=== PATIENT | female | born 1965 | race Caucasian/White ===

== ENCOUNTER 2019-04-07 13:51 | Outpatient (CLI) | payer MEDICARE, MEDICAID, SELFPAY ==
[2019-04-07 14:31] LABS: INR 1.1; Prothrombin Time 13.7 Seconds (11.1-14.7)
[2019-04-07 14:32] LABS: Partial Thromboplastin Time 32.8 SECONDS (22.3-36.8)
[2019-04-07 14:35] LABS: Blood Urea Nitrogen 10 mg/dL (7-17); Calcium 8.4 mg/dL (8.4-10.2); Carbon Dioxide 25 mmol/L (22-30); Chloride 105 mmol/L (98-107); Estimated Glomerular Filt Rate > 60; Glucose 83 mg/dL (65-105); Potassium 4.2 mmol/L (3.4-5.0); Sodium 136 mmol/L (137-145)
== END 2019-04-07 13:52 | disposition home or self-care (01) ==
LOC: ANHSURGERY 14:00
PROVIDERS: Anesthesiology; PCP Internal Medicine; Visit Provider Otolaryngology
DX: Z51.81 Encounter for therapeutic drug level monitoring (principal); R69 Illness, unspecified
CPT/HCPCS: 36415; 80048; 85610; 85730

== ENCOUNTER 2019-04-13 00:56 | Day surgery (SDC) | payer MEDICARE, MEDICAID, SELFPAY ==
[2019-04-06 11:33] VITALS: BMI 35.5
--- NOTE | 2019-04-12 11:25 | HP_ITS ---
DATE OF SERVICE: 04/13/2019 HISTORY: A 53-year-old with hoarseness. She has a long history of hoarseness. Her throat is not sore. She has been coughing. She has been on multiple medications. REVIEW OF SYSTEMS: Unremarkable. Cords are irritated on indirect examination. PHYSICAL EXAMINATION: CHEST: Clear. HEART: Without murmurs. ABDOMEN: Soft. EXTREMITIES: Negative. IMPRESSION: Hoarseness, possible vocal nodules. PLAN: Microlaryngoscopy and vocal stripping. D I MT: Say
--- NOTE | 2019-04-12 18:01 | WPDANESEPP ---
Anes - Eval Pre Procedure Procedure: Operation Date: 04/13/19 07:30 Proposed Procedures p Microlaryngoscopy with Biopsy - King Shin MD Date/Time: 04/12/19 18:01 Pre Op Diagnosis: Chronic Hoarseness Patient Data Age: 53 Gender: F Height: 1.68 m Weight: 99.79 kg Allergies Allergy/AdvReac Type Severity Reaction Status Date / Time pioglitazone Allergy Unknown Unknown Verified 04/06/19 11:34 fentanyl AdvReac Unknown N/V Verified 04/06/19 11:34 Home Medications Medication Instructions Recorded Confirmed Type amlodipine 5 mg tablet 5 mg PO DAILY 01/20/19 04/06/19 History levothyroxine 125 mcg tablet 125 mcg PO DAILY 01/20/19 04/06/19 History potassium chloride 10 mEq 10 meq PO DAILY 01/20/19 04/06/19 History tablet,extended release promethazine 25 mg tablet 25 mg PO Q6H PRN 01/20/19 04/06/19 History albuterol sulfate 2 puff INHALATION Q6H PRN 04/06/19 04/06/19 History citalopram 20 mg PO DAILY 04/06/19 04/06/19 History cyclobenzaprine 10 mg PO TID PRN 04/06/19 04/06/19 History diclofenac sodium 1 % TOPICAL DAILY PRN 04/06/19 04/06/19 History diclofenac sodium 100 mg PO BID 04/06/19 04/06/19 History furosemide 80 mg PO DAILY 04/06/19 04/06/19 History gabapentin 300 mg PO TID 04/06/19 04/06/19 History lidocaine 1 applic TOPICAL DAILY PRN 04/06/19 04/06/19 History pantoprazole 40 mg PO QAM 04/06/19 04/06/19 History trazodone 50 - 150 mg PO HS 04/06/19 04/06/19 History warfarin 2 mg PO DAILY 04/06/19 04/06/19 History warfarin 5 mg PO DAILY 04/06/19 04/06/19 History Patient hx anesthesia problems: other (slow to wake) Family hx anesthesia problems: other (mother is also slow to wake) [facility], LAT[facility] Past Medical History Medical History (Updated 04/12/19 @ 18:08 by Tara Eastman CRNA) Anxiety Arthritis Asthma Carpal tunnel syndrome CHF (congestive heart failure) Chronic pain Cirrhosis CVA (cerebral vascular accident) Degenerative disc disease Depression Diabetes 1.5, managed as type 2 Fibromyalgia GERD (gastroesophageal reflux disease) Gout Headaches due to old head injury Heart murmur HTN (hypertension) IBS (irritable bowel syndrome) Methadone dependence ALAYNA (obstructive sleep apnea) Surgical History Surgical History (Updated 04/12/19 @ 18:08 by Tara Eastman CRNA) H/O: hysterectomy History of bilateral carpal tunnel release Hx of cholecystectomy Previous section Family History Family History (Updated 09/29/15 @ 23:19 by DOCTOR UNKNOWN) Mother Hypertension Family history of malignant neoplasm of breast in first degree relative Father Family history of heart disease in male family member before age 55 Other Family history of malignant neoplasm of male breast Social History Social History Smoking status: Never smoker Alcohol intake: never Exam Day of Procedure 04/12/19 18:01
[2019-04-13] VITALS (7 sets, daily range): BP systolic 121–165; BP diastolic 52–81; PULSE 100–110; RESP 20–22; TEMP 37–37.3; O2SAT 92–100
--- NOTE | 2019-04-13 05:44 | WPDHPUPDATE1 ---
History and Physical Update Update Date/Time: 04/13/19 05:44 History and Physical has been reviewed, including an updated exam of the patient. There are NO changes in the patient's condition. Risks, benefits, and alternatives have been discussed and questions answered. Patient agrees to proceed with procedure.
[2019-04-13] MEDS: LACTATED RINGERS 1,000 ML 30 ML IV CONT (06:40)
--- NOTE | 2019-04-13 06:54 | WPDANESEFPP ---
Anes - Eval Final PreProcedure Day of Procedure 04/13/19 06:54 Patient weight: obese Lungs: clear to auscultation Airway: Mallampati scale class II and special considerations poor dentition Neurological: alert and oriented ASA classification: IV Emergent: no Anesthetic plan: proceed Anesthesia type and monitoring: general ETT and standard monitoring Informed Consent: The patient's anesthetic plan and its attendant risks and benefits were discussed with the patient/family/POA. Questions were solicited and answers provided to the satisfaction of the patient/family/POA.
--- NOTE | 2019-04-13 07:36 | PM.OP ---
Procedure Note - Brief Procedure Note - Brief Date of procedure: 04/13/19 Pre-op diagnosis: Chronic Hoarseness Procedure performed: Patient was prepped and draped and general anesthesia the laryngoscope was introduced to the level of glottis. With micro technique a small area of leukoplakia on the right cord was stripped off of smaller area on the left side was stripped off sent for pathologic examination. Patient awakened returned to recovery in good condition Anesthesia: GLMA and GETA Surgeon: King Shin MD Estimated blood loss (mL): 0 Drains: No Packing: No Pathology: yes Complications: No immediate complications Condition: stable Disposition: PACU
--- NOTE | 2019-04-13 08:34 | SUR.PHASEI ---
0830; PT AWAKE AND ALERT. DENIES PAIN. NO LONGER COUGHING. READY FOR PO FLUIDS.
== END 2019-04-13 09:33 | disposition home or self-care (01) ==
PROVIDERS: PCP Internal Medicine; Visit Provider Otolaryngology
PROC: 0CJS8ZZ Inspection of Larynx, Via Natural or Artificial Opening Endoscopic (ICD-10-PCS; CPT 31575; principal; 2019-04-13 07:30)
DX: J38.3 Other diseases of vocal cords (principal); I11.0 Hypertensive heart disease with heart failure; I50.9 Heart failure, unspecified; E13.9 Other specified diabetes mellitus without complications; K74.60 Unspecified cirrhosis of liver; M79.7 Fibromyalgia; K21.9 Gastro-esophageal reflux disease without esophagitis; F41.8 Other specified anxiety disorders; Z86.73 Personal history of transient ischemic attack (TIA), and cerebral infarction without residual deficits; M10.9 Gout, unspecified; G47.33 Obstructive sleep apnea (adult) (pediatric); K58.9 Irritable bowel syndrome, unspecified; F11.90 Opioid use, unspecified, uncomplicated; G89.29 Other chronic pain; J45.909 Unspecified asthma, uncomplicated; M19.90 Unspecified osteoarthritis, unspecified site; Z79.01 Long term (current) use of anticoagulants
CPT/HCPCS: 31541; 88305; A9270; J0330; J1170; J2250; J2405; J2704; J7120

== ENCOUNTER 2019-04-27 23:14 | Emergency (ER) | payer MEDICARE, MEDICAID, SELFPAY ==
--- NOTE | ~2019-04-27 | CT_ITS ---
EXAMINATION: Shakira Murray MD DATE: 04/28/2019 02:35 INDICATION: Chest pain radiating to the right flank. TECHNIQUE: Computed tomographic angiography (CTA) of the chest, abdomen, and pelvis was performed wit h 100 mL Omnipaque-350 intravenous contrast. Automated exposure control and iterative reconstruction technique were employed. The dose-length product was 1728.88 mGy-cm. Maximum intensity projection 3D- reconstructions of the aorta and other arteries were constructed by the technologist on a separate wo rkstation. COMPARISON: CT abdomen and pelvis 03/14/2018 FINDINGS: CHEST CTA: The lungs demonstrate mild atelectasis. No pleural effusion. The heart size is normal. No pericardial effusion. There is no pulmonary embolus. Thoracic aorta is normal in caliber. There is moderate thor acic spondylosis. ABDOMEN AND PELVIS CTA: The liver demonstrates surface nodularity, consistent with cirrhosis. There is a TIPS in expected pos ition that is patent. There are changes of cholecystectomy. There are changes of splenic artery aneur ysm embolization. The spleen is mildly enlarged, consistent with portal venous hypertension. There is focal volume loss of the spleen, consistent with old infarct. The pancreas and adrenal glands are no rmal. There is cortical thinning of the kidneys. There is a 4 mm stone in right kidney. There are no dilated loops of bowel. The appendix is normal. There is wall thickening of the proximal duodenum wit h mild fat stranding. There are no pathologically enlarged lymph nodes. There is trace ascites. Abdom inal aorta is normal in caliber. There is moderate lumbar spondylosis. IMPRESSION: 1. Normal aorta. No aneurysm or dissection. 2. Cirrhosis of the liver status post TIPS. 2. Wall thickening in the proximal duodenum with mild fat stranding suspicious for duodenitis. Reviewed, dictated and finalized at location A. SELOR MANAGER
[2019-04-27 23:29] VITALS: BP 135/67; PULSE 99; RESP 20; TEMP 36.6; O2SAT 98
--- NOTE | 2019-04-28 01:36 | ED.ABDPAIN ---
HPI - Abdominal Pain General Chief Complaint: Back Pain/Injury Stated Complaint: back pain Time Seen by Provider: 04/28/19 01:19 Source: patient and RN notes reviewed Mode of arrival: ambulatory Limitations: no limitations History of Present Illness HPI narrative: Pt is a 53 y/o female with a Hx of kidney stones and chronic back pain, who presents to the ED with c/o rt lower ABD pain starting this evening. She notes that she developed pain in the rt side of her back while at work earlier this evening. Pt states that she took prescribed Gabapentin for her pain, but denies having any relief from her pain. She notes that she later developed pain in the rt side of her chest and rt lower ABD. Pt describes her chest pain as a pressure. She reports nausea and SOB accompanying the intense pain, but denies any diaphoresis, LE edema, numbness, dysuria, hematuria, shoulder pain, jaw pain, or arm pain. Pt states that she was recently diagnosed with acute bronchitis. Patient denies any chest pain currently. MD elicited complaint: abdominal pain Onset (ago): hour(s) (several) Location: other (rt lower ABD) Associated symptoms: nausea and other (rt sided chest pain; back pain; dyspnea) Treatments prior to arrival: prescription analgesics (Gabapentin) Related Data Home Medications Medication Instructions Recorded Confirmed amlodipine 5 mg tablet 5 mg PO DAILY 01/20/19 04/13/19 levothyroxine 125 mcg tablet 125 mcg PO DAILY 01/20/19 04/13/19 potassium chloride 10 mEq 10 meq PO DAILY 01/20/19 04/13/19 tablet,extended release promethazine 25 mg tablet 25 mg PO Q6H PRN 01/20/19 04/13/19 albuterol sulfate 2 puff INHALATION Q6H PRN 04/06/19 04/13/19 citalopram 20 mg PO DAILY 04/06/19 04/13/19 cyclobenzaprine 10 mg PO TID PRN 04/06/19 04/13/19 diclofenac sodium 1 % TOPICAL DAILY PRN 04/06/19 04/13/19 diclofenac sodium 100 mg PO BID 04/06/19 04/13/19 furosemide 80 mg PO DAILY 04/06/19 04/13/19 gabapentin 300 mg PO TID 04/06/19 04/13/19 lidocaine 1 applic TOPICAL DAILY PRN 04/06/19 04/13/19 pantoprazole 40 mg PO QAM 04/06/19 04/13/19 trazodone 50 - 150 mg PO HS 04/06/19 04/13/19 warfarin 2 mg PO DAILY 04/06/19 04/13/19 warfarin 5 mg PO DAILY 04/06/19 04/13/19 doxepin 10 mg PO DAILY 04/28/19 04/28/19 duloxetine mg PO 04/28/19 ferrous sulfate 325 mg PO DAILY 04/28/19 04/28/19 fluticasone propionate INTRANASAL 04/28/19 furosemide 04/28/19 rizatriptan 10 mg PO ONCE 04/28/19 04/28/19 simethicone 80 mg PO DAILY 04/28/19 04/28/19 sitagliptin 25 mg PO DAILY 04/28/19 04/28/19 spironolactone 04/28/19 Allergies Allergy/AdvReac Type Severity Reaction Status Date / Time fentanyl AdvReac Unknown N/V Verified 04/28/19 02:29 Review of Systems Review of Systems: Narrative: CONSTITUTIONAL: Denies fever, chills, or sweats. CARDIOVASCULAR: Reports rt sided chest pain, now resolved. Denies palpitations or LE edema. RESPIRATORY: Denies cough. Reports dyspnea. GASTROINTESTINAL: Reports rt lower abdominal pain and nausea. Denies vomiting or diarrhea. GENITOURINARY: Denies dysuria or hematuria. MUSCULOSKELETAL: Reports back pain. Denies joint pain, jaw pain, arm pain, or myalgia. All systems reviewed & are unremarkable except as noted in HPI and below PMFSH Past Medical History Medical History (Updated 04/28/19 @ 05:11 by Shakira Murray MD) Anxiety Arthritis Asthma Carpal tunnel syndrome CHF (congestive heart failure) Chronic pain Cirrhosis CVA (cerebral vascular accident) Degenerative disc disease Depression Diabetes 1.5, managed as type 2 Fibromyalgia GERD (gastroesophageal reflux disease) Gout Headaches due to old head injury Heart murmur HTN (hypertension) IBS (irritable bowel syndrome) Kidney stones Methadone dependence ALAYNA (obstructive sleep apnea) Surgical History Surgical History H/O: hysterectomy History of bilateral carpal tunnel release Hx of cholecystectomy Previous section
[2019-04-28 01:42] VITALS: BP 163/76; PULSE 90; RESP 18; O2SAT 100
--- NOTE | 2019-04-28 01:43 | ECG_ITS ---
Measurements Intervals [place] Rate: 92 P: 37 OH: 139 QRS: 0 QRSD: 104 T: 40 QT: 374 QTc: 463 Interpretive Statements SINUS RHYTHM VOLTAGE CRITERIA FOR LVH CONSIDER INFERIOR INFARCT, AGE INDETERMINATE ABNORMAL ECG Electronically Signed On 04-28-2019 7:08:16 WAREHOUSE OPERATIONS MANAGER by Faizan Cedillo D.O.
[2019-04-28 02:01] LABS: Basophils Percent Auto 0.5 % (0.2-1.2); Eosinophils Absolute Auto 0.1 K/mm3 (0-0.3); Hemoglobin 9.2 g/dL (12.0-15.0); Immature Granulocyte Absolute 0.02 K/mm3 (0.00-0.031); Immature Granulocyte Percent A 0.3 % (0-0.5); Lymphocytes Absolute Auto 0.81 K/mm3 (0.9-3.2); Mean Corpuscular HGB Conc 30.7 g/dl (32-36); Mean Corpuscular Hemoglobin 23.8 pg (26-34); Mean Corpuscular Volume 77.7 fl (80-100); Mean Platelet Volume 9.2 fl (7.4-10.4); Monocytes Absolute Auto 0.5 K/mm3 (0.1-0.6); Monocytes Percent Auto 7.1 % (2.6-8.5); Neutrophils Absolute Auto 5.9 K/mm3 (1.3-6.7); Neutrophils Percent Auto 80.1 % (45.5-73.1); Platelet Count Result 205 k/mm3 (150-375); Red Blood Count 3.86 M/mm3 (4.2-5.4); Red Cell Distribution Width 18.2 % (11.5-14.5); White Blood Count 7.4 K/mm3 (4.5-10.0)
[2019-04-28 02:09] LABS: INR 1.2; Prothrombin Time 14.4 Seconds (11.1-14.7)
[2019-04-28 02:10] LABS: Partial Thromboplastin Time 33.7 SECONDS (22.3-36.8)
[2019-04-28 02:12] LABS: Alanine Aminotransferase 52 U/L (4-35); Albumin Level 3.1 g/dL (3.5-5.1); Alkaline Phosphatase 265 U/L (38-126); Aspartate Amino Transferase 89 U/L (14-36); Bilirubin,Total 0.8 mg/dL (0.2-1.3); Blood Urea Nitrogen 15 mg/dL (7-17); Calcium 8.7 mg/dL (8.4-10.2); Carbon Dioxide 23 mmol/L (22-30); Chloride 105 mmol/L (98-107); Estimated CRCL calculation 98 ml/min; Estimated Glomerular Filt Rate > 60; Glucose 122 mg/dL (65-105); Lipase 138 U/L (23-300); Potassium 4.1 mmol/L (3.4-5.0); Sodium 139 mmol/L (137-145)
[2019-04-28] MEDS: ACETAMINOPHEN 500 MG TABLET 1000 MG PO (02:22)
[2019-04-28] MEDS: ASPIRIN 81 MG CHEWABLE TABLET 324 MG PO (02:22)
[2019-04-28] MEDS: SODIUM CHLORIDE 0.9% IV 1,000 ML 999 ML IV CONT (02:22)
[2019-04-28 02:23] LABS: Troponin I < 0.012 ng/mL (0.000-0.034)
[2019-04-28] MEDS: FAMOTIDINE 20 MG/2 ML VIAL IV PUSH (02:23)
[2019-04-28] MEDS: ONDANSETRON INJ 4 MG/2 ML VIAL IV PUSH (02:23)
[2019-04-28] MEDS: MORPHINE SULFATE 4 MG/ML INJ IV PUSH (02:23)
[2019-04-28 02:45] VITALS: BP 154/70; PULSE 100; RESP 16; O2SAT 100
[2019-04-28 02:48] LABS: Add Urine Microscopic? YES; Appearance Urine Clear (Clear); Bilirubin Urine Negative (Negative); Blood Urine 3+ (Negative); Color Urine Yellow (Yellow); Glucose Urine UA Negative (Negative); Ketones Urine Negative (Negative); Leukocyte Esterase Ur Trace LEU/UL (Negative); Mucus Urine Moderate /lpf; Nitrate Urine Negative (Negative); Protein Urine 1+ mg/dL (Negative); RBC Urine 21-50 /hpf (0-2); Specific Grav Ur 1.028 (1.001-1.035); Squamous Epithelial Cell Urine Few /hpf (Few); Urobilinogen Urine Negative mg/dL (<2.0); WBC Urine 16-20 /hpf
[2019-04-28 04:01] VITALS: BP 135/72; PULSE 95; RESP 16; O2SAT 100
[2019-04-28 04:30] VITALS: BP 131/93; PULSE 97; RESP 16; O2SAT 100
[2019-04-28 04:39] LABS: Troponin I < 0.012 ng/mL (0.000-0.034)
[2019-04-28 05:23] VITALS: BP 141/56; PULSE 95; RESP 16; TEMP 36.8; O2SAT 100
== END 2019-04-28 05:25 | disposition home or self-care (01) ==
PROVIDERS: Emergency Provider Emergency Medicine; PCP Internal Medicine
DX: R10.31 Right lower quadrant pain (principal); R07.89 Other chest pain; I11.0 Hypertensive heart disease with heart failure; I50.9 Heart failure, unspecified; E11.9 Type 2 diabetes mellitus without complications; Z86.73 Personal history of transient ischemic attack (TIA), and cerebral infarction without residual deficits; Z79.01 Long term (current) use of anticoagulants
CPT/HCPCS: 36415; 71275; 74174; 80053; 81001; 83690; 84484; 85025; 85610; 85730; 87086; 87088; 93005; 96361; 96374; 96375; 99284; A9270; J2270; J2405; J7030; Q9967

== ENCOUNTER 2019-07-15 15:45 | Inpatient (IN) | payer MEDICARE, MEDICAID, SELFPAY ==
[2019-07-15] VITALS (7 sets, daily range): BP systolic 97–157; BP diastolic 46–114; PULSE 102–117; RESP 18–28; TEMP 38–39.2; O2SAT 94–100; BMI 36.3
--- NOTE | ~2019-07-15 | CT_ITS ---
EXAMINATION: CT abdomen pelvis wo con EXAM DATE: 07/15/2019 17:49 INDICATION: Right flank pain, fever. History of kidney stones. TECHNIQUE: Spiral CT of the abdomen and pelvis was performed without contrast. Axial, coronal and sag ittal images were reviewed. The dose-length product (DLP) for this examination was 627.03 mGy-cm. T he exposure was tailored according to patient size (auto mA exposure control), and iterative reconstr uction (ASIR) was used as additional dose reduction technique. Comparison is made to prior examinatio n from 04/28/2019. FINDINGS: There are 3 mm and 1 mm right superior calyceal stones. There is no hydronephrosis or obstr ucting kidney stone. Mild fat stranding surrounding the right upper ureter. Recommend checking urinal ysis to exclude upper urinary tract infection. There is punctate left calyceal stone. The uterus is n ot identified and has likely been surgically resected. The bladder is collapsed at time of imaging l imiting evaluation. Cirrhosis, small amount of perihepatic ascites and TIPS. There is mild splenomeg yohan, some surgical coils at the splenic hilum and small region of chronic splenic infarction. Adrenal glands, pancreas are unremarkable. There are cholecystectomy clips. There is no retroperitoneal or pelvic lymphadenopathy. The appendix is normal. The stomach and small bowel are unremarkable. There is expected amount of c olonic stool. No free intraperitoneal gas. The heart is normal in size. There are no pericardial or pleural effusions. The lung bases are unremarkable. The bones are unremarkable. IMPRESSION: 1. Mild fat stranding surrounding proximal aspect right ureter, possible upper urinary tract infecti on. Correlate with urinalysis. 2. Small right, punctate left nephrolithiasis. 3. Cirrhosis, TIPS, small perihepatic ascites and mild splenomegaly. 4. Surgical changes. Reviewed, dictated and finalized at location A. IMPRESSION: 1. Mild fat stranding surrounding proximal aspect right ureter, possible upper urinary tract infection. Correlate with urinalysis. 2. Small right, punctate left nephrolithiasis. 3. Cirrhosis, TIPS, small perihepatic ascites and mild splenomegaly. 4. Surgical changes.
--- NOTE | ~2019-07-15 | XR_ITS ---
EXAMINATION: XR chest 1V portable EXAM DATE: 07/15/2019 17:09 INDICATION: Fever, headache, cough, back pain. TECHNIQUE: Portable AP frontal chest x-ray was obtained. Comparison is made to prior examination from 01/19/2018. FINDINGS: The lungs are clear. There are no pleural effusions. The cardiomediastinal silhouette is within normal limits. There is no pneumothorax suspected. The bones and soft tissues are unremarkab le. IMPRESSION: No acute cardiopulmonary findings. Reviewed, dictated and finalized at location A.
--- NOTE | 2019-07-15 16:37 | ECG_ITS ---
Measurements Intervals [place] Rate: 115 P: 41 AR: 130 QRS: 16 QRSD: 97 T: 42 QT: 304 QTc: 421 Interpretive Statements SINUS TACHYCARDIA BORDERLINE ST ABNORMALITY- HIGH LATERAL LEADS ABNORMAL ECG Electronically Signed On 07-15-2019 17:09:16 CDT by Faizan Cedillo D.O.
--- NOTE | 2019-07-15 17:03 | ED.FEVER ---
HPI - Fever General Chief Complaint: Chest Pain Stated Complaint: back pain/cp/sob/fever Time Seen by Provider: 07/15/19 16:38 Source: patient Mode of arrival: ambulatory Limitations: no limitations History of Present Illness HPI Narrative: Patient is a 53-year-old female who presents to the emergency department with complaint of fever. Patient reports onset of fever today. Patient noted she was tachycardic with heart rate in 120s at home. Patient has several other symptoms. First she mentions that she has had pain in the right scapular region for couple of months that has been radiating down the right side of her back and seems like it is a bit worse. She also reports she has had urinary symptoms of dysuria and cloudy, foul-smelling urine over the past few days. Patient reports headache and cough for the past few days as well. Patient denies any sick contacts. She states she is on disability and stays at home. She reports her sister brings for her groceries and she has limited contact with friends none of whom have been ill. MD elicited complaint: fever Onset (ago): hour(s) Related Data Home Medications Medication Instructions Recorded Confirmed amlodipine 5 mg tablet 5 mg PO DAILY 01/20/19 04/13/19 levothyroxine 125 mcg tablet 125 mcg PO DAILY 01/20/19 04/13/19 potassium chloride 10 mEq 10 meq PO DAILY 01/20/19 04/13/19 tablet,extended release promethazine 25 mg tablet 25 mg PO Q6H PRN 01/20/19 04/13/19 albuterol sulfate 2 puff INHALATION Q6H PRN 04/06/19 04/13/19 citalopram 20 mg PO DAILY 04/06/19 04/13/19 diclofenac sodium 1 % TOPICAL DAILY PRN 04/06/19 04/13/19 diclofenac sodium 100 mg PO BID 04/06/19 04/13/19 furosemide 80 mg PO DAILY 04/06/19 04/13/19 gabapentin 300 mg PO TID 04/06/19 04/13/19 lidocaine 1 applic TOPICAL DAILY PRN 04/06/19 04/13/19 pantoprazole 40 mg PO QAM 04/06/19 04/13/19 trazodone 50 - 150 mg PO HS 04/06/19 04/13/19 warfarin 2 mg PO DAILY 04/06/19 04/13/19 warfarin 5 mg PO DAILY 04/06/19 04/13/19 doxepin 10 mg PO DAILY 04/28/19 04/28/19 duloxetine 30 mg PO DAILY 04/28/19 ferrous sulfate 325 mg PO DAILY 04/28/19 04/28/19 fluticasone propionate 1 spray INTRANASAL DAILY 04/28/19 rizatriptan 10 mg PO ONCE 04/28/19 04/28/19 simethicone 80 mg PO DAILY 04/28/19 04/28/19 sitagliptin 25 mg PO DAILY 04/28/19 04/28/19 spironolactone 100 mg PO DAILY 04/28/19 methocarbamol 1,000 mg PO TID 07/15/19 Allergies Allergy/AdvReac Type Severity Reaction Status Date / Time fentanyl AdvReac Unknown N/V Verified 04/28/19 02:29 Review of Systems Review of Systems: All systems reviewed & are unremarkable except as noted in HPI and below Constitutional: Constitutional: Reports chills and Reports fever(s) Respiratory: Respiratory: Reports cough and Denies dyspnea Gastrointestinal: Gastrointestinal: Denies abdominal pain, Denies nausea and Denies vomiting Genitourinary: Genitourinary: Reports nocturia, Reports dysuria and Reports flank pain Musculoskeletal: Musculoskeletal: Reports back pain Neurologic: Reports headache(s) PMFSH Past Medical History Medical History Anxiety Arthritis Asthma Carpal tunnel syndrome CHF (congestive heart failure) Chronic pain Cirrhosis CVA (cerebral vascular accident) Degenerative disc disease Depression Diabetes 1.5, managed as type 2 Fibromyalgia GERD (gastroesophageal reflux disease) Gout Headaches due to old head injury Heart murmur HTN (hypertension) IBS (irritable bowel syndrome) Kidney stones Methadone dependence ALAYNA (obstructive sleep apnea) Surgical History Surgical History H/O: hysterectomy History of bilateral carpal tunnel release Hx of cholecystectomy Previous section Family History Family History (Updated 09/29/15 @ 23:19 by DOCTOR UNKNOWN) Mother Hypertension Family history of malignant neoplasm of breast in fir
[2019-07-15 17:10] LABS: Hematocrit 24.9 % (37.0-47.0); Hemoglobin 7.4 g/dL (12.0-15.0); Immature Platelet Fraction Pct 2.3 % (0.9-11.2); Mean Corpuscular HGB Conc 29.7 g/dl (32-36); Mean Corpuscular Hemoglobin 19.6 pg (26-34); Mean Platelet Volume 10.6 fl (7.4-10.4); Platelet Count Result 195 k/mm3 (150-375); Red Blood Count 3.77 M/mm3 (4.2-5.4); Red Cell Distribution Width 21.3 % (11.5-14.5); White Blood Count 11.5 K/mm3 (4.5-10.0)
[2019-07-15 17:18] LABS: INR 1.2; Prothrombin Time 14.9 Seconds (11.1-14.7)
[2019-07-15 17:19] LABS: Partial Thromboplastin Time 31.9 SECONDS (22.3-36.8)
[2019-07-15 17:23] LABS: Alanine Aminotransferase 71 U/L (4-35); Albumin Level 3.2 g/dL (3.5-5.1); Alkaline Phosphatase 169 U/L (38-126); Aspartate Amino Transferase 118 U/L (14-36); Bilirubin,Total 0.9 mg/dL (0.2-1.3); Blood Urea Nitrogen 14 mg/dL (7-17); CRP 4.7 mg/dL (<1.0); Calcium 8.5 mg/dL (8.4-10.2); Carbon Dioxide 22 mmol/L (22-30); Chloride 109 mmol/L (98-107); Estimated CRCL calculation 94 ml/min; Estimated Glomerular Filt Rate > 60; Glucose 109 mg/dL (65-105); Potassium 4.3 mmol/L (3.4-5.0); Sodium 136 mmol/L (137-145)
[2019-07-15 17:33] LABS: Troponin I < 0.012 ng/mL (0.000-0.034)
[2019-07-15] MEDS: SODIUM CHLORIDE 0.9% IV 1,000 ML 999 ML (17:33)
[2019-07-15 17:35] LABS: Lactic Acid Reflex 1.1 mmol/L (0.7-2.1)
[2019-07-15 17:54] LABS: Band Neutrophils Percent 10 % (0-6); Lymphocytes Absolute Manual 0.57 K/mm3 (1.1-4.5); Monocytes Absolute Manual 0.46 K/mm3 (0.1-0.90); Monocytes Percent Manual 4 % (3-9); Neutrophils Absolute Manual 10.46 K/mm3 (1.7-7.2); Neutrophils Percent Manual 81 % (46-73); Nucleated Red Blood Cells 1 %; Platelet Estimate Adequate (Adequate); Total Cells Counted 100
[2019-07-15 17:55] LABS: Anisocytosis 3+ (NORMAL); Hypochromasia 1+ (NORMAL)
[2019-07-15 19:29] LABS: Appearance Urine Clear (Clear); Color Urine Yellow (Yellow); Protein Urine 2+ mg/dL (Negative); Specific Grav Ur 1.019 (1.001-1.035)
[2019-07-15 19:30] LABS: Add Urine Microscopic? YES; Bilirubin Urine Negative (Negative); Blood Urine 1+ (Negative); Glucose Urine UA Negative (Negative); Ketones Urine Negative (Negative); Leukocyte Esterase Ur 3+ LEU/UL (Negative); Nitrate Urine Negative (Negative); Urobilinogen Urine Negative mg/dL (<2.0)
[2019-07-15 19:31] LABS: Mucus Urine Rare /lpf; Squamous Epithelial Cell Urine Many /hpf (Few); WBC Urine >75 /hpf
--- NOTE | 2019-07-15 21:12 | ADMGEN ---
This patient, Liv Delong, was admitted to [facility] Surg Room 328-01. Patient/family oriented to hospital policies and general routines including ID bracelet, bed and alarms, visiting hours, pain management, procedures, bathroom and other care routines, personal items, smoking policy, room service/diet, and visiting hours. Valuables list has been completed. Information on how to activate the Rapid Response Team has been discussed. Patient/Family are encouraged to report perceived risks to care and to ask questions if they do not understand what they are told or what they should do.
--- NOTE | 2019-07-15 21:40 | PM.IMHP ---
H&P: HPI History of Present Illness Chief complaint: Fever Narrative: Date and time of patient contact: 07/15/2019 at 9:40 p.m. Liv Delong is a 53 year old female with a past medical history of cirrhosis status post tips, hypertension, and diabetes who presented to the ER with fever and multiple complaints. She reports that she has had 1 week of increasing pain. Pain is ranged anywhere from her right scapula all the way down her back. Her pain is been constant and is worsening. She has noticed for 5 days of dysuria and foul-smelling urine. She denied any change in urine color or hematuria. Two or 3 days ago she had some nausea with a couple of episodes of vomiting but has not had any further vomiting since that time. She has had decreased oral intake. She denies any chest pain but has had increasing shortness of breath for the last 2 days with a dry not nonproductive cough. She was last out of the house about 2 weeks ago when she went to buy groceries. She denies any recent ill contacts. She lives alone with her 5-year-old cat. She usually has dyspnea with exertion but not at rest. But currently she is having more dyspnea even at rest. She denies any significant lower extremity swelling. She reports that her legs are down more than usual. She denies any known contacts with COVID-19. She does have a history of migraine headaches. She had been having nonspecific headache for couple of days but then today her headache was worse and was severe enough that she would call it a migraine. She subsequently took 1 dose of her Maxalt which helped her headache. She denies any headache currently. She spiked a fever up to 103.3 around 3:00 a.m.. She took 1 full-dose aspirin which brought her fever down to 99?. She does not usually take Tylenol at home due to her cirrhosis. It is thought that her cirrhosis is due to autoimmune disease. The patient states that she is on chronic anticoagulation due to history of portal venous thrombus. She denies any hematochezia or melena. She reports that her hemoglobin has been lower than usual when it was followed up at [facility] recently. Review of Systems Review of Systems: Narrative: 12 systems were reviewed with pertinent positives and negatives per HPI. Except as documented in the HPI, all other systems were reviewed and are negative. [facility] Past Medical History Medical History (Updated 07/16/19 @ 09:14 by Beryl Munoz DO) Anxiety Arthritis Asthma CHF (congestive heart failure) Normal echocardiogram April 2017 with EF of 60% with mild left atrial enlargement normal diastolic function Chronic pain Previously on methadone but this was discontinued in June of 2018. The patient is requesting narcotic medications while she is inpatient Cirrhosis Status post TIPS MANAGED BY DR. Bradford at [facility] CVA (cerebral vascular accident) October 2005 Degenerative disc disease Depression Diabetes 1.5, managed as type 2 Managed by diet with her last hemoglobin A1c in our system performed August 2018 was 4.7 Essential hypertension Fibromyalgia On chronic pain medication GERD (gastroesophageal reflux disease) Gout Headaches due to old head injury Heart murmur Normal echocardiogram April 2017 Hypothyroidism IBS (irritable bowel syndrome) Kidney stones Left carpal tunnel syndrome ALAYNA (obstructive sleep apnea) Portal vein thrombosis On chronic anticoagulation with Coumadin SLE (systemic lupus erythematosus related syndrome) Surgical History Surgical History (Updated 07/16/19 @ 02:06 by Beryl Munoz DO) H/O: hysterectomy In her early to mid 30's due to fibrotic disease without soft finger oophorectomy History of carpal tunnel surgery of right wrist History of laparoscopic cholecystectomy July 2016 Previous section 03/12/1983 once in 1987 S/P TIPS (transjugular intrahepatic portosystemic shunt) Late 2018 Family History Family History (Updated 07/16/19 @ 02:07 by Beryl Hdz
[2019-07-15] MEDS: ACETAMINOPHEN 500 MG TABLET PO (22:52)
[2019-07-15] MEDS: methocarbamoL 500 MG TABLET 1000 MG PO (22:53)
[2019-07-16] VITALS (12 sets, daily range): BP systolic 99–140; BP diastolic 39–72; PULSE 63–96; RESP 14–20; TEMP 36.7–38.1; O2SAT 96–100; BMI 36.3
[2019-07-16] MEDS: WARFARIN (*PBKC) 10 MG TABLET PO (00:59)
[2019-07-16] MEDS: LIDOCAINE 5% PATCH 1 PATCH TRANSDERM (01:01)
[2019-07-16] MEDS: TRAMADOL HCL 50 MG TABLET PO (03:30)
[2019-07-16] MEDS: PROMETHAZINE HCL 25 MG TABLET PO (05:11)
[2019-07-16] MEDS: LEVOTHYROXINE SODIUM 125 MCG TABLET PO (05:11)
[2019-07-16] MEDS: FERROUS SULFATE 324 MG TABLET PO (08:01)
[2019-07-16] MEDS: GABAPENTIN 300 MG CAPSULE PO ×3 (08:02→16:20)
[2019-07-16] MEDS: methocarbamoL 500 MG TABLET 1000 MG PO ×3 (08:02→16:21)
[2019-07-16] MEDS: SPIRONOLACTONE 50 MG TABLET 100 MG PO (08:02)
[2019-07-16] MEDS: POTASSIUM CHLORIDE 10 MEQ TABLET.ER PO (08:02)
[2019-07-16] MEDS: PANTOPRAZOLE 40 MG TABLET PO (08:03)
[2019-07-16] MEDS: OMEGA 3 POLYUNSAT FATTY ACIDS 1 GM CAP PO (08:03)
[2019-07-16] MEDS: DULOXETINE HCL 30 MG CAPSULE.DR PO (08:03)
[2019-07-16] MEDS: LACTATED RINGERS 1,000 ML 150 ML IV CONT (08:15)
[2019-07-16 08:25] LABS: Basophils Percent Auto 0.3 % (0.2-1.2); Eosinophils Percent Auto 0.1 % (0-4.4); Hematocrit 22.2 % (37.0-47.0); Immature Granulocyte Absolute 0.03 K/mm3 (0.00-0.031); Immature Granulocyte Percent A 0.4 % (0-0.5); Lymphocytes Absolute Auto 0.66 K/mm3 (0.9-3.2); Mean Corpuscular HGB Conc 29.3 g/dl (32-36); Mean Corpuscular Hemoglobin 19.6 pg (26-34); Mean Corpuscular Volume 66.9 fl (80-100); Mean Platelet Volume 10.7 fl (7.4-10.4); Monocytes Absolute Auto 0.9 K/mm3 (0.1-0.6); Monocytes Percent Auto 12.1 % (2.6-8.5); Neutrophils Absolute Auto 5.7 K/mm3 (1.3-6.7); Neutrophils Percent Auto 78.1 % (45.5-73.1); Platelet Count Result 167 k/mm3 (150-375); Red Blood Count 3.32 M/mm3 (4.2-5.4); Red Cell Distribution Width 21.1 % (11.5-14.5); White Blood Count 7.3 K/mm3 (4.5-10.0)
[2019-07-16 08:32] LABS: Hemoglobin 6.5 g/dL (12.0-15.0)
[2019-07-16 08:34] LABS: Hypochromasia 1+ (NORMAL); Platelet Estimate Adequate (Adequate)
[2019-07-16 08:35] LABS: INR 1.2; Prothrombin Time 15.3 Seconds (11.1-14.7)
[2019-07-16 08:39] LABS: Alanine Aminotransferase 57 U/L (4-35); Albumin Level 2.7 g/dL (3.5-5.1); Alkaline Phosphatase 151 U/L (38-126); Aspartate Amino Transferase 96 U/L (14-36); Bilirubin,Total 1.3 mg/dL (0.2-1.3); Blood Urea Nitrogen 14 mg/dL (7-17); Carbon Dioxide 21 mmol/L (22-30); Chloride 111 mmol/L (98-107); Estimated CRCL calculation 83 ml/min; Estimated Glomerular Filt Rate > 60; Glucose 107 mg/dL (65-105); Potassium 3.8 mmol/L (3.4-5.0); Sodium 134 mmol/L (137-145)
--- NOTE | 2019-07-16 10:34 | PM.IMPN ---
Progress Note: A&P Assessment and Plan (1) Sepsis: Qualifiers: Sepsis acute organ dysfunction status: without acute organ dysfunction Sepsis type: sepsis due to unspecified organism Qualified Code(s): A41.9 - Sepsis, unspecified organism Code(s): A41.9 - Sepsis, unspecified organism Status: Acute Assessment and Plan: Probably secondary to ascending urinary tract infection/pyelonephritis. COVID-19 negative (2) UTI (urinary tract infection): Qualifiers: Urinary tract infection type: acute pyelonephritis Qualified Code(s): N10 - Acute pyelonephritis Code(s): N39.0 - Urinary tract infection, site not specified Status: Acute Assessment and Plan: Probable pyelonephritis. Day 2 Rocephin (3) Kidney stones: Code(s): N20.0 - Calculus of kidney Status: Acute Assessment and Plan: Kidney stones without evidence of ureteral stone. No obstructing stones. (4) Anemia: Qualifiers: Anemia type: unspecified type Qualified Code(s): D64.9 - Anemia, unspecified Code(s): D64.9 - Anemia, unspecified Status: Acute Assessment and Plan: 07/15 Hemoglobin dropped to 6.5 probably due to phlebotomies and IV fluid 07/15 transfuse 1 unit packed red cells and follow-up hemoglobin hematocrit Subjective Date/time seen: 07/16/19 10:34 Interval history: Admitted July 14 with with generalized pain, more so right scapular to back. 07/15. Tolerating diet. No GI or complaints. No chest pain. No increased shortness of breath. No swelling. No abnormal bleeding. Review of Systems Review of Systems: All systems reviewed & are unremarkable except as noted in HPI and below Exam Narrative: Exam Narrative: General: No acute distress, well-developed well-nourished, appears stated age HEENT: Mucous membranes are moist Neck: No JVD Respiratory: Clear to auscultation bilaterally, no increased work of breathing Cardiovascular: Regular rate, S1-S2, 2+ pulses bilateral upper and lower extremities Gastrointestinal: Soft, nontender, normoactive bowel sounds Skin: no pallor, non jaundice, normal temperature Extremities: Trace lower extremity edema, no clubbing, no cyanosis Neurological: Alert and oriented, speech is clear, no facial asymmetry, no gross motor deficits noted on limited exam Psychiatric: Appropriate mood and affect, pleasant and cooperative Objective Data Vital Signs Vital Signs: Vital Signs - 24 hr 07/15/19 15:56 07/15/19 16:10 07/15/19 17:02 Temperature 102.5 F H Pulse Rate 117 H 114 H 112 H Respiratory Rate 27 H 20 19 Blood Pressure 118/86 154/68 H 153/114 H Pulse Oximetry 99 96 98 07/15/19 18:01 07/15/19 20:12 07/15/19 20:16 Temperature Pulse Rate Respiratory Rate 28 H 25 H 27 H Blood Pressure 157/75 H 112/52 L 97/55 L Pulse Oximetry 96 94 100 07/15/19 21:00 07/16/19 02:00 07/16/19 06:00 Temperature 100.4 F H 100.6 F H 99.6 F Pulse Rate 102 H 96 63 Respiratory Rate 18 20 20 Blood Pressure 116/46 L 140/57 L 102/48 L Pulse Oximetry 97 100 100 Intake/Output Intake/Output: Intake & Output 07/13/19 07/14/19 07/15/19 07/16/19 23:59 23:59 23:59 23:59 Intake Total 1150 300 Balance 1150 300 Meds/Results Medications: Active Medications Generic Name Dose Route Start Last Admin Trade Name Freq PRN Reason Stop Dose Admin Acetaminophen 500 mg 07/15/19 21:47 07/15/19 22:52 Tylenol Tablet PO 500 mg Q4H PRN Administration Mild Pain (1-3) or Fever Diclofenac Sodium 1 applic 07/15/19 21:42 Voltaren 1% Gel TOPICAL Q12HR PRN Pain Duloxetine HCl 30 mg 07/16/19 09:00 07/16/19 08:03 Cymbalta PO 30 mg DAILY JSOSY Administration Ferrous Sulfate 324 mg 07/16/19 08:00 07/16/19 08:01 Ferrous Sulfate PO 324 mg DAILY@0800 JOSSY Administration Fish Oil 1 gm 07/16/19 09:00 07/16/19 08:03 Lovaza PO 1 gm CLEMENTE
[2019-07-16 12:49] LABS: SARS-CoV-2 RNA PCR Negative
[2019-07-16] MEDS: SIMETHICONE 80 MG TAB.CHEW PO (13:07)
[2019-07-16] MEDS: TUBING, BLOOD PLUM PUMP TUBING 1 EACH XX (16:19)
[2019-07-16] MEDS: SODIUM CHLORIDE 0.9% IV 250 ML 30 ML IV CONT (16:20)
[2019-07-16] MEDS: WARFARIN (*PBKC) 5 MG TABLET PO (16:21)
[2019-07-16] MEDS: WARFARIN (*PBKC) 2 MG TABLET PO (16:22)
[2019-07-16 22:00] LABS: Hematocrit 27.1 % (37.0-47.0)
[2019-07-17 02:00] VITALS: BP 125/65; PULSE 88; RESP 20; TEMP 38; O2SAT 97
[2019-07-17] MEDS: TRAMADOL HCL 50 MG TABLET PO (02:57)
[2019-07-17] MEDS: LEVOTHYROXINE SODIUM 125 MCG TABLET PO (05:54)
[2019-07-17 06:00] VITALS: BP 127/67; PULSE 84; RESP 16; TEMP 37.2; O2SAT 95
[2019-07-17 06:53] LABS: INR 2.3; Prothrombin Time 24.5 Seconds (11.1-14.7)
[2019-07-17 08:17] VITALS: BP 117/61; PULSE 85; RESP 16; O2SAT 96
[2019-07-17] MEDS: methocarbamoL 500 MG TABLET 1000 MG PO ×3 (08:23→17:59)
[2019-07-17] MEDS: DULOXETINE HCL 30 MG CAPSULE.DR PO (08:24)
[2019-07-17] MEDS: SPIRONOLACTONE 50 MG TABLET 100 MG PO (08:24)
[2019-07-17] MEDS: FERROUS SULFATE 324 MG TABLET PO (08:24)
[2019-07-17] MEDS: OMEGA 3 POLYUNSAT FATTY ACIDS 1 GM CAP PO (08:25)
[2019-07-17] MEDS: GABAPENTIN 300 MG CAPSULE PO ×3 (08:25→18:00)
[2019-07-17] MEDS: POTASSIUM CHLORIDE 10 MEQ TABLET.ER PO (08:25)
[2019-07-17] MEDS: PANTOPRAZOLE 40 MG TABLET PO (08:25)
--- NOTE | 2019-07-17 10:12 | PM.IMPN ---
Progress Note: A&P Assessment and Plan (1) Sepsis: Qualifiers: Sepsis acute organ dysfunction status: without acute organ dysfunction Sepsis type: sepsis due to unspecified organism Qualified Code(s): A41.9 - Sepsis, unspecified organism Code(s): A41.9 - Sepsis, unspecified organism Status: Acute Assessment and Plan: Probably secondary to ascending urinary tract infection/pyelonephritis. COVID-19 negative (2) UTI (urinary tract infection): Qualifiers: Urinary tract infection type: acute pyelonephritis Qualified Code(s): N10 - Acute pyelonephritis Code(s): N39.0 - Urinary tract infection, site not specified Status: Acute Assessment and Plan: Probable pyelonephritis. Day 3 Rocephin (3) Kidney stones: Code(s): N20.0 - Calculus of kidney Status: Acute Assessment and Plan: Kidney stones without evidence of ureteral stone. No obstructing stones. (4) Anemia: Qualifiers: Anemia type: unspecified type Qualified Code(s): D64.9 - Anemia, unspecified Code(s): D64.9 - Anemia, unspecified Status: Acute Assessment and Plan: 07/15 Hemoglobin dropped to 6.5 probably due to phlebotomies and IV fluid 07/15 transfuse 1 unit packed red cells and follow-up hemoglobin hematocrit 07/16 hemoglobin 8.0, which is close to her baseline since 2018 Subjective Date/time seen: 07/17/19 10:12 Interval history: Admitted July 14 with with generalized pain, more so right scapular to back. 07/16. Complains of some mild epigastric abdominal pain worse with eating. No change in stools. No recent weight loss. Tolerating diet. No complaints. No chest pain. No increased shortness of breath. No swelling. No abnormal bleeding. Review of Systems Review of Systems: All systems reviewed & are unremarkable except as noted in HPI and below Exam Narrative: Exam Narrative: General: No acute distress, well-developed well-nourished, appears stated age HEENT: Mucous membranes are moist Neck: No JVD Respiratory: Clear to auscultation bilaterally, no increased work of breathing Cardiovascular: Regular rate, S1-S2, 2+ pulses bilateral upper and lower extremities Gastrointestinal: Soft, normoactive bowel sounds, mild epigastric tenderness without guarding or rebound Skin: no pallor, non jaundice, normal temperature Extremities: No lower extremity edema, no clubbing, no cyanosis Neurological: Alert and oriented, speech is clear, no facial asymmetry, no gross motor deficits noted on limited exam Psychiatric: Appropriate mood and affect, pleasant and cooperative Objective Data Vital Signs Vital Signs: Vital Signs - 24 hr 07/16/19 12:00 07/16/19 14:00 07/16/19 16:10 Temperature 98.4 F 98.3 F Pulse Rate 80 84 77 Respiratory Rate 16 20 16 Blood Pressure 108/39 L 130/48 L Pulse Oximetry 96 100 98 07/16/19 16:32 07/16/19 17:32 07/16/19 18:00 Temperature 98.2 F 98.2 F Pulse Rate 88 81 85 Respiratory Rate 18 16 14 Blood Pressure 120/46 L 99/44 L Pulse Oximetry 98 98 98 07/16/19 18:32 07/16/19 20:38 07/16/19 22:00 Temperature 98.5 F 98.4 F 99.6 F Pulse Rate 86 88 90 Respiratory Rate 16 20 20 Blood Pressure 129/49 L 123/51 L 132/72 Pulse Oximetry 99 98 98 07/17/19 02:00 07/17/19 06:00 07/17/19 08:17 Temperature 100.4 F H 98.9 F Pulse Rate 88 84 85 Respiratory Rate 20 16 16 Blood Pressure 125/65 127/67 117/61 Pulse Oximetry 97 95 96 Intake/Output Intake/Output: Intake & Output 07/14/19 07/15/19 07/16/19 07/17/19 23:59 23:59 23:59 23:59 Intake Total 1150 2367 400 Output Total 1 800 Balance 1150 2366 -400 Meds/Results Medications: Active Medications Generic Name Dose Route Start Last Admin Trade Name Freq PRN Reason Stop Dose Admin Acetaminophen 500 mg 07/15/19 21:47 07/15/19 22:52 Tylenol Tablet PO 500 mg Q4H PRN Administration Mild Pain (1-3) or Feve
[2019-07-17 14:00] VITALS: BP 120/63; PULSE 86; RESP 16; TEMP 37.1; O2SAT 96
[2019-07-17] MEDS: WARFARIN (*PBKC) 5 MG TABLET PO (18:01)
[2019-07-17 22:00] VITALS: BP 109/52; PULSE 82; RESP 20; TEMP 37.6; O2SAT 94
[2019-07-18] VITALS (7 sets, daily range): BP systolic 100–125; BP diastolic 48–62; PULSE 76–86; RESP 18–20; TEMP 36.6–37.1; O2SAT 96–100
[2019-07-18] MEDS: LEVOTHYROXINE SODIUM 125 MCG TABLET PO (06:36)
[2019-07-18 07:04] LABS: Hematocrit 25.9 % (37.0-47.0); Hemoglobin 7.7 g/dL (12.0-15.0); Mean Corpuscular HGB Conc 29.7 g/dl (32-36); Mean Corpuscular Hemoglobin 20.4 pg (26-34); Mean Corpuscular Volume 68.5 fl (80-100); Mean Platelet Volume 10.3 fl (7.4-10.4); Platelet Count Result 166 k/mm3 (150-375); Red Blood Count 3.78 M/mm3 (4.2-5.4); Red Cell Distribution Width 23.3 % (11.5-14.5); White Blood Count 3.9 K/mm3 (4.5-10.0)
[2019-07-18 07:14] LABS: INR 2.9; Prothrombin Time 29.5 Seconds (11.1-14.7)
[2019-07-18 07:27] LABS: Alanine Aminotransferase 48 U/L (4-35); Albumin Level 2.7 g/dL (3.5-5.1); Alkaline Phosphatase 134 U/L (38-126); Aspartate Amino Transferase 83 U/L (14-36); Bilirubin,Total 0.5 mg/dL (0.2-1.3); Blood Urea Nitrogen 11 mg/dL (7-17); Calcium 7.5 mg/dL (8.4-10.2); Carbon Dioxide 25 mmol/L (22-30); Chloride 107 mmol/L (98-107); Estimated CRCL calculation 94 ml/min; Estimated Glomerular Filt Rate > 60; Glucose 85 mg/dL (65-105); Potassium 4.1 mmol/L (3.4-5.0); Sodium 135 mmol/L (137-145)
[2019-07-18] MEDS: methocarbamoL 500 MG TABLET 1000 MG PO ×3 (08:49→17:13)
[2019-07-18] MEDS: PANTOPRAZOLE 40 MG TABLET PO (08:50)
[2019-07-18] MEDS: POTASSIUM CHLORIDE 10 MEQ TABLET.ER PO (08:50)
[2019-07-18] MEDS: GABAPENTIN 300 MG CAPSULE PO ×3 (08:50→17:13)
[2019-07-18] MEDS: FERROUS SULFATE 324 MG TABLET PO (08:50)
[2019-07-18] MEDS: OMEGA 3 POLYUNSAT FATTY ACIDS 1 GM CAP PO (08:50)
[2019-07-18] MEDS: SPIRONOLACTONE 50 MG TABLET 100 MG PO (08:50)
[2019-07-18] MEDS: DULOXETINE HCL 30 MG CAPSULE.DR PO (09:00)
--- NOTE | 2019-07-18 09:57 | PM.IMPN ---
Progress Note: A&P Assessment and Plan (1) UTI (urinary tract infection): Qualifiers: Urinary tract infection type: acute pyelonephritis Qualified Code(s): N10 - Acute pyelonephritis Code(s): N39.0 - Urinary tract infection, site not specified Status: Acute Assessment and Plan: Probable pyelonephritis. Day 4 Rocephin (2) Kidney stones: Code(s): N20.0 - Calculus of kidney Status: Acute Assessment and Plan: Kidney stones without evidence of ureteral stone. No obstructing stones. No intervention at this time (3) Anemia: Qualifiers: Anemia type: unspecified type Qualified Code(s): D64.9 - Anemia, unspecified Code(s): D64.9 - Anemia, unspecified Status: Acute Assessment and Plan: 07/15 Hemoglobin dropped to 6.5 probably due to phlebotomies and IV fluid 07/15 transfuse 1 unit packed red cells and follow-up hemoglobin hematocrit 07/16 hemoglobin 8.0, which is close to her baseline since 2018 07/17 hemoglobin 7.7 (4) Sepsis: Qualifiers: Sepsis acute organ dysfunction status: without acute organ dysfunction Sepsis type: sepsis due to unspecified organism Qualified Code(s): A41.9 - Sepsis, unspecified organism Code(s): A41.9 - Sepsis, unspecified organism Status: Acute Assessment and Plan: Probably secondary to ascending urinary tract infection/pyelonephritis. COVID-19 negative Subjective Date/time seen: 07/18/19 09:57 Interval history: Admitted July 14 with with generalized pain, more so right scapular to back. 07/17. Complains of some mild epigastric abdominal pain worse with eating. Present for a week or so. Seems a bit better today than yesterday. No change in stools. No recent weight loss. Tolerating diet. No complaints. No chest pain. No increased shortness of breath. No swelling. No abnormal bleeding. Review of Systems Review of Systems: All systems reviewed & are unremarkable except as noted in HPI and below Exam Narrative: Exam Narrative: General: No acute distress, well-developed well-nourished, appears stated age HEENT: Mucous membranes are moist Neck: No JVD Respiratory: Clear to auscultation bilaterally, no increased work of breathing Cardiovascular: Regular rate, S1-S2, 2+ pulses bilateral upper and lower extremities Gastrointestinal: Soft, normoactive bowel sounds, mild epigastric to RUQ tenderness without guarding or rebound Skin: no pallor, non jaundice, normal temperature Extremities: No lower extremity edema, no clubbing, no cyanosis Neurological: Alert and oriented, speech is clear, no facial asymmetry, no gross motor deficits noted on limited exam Psychiatric: Appropriate mood and affect, pleasant and cooperative Objective Data Vital Signs Vital Signs: Vital Signs - 24 hr 07/17/19 14:00 07/17/19 22:00 07/18/19 02:11 Temperature 98.7 F 99.6 F 98.7 F Pulse Rate 86 82 79 Respiratory Rate 16 20 20 Blood Pressure 120/63 109/52 L 113/62 Pulse Oximetry 96 94 96 07/18/19 06:00 Temperature 98.7 F Pulse Rate 76 Respiratory Rate 20 Blood Pressure 115/55 L Pulse Oximetry 96 Intake/Output Intake/Output: Intake & Output 07/15/19 07/16/19 07/17/19 07/18/19 23:59 23:59 23:59 23:59 Intake Total 1150 2367 1630 400 Output Total 1 1400 1000 Balance 1150 2366 230 -600 Meds/Results Medications: Active Medications Generic Name Dose Route Start Last Admin Trade Name Freq PRN Reason Stop Dose Admin Acetaminophen 500 mg 07/15/19 21:47 07/15/19 22:52 Tylenol Tablet PO 500 mg Q4H PRN Administration Mild Pain (1-3) or Fever Diclofenac Sodium 1 applic 07/15/19 21:42 Voltaren 1% Gel TOPICAL Q12HR PRN Pain Duloxetine HCl 30 mg 07/16/19 09:00 07/17/19 08:24 Cymbalta PO 30 mg DAILY JOSSY Administration Ferrous Sulfate 324 mg 07/16/19 08:00 07/18/19 08:50 Ferrous Sulfate PO 324 mg DA
[2019-07-18] MEDS: WARFARIN (*PBKC) 5 MG TABLET PO (17:10)
[2019-07-19 02:01] VITALS: BP 132/61; PULSE 77; RESP 20; TEMP 36.9; O2SAT 100
[2019-07-19] MEDS: SIMETHICONE 80 MG TAB.CHEW PO (02:09)
[2019-07-19] MEDS: PROMETHAZINE HCL 25 MG TABLET PO (02:10)
[2019-07-19] MEDS: TRAMADOL HCL 50 MG TABLET PO (02:10)
[2019-07-19] MEDS: TRAZODONE HCL 50 MG TABLET PO (02:13)
[2019-07-19 06:00] VITALS: BP 117/64; PULSE 71; RESP 20; TEMP 36.7; O2SAT 96
[2019-07-19] MEDS: LEVOTHYROXINE SODIUM 125 MCG TABLET PO (06:04)
[2019-07-19 07:21] LABS: INR 3.4; Prothrombin Time 33.8 Seconds (11.1-14.7)
[2019-07-19] MEDS: OMEGA 3 POLYUNSAT FATTY ACIDS 1 GM CAP PO (08:31)
[2019-07-19] MEDS: POTASSIUM CHLORIDE 10 MEQ TABLET.ER PO (08:31)
[2019-07-19] MEDS: PANTOPRAZOLE 40 MG TABLET PO (08:31)
[2019-07-19] MEDS: methocarbamoL 500 MG TABLET 1000 MG PO (08:31)
[2019-07-19] MEDS: SPIRONOLACTONE 50 MG TABLET 100 MG PO (08:32)
[2019-07-19] MEDS: GABAPENTIN 300 MG CAPSULE PO (08:32)
[2019-07-19] MEDS: FERROUS SULFATE 324 MG TABLET PO (08:32)
[2019-07-19] MEDS: DULOXETINE HCL 30 MG CAPSULE.DR PO (08:32)
[2019-07-19 10:00] VITALS: BP 122/60; PULSE 94; RESP 16; TEMP 36.7; O2SAT 96
--- NOTE | 2019-07-19 10:08 | PM.DS ---
DS: Summary Hospital Course Reason for hospitalization: UTI Hospital Course: Admitted with UTI and sepsis. Responded well to ceftriaxone. Gradually defervesced. Tolerated diet. Status at Discharge Overall status at discharge: patient is progressing back to baseline Time Spent with Patient Time attestation: Total time spent providing and/or coordinating discharge services: Time spent: Greater than 30 minutes Exam Narrative: Exam Narrative: General: No acute distress, well-developed well-nourished, appears stated age HEENT: Mucous membranes are moist Neck: No JVD Respiratory: Clear to auscultation bilaterally, no increased work of breathing Cardiovascular: Regular rate, S1-S2, 2+ pulses bilateral upper and lower extremities Gastrointestinal: Soft, normoactive bowel sounds, mild epigastric to RUQ tenderness without guarding or rebound Skin: no pallor, non jaundice, normal temperature Extremities: No lower extremity edema, no clubbing, no cyanosis Neurological: Alert and oriented, speech is clear, no facial asymmetry, no gross motor deficits noted on limited exam Psychiatric: Appropriate mood and affect, pleasant and cooperative DS: Data Data Completed and Pending Labs on day of discharge: Labs from last 24 hours 07/19/19 05:43 PT 33.8 H INR 3.4 Preliminary micro results at discharge 07/15/19 17:18 Blood Culture - Preliminary Blood Escherichia Coli 07/15/19 17:00 Blood Culture - Preliminary Blood Discharge Plan Discharge Discharging Clinician: Ced Becker Patient Disposition: Home, Self-Care Activity: as tolerated Diet: low sodium Patient Instructions: Antibiotic Form, Warfarin (By mouth) Stand Alone Forms: General Discharge Information Follow-up/Referrals: Temo Rios DO [Primary Care Provider] - Call for Appointment Discharge Medications: New cefdinir 300 mg capsule 300 mg PO Q12H Qty: 20 RF: 0 Continued levothyroxine [Synthroid] 125 mcg tablet 125 mcg PO DAILY RF: 0 promethazine 25 mg tablet 25 mg PO Q6H PRN (Reason: Nausea) RF: 0 amlodipine 5 mg tablet 5 mg PO DAILY RF: 0 potassium chloride 10 mEq tablet extended release 10 meq PO DAILY RF: 0 methocarbamol 500 mg Tablet 1,000 mg PO TID RF: 0 omega [id number]-fish oil [Fish Oil] 1,000 mg (120 mg-180 mg) Capsule 1 cap PO DAILY RF: 0 furosemide 80 mg tablet 80 mg PO DAILY RF: 0 trazodone 50 mg tablet 50 - 150 mg PO HS PRN (Reason: Sleep) RF: 0 pantoprazole 40 mg Tablet,Delayed Release (Dr/Ec) 40 mg PO QAM RF: 0 warfarin 2 mg Tablet 2 mg PO DAILY RF: 0 gabapentin 300 mg capsule 300 mg PO TID RF: 0 lidocaine 5 % ointment 1 applic topical DAILY PRN (Reason: Pain) RF: 0 rizatriptan 10 mg Tablet 10 mg PO DAILY PRN (Reason: Migraine Headache) RF: 0 ferrous sulfate 325 mg (65 mg iron) Tablet 325 mg PO DAILY RF: 0 fluticasone propionate 50 mcg/actuation spray,suspension 1 spray INTRANASAL DAILY PRN (Reason: congestion) RF: 0 duloxetine 30 mg capsule,delayed release(DR/EC) 30 mg PO DAILY RF: 0 spironolactone 100 mg Tablet 100 mg PO DAILY RF: 0 simethicone 80 mg Tablet,Chewable 80 mg PO DAILY PRN (Reason: gas) RF: 0 Discontinued warfarin 5 mg Tablet 5 mg PO DAILY RF: 0 diclofenac sodium 1 % gel 1 % TOPICAL DAILY PRN (Reason: Pain) RF: 0 Other Ambulatory Orders: Basic Metabolic Panel (Routine) Timeframe: 2 Days Location: Determined by Patient Ordered By: Ced Becker Complete Blood Count no Diff (Routine) Timeframe: 2 Days Location: Determined by Patient Ordered By: Ced Becker Prothrombin Time INR (Routine) Timeframe: 2 Days Location: Determined by Patient Ordered By: Ced Becker Date of admission: 07/15/19 20:11 Primary Care Provider: Temo Rios Admitting Provider: Beryl Munoz Discharge Date/Time: 07/19/19 11:40 Atte
== END 2019-07-19 11:40 | disposition home or self-care (01) | DRG 872 ==
LOC: ANHED 19:50 → ANH3MEDSUR 20:13
PROVIDERS: Internal Medicine; Admitting Provider Internal Medicine; Emergency Provider Emergency Medicine; PCP Internal Medicine; Visit Provider Internal Medicine
DX: A41.51 Sepsis due to Escherichia coli [E. coli] (principal); N10 Acute pyelonephritis; N20.0 Calculus of kidney; D64.9 Anemia, unspecified; Z20.828 Contact with and (suspected) exposure to other viral communicable diseases; F41.8 Other specified anxiety disorders; J45.909 Unspecified asthma, uncomplicated; I11.0 Hypertensive heart disease with heart failure; I50.9 Heart failure, unspecified; K74.60 Unspecified cirrhosis of liver; K21.9 Gastro-esophageal reflux disease without esophagitis; K58.9 Irritable bowel syndrome, unspecified; E03.9 Hypothyroidism, unspecified; G47.33 Obstructive sleep apnea (adult) (pediatric); M79.7 Fibromyalgia; M32.9 Systemic lupus erythematosus, unspecified; Z87.828 Personal history of other (healed) physical injury and trauma; Z86.73 Personal history of transient ischemic attack (TIA), and cerebral infarction without residual deficits; Z90.710 Acquired absence of both cervix and uterus; Z90.49 Acquired absence of other specified parts of digestive tract; Z79.01 Long term (current) use of anticoagulants
CPT/HCPCS: 36415; 36430; 71045; 74176; 80053; 81001; 82728; 83605; 84484; 85014; 85018; 85025; 85027; 85055; 85610; 85730; 86140; 86850; 86900; 86901; 86920; 87040; 87077; 87086; 87088; 87186; 87635; 93005; 96361; 96365; 96375; 99285; A9270; J0131; J0696; J7030; J7050; J7120; P9016; U0003

== ENCOUNTER 2020-04-29 02:23 | Emergency (ER) | payer MEDICARE, MEDICAID, SELFPAY ==
[2020-04-29] VITALS (7 sets, daily range): BP systolic 108–139; BP diastolic 42–82; PULSE 82–101; RESP 18–24; TEMP 37.3–39.2; O2SAT 93–96
--- NOTE | ~2020-04-29 | CT_ITS ---
EXAMINATION: CT abdomen pelvis w con DATE: 04/29/2020 03:29 INDICATION: Abdominal pain TECHNIQUE: Computed tomography (CT) of the abdomen and pelvis was performed with 100 cc Omnipaque 350 intravenous contrast. Automated exposure control and iterative reconstruction technique were employe d. Exam dose: 1183.30 mGy-cm total exam DLP. COMPARISON: 07/15/2019 CT abdomen pelvis FINDINGS: The lung bases are clear. Normal heart size. No pericardial or pleural effusion. Surface nodularity of the liver consistent with cirrhosis. TIPS. No hepatic space-occupying mass lesion is evident. Splenomegaly. There is streak artifact from probab le coils at the splenic hilum. Status post cholecystectomy. No bile duct or pancreatic duct dilatation. No pancreatic mass lesion or pancreatic calcification is evident. Normal morphology of the adrenal glands. Bilateral scattered nonobstructing small renal calculi, more numerous on the right. A couple of small left renal cysts are noted. No ureteral calculus or hydroureteronephrosis. There is mild diffuse thickening of the wall of the ur inary bladder. There is minimal ascites. Status post hysterectomy. Normal caliber of the abdominal aorta. No evidence of abdominal aortic aneurysm. Shotty nonenlarged p eriaortic and aortocaval lymph nodes. No intraperitoneal or retroperitoneal or pelvic mass lesion or adenopathy is evident. No bowel obstruction, bowel wall thickening, pneumatosis or intraperitoneal free air. Normal appendix . Small fat-containing umbilical hernia. No suspicious osteolytic or osteoblastic lesions. IMPRESSION: Cirrhosis, splenomegaly, TIPS Mild ascites Bilateral nonobstructive nephrolithiasis Status post cholecystectomy Status post hysterectomy Reviewed, dictated and finalized at [facility] Reviewed, dictated and finalized at [facility]. [employer]
--- NOTE | ~2020-04-29 | XR_ITS ---
XR chest 1V portable DATE: 04/29/2020 02:48 INDICATION: Cough and fever for 3 days. Body aches, weakness. TECHNIQUE: Portable AP chest on April 29, 2020 at 0249 hours COMPARISON: 07/15/2019 portable AP chest FINDINGS: Normal heart size. No pulmonary infiltrate or consolidation, pleural effusion or pulmonary vascular congestion or pneumothorax is detected. Metallic density overlying left upper quadrant of ab domen. IMPRESSION: No active cardiopulmonary disease Reviewed, dictated and finalized at [facility] [employer]
--- NOTE | 2020-04-29 02:29 | ED.SOB ---
HPI - SOB/Dyspnea General Chief Complaint: Shortness of Breath/Dyspnea Stated Complaint: fever Source: RN notes reviewed History of Present Illness HPI Narrative: Patient presents emergency department from home for fever. Patient states she has had a fever for the past 3 days been associated with intermittent coughing and abdominal pain she states that she cannot take Tylenol has not had ibuprofen at home so she does not take any medication for the fevers she denies any sore throat loss of taste or smell, chest pain vomiting diarrhea or any other symptoms. Patient states she does have a history of cirrhosis and is followed by specialist Related Data Home Medications Medication Instructions Recorded Confirmed amlodipine 5 mg tablet 5 mg PO DAILY 01/20/19 07/15/19 potassium chloride 10 mEq 10 meq PO DAILY 01/20/19 07/15/19 tablet,extended release furosemide 80 mg PO DAILY 04/06/19 07/15/19 gabapentin 300 mg PO TID 04/06/19 07/15/19 lidocaine 1 applic TOPICAL DAILY PRN 04/06/19 07/15/19 pantoprazole 40 mg PO QAM 04/06/19 07/15/19 trazodone 50 - 150 mg PO HS PRN 04/06/19 07/15/19 fluticasone propionate 1 spray INTRANASAL DAILY PRN 04/28/19 07/15/19 rizatriptan 10 mg PO DAILY PRN 04/28/19 07/15/19 spironolactone 100 mg PO DAILY 04/28/19 07/15/19 methocarbamol 1,000 mg PO TID 07/15/19 07/15/19 omega [id number]-[id number]-fish oil [Fish Oil] 1 cap PO DAILY 07/15/19 07/15/19 ferrous sulfate 325 mg (65 mg 325 mg PO BID tablet 10/11/19 iron) tablet Allergies Allergy/AdvReac Type Severity Reaction Status Date / Time fentanyl AdvReac Unknown N/V Verified 10/08/19 11:08 Review of Systems Review of Systems: Narrative: Gen.: See HPI Eyes: Denies eye pain or visual change ENT: Denies congestion Respiratory: Denies shortness of breath reports cough CV: Denies chest pain or palpitations GI: Reports abdominal pain denies vomiting diarrhea denies burning, urgency, frequency or hematuria Musculoskeletal: Denies back pain or muscle pain Neuro: Denies numbness, tingling, weakness or focal weakness Skin: Denies rash Except as documented, all other systems reviewed and negative [facility] Past Medical History Medical History Adult hypothyroidism Anxiety Arthritis Asthma Breast cancer screening CHF (congestive heart failure) Normal echocardiogram April 2017 with EF of 60% with mild left atrial enlargement normal diastolic function Chronic pain Previously on methadone but this was discontinued in June of 2018. The patient is requesting narcotic medications while she is inpatient Cirrhosis Status post TIPS MANAGED BY DR. 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 with her last hemoglobin A1c in our system performed August 2018 was 4.7 Essential (primary) hypertension Essential hypertension Fibromyalgia On chronic pain medication GERD (gastroesophageal reflux disease) Gout Headaches due to old head injury Heart murmur Normal echocardiogram April 2017 Hyperlipidemia, unspecified Hypothyroidism IBS (irritable bowel syndrome) Kidney stones Left carpal tunnel syndrome ALAYNA (obstructive sleep apnea) Portal vein thrombosis On chronic anticoagulation with Coumadin SLE (systemic lupus erythematosus related syndrome) Type 2 diabetes mellitus with diabetic polyneuropathy Surgical History Surgical History (Updated 07/16/19 @ 02:06 by Beryl Munoz DO) H/O: hysterectomy In her early to mid 30's due to fibrotic disease without soft finger oophorectomy History of carpal tunnel surgery of right wrist History of laparoscopic cholecystectomy July 2016 Previous section 03/12/1983 once in 1987 S/P TIPS (transjugular intrahepatic portosystemic shunt) Late 2018 Family History Family History (Updated 07/16/19 @ 02:07 by Beryl Munoz
[2020-04-29 03:00] LABS: Basophils Percent Auto 0.4 % (0.2-1.2); Eosinophils Percent Auto 0.2 % (0-4.4); Hematocrit 28.5 % (37.0-47.0); Immature Granulocyte Absolute 0.02 K/mm3 (0.00-0.031); Immature Granulocyte Percent A 0.4 % (0-0.5); Lymphocytes Absolute Auto 0.72 K/mm3 (0.9-3.2); Mean Corpuscular HGB Conc 31.6 g/dl (32-36); Mean Corpuscular Hemoglobin 24.3 pg (26-34); Mean Corpuscular Volume 76.8 fl (80-100); Mean Platelet Volume 9.8 fl (7.4-10.4); Monocytes Absolute Auto 0.7 K/mm3 (0.1-0.6); Monocytes Percent Auto 14.7 % (2.6-8.5); Neutrophils Absolute Auto 3.1 K/mm3 (1.3-6.7); Neutrophils Percent Auto 68.3 % (45.5-73.1); Platelet Count Result 119 k/mm3 (150-375); Red Blood Count 3.71 M/mm3 (4.2-5.4); Red Cell Distribution Width 22.5 % (11.5-14.5); White Blood Count 4.5 K/mm3 (4.5-10.0)
--- NOTE | 2020-04-29 03:06 | ECG_ITS ---
Measurements Intervals [place] Rate: 97 P: 50 ND: 135 QRS: 11 QRSD: 98 T: 30 QT: 324 QTc: 413 Interpretive Statements SINUS RHYTHM NORMAL ECG Electronically Signed On 04-29-2020 7:31:15 CRM ADMINISTRATOR by Faizan Cedillo D.O.
[2020-04-29] MEDS: IBUPROFEN 600 MG TABLET PO (03:11)
[2020-04-29 03:16] LABS: Alanine Aminotransferase 35 U/L (4-35); Albumin Level 2.7 g/dL (3.5-5.1); Alkaline Phosphatase 138 U/L (38-126); Anion Gap 3 mmol/L (8-16); Aspartate Amino Transferase 92 U/L (14-36); Bilirubin,Total 0.8 mg/dL (0.2-1.3); Blood Urea Nitrogen 7 mg/dL (7-17); Carbon Dioxide 26 mmol/L (22-30); Chloride 106 mmol/L (98-107); Estimated CRCL calculation 78 ml/min; Estimated Glomerular Filt Rate > 60; Glucose 118 mg/dL (65-105); Lactic Acid Reflex 1.1 mmol/L (0.7-2.1); Potassium 3.7 mmol/L (3.4-5.0); Sodium 135 mmol/L (137-145)
[2020-04-29 03:32] LABS: Troponin I < 0.012 ng/mL (0.000-0.034)
[2020-04-29 04:24] LABS: Add Urine Microscopic? YES; Appearance Urine Clear (Clear); Bilirubin Urine Negative (Negative); Blood Urine Negative (Negative); Color Urine Yellow (Yellow); Glucose Urine UA Negative (Negative); Ketones Urine Negative (Negative); Leukocyte Esterase Ur 2+ LEU/UL (Negative); Nitrate Urine Negative (Negative); Protein Urine Negative (Negative); Squamous Epithelial Cell Urine Moderate /hpf (Few); WBC Urine 31-50 /hpf
[2020-04-29 04:25] LABS: Specific Grav Ur 1.051 (1.001-1.035)
[2020-04-29] MEDS: SODIUM CHLORIDE 0.9% IV 1,000 ML 999 ML IV CONT (04:51)
[2020-04-29 19:42] LABS: SARS-CoV-2 RNA PCR Negative
== END 2020-04-29 06:43 | disposition home or self-care (01) ==
PROVIDERS: Emergency Provider Emergency Medicine; PCP Internal Medicine
DX: N39.0 Urinary tract infection, site not specified (principal); Z20.822 Contact with and (suspected) exposure to COVID-19; J45.909 Unspecified asthma, uncomplicated; I50.9 Heart failure, unspecified; I11.0 Hypertensive heart disease with heart failure; E11.42 Type 2 diabetes mellitus with diabetic polyneuropathy; K74.60 Unspecified cirrhosis of liver; K21.9 Gastro-esophageal reflux disease without esophagitis; E78.5 Hyperlipidemia, unspecified; E03.9 Hypothyroidism, unspecified; K58.9 Irritable bowel syndrome, unspecified; G47.33 Obstructive sleep apnea (adult) (pediatric); M79.7 Fibromyalgia; M19.90 Unspecified osteoarthritis, unspecified site; M10.9 Gout, unspecified; F41.9 Anxiety disorder, unspecified; F32.9 Major depressive disorder, single episode, unspecified; Z87.442 Personal history of urinary calculi; M32.9 Systemic lupus erythematosus, unspecified; Z86.73 Personal history of transient ischemic attack (TIA), and cerebral infarction without residual deficits
CPT/HCPCS: 36415; 71045; 74177; 80053; 81001; 83605; 84484; 85025; 87040; 87077; 87086; 87088; 87186; 93005; 96365; 99284; A9270; C9803; J0696; J7030; Q9967; U0003; U0005

== ENCOUNTER 2020-08-16 14:15 | Observation (INO) | payer MEDICARE, MEDICAID, SELFPAY ==
--- NOTE | ~2020-08-16 | CT_ITS ---
EXAMINATION: CT abdomen pelvis w con DATE: 08/16/2020 16:47 INDICATION: Severe right flank pain, vomiting. History kidney stones. TECHNIQUE: Computed tomography (CT) of the abdomen and pelvis was performed with 100 cc Omnipaque 350 intravenous contrast. Automated exposure control and iterative reconstruction technique were employe d. Exam dose: 1002.36 mGy-cm total exam DLP. COMPARISON: 04/29/2020, 07/15/2019, 03/14/2018, 09/15/2017 CT abdomen pelvis examinations FINDINGS: The lung bases are clear of consolidation. I recommended. No pericardial or pleural effusio n. Small sliding hiatal hernia. Hepatic surface nodularity consistent with cirrhosis. No focal hepatic space-occupying mass lesion is evident. TIPS. Status post cholecystectomy. No bile duct or pancreatic duct dilatation. Relatively prominent pancreatic tail appears stable dating back to 09/15/2017. No pancreatic mass lesi on or calcification. Normal morphology of the adrenal glands. At least 6 nonobstructing right renal calculi are noted, measuring up to approximately 6 7 7 mm maxim al dimension. There are multiple distal right ureteral calculi with moderately prominent right hydroureteronephrosi s as a result. Two pinpoint lower pole left renal calculi are noted. At least 2 small left renal cysts are noted. No left ureteral calculus or left hydroureteronephrosis. Moderate diffuse thickening of the urinary bladder wall. There is minimal ascites, substantially improved compared to some prior examinations including 018. Normal caliber of the abdominal aorta. No intraperitoneal or retroperitoneal or pelvic mass lesion or adenopathy. Status post hysterectomy. Normal appendix. No bowel obstruction, bowel wall thickening, pneumatosis or intraperitoneal free air . Very small fat-containing umbilical hernia. Included skeletal structures are unremarkable. IMPRESSION: Multiple (approximately 3) distal right u reteral calculi, the largest measuring approximately 3.8 x 7.2 mm; there is associated moderate right hydroureteronephrosis Bilateral nonobstructive nephrolithiasis Cirrhosis, TIPS, borderline splenomegaly Status post cholecystectomy Small sliding hiatal hernia Status post hysterectomy Reviewed, dictated and finalized at [facility] Reviewed, dictated and finalized at [facility].
--- NOTE | ~2020-08-16 | XR_ITS ---
EXAMINATION: XR retrograde pyelo w/stent RT DATE: 08/17/2020 15:54 INDICATION: Right internal ureteral stent placement TECHNIQUE: Fluoroscopic images from a right internal ureteral stent placement are submitted for anastacio lomeli 29 seconds of fluoroscopy time. FINDINGS: There is a right double-J internal ureteral stent projecting in expected position, with proximal [place] loop at the level of the renal pelvis and distal loop in the pelvis within the bladder lumen. There are embolization coils in the left upper abdomen. IMPRESSION: 1. Right internal ureteral stent placement. Please refer to real-time procedural findings for detpushpa ls. Reviewed, dictated and finalized at [facility]. IMPRESSION: 1. Right internal ureteral stent placement. Please refer to real-time procedu ral findings for details.
[2020-08-16 14:24] VITALS: BP 127/51; PULSE 70; RESP 17; TEMP 36.6; O2SAT 100
[2020-08-16] MEDS: MORPHINE SULFATE (*CRX) 2 MG/ML INJ IV PUSH (15:15)
[2020-08-16] MEDS: FAMOTIDINE 20 MG/2 ML VIAL IV PUSH (15:15)
[2020-08-16] MEDS: SODIUM CHLORIDE 0.9% IV 1,000 ML 999 ML IV CONT ×2 (15:18→18:22)
[2020-08-16 16:10] LABS: Basophils Percent Auto 0.6 % (0.2-1.2); Eosinophils Percent Auto 0.3 % (0-4.4); Hematocrit 34.5 % (37.0-47.0); Hemoglobin 10.6 g/dL (12.0-15.0); Immature Granulocyte Absolute 0.01 K/mm3 (0.00-0.031); Immature Granulocyte Percent A 0.3 % (0-0.5); Immature Platelet Fraction Pct 2.7 % (0.9-11.2); Lymphocytes Absolute Auto 0.34 K/mm3 (0.9-3.2); Lymphocytes Percent Auto 9.6 % (18.3-44.2); Mean Corpuscular HGB Conc 30.7 g/dl (32-36); Mean Corpuscular Hemoglobin 24.8 pg (26-34); Mean Corpuscular Volume 80.6 fl (80-100); Mean Platelet Volume 10.6 fl (7.4-10.4); Monocytes Absolute Auto 0.2 K/mm3 (0.1-0.6); Monocytes Percent Auto 6.5 % (2.6-8.5); Neutrophils Absolute Auto 2.9 K/mm3 (1.3-6.7); Neutrophils Percent Auto 82.7 % (45.5-73.1); Platelet Count Result 132 k/mm3 (150-375); Red Blood Count 4.28 M/mm3 (4.2-5.4); Red Cell Distribution Width 19.7 % (11.5-14.5); White Blood Count 3.5 K/mm3 (4.5-10.0)
[2020-08-16 16:19] LABS: Alanine Aminotransferase 36 U/L (4-35); Albumin Level 3.1 g/dL (3.5-5.1); Alkaline Phosphatase 143 U/L (38-126); Anion Gap 6 mmol/L (8-16); Aspartate Amino Transferase 74 U/L (14-36); Bilirubin,Total 1.2 mg/dL (0.2-1.3); Blood Urea Nitrogen 6 mg/dL (7-17); Calcium 8.5 mg/dL (8.4-10.2); Carbon Dioxide 24 mmol/L (22-30); Chloride 112 mmol/L (98-107); Estimated CRCL calculation 106 ml/min; Estimated Glomerular Filt Rate > 60; Glucose 130 mg/dL (65-105); Lipase 180 U/L (23-300); Potassium 3.3 mmol/L (3.4-5.0); Sodium 142 mmol/L (137-145)
[2020-08-16 17:17] LABS: Add Urine Microscopic? YES; Appearance Urine Cloudy (Clear); Bacteria Urine Trace /hpf; Bilirubin Urine Negative (Negative); Blood Urine 3+ (Negative); Color Urine Yellow (Yellow); Glucose Urine UA Negative (Negative); Ketones Urine Negative (Negative); Leukocyte Esterase Ur 3+ LEU/UL (Negative); Mucus Urine Few /lpf; Nitrate Urine Positive (Negative); Protein Urine 1+ mg/dL (Negative); RBC Urine >75 /hpf (0-2); Specific Grav Ur 1.025 (1.001-1.035); Squamous Epithelial Cell Urine Many /hpf (Few); Urobilinogen Urine Negative mg/dL (<2.0); WBC Urine >75 /hpf
[2020-08-16 17:24] VITALS: PULSE 67; RESP 15; O2SAT 100
[2020-08-16 17:25] VITALS: BP 150/59
--- NOTE | 2020-08-16 18:00 | PC.NURSE ---
PA at bedside to discuss results and treatment plan with pt.
[2020-08-16] MEDS: MORPHINE SULFATE (*CRX) 4 MG/ML INJ IV PUSH ×2 (18:22→22:42)
--- NOTE | 2020-08-16 18:59 | PC.NURSE ---
Report given to ABRIL Beltran.
--- NOTE | 2020-08-16 19:15 | ED.GENADULT ---
HPI - General Adult General Chief complaint: Back Pain/Injury Stated complaint: Low back pain, vomiting Time Seen by Provider: 08/16/20 14:49 Source: patient, family and RN notes reviewed Mode of arrival: ambulatory Limitations: no limitations History of Present Illness HPI narrative: Patient is a 54-year-old female who presents to emergency department for evaluation of back pain with nausea and vomiting that began today as an intense pain patient notes that she has oblate been having frequent urinary tract infections also noting that she has a history of kidney stones denies any dysuria change in bowel habits or URI symptoms on arrival appears uncomfortable did take her pain medication with minimal improvement Related Data Home Medications Medication Instructions Recorded Confirmed amlodipine 5 mg tablet 5 mg PO DAILY 01/20/19 08/16/20 potassium chloride 10 mEq 10 meq PO DAILY 01/20/19 08/16/20 tablet,extended release furosemide 80 mg PO DAILY 04/06/19 08/16/20 gabapentin 300 mg PO TID 04/06/19 08/16/20 lidocaine 1 applic TOPICAL DAILY PRN 04/06/19 08/16/20 pantoprazole 40 mg PO QAM 04/06/19 08/16/20 trazodone 50 - 150 mg PO HS PRN 04/06/19 08/16/20 rizatriptan 10 mg PO DAILY PRN 04/28/19 08/16/20 spironolactone 100 mg PO DAILY 04/28/19 08/16/20 methocarbamol 1,000 mg PO TID 07/15/19 08/16/20 omega 7-myf-huu-fish oil [Fish Oil] 1 cap PO DAILY 07/15/19 08/16/20 ferrous sulfate 325 mg (65 mg 325 mg PO BID tablet 10/11/19 08/16/20 iron) tablet Allergies Allergy/AdvReac Type Severity Reaction Status Date / Time fentanyl AdvReac Unknown N/V Verified 08/16/20 14:45 Review of Systems Review of Systems: All systems reviewed & are unremarkable except as noted in HPI and below PMFSH Past Medical History Medical History Adult hypothyroidism Anxiety Arthritis Asthma Breast cancer screening CHF (congestive heart failure) Normal echocardiogram April 2017 with EF of 60% with mild left atrial enlargement normal diastolic function Chronic pain Previously on methadone but this was discontinued in June of 2018. The patient is requesting narcotic medications while she is inpatient Cirrhosis Status post TIPS MANAGED BY DR. Bradford at [facility] Cirrhosis of liver with ascites CVA (cerebral vascular accident) October 2005 Degenerative disc disease Depression Diabetes 1.5, managed as type 2 Managed by diet with her last hemoglobin A1c in our system performed August 2018 was 4.7 Essential (primary) hypertension Essential hypertension Fibromyalgia On chronic pain medication GERD (gastroesophageal reflux disease) Gout Headaches due to old head injury Heart murmur Normal echocardiogram April 2017 Hyperlipidemia, unspecified Hypothyroidism IBS (irritable bowel syndrome) Kidney stones Left carpal tunnel syndrome ALAYNA (obstructive sleep apnea) Portal vein thrombosis On chronic anticoagulation with Coumadin SLE (systemic lupus erythematosus related syndrome) Type 2 diabetes mellitus with diabetic polyneuropathy Surgical History Surgical History H/O: hysterectomy In her early to mid 30's due to fibrotic disease without soft finger oophorectomy History of carpal tunnel surgery of right wrist History of laparoscopic cholecystectomy July 2016 Previous section 03/12/1983 once in 1987 S/P TIPS (transjugular intrahepatic portosystemic shunt) Late 2018 Family History Family History (Updated 07/16/19 @ 02:07 by Beryl Munoz DO) Mother Hypertension Breast cancer Cerebrovascular accident Coronary artery disease Father Cerebrovascular accident Coronary artery disease With [place] at 40 years old Social History Social History Social History: Primary care physician: Dr. Temo Rios Code status: Full code per EMR Smoking sta
[2020-08-16 20:45] VITALS: BP 132/77; PULSE 71; RESP 16; TEMP 36.3; O2SAT 100; BMI 36.7
[2020-08-16] MEDS: LACTATED RINGERS 1,000 ML 80 ML IV CONT (22:42)
[2020-08-17] VITALS (14 sets, daily range): BP systolic 102–147; BP diastolic 42–88; PULSE 60–83; RESP 10–18; TEMP 36.2–37; O2SAT 97–100; BMI 36.7
[2020-08-17] MEDS: FAMOTIDINE 20 MG/2 ML VIAL IV PUSH ×3 (00:23→20:14)
[2020-08-17 06:08] LABS: Basophils Percent Auto 0.6 % (0.2-1.2); Eosinophils Absolute Auto 0.1 K/mm3 (0-0.3); Eosinophils Percent Auto 2.5 % (0-4.4); Hematocrit 33.4 % (37.0-47.0); Hemoglobin 10.3 g/dL (12.0-15.0); Immature Granulocyte Absolute 0.01 K/mm3 (0.00-0.031); Immature Granulocyte Percent A 0.2 % (0-0.5); Lymphocytes Absolute Auto 1.03 K/mm3 (0.9-3.2); Mean Corpuscular HGB Conc 30.8 g/dl (32-36); Mean Corpuscular Hemoglobin 24.9 pg (26-34); Mean Corpuscular Volume 80.7 fl (80-100); Mean Platelet Volume 10.2 fl (7.4-10.4); Monocytes Absolute Auto 0.6 K/mm3 (0.1-0.6); Neutrophils Absolute Auto 3.4 K/mm3 (1.3-6.7); Neutrophils Percent Auto 65.7 % (45.5-73.1); Platelet Count Result 140 k/mm3 (150-375); Red Blood Count 4.14 M/mm3 (4.2-5.4); Red Cell Distribution Width 19.6 % (11.5-14.5); White Blood Count 5.2 K/mm3 (4.5-10.0)
[2020-08-17 06:32] LABS: Anion Gap 4 mmol/L (8-16); Blood Urea Nitrogen 5 mg/dL (7-17); Calcium 8.5 mg/dL (8.4-10.2); Carbon Dioxide 27 mmol/L (22-30); Chloride 112 mmol/L (98-107); Estimated CRCL calculation 108 ml/min; Estimated Glomerular Filt Rate > 60; Glucose 76 mg/dL (65-105); Potassium 3.3 mmol/L (3.4-5.0); Sodium 143 mmol/L (137-145)
--- NOTE | 2020-08-17 06:52 | WPDURCON ---
Assessment and Plan Assessment and plan (1) Urinary tract infection: Code(s): N39.0 - Urinary tract infection, site not specified Status: Acute (2) Bilateral kidney stones: Code(s): N20.0 - Calculus of kidney Status: Acute (3) Right ureteral calculus: Code(s): N20.1 - Calculus of ureter Status: Acute Assessment and Plan: Cystoscopy, right ureteroscopy with stone extraction and possible stent placement. Urology Consult Note HPI Date Seen: 08/17/20 Requesting Physician: Tylor Yun MD Primary Care Provider: Temo Rios DO Consult Narrative Narrative: Liv Delong is a 54 year old female who's known to have small renal calculi but never problems passing stones in the past. She presents to ER with several day history of right flank pain with nausea. She denies fevers chills or gross hematuria. Other than that, she does have a history of recurrent urinary tract infections but denies a history of febrile urinary tract infections. Review of Systems Cardiovascular: Cardiovascular: Denies chest pain, Denies lightheadedness, Denies palpitations and Denies dyspnea Respiratory: Respiratory: Denies dyspnea Gastrointestinal: Gastrointestinal: Denies diarrhea, Denies nausea and Denies vomiting Genitourinary: Genitourinary: Denies hematuria and Denies dysuria Endocrine: Endocrine: Denies palpitations PMFSH Past Medical History Medical History Adult hypothyroidism Anxiety Arthritis Asthma Breast cancer screening CHF (congestive heart failure) Normal echocardiogram April 2017 with EF of 60% with mild left atrial enlargement normal diastolic function Chronic pain Previously on methadone but this was discontinued in June of 2018. The patient is requesting narcotic medications while she is inpatient Cirrhosis Status post TIPS MANAGED BY DR. Bradford at [facility] Cirrhosis of liver with ascites CVA (cerebral vascular accident) October 2005 Degenerative disc disease Depression Diabetes 1.5, managed as type 2 Managed by diet with her last hemoglobin A1c in our system performed August 2018 was 4.7 Essential (primary) hypertension Essential hypertension Fibromyalgia On chronic pain medication GERD (gastroesophageal reflux disease) Gout Headaches due to old head injury Heart murmur Normal echocardiogram April 2017 Hyperlipidemia, unspecified Hypothyroidism IBS (irritable bowel syndrome) Kidney stones Left carpal tunnel syndrome ALAYNA (obstructive sleep apnea) Portal vein thrombosis On chronic anticoagulation with Coumadin SLE (systemic lupus erythematosus related syndrome) Type 2 diabetes mellitus with diabetic polyneuropathy Surgical History Surgical History H/O: hysterectomy In her early to mid 30's due to fibrotic disease without soft finger oophorectomy History of carpal tunnel surgery of right wrist History of laparoscopic cholecystectomy July 2016 Previous section 03/12/1983 once in 1987 S/P TIPS (transjugular intrahepatic portosystemic shunt) Late 2018 Family History Family History Mother Hypertension Breast cancer Cerebrovascular accident Coronary artery disease Father Cerebrovascular accident Coronary artery disease With [place] at 40 years old Social History Social History Social History: Primary care physician: Dr. Temo Rios Code status: Full code per EMR Smoking status: Never smoker Second hand tobacco smoke exposure: No Alcohol intake: never Substance use: never Gender identity (if verbalized by the patient): Female Spiritual care concerns: No Meds Home Medications and Allergies Home Medications Medication Instructions Recorded Confirmed Type amlodipine 5 mg tab
[2020-08-17] MEDS: MORPHINE SULFATE (*CRX) 4 MG/ML INJ IV PUSH ×2 (08:15→20:05)
--- NOTE | 2020-08-17 08:47 | PM.IMHP ---
H&P: HPI History of Present Illness Date/Time: 08/17/20 08:47 Chief Complaint: back pain Narrative: Patient is a 54-year-old female who presents to emergency department for evaluation of right flank pain with nausea and vomiting that started yeserday as an intense pain. Patient notes that she has been having frequent urinary tract infections also noting that she has a history of kidney stone. Patient denies any dysuria change in bowel habits or URI symptoms. no fever, chills.she does reports some burning senstiaon when she pees today. she is noted to be have right hydroureter and hydronephrosis with distal ureteral stones. Review of Systems Review of Systems: Narrative: - CONSTITUTIONAL: Denies weight loss, fever and chills. - HEENT: Denies changes in vision and hearing - RESPIRATORY: Denies SOB and cough. - CV: Denies palpitations and CP. - GI: Dreports abdominal pain, nausea, vomiting and dneies diarrhea. - : reports dysuria and urinary frequency. - MSK: Denies myalgia and joint pain. - SKIN: Denies rash and pruritus. - NEUROLOGICAL: Denies headache and syncope. - PSYCHIATRIC: Denies recent changes in mood. Denies anxiety and depression. All systems reviewed & are unremarkable except as noted in HPI and below PMFSH Past Medical History Medical History Adult hypothyroidism Anxiety Arthritis Asthma Breast cancer screening CHF (congestive heart failure) Normal echocardiogram April 2017 with EF of 60% with mild left atrial enlargement normal diastolic function Chronic pain Previously on methadone but this was discontinued in June of 2018. The patient is requesting narcotic medications while she is inpatient Cirrhosis Status post TIPS MANAGED BY DR. Bradford at [facility] Cirrhosis of liver with ascites CVA (cerebral vascular accident) October 2005 Degenerative disc disease Depression Diabetes 1.5, managed as type 2 Managed by diet with her last hemoglobin A1c in our system performed August 2018 was 4.7 Essential (primary) hypertension Essential hypertension Fibromyalgia On chronic pain medication GERD (gastroesophageal reflux disease) Gout Headaches due to old head injury Heart murmur Normal echocardiogram April 2017 Hyperlipidemia, unspecified Hypothyroidism IBS (irritable bowel syndrome) Kidney stones Left carpal tunnel syndrome ALAYNA (obstructive sleep apnea) Portal vein thrombosis On chronic anticoagulation with Coumadin SLE (systemic lupus erythematosus related syndrome) Type 2 diabetes mellitus with diabetic polyneuropathy Surgical History Surgical History H/O: hysterectomy In her early to mid 30's due to fibrotic disease without soft finger oophorectomy History of carpal tunnel surgery of right wrist History of laparoscopic cholecystectomy July 2016 Previous section 03/12/1983 once in 1987 S/P TIPS (transjugular intrahepatic portosystemic shunt) Late 2018 Family History Family History Mother Hypertension Breast cancer Cerebrovascular accident Coronary artery disease Father Cerebrovascular accident Coronary artery disease With [place] at 40 years old Social History Social History Social History: Primary care physician: Dr. Temo Rios Code status: Full code per EMR Smoking status: Never smoker Second hand tobacco smoke exposure: No Alcohol intake: never Substance use: never Gender identity (if verbalized by the patient): Female Spiritual care concerns: No Meds Home Medications and Allergies Home Medications Medication Instructions Recorded Confirmed Type amlodipine 5 mg tablet 5 mg PO DAILY 01/20/19 08/16/20 History potassium chloride 10 mEq 10 meq PO DAILY 01/20/19 08/16/20 History tablet,extended release
[2020-08-17] MEDS: amLODIPine BESYLATE 5 MG TABLET PO (11:53)
--- NOTE | 2020-08-17 12:42 | WPDANESEPPF ---
Anes - Initial Pre Proc Eval Procedure: Operation Date: 08/17/20 14:15 Proposed Procedures p Cystoscopy, Right Ureteroscopy with Stone Extraction and Possible Stent Placement(Right) - King Serrano MD s Possible Holmium Laser Procedure - King Serrano MD Date/Time: 08/17/20 12:42 Surgeon: Tylor Yun MD Pre Op Diagnosis: Kidney Stone, Urinary Tract Infection Patient Data Age: 54 Gender: F Height: 1.68 m Weight: 103.2 kg Last Vital Signs Temp 36.2 C L 08/17/20 06:00 Pulse 61 08/17/20 06:00 Resp 16 08/17/20 06:00 BP 130/54 L 08/17/20 06:00 Pulse Ox 97 08/17/20 10:21 Allergies Allergy/AdvReac Type Severity Reaction Status Date / Time fentanyl AdvReac Unknown N/V Verified 08/16/20 14:45 Home Medications Medication Instructions Recorded Confirmed Type amlodipine 5 mg tablet 5 mg PO DAILY 01/20/19 08/16/20 History potassium chloride 10 mEq 10 meq PO DAILY 01/20/19 08/16/20 History tablet,extended release furosemide 80 mg PO DAILY 04/06/19 08/16/20 History gabapentin 300 mg PO TID 04/06/19 08/16/20 History lidocaine 1 applic TOPICAL DAILY PRN 04/06/19 08/16/20 History pantoprazole 40 mg PO QAM 04/06/19 08/16/20 History trazodone 50 - 150 mg PO HS PRN 04/06/19 08/16/20 History rizatriptan 10 mg PO DAILY PRN 04/28/19 08/16/20 History spironolactone 100 mg PO DAILY 04/28/19 08/16/20 History methocarbamol 1,000 mg PO TID 07/15/19 08/16/20 History omega 8-mgv-agm-fish oil [Fish Oil] 1 cap PO DAILY 07/15/19 08/16/20 History ferrous sulfate 325 mg (65 mg 325 mg PO BID tablet 10/11/19 08/16/20 History iron) tablet duloxetine 60 mg capsule,delayed See Rx Instructions .ROUTE 04/19/20 08/16/20 Rx release sprinkle .COMPLEX #30 cap ibuprofen [IBU] 600 mg PO Q8-10H PRN #12 tablet 04/29/20 08/16/20 Rx levothyroxine 125 mcg tablet See Rx Instructions .ROUTE 05/26/20 08/16/20 Rx .COMPLEX #30 tablet Laboratory Tests 08/16/20 08/16/20 08/16/20 16:00 16:01 17:00 WBC 3.5 K/mm3 L K/mm3 (4.5-10.0) RBC 4.28 M/mm3 M/mm3 (4.2-5.4) Hgb 10.6 g/dL L g/dL (12.0-15.0) Hct 34.5 % L % (37.0-47.0) MCV 80.6 fl fl (80-100) MCH 24.8 pg L pg (26-34) MCHC 30.7 g/dl L g/dl (32-36) RDW 19.7 % H % (11.5-14.5) Plt Count 132 k/mm3 L k/mm3 (150-375) MPV 10.6 fl H fl (7.4-10.4) Immature Gran % (Auto) 0.3 % % (0-0.5) Neut % (Auto) 82.7 % H % (45.5-73.1) Lymph % (Auto) 9.6 % L % (18.3-44.2) Moore % (Auto) 6.5 % % (2.6-8.5) Eos % (Auto) 0.3 % % (0-4.4) Baso % (Auto) 0.6 % % (0.2-1.2) Lymph # (Auto) 0.34 K/mm3 L K/mm3 (0.9-3.2) Moore # (Auto) 0.2 K/mm3 K/mm3 (0.1-0.6) Eos # (Auto) 0.0 K/mm3 K/mm3 (0-0.3) Baso # (Auto) 0.0 K/mm3 K/mm3 (0.0-0.1) Abs Immat Gran (auto) 0.01 K/mm3 K/mm3 (0.00-0.031) Absolute Neuts (auto) 2.9 K/mm3 K/mm3 (1.3-6.7) Absolute Nucleated RBC 0.0 K/mm3 K/mm3 (0.0-0.012) Nucleated RBC % 0.0 % % (0.0-0.2) % Immature Plt Fraction 2.7 % % (0.9-11.2) Sodium 142 mmol/L mmol/L (137-145) Potassium 3.3 mmol/L L mmol/L (3.4-5.0) Chloride 112 mmol/L H mmol/L (98-107) Carbon Dioxide 24 mmol/L mmol/L (22-30) Anion Gap 6 mmol/L L mmol/L (8-16) BUN 6 mg/dL L mg/dL (7-17) Creatinine 0.60 mg/dL L mg/dL (0.7-1.0) Estim Creat Clear Calc 106 ml/min ml/min Estimated GFR > 60 (59 - ) Glucose 130 mg/dL H mg/dL (65-105) Calcium 8.5 mg/dL mg/dL (8.4-10.2) Total Bilirubin 1.2 mg/dL mg/dL (0.2-1.3) AST 74 U/L H U/L (14-36) ALT 36 U/L H U/L (4-35) Alkaline Phosphatase 143 U/L H U/L (38-126) Total Protein 7.0 g/dL g/dL (6.3-8.2) Albumin
--- NOTE | 2020-08-17 12:50 | PCNSR ---
On 08/17/20, the student, Aminah Sanches, provided care and completed [facility] documentation on this patient. I have reviewed the student's documentation and agree with the findings.
[2020-08-17] MEDS: LACTATED RINGERS 1,000 ML 30 ML IV CONT (13:45)
--- NOTE | 2020-08-17 14:08 | PC.NURSE ---
1300 Patient to surgery for cysto.
--- NOTE | 2020-08-17 15:12 | WPDHPUPDATE1 ---
History and Physical Update Update Date/Time: 08/17/20 15:12 History and Physical has been reviewed, including an updated exam of the patient. There are NO changes in the patient's condition. Risks, benefits, and alternatives have been discussed and questions answered. Patient agrees to proceed with procedure. Plan: Cysto., right ureteroscopy with stone extraction and possible stent placement.
--- NOTE | 2020-08-17 16:17 | SUR.PHASEI ---
Simple mask removed at 1616.
--- NOTE | 2020-08-17 16:31 | P.OP_ITS ---
Procedure Note - Detailed Date of Procedure 08/17/20 Pre-op Diagnosis Right ureteral stones Post-op Diagnosis same Procedure Performed cystoscopy, right ureteroscopy with stone extraction, right retrograde pyelogram and right ureteral stent placement Surgeon King Serrano MD Lime Vat Tender none Anesthesia general Indications right distal ureteral calculi with urinary tract infection Findings 3 small obstructing right distal ureteral stones Description of Procedure patient brought to the operative suite where she has prepped draped in routine sterile fashion while in dorsal lithotomy position. This is done after the uneventful induction of a general anesthetic. Cystoscopy is undertaken with a 19 F rigid cystoscope. Bladder neck and urethra were endoscopically normal. Bladder mucosa is normal without hyperemia. There is no intravesical foreign body or neoplasm. She has a single orthotopic ureteral orifice bilaterally. A 0.035 in glidewire was advanced into the right renal pelvis under fluoroscopy and the distal ureter was dilated with an 8 F 10 F dilator. Ureteroscopy is undertaken with a short tapered semi-rigid ureteral scope. There are 3 small stones, each of which were extracted separately with a 1.9 F disposable escape basket. Performed retrograde pyelogram to outline the collecting system. There is no other obvious filling defects or points of obstruction. 4.8 F variable length stent was positioned with the proximal coil in renal pelvis and distal coil in the bladder. Scopes and wires removed and she was taken recovery room good condition Implants 4.8F right ureteral stent Estimated Blood Loss 0 Urine Output 200 Drains Yes (4.8f right ureteral stent) Packing No Pathology yes Complications No immediate complications Condition stable Disposition PACU
[2020-08-17] MEDS: FUROSEMIDE 80 MG TABLET PO (18:12)
[2020-08-17] MEDS: PANTOPRAZOLE 40 MG TABLET PO (18:12)
[2020-08-17] MEDS: DULoxetine HCL 60 MG CAPSULE.DR BY MOUTH (18:12)
[2020-08-17] MEDS: LEVOTHYROXINE SODIUM 125 MCG TABLET BY MOUTH (18:12)
[2020-08-17] MEDS: SPIRONOLACTONE 50 MG TABLET 100 MG PO (18:13)
[2020-08-17] MEDS: FERROUS SULFATE 324 MG TABLET 325 MG PO (18:13)
[2020-08-17] MEDS: POTASSIUM CHLORIDE 10 MEQ TABLET.ER PO (18:13)
[2020-08-17] MEDS: OMEGA 3 POLYUNSAT FATTY ACIDS 1 GM CAP PO (18:13)
[2020-08-17] MEDS: GABAPENTIN 300 MG CAPSULE PO (18:14)
[2020-08-17] MEDS: methocarbamoL 500 MG TABLET 1000 MG PO (18:15)
[2020-08-17] MEDS: LACTATED RINGERS 1,000 ML 80 ML IV CONT (20:04)
[2020-08-18 03:50] VITALS: BP 121/54; PULSE 84; RESP 18; TEMP 37.1; O2SAT 93
[2020-08-18] MEDS: LEVOTHYROXINE SODIUM 125 MCG TABLET BY MOUTH (06:08)
[2020-08-18 06:50] LABS: Basophils Absolute Auto 0.1 K/mm3 (0.0-0.1); Basophils Percent Auto 0.9 % (0.2-1.2); Eosinophils Absolute Auto 0.2 K/mm3 (0-0.3); Eosinophils Percent Auto 2.8 % (0-4.4); Immature Granulocyte Absolute 0.02 K/mm3 (0.00-0.031); Immature Granulocyte Percent A 0.4 % (0-0.5); Lymphocytes Absolute Auto 0.76 K/mm3 (0.9-3.2); Lymphocytes Percent Auto 14.3 % (18.3-44.2); Mean Corpuscular HGB Conc 30.3 g/dl (32-36); Mean Corpuscular Hemoglobin 24.3 pg (26-34); Mean Corpuscular Volume 80.3 fl (80-100); Mean Platelet Volume 10.8 fl (7.4-10.4); Monocytes Absolute Auto 0.5 K/mm3 (0.1-0.6); Monocytes Percent Auto 9.8 % (2.6-8.5); Neutrophils Absolute Auto 3.8 K/mm3 (1.3-6.7); Neutrophils Percent Auto 71.8 % (45.5-73.1); Platelet Count Result 153 k/mm3 (150-375); Red Blood Count 4.11 M/mm3 (4.2-5.4); Red Cell Distribution Width 19.6 % (11.5-14.5); White Blood Count 5.3 K/mm3 (4.5-10.0)
[2020-08-18 07:02] LABS: Anion Gap 4 mmol/L (8-16); Blood Urea Nitrogen 6 mg/dL (7-17); Carbon Dioxide 29 mmol/L (22-30); Chloride 107 mmol/L (98-107); Estimated CRCL calculation 83 ml/min; Estimated Glomerular Filt Rate > 60; Glucose 116 mg/dL (65-105); Potassium 3.6 mmol/L (3.4-5.0); Sodium 140 mmol/L (137-145)
[2020-08-18 08:00] VITALS: BP 119/57; PULSE 82; RESP 18; TEMP 36.7; O2SAT 94
[2020-08-18] MEDS: LACTATED RINGERS 1,000 ML 80 ML IV CONT (08:58)
[2020-08-18] MEDS: MORPHINE SULFATE (*CRX) 4 MG/ML INJ IV PUSH (09:08)
--- NOTE | 2020-08-18 09:08 | WPDUROPN2 ---
Progress Note: A&P Assessment and Plan (1) Right ureteral calculus: Code(s): N20.1 - Calculus of ureter Status: Acute (2) Urinary tract infection: Code(s): N39.0 - Urinary tract infection, site not specified Status: Acute Assessment and Plan: Patient tolerating her right ureteral stent well. Given the fact she is afebrile and her white count has normalized, I would be comfortable with discharge on a broad-spectrum antibiotic ( i.e. Cipro or Omnicef) despite the fact that her urine culture is not complete. I can follow-up on her culture and modifications and antibiotics next week, once that is complete. She does have right ureteral stent in and will need follow-up in 1-2 weeks for stent removal in our office. Subjective Subjective Date/Time Seen: 08/18/20 09:08 Comfortable, tolerating stent well Review of Systems Cardiovascular: Cardiovascular: Denies chest pain, Denies lightheadedness, Denies palpitations and Denies dyspnea Respiratory: Respiratory: Denies dyspnea Gastrointestinal: Gastrointestinal: Denies diarrhea, Denies nausea and Denies vomiting Genitourinary: Genitourinary: Denies hematuria and Denies dysuria Endocrine: Endocrine: Denies palpitations Exam Const: General: no acute distress Resp: Effort & Inspection: normal respiratory effort GI: Inspection: non-distended GI Palp: No abdominal tenderness and No Guarding due to palpation present (GI) Auscultation: normal bowel sounds Objective Data Vital Signs Vital Signs: Vital Signs - 24 hr 08/17/20 10:21 08/17/20 15:50 08/17/20 16:05 Temperature 97.3 F L Pulse Rate 83 71 Respiratory Rate 12 12 Blood Pressure 137/72 127/66 Pulse Oximetry 97 100 100 08/17/20 16:20 08/17/20 16:35 08/17/20 16:50 Temperature Pulse Rate 67 64 68 Respiratory Rate 10 L 12 14 Blood Pressure 134/87 137/69 146/75 H Pulse Oximetry 99 99 98 08/17/20 17:05 08/17/20 17:20 08/17/20 17:35 Temperature 97.8 F 97.7 F Pulse Rate 82 62 63 Respiratory Rate 12 16 16 Blood Pressure 136/88 135/65 134/74 Pulse Oximetry 98 99 100 08/17/20 18:05 08/17/20 19:05 08/17/20 20:00 Temperature 98.1 F 98.3 F 98.6 F Pulse Rate 60 67 65 Respiratory Rate 16 16 18 Blood Pressure 145/65 H 147/58 H 114/42 L Pulse Oximetry 99 100 100 08/17/20 23:58 08/18/20 03:50 08/18/20 08:00 Temperature 97.1 F L 98.8 F 98.1 F Pulse Rate 70 84 82 Respiratory Rate 18 18 18 Blood Pressure 102/55 L 121/54 L 119/57 L Pulse Oximetry 100 93 94 Intake/Output Intake/Output: Intake & Output 08/15/20 08/16/20 08/17/20 08/18/20 23:59 23:59 23:59 23:59 Intake Total 2049 1889 190 Output Total 1899 3000 Balance 2049 Meds/Results Medications: Active Medications Generic Name Dose Route Start Last Admin Trade Name Freq PRN Reason Stop Dose Admin Amlodipine Besylate 5 mg 08/17/20 09:00 08/17/20 11:53 Amlodipine Besylate 5 Mg Tablet PO 5 mg DAILY JOSSY Administration Duloxetine HCl 60 mg 08/17/20 09:00 08/17/20 18:12 Duloxetine Hcl 60 Mg Capsule.Dr BY MOUTH 60 mg DAILY JOSSY Administration Famotidine 20 mg 08/16/20 21:00 08/17/20 20:14 Famotidine 20 Mg/2 Ml Vial IV PUSH 20 mg Q12HR JOSSY Administration Ferrous Sulfate 325 mg 08/17/20 09:00 08/17/20 18:13 Ferrous Sulfate 324 Mg Tablet PO 325 mg BID JOSSY Administration Fish Oil 1 gm 08/17/20 09:00 08/17/20 18:13 [place] 3 Polyunsat Fatty Acids 1 Gm Cap PO 1 gm DAILY JOSSY Administration Furosemide 80 mg 08/17/20 09:35 08/17/20 18:12 Furosemide 80 Mg Tablet PO 80 mg DAILY JOSSY Administration Gabapentin 300 mg 08/17/20 09:00 08/17/20 18:14 Gabapentin 300 Mg Capsule PO 300 mg TID JOSSY Administration Lactated Ringer's 1,000 mls @ 80 mls/hr 08/16/20 19:20 08/18/20 08:58 Lr - Lactated Ringers Iv IV CONT 80 mls/hr .[id number] JOSSY Administration Ceftriaxone Sodium/Dextrose 1 gm in 50 mls @ 100 mls/hr
[2020-08-18] MEDS: methocarbamoL 500 MG TABLET 1000 MG PO ×3 (09:09→16:47)
[2020-08-18] MEDS: GABAPENTIN 300 MG CAPSULE PO ×3 (09:10→16:46)
[2020-08-18] MEDS: amLODIPine BESYLATE 5 MG TABLET PO (09:10)
[2020-08-18] MEDS: FERROUS SULFATE 324 MG TABLET 325 MG PO ×2 (09:10→16:45)
[2020-08-18] MEDS: FAMOTIDINE 20 MG/2 ML VIAL IV PUSH ×2 (09:10→20:51)
[2020-08-18] MEDS: OMEGA 3 POLYUNSAT FATTY ACIDS 1 GM CAP PO (09:10)
[2020-08-18] MEDS: FUROSEMIDE 80 MG TABLET PO (09:11)
[2020-08-18] MEDS: POTASSIUM CHLORIDE 10 MEQ TABLET.ER PO (09:11)
[2020-08-18] MEDS: DULoxetine HCL 60 MG CAPSULE.DR BY MOUTH (09:11)
[2020-08-18] MEDS: PANTOPRAZOLE 40 MG TABLET PO (09:11)
[2020-08-18] MEDS: SPIRONOLACTONE 50 MG TABLET 100 MG PO (09:11)
[2020-08-18] MEDS: RIZATRIPTAN BENZOATE 10 MG TABLET PO (09:12)
--- NOTE | 2020-08-18 15:25 | PM.DS ---
DS: Admitting Diagnosis Admitting Diagnosis Admitting Diagnosis: uti with hydronephrosis DS: Discharge Diagnosis Discharge Diagnosis (1) Right ureteral calculus: Code(s): N20.1 - Calculus of ureter Status: Acute (2) Bilateral kidney stones: Code(s): N20.0 - Calculus of kidney Status: Acute (3) Urinary tract infection: Code(s): N39.0 - Urinary tract infection, site not specified Status: Acute DS: Summary Hospital Course Hospital Course: # Multiple distal right ureteral calculi with associated moderate right hydroureteronephrosis. # bilateral non obstructive nephrolithiasis. # hypokalemia # UTI: ceftriaxone # hypothyroidism # cirrhosis of liver s/p TIPS in 2017. secnodary to FOX # splenic artery aneurysm prior rupture andhemoperitoneum s/p coil embolization 03/2018 # hx of hepatic encephalopathy # diastolic CHF # hx of CVA ziggy 2005 # type 2 DM # anxiety/depression # GERD # chronic pain syndrome/fibromyalgia; used to be on methadone, discontinued june 2018. # Gout # hyperlipidemia # ALAYNA # portal vein thrombosis with trate metn with coumadin, no longer on coumadin since june 2020 # asthma # degenerative disk disease # IBS # HTN # SLE # Diabetic polyneuropathy urology consulted. patient underwent cystoscopy, right uretereoscopy with stone extraction and stent placement on 08/17/2020. She did well post procedure. urien was infected an hence placed on rocephin. this was switched to omnicef at discharge. Time Spent with Patient Time attestation: Total time spent providing and/or coordinating discharge services: 45 mins Exam Narrative: Exam Narrative: GENERAL: The patient is well developed, not in acute distress HEENT: Nonicteric sclerae, PERRLA, EOMI. Oropharynx clear. Moist mucous membranes. Conjunctivae appear well perfused. CHEST: Chest wall is nontender. HEART: Regular rate and rhythm without murmur, rubs, or gallops LUNGS: Clear to auscultation bilaterally. no respiratory distress ABDOMEN: Soft, positive bowel sounds, non-tender, no organomegaly. mild tender right renal angle SKIN: No rash, no excessive bruising, petechiae, or purpura. NEUROLOGIC: Cranial nerves II-XII intact, alert and oriented x 3, no gross motor deficits EXTREMITIES: no edema, cyanosis or clubbing DS: Data Data Completed and Pending Completed studies during hospitalization: EXAMINATION: CT abdomen pelvis w con DATE: 08/16/2020 16:47 INDICATION: Severe right flank pain, vomiting. History kidney stones. TECHNIQUE: Computed tomography (CT) of the abdomen and pelvis was performed with 100 cc Omnipaque 350 intravenous contrast. Automated exposure control and iterative reconstruction technique were employed. Exam dose: 1002.36 mGy-cm total exam DLP. COMPARISON: 04/29/2020, 07/15/2019, 03/14/2018, 09/15/2017 CT abdomen pelvis examinations FINDINGS: The lung bases are clear of consolidation. I recommended. No pericardial or pleural effusion. Small sliding hiatal hernia. Hepatic surface nodularity consistent with cirrhosis. No focal hepatic space-occupying mass lesion is evident. TIPS. Status post cholecystectomy. No bile duct or pancreatic duct dilatation. Relatively prominent pancreatic tail appears stable dating back to 09/15/2017. No pancreatic mass lesion or calcification. Normal morphology of the adrenal glands. At least 6 nonobstructing right renal calculi are noted, measuring up to approximately 6 7 7 mm maximal dimension. There are multiple distal right ureteral calculi with moderately prominent right hydroureteronephrosis as a result. Two pinpoint lower pole left renal calculi are noted. At least 2 small left renal cysts are noted. No left ureteral calculus or left hydroureteronephrosis. Moderate diffuse thickening of the urinary bladder wall. There is minimal ascites, substantially improved compared to some prior examinations including 09/15/2017. Normal caliber of the abdominal aorta. No intraperitoneal or retroperit
--- NOTE | 2020-08-18 17:09 | PM.IMPN ---
Progress Note: A&P Assessment and Plan (1) Right ureteral calculus: Code(s): N20.1 - Calculus of ureter Status: Acute (2) Bilateral kidney stones: Code(s): N20.0 - Calculus of kidney Status: Acute (3) Urinary tract infection: Code(s): N39.0 - Urinary tract infection, site not specified Status: Acute Additional Plan # Multiple distal right ureteral calculi with associated moderate right hydroureteronephrosis. # bilateral non obstructive nephrolithiasis. # hypokalemia # UTI: ceftriaxone # hypothyroidism # cirrhosis of liver s/p TIPS in 2018. secnodary to FOX # splenic artery aneurysm prior rupture andhemoperitoneum s/p coil embolization 03/2018 # hx of hepatic encephalopathy # diastolic CHF # hx of CVA ziggy 2005 # type 2 DM # anxiety/depression # GERD # chronic pain syndrome/fibromyalgia; used to be on methadone, discontinued june 2018. # Gout # hyperlipidemia # ALAYNA # portal vein thrombosis with trate metn with coumadin, no longer on coumadin since june 2020 # asthma # degenerative disk disease # IBS # HTN # SLE # Diabetic polyneuropathy urology consulted. cystoscopy, right uretereoscopy with stone extraction and possible stent placement planned per urology. Ceftriaxone. follow urine cutlure resume home medications. 08/18: confsued per nrusing staff. check ammonia level. will restart her homoe meds rifaximin and lactulose. continue to moniotr. labs in am. Subjective Date/time seen: 08/18/20 17:09 Interval history: pateint doign okay but nurse reports some confusion. no fever, chlls. she did not eat much ths aftenroon. discharge was held Review of Systems Review of Systems: All systems reviewed & are unremarkable except as noted in HPI and below Exam Narrative: Exam Narrative: GENERAL: The patient is well developed, not in acute distress HEENT: Nonicteric sclerae, PERRLA, EOMI. Oropharynx clear. Moist mucous membranes. Conjunctivae appear well perfused. CHEST: Chest wall is nontender. HEART: Regular rate and rhythm without murmur, rubs, or gallops LUNGS: Clear to auscultation bilaterally. no respiratory distress ABDOMEN: Soft, positive bowel sounds, non-tender, no organomegaly. mild tender right renal angle SKIN: No rash, no excessive bruising, petechiae, or purpura. NEUROLOGIC: Cranial nerves II-XII intact, alert and oriented x 3, no gross motor deficits, mildly confused EXTREMITIES: no edema, cyanosis or clubbing Objective Data Vital Signs Vital Signs: Vital Signs - 24 hr 08/17/20 17:20 08/17/20 17:35 08/17/20 18:05 Temperature 97.8 F 97.7 F 98.1 F Pulse Rate 62 63 60 Respiratory Rate 16 16 16 Blood Pressure 135/65 134/74 145/65 H Pulse Oximetry 99 100 99 08/17/20 19:05 08/17/20 20:00 08/17/20 23:58 Temperature 98.3 F 98.6 F 97.1 F L Pulse Rate 67 65 70 Respiratory Rate 16 18 18 Blood Pressure 147/58 H 114/42 L 102/55 L Pulse Oximetry 100 100 100 08/18/20 03:50 08/18/20 08:00 Temperature 98.8 F 98.1 F Pulse Rate 84 82 Respiratory Rate 18 18 Blood Pressure 121/54 L 119/57 L Pulse Oximetry 93 94 Intake/Output Intake/Output: Intake & Output 08/15/20 08/16/20 08/17/20 08/18/20 23:59 23:59 23:59 23:59 Intake Total 2049 1939 2380 Output Total 1899 3000 Balance 2049 40 -620 Meds/Results Medications: Active Medications Generic Name Dose Route Start Last Admin Trade Name Freq PRN Reason Stop Dose Admin Amlodipine Besylate 5 mg 08/17/20 09:00 08/18/20 09:10 Amlodipine Besylate 5 Mg Tablet PO 5 mg DAILY JOSSY Administration Duloxetine HCl 60 mg 08/17/20 09:00 08/18/20 09:11 Duloxetine Hcl 60 Mg Capsule.Dr BY MOUTH 60 mg DAILY JOSSY Administration Famotidine 20 mg 08/16/20 21:00 08/18/20 09:10 Famotidine 20 Mg/2 Ml Vial IV PUSH 20 mg Q12HR JOSSY Administration Ferrous Sulfate 325 mg 08/17/20 09:00 08/18/20 16:45 Ferrous Sulfate 324 Mg Tablet PO 325 mg BID JOSSY Administration Fish Oil 1 gm
[2020-08-18] MEDS: LACTULOSE 20 GM/30 ML UDC PO (17:56)
[2020-08-18] MEDS: rifAXIMin 550 MG TABLET PO (17:59)
[2020-08-18 18:35] LABS: Ammonia 29 umol/L (9-30)
[2020-08-18 22:00] VITALS: BP 128/68; PULSE 92; RESP 20; TEMP 37.1; O2SAT 94
[2020-08-19 05:36] VITALS: BP 136/62; PULSE 85; RESP 20; TEMP 37.2; O2SAT 95
[2020-08-19] MEDS: LEVOTHYROXINE SODIUM 125 MCG TABLET BY MOUTH (06:18)
[2020-08-19] MEDS: FERROUS SULFATE 324 MG TABLET 325 MG PO (09:20)
[2020-08-19] MEDS: LACTULOSE 20 GM/30 ML UDC PO (09:20)
[2020-08-19] MEDS: methocarbamoL 500 MG TABLET 1000 MG PO (09:20)
[2020-08-19] MEDS: GABAPENTIN 300 MG CAPSULE PO (09:20)
[2020-08-19] MEDS: amLODIPine BESYLATE 5 MG TABLET PO (09:21)
[2020-08-19] MEDS: rifAXIMin 550 MG TABLET PO (09:21)
[2020-08-19] MEDS: PANTOPRAZOLE 40 MG TABLET PO (09:21)
[2020-08-19] MEDS: OMEGA 3 POLYUNSAT FATTY ACIDS 1 GM CAP PO (09:21)
[2020-08-19] MEDS: SPIRONOLACTONE 50 MG TABLET 100 MG PO (09:21)
[2020-08-19] MEDS: FUROSEMIDE 80 MG TABLET PO (09:21)
[2020-08-19] MEDS: DULoxetine HCL 60 MG CAPSULE.DR BY MOUTH (09:21)
[2020-08-19] MEDS: POTASSIUM CHLORIDE 10 MEQ TABLET.ER PO (09:21)
== END 2020-08-19 14:10 | disposition home or self-care (01) ==
LOC: ANHED 19:19 → ANH3MEDSUR 19:45
PROVIDERS: Emergency Medicine Emergency Medical Services; Urology; Admitting Provider Internal Medicine; Emergency Provider Emergency Medicine; PCP Internal Medicine; Visit Provider Internal Medicine
PROC: (CPT 52352; principal; 2020-08-17 14:15)
DX: N13.2 Hydronephrosis with renal and ureteral calculous obstruction (principal); N39.0 Urinary tract infection, site not specified; K74.60 Unspecified cirrhosis of liver; I11.0 Hypertensive heart disease with heart failure; I50.9 Heart failure, unspecified; I81 Portal vein thrombosis; J45.909 Unspecified asthma, uncomplicated; E78.5 Hyperlipidemia, unspecified; E13.42 Other specified diabetes mellitus with diabetic polyneuropathy; E03.9 Hypothyroidism, unspecified; K58.9 Irritable bowel syndrome, unspecified; K21.9 Gastro-esophageal reflux disease without esophagitis; M32.9 Systemic lupus erythematosus, unspecified; M79.7 Fibromyalgia; M19.90 Unspecified osteoarthritis, unspecified site; M10.9 Gout, unspecified; G56.02 Carpal tunnel syndrome, left upper limb; G89.29 Other chronic pain; G47.33 Obstructive sleep apnea (adult) (pediatric); R41.0 Disorientation, unspecified; R51.9 Headache, unspecified; R53.1 Weakness; F32.9 Major depressive disorder, single episode, unspecified; F41.9 Anxiety disorder, unspecified; Z87.442 Personal history of urinary calculi; Z87.828 Personal history of other (healed) physical injury and trauma; Z90.49 Acquired absence of other specified parts of digestive tract; Z90.710 Acquired absence of both cervix and uterus; Z86.73 Personal history of transient ischemic attack (TIA), and cerebral infarction without residual deficits
CPT/HCPCS: 52352; 52332; 36415; 74177; 74420; 80048; 80053; 81001; 82140; 82365; 83690; 85025; 85055; 87086; 87147; 87181; 87186; 88300; 96361; 96365; 96366; 96375; 96376; 99285; A9270; C1769; C1887; C2617; G0378; J0696; J2250; J2270; J2405; J2704; J3010; J3480; J7030; J7120; Q9966; Q9967

== ENCOUNTER 2020-11-26 06:14 | Emergency (ER) | payer MEDICARE, MEDICAID, SELFPAY ==
--- NOTE | ~2020-11-26 | XR_ITS ---
EXAMINATION: XR chest 2V EXAM DATE: 11/26/2020 07:43 INDICATION: Left-sided chest pain, cough. TECHNIQUE: Frontal and lateral projections of the chest obtained and reviewed. Comparison is made to prior examination from 04/29/2020. FINDINGS: The lungs are clear. There are no pleural effusions. The cardiomediastinal silhouette is within normal limits. There is no pneumothorax suspected. Left upper quadrant density probably sple mikey artery coil or embolic material. IMPRESSION: No acute cardiopulmonary findings. Reviewed, dictated and finalized at location A.
[2020-11-26 06:19] VITALS: BP 128/54; PULSE 84; RESP 18; TEMP 38.4; O2SAT 96
[2020-11-26 06:37] VITALS: O2SAT 96
--- NOTE | 2020-11-26 07:15 | ECG_ITS ---
Measurements Intervals [place] Rate: 85 P: 47 PA: 144 QRS: 11 QRSD: 99 T: 14 QT: 356 QTc: 425 Interpretive Statements SINUS RHYTHM BASELINE ARTIFACT- I, III, V1 NORMAL ECG Electronically Signed On 11-26-2020 8:02:40 CDT by Faizan Cedillo D.O.
--- NOTE | 2020-11-26 07:20 | ED.GENADULT ---
HPI - General Adult General Chief complaint: Unspecified Stated complaint: JOINT PAIN Time Seen by Provider: 11/26/20 07:05 History of Present Illness HPI narrative: Patient presents with intermittent fevers over the past 2 weeks associated with diffuse joint pain. Symptoms appear to be worsening last night sweats upper abdominal pain as well as left-sided chest pain. Left-sided chest pain is achy, constant, worse with eating or drinking. Her abdominal pain is also exacerbated by eating or drinking she denies any vomiting or diarrhea. she has urinary urgency as well as increased urinary frequency but denies any dysuria. Related Data Home Medications Medication Instructions Recorded Confirmed amlodipine 5 mg tablet 5 mg PO DAILY 01/20/19 08/16/20 potassium chloride 10 mEq 10 meq PO DAILY 01/20/19 08/16/20 tablet,extended release furosemide 80 mg PO DAILY 04/06/19 08/16/20 gabapentin 300 mg PO TID 04/06/19 08/16/20 lidocaine 1 applic TOPICAL DAILY PRN 04/06/19 08/16/20 pantoprazole 40 mg PO QAM 04/06/19 08/16/20 trazodone 50 - 150 mg PO HS PRN 04/06/19 08/16/20 rizatriptan 10 mg PO DAILY PRN 04/28/19 08/16/20 spironolactone 100 mg PO DAILY 04/28/19 08/16/20 methocarbamol 1,000 mg PO TID 07/15/19 08/16/20 omega 4-hwg-iyj-fish oil [Fish Oil] 1 cap PO DAILY 07/15/19 08/16/20 ferrous sulfate 325 mg (65 mg 325 mg PO BID tablet 10/11/19 08/16/20 iron) tablet Xifaxan 550 mg PO DAILY 08/19/20 08/19/20 albuterol 180 mcg INHALATION TID PRN 08/19/20 08/19/20 lactulose 30 ml PO DAILY 08/19/20 08/19/20 naltrexone 3 mg PO DAILY 08/19/20 08/19/20 Allergies Allergy/AdvReac Type Severity Reaction Status Date / Time fentanyl AdvReac Unknown N/V Verified 11/26/20 06:37 Review of Systems Review of Systems: CONSTITUTIONAL: Denies fever, chills, or sweats. EYES: Denies visual changes, redness, or discharge. ENT: Denies rhinorrhea, congestion, sore throat, or otalgia. CARDIOVASCULAR: Denies palpitations, or edema. RESPIRATORY: Reports cough and shortness of breath GASTROINTESTINAL: Denies vomiting, or diarrhea. GENITOURINARY: Denies dysuria or hematuria. SKIN: Denies rash or itching. MUSCULOSKELETAL: Denies back pain, joint pain, or myalgia. NEUROLOGIC: Denies headache, numbness, dizziness, or weakness. PSYCHIATRIC: Denies anxiety or depression. All systems reviewed & are unremarkable except as noted in HPI and below PMFSH Past Medical History Medical History Adult hypothyroidism Anxiety Arthritis Asthma Breast cancer screening CHF (congestive heart failure) Normal echocardiogram April 2017 with EF of 60% with mild left atrial enlargement normal diastolic function Chronic pain Previously on methadone but this was discontinued in June of 2018. The patient is requesting narcotic medications while she is inpatient Cirrhosis Status post TIPS MANAGED BY DR. 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 with her last hemoglobin A1c in our system performed August 2018 was 4.7 Essential (primary) hypertension Essential hypertension Fibromyalgia On chronic pain medication GERD (gastroesophageal reflux disease) Gout Headaches due to old head injury Heart murmur Normal echocardiogram April 2017 Hyperlipidemia, unspecified Hypothyroidism IBS (irritable bowel syndrome) Kidney stones Left carpal tunnel syndrome ALAYNA (obstructive sleep apnea) Portal vein thrombosis On chronic anticoagulation with Coumadin SLE (systemic lupus erythematosus related syndrome) Type 2 diabetes mellitus with diabetic polyneuropathy Surgical History Surgical History H/O: hysterectomy In her early to mid 30's due to fibrotic disease without soft finger oophorectomy History of carpal tunnel surgery of right wrist Histo
[2020-11-26] MEDS: SODIUM CHLORIDE 0.9% IV 1,000 ML 999 ML IV CONT (07:59)
[2020-11-26 08:05] LABS: Basophils Percent Auto 0.3 % (0.2-1.2); Eosinophils Absolute Auto 0.1 K/mm3 (0-0.3); Eosinophils Percent Auto 0.9 % (0-4.4); Hematocrit 30.2 % (37.0-47.0); Hemoglobin 9.9 g/dL (12.0-15.0); Immature Granulocyte Absolute 0.04 K/mm3 (0.00-0.031); Immature Granulocyte Percent A 0.6 % (0-0.5); Lymphocytes Absolute Auto 0.84 K/mm3 (0.9-3.2); Lymphocytes Percent Auto 12.2 % (18.3-44.2); Mean Corpuscular HGB Conc 32.8 g/dl (32-36); Mean Corpuscular Hemoglobin 27.3 pg (26-34); Mean Corpuscular Volume 83.2 fl (80-100); Mean Platelet Volume 10.3 fl (7.4-10.4); Monocytes Absolute Auto 0.9 K/mm3 (0.1-0.6); Monocytes Percent Auto 12.9 % (2.6-8.5); Neutrophils Percent Auto 73.1 % (45.5-73.1); Platelet Count Result 143 k/mm3 (150-375); Red Blood Count 3.63 M/mm3 (4.2-5.4); Red Cell Distribution Width 18.8 % (11.5-14.5); White Blood Count 6.9 K/mm3 (4.5-10.0)
[2020-11-26 08:15] LABS: Alanine Aminotransferase 32 U/L (4-35); Alkaline Phosphatase 133 U/L (38-126); Anion Gap -1 mmol/L (8-16); Aspartate Amino Transferase 69 U/L (14-36); Bilirubin,Total 1.5 mg/dL (0.2-1.3); Blood Urea Nitrogen 7 mg/dL (7-17); Calcium 8.5 mg/dL (8.4-10.2); Carbon Dioxide 27 mmol/L (22-30); Chloride 105 mmol/L (98-107); Estimated CRCL calculation 93 ml/min; Estimated Glomerular Filt Rate > 60; Glucose 102 mg/dL (65-110); Lipase 74 U/L (23-300); Potassium 4.1 mmol/L (3.4-5.0); Sodium 131 mmol/L (137-145)
[2020-11-26 08:17] LABS: INR 1.3; Prothrombin Time 15.5 Seconds (11.1-14.7)
[2020-11-26 08:34] LABS: Add Urine Microscopic? YES; Appearance Urine Clear (Clear); Bacteria Urine Trace /hpf; Bilirubin Urine Negative (Negative); Blood Urine 1+ (Negative); Color Urine Yellow (Yellow); Glucose Urine UA Negative (Negative); Ketones Urine Negative (Negative); Leukocyte Esterase Ur 2+ LEU/UL (Negative); Mucus Urine Rare /lpf; Nitrate Urine Negative (Negative); Protein Urine 1+ mg/dL (Negative); Specific Grav Ur 1.009 (1.001-1.035); Squamous Epithelial Cell Urine Many /hpf (Few); Urobilinogen Urine Negative mg/dL (<2.0); WBC Urine >75 /hpf
[2020-11-26 09:26] VITALS: BP 107/53; PULSE 74; RESP 17; O2SAT 98
== END 2020-11-26 09:34 | disposition home or self-care (01) ==
PROVIDERS: Emergency Provider Emergency Medicine; PCP Student in an Organized Health Care Education/Training Program
DX: N39.0 Urinary tract infection, site not specified (principal); R50.9 Fever, unspecified; E03.9 Hypothyroidism, unspecified; F41.9 Anxiety disorder, unspecified; I50.9 Heart failure, unspecified; G89.29 Other chronic pain; F32.9 Major depressive disorder, single episode, unspecified; E13.9 Other specified diabetes mellitus without complications; I11.0 Hypertensive heart disease with heart failure; M79.7 Fibromyalgia; G47.33 Obstructive sleep apnea (adult) (pediatric); E78.5 Hyperlipidemia, unspecified; Z86.73 Personal history of transient ischemic attack (TIA), and cerebral infarction without residual deficits; Z87.09 Personal history of other diseases of the respiratory system; Z87.19 Personal history of other diseases of the digestive system; Z87.442 Personal history of urinary calculi
CPT/HCPCS: 36415; 71046; 80053; 81001; 83690; 85025; 85610; 85730; 87077; 87086; 87186; 93005; 96361; 96365; 99284; J0131; J7030

== ENCOUNTER 2021-04-03 16:42 | Emergency (ER) | payer MEDICARE, MEDICAID, SELFPAY ==
--- NOTE | ~2021-04-03 | XR_ITS ---
EXAMINATION: XR chest 2V EXAM DATE: 04/03/2021 17:20 INDICATION: Nausea,Mid To Lt Cp Into Neck/Back, 2 Days,Hx Copd,Chf,Diabe. TECHNIQUE: Frontal and lateral projections of the chest obtained and reviewed. Comparison is made to prior examination from 11/26/2020. FINDINGS: The lungs are clear. There are no pleural effusions. The cardiomediastinal silhouette is within normal limits. There is no pneumothorax suspected. The bones and soft tissues are unremarkab le. Splenic arterial aneurysm coils. There is no significant interval change. IMPRESSION: No acute cardiopulmonary findings. Reviewed, dictated and finalized at location [facility]
--- NOTE | 2021-04-03 16:44 | ECG_ITS ---
Measurements Intervals [place] Rate: 78 P: 32 NH: 112 QRS: 4 QRSD: 101 T: 21 QT: 405 QTc: 461 Interpretive Statements SINUS RHYTHM WITH SHORT NH INTERVAL VOLTAGE CRITERIA FOR LVH CONSIDER INFERIOR INFARCT, AGE INDETERMINATE BASELINE WANDER- AVL, AVF ABNORMAL ECG Electronically Signed On 04-03-2021 20:22:53 CUSTOMER SERVICE ADMINISTRATOR by Faizan Cedillo D.O.
[2021-04-03 16:47] VITALS: BP 149/55; PULSE 76; RESP 18; TEMP 37.3; O2SAT 100
[2021-04-03 19:44] VITALS: BP 149/70; PULSE 69; PULSE 71; RESP 14; O2SAT 100
[2021-04-03 20:02] VITALS: BP 137/55; PULSE 70; RESP 14; O2SAT 100
[2021-04-03 20:08] LABS: Basophils Percent Auto 0.8 % (0.2-1.2); Eosinophils Absolute Auto 0.2 K/mm3 (0-0.3); Eosinophils Percent Auto 4.6 % (0-4.4); Hematocrit 34.5 % (37.0-47.0); Hemoglobin 10.8 g/dL (12.0-15.0); Immature Granulocyte Absolute 0.01 K/mm3 (0.00-0.031); Immature Granulocyte Percent A 0.2 % (0-0.5); Lymphocytes Percent Auto 29.5 % (18.3-44.2); Mean Corpuscular HGB Conc 31.3 g/dl (32-36); Mean Corpuscular Volume 82.9 fl (80-100); Mean Platelet Volume 9.6 fl (7.4-10.4); Monocytes Absolute Auto 0.5 K/mm3 (0.1-0.6); Monocytes Percent Auto 10.3 % (2.6-8.5); Neutrophils Absolute Auto 2.6 K/mm3 (1.3-6.7); Neutrophils Percent Auto 54.6 % (45.5-73.1); Platelet Count Result 125 k/mm3 (150-375); Red Blood Count 4.16 M/mm3 (4.2-5.4); Red Cell Distribution Width 18.7 % (11.5-14.5); White Blood Count 4.8 K/mm3 (4.5-10.0)
[2021-04-03 20:17] LABS: Alanine Aminotransferase 35 U/L (4-35); Albumin Level 3.2 g/dL (3.5-5.1); Alkaline Phosphatase 146 U/L (38-126); Anion Gap 3 mmol/L (8-16); Aspartate Amino Transferase 72 U/L (14-36); Bilirubin,Total 1.3 mg/dL (0.2-1.3); Blood Urea Nitrogen 9 mg/dL (7-17); Calcium 8.6 mg/dL (8.4-10.2); Carbon Dioxide 23 mmol/L (22-30); Chloride 113 mmol/L (98-107); Estimated CRCL calculation 92 ml/min; Estimated Glomerular Filt Rate > 60; Glucose 86 mg/dL (65-110); INR 1.3; Lipase 111 U/L (23-300); Potassium 3.3 mmol/L (3.4-5.0); Prothrombin Time 16.2 Seconds (11.1-14.7); Sodium 139 mmol/L (137-145)
[2021-04-03 20:18] LABS: Partial Thromboplastin Time 40.5 SECONDS (22.3-36.8)
[2021-04-03] MEDS: KETOROLAC 30 MG/ML VIAL (*BKC) IV PUSH (20:27)
[2021-04-03 20:29] LABS: Troponin I < 0.012 ng/mL (0.000-0.034)
[2021-04-03 20:31] VITALS: BP 166/74; PULSE 67; RESP 12; O2SAT 99
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
[2021-04-03 21:28] VITALS: BP 150/64; PULSE 68; RESP 14; O2SAT 100
== END 2021-04-03 21:29 | disposition home or self-care (01) ==
PROVIDERS: Emergency Provider Emergency Medicine; PCP Student in an Organized Health Care Education/Training Program
DX: S16.1XXA Strain of muscle, fascia and tendon at neck level, initial encounter (principal); K30 Functional dyspepsia; E03.9 Hypothyroidism, unspecified; F41.9 Anxiety disorder, unspecified; M19.90 Unspecified osteoarthritis, unspecified site; J45.909 Unspecified asthma, uncomplicated; I11.0 Hypertensive heart disease with heart failure; I50.9 Heart failure, unspecified; F32.9 Major depressive disorder, single episode, unspecified; K21.9 Gastro-esophageal reflux disease without esophagitis; E11.9 Type 2 diabetes mellitus without complications; Y04.0XXA Assault by unarmed brawl or fight, initial encounter
CPT/HCPCS: 36415; 71046; 80053; 83690; 84484; 85025; 85610; 85730; 93005; 96374; 99284; J1885

== ENCOUNTER 2021-06-05 11:36 | Emergency (ER) | payer MEDICARE, MEDICAID, SELFPAY ==
--- NOTE | ~2021-06-05 | CT_ITS ---
EXAMINATION: CT abdomen pelvis wo con DATE: 06/05/2021 13:55 INDICATION: Flank pain, history of renal stones. TECHNIQUE: Computed tomography (CT) of the abdomen and pelvis was performed without intravenous contr ast. Automated exposure control and iterative reconstruction technique were employed. The dose-length product was 1228.59 mGy-cm. COMPARISON: 08/16/2020. FINDINGS: Lower thorax: Mitral annulus calcification. Liver: TIPS in place, patency not assessed. Nodular contour. Biliary/Gallbladder: No bile duct dilation. Gallbladder is absent. Spleen: No mass. Splenomegaly Pancreas: No mass or duct dilation. Adrenals:No mass. Kidneys: Multiple right nephroliths seen in the prior are no longer visualized. A punctate right infe rior pole calculus remains. Punctate left midpole calculus, with 2 additional 2-3 mm inferior pole ca lculi, stable. Stable moderate right pelvic calyceal and ureteral dilation, with minimal inflammatory change. GI tract: No dilation or wall thickening. Normal appendix. Mesentery/Peritoneum: Small volume ascites. Left upper quadrant embolization coils. Retroperitoneum: No mass. Pelvis: Urinary bladder is decompressed. 4 mm right UVJ stone. Status post hysterectomy. Bones/Soft Tissues: Mild body wall edema. No acute osseous finding. Additional Findings: None. IMPRESSION: 4 mm right UVJ stone causing mild right obstructive uropathy, likely superimposed on chronic moderate right hydroureteronephrosis. Reviewed, dictated and finalized at location K. IMPRESSION: 4 mm right UVJ stone causing mild right obstructive uropathy, likely superimpos ed on chronic moderate right hydroureteronephrosis.
[2021-06-05 11:45] VITALS: BP 143/57; PULSE 63; RESP 18; TEMP 36.8; O2SAT 100
[2021-06-05 12:56] LABS: Basophils Percent Auto 0.5 % (0.2-1.2); Eosinophils Absolute Auto 0.1 K/mm3 (0-0.3); Eosinophils Percent Auto 2.3 % (0-4.4); Hematocrit 35.9 % (37.0-47.0); Hemoglobin 11.1 g/dL (12.0-15.0); Immature Granulocyte Absolute 0.01 K/mm3 (0.00-0.031); Immature Granulocyte Percent A 0.3 % (0-0.5); Lymphocytes Absolute Auto 0.67 K/mm3 (0.9-3.2); Mean Corpuscular HGB Conc 30.9 g/dl (32-36); Mean Corpuscular Hemoglobin 25.8 pg (26-34); Mean Corpuscular Volume 83.3 fl (80-100); Mean Platelet Volume 10.2 fl (7.4-10.4); Monocytes Absolute Auto 0.3 K/mm3 (0.1-0.6); Monocytes Percent Auto 6.3 % (2.6-8.5); Neutrophils Absolute Auto 2.9 K/mm3 (1.3-6.7); Neutrophils Percent Auto 73.6 % (45.5-73.1); Platelet Count Result 146 k/mm3 (150-375); Red Blood Count 4.31 M/mm3 (4.2-5.4); Red Cell Distribution Width 19.2 % (11.5-14.5); White Blood Count 3.9 K/mm3 (4.5-10.0)
[2021-06-05 13:02] LABS: Add Urine Microscopic? YES; Appearance Urine Cloudy (Clear); Bacteria Urine Trace /hpf; Bilirubin Urine Negative (Negative); Blood Urine 2+ (Negative); Color Urine Yellow (Yellow); Glucose Urine UA Negative (Negative); Ketones Urine Negative (Negative); Leukocyte Esterase Ur Trace LEU/UL (Negative); Mucus Urine Rare /lpf; Nitrate Urine Negative (Negative); Protein Urine 1+ mg/dL (Negative); Specific Grav Ur 1.024 (1.001-1.035); Squamous Epithelial Cell Urine Many /hpf (Few); Urobilinogen Urine Negative mg/dL (<2.0); WBC Urine 31-50 /hpf
[2021-06-05 13:09] LABS: Alanine Aminotransferase 42 U/L (4-35); Albumin Level 3.2 g/dL (3.5-5.1); Alkaline Phosphatase 160 U/L (38-126); Anion Gap 5 mmol/L (8-16); Aspartate Amino Transferase 86 U/L (14-36); Blood Urea Nitrogen 15 mg/dL (7-17); Carbon Dioxide 22 mmol/L (22-30); Chloride 110 mmol/L (98-107); Estimated Glomerular Filt Rate > 60; Glucose 100 mg/dL (65-110); Potassium 4.4 mmol/L (3.4-5.0); Sodium 137 mmol/L (137-145)
[2021-06-05] MEDS: MORPHINE SULFATE (*CRX) 4 MG/ML INJ IV PUSH (14:22)
[2021-06-05 14:28] VITALS: BP 144/76; PULSE 83; RESP 16; TEMP 36.5; O2SAT 97
--- NOTE | 2021-06-05 14:29 | PC.NURSE ---
iv infiltrated. SLN removed
--- NOTE | 2021-06-05 15:00 | ED.BACK ---
HPI - Back Pain/Injury General Chief Complaint: Back Pain/Injury Stated Complaint: flank pain, urinary frequency Time Seen by Provider: 06/05/21 12:29 Source: patient Mode of arrival: ambulatory Limitations: no limitations History of Present Illness HPI Narrative: pt is a 55 y/o female, PMHx of renal colic, presents to ED via POV with acute onset right flank pain, waking her from sleep around 0400 this morning. SHe endorses frequent urination and discomfort with urinary stream since arriving today. She has no known fevers or chills. She has felt nauseated but denies vomiting and she has no diarrhea or constipation. She denies any additional associated symptoms or modifying factors. She has no known covid concerns. MD elicited complaint: other (right flank) Pertinent past history: kidney stones Timing: intermittent Severity: severe Similar Symptoms Previously: Yes Quality: sharp and stabbing Location: right flank Radiation: none Exacerbating factors: none Relieving factors: none Associated symptoms: dysuria Related Data Home Medications Medication Instructions Recorded Confirmed amlodipine 5 mg tablet 5 mg PO DAILY 01/20/19 08/16/20 potassium chloride 10 mEq 10 meq PO DAILY 01/20/19 08/16/20 tablet,extended release furosemide 80 mg PO DAILY 04/06/19 08/16/20 gabapentin 300 mg PO TID 04/06/19 08/16/20 lidocaine 1 applic TOPICAL DAILY PRN 04/06/19 08/16/20 pantoprazole 40 mg PO QAM 04/06/19 08/16/20 trazodone 50 - 150 mg PO HS PRN 04/06/19 08/16/20 rizatriptan 10 mg PO DAILY PRN 04/28/19 08/16/20 spironolactone 100 mg PO DAILY 04/28/19 08/16/20 methocarbamol 1,000 mg PO TID 07/15/19 08/16/20 omega 2-cku-qdz-fish oil [Fish Oil] 1 cap PO DAILY 07/15/19 08/16/20 ferrous sulfate 325 mg (65 mg 325 mg PO BID tablet 10/11/19 08/16/20 iron) tablet Xifaxan 550 mg PO DAILY 08/19/20 08/19/20 albuterol 180 mcg INHALATION TID PRN 08/19/20 08/19/20 lactulose 30 ml PO DAILY 08/19/20 08/19/20 naltrexone 3 mg PO DAILY 08/19/20 08/19/20 Allergies Allergy/AdvReac Type Severity Reaction Status Date / Time fentanyl AdvReac Unknown N/V Verified 11/26/20 06:37 Review of Systems Review of Systems: refer to HPI Genitourinary: Genitourinary: Reports no additional female genitourinary complaints and Reports as per HPI [facility] Past Medical History Medical History Adult hypothyroidism Anxiety Arthritis Asthma Breast cancer screening CHF (congestive heart failure) Normal echocardiogram April 2017 with EF of 60% with mild left atrial enlargement normal diastolic function Chronic pain Previously on methadone but this was discontinued in June of 2018. The patient is requesting narcotic medications while she is inpatient Cirrhosis Status post TIPS MANAGED BY DR. Bradford at [facility] Cirrhosis of liver with ascites CVA (cerebral vascular accident) October 2005 Degenerative disc disease Depression Diabetes 1.5, managed as type 2 Managed by diet with her last hemoglobin A1c in our system performed August 2018 was 4.7 Essential (primary) hypertension Essential hypertension Fibromyalgia On chronic pain medication GERD (gastroesophageal reflux disease) Gout Headaches due to old head injury Heart murmur Normal echocardiogram April 2017 Hyperlipidemia, unspecified Hypothyroidism IBS (irritable bowel syndrome) Kidney stones Left carpal tunnel syndrome ALAYNA (obstructive sleep apnea) Portal vein thrombosis On chronic anticoagulation with Coumadin SLE (systemic lupus erythematosus related syndrome) Type 2 diabetes mellitus with diabetic polyneuropathy Surgical History Surgical History H/O: hysterectomy In her early to mid 30's due to fibrotic disease without soft finger oophorectomy History of carpal tunnel surgery of right wrist History of laparoscopic cholecystectomy July 2016 Previous section 03/12/1983 once in 1
[2021-06-05 15:30] VITALS: BP 142/70; PULSE 78; RESP 16; TEMP 36.3; O2SAT 98
[2021-06-05] MEDS: TAMSULOSIN HCL 0.4 MG CAPSULE PO (15:43)
[2021-06-05] MEDS: ONDANSETRON INJ 4 MG/2 ML VIAL IV PUSH (15:52)
--- NOTE | 2021-06-05 15:57 | WPDURCON ---
Assessment and Plan Assessment and plan (1) Right ureteral calculus: Code(s): N20.1 - Calculus of ureter Status: Acute Assessment and Plan: Plan to follow up for cystoscopy, right ureteroscopy with stone extraction, possible right stent placement, right retrograde pyelogram on outpatient with Dr. Serrano. We will all to schedule surgery. Ok to discharge patient home when nausea and vomiting improve with Zofran. Patient is well controlled with pain meds at this time. Urology Consult Note HPI Date Seen: 06/05/21 Primary Care Provider: Amor Arboleda, DO Consult Narrative Narrative: Liv Delong is a 55 year old female who presented today to the ER with acute onset of right flank pain that radiates to the right upper quadrant, accompanied by dysuria, nausea, vomiting and frequency of urination. She denies hematuria or fever. She has a history of kidney stones with ureteroscopy [place] [address] shows a 4 mm right UVJ stone causing mild right obstructive uropathy, likely superimposed on chronic moderate right hydroureteronephrosis. WBC 3.9, creatinine is 0.60. She is afebrile. Review of Systems Cardiovascular: Cardiovascular: Denies chest pain Respiratory: Respiratory: Reports no additional respiratory complaints Gastrointestinal: Gastrointestinal: Denies abdominal pain, Reports nausea and Reports vomiting Genitourinary: Genitourinary: Denies hematuria, Reports dysuria, Reports pelvic pain, Reports flank pain, Denies urinary incontinence and Reports urinary urgency PMFSH Past Medical History Medical History Adult hypothyroidism Anxiety Arthritis Asthma Breast cancer screening CHF (congestive heart failure) Normal echocardiogram April 2017 with EF of 60% with mild left atrial enlargement normal diastolic function Chronic pain Previously on methadone but this was discontinued in June of 2018. The patient is requesting narcotic medications while she is inpatient Cirrhosis Status post TIPS MANAGED BY DR. Bradford at [facility] Cirrhosis of liver with ascites CVA (cerebral vascular accident) October 2005 Degenerative disc disease Depression Diabetes 1.5, managed as type 2 Managed by diet with her last hemoglobin A1c in our system performed August 2018 was 4.7 Essential (primary) hypertension Essential hypertension Fibromyalgia On chronic pain medication GERD (gastroesophageal reflux disease) Gout Headaches due to old head injury Heart murmur Normal echocardiogram April 2017 Hyperlipidemia, unspecified Hypothyroidism IBS (irritable bowel syndrome) Kidney stones Left carpal tunnel syndrome ALAYNA (obstructive sleep apnea) Portal vein thrombosis On chronic anticoagulation with Coumadin SLE (systemic lupus erythematosus related syndrome) Type 2 diabetes mellitus with diabetic polyneuropathy Surgical History Surgical History H/O: hysterectomy In her early to mid 30's due to fibrotic disease without soft finger oophorectomy History of carpal tunnel surgery of right wrist History of laparoscopic cholecystectomy July 2016 Previous section 03/12/1983 once in 1987 S/P TIPS (transjugular intrahepatic portosystemic shunt) Late 2018 Family History Family History Mother Hypertension Breast cancer Cerebrovascular accident Coronary artery disease Father Cerebrovascular accident Coronary artery disease With IA at 40 years old Social History Social History Social History: Primary care physician: Dr. Temo Rios Code status: Full code per EMR Smoking status: Never smoker Second hand tobacco smoke exposure: No Alcohol intake: never Substance use: never Gender identity (if verbalized by the patient): Female Spir
[2021-06-05 16:30] VITALS: BP 136/74; PULSE 78; RESP 16; TEMP 36.8; O2SAT 98
[2021-06-05 17:30] VITALS: BP 136/74; PULSE 77; RESP 16; TEMP 36.8; O2SAT 98
[2021-06-05] MEDS: PROMETHAZINE HCL 25 MG TABLET PO (17:43)
[2021-06-05] MEDS: HYDROcodone/acetaminophen (*CRX) 5-325 MG TABLET 1 TAB PO (17:43)
[2021-06-05 18:30] VITALS: BP 136/78; PULSE 80; RESP 16; TEMP 36.5; O2SAT 98
== END 2021-06-05 18:53 | disposition home or self-care (01) ==
PROVIDERS: Emergency Medicine; Emergency Provider Nurse Practitioner Family; PCP Student in an Organized Health Care Education/Training Program
DX: N20.1 Calculus of ureter (principal); N30.00 Acute cystitis without hematuria; E03.9 Hypothyroidism, unspecified; F41.9 Anxiety disorder, unspecified; I50.9 Heart failure, unspecified; G89.29 Other chronic pain; E13.9 Other specified diabetes mellitus without complications; I11.0 Hypertensive heart disease with heart failure; M79.7 Fibromyalgia; E78.5 Hyperlipidemia, unspecified; Z87.442 Personal history of urinary calculi; Z86.73 Personal history of transient ischemic attack (TIA), and cerebral infarction without residual deficits
CPT/HCPCS: 36415; 74176; 80053; 81001; 85025; 87077; 87086; 87088; 87186; 96365; 96375; 99284; A9270; J0696; J2270; J2405

== ENCOUNTER 2021-06-07 01:24 | Day surgery (SDC) | payer MEDICARE, MEDICAID, SELFPAY ==
[2021-06-06 16:40] VITALS: BMI 37.7
--- NOTE | 2021-06-06 17:35 | PC.NURSE ---
Report to the Outpatient Waiting Room, entrance under the green pavilion located off [facility], at time 0915 on date 06/07/21. OR Time: 1130___. - You and your visitor will be asked a series of questions to screen for COVID 19 for your protection. - A mask is required within the hospital. Preoperative COVID Testing Requirements: No COVID Test needed if: (proof is required; if not received patient will have Rapid Test prior to entry) - Patient has received COVID Vaccine at least 14 days prior to procedure date or - Patient has positive COVID test result within last 90 days of surgery date. COVID Test needed if above criteria is not met If not COVID vaccinated a COVID test must be conducted within 72 hours of surgery and patient is asked to isolate self from time of testing until procedure. You will go to the [employer] [facility] for your COVID testing. The [employer] [facility] site is located at the corner of [address] [facility]. You will only be called if COVID results are positive and your surgeon may reschedule your elective surgery date. Patients may have clear liquids (water, carbonated beverages, clear teas, apple juice) until 3 hours prior to surgery with a maximum of 20 ounces. - No food from midnight until time of surgery - Infants may have breast milk until 4 hours before surgery, infant formula 6 hours prior to surgery. - Children will be allowed to drink immediately following surgery. If applicable, please bring a bottle or sippy cup to assist with drinking. Juice, water, soda, and popsicles are readily available. For infants on formula, please bring formula the day of surgery. Pacifiers are allowed. Take the following medications with a SIP of water the morning of surgery: albuterol, amlodipine, cyclobenzaprine, duloxetine, gabapentin, norco, levothyroxine, xifaxan, Medications to discontinue per physician vitamins, supplements, potassium, spironolactone, furosemide, pantoprazole, tamsulosin Date to take last dose06/06/21 Please no make-up, nail spanish, hairspray, perfume, deodorant, or body powder the day of surgery. No jewelry (including any body piercings) or valuables the day of surgery, leave them at home. Please take a shower or bath the night before, or the morning of, surgery with an antibacterial soap. Wear comfortable, loose fitting clothing. Children are encouraged to wear pajamas. - Jewelry must be removed prior to entering the operating room. Rings and piercings that are not removed may be cut off. - The hospital will not accept responsibility for valuables. - Please leave all valuables, including medications, at home the day of surgery. If you are going home after surgery, a licensed wrecking car driver must drive you home. - NO public transportation without another adult. - We recommend that an adult stay with you for 24 hours following discharge. - We also recommend that you do not drive, make important decision, drink alcoholic beverages, or take any drugs that were not prescribed by your health care provider for at least 24 hours after your discharge time. For Pediatric surgeries, we recommend two adults accompany the child home (only one inside the building at this time). One visitor will be allowed to accompany the patient into the hospital. Patients visitor will be instructed to remain with patient at all times or leave the building. We will allow the visitor to come back to the postoperative area when patient is ready. Follow any additional instructions given to you from your surgeon. Telephone instructions given to Liv Delong and asked if any additional questions and then verbalized understanding. Patient advised to call surgeon office or pre surgery nurse liaison [phone] if any additional questions.
[2021-06-07] VITALS (8 sets, daily range): BP systolic 133–149; BP diastolic 50–68; PULSE 73–88; RESP 12–16; TEMP 36.3–36.8; O2SAT 97–100
--- NOTE | ~2021-06-07 | XR_ITS ---
EXAMINATION: XR fluoroscopy no charge EXAM DATE: 06/07/2021 11:33 INDICATION: Rt Retro/ Possible Stent Placement TECHNIQUE: Fluoroscopy used during XR fluoroscopy no charge performed by Dr. King Serrano MD. Radiologist was not present for the imaging or procedure. Total fluoroscopic time of 27 seconds T he DAP for this procedure was 0.57 mGym2. A total of 4 images sent to PACS from the exam. FINDINGS: Cystoscopy scope on one of the images. Correlate with procedure note. IMPRESSION: XR fluoroscopy no charge. Reviewed, dictated and finalized at location A. IMPRESSION: XR fluoroscopy no charge.
--- NOTE | 2021-06-07 07:00 | WPDHPUPDATE1 ---
History and Physical Update Update Date/Time: 06/07/21 07:00 History and Physical has been reviewed, including an updated exam of the patient. There are NO changes in the patient's condition. Risks, benefits, and alternatives have been discussed and questions answered. Patient agrees to proceed with procedure.
[2021-06-07] MEDS: LACTATED RINGERS 1,000 ML 30 ML IV CONT (10:40)
--- NOTE | 2021-06-07 10:44 | WPDANESEPPF ---
Anes - Initial Pre Proc Eval Procedure: Operation Date: 06/07/21 11:30 Proposed Procedures p Cystoscopy, Right Ureteroscopy, Right Retrograde Pyelogram, Right Stone Extraction, Possible Stent Placement, - King Serrano MD s Possible Laser Lithotripsy - King Serrano MD Date/Time: 06/07/21 10:44 Surgeon: King Serrano MD Pre Op Diagnosis: right ureteral stone Patient Data Age: 55 Gender: F Height: 1.68 m Weight: 106 kg Allergies Allergy/AdvReac Type Severity Reaction Status Date / Time fentanyl AdvReac Unknown N/V Verified 06/07/21 10:24 Home Medications Medication Instructions Recorded Confirmed Type amlodipine 5 mg tablet 5 mg PO DAILY 01/20/19 06/07/21 History potassium chloride 10 mEq 10 meq PO DAILY 01/20/19 06/07/21 History tablet,extended release furosemide 80 mg PO DAILY 04/06/19 06/07/21 History gabapentin 300 mg PO TID 04/06/19 06/07/21 History lidocaine 1 applic TOPICAL DAILY PRN 04/06/19 06/06/21 History pantoprazole 40 mg PO QAM 04/06/19 06/07/21 History trazodone 50 - 150 mg PO HS PRN 04/06/19 06/07/21 History rizatriptan 10 mg PO DAILY PRN 04/28/19 06/07/21 History spironolactone 100 mg PO DAILY 04/28/19 06/07/21 History omega 5-hoz-uzo-fish oil [Fish Oil] 1 cap PO DAILY 07/15/19 06/07/21 History ferrous sulfate 325 mg (65 mg 325 mg PO BID tablet 10/11/19 06/07/21 History iron) tablet levothyroxine 125 mcg tablet See Rx Instructions .ROUTE 05/26/20 06/07/21 Rx .COMPLEX #30 tablet Xifaxan 550 mg PO DAILY 08/19/20 06/07/21 History albuterol 180 mcg INHALATION TID PRN 08/19/20 06/07/21 History cyclobenzaprine 10 mg PO TID PRN #20 tablet 04/03/21 06/07/21 Rx naproxen 375 mg PO BID #14 tablet 04/03/21 06/07/21 Rx hydrocodone-acetaminophen 1 tablet PO Q6H PRN #15 tablet 06/05/21 06/07/21 Rx promethazine 25 mg PO TID PRN #10 tablet 06/05/21 06/07/21 Rx tamsulosin [Flomax] 0.4 mg PO DAILY #14 cap 06/05/21 06/07/21 Rx Patient hx anesthesia problems: none Family hx anesthesia problems: none Results Review: All pre-operative results and documents have been reviewed as part of the pre-operative evaluation. [facility] Past Medical History Medical History Adult hypothyroidism Anxiety Arthritis Asthma Breast cancer screening CHF (congestive heart failure) Normal echocardiogram April 2017 with EF of 60% with mild left atrial enlargement normal diastolic function Chronic pain Previously on methadone but this was discontinued in June of 2018. The patient is requesting narcotic medications while she is inpatient Cirrhosis Status post TIPS MANAGED BY DR. Bradford at [facility] Cirrhosis of liver with ascites CVA (cerebral vascular accident) October 2005 Degenerative disc disease Depression Diabetes 1.5, managed as type 2 Managed by diet with her last hemoglobin A1c in our system performed August 2018 was 4.7 Essential (primary) hypertension Essential hypertension Fibromyalgia On chronic pain medication GERD (gastroesophageal reflux disease) Gout Headaches due to old head injury Heart murmur Normal echocardiogram April 2017 Hyperlipidemia, unspecified Hypothyroidism IBS (irritable bowel syndrome) Kidney stones Left carpal tunnel syndrome ALAYNA (obstructive sleep apnea) Portal vein thrombosis On chronic anticoagulation with Coumadin SLE (systemic lupus erythematosus related syndrome) Type 2 diabetes mellitus with diabetic polyneuropathy Surgical History Surgical History H/O: hysterectomy In her early to mid 30's due to fibrotic disease without soft finger oophorectomy History of carpal tunnel surgery of right wrist History of laparoscopic cholecystectomy July 2016 Previous section 03/12/1983 once in 1987 S/P TIPS (transjugular intrahepatic portosystemic shunt) Late 2018 Family History Family History Shahab
[2021-06-07] MEDS: ceFAZolin 2 GM/D5W 50 ML 2 GM/50 ML BAG IVPB (10:59)
[2021-06-07] MEDS: LIDOCAINE HCL 2% GEL UROJET 10 ML PKG MUCOUS MEM (11:15)
[2021-06-07] MEDS: KETOROLAC 15 MG/ML VIAL (*BKC) IV PUSH (11:32)
--- NOTE | 2021-06-07 11:34 | W.PM.PROC2 ---
Procedure Note - Detailed Date of Procedure 06/07/21 Pre-op Diagnosis Right ureteral stone Post-op Diagnosis Other ( Spontaneously passed right ureteral calculus) Procedure Performed Cystoscopy, right ureteroscopy Surgeon King Serrano MD Anesthesia General Description of Procedure The patient was brought to the operative suite where she is prepped and draped in a routine sterile fashion while in the dorsal lithotomy position after the uneventful induction of a general LMA anesthetic. A 19F rigid cystoscope was placed in the bladder. The patient had no evidence of urethral stricture or bladder neck contracture. The bladder mucosa was endoscopically normal without hyperemia or neoplasm. There was a single, orthotopic ureteral orifice bilaterally. A 0.035 glidewire was advanced into the rigt renal pelvis under fluoroscopy. The distal ureter was dilated with an 8F/10F ureteral dilator. Ureteroscopy with a semi-rigid ureteral scope failed to show any identifiable stones. She did have moderate edema in the intramural right ureter. I passed a 7.5 F flexible ureteral scope carefully examined all calices, renal pelvis and the more proximal ureter. There were no residual significant stones. The patient's bladder was emptied and was taken to the recovery room having tolerated this procedure well. Estimated Blood Loss 0 Drains No Packing No Pathology None sent Complications No immediate complications Condition Stable Disposition PACU
== END 2021-06-07 13:13 | disposition home or self-care (01) ==
PROVIDERS: PCP Student in an Organized Health Care Education/Training Program; Visit Provider Urology
PROC: (CPT 52352; principal; 2021-06-07 11:30)
DX: N20.1 Calculus of ureter (principal); I11.0 Hypertensive heart disease with heart failure; I50.9 Heart failure, unspecified; K70.31 Alcoholic cirrhosis of liver with ascites; E13.42 Other specified diabetes mellitus with diabetic polyneuropathy; M79.7 Fibromyalgia; G47.33 Obstructive sleep apnea (adult) (pediatric); K21.9 Gastro-esophageal reflux disease without esophagitis; M10.9 Gout, unspecified; E78.5 Hyperlipidemia, unspecified; E03.9 Hypothyroidism, unspecified; M32.9 Systemic lupus erythematosus, unspecified; F41.9 Anxiety disorder, unspecified; J45.909 Unspecified asthma, uncomplicated; G89.29 Other chronic pain; Z86.73 Personal history of transient ischemic attack (TIA), and cerebral infarction without residual deficits; K58.9 Irritable bowel syndrome, unspecified; E66.9 Obesity, unspecified; Z68.38 Body mass index [BMI] 38.0-38.9, adult
CPT/HCPCS: 52351; 87426; A9270; C1758; C1769; C1887; C9803; J0690; J1885; J2250; J2270; J2405; J2704; J7120

== ENCOUNTER 2021-06-07 09:13 | Outpatient (CLI) | payer MEDICARE, MEDICAID, SELFPAY ==
[2021-06-07 09:41] LABS: EDCOVIDSCREEN Negative (Negative)
== END 2021-06-07 09:14 | disposition home or self-care (01) ==
LOC: ANHSURGERY 09:17
PROVIDERS: PCP Student in an Organized Health Care Education/Training Program; Visit Provider Urology
DX: Z01.812 Encounter for preprocedural laboratory examination (principal); Z20.822 Contact with and (suspected) exposure to COVID-19
CPT/HCPCS: 87426; C9803

== ENCOUNTER 2021-10-10 17:05 | Outpatient (CLI) | payer MEDICARE, MEDICAID, SELFPAY ==
[2021-10-10 19:36] LABS: Crystals Synovial Fluid None Seen (None Seen); Source Synovial Fluid Synovial fluid
[2021-10-10 19:37] LABS: Appearance Synovial Fluid Clear (Clear); Color Synovial Fluid Yellow (Colorless); Lymphocytes Synovial Fluid 82 %; Monocytes Synovial Fluid 18 %; Neutrophils Synovial Fluid 0 % (0-25); Nucleated Cell Synovial Fluid 165 /uL (0-200); RBC Synovial Fluid 109 /uL (0-0)
== END 2021-10-10 17:06 | disposition home or self-care (01) ==
LOC: ANHLAB 17:08
PROVIDERS: PCP Student in an Organized Health Care Education/Training Program; Visit Provider Orthopaedic Surgery
DX: M25.461 Effusion, right knee (principal)
CPT/HCPCS: 87070; 87075; 87205; 89051; 89060

== ENCOUNTER 2022-01-26 11:54 | Emergency (ER) | payer MEDICARE, MEDICAID, SELFPAY ==
--- NOTE | ~2022-01-26 | CT_ITS ---
EXAMINATION: CT facial & cervical spine wo DATE: 01/26/2022 13:02 INDICATION: Fall. Left eye swelling and bruising, neck tenderness TECHNIQUE: Computed tomography (CT) of the facial bones and maxillofacial region was performed withou t intravenous contrast. Automated exposure control and iterative reconstruction technique were employ ed. Exam dose: 478.55 mGy-cm total exam DLP. COMPARISON: 01/26/2022 CT head FINDINGS: There is left frontal cephalohematoma and left periorbital soft tissue swelling consistent with hematoma. The ocular globes are intact. No intraconal or extraconal orbital mass is noted. No skull fracture is detected. The orbital rims and phipps are intact. There is no evidence of orbital blowout fracture. The frontozygomatic sutures and zygomatic arches are intact. No maxillary fracture. No nasal bone fra cture. No mandibular fracture is detected. There is straightening of the cervical spine which may be due to muscle spasm. C1 and C2 are normally aligned and the odontoid process is intact. No fracture or dislocation or lock ed facet or prevertebral soft tissue swelling is noted. Moderately prominent degenerative disc disease at C4-5 mildly severe degenerative disease at C6-7. Th ere is mild degenerative disc disease at the remaining cervical interspaces. There is degenerative change at the apophyseal joints. Uncovertebral joint spurring is noted, particu larly on the left C3-4 and C6-7 and bilaterally at C4-5. IMPRESSION: Left frontal cephalohematoma and left periorbital hematoma No orbital or facial fracture Straightening of the cervical spine; no cervical spine fracture, dislocation or locked facet Cervical spondylosis Reviewed, dictated and finalized at Location [facility]. Reviewed, dictated and finalized at location A. PHERE ARCHITECT
--- NOTE | ~2022-01-26 | CT_ITS ---
EXAMINATION: CT brain wo con DATE: 01/26/2022 13:02 INDICATION: Fall. Prominent headache. Left eye swelling, bruising. Neck tenderness. TECHNIQUE: Computed tomography (CT) of the head was performed without intravenous contrast. The mA wa s adjusted according to patient size. Iterative reconstruction technique was employed. Exam dose: 60 5.33 mGy-cm total exam DLP. COMPARISON: None FINDINGS: Prominent left frontal cephalohematoma and left periorbital soft tissue swelling. No skull fracture or bone destruction is detected. The mastoid air cells and included paranasal sinuses are normally developed and aerated. No intracranial mass lesion or hemorrhage or cerebrovascular accident is detected. No midline shift o r mass effect effect. Normal ventricular size. No subdural or epidural hematoma is detected. No coup or contrecoup intracranial injury is detected. IMPRESSION: Left frontal cephalohematoma and left periorbital hematoma No skull fracture or significant acute intracranial finding Reviewed, dictated and finalized at Location [facility]. Reviewed, dictated and finalized at location A. TER HAND
[2022-01-26 12:00] VITALS: BP 156/78; PULSE 84; RESP 20; TEMP 36.8; O2SAT 100
--- NOTE | 2022-01-26 12:28 | ED.FALL ---
HPI - Fall General Chief Complaint: Fall Stated Complaint: fall, headache Time Seen by Provider: 01/26/22 12:14 History of Present Illness HPI Narrative: Patient is a 56-year-old female here for evaluation of a fall with head injury today. Patient states that she was in her usual state of health when her dog ran out of the door, pushed her over, causing her to fall and strike her face against the concrete. Patient denies loss of consciousness. She is not on blood thinner medicines. Since then she has reported swelling around her left eye and forehead and pain at the site. She denies any changes to her vision, numbness or tingling to her face, weakness, nausea or vomiting. She has not taken any medicine for pain. Patient states the pain and swelling has actually improved today but her friends urged her to be evaluated. Related Data Home Medications Medication Instructions Recorded Confirmed potassium chloride 10 mEq 10 meq PO DAILY 01/20/19 10/10/21 tablet,extended release furosemide 80 mg tablet 80 mg PO DAILY 04/06/19 10/10/21 lidocaine 5 % topical ointment 1 applic topical DAILY PRN Pain 04/06/19 10/10/21 pantoprazole 40 mg tablet,delayed 40 mg PO QAM 04/06/19 10/10/21 release trazodone 50 mg tablet 50 - 150 mg PO HS PRN Sleep 04/06/19 10/10/21 rizatriptan 10 mg tablet 10 mg PO DAILY PRN Migraine 04/28/19 10/10/21 Headache spironolactone 100 mg tablet 100 mg PO DAILY 04/28/19 10/10/21 omega 1-jiw-lfr-fish oil 1,000 mg 1 cap PO DAILY 07/15/19 10/10/21 (120 mg-180 mg) capsule (Fish Oil) albuterol 90 mcg/actuation aerosol 180 mcg inhalation TID PRN dyspnea 08/19/20 10/10/21 inhaler Allergies Allergy/AdvReac Type Severity Reaction Status Date / Time fentanyl AdvReac Unknown N/V Verified 01/26/22 11:55 Review of Systems Review of Systems: Gen.: Denies fevers or chills Eyes: Denies eye pain or visual change ENT: Denies congestion Respiratory: Denies shortness of breath or cough CV: Denies chest pain or palpitations GI: Denies abdominal pain nausea, emesis or diarrhea denies burning, urgency, frequency or hematuria Musculoskeletal: Reports pain and swelling around left eye. Denies back pain or muscle pain Neuro: Denies numbness, tingling, weakness or focal weakness Skin: Denies rash Except as documented, all other systems reviewed and negative [facility] Past Medical History Medical History Adult hypothyroidism Anxiety Arthritis Asthma Breast cancer screening CHF (congestive heart failure) Normal echocardiogram April 2017 with EF of 60% with mild left atrial enlargement normal diastolic function Chronic pain Previously on methadone but this was discontinued in June of 2018. The patient is requesting narcotic medications while she is inpatient Cirrhosis Status post TIPS MANAGED BY DR. Bradford at [facility] Cirrhosis of liver with ascites CVA (cerebral vascular accident) October 2005 Degenerative disc disease Depression Diabetes 1.5, managed as type 2 Managed by diet with her last hemoglobin A1c in our system performed August 2018 was 4.7 Essential (primary) hypertension Essential hypertension Fibromyalgia On chronic pain medication GERD (gastroesophageal reflux disease) Gout Headaches due to old head injury Heart murmur Normal echocardiogram April 2017 Hyperlipidemia, unspecified Hypothyroidism IBS (irritable bowel syndrome) Kidney stones Left carpal tunnel syndrome ALAYNA (obstructive sleep apnea) Portal vein thrombosis On chronic anticoagulation with Coumadin SLE (systemic lupus erythematosus related syndrome) Type 2 diabetes mellitus with diabetic polyneuropathy Surgical History Surgical History H/O: hysterectomy In her early to mid 30's due to fibrotic disease without soft finger oophorectomy History of carpal tunnel surgery of right wrist History of laparoscopic chol
[2022-01-26] MEDS: HYDROcodone/acetaminophen (*CRX) 5-325 MG TABLET 1 TAB PO (12:37)
== END 2022-01-26 13:40 | disposition home or self-care (01) ==
PROVIDERS: Emergency Provider Physician Assistant; PCP Student in an Organized Health Care Education/Training Program
DX: S05.12XA Contusion of eyeball and orbital tissues, left eye, initial encounter (principal); I11.0 Hypertensive heart disease with heart failure; I50.9 Heart failure, unspecified; E13.42 Other specified diabetes mellitus with diabetic polyneuropathy; E03.9 Hypothyroidism, unspecified; K74.60 Unspecified cirrhosis of liver; K21.9 Gastro-esophageal reflux disease without esophagitis; K58.9 Irritable bowel syndrome, unspecified; M32.9 Systemic lupus erythematosus, unspecified; M79.7 Fibromyalgia; M19.90 Unspecified osteoarthritis, unspecified site; M10.9 Gout, unspecified; G47.33 Obstructive sleep apnea (adult) (pediatric); Z86.73 Personal history of transient ischemic attack (TIA), and cerebral infarction without residual deficits; Z87.442 Personal history of urinary calculi; Z86.718 Personal history of other venous thrombosis and embolism; Z90.710 Acquired absence of both cervix and uterus
CPT/HCPCS: 70450; 70486; 72125; 99284; A9270

== ENCOUNTER 2022-09-14 04:05 | Emergency (ER) | payer MEDICARE, MEDICAID, SELFPAY ==
[2022-09-14] VITALS (13 sets, daily range): BP systolic 122–137; BP diastolic 38–57; PULSE 83–96; RESP 14–33; TEMP 36.5; O2SAT 89–100
--- NOTE | 2022-09-14 04:19 | ECG_ITS ---
Measurements Intervals [place] Rate: 84 P: 27 DE: 128 QRS: -1 QRSD: 97 T: 30 QT: 390 QTc: 463 Interpretive Statements SINUS RHYTHM LEFT VENTRICULAR HYPERTROPHY CONSIDER INFERIOR INFARCT, AGE INDETERMINATE ABNORMAL ECG COMPARED TO ECG 04/03/2021 16:47:59 NO SIGNIFICANT CHANGES Electronically Signed On 09-14-2022 7:47:19 CDT by Faizan Cedillo D.O.
[2022-09-14] MEDS: SODIUM CHLORIDE 0.9% IV 1,000 ML 150 ML IV CONT (04:48)
[2022-09-14] MEDS: ONDANSETRON INJ 4 MG/2 ML VIAL IV PUSH (04:48)
[2022-09-14 05:07] LABS: Alanine Aminotransferase 31 U/L (6-35); Albumin Level 2.4 g/dL (3.5-5.1); Alkaline Phosphatase 91 U/L (38-126); Anion Gap 0 mmol/L (8-16); Aspartate Amino Transferase 73 U/L (14-36); Bilirubin,Total 1.6 mg/dL (0.2-1.3); Blood Urea Nitrogen 24 mg/dL (7-17); Calcium 7.7 mg/dL (8.4-10.2); Carbon Dioxide 26 mmol/L (22-30); Chloride 113 mmol/L (98-107); Estimated CRCL calculation 133 ml/min; Estimated Glomerular Filt Rate > 60; Glucose 103 mg/dL (65-110); Lipase 142 U/L (23-300); Potassium 4.7 mmol/L (3.4-5.0); Sodium 139 mmol/L (137-145)
--- NOTE | 2022-09-14 05:17 | ED.ABDPAIN ---
HPI - Abdominal Pain General Chief Complaint: Abdominal Pain Stated Complaint: n/v Time Seen by Provider: 09/14/22 04:19 Source: patient Mode of arrival: EMS Limitations: no limitations History of Present Illness HPI narrative: 56-year-old with a history of hypertension, liver problems here with complaints of nausea and vomiting x2 since the statement. 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 She denies being lightheaded, chest pain. MD elicited complaint: abdominal pain Pertinent past history: kidney stones Onset (ago): hour(s) (2) Location: [facility] Severity: mild Quality: aching Radiation: none Migration to: no migration Exacerbating factors: nothing Relieving factors: nothing Related Data Home Medications Medication Instructions Recorded Confirmed potassium chloride 10 mEq 10 meq PO DAILY 01/20/19 10/10/21 tablet,extended release furosemide 80 mg tablet 80 mg PO DAILY 04/06/19 10/10/21 lidocaine 5 % topical ointment 1 applic topical DAILY PRN Pain 04/06/19 10/10/21 pantoprazole 40 mg tablet,delayed 40 mg PO QAM 04/06/19 10/10/21 release trazodone 50 mg tablet 50 - 150 mg PO HS PRN Sleep 04/06/19 10/10/21 rizatriptan 10 mg tablet 10 mg PO DAILY PRN Migraine 04/28/19 10/10/21 Headache spironolactone 100 mg tablet 100 mg PO DAILY 04/28/19 10/10/21 omega 1-udm-aou-fish oil 1,000 mg 1 cap PO DAILY 07/15/19 10/10/21 (120 mg-180 mg) capsule (Fish Oil) albuterol 90 mcg/actuation aerosol 180 mcg inhalation TID PRN dyspnea 08/19/20 10/10/21 inhaler Allergies Allergy/AdvReac Type Severity Reaction Status Date / Time fentanyl AdvReac Unknown N/V Verified 01/26/22 11:55 Review of Systems Review of Systems: All systems reviewed & are unremarkable except as noted in HPI and below Constitutional: Constitutional: Reports no additional constitutional complaints Eyes: Eyes: Reports no additional eye complaints ENT: Reports system reviewed and no additional complaints, except as documented Cardiovascular: Cardiovascular: Reports no additional cardiovascular complaints Respiratory: Respiratory: Reports no additional respiratory complaints Gastrointestinal: Gastrointestinal: Reports as per HPI Musculoskeletal: Musculoskeletal: Reports no additional musculoskeletal complaints Integumentary/Breasts: Skin/Breast: Reports system reviewed and no additional complaints, except as docu Neurologic: Reports system reviewed and no additional complaints, except as documented Endocrine: Endocrine: Reports no additional endocrine complaints [facility] Past Medical History Medical History Adult hypothyroidism Anxiety Arthritis Asthma Breast cancer screening CHF (congestive heart failure) Normal echocardiogram April 2017 with EF of 60% with mild left atrial enlargement normal diastolic function Chronic pain Previously on methadone but this was discontinued in June of 2018. The patient is requesting narcotic medications while she is inpatient Cirrhosis Status post TIPS MANAGED BY DR. Bradford at [facility] Cirrhosis of liver with ascites CVA (cerebral vascular accident) October 2005 Degenerative disc disease Depression Diabetes 1.5, managed as type 2 Managed by diet with her last hemoglobin A1c in our system performed August 2018 was 4.7 Essential (primary) hypertension Essential hypertension Fibromyalgia On chronic pain medication GERD (gastroesophageal reflux disease) Gout Headaches due to old head injury Heart murmur Normal echocardiogram April 2017 Hyperlipidemia, unspecified Hypothyroidism IBS (irritable bowel syndrome) Kidney stones Left carpal tunnel syndrome ALAYNA (obstructive sleep apnea) Portal vein thrombosis On chronic anticoagulation with Coumadin SLE (systemic lupus erythematosus related syndrome) Type 2 diabetes mellitus with diabetic polyneuropathy Surgical History Surgical History (Reviewed 01/26/22 @ 12
--- NOTE | 2022-09-14 05:20 | PC.NURSE ---
pt is resting with closed eyes. pt has not vomited since arrival. pt is smiling and laughing. axox4, abc are wnl nad. airway is patent,spontaneous and self maintained. vss and will continue to monitor
[2022-09-14 05:26] LABS: Basophils Absolute Auto 0.1 K/mm3 (0.0-0.1); Basophils Percent Auto 0.8 % (0.2-1.2); Eosinophils Percent Auto 0.5 % (0-4.4); Hematocrit 25.9 % (37.0-47.0); Hemoglobin 7.8 g/dL (12.0-15.0); Immature Granulocyte Absolute 0.02 K/mm3 (0.00-0.031); Immature Granulocyte Percent A 0.3 % (0-0.5); Lymphocytes Absolute Auto 0.84 K/mm3 (0.9-3.2); Lymphocytes Percent Auto 13.6 % (18.3-44.2); Mean Corpuscular HGB Conc 30.1 g/dl (32-36); Mean Corpuscular Hemoglobin 24.7 pg (26-34); Mean Platelet Volume 11.2 fl (7.4-10.4); Monocytes Absolute Auto 0.3 K/mm3 (0.1-0.6); Monocytes Percent Auto 5.3 % (2.6-8.5); Neutrophils Absolute Auto 4.9 K/mm3 (1.3-6.7); Neutrophils Percent Auto 79.5 % (45.5-73.1); Platelet Count Result 194 k/mm3 (150-375); Red Blood Count 3.16 M/mm3 (4.2-5.4); Red Cell Distribution Width 19.8 % (11.5-14.5); White Blood Count 6.2 K/mm3 (4.5-10.0)
--- NOTE | 2022-09-25 00:03 | PC.NURSE ---
09/16/22 iv stopped at discharge
== END 2022-09-14 05:52 | disposition home or self-care (01) ==
PROVIDERS: Emergency Provider Family Medicine; PCP Student in an Organized Health Care Education/Training Program
DX: R11.2 Nausea with vomiting, unspecified (principal); J45.909 Unspecified asthma, uncomplicated; I50.9 Heart failure, unspecified; I11.0 Hypertensive heart disease with heart failure; E03.9 Hypothyroidism, unspecified; E78.5 Hyperlipidemia, unspecified; E13.42 Other specified diabetes mellitus with diabetic polyneuropathy; K21.9 Gastro-esophageal reflux disease without esophagitis; K74.60 Unspecified cirrhosis of liver; K58.9 Irritable bowel syndrome, unspecified; M19.90 Unspecified osteoarthritis, unspecified site; M79.7 Fibromyalgia; M32.9 Systemic lupus erythematosus, unspecified; M10.9 Gout, unspecified; F41.9 Anxiety disorder, unspecified; F32.A Depression, unspecified; Z87.442 Personal history of urinary calculi; Z86.73 Personal history of transient ischemic attack (TIA), and cerebral infarction without residual deficits; Z90.710 Acquired absence of both cervix and uterus; Z90.49 Acquired absence of other specified parts of digestive tract; I51.7 Cardiomegaly; R94.31 Abnormal electrocardiogram [ECG] [EKG]
CPT/HCPCS: 36415; 80053; 83690; 85025; 93005; 96361; 96374; 99284; J2405; J7030

== ENCOUNTER 2022-09-14 15:40 | Inpatient (IN) | payer MEDICARE, MEDICAID, SELFPAY ==
[2022-09-14] VITALS (12 sets, daily range): BP systolic 88–121; BP diastolic 47–66; PULSE 87–130; RESP 11–25; TEMP 36.7–37; O2SAT 93–100; BMI 38.6
--- NOTE | ~2022-09-14 | XR_ITS ---
Supine portable view of the abdomen Clinical history: NG tube placement Findings: NG tube is in place, tip probably extending into the extending into the right upper quadran t, possibly within distended stomach. Endovascular coils are noted in the left upper quadrant. TIPS p resent. Bowel gas pattern is nonspecific. No evidence for obstruction or free air. No abnormal mass l esion or calcification is seen. Osseous structures are intact. Impression: NG tube in place, tip below diaphragm, as detailed above. Reviewed, dictated and finalized at location M. Impression: NG tube in place, tip below diaphragm, as detailed above.
--- NOTE | ~2022-09-14 | XR_ITS ---
Portable chest x-ray Comparison: 09/17/2022 at 10:55 AM Clinical History: Tube present Findings: Endotracheal tube and NG tube and left-sided central venous line are in satisfactory posit ions. Right-sided PICC line is present, tip in the right subclavian region, unchanged. Questionable m inimal haziness at the lung bases. Cardiomediastinal silhouette is stable. Bones and soft tissues ar e unremarkable. Impression: Support tubes in place, as above. Right-sided PICC line tip remains in the right subclavian region. Minimal bibasilar haziness. Correlate for minimal pulmonary edema. Reviewed, dictated and finalized at location M. Impression: Support tubes in place, as above. Right-sided PICC line tip remains in the righ t subclavian region. Minimal bibasilar haziness. Correlate for minimal pulmonary edema.
--- NOTE | ~2022-09-14 | XR_ITS ---
EXAMINATION: XR chest 1V portable DATE: 09/14/2022 16:45 INDICATION: Hematemesis. TECHNIQUE: A single frontal view of the chest was obtained. COMPARISON: Chest 2 views 04/03/2021 FINDINGS: The chest demonstrates clear lungs without pneumonia, pleural effusion, or pneumothorax. Th e heart size is normal. IMPRESSION: 1. No acute cardiopulmonary disease. Reviewed, dictated and finalized at location E.
--- NOTE | ~2022-09-14 | US_ITS ---
US abdomen complete DATE: 09/15/2022 12:02 INDICATION: Cirrhosis TECHNIQUE: Real-time imaging of complete abdomen COMPARISON: 06/05/2021 CT abdomen pelvis FINDINGS: The gallbladder is surgically absent. There is surface nodularity of the relatively small appearing liver, with heterogeneous echotexture. The common bile duct measures 3.8 mm. The kidneys each measure approximately 10 cm length. No renal mass lesion or hydronephrosis is eviden t. Borderline splenomegaly. IMPRESSION: Hepatic cirrhosis Status post cholecystectomy Reviewed, dictated and finalized at Location A. Reviewed, dictated and finalized at location A.
--- NOTE | ~2022-09-14 | XR_ITS ---
XR chest PICC line DATE: 09/15/2022 08:22 INDICATION: PICC line placement TECHNIQUE: Portable AP chest on 09/15/2022 at 0819 hours COMPARISON: 09/14/2022 portable AP chest at 1643 hours FINDINGS: Interval placement of right upper extremity PIC catheter, the tip overlying the superior ve na cava. Normal heart size. No pulmonary infiltrate or consolidation, pleural effusion or pulmonary vascular c ongestion or pneumothorax is detected. IMPRESSION: Right upper extremity PIC catheter tip overlies superior vena cava Reviewed, dictated and finalized at Location A. Reviewed, dictated and finalized at location A.
--- NOTE | ~2022-09-14 | XR_ITS ---
Portable chest x-ray Comparison: 09/15/2022 Clinical History: Malfunctioning PICC line Findings: Right-sided PICC line is in place, however the tip has become retracted and coiled in the right subclavian region as compared to prior exam. Lungs are clear, without focal consolidation or pl eural effusion. No pneumothorax. Cardiomediastinal silhouette is stable. Bones and soft tissues are u nremarkable. Impression: Distal right PICC line has become retracted and coiled in the right subclavian vein region since prio r exam. Repositioning of the PICC line is recommended. Reviewed, dictated and finalized at location M. Impression: Distal right PICC line has become retracted and coiled in the right subclavian vein region since prior exam. Repositioning of the PICC line is recommended.
--- NOTE | ~2022-09-14 | XR_ITS ---
EXAMINATION: XR chest PICC line DATE: 09/17/2022 11:02 INDICATION: Central line placement. TECHNIQUE: A single frontal view of the chest was obtained. COMPARISON: Chest single view at 8:34 AM FINDINGS: There is no pneumonia, pleural effusion, or pneumothorax. The heart size is normal. A left upper extremity peripherally inserted central venous catheter (PICC) is seen with tip in the superior vena cava. There is a right upper extremity catheter with tip in right axillary vein. There is a TIP S in the liver. Surgical clips and embolization material is seen in the upper abdomen. IMPRESSION: 1. PICC tip in superior vena cava. 2. Right-sided catheter tip in right axillary vein. Reviewed, dictated and finalized at location A.
--- NOTE | 2022-09-14 15:51 | ED.GENADULT ---
HPI - General Adult General Chief complaint: GI Bleed Stated complaint: ABD PAIN, hemoptosis Time Seen by Provider: 09/14/22 15:41 History of Present Illness HPI narrative: 56-year-old female presented the ED for evaluation of hematemesis. Patient has history of liver disease but is not on any blood thinners. Patient was recently seen for nausea and vomiting and was discharged. After getting home patient states that her symptoms worsened and patient called EMS for some chest pain. In route patient had significant hematemesis. EMS states patient had approximately 1 L of blood loss and patient had additional blood loss when she arrived in the emergency department room. Related Data Home Medications Medication Instructions Recorded Confirmed potassium chloride 10 mEq 10 meq PO DAILY 01/20/19 09/14/22 tablet,extended release furosemide 80 mg tablet 80 mg PO DAILY 04/06/19 09/14/22 pantoprazole 40 mg tablet,delayed 40 mg PO QAM 04/06/19 09/14/22 release rizatriptan 10 mg tablet 10 mg PO DAILY PRN Migraine 04/28/19 09/14/22 Headache spironolactone 100 mg tablet 100 mg PO DAILY 04/28/19 09/14/22 omega 9-exe-dle-fish oil 1,000 mg 1 cap PO DAILY 07/15/19 09/14/22 (120 mg-180 mg) capsule (Fish Oil) albuterol 90 mcg/actuation aerosol 180 mcg inhalation TID PRN dyspnea 08/19/20 09/14/22 inhaler amlodipine 5 mg tablet 5 mg PO DAILY 09/14/22 09/14/22 nortriptyline 10 mg capsule 10 mg PO DAILY 09/14/22 09/14/22 rifaximin 550 mg tablet (Xifaxan) 550 mg PO DAILY 09/14/22 09/14/22 Allergies Allergy/AdvReac Type Severity Reaction Status Date / Time fentanyl AdvReac Unknown N/V Verified 01/26/22 11:55 Review of Systems Review of Systems: All systems reviewed & are unremarkable except as noted in HPI and below PMFSH Past Medical History Medical History (Updated 09/14/22 @ 17:36 by Marychuy Landry PA-C) Anxiety Arthritis Asthma Cerebrovascular accident (10/2005) Chronic pain Previously on methadone but this was discontinued in June of 2018. Cirrhosis Status post TIPS. Followed at [facility]. Degenerative disc disease Depression Diet-controlled diabetes mellitus Essential hypertension Fibromyalgia On chronic pain medication Gastroesophageal reflux disease Gout Headaches due to old head injury Heart murmur Normal echocardiogram April 2017. Hyperlipemia Hypothyroidism Irritable bowel disease Kidney stones Obstructive sleep apnea Portal vein thrombosis On chronic anticoagulation with Coumadin Systemic lupus erythematosus Type 2 diabetes mellitus with diabetic polyneuropathy Surgical History Surgical History (Updated 09/14/22 @ 17:28 by Marychuy Landry PA-C) History of carpal tunnel surgery of right wrist History of section History of hysterectomy In her early to mid 30's due to fibrotic disease. History of laparoscopic cholecystectomy (07/2016) History of transjugular intrahepatic portosystemic shunt (2018) Family History Family History Mother Hypertension Breast cancer Cerebrovascular accident Coronary artery disease Father Cerebrovascular accident Coronary artery disease With [place] at 40 years old Social History Social History (Updated 09/14/22 @ 17:29 by Marychuy Landry PA-C) Social History: Surrogate medical decision maker: Tara Micheledel, sister. Code status: Full code. Smoking status: Never smoker Second hand tobacco smoke exposure: No Alcohol intake: never Substance use: never Substance use type: prescription drug Lack of Transportation: No Lack of Food: Sometimes True Current Housing: I Have Housing Concerned About Future Housing: No Difficulty Paying Gas/Electric Bills: No Difficulty Paying for Meds: No Currently Unemployed: No Education: Trade/Vocational Certificate Difficulty w/ Childcare or Family Care: No Living arrangements: alone Spiritual care concerns:
[2022-09-14] MEDS: SODIUM CHLORIDE 0.9% IV 1,000 ML 999 ML IV CONT ×2 (15:59→16:15)
[2022-09-14] MEDS: PANTOPRAZOLE SODIUM IV 40 MG VIAL 80 MG IV PUSH (15:59)
[2022-09-14] MEDS: ONDANSETRON INJ 4 MG/2 ML VIAL IV PUSH ×2 (16:00→22:53)
[2022-09-14] MEDS: OCTREOTIDE ACETATE 50 MCG/ML VIAL IV PUSH (16:05)
[2022-09-14] MEDS: TRANEXAMIC ACID 1,000 MG/10 ML AMPUL 1000 MG IV PUSH (16:14)
[2022-09-14] MEDS: TUBING, BLOOD SET 1 EACH XX ×2 (16:14→16:15)
[2022-09-14] MEDS: SODIUM CHLORIDE 0.9% IV 250 ML 30 ML IV CONT (16:14)
[2022-09-14 16:19] LABS: Basophils Percent Auto 0.3 % (0.2-1.2); Eosinophils Absolute Auto 0.1 K/mm3 (0-0.3); Eosinophils Percent Auto 0.6 % (0-4.4); Hematocrit 22.2 % (37.0-47.0); Immature Granulocyte Absolute 0.03 K/mm3 (0.00-0.031); Immature Granulocyte Percent A 0.3 % (0-0.5); Lymphocytes Absolute Auto 2.48 K/mm3 (0.9-3.2); Lymphocytes Percent Auto 25.3 % (18.3-44.2); Mean Corpuscular HGB Conc 29.7 g/dl (32-36); Mean Corpuscular Hemoglobin 24.8 pg (26-34); Mean Corpuscular Volume 83.5 fl (80-100); Mean Platelet Volume 10.7 fl (7.4-10.4); Monocytes Absolute Auto 0.9 K/mm3 (0.1-0.6); Monocytes Percent Auto 9.5 % (2.6-8.5); Neutrophils Absolute Auto 6.3 K/mm3 (1.3-6.7); Platelet Count Result 189 k/mm3 (150-375); Red Blood Count 2.66 M/mm3 (4.2-5.4); Red Cell Distribution Width 19.9 % (11.5-14.5); White Blood Count 9.8 K/mm3 (4.5-10.0)
[2022-09-14 16:24] LABS: INR 1.7; Prothrombin Time 21.6 Seconds (11.1-14.7)
[2022-09-14 16:25] LABS: Alanine Aminotransferase 29 U/L (6-35); Albumin Level 2.2 g/dL (3.5-5.1); Alkaline Phosphatase 76 U/L (38-126); Anion Gap 4 mmol/L (8-16); Aspartate Amino Transferase 57 U/L (14-36); Bilirubin,Total 1.3 mg/dL (0.2-1.3); Blood Urea Nitrogen 29 mg/dL (7-17); Calcium 7.7 mg/dL (8.4-10.2); Carbon Dioxide 25 mmol/L (22-30); Chloride 112 mmol/L (98-107); Estimated Glomerular Filt Rate > 60; Glucose 89 mg/dL (65-110); Lipase 112 U/L (23-300); Partial Thromboplastin Time 39.9 SECONDS (22.3-36.8); Sodium 141 mmol/L (137-145)
[2022-09-14 16:32] LABS: Hemoglobin 6.6 g/dL (12.0-15.0)
[2022-09-14 16:33] LABS: Hypochromasia 1+ (NORMAL); Ovalocytes 1+ (NORMAL); Platelet Estimate Adequate (Adequate); Schistocytes None Seen (NORMAL)
--- NOTE | 2022-09-14 16:39 | PC.NURSE ---
pt a&Ox4 pt cooperative and answers appropriate.
--- NOTE | 2022-09-14 16:43 | PC.NURSE ---
pt answering EPIDEMIOLOGIST questions A&Ox4
--- NOTE | 2022-09-14 16:46 | PC.NURSE ---
pt 2nd IV infiltrated.
[2022-09-14] MEDS: LACTATED RINGERS 1,000 ML 150 ML IV CONT ×2 (17:05→19:02)
--- NOTE | 2022-09-14 17:16 | PM.IMHP ---
H&P: HPI History of Present Illness Date/Time: 09/14/22 17:30 Chief Complaint: Hematemesis. Narrative: This is a very pleasant 56-year-old female with multiple medical problems including cirrhosis status post TIPS, hypertension, and diabetes who presented to the emergency department via EMS from home for evaluation of hematemesis. The patient provides the following history. She was seen in the ED early this morning for evaluation of nausea, vomiting, and lightheadedness which started yesterday afternoon. She felt better with supportive care and was discharged home. Several hours thereafter her nausea returned and she reports having multiple episodes of dark brown emesis followed by rosa blood. Shortly after vomiting she developed pain in the epigastric region that she has difficulties describing. She had 1 episode of dark stool prior to calling EMS. According to EMS she vomited nearly 1 L of rosa blood in route to the hospital and she had multiple such episodes thereafter. She was tachycardic and hypotensive was transfused 2 units of O-negative blood. She was also started on Protonix and octreotide given her history. She was taken to the GI lab per Dr. Del Cid and a Ruby-Vang tear was evident at the GI junction with stigmata of bleeding and intraluminal gastric blood was noted. She has since been admitted to the ICU for closer monitoring. At the time my evaluation she is feeling quite a bit better. She denies fever, chills, sweats, chest pain, pleuritic pain, and shortness of breath. Review of Systems Review of Systems: Reviewed and negative except for as per HPI. [facility] Past Medical History Medical History Anxiety Arthritis Asthma Cerebrovascular accident (10/2005) Chronic pain Previously on methadone but this was discontinued in June of 2018. Cirrhosis Status post TIPS. [facility] Degenerative disc disease Depression Diet-controlled diabetes mellitus Essential hypertension Fibromyalgia On chronic pain medication Gastroesophageal reflux disease Gout Headaches due to old head injury Heart murmur Normal echocardiogram April 2017. Hyperlipemia Hypertension Hypothyroidism Irritable bowel disease Kidney stones Obstructive sleep apnea Portal vein thrombosis On chronic anticoagulation with Coumadin Systemic lupus erythematosus Type 2 diabetes mellitus with diabetic polyneuropathy Surgical History Surgical History History of carpal tunnel surgery of right wrist History of section History of hysterectomy In her early to mid 30's due to fibrotic disease. History of laparoscopic cholecystectomy (07/2016) History of transjugular intrahepatic portosystemic shunt (2019) Family History Family History Mother Hypertension Breast cancer Cerebrovascular accident Coronary artery disease Father Cerebrovascular accident Coronary artery disease With [place] at 40 years old Social History Social History Social History: Surrogate medical decision maker: Tara Michelmonicaroney, sister. Code status: Full code. Smoking status: Never smoker Second hand tobacco smoke exposure: No Alcohol intake: never Substance use: never Substance use type: prescription drug Lack of Transportation: No Lack of Food: Sometimes True Current Housing: I Have Housing Concerned About Future Housing: No Difficulty Paying Gas/Electric Bills: No Difficulty Paying for Meds: No Currently Unemployed: No Education: Trade/Vocational Certificate Difficulty w/ Childcare or Family Care: No Living arrangements: alone Spiritual care concerns: No Meds Home Medications and Allergies Home Medications Medication Instructions Recorded Confirmed Type potassium ch
--- NOTE | 2022-09-14 17:19 | PC.NURSE ---
PT to GI lab.
--- NOTE | 2022-09-14 17:26 | WPDGICN ---
Assessment and Plan Assessment and plan (1) Acute upper gastrointestinal bleeding: Code(s): K92.2 - Gastrointestinal hemorrhage, unspecified Status: Acute Assessment and Plan: will proceed with urgent EGD differential includes ulcer, variceal bleeding, MWT, etc started on iv protonix and octreotide she will be admitted to ICU (2) Hematemesis of fresh blood: Code(s): K92.0 - Hematemesis Status: Acute Assessment and Plan: urgent egd anesthesia will intubate patient to protect airway (3) Cirrhosis: Code(s): K74.60 - Unspecified cirrhosis of liver Status: Acute Assessment and Plan: s/p tips at [facility] and previous history of PVT get abdominal ultrasound and repeat labs (4) Vomiting: Qualifiers: Nausea presence: with nausea Vomiting type: unspecified Qualified Code(s): R11.2 - Nausea with vomiting, unspecified Code(s): R11.10 - Vomiting, unspecified Status: Acute Assessment and Plan: antiemetics npo GI Consult Note Consult date/time: 09/14/22 17:26 Reason for consult: hematemesis, acute blood loss anemia HPI: Liv Delong is a 56 year old female with history of cirrhosis s/p TIPS after she was experiencing recurrent ascites seeing hepatology at [facility] (records reviewed), use of chronic narcotics. She came to ER initially with chest discomfort and nausea, she was released but came back just few hours ago after she started having intractable vomiting with rosa bright red blood/clots in emesis. She was tachycardic and hgb 6.6, plat 189, inr 1.7, bun 29, crat 0.6, bili 1.3. ER physician called me to get urgent EGD since she was unstable. She is getting right now fluids and just started to get 2 units of PRBC. Review of Systems Constitutional: Constitutional: Reports weakness Eyes: Eyes: Denies blurry vision ENT: Reports Normal hearing present Cardiovascular: Cardiovascular: Reports chest pain Respiratory: Respiratory: Reports cough Gastrointestinal: Gastrointestinal: Reports nausea, Reports vomiting and Reports hematemesis Genitourinary: Comments: h/o kidney stones Integumentary/Breasts: Skin/Breast: Denies rash PMFSH Past Medical History Medical History Adult hypothyroidism Anxiety Arthritis Asthma Breast cancer screening CHF (congestive heart failure) Normal echocardiogram April 2017 with EF of 60% with mild left atrial enlargement normal diastolic function Chronic pain Previously on methadone but this was discontinued in June of 2018. The patient is requesting narcotic medications while she is inpatient Cirrhosis Status post TIPS MANAGED BY DR. Bradford at [facility] Cirrhosis of liver with ascites CVA (cerebral vascular accident) October 2005 Degenerative disc disease Depression Diabetes 1.5, managed as type 2 Managed by diet with her last hemoglobin A1c in our system performed August 2018 was 4.7 Essential (primary) hypertension Essential hypertension Fibromyalgia On chronic pain medication GERD (gastroesophageal reflux disease) Gout Headaches due to old head injury Heart murmur Normal echocardiogram April 2017 Hyperlipidemia, unspecified Hypothyroidism IBS (irritable bowel syndrome) Kidney stones Left carpal tunnel syndrome ALAYNA (obstructive sleep apnea) Portal vein thrombosis On chronic anticoagulation with Coumadin SLE (systemic lupus erythematosus related syndrome) Type 2 diabetes mellitus with diabetic polyneuropathy Surgical History Surgical History H/O: hysterectomy In her early to mid 30's due to fibrotic disease without soft finger oophorectomy History of carpal tunnel surgery of right wrist History of laparoscopic cholecystectomy July 2016 Previous section 03/12/1983 once in 1987 S/P TIPS (transjugular intrahepatic portosystemic shunt) Late 2018 Fa
--- NOTE | 2022-09-14 17:46 | SUR.PHASEII ---
Patient Pre oped and recovered in procedure room 3.
--- NOTE | 2022-09-14 17:59 | SUR.PHASEII ---
See Anesthesia charting for blood vitals
--- NOTE | 2022-09-14 18:20 | PC.NURSE ---
Patient arrived via stretcher from GI lab without issue.
--- NOTE | 2022-09-14 19:00 | PC.NURSE ---
Physical assessment completed. Patient drowsy, oriented to person place and time. moves all extremities equally. Complains of back pain and nausea. No signs of emesis. Vitals stable.
--- NOTE | 2022-09-14 19:06 | SUR.OPER ---
Received report from ER nurse Barney. Patient had been started on the 2 units of blood that had been ordered when I had arrived to the ER to get patient. ER nurse traveled with myself and Dipika SAMUELS to GI Lab. As we were entering the GI Lab patient began vomiting blood and large red blood clots again. Patient promptly taken to procedure room where Dr. Ching and Dr. Negron were present. Procedure quickly explained and verbal consent received from patient so anesthesia could intubate and so EGD could begin. Once procedure was finished and patient was waking up, report was called to to ICU nurse Ej. Patient was then transferred to ICU.
[2022-09-14] MEDS: PANTOPRAZOLE SODIUM IV 80 MG in SODIUM CHLORIDE 0.9% IV 500 ML 50 MG IV CONT (20:09)
[2022-09-14 21:00] LABS: Hematocrit 29.7 % (37.0-47.0); Hemoglobin 9.1 g/dL (12.0-15.0)
[2022-09-14 21:25] LABS: Lactic Acid Reflex 4.8 mmol/L (0.7-2.0)
[2022-09-14] MEDS: MORPHINE SULFATE (*CRX) 2 MG/ML INJ IV PUSH (22:53)
[2022-09-14] MEDS: LACTATED RINGERS 1,000 ML 999 ML IV CONT (23:38)
[2022-09-14 23:58] LABS: Reflex Lactic Acid Yes or No Add Lactic
[2022-09-15] VITALS (33 sets, daily range): BP systolic 97–155; BP diastolic 36–82; PULSE 78–110; RESP 11–18; TEMP 36.7–36.9; O2SAT 99–100
[2022-09-15 02:05] LABS: Lactic Acid 4.8 mmol/L (0.7-2.0)
[2022-09-15] MEDS: LACTATED RINGERS 1,000 ML 75 ML IV CONT ×2 (02:18→21:02)
[2022-09-15 03:29] LABS: Mean Corpuscular HGB Conc 32.3 g/dl (32-36); Mean Corpuscular Hemoglobin 27.4 pg (26-34); Mean Corpuscular Volume 84.9 fl (80-100); Mean Platelet Volume 10.1 fl (7.4-10.4); Platelet Count Result 120 k/mm3 (150-375); Red Blood Count 2.19 M/mm3 (4.2-5.4); Red Cell Distribution Width 17.2 % (11.5-14.5); White Blood Count 13.2 K/mm3 (4.5-10.0)
[2022-09-15 03:42] LABS: Alanine Aminotransferase 25 U/L (6-35); Albumin Level 1.5 g/dL (3.5-5.1); Alkaline Phosphatase 58 U/L (38-126); Anion Gap -1 mmol/L (8-16); Aspartate Amino Transferase 39 U/L (14-36); Bilirubin,Total 1.2 mg/dL (0.2-1.3); Blood Urea Nitrogen 30 mg/dL (7-17); Calcium 6.9 mg/dL (8.4-10.2); Carbon Dioxide 23 mmol/L (22-30); Chloride 117 mmol/L (98-107); Estimated CRCL calculation 94 ml/min; Estimated Glomerular Filt Rate > 60; Glucose 103 mg/dL (65-110); Magnesium 1.7 mg/dL (1.6-2.3); Potassium 4.9 mmol/L (3.4-5.0); Sodium 139 mmol/L (137-145)
[2022-09-15 03:50] LABS: Hematocrit 18.6 % (37.0-47.0)
[2022-09-15] MEDS: ONDANSETRON INJ 4 MG/2 ML VIAL IV PUSH (05:24)
[2022-09-15] MEDS: SODIUM CHLORIDE 0.9% IV 250 ML 30 ML IV CONT ×2 (05:24→21:50)
[2022-09-15] MEDS: MORPHINE SULFATE (*CRX) 2 MG/ML INJ IV PUSH (08:37)
[2022-09-15] MEDS: PANTOPRAZOLE SODIUM IV 40 MG VIAL IV PUSH ×2 (09:02→21:02)
[2022-09-15] MEDS: CALCIUM GLUC 2,000 MG/NS 100ML 2,000 MG/100 ML BAG 100 MG IVPB (09:02)
--- NOTE | 2022-09-15 09:36 | WPDGIPROGNO ---
Progress Note: A&P Assessment and Plan (1) Ruby-Vang tear: Code(s): K22.6 - Gastro-esophageal laceration-hemorrhage syndrome Status: Acute Assessment and Plan: this was the cause of bleeding, treated with clips ok to switch to iv protonix bid, also on abx hgb dropped but no more hematemesis and she is feeling better blood transfusion to keep hgb>7 and keep monitoring ok to start liquid diet (2) Acute blood loss anemia: Code(s): D62 - Acute posthemorrhagic anemia Status: Acute Assessment and Plan: transfuse and trend h/h (3) Hematemesis of fresh blood: Code(s): K92.0 - Hematemesis Status: Acute Assessment and Plan: denies any more episodes (4) Lactic acidosis: Code(s): E87.20 - Acidosis, unspecified Status: Acute (5) Cirrhosis: Code(s): K74.60 - Unspecified cirrhosis of liver Status: Acute Assessment and Plan: s/p tips, it seems that etiology is FOX (denies alcohol) seeing hepatology at [facility] Subjective Date/time seen: 09/15/22 09:36 Interval history: she is feeling better, still some nausea but no more vomiting and abdominal pain has improved. She is thirsty EGD yesterday found MWT with stigmata of bleeding, treated with clips Review of Systems Review of Systems: All systems reviewed & are unremarkable except as noted in HPI and below Exam Const: Other: awake and alert, feeling better HENMT: Face/Nose/Sinus: Normal nares present Eyes: Sclera: sclerae normal Neck: Neck: supple Resp: Effort & Inspection: normal respiratory effort Cardio: Rate: regular rate GI: GI Palp: Yes Soft to palpation and Yes Tenderness to palpation present (GI) (mild ttp, no rebound) Auscultation: normal bowel sounds Skin: General skin exam: no rashes or lesions noted Neuro: Speech: normal speech Extrem: General: normal to inspection Psych: Mental Status: mental status grossly normal Objective Data Vital Signs Vital Signs: Vital Signs - 24 hr 09/14/22 15:45 09/14/22 16:06 09/14/22 16:08 Temperature 98.6 F 98.1 F 98.1 F Pulse Rate 92 88 87 Respiratory Rate 11 L 15 19 Blood Pressure 92/62 L 88/48 L 88/48 L Pulse Oximetry 93 100 97 Oxygen Delivery Room Air Oxygen Flow Rate 09/14/22 16:15 09/14/22 16:30 09/14/22 17:35 Temperature Pulse Rate 95 99 130 H Respiratory Rate 21 H 25 H 20 Blood Pressure 113/55 L 101/54 L Pulse Oximetry 100 100 100 Oxygen Delivery Simple Face Mask Oxygen Flow Rate 15 09/14/22 17:45 09/14/22 17:05 09/14/22 17:55 Temperature Pulse Rate 120 H 116 H 120 H Respiratory Rate 20 20 20 Blood Pressure 109/53 L 100/57 L 100/52 L Pulse Oximetry 100 100 100 Oxygen Delivery Room Air Room Air Room Air Oxygen Flow Rate 09/14/22 18:20 09/14/22 18:20 09/14/22 20:00 Temperature 98.1 F 98.1 F Pulse Rate 116 H 116 H 94 Respiratory Rate 20 20 16 Blood Pressure 93/47 L 93/47 L Pulse Oximetry 97 97 100 Oxygen Delivery Room Air Oxygen Flow Rate 09/14/22 20:00 09/14/22 20:00 09/14/22 22:00 Temperature Pulse Rate 89 87 94 Respiratory Rate 15 Blood Pressure 90/57 L Pulse Oximetry 100 Oxygen Delivery Oxygen Flow Rate 09/14/22 22:00 09/15/22 00:02 09/15/22 01:25 Temperature 98.3 F Pulse Rate 94 90 110 H Respiratory Rate 15 18 18 Blood Pressure 121/66 111/47 L 127/47 L Pulse Oximetry 100 100 100 Oxygen Delivery Oxygen Flow Rate 09/15/22 01:33 09/15/22 00:00 09/15/22 02:01 Temperature Pulse Rate 101 H 94 Respiratory Rate 13 14 Blood Pressure 97/63 L 119/49 L Pulse Oximetry 100 100 Oxygen Delivery Room Air Oxygen Flow Rate 09/15/22 00:00 09/15/22 02:00 09/15/22 05:19 Temperature 98.3 F Pulse Rate 87 94 90 Respiratory Rate 17 Blood Pressure 127/61 Pulse Oximetry 100 Oxygen Delivery Oxygen Flow Rate 09/15/22 04:00 09/15/22 05:35 09/15/22 04:01 Temperature 98.1 F Pulse Rate 8
--- NOTE | 2022-09-15 09:57 | WPDCNINT ---
Assessment and Plan Assessment and plan (1) Acute upper gastrointestinal bleeding: Code(s): K92.2 - Gastrointestinal hemorrhage, unspecified Status: Acute Assessment and Plan: Patient presented with acute upper GI bleeding She was initially started on Protonix and octreotide infusion as varices were suspect and patient was transfused 2 units of PRBC EGD showed Ruby-Vang tear with evidence of bleeding and intraluminal blood. Two clips were placed Hemoglobin this morning 6.0. Patient will be transfused 2 more units of PRBC Continue serial hemoglobin monitoring Continue IV PPI q.12 hours GI following Patient may need repeat EGD if hemoglobin continues to drop Start liquid diet as per GI recommendations Case discussed with GI IV Rocephin (2) Ruby-Vang tear: Code(s): K22.6 - Gastro-esophageal laceration-hemorrhage syndrome Status: Acute Assessment and Plan: See above (3) Acute blood loss anemia: Code(s): D62 - Acute posthemorrhagic anemia Status: Acute Assessment and Plan: See above (4) Cirrhosis: Code(s): K74.60 - Unspecified cirrhosis of liver Status: Acute Assessment and Plan: Abdominal ultrasound ordered and pending (5) Abdominal pain: Qualifiers: Abdominal location: right lower quadrant Qualified Code(s): R10.31 - Right lower quadrant pain Code(s): R10.9 - Unspecified abdominal pain Status: Inactive Assessment and Plan: Mild epigastric pain with epigastric tenderness likely secondary to Ruby-Vang tear lipase was normal Abdominal exam does not suggest significant ascites and patient has not had significant ascites since 2019 and has not required paracentesis. She is on empiric ceftriaxone which will be continued for now Ultrasound is pending (6) Back pain: Code(s): M54.9 - Dorsalgia, unspecified Status: Acute Assessment and Plan: Chronic musculoskeletal back pain P.r.n. pain control Heating pad Up in chair Plan DVT prophylaxis -SCDs Stress ulcer prophylaxis -PPI Nutrition -liquid diet Code Status - Full Code Family updated at bedside [employer] T[employer] Consult Note Consult date: 09/15/22 Reason for consult: Upper GI bleed HPI: Liv Delong is a 56 year old female with past medical history of cirrhosis status post tips, hypertension diabetes and depression presented to ER yesterday with chief complaint of vomiting blood. Patient was seen earlier in the morning in the ER with nausea vomiting but at that time no hematemesis was reported and patient's hemoglobin was stable and she was given IV fluids and discharged home patient return later in the afternoon vomiting fresh bright red blood. She states she had 2 bowel movements which were dark the day before and woke up with nausea and vomiting. She complained of mild epigastric abdominal pain which she rates at 2/10. No radiation no aggravating or relieving factors. She denied any diarrhea constipation. No fever chest pain shortness of breath dizziness or lightheaded. Review of system was positive for feeling weak and tired. In the ER patient was found to be having hemoglobin. Patient was started on octreotide and Protonix drip. She was transfused 2 units of PRBC and GI was consulted. Patient taken to GI lab and underwent EGD which showed Ruby-Vang tear with evidence of bleeding along with intraluminal gastric blood. Two resolution clips were placed. Postprocedure patient was admitted to ICU for further evaluation management. She has not had any nausea vomiting since coming to the ICU. She had 2 bowel movements which were dark overnight apart from that patient states that she now has back pain from laying in the bed and she feels her back is stiff and rates it at 6 to 7/10. All other systems were reviewed and were negative Review of Systems Review of Systems: All systems reviewed & are unremarkable except as noted in HPI a
--- NOTE | 2022-09-15 10:39 | PM.IMPN ---
Progress Note: A&P Assessment and Plan (1) Acute upper gastrointestinal bleeding: Code(s): K92.2 - Gastrointestinal hemorrhage, unspecified Status: Acute Assessment and Plan: Patient presented with acute upper GI bleeding She was initially started on Protonix and octreotide infusion as varices were suspect and patient was transfused 2 units of PRBC EGD showed Ruby-Vang tear with evidence of bleeding and intraluminal blood. Two clips were placed Hemoglobin this morning 6.0. Patient will be transfused 2 more units of PRBC Continue serial hemoglobin monitoring Continue IV PPI q.12 hours GI following Patient may need repeat EGD if hemoglobin continues to drop Start liquid diet as per GI recommendations Case discussed with GI IV Rocephin (2) Ruby-Vang tear: Code(s): K22.6 - Gastro-esophageal laceration-hemorrhage syndrome Status: Acute Assessment and Plan: See above (3) Acute blood loss anemia: Code(s): D62 - Acute posthemorrhagic anemia Status: Acute Assessment and Plan: See above (4) Cirrhosis: Code(s): K74.60 - Unspecified cirrhosis of liver Status: Acute Assessment and Plan: Abdominal ultrasound ordered and pending (5) Abdominal pain: Qualifiers: Abdominal location: right lower quadrant Qualified Code(s): R10.31 - Right lower quadrant pain Code(s): R10.9 - Unspecified abdominal pain Status: Inactive Assessment and Plan: Mild epigastric pain with epigastric tenderness likely secondary to Ruby-Vang tear lipase was normal Abdominal exam does not suggest significant ascites and patient has not had significant ascites since 2019 and has not required paracentesis. She is on empiric ceftriaxone which will be continued for now Ultrasound is pending (6) Back pain: Code(s): M54.9 - Dorsalgia, unspecified Status: Acute Assessment and Plan: Chronic musculoskeletal back pain P.r.n. pain control Heating pad Up in chair Plan DVT prophylaxis -SCDs Stress ulcer prophylaxis -PPI Nutrition -liquid diet Code Status - Full Code Family updated at bedside Subjective Date/time seen: 09/15/22 10:39 Interval history: Feeling a little bit better. EGD results studies Exam Narrative: General: Pt is alert awake and in NAD Lungs/Chest: Trachea central Clear BS B/L, No crackles or wheezing. Cardiac: RRR. Normal S1 S2. No murmurs Circulation: Pedal pulses are intact and symmetrical. Abdomen: Normal bowel sounds.. Soft. NT. ND. Mild tenderness in epigastric area Extremities: No clubbing, cyanosis or edema. Warm : Vo in place Neurologic: Follows commands. Moves all 4 extremities PERRL Skin: No Rash Objective Data Vital Signs Vital Signs: Vital Signs - 24 hr 09/14/22 15:45 09/14/22 16:06 09/14/22 16:08 Temperature 98.6 F 98.1 F 98.1 F Pulse Rate 92 88 87 Respiratory Rate 11 L 15 19 Blood Pressure 92/62 L 88/48 L 88/48 L Pulse Oximetry 93 100 97 Oxygen Delivery Room Air Oxygen Flow Rate 09/14/22 16:15 09/14/22 16:30 09/14/22 17:35 Temperature Pulse Rate 95 99 130 H Respiratory Rate 21 H 25 H 20 Blood Pressure 113/55 L 101/54 L Pulse Oximetry 100 100 100 Oxygen Delivery Simple Face Mask Oxygen Flow Rate 15 09/14/22 17:45 09/14/22 17:05 09/14/22 17:55 Temperature Pulse Rate 120 H 116 H 120 H Respiratory Rate 20 20 20 Blood Pressure 109/53 L 100/57 L 100/52 L Pulse Oximetry 100 100 100 Oxygen Delivery Room Air Room Air Room Air Oxygen Flow Rate 09/14/22 18:20 09/14/22 18:20 09/14/22 20:00 Temperature 98.1 F 98.1 F Pulse Rate 116 H 116 H 94 Respiratory Rate 20 20 16 Blood Pressure 93/47 L 93/47 L Pulse Oximetry 97 97 100 Oxygen Delivery Room Air Oxygen Flow Rate 09/14/22 20:00 09/14/22 20:00 09/14/22 22:00 Temperature Pulse Rate 89 87 94 Respiratory Rate 15 Blood Pressure 90/57 L Pulse Oximetry 100 Oxygen
[2022-09-15 13:11] LABS: Hematocrit 24.5 % (37.0-47.0); Hemoglobin 8.1 g/dL (12.0-15.0)
[2022-09-15] MEDS: ALBUMIN HUMAN 25% 25 GM/100 ML 100 ML IVPB ×3 (15:05→23:51)
[2022-09-15] MEDS: NORTRIPTYLINE HCL 10 MG CAPSULE PO (15:06)
[2022-09-15] MEDS: rifAXIMin 550 MG TABLET PO (15:06)
[2022-09-15] MEDS: CENTRAL LINE FLUSH 10 ML IV PUSH ×2 (15:07→21:02)
[2022-09-15 20:43] LABS: Hemoglobin 6.1 g/dL (12.0-15.0)
[2022-09-15 20:44] LABS: Hematocrit 18.6 % (37.0-47.0)
[2022-09-16] VITALS (26 sets, daily range): BP systolic 84–147; BP diastolic 42–85; PULSE 85–120; RESP 14–23; TEMP 36.6–37.7; O2SAT 92–100
[2022-09-16 05:22] LABS: Hematocrit 22.5 % (37.0-47.0); Hemoglobin 7.6 g/dL (12.0-15.0); Immature Platelet Fraction Pct 2.7 % (0.9-11.2); Mean Corpuscular HGB Conc 33.8 g/dl (32-36); Mean Corpuscular Hemoglobin 29.2 pg (26-34); Mean Corpuscular Volume 86.5 fl (80-100); Mean Platelet Volume 10.6 fl (7.4-10.4); Platelet Count Result 71 k/mm3 (150-375); White Blood Count 4.5 K/mm3 (4.5-10.0)
[2022-09-16 05:32] LABS: Alanine Aminotransferase 21 U/L (6-35); Albumin Level 2.2 g/dL (3.5-5.1); Alkaline Phosphatase 45 U/L (38-126); Anion Gap 2 mmol/L (8-16); Aspartate Amino Transferase 40 U/L (14-36); Bilirubin,Total 1.6 mg/dL (0.2-1.3); Blood Urea Nitrogen 24 mg/dL (7-17); Calcium 7.7 mg/dL (8.4-10.2); Carbon Dioxide 27 mmol/L (22-30); Chloride 112 mmol/L (98-107); Estimated CRCL calculation 94 ml/min; Estimated Glomerular Filt Rate > 60; Glucose 85 mg/dL (65-110); Magnesium 1.8 mg/dL (1.6-2.3); Sodium 141 mmol/L (137-145)
[2022-09-16] MEDS: ALBUMIN HUMAN 25% 25 GM/100 ML 100 ML IVPB (06:00)
[2022-09-16] MEDS: LEVOTHYROXINE SODIUM 125 MCG TABLET PO (06:23)
[2022-09-16] MEDS: CENTRAL LINE FLUSH 10 ML IV PUSH ×3 (06:23→20:56)
--- NOTE | 2022-09-16 07:00 | PC.NURSE ---
0600 and 0630 meds administered per Wilder Bourne RN. Verified by this nurse. MAR documentation did not save at that time.
[2022-09-16] MEDS: DEXTROSE 5%/0.45% SOD CHL 1,000 ML 50 ML IV CONT (08:21)
[2022-09-16] MEDS: PANTOPRAZOLE SODIUM IV 40 MG VIAL IV PUSH (08:22)
[2022-09-16] MEDS: NORTRIPTYLINE HCL 10 MG CAPSULE PO (08:22)
[2022-09-16] MEDS: ONDANSETRON INJ 4 MG/2 ML VIAL IV PUSH (08:22)
--- NOTE | 2022-09-16 09:26 | WPDINTPN ---
Progress Note: A&P Assessment and Plan (1) Acute upper gastrointestinal bleeding: Code(s): K92.2 - Gastrointestinal hemorrhage, unspecified Status: Acute Assessment and Plan: Patient presented with acute upper GI bleeding She was initially started on Protonix and octreotide infusion as varices were suspect and patient was transfused 2 units of PRBC EGD showed Ruby-Vang tear with evidence of bleeding and intraluminal blood. Two clips were placed 09/15 Hemoglobin this morning 6.0. Patient was transfused 2 more units of PRBC Later in the evening her hemoglobin again dropped to 6.1 and she received additional 2 units of PRBC Discussed with GI regarding possible repeat EGD. Continue serial hemoglobin monitoring Continue IV PPI q.12 hours Currently on liquid diet as per GI recommendations but will make her NPO for anticipated. Will discontinue iV Rocephin as patient had no varices on EGD and has no ascites on ultrasound (2) Hepatic encephalopathy: Code(s): K76.82 - Hepatic encephalopathy Status: Acute Assessment and Plan: Patient was drowsy this morning and I checked ammonia level and was 113 consistent with hepatic encephalopathy Will give lactulose enema x1 followed by p.o. lactulose and rifaximin (3) Ruby-Vang tear: Code(s): K22.6 - Gastro-esophageal laceration-hemorrhage syndrome Status: Acute Assessment and Plan: See above (4) Acute blood loss anemia: Code(s): D62 - Acute posthemorrhagic anemia Status: Acute Assessment and Plan: See above (5) Cirrhosis: Code(s): K74.60 - Unspecified cirrhosis of liver Status: Acute Assessment and Plan: Abdominal ultrasound reviewed and confirmed hepatic cirrhosis and status post cholecystectomy (6) Abdominal pain: Qualifiers: Abdominal location: right lower quadrant Qualified Code(s): R10.31 - Right lower quadrant pain Code(s): R10.9 - Unspecified abdominal pain Status: Inactive Assessment and Plan: Mild epigastric pain with epigastric tenderness likely secondary to Ruby-Vang tear lipase was normal Abdominal exam does not suggest significant ascites and patient has not had significant ascites since 2019 and has not required paracentesis. She is on empiric ceftriaxone which will be discontinued Ultrasound negative for any significant ascites (7) Back pain: Code(s): M54.9 - Dorsalgia, unspecified Status: Acute Assessment and Plan: Chronic musculoskeletal back pain P.r.n. pain control Heating pad Up in chair Plan DVT prophylaxis -SCDs Stress ulcer prophylaxis -PPI Nutrition -NPO Code Status - Full Code Subjective Date/time seen: 09/16/22 Patient dropped her hemoglobin again to 6.1 yesterday evening and required 2 units of PRBC transfusion. No vomiting or bowel movements with blood overnight. Vital signs have been stable. She appears more drowsy this morning. She opens her eyes on calling me his but not answer a lot of questions.. Review of systems unobtainable Review of Systems Review of Systems: All systems reviewed & are unremarkable except as noted in HPI and below (HPI) Exam Narrative: General: Pt is drowsy but arousable and in NAD Lungs/Chest: Trachea central Clear BS B/L, No crackles or wheezing. Cardiac: RRR. Normal S1 S2. No murmurs Circulation: Pedal pulses are intact and symmetrical. Abdomen: Normal bowel sounds.. Soft. NT. ND. Mild tenderness in epigastric area Extremities: No clubbing, cyanosis or edema. Warm : Vo in place Neurologic: Drowsy but arousable, follows commands. Moves all 4 extremities PERRL Skin: No Rash Objective Data Vital Signs Vital Signs: Vital Signs - 24 hr 09/15/22 10:00 09/15/22 10:20 09/15/22 11:20 Temperature 36.8 C 36.9 C 36.8 C Pulse Rate 89 88 84 Respiratory Rate 13 12 15 Blood Pressure 106/58 L 123/48 L 115/56 L Pulse Oximetry 100 100 100 Oxygen
[2022-09-16 10:38] LABS: Hematocrit 22.2 % (37.0-47.0); Hemoglobin 7.4 g/dL (12.0-15.0); Immature Platelet Fraction Pct 2.1 % (0.9-11.2); Mean Corpuscular HGB Conc 33.3 g/dl (32-36); Mean Corpuscular Hemoglobin 29.1 pg (26-34); Mean Corpuscular Volume 87.4 fl (80-100); Mean Platelet Volume 10.5 fl (7.4-10.4); Platelet Count Result 63 k/mm3 (150-375); Red Blood Count 2.54 M/mm3 (4.2-5.4); Red Cell Distribution Width 16.1 % (11.5-14.5)
[2022-09-16 10:43] LABS: Ammonia 113 umol/L (9-30)
[2022-09-16] MEDS: LACTULOSE ENEMA 200 GM/1,000 ML ENEMA RECTAL ×2 (11:45→17:00)
--- NOTE | 2022-09-16 12:14 | WPDGIPROGNO ---
Progress Note: A&P Assessment and Plan (1) Ruby-Vang tear: Code(s): K22.6 - Gastro-esophageal laceration-hemorrhage syndrome Status: Acute Assessment and Plan: this was the cause of bleeding, treated with clips but h/h still in low side despite blood transfusion case discussed with supervisor color paste mixing and will do EGD for second look in am in the meantime continue with iv protonix bid, also on abx no more signs of obvious bleeding (no hematemesis or more melena) (2) Acute blood loss anemia: Code(s): D62 - Acute posthemorrhagic anemia Status: Acute Assessment and Plan: transfuse and trend h/h (3) Hepatic encephalopathy: Code(s): K76.82 - Hepatic encephalopathy Status: Acute Assessment and Plan: ammonia high and on lactulose now it is not uncommon with cirrhosis after tips to develop encephalopathy medical management (4) Hematemesis of fresh blood: Code(s): K92.0 - Hematemesis Status: Acute Assessment and Plan: denies any more episodes (5) Lactic acidosis: Code(s): E87.20 - Acidosis, unspecified Status: Acute (6) Cirrhosis: Code(s): K74.60 - Unspecified cirrhosis of liver Status: Acute Assessment and Plan: s/p tips, it seems that etiology is FOX (denies alcohol) seeing hepatology at [facility] Subjective Date/time seen: 09/16/22 12:14 Interval history: today more drowsy and just received lactulose enema (she has not had BM yet and no report of melena by cleaning staff supervisor) however hgb did not go up much as expected since she got 2 more units of prbc Review of Systems Review of Systems: All systems reviewed & are unremarkable except as noted in HPI and below Exam Narrative: General: Pt is drowsy but arousable and in NAD Lungs/Chest: Trachea central Clear BS B/L, No crackles or wheezing. Cardiac: RRR. Normal S1 S2. No murmurs Circulation: Pedal pulses are intact and symmetrical. Abdomen: Normal bowel sounds.. Soft. NT. ND. Mild tenderness in epigastric area Extremities: No clubbing, cyanosis or edema. Warm : Vo in place Neurologic: Drowsy but arousable, follows commands. Moves all 4 extremities PERRL Skin: No Rash Objective Data Vital Signs Vital Signs: Vital Signs - 24 hr 09/15/22 14:00 09/15/22 14:00 09/15/22 16:00 Temperature Pulse Rate 88 88 88 Respiratory Rate 15 Blood Pressure 115/82 Pulse Oximetry 99 Oxygen Delivery 09/15/22 16:00 09/15/22 16:00 09/15/22 18:00 Temperature 98.0 F Pulse Rate 90 81 Respiratory Rate 15 Blood Pressure 129/50 L Pulse Oximetry 99 99 Oxygen Delivery Room Air 09/15/22 18:00 09/15/22 21:58 09/15/22 22:10 Temperature 98.2 F 98.2 F Pulse Rate 81 84 85 Respiratory Rate 12 16 16 Blood Pressure 155/62 H 124/54 L 138/50 L Pulse Oximetry 100 100 100 Oxygen Delivery 09/15/22 22:15 09/15/22 22:30 09/15/22 23:00 Temperature 98.1 F 98.2 F 98.4 F Pulse Rate 86 82 87 Respiratory Rate 16 14 18 Blood Pressure 125/46 L 110/44 L 125/45 L Pulse Oximetry 100 100 100 Oxygen Delivery 09/15/22 23:42 09/15/22 20:00 09/15/22 20:00 Temperature 98.0 F Pulse Rate 86 88 Respiratory Rate 16 Blood Pressure 100/47 L Pulse Oximetry 100 Oxygen Delivery Room Air 09/15/22 20:00 09/15/22 22:00 09/15/22 22:00 Temperature 98.2 F Pulse Rate 84 84 86 Respiratory Rate 16 16 Blood Pressure 124/52 L 110/44 L Pulse Oximetry 100 100 Oxygen Delivery 09/16/22 00:00 09/16/22 00:00 09/16/22 00:00 Temperature 98.3 F Pulse Rate 87 87 Respiratory Rate 16 Blood Pressure 118/52 L Pulse Oximetry 100 100 Oxygen Delivery Room Air 09/16/22 00:43 09/16/22 01:04 09/16/22 01:22 Temperature 98.4 F 98.4 F 98.4 F Pulse Rate 90 89 90 Respiratory Rate 16 14 18 Blood Pressure 118/52 L 138/62 103/85 Pulse Oximetry 100 100 100 Oxygen Delivery 09/16/22 02:00 09/16/22 02:00 09/16/22 02:22 Temperature 98.5 F Pulse
--- NOTE | 2022-09-16 13:10 | PM.IMPN ---
Progress Note: A&P Assessment and Plan (1) Acute upper gastrointestinal bleeding: Code(s): K92.2 - Gastrointestinal hemorrhage, unspecified Status: Acute Assessment and Plan: Patient presented with acute upper GI bleeding She was initially started on Protonix and octreotide infusion as varices were suspect and patient was transfused 2 units of PRBC EGD showed Ruby-Vang tear with evidence of bleeding and intraluminal blood. Two clips were placed 09/15 Hemoglobin this morning 6.0. Patient was transfused 2 more units of PRBC Later in the evening her hemoglobin again dropped to 6.1 and she received additional 2 units of PRBC Discussed with GI regarding possible repeat EGD. Continue serial hemoglobin monitoring Continue IV PPI q.12 hours Currently on liquid diet as per GI recommendations but will make her NPO for anticipated. Will discontinue iV Rocephin as patient had no varices on EGD and has no ascites on ultrasound (2) Hepatic encephalopathy: Code(s): K76.82 - Hepatic encephalopathy Status: Acute Assessment and Plan: Patient was drowsy this morning and I checked ammonia level and was 113 consistent with hepatic encephalopathy Will give lactulose enema x1 followed by p.o. lactulose and rifaximin (3) Ruby-Vang tear: Code(s): K22.6 - Gastro-esophageal laceration-hemorrhage syndrome Status: Acute Assessment and Plan: See above (4) Acute blood loss anemia: Code(s): D62 - Acute posthemorrhagic anemia Status: Acute Assessment and Plan: See above (5) Cirrhosis: Code(s): K74.60 - Unspecified cirrhosis of liver Status: Acute Assessment and Plan: Abdominal ultrasound reviewed and confirmed hepatic cirrhosis and status post cholecystectomy (6) Abdominal pain: Qualifiers: Abdominal location: right lower quadrant Qualified Code(s): R10.31 - Right lower quadrant pain Code(s): R10.9 - Unspecified abdominal pain Status: Inactive Assessment and Plan: Mild epigastric pain with epigastric tenderness likely secondary to Ruby-Vang tear lipase was normal Abdominal exam does not suggest significant ascites and patient has not had significant ascites since 2019 and has not required paracentesis. She is on empiric ceftriaxone which will be discontinued Ultrasound negative for any significant ascites (7) Back pain: Code(s): M54.9 - Dorsalgia, unspecified Status: Acute Assessment and Plan: Chronic musculoskeletal back pain P.r.n. pain control Heating pad Up in chair Plan DVT prophylaxis -SCDs Stress ulcer prophylaxis -PPI Nutrition -NPO Code Status - Full Code Subjective Date/time seen: 09/16/22 13:10 Interval history: Labs noted, no new complaints today Exam Narrative: General: Pt is drowsy but arousable and in NAD Lungs/Chest: Trachea central Clear BS B/L, No crackles or wheezing. Cardiac: RRR. Normal S1 S2. No murmurs Circulation: Pedal pulses are intact and symmetrical. Abdomen: Normal bowel sounds.. Soft. NT. ND. Mild tenderness in epigastric area Extremities: No clubbing, cyanosis or edema. Warm : Vo in place Neurologic: Drowsy but arousable, follows commands. Moves all 4 extremities PERRL Skin: No Rash Objective Data Vital Signs Vital Signs: Vital Signs - 24 hr 09/15/22 14:00 09/15/22 14:00 09/15/22 16:00 Temperature Pulse Rate 88 88 88 Respiratory Rate 15 Blood Pressure 115/82 Pulse Oximetry 99 Oxygen Delivery 09/15/22 16:00 09/15/22 16:00 09/15/22 18:00 Temperature 98.0 F Pulse Rate 90 81 Respiratory Rate 15 Blood Pressure 129/50 L Pulse Oximetry 99 99 Oxygen Delivery Room Air 09/15/22 18:00 09/15/22 21:58 09/15/22 22:10 Temperature 98.2 F 98.2 F Pulse Rate 81 84 85 Respiratory Rate 12 16 16 Blood Pressure 155/62 H 124/54 L 138/50 L Pulse Oximetry 100 100 100 Oxygen Delivery 09/15/22 22:15 0
[2022-09-16] MEDS: LACTULOSE 20 GM/30 ML UDC PO (13:11)
[2022-09-16] MEDS: SODIUM CHLORIDE 0.9% IV 250 ML 30 ML IV CONT (16:58)
[2022-09-16] MEDS: PANTOPRAZOLE SODIUM IV 80 MG in SODIUM CHLORIDE 0.9% IV 500 ML 50 MG IV CONT (16:59)
[2022-09-16] MEDS: SODIUM CHLORIDE 0.9% IV 1,000 ML 999 ML IV CONT (16:59)
--- NOTE | 2022-09-16 18:00 | PC.NURSE ---
Attempted NG placement per order due to hematemesis. Patient confused and fighting staff while actively vomiting bright red blood with clots. Significant resistance felt when NG advanced to 20 cm jordan. NG attempts abandoned at this time. Dr. eMnon and Dr. Del Cid updated. Orders for blood products received. Patient to have EGD in the AM
[2022-09-16 22:19] LABS: Hematocrit 24.6 % (37.0-47.0); Hemoglobin 8.5 g/dL (12.0-15.0); Immature Platelet Fraction Pct 2.8 % (0.9-11.2); Mean Corpuscular HGB Conc 34.6 g/dl (32-36); Mean Corpuscular Hemoglobin 30.6 pg (26-34); Mean Corpuscular Volume 88.5 fl (80-100); Mean Platelet Volume 10.3 fl (7.4-10.4); Platelet Count Result 90 k/mm3 (150-375); Red Blood Count 2.78 M/mm3 (4.2-5.4); Red Cell Distribution Width 15.3 % (11.5-14.5); White Blood Count 9.2 K/mm3 (4.5-10.0)
--- NOTE | 2022-09-16 22:24 | PC.NURSE ---
2200 large bloody liquid stool noted. Cammie care provided. Tolerated fair
[2022-09-16 22:29] LABS: INR 2.2; Prothrombin Time 25.8 Seconds (11.1-14.7)
[2022-09-16 22:34] LABS: Fibrinogen 72 mg/dl (215-510)
[2022-09-17] VITALS (37 sets, daily range): BP systolic 99–152; BP diastolic 43–120; PULSE 89–130; RESP 12–25; TEMP 36.8–37.7; O2SAT 99–100
[2022-09-17] MEDS: MORPHINE SULFATE (*CRX) 2 MG/ML INJ IV PUSH (01:29)
[2022-09-17 04:58] LABS: Mean Corpuscular HGB Conc 33.8 g/dl (32-36); Mean Corpuscular Hemoglobin 30.1 pg (26-34); Platelet Count Result 94 k/mm3 (150-375); Red Blood Count 2.19 M/mm3 (4.2-5.4); Red Cell Distribution Width 15.6 % (11.5-14.5); White Blood Count 10.8 K/mm3 (4.5-10.0)
[2022-09-17 05:00] LABS: Hematocrit 19.5 % (37.0-47.0); Hemoglobin 6.6 g/dL (12.0-15.0)
[2022-09-17 05:08] LABS: Alanine Aminotransferase 20 U/L (6-35); Albumin Level 1.5 g/dL (3.5-5.1); Alkaline Phosphatase 34 U/L (38-126); Ammonia 56 umol/L (9-30); Anion Gap 0 mmol/L (8-16); Aspartate Amino Transferase 37 U/L (14-36); Bilirubin,Total 1.7 mg/dL (0.2-1.3); Blood Urea Nitrogen 24 mg/dL (7-17); Calcium 6.8 mg/dL (8.4-10.2); Carbon Dioxide 24 mmol/L (22-30); Chloride 118 mmol/L (98-107); Estimated CRCL calculation 85 ml/min; Estimated Glomerular Filt Rate > 60; Glucose 97 mg/dL (65-110); Magnesium 1.7 mg/dL (1.6-2.3); Sodium 142 mmol/L (137-145)
[2022-09-17] MEDS: CENTRAL LINE FLUSH 10 ML IV PUSH ×3 (06:24→13:13)
[2022-09-17] MEDS: ACETAMINOPHEN 325 MG TABLET 650 MG PO (07:40)
[2022-09-17] MEDS: LACTULOSE 20 GM/30 ML UDC PO (08:02)
[2022-09-17] MEDS: rifAXIMin 550 MG TABLET PO (08:02)
[2022-09-17] MEDS: NORTRIPTYLINE HCL 10 MG CAPSULE PO (08:02)
[2022-09-17] MEDS: SODIUM CHLORIDE 0.9% IV 250 ML 30 ML IV CONT ×3 (08:03→15:12)
[2022-09-17] MEDS: PHYTONADIONE INJ 10 MG/ML AMP SUB-Q (08:04)
[2022-09-17] MEDS: CALCIUM GLUC 2,000 MG/NS 100ML 2,000 MG/100 ML BAG 100 MG IVPB (08:05)
--- NOTE | 2022-09-17 09:36 | WPDINTPN ---
Progress Note: A&P Assessment and Plan (1) Acute upper gastrointestinal bleeding: Code(s): K92.2 - Gastrointestinal hemorrhage, unspecified Status: Acute Assessment and Plan: Patient presented with acute upper GI bleeding She was initially started on Protonix and octreotide infusion as varices were suspect and patient was transfused 2 units of PRBC EGD showed Ruby-Vagn tear with evidence of bleeding and intraluminal blood. Two clips were placed Since then patient continues to lose hemoglobin and bleed 09/15 Hemoglobin this morning 6.0. Patient was transfused 2 more units of PRBC Later in the evening her hemoglobin again dropped to 6.1 and she received additional 2 units of PRBC 09/16 2 units of PRBC transfused. I spoke to Dr. Negron regarding repeating EGD. Patient was switched to Protonix drip 09/17 hemoglobin 6.6 will transfuse 2 more units of PRBC 2 units of FFP and 1 unit of platelets. IV calcium ordered. Vitamin K subQ ordered. GI plans to repeat EGD today. Will consider transferring to [facility] depending on EGD results Continue serial hemoglobin monitoring Continue PPI drip NPO (2) Hepatic encephalopathy: Code(s): K76.82 - Hepatic encephalopathy Status: Acute Assessment and Plan: Yesterday her ammonia level was 113 consistent with hepatic encephalopathy And was given lactulose enema x2 Ammonia level improved and patient is more awake today although still confused Continue lactulose and rifaximin (3) Ruby-Vang tear: Code(s): K22.6 - Gastro-esophageal laceration-hemorrhage syndrome Status: Acute Assessment and Plan: See above (4) Acute blood loss anemia: Code(s): D62 - Acute posthemorrhagic anemia Status: Acute Assessment and Plan: See above (5) Cirrhosis: Code(s): K74.60 - Unspecified cirrhosis of liver Status: Acute Assessment and Plan: Abdominal ultrasound reviewed and confirmed hepatic cirrhosis and status post cholecystectomy (6) Abdominal pain: Qualifiers: Abdominal location: right lower quadrant Qualified Code(s): R10.31 - Right lower quadrant pain Code(s): R10.9 - Unspecified abdominal pain Status: Inactive Assessment and Plan: Mild epigastric pain with epigastric tenderness likely secondary to Ruby-Vang tear lipase was normal Abdominal exam does not suggest significant ascites and patient has not had significant ascites since 2019 and has not required paracentesis. She is on empiric ceftriaxone at this time Ultrasound negative for any significant ascites (7) Back pain: Code(s): M54.9 - Dorsalgia, unspecified Status: Acute Assessment and Plan: Chronic musculoskeletal back pain P.r.n. pain control (8) Venous insufficiency: Code(s): I87.2 - Venous insufficiency (chronic) (peripheral) Status: Acute Assessment and Plan: Patient has a PICC line in right upper extremity which is not working properly. Chest x-ray was done which showed coiling. Plan to place a PICC line on the left side and remove the right PICC line Plan DVT prophylaxis -SCDs Stress ulcer prophylaxis -PPI Nutrition -NPO Code Status - Full Code Subjective Date/time seen: 09/17/22 Patient much more awake this morning but still confused. When asked if she was having pain she said yes but could not give any further details. She moves all 4 extremities but would not follow commands consistently. She did noted yes to asking if she has back pain. She had episodes of vomiting with blood yesterday evening and then had bowel movements which were dark. Was transfuse 2 units of PRBC overnight and then again her hemoglobin this morning was 6.6 and 2 units of PRBC additional ordered. She did receive 2 lactulose enemas leading to improvement in her ammonia level this morning. Nursing staff try to place NG tube yesterday evening but were unable
[2022-09-17] MEDS: PANTOPRAZOLE SODIUM IV 80 MG in SODIUM CHLORIDE 0.9% IV 500 ML 50 MG IV CONT (10:32)
[2022-09-17] MEDS: LACTATED RINGERS 1,000 ML 100 ML IV CONT (11:55)
--- NOTE | 2022-09-17 11:55 | PM.IMPN ---
Progress Note: A&P Assessment and Plan (1) Acute upper gastrointestinal bleeding: Code(s): K92.2 - Gastrointestinal hemorrhage, unspecified Status: Acute Assessment and Plan: Patient presented with acute upper GI bleeding GI plans to repeat EGD today. Will consider transferring to [facility] depending on EGD results Continue serial hemoglobin monitoring Continue PPI drip NPO (2) Hepatic encephalopathy: Code(s): K76.82 - Hepatic encephalopathy Status: Acute Assessment and Plan: Still confused. Continue lactulose and rifaximin (3) Ruby-Vang tear: Code(s): K22.6 - Gastro-esophageal laceration-hemorrhage syndrome Status: Acute Assessment and Plan: See above (4) Acute blood loss anemia: Code(s): D62 - Acute posthemorrhagic anemia Status: Acute Assessment and Plan: See above (5) Cirrhosis: Code(s): K74.60 - Unspecified cirrhosis of liver Status: Acute Assessment and Plan: Abdominal ultrasound reviewed and confirmed hepatic cirrhosis and status post cholecystectomy (6) Abdominal pain: Qualifiers: Abdominal location: right lower quadrant Qualified Code(s): R10.31 - Right lower quadrant pain Code(s): R10.9 - Unspecified abdominal pain Status: Inactive Assessment and Plan: Monitor, see plan above. (7) Back pain: Code(s): M54.9 - Dorsalgia, unspecified Status: Acute Assessment and Plan: Chronic musculoskeletal back pain P.r.n. pain control (8) Venous insufficiency: Code(s): I87.2 - Venous insufficiency (chronic) (peripheral) Status: Acute Subjective Date/time seen: 09/17/22 11:55 Interval history: No complaints Exam Narrative: General: Pt is awake but confused Lungs/Chest: Trachea central Clear BS B/L, No crackles or wheezing. Cardiac: RRR. Normal S1 S2. No murmurs Circulation: Pedal pulses are intact and symmetrical. Abdomen: Normal bowel sounds.. Soft. NT. ND. Mild diffuse tenderness in abdomen Extremities: No clubbing, cyanosis or edema. Warm : Vo in place Neurologic: Awake but confused follows commands only intermittently. Moves all 4 extremities spontaneous PERRL Skin: No Rash Objective Data Vital Signs Vital Signs: Vital Signs - 24 hr 09/16/22 12:00 09/16/22 12:00 09/16/22 12:00 Temperature 98.2 F Pulse Rate 95 95 95 Respiratory Rate 23 H 23 H Blood Pressure 133/75 Pulse Oximetry 98 98 Oxygen Delivery Room Air 09/16/22 14:00 09/16/22 14:00 09/16/22 16:00 Temperature 97.8 F Pulse Rate 91 89 93 Respiratory Rate 17 20 Blood Pressure 142/67 H Pulse Oximetry 100 92 Oxygen Delivery Room Air 09/16/22 16:00 09/16/22 16:00 09/16/22 16:30 Temperature 98.3 F Pulse Rate 93 93 120 H Respiratory Rate 20 17 Blood Pressure 84/42 L 100/56 L Pulse Oximetry 92 96 Oxygen Delivery 09/16/22 17:03 09/16/22 18:00 09/16/22 18:00 Temperature 98.5 F 99.2 F Pulse Rate 115 H 101 H 101 H Respiratory Rate 15 19 Blood Pressure 105/69 113/65 Pulse Oximetry 97 100 Oxygen Delivery 09/16/22 17:18 09/16/22 18:18 09/16/22 18:35 Temperature 98.6 F 99.2 F 99.2 F Pulse Rate 112 H 95 98 Respiratory Rate 15 18 17 Blood Pressure 122/52 L 113/65 144/49 H Pulse Oximetry 100 100 100 Oxygen Delivery 09/16/22 18:44 09/16/22 20:00 09/16/22 20:00 Temperature 99.2 F 99.5 F Pulse Rate 94 95 95 Respiratory Rate 18 16 Blood Pressure 144/49 H 131/65 Pulse Oximetry 99 99 Oxygen Delivery 09/16/22 20:00 09/16/22 22:00 09/16/22 22:00 Temperature 99.9 F H Pulse Rate 94 95 Respiratory Rate 22 H Blood Pressure 129/46 L Pulse Oximetry 99 99 Oxygen Delivery Room Air 09/16/22 18:59 09/16/22 19:59 09/16/22 20:59 Temperature 99.4 F 99.5 F 99.6 F Pulse Rate 91 94 96 Respiratory Rate 16 16 20 Blood Pressure 131/65 141/61 H 147/62 H Pulse Oximetry 100 100
--- NOTE | 2022-09-17 12:09 | WPDANESEPPF ---
Anes - Initial Pre Proc Eval Procedure: Operation Date: 09/14/22 16:30 Proposed Procedures p Esophagogastroduodenoscopy - Randall Del Cid MD Operation Date: 09/17/22 13:00 Proposed Procedures p Esophagogastroduodenoscopy - Randall Del Cid MD Date/Time: 09/17/22 12:09 Surgeon: Tylor Yun MD Pre Op Diagnosis: upper gi bleed, acute blood loss, anemia Patient Data Age: 56 Gender: F Height: 1.68 m Weight: 112.7 kg Last Vital Signs Temp 99.2 F 09/17/22 10:43 Pulse 100 09/17/22 10:43 Resp 24 H 09/17/22 10:43 BP 139/43 L 09/17/22 10:43 Pulse Ox 99 09/17/22 10:43 O2 Del Method Room Air 09/17/22 08:00 O2 Flow Rate 15 09/14/22 17:35 Allergies Allergy/AdvReac Type Severity Reaction Status Date / Time fentanyl AdvReac Unknown N/V Verified 01/26/22 11:55 Home Medications Medication Instructions Recorded Confirmed Type potassium chloride 10 mEq 10 meq PO DAILY 01/20/19 09/14/22 History tablet,extended release furosemide 80 mg tablet 80 mg PO DAILY 04/06/19 09/14/22 History pantoprazole 40 mg tablet,delayed 40 mg PO QAM 04/06/19 09/14/22 History release rizatriptan 10 mg tablet 10 mg PO DAILY PRN Migraine 04/28/19 09/14/22 History Headache spironolactone 100 mg tablet 100 mg PO DAILY 04/28/19 09/14/22 History omega 1-eic-fxe-fish oil 1,000 mg 1 cap PO DAILY 07/15/19 09/14/22 History (120 mg-180 mg) capsule (Fish Oil) levothyroxine 125 mcg tablet See Rx Instructions .Route 05/26/20 09/14/22 Rx .COMPLEX #30 tabs albuterol 90 mcg/actuation aerosol 180 mcg inhalation TID PRN dyspnea 08/19/20 09/14/22 History inhaler cyclobenzaprine 10 mg tablet 10 mg PO TID PRN muscle spasm #20 02/01/22 07/15/23 Rx tabs promethazine 25 mg tablet 25 mg PO TID PRN nausea and 06/05/21 09/14/22 Rx vomiting #10 tabs tamsulosin 0.4 mg capsule (Flomax) 0.4 mg PO DAILY #14 caps 06/05/21 09/14/22 Rx amlodipine 5 mg tablet 5 mg PO DAILY 09/14/22 09/14/22 History nortriptyline 10 mg capsule 10 mg PO DAILY 09/14/22 09/14/22 History ondansetron 4 mg disintegrating 4 mg PO Q6-8H PRN nausea and 09/14/22 09/14/22 Rx tablet vomiting #14 tabs rifaximin 550 mg tablet (Xifaxan) 550 mg PO DAILY 09/14/22 09/14/22 History Laboratory Tests 09/14/22 09/16/22 09/17/22 16:01 22:08 04:43 WBC 9.2 K/mm3 10.8 H K/mm3 (4.5-10.0) (4.5-10.0) RBC 2.78 L M/mm3 2.19 L M/mm3 (4.2-5.4) (4.2-5.4) Hgb 8.5 L g/dL 6.6 L* g/dL (12.0-15.0) (12.0-15.0) Hct 24.6 L % 19.5 L* % (37.0-47.0) (37.0-47.0) MCV 88.5 fl 89.0 fl (80-100) (80-100) MCH 30.6 D pg 30.1 pg (26-34) (26-34) MCHC 34.6 g/dl 33.8 g/dl (32-36) (32-36) RDW 15.3 H % 15.6 H % (11.5-14.5) (11.5-14.5) Plt Count 90 L k/mm3 94 L k/mm3 (150-375) (150-375) MPV 10.3 fl 11.0 H fl (7.4-10.4) (7.4-10.4) % Immature Plt Fraction 2.8 % 4.0 % (0.9-11.2) (0.9-11.2) PT 25.8 H Seconds (11.1-14.7) INR 2.2 APTT 43.0 H SECONDS (22.3-36.8) Fibrinogen 72 L mg/dl (215-510) Sodium 142 mmol/L (137-145) Potassium 4.0 mmol/L (3.4-5.0) Chloride 118 H mmol/L (98-107) Carbon Dioxide 24 mmol/L (22-30) Anion Gap 0 L mmol/L (8-16) BUN 24 H mg/dL (7-17) Creatinine 0.80 mg/dL (0.7-1.0) Estim Creat Clear Calc 85 ml/min Estimated GFR > 60 (59 - ) Glucose 97 mg/dL (65-110) Calcium 6.8 L mg/dL (8.4-10.2) Magnesium 1.7 mg/dL (1.6-2.3) Total Bilirubin 1.7 H mg/dL (0.2-1.3) AST 37 H U/L (14-36) ALT 20 U/L (6-35) Alkaline Phosphatase 34 L U/L (38-126) Ammonia 56 H umol/L (9-30) Total Protein 3.0 L g/dL (6.3-8.2) Albumin 1.5 L g/dL (3.5-5.1) Blood Type A Positive
[2022-09-17] MEDS: EPINEPHrine INJ 1 MG/10 ML SYRINGE 6 MG XX (12:26)
--- NOTE | 2022-09-17 12:59 | P.PNCROSS_ITS ---
Event Note Event Note Event Note: Patient went back for repeat EGD which showed signs of ongoing bleeding from Ma llory-Vang tear and intraluminal blood. Five more clips were placed along with epinephrine injection to control bleeding. No varices were seen patient is on PPI drip and GI physician started octreotide infusion. We discussed and recommended transfer to tertiary hospital in case patient needs surgical or intervention Radiology intervention. Patient was left on mechanical ventilation due to her altered mental status from hepatic encephalopathy, ongoing GI bleed and potential transfer to tertiary facility the. Patient is now back in ICU on mechanical ventilation. I will check chest x-ray KUB. Ventilator settings and orders placed. Will check ABG. Patient received 2 units of PRBC and 2 units of FFP. Platelet transfusion is pending. Will repeat CBC and coags post transfusion. 1 L IV fluid bolus ordered. Sedation ordered. Will start trickle tube feeds. Called and spoke to Dr. Pierre at [facility] who was accepted the patient. Patient will be transferred once bed is available.
[2022-09-17] MEDS: SODIUM CHLORIDE 0.9% IV 1,000 ML 999 ML IV CONT (13:10)
[2022-09-17] MEDS: MIDAZOLAM 100MG/NS 100ML(*CRX) 100 MG/100 ML BAG IV CONT (13:11)
[2022-09-17] MEDS: LACTULOSE 20 GM/30 ML UDC FEED TUBE ×2 (13:12→18:44)
[2022-09-17] MEDS: SODIUM CHLORIDE 0.9% IV 250 ML 30 ML (13:12)
[2022-09-17 13:35] LABS: Alveolar/Arterial O2 Gradient 161.1 mmHg; Fractional Inspired Oxygen 50 %; HCO3 ABG 21.4 mEq/l (22.0-26.0); Oxygen Content ABG 7.7 %vol (16.0-22.0); Oxygen Saturation ABG 99.4 % (95.0-100.0); Oxyhemoglobin 95.5 % THb (90.0-100.0); PCO2 ABG 24.8 mmHg (35.0-45.0); PO2 ABG 167.5 mmHg (80.0-100.0); PO2 FiO2 Ratio Arterial Blood 3.35 %
[2022-09-17 13:38] LABS: Device VENTILATOR; Modified Allen's Test Pass; Site Drawn LEFT RADIAL; Total Hemoglobin 5.4 g/dL (12.0-18.0); pH ABG 7.553 (7.350-7.450)
[2022-09-17 13:39] LABS: Arterial Blood Gas PEEP 5 cmH2O; Arterial Blood Gas Tidal Volume 450 ml; Arterial Blood Gas Vent Mode CMV; Arterial Blood Gas Ventilator rate 20 /MIN
[2022-09-17 14:20] LABS: Mean Corpuscular HGB Conc 32.9 g/dl (32-36); Mean Corpuscular Hemoglobin 28.9 pg (26-34); Mean Corpuscular Volume 87.7 fl (80-100); Mean Platelet Volume 10.4 fl (7.4-10.4); Platelet Count Result 108 k/mm3 (150-375); Red Blood Count 1.87 M/mm3 (4.2-5.4); Red Cell Distribution Width 15.9 % (11.5-14.5); White Blood Count 8.2 K/mm3 (4.5-10.0)
[2022-09-17 14:26] LABS: Hemoglobin 5.4 g/dL (12.0-15.0)
[2022-09-17 14:27] LABS: Hematocrit 16.4 % (37.0-47.0)
[2022-09-17 14:31] LABS: Prothrombin Time 24.4 Seconds (11.1-14.7)
[2022-09-17 14:38] LABS: Fibrinogen 100 mg/dl (215-510)
[2022-09-17 20:25] LABS: Basophils Absolute Auto 0.1 K/mm3 (0.0-0.1); Basophils Percent Auto 0.6 % (0.2-1.2); Eosinophils Absolute Auto 0.3 K/mm3 (0-0.3); Eosinophils Percent Auto 3.4 % (0-4.4); Immature Granulocyte Absolute 0.03 K/mm3 (0.00-0.031); Immature Granulocyte Percent A 0.3 % (0-0.5); Lymphocytes Absolute Auto 2.09 K/mm3 (0.9-3.2); Lymphocytes Percent Auto 24.3 % (18.3-44.2); Mean Corpuscular HGB Conc 33.3 g/dl (32-36); Mean Platelet Volume 9.9 fl (7.4-10.4); Monocytes Percent Auto 11.3 % (2.6-8.5); Neutrophils Absolute Auto 5.2 K/mm3 (1.3-6.7); Neutrophils Percent Auto 60.1 % (45.5-73.1); Nucleated Red Blood Cells Perc 0.2 % (0.0-0.2); Platelet Count Result 119 k/mm3 (150-375); Red Cell Distribution Width 16.5 % (11.5-14.5); White Blood Count 8.6 K/mm3 (4.5-10.0)
--- NOTE | 2022-09-17 20:27 | PC.NURSE ---
2000 Report called to Teri SAMUELS at [facility]. Preparing for transport.
[2022-09-17 20:36] LABS: INR 1.5; Prothrombin Time 19.3 Seconds (11.1-14.7)
[2022-09-17 20:37] LABS: Partial Thromboplastin Time 39.9 SECONDS (22.3-36.8)
[2022-09-17 20:43] LABS: Fibrinogen 141 mg/dl (215-510)
[2022-09-17 20:47] LABS: Hematocrit 18.6 % (37.0-47.0); Hemoglobin 6.2 g/dL (12.0-15.0)
[2022-09-17] MEDS: MINERAL OIL/WHITE PETROLATUM OINTMENT 1 APPLIC EACH EYE (20:55)
--- NOTE | 2022-09-17 21:15 | PC.NURSE ---
2109 Dr Menon updated with labs. Orders received
--- NOTE | 2022-09-17 22:18 | PC.NURSE ---
pt transferred to [facility] via [facility] on vent with PRBC transfusing
--- NOTE | 2022-09-17 22:20 | PC.NURSE ---
Pt left via EMS with RN escort to [facility]. Most recent unit of blood running and not yet transfused. TAR documentation does not reflect this. This is the correction to that documentation.
--- NOTE | 2022-09-18 06:30 | SUR.OPER ---
09/17/2022 1250 Patient was brought directly to ICU with RN and REAL ESTATE PROCESSOR. Patient remained intubated and recovered in ICU with TOOL GRINDING TECHNICIAN.
--- NOTE | 2022-09-30 12:14 | PM.TDS ---
Transfer Discharge Sum: Prov Provider Date of admission: 09/14/22 18:25 Primary care physician: Amor Arboleda, DO Admitting clinician: Tylor Yun MD Consults: 09/14/22 Consult to Physician Routine Comment: Consulting Provider: Randall Del Cid Reason for consultation: Significant hematemesis Has provider been notified: Yes Consult to Physician Routine Comment: Consulting Provider: Av Menon call or contact centre coach/MD group to consult: Dr. Menon Reason for consultation: upper GI bleed, acute blood loss anemia Has provider been notified: Yes DS: Admitting Diagnosis Discharge Date 09/17/22 Admitting Diagnosis gi bleed, anemia DS: Discharge Diagnosis Discharge Diagnosis (1) Acute upper gastrointestinal bleeding: Code(s): K92.2 - Gastrointestinal hemorrhage, unspecified Status: Acute Assessment and Plan: Patient presented with acute upper GI bleeding She was initially started on Protonix and octreotide infusion as varices were suspect and patient was transfused 2 units of PRBC EGD showed Ruby-Vang tear with evidence of bleeding and intraluminal blood. Two clips were placed Since then patient continues to lose hemoglobin and bleed 09/15 Hemoglobin this morning 6.0. Patient was transfused 2 more units of PRBC Later in the evening her hemoglobin again dropped to 6.1 and she received additional 2 units of PRBC 09/16 2 units of PRBC transfused. I spoke to Dr. Negron regarding repeating EGD. Patient was switched to Protonix drip 09/17 hemoglobin 6.6 will transfuse 2 more units of PRBC 2 units of FFP and 1 unit of platelets. IV calcium ordered. Vitamin K subQ ordered. GI plans to repeat EGD today. Will consider transferring to [facility] depending on EGD results Continue serial hemoglobin monitoring Continue PPI drip NPO (2) Hepatic encephalopathy: Code(s): K76.82 - Hepatic encephalopathy Status: Acute Assessment and Plan: Yesterday her ammonia level was 113 consistent with hepatic encephalopathy And was given lactulose enema x2 Ammonia level improved and patient is more awake today although still confused Continue lactulose and rifaximin (3) Ruby-Vang tear: Code(s): K22.6 - Gastro-esophageal laceration-hemorrhage syndrome Status: Acute Assessment and Plan: See above (4) Acute blood loss anemia: Code(s): D62 - Acute posthemorrhagic anemia Status: Acute Assessment and Plan: See above (5) Cirrhosis: Code(s): K74.60 - Unspecified cirrhosis of liver Status: Acute Assessment and Plan: Abdominal ultrasound reviewed and confirmed hepatic cirrhosis and status post cholecystectomy (6) Abdominal pain: Qualifiers: Abdominal location: right lower quadrant Qualified Code(s): R10.31 - Right lower quadrant pain Code(s): R10.9 - Unspecified abdominal pain Status: Inactive Assessment and Plan: Mild epigastric pain with epigastric tenderness likely secondary to Ruby-Vang tear lipase was normal Abdominal exam does not suggest significant ascites and patient has not had significant ascites since 2019 and has not required paracentesis. She is on empiric ceftriaxone at this time Ultrasound negative for any significant ascites (7) Back pain: Code(s): M54.9 - Dorsalgia, unspecified Status: Acute Assessment and Plan: Chronic musculoskeletal back pain P.r.n. pain control (8) Venous insufficiency: Code(s): I87.2 - Venous insufficiency (chronic) (peripheral) Status: Acute Assessment and Plan: Patient has a PICC line in right upper extremity which is not working properly. Chest x-ray was done which showed coiling. Plan to place a PICC line on the left side and remove the right PICC line Plan DVT prophylaxis -SCDs Stress ulcer prophylaxis -PPI Nutrition -NPO Code Status - Full Code Hernandez
== END 2022-09-17 22:19 | disposition short-term general hospital (02) | DRG 369 ==
LOC: ANHED 15:59 → ANHICU 22:46
PROVIDERS: Internal Medicine Gastroenterology; Physician Assistant; Admitting Provider Internal Medicine; Emergency Provider Emergency Medicine; PCP Student in an Organized Health Care Education/Training Program; Visit Provider Internal Medicine
PROC: 0DJ08ZZ Inspection of Upper Intestinal Tract, Via Natural or Artificial Opening Endoscopic (ICD-10-PCS; CPT 43235; principal; 2022-09-14 16:30)
DX: K22.6 Gastro-esophageal laceration-hemorrhage syndrome (principal); D62 Acute posthemorrhagic anemia; E87.20 Acidosis, unspecified; Z68.41 Body mass index [BMI] 40.0-44.9, adult; K74.60 Unspecified cirrhosis of liver; K76.82 Hepatic encephalopathy; I10 Essential (primary) hypertension; M19.90 Unspecified osteoarthritis, unspecified site; E78.5 Hyperlipidemia, unspecified; M79.7 Fibromyalgia; G47.33 Obstructive sleep apnea (adult) (pediatric); M32.9 Systemic lupus erythematosus, unspecified; E03.9 Hypothyroidism, unspecified; K58.9 Irritable bowel syndrome, unspecified; E11.42 Type 2 diabetes mellitus with diabetic polyneuropathy; I87.2 Venous insufficiency (chronic) (peripheral); M54.9 Dorsalgia, unspecified; G89.29 Other chronic pain; E66.01 Morbid (severe) obesity due to excess calories; Z86.73 Personal history of transient ischemic attack (TIA), and cerebral infarction without residual deficits; Z90.710 Acquired absence of both cervix and uterus; Z90.49 Acquired absence of other specified parts of digestive tract
CPT/HCPCS: 36415; 36430; 36569; 36600; 71045; 76700; 80048; 80053; 82140; 82248; 82805; 83605; 83690; 83735; 84443; 85014; 85018; 85025; 85027; 85055; 85384; 85610; 85730; 86850; 86900; 86901; 86920; 86923; 87040; 87086; 93005; 94002; 96361; 96374; 96375; 99284; 99285; A9270; C1751; C9113; J0171; J0330; J0613; J0696; J2250; J2270; J2354; J2405; J2704; J3430; J7030; J7040; J7050; J7120; P9016; P9017; P9034; P9047

== ENCOUNTER 2022-11-23 08:38 | Emergency (ER) | payer MEDICARE, MEDICAID, SELFPAY ==
--- NOTE | ~2022-11-23 | CT_ITS ---
EXAMINATION: CT chest abdomen pelvis w con DATE: 11/23/2022 11:15 CDT INDICATION: Right-sided chest pain. Abdomen pain. TECHNIQUE: Computed tomography (CT) of the chest, abdomen, and pelvis was performed with 100 cc Omnip aque 350 intravenous contrast. The dose-length product was 1416.64 mGy-cm. Automated exposure control and iterative reconstruction technique were employed. COMPARISON: CT dated 06/05/2021 FINDINGS: CHEST CT: Heart size normal. No thoracic lymphadenopathy. No significant pleural or pericardial effusion. There is mild atherosclerosis. Dependent atelectasis. No endobronchial lesions. No pneumothorax. No pulmon katty nodules. ABDOMEN/PELVIS CT: Tips shunt in place. There is evidence for cirrhosis with portal hypertension. There is splenomegaly with surgical changes at the splenic hilum, likely secondary to embolization. The pancreas, adrenal g lands and right kidney are unremarkable. There are nonobstructing left renal stones. Mild right hydro nephrosis, although no obstructing stone is seen. No acute osseous abnormality. There are multiple mi ld wedge compression deformities of the thoracic spine with accentuated kyphosis. Bladder is unremark able. There is free fluid in the pelvis. Normal appendix. Nonobstructive bowel pattern. No significan t vascular abnormality. No lymphadenopathy. IMPRESSION: 1. Cirrhosis of the liver with portal hypertension. Tips shunt present. 2: Mild right hydronephrosis. No obstructing stone or mass identified. 3: Nonobstructing left nephrolithiasis. Reviewed, dictated and finalized at location A.
[2022-11-23 08:43] VITALS: BP 162/75; PULSE 87; RESP 18; O2SAT 100
--- NOTE | 2022-11-23 09:20 | ECG_ITS ---
Measurements Intervals Hoven Rate: 83 P: 50 MD: 139 QRS: 18 QRSD: 110 T: 38 QT: 418 QTc: 493 Interpretive Statements SINUS RHYTHM CONSIDER INFERIOR INFARCT, AGE INDETERMINATE ABNORMAL ECG COMPARED TO ECG 09/14/2022 04:13:53 NO SIGNIFICANT CHANGES Electronically Signed On 11-23-2022 10:48:16 CDT by Faizan Cedillo D.O.
--- NOTE | 2022-11-23 09:20 | ED.FALL ---
HPI - Fall General Chief Complaint: Fall Stated Complaint: Fall Last Night Time Seen by Provider: 11/23/22 09:00 History of Present Illness HPI Narrative: 57-year-old female presented ED for evaluation of right-sided chest wall and abdominal pain. Patient reports that a friend stumbled into her causing her to fall and patient not on her right side. Patient does report increased shortness of breath and chest wall pain. Patient also complains of right-sided abdominal pain. Related Data Home Medications Medication Instructions Recorded Confirmed potassium chloride 10 mEq 10 meq PO DAILY 01/20/19 09/14/22 tablet,extended release furosemide 80 mg tablet 80 mg PO DAILY 04/06/19 09/14/22 pantoprazole 40 mg tablet,delayed 40 mg PO QAM 04/06/19 09/14/22 release rizatriptan 10 mg tablet 10 mg PO DAILY PRN Migraine 04/28/19 09/14/22 Headache spironolactone 100 mg tablet 100 mg PO DAILY 04/28/19 09/14/22 omega 0-aho-fjf-fish oil 1,000 mg 1 cap PO DAILY 07/15/19 09/14/22 (120 mg-180 mg) capsule (Fish Oil) albuterol 90 mcg/actuation aerosol 180 mcg inhalation TID PRN dyspnea 08/19/20 09/14/22 inhaler amlodipine 5 mg tablet 5 mg PO DAILY 09/14/22 09/14/22 nortriptyline 10 mg capsule 10 mg PO DAILY 09/14/22 09/14/22 rifaximin 550 mg tablet (Xifaxan) 550 mg PO DAILY 09/14/22 09/14/22 Allergies Allergy/AdvReac Type Severity Reaction Status Date / Time fentanyl AdvReac Unknown N/V Verified 01/26/22 11:55 Review of Systems Review of Systems: All systems reviewed & are unremarkable except as noted in HPI and below PMFSH Past Medical History Medical History Anxiety Arthritis Asthma Cerebrovascular accident (10/2005) Chronic pain Previously on methadone but this was discontinued in June of 2018. Cirrhosis Status post TIPS. [facility] Degenerative disc disease Depression Diet-controlled diabetes mellitus Essential hypertension Fibromyalgia On chronic pain medication Gastroesophageal reflux disease Gout Headaches due to old head injury Heart murmur Normal echocardiogram April 2017. Hyperlipemia Hypertension Hypothyroidism Irritable bowel disease Kidney stones Obstructive sleep apnea Portal vein thrombosis On chronic anticoagulation with Coumadin Systemic lupus erythematosus Type 2 diabetes mellitus with diabetic polyneuropathy Surgical History Surgical History History of carpal tunnel surgery of right wrist History of section History of hysterectomy In her early to mid 30's due to fibrotic disease. History of laparoscopic cholecystectomy (07/2016) History of transjugular intrahepatic portosystemic shunt (2018) Family History Family History Mother Hypertension Breast cancer Cerebrovascular accident Coronary artery disease Father Cerebrovascular accident Coronary artery disease With [place] at 40 years old Social History Social History Social History: Surrogate medical decision maker: Tarafabiola Gillespie, sister. Code status: Full code. Smoking status: Never smoker Second hand tobacco smoke exposure: No Alcohol intake: never Substance use: never Substance use type: prescription drug Lack of Transportation: No Lack of Food: Sometimes True Current Housing: I Have Housing Concerned About Future Housing: No Difficulty Paying Gas/Electric Bills: No Difficulty Paying for Meds: No Currently Unemployed: No Education: Trade/Vocational Certificate Difficulty w/ Childcare or Family Care: No Living arrangements: alone Spiritual care concerns: No Exam Narrative: APPEARANCE: Well appearing, no pain, no distress, well-nourished. HEAD: normocephalic, atraumatic. EYES: PERRLA/EOMI, conjunctivae clear. NOSE: Normal
[2022-11-23 09:30] VITALS: BP 142/65; PULSE 81; RESP 18; O2SAT 98
[2022-11-23 10:10] LABS: Basophils Percent Auto 0.9 % (0.2-1.2); Eosinophils Absolute Auto 0.1 K/mm3 (0-0.3); Eosinophils Percent Auto 3.7 % (0-4.4); Hemoglobin 8.3 g/dL (12.0-15.0); Immature Granulocyte Absolute 0.01 K/mm3 (0.00-0.031); Immature Granulocyte Percent A 0.3 % (0-0.5); Immature Platelet Fraction Pct 1.7 % (0.9-11.2); Lymphocytes Absolute Auto 0.64 K/mm3 (0.9-3.2); Lymphocytes Percent Auto 18.2 % (18.3-44.2); Mean Corpuscular HGB Conc 30.7 g/dl (32-36); Mean Corpuscular Hemoglobin 24.6 pg (26-34); Mean Corpuscular Volume 80.1 fl (80-100); Mean Platelet Volume 9.4 fl (7.4-10.4); Monocytes Absolute Auto 0.5 K/mm3 (0.1-0.6); Monocytes Percent Auto 12.8 % (2.6-8.5); Neutrophils Absolute Auto 2.3 K/mm3 (1.3-6.7); Neutrophils Percent Auto 64.1 % (45.5-73.1); Platelet Count Result 133 k/mm3 (150-375); Red Blood Count 3.37 M/mm3 (4.2-5.4); Red Cell Distribution Width 19.7 % (11.5-14.5); White Blood Count 3.5 K/mm3 (4.5-10.0)
[2022-11-23 10:15] VITALS: BP 124/65; PULSE 82; RESP 20; O2SAT 99
[2022-11-23 10:19] LABS: Alanine Aminotransferase 34 U/L (6-35); Albumin Level 2.6 g/dL (3.5-5.1); Alkaline Phosphatase 123 U/L (38-126); Anion Gap 2 mmol/L (8-16); Aspartate Amino Transferase 69 U/L (14-36); Bilirubin,Total 1.1 mg/dL (0.2-1.3); Blood Urea Nitrogen 6 mg/dL (7-17); Calcium 7.7 mg/dL (8.4-10.2); Carbon Dioxide 29 mmol/L (22-30); Chloride 106 mmol/L (98-107); Estimated CRCL calculation 104 ml/min; Estimated Glomerular Filt Rate > 60; Glucose 87 mg/dL (65-110); INR 1.4; Potassium 3.2 mmol/L (3.4-5.0); Prothrombin Time 18.1 Seconds (11.1-14.7); Sodium 137 mmol/L (137-145)
[2022-11-23 10:20] LABS: Partial Thromboplastin Time 39.4 SECONDS (22.3-36.8)
[2022-11-23 10:45] VITALS: BP 129/54; PULSE 85; RESP 18; O2SAT 99
[2022-11-23 11:00] VITALS: BP 110/49; PULSE 80; RESP 18; O2SAT 99
[2022-11-23 12:00] VITALS: BP 110/53; PULSE 83; RESP 18; O2SAT 100
== END 2022-11-23 12:15 | disposition home or self-care (01) ==
PROVIDERS: Emergency Provider Emergency Medicine; PCP Student in an Organized Health Care Education/Training Program
DX: R10.9 Unspecified abdominal pain (principal); J45.909 Unspecified asthma, uncomplicated; E78.5 Hyperlipidemia, unspecified; I10 Essential (primary) hypertension; E11.42 Type 2 diabetes mellitus with diabetic polyneuropathy; M79.7 Fibromyalgia; M10.9 Gout, unspecified; M19.90 Unspecified osteoarthritis, unspecified site; K74.60 Unspecified cirrhosis of liver; K21.9 Gastro-esophageal reflux disease without esophagitis; K58.9 Irritable bowel syndrome, unspecified; G47.33 Obstructive sleep apnea (adult) (pediatric); M32.9 Systemic lupus erythematosus, unspecified; F41.9 Anxiety disorder, unspecified; Z87.442 Personal history of urinary calculi; Z90.710 Acquired absence of both cervix and uterus; N20.0 Calculus of kidney; N13.30 Unspecified hydronephrosis; R94.31 Abnormal electrocardiogram [ECG] [EKG]; K76.6 Portal hypertension; W51.XXXA Accidental striking against or bumped into by another person, initial encounter
CPT/HCPCS: 36415; 71260; 74177; 80053; 85025; 85055; 85610; 85730; 93005; 99284; Q9967

== ENCOUNTER → 2022-12-12 10:45 | Outpatient (CLI) | payer MEDICARE, MEDICAID, SELFPAY ==
--- NOTE | ~2022-12-12 | US_ITS ---
Renal-Bladder ultrasound Clinical History: Hydronephrosis Technique: Real-time sonographic imaging of the kidneys and urinary bladder was performed. Findings: The right kidney measures 10.3 cm in length and the left kidney measures 11.8 cm. There is no hydronephrosis or renal calculus identified. Renal cortical echogenicity is increased. No renal ma ss lesion is identified. The urinary bladder is minimally distended at the time of this exam, limiting evaluation. Probable sm all around of free fluid in the pelvis. Impression: No hydronephrosis. Mild increased renal echogenicity suggest chronic renal disease. Small amount of ascites probably present about the urinary bladder. Reviewed, dictated and finalized at location M. Impression: No hydronephrosis. Mild increased renal echogenicity suggest chronic renal disease. Small amount of ascites probably present about the urinary bladder.
== END ==
PROVIDERS: PCP Student in an Organized Health Care Education/Training Program; Visit Provider Student in an Organized Health Care Education/Training Program
DX: N13.30 Unspecified hydronephrosis (principal)
CPT/HCPCS: 76770

== ENCOUNTER 2022-12-23 13:40 | Emergency (ER) | payer MEDICARE, MEDICAID, SELFPAY ==
[2022-12-23] VITALS (20 sets, daily range): BP systolic 157–191; BP diastolic 70–92; PULSE 69–83; RESP 12–19; TEMP 36.9; O2SAT 96–100
--- NOTE | ~2022-12-23 | CT_ITS ---
EXAMINATION: CT abdomen pelvis w con DATE: 12/23/2022 16:06 INDICATION: Abdominal pain TECHNIQUE: Computed tomography (CT) of the abdomen and pelvis was performed with 100 mL Omnipaque-350 intravenous contrast. Automated exposure control and iterative reconstruction technique were employe d. The dose-length product was 1257.55 mGy-cm. COMPARISON: 11/23/2022 and 08/16/2020 FINDINGS: Bilateral small posterior layering pleural effusions with mild dependent atelectasis in bilateral low er lobes. Heart size is normal. No pericardial effusion. Nodular and shrunken cirrhotic liver with ch yogesh of transhepatic internal jugular portosystemic shunt (TIPS) with contrast opacified shunt. Uncha nged chronic mild intrahepatic biliary ductal dilation in the medial segment of the left hepatic lobe . Splenomegaly and paraesophageal varices consistent with secondary portal venous hypertension. There is a single residual intraluminal clip at the cardia of the stomach, decreased from at least 6 at th e time of a KUB on 09/17/2022. Dense metallic streak artifact related to embolization coils in the spl enic artery at the splenic hilum with additional coils extending short distance along a couple additi onal arteries within the spleen. Pancreas, bilateral adrenal glands and right kidney are normal. Ther e are 3 nonobstructing left renal stones measuring up to 3 mm bowels including the appendix are kalyan l. Bladder is normal. The uterus is not identified and has likely been surgically resected. Small john unt of ascites in the abdomen and pelvis. No abscess or free intraperitoneal gas. No pathologically e nlarged abdominal or pelvic lymphadenopathy. Chronic mild anterior wedging at T9-T12. Relatively rece nt-appearing non to minimally displaced anterior right fifth-ninth rib fractures. IMPRESSION: 1. Subacute appearing nondisplaced minimally displaced anterior right fifth-ninth rib fractures. 2. Cirrhosis with patent TIPS and stigmata of portal venous hypertension including splenomegaly and p araesophageal varices. 3. Small bilateral pleural effusions and small amount of ascites likely related to liver disease. 4. Nonobstructing left nephrolithiasis. 5. Streak artifact in the left upper quadrant likely related to splenic artery coil embolization. Reviewed, dictated and finalized at location A. IMPRESSION: 1. Subacute appearing nondisplaced minimally displaced anterior right fifth-carlee th rib fractures. 2. Cirrhosis with patent TIPS and stigmata of portal venous hypertension includ ing splenomegaly and paraesophageal varices. 3. Small bilateral pleural effusions and small amount of ascites likely related to liver disease. 4. Nonobstructing left nephrolithiasis. 5. Streak artifact in the left upper quadrant likely related to splenic artery coil embolization.
--- NOTE | ~2022-12-23 | XR_ITS ---
EXAMINATION: XR chest 2V Exam Date/Time: 12/23/2022 15:05 CDT HISTORY: cough, RT FLANK PAIN, HX RUPT SPLEEN Comparison: 09/17/2022. RESULT: Lines, tubes, and devices: Surgical clips over the GE junction. Cholecystectomy clips. Left upper qu adrant embolization coil. TIPS. Lungs and pleura: Cephalization. Centralized streaky and reticular opacities with cuffing. Mild bila teral costophrenic angle blunting. Cardiomediastinal silhouette: Stable. Other: No acute osseous or upper abdominal finding. IMPRESSION: Pulmonary vascular congestion/mild edema. Small bilateral effusions. Reviewed, dictated and finalized at location K.
--- NOTE | 2022-12-23 14:41 | ED.GENADULT ---
HPI - General Adult General Chief complaint: Abdominal Pain <Opal Schwab July, INSERT MOLDING OPERATOR - Last Filed: 12/23/22 14:46> Stated complaint: sent by PCP for epigastric pain <Opal Schwab July INSERT MOLDING OPERATOR - Last Filed: 12/23/22 14:46> Time Seen by Provider: 12/23/22 14:38 <Opal Schwab July, INSERT MOLDING OPERATOR - Last Filed: 12/23/22 14:46> Source: patient <Tessa Ivan PA-C - Last Filed: 12/24/22 02:55> Mode of arrival: ambulatory <Tessa Ivan PA-C - Last Filed: 12/24/22 02:55> Limitations: no limitations <CHI Valerio Last Filed: 12/24/22 02:55> History of Present Illness HPI narrative: Liv Delong is a 57 y/o female who presents with reports of having severe mid upper/epigastric abdominal pain that started 4 days ago and wraps around to her right upper to her back. She relates this to a fall she had a month ago and was bruised from the fall on the right side. No nausea /vomiting / last BM today Denies changes with urine rates pain at a 10/10 is worse with certain movements/ also reports of cough that is new with some SOB with exertion. No fever/chills. She reports her PCP sent her hear wanting a CT of her abdomen <Opal Schwab July, INSERT MOLDING OPERATOR - Last Filed: 12/23/22 14:46> Liv Delong is a 57 y/o female who presents with reports of having severe mid upper/epigastric abdominal pain that started 4 days ago and wraps around to her right upper to her back. She relates this to a fall she had a month ago and was bruised from the fall on the right side. No nausea /vomiting / last BM today Denies changes with urine rates pain at a 10/10 is worse with certain movements/ also reports of cough that is new with some SOB with exertion. No fever/chills. She reports her PCP sent her hear wanting a CT of her abdomen Patient w/ Hx of cirrhosis s/p [facility], splenic laceration, esophageal varices, DMII, chronic pain, previous cholecystectomy. <Tessa Ivan PA-C - Last Filed: 12/24/22 02:55> Related Data Home medications: Home Medications Medication Instructions Recorded Confirmed potassium chloride 10 mEq 10 meq PO DAILY 01/20/19 09/14/22 tablet,extended release furosemide 80 mg tablet 80 mg PO DAILY 04/06/19 09/14/22 pantoprazole 40 mg tablet,delayed 40 mg PO QAM 04/06/19 09/14/22 release rizatriptan 10 mg tablet 10 mg PO DAILY PRN Migraine 04/28/19 09/14/22 Headache spironolactone 100 mg tablet 100 mg PO DAILY 04/28/19 09/14/22 omega 4-uqy-fkq-fish oil 1,000 mg 1 cap PO DAILY 07/15/19 09/14/22 (120 mg-180 mg) capsule (Fish Oil) albuterol 90 mcg/actuation aerosol 180 mcg inhalation TID PRN dyspnea 08/19/20 09/14/22 inhaler amlodipine 5 mg tablet 5 mg PO DAILY 09/14/22 09/14/22 nortriptyline 10 mg capsule 10 mg PO DAILY 09/14/22 09/14/22 rifaximin 550 mg tablet (Xifaxan) 550 mg PO DAILY 09/14/22 09/14/22 <Opla Kyle, INSERT MOLDING OPERATOR - Last Filed: 12/23/22 14:46> Allergies/adverse reactions: Allergies Allergy/AdvReac Type Severity Reaction Status Date / Time fentanyl AdvReac Unknown N/V Verified 12/23/22 13:40 gi cocktail Allergy Intermediate Hives Uncoded 12/23/22 23:54 <Opal Kyle, INSERT MOLDING OPERATOR - Last Filed: 12/23/22 14:46> Review of Systems Review of Systems: CONSTITUTIONAL: Denies fever, chills, or sweats. CARDIOVASCULAR: Denies chest pain. RESPIRATORY: Denies dyspnea. GASTROINTESTINAL: See HPI. GENITOURINARY: Denies dysuria or hematuria. MUSCULOSKELETAL: See HPI. NEUROLOGIC: Denies headache, numbness, or weakness. <Tessa Ivan PA-C - Last Filed: 12/24/22 02:55> All systems reviewed & are unremarkable except as noted in HPI and below <CHI Valerio Last Filed: 12/24/22 02:55> [facility] Past Medical History Medical History: Medical History Anxiety Arthritis Asthma Cerebrovascular accident (10/2005) Chronic pain Previously on methadone but this was disconti
[2022-12-23 15:31] LABS: Basophils Absolute Auto 0.1 K/mm3 (0.0-0.1); Basophils Percent Auto 1.4 % (0.2-1.2); Eosinophils Absolute Auto 0.3 K/mm3 (0-0.3); Eosinophils Percent Auto 5.9 % (0-4.4); Hematocrit 30.7 % (37.0-47.0); Hemoglobin 9.2 g/dL (12.0-15.0); Immature Granulocyte Absolute 0.01 K/mm3 (0.00-0.031); Immature Granulocyte Percent A 0.2 % (0-0.5); Immature Platelet Fraction Pct 2.2 % (0.9-11.2); Lymphocytes Absolute Auto 0.84 K/mm3 (0.9-3.2); Lymphocytes Percent Auto 19.9 % (18.3-44.2); Mean Corpuscular Hemoglobin 22.9 pg (26-34); Mean Corpuscular Volume 76.4 fl (80-100); Mean Platelet Volume 9.8 fl (7.4-10.4); Monocytes Absolute Auto 0.4 K/mm3 (0.1-0.6); Monocytes Percent Auto 9.7 % (2.6-8.5); Neutrophils Absolute Auto 2.7 K/mm3 (1.3-6.7); Neutrophils Percent Auto 62.9 % (45.5-73.1); Platelet Count Result 126 k/mm3 (150-375); Red Blood Count 4.02 M/mm3 (4.2-5.4); White Blood Count 4.2 K/mm3 (4.5-10.0)
[2022-12-23 15:42] LABS: Alanine Aminotransferase 35 U/L (6-35); Albumin Level 2.9 g/dL (3.5-5.1); Alkaline Phosphatase 156 U/L (38-126); Anion Gap 2 mmol/L (8-16); Aspartate Amino Transferase 75 U/L (14-36); Bilirubin,Total 1.4 mg/dL (0.2-1.3); Blood Urea Nitrogen 11 mg/dL (7-17); Calcium 8.6 mg/dL (8.4-10.2); Carbon Dioxide 23 mmol/L (22-30); Chloride 111 mmol/L (98-107); Estimated CRCL calculation 126 ml/min; Estimated Glomerular Filt Rate > 60; Glucose 86 mg/dL (65-110); Lipase 94 U/L (23-300); Potassium 3.8 mmol/L (3.4-5.0); Sodium 136 mmol/L (137-145)
--- NOTE | 2022-12-23 19:42 | ECG_ITS ---
Measurements Intervals [place] Rate: 71 P: 17 [place]: 142 QRS: 2 QRSD: 101 T: 14 QT: 423 QTc: 461 Interpretive Statements SINUS RHYTHM COMPARED TO ECG 11/23/2022 09:44:50 NO SIGNIFICANT CHANGES Electronically Signed On 12-24-2022 19:48:39 CDT by Talya Izquierdo M.D.
[2022-12-23] MEDS: BELLADONNA ALK/PHENOB ELIX 10 ML, MAG HYDROX/ALUMINUM HYD/SIMETH 30 ML, LIDOCAINE HCL 2... PO (19:56)
[2022-12-23] MEDS: ONDANSETRON INJ 4 MG/2 ML VIAL IV PUSH (19:58)
[2022-12-23] MEDS: MORPHINE SULFATE (*CRX) 4 MG/ML INJ IV PUSH (19:58)
[2022-12-23] MEDS: diphenhydrAMINE HCl INJ 50 MG/ML VIAL 25 MG IV PUSH (20:15)
--- NOTE | 2022-12-23 20:23 | PC.NURSE ---
after administration of zofran and morphine, pt had an adverse reaction of hives on LEFT arm proximal to iv site. pt was given iv benadryl to prevent further symptoms. pt denies sob and spo2 is currently 100%.
[2022-12-23 21:51] LABS: Appearance Urine Cloudy (Clear); Bacteria Urine 4+ /hpf; Bilirubin Urine Negative (Negative); Blood Urine Negative (Negative); Color Urine Yellow (Yellow); Glucose Urine UA Negative (Negative); Ketones Urine Negative (Negative); Leukocyte Esterase Ur 1+ LEU/UL (Negative); Nitrate Urine Positive (Negative); Non Pathogenic Casts 0-2; Protein Urine Negative (Negative); RBC Urine 0-2 /hpf (0-2); Squamous Epithelial Cell Urine Few /hpf (Few); Urobilinogen Urine 0.2 mg/dL (<2.0); WBC Urine 51-100 /hpf
[2022-12-23 21:55] LABS: Specific Grav Ur 1.048 (1.001-1.035)
[2022-12-23 21:56] LABS: Add Urine Microscopic? YES
[2022-12-23 22:02] LABS: NT Pro B Type Natriuretic Pept 126 pg/mL (19.9-100); Troponin I < 0.012 ng/mL (0.000-0.034)
[2022-12-23 22:30] LABS: INR 1.4; Prothrombin Time 17.7 Seconds (11.1-14.7)
[2022-12-23 22:31] LABS: Partial Thromboplastin Time 41.2 SECONDS (22.3-36.8)
--- NOTE | 2022-12-23 23:38 | PC.NURSE ---
report and care given to ABRIL Tyler. all questions answered.
[2022-12-24] MEDS: CEPHALEXIN 500 MG CAPSULE PO (00:49)
== END 2022-12-24 00:50 | disposition home or self-care (01) ==
PROVIDERS: Emergency Medicine; Emergency Provider Physician Assistant; PCP Student in an Organized Health Care Education/Training Program
DX: S22.41XA Multiple fractures of ribs, right side, initial encounter for closed fracture (principal); R10.9 Unspecified abdominal pain; W19.XXXA Unspecified fall, initial encounter; R06.02 Shortness of breath; J45.909 Unspecified asthma, uncomplicated; I10 Essential (primary) hypertension; E78.5 Hyperlipidemia, unspecified; K21.9 Gastro-esophageal reflux disease without esophagitis; E11.9 Type 2 diabetes mellitus without complications; E03.9 Hypothyroidism, unspecified
CPT/HCPCS: 36415; 71046; 74177; 80053; 81001; 83690; 83880; 84484; 85025; 85055; 85610; 85730; 87077; 87086; 87186; 93005; 96374; 96375; 99284; A9270; J1200; J2270; J2405; Q9967

== ENCOUNTER 2023-02-01 23:08 | Inpatient (IN) | payer MEDICARE, MEDICAID, SELFPAY ==
--- NOTE | ~2023-02-01 | XR_ITS ---
EXAMINATION: XR abdomen gastric tube insert DATE: 02/02/2023 08:17 INDICATION: Nasogastric tube placement TECHNIQUE: A supine view of the abdomen which includes a chest was obtained for evaluation of feedin g tube placement. COMPARISON: CT dated 02/02/2023 FINDINGS: Nasogastric tube tip in proximal side port in the body of the stomach. Cholecystectomy clips and TIPS in right upper quadrant. Large conglomeration of splenic artery embolization coils in the left upper quadrant. No dilated loops of gas-filled bowel in the visualized abdomen. Lungs are clear with no fo otis airspace opacities, pulmonary edema, pleural effusion or pneumothorax. Heart size is within kalyan l limits for AP technique. IMPRESSION: 1. Nasogastric tube in the stomach. Reviewed, dictated and finalized at location A. AN NANNY
--- NOTE | ~2023-02-01 | CT_ITS ---
EXAMINATION: CT abdomen pelvis w con DATE: 02/02/2023 05:06 INDICATION: Abdominal pain and anemia TECHNIQUE: Computed tomography (CT) of the abdomen and pelvis was performed with 100 mL Omnipaque-350 intravenous contrast. Automated exposure control and iterative reconstruction technique were employe d. The dose-length product was 1318.53 mGy-cm. COMPARISON: 12/23/2022 FINDINGS: Lung bases are clear. Heart size is normal. No pericardial or pleural effusion. Shrunken and nodular cirrhotic liver with change of prior TIPS procedure with contrast opacified shunt. Cholecystectomy cl ips at the gallbladder fossa. Unchanged chronic mild intrahepatic biliary ductal dilation in the medial segment of the left hepatic lobe. Splenomegaly and paraesophageal varices consistent with secondary portal venous hypertension. There is a single residual intraluminal clip at the cardia of the stomach, decreased from at least 6 at the time of a KUB on 09/17/2022. Dense metallic streak artifact related to embolization coils in th e splenic artery at the splenic hilum with additional coils extending short distance along a couple a dditional arteries within the spleen. Pancreas, bilateral adrenal glands and right kidney are normal. There are 4 nonobstructing left renal stones measuring up to 3 mm. Bowel s including the appendix are normal. Bladder is normal. The uterus is not identified and has likely b een surgically resected. Small amount of ascites in the abdomen and pelvis. No abscess or free intrap eritoneal gas. No pathologically enlarged abdominal or pelvic lymphadenopathy. Chronic mild anterior wedging at T9-T12. Increasing callus formation associated with healing non to minimally displaced ant erior right sixth-ninth rib fractures. IMPRESSION: 1. Cirrhosis with patent TIPS and stigmata of portal venous hypertension including splenomegaly and p araesophageal varices. 2. Small amount of ascites likely related to liver disease. 3. Nonobstructing left nephrolithiasis. Reviewed, dictated and finalized at location A. WARE PROJECT LEAD IMPRESSION: 1. Cirrhosis with patent TIPS and stigmata of portal venous hypertension includ ing splenomegaly and paraesophageal varices. 2. Small amount of ascites likely related to liver disease. 3. Nonobstructing left nephrolithiasis.
[2023-02-01 23:12] VITALS: BP 121/62; PULSE 89; RESP 14; TEMP 36.3; O2SAT 100
[2023-02-02] VITALS (51 sets, daily range): BP systolic 128–168; BP diastolic 33–98; PULSE 83–101; RESP 12–19; TEMP 36.3–37.4; O2SAT 95–100; BMI 37.0
[2023-02-02 00:06] LABS: Alanine Aminotransferase 34 U/L (6-35); Albumin Level 2.3 g/dL (3.5-5.1); Alkaline Phosphatase 119 U/L (38-126); Anion Gap 4 mmol/L (8-16); Aspartate Amino Transferase 71 U/L (14-36); Blood Urea Nitrogen 19 mg/dL (7-17); Calcium 7.9 mg/dL (8.4-10.2); Carbon Dioxide 24 mmol/L (22-30); Chloride 110 mmol/L (98-107); Estimated CRCL calculation 92 ml/min; Estimated Glomerular Filt Rate > 60; Glucose 95 mg/dL (65-110); Potassium 3.8 mmol/L (3.4-5.0); Sodium 138 mmol/L (137-145)
[2023-02-02] MEDS: ONDANSETRON INJ 4 MG/2 ML VIAL IV PUSH (00:15)
[2023-02-02] MEDS: SODIUM CHLORIDE 0.9% IV 500 ML 999 ML IV CONT (00:15)
[2023-02-02 00:24] LABS: INR 1.5; Prothrombin Time 18.7 Seconds (11.1-14.7)
[2023-02-02 00:25] LABS: Partial Thromboplastin Time 39.8 SECONDS (22.3-36.8)
[2023-02-02 00:39] LABS: Basophils Percent Auto 0.9 % (0.2-1.2); Eosinophils Absolute Auto 0.1 K/mm3 (0-0.3); Eosinophils Percent Auto 3.1 % (0-4.4); Immature Granulocyte Absolute 0.02 K/mm3 (0.00-0.031); Immature Granulocyte Percent A 0.4 % (0-0.5); Lymphocytes Absolute Auto 0.99 K/mm3 (0.9-3.2); Lymphocytes Percent Auto 21.9 % (18.3-44.2); Mean Corpuscular HGB Conc 28.8 g/dl (32-36); Mean Corpuscular Hemoglobin 21.7 pg (26-34); Mean Corpuscular Volume 75.5 fl (80-100); Mean Platelet Volume 10.1 fl (7.4-10.4); Monocytes Absolute Auto 0.5 K/mm3 (0.1-0.6); Monocytes Percent Auto 11.3 % (2.6-8.5); Neutrophils Absolute Auto 2.8 K/mm3 (1.3-6.7); Neutrophils Percent Auto 62.4 % (45.5-73.1); Platelet Count Result 146 k/mm3 (150-375); Red Blood Count 3.18 M/mm3 (4.2-5.4); Red Cell Distribution Width 20.4 % (11.5-14.5); White Blood Count 4.5 K/mm3 (4.5-10.0)
[2023-02-02 00:43] LABS: Hemoglobin 6.9 g/dL (12.0-15.0)
[2023-02-02 00:44] LABS: Platelet Estimate Adequate (Adequate)
[2023-02-02 00:45] LABS: Anisocytosis 1+ (NORMAL); Hypochromasia 1+ (NORMAL); Microcytosis 2+ (NORMAL); Schistocytes None Seen (NORMAL)
[2023-02-02 01:45] LABS: Basophils Percent Auto 0.7 % (0.2-1.2); Eosinophils Absolute Auto 0.1 K/mm3 (0-0.3); Eosinophils Percent Auto 1.9 % (0-4.4); Hematocrit 22.3 % (37.0-47.0); Immature Granulocyte Absolute 0.01 K/mm3 (0.00-0.031); Immature Granulocyte Percent A 0.2 % (0-0.5); Lymphocytes Absolute Auto 0.59 K/mm3 (0.9-3.2); Lymphocytes Percent Auto 14.3 % (18.3-44.2); Mean Corpuscular HGB Conc 29.1 g/dl (32-36); Mean Corpuscular Volume 75.6 fl (80-100); Mean Platelet Volume 9.5 fl (7.4-10.4); Monocytes Absolute Auto 0.5 K/mm3 (0.1-0.6); Monocytes Percent Auto 12.6 % (2.6-8.5); Neutrophils Absolute Auto 2.9 K/mm3 (1.3-6.7); Neutrophils Percent Auto 70.3 % (45.5-73.1); Platelet Count Result 122 k/mm3 (150-375); Red Blood Count 2.95 M/mm3 (4.2-5.4); Red Cell Distribution Width 20.2 % (11.5-14.5); White Blood Count 4.1 K/mm3 (4.5-10.0)
[2023-02-02 02:03] LABS: Alanine Aminotransferase 34 U/L (6-35); Albumin Level 2.3 g/dL (3.5-5.1); Alkaline Phosphatase 110 U/L (38-126); Anion Gap 4 mmol/L (8-16); Aspartate Amino Transferase 68 U/L (14-36); Blood Urea Nitrogen 19 mg/dL (7-17); Carbon Dioxide 24 mmol/L (22-30); Chloride 109 mmol/L (98-107); Estimated CRCL calculation 106 ml/min; Estimated Glomerular Filt Rate > 60; Glucose 87 mg/dL (65-110); Lipase 232 U/L (23-300); Magnesium 1.9 mg/dL (1.6-2.3); Sodium 137 mmol/L (137-145)
[2023-02-02 02:04] LABS: Lactic Acid Reflex 1.4 mmol/L (0.7-2.0)
[2023-02-02 02:12] LABS: Hemoglobin 6.5 g/dL (12.0-15.0)
[2023-02-02 02:13] LABS: Platelet Estimate Decreased (Adequate)
[2023-02-02 02:20] LABS: Anisocytosis 1+ (NORMAL); Hypochromasia 1+ (NORMAL); Large Platelets Present; Microcytosis 2+ (NORMAL); Procalcitonin 0.3 ng/mL
[2023-02-02 02:21] LABS: Ovalocytes 1+ (NORMAL); Schistocytes None Seen (NORMAL)
[2023-02-02] MEDS: TUBING, BLOOD PLUM PUMP TUBING 1 EACH XX ×2 (02:28→05:37)
[2023-02-02] MEDS: SODIUM CHLORIDE 0.9% IV 250 ML 30 ML IV CONT (02:28)
[2023-02-02 02:39] LABS: INR 1.5; Prothrombin Time 19.1 Seconds (11.1-14.7)
[2023-02-02 02:40] LABS: Partial Thromboplastin Time 41.5 SECONDS (22.3-36.8)
[2023-02-02 03:13] LABS: Appearance Urine Cloudy (Clear); Bacteria Urine 4+ /hpf; Bilirubin Urine Negative (Negative); Blood Urine Negative (Negative); Color Urine Yellow (Yellow); Glucose Urine UA Negative (Negative); Ketones Urine Negative (Negative); Leukocyte Esterase Ur 2+ LEU/UL (Negative); Nitrate Urine Positive (Negative); Protein Urine Negative (Negative); Specific Grav Ur 1.022 (1.001-1.035); Squamous Epithelial Cell Urine Many /hpf (Few); Urobilinogen Urine 0.2 mg/dL (<2.0); WBC Urine 21-50 /hpf; pH Urine 6.5 (5.0-9.0)
[2023-02-02 03:18] LABS: Add Urine Microscopic? YES
--- NOTE | 2023-02-02 04:38 | PC.NURSE ---
technical project manager calls to inquire about IV for CT. ERP states okay to give CT contrast through IV. IV is patent, flushed and secured. 1st unit of blood is transfused and line was thoroughly flushed.
--- NOTE | 2023-02-02 04:40 | PC.NURSE ---
Patient taken to CT at this time via stretcher.
[2023-02-02 05:19] LABS: Hematocrit 22.5 % (37.0-47.0)
[2023-02-02 05:27] LABS: Hemoglobin 6.7 g/dL (12.0-15.0)
--- NOTE | 2023-02-02 06:00 | ED.GENADULT ---
HPI - General Adult General Chief complaint: Nausea/Vomiting/Diarrhea <Rafat Teixeira MD - Last Filed: 02/02/23 06:01> Stated complaint: nausea after getting home from work <Rafat Teixeira MD - Last Filed: 02/02/23 06:01> Time Seen by Provider: 02/01/23 23:45 <Rafat Teixeira MD - Last Filed: 02/02/23 06:01> History of Present Illness HPI narrative: Patient [age] year old female who presents emerged department with chief complaint of nausea. Patient reports that she feels similar to whenever she had an upper GI bleed back in August that was complicated requiring even transfer to [facility] after multiple units of blood endoscopy. The patient at that time had a Ruby-Vang tear the patient states that she has not vomited any blood and reports that she is not having any blood from her rectum the patient states that her nausea is feeling a little better after she received Zofran by EMS. <Rafat Teixeira MD - Last Filed: 02/02/23 06:01> Related Data Home medications: Home Medications Medication Instructions Recorded Confirmed potassium chloride 10 mEq 10 meq PO DAILY 01/20/19 09/14/22 tablet,extended release furosemide 80 mg tablet 80 mg PO DAILY 04/06/19 09/14/22 pantoprazole 40 mg tablet,delayed 40 mg PO QAM 04/06/19 09/14/22 release rizatriptan 10 mg tablet 10 mg PO DAILY PRN Migraine 04/28/19 09/14/22 Headache spironolactone 100 mg tablet 100 mg PO DAILY 04/28/19 09/14/22 omega 7-uqd-whp-fish oil 1,000 mg 1 cap PO DAILY 07/15/19 09/14/22 (120 mg-180 mg) capsule (Fish Oil) albuterol 90 mcg/actuation aerosol 180 mcg inhalation TID PRN dyspnea 08/19/20 09/14/22 inhaler amlodipine 5 mg tablet 5 mg PO DAILY 09/14/22 09/14/22 nortriptyline 10 mg capsule 10 mg PO DAILY 09/14/22 09/14/22 rifaximin 550 mg tablet (Xifaxan) 550 mg PO DAILY 09/14/22 09/14/22 <Rafat Teixeira MD - Last Filed: 02/02/23 06:01> Allergies/adverse reactions: Allergies Allergy/AdvReac Type Severity Reaction Status Date / Time fentanyl AdvReac Unknown N/V Verified 02/01/23 23:38 gi cocktail Allergy Intermediate Hives Uncoded 02/01/23 23:38 <Rafat Teixeira MD - Last Filed: 02/02/23 06:01> Review of Systems Review of Systems: A 10 system review of systems was completed on the patient and is negative except for what is stated in the HPI. Nursing and ancillary documentation was reviewed. <Rafat Teixeira MD - Last Filed: 02/02/23 06:01> [facility] Past Medical History Medical History: Medical History Anxiety Arthritis Asthma Cerebrovascular accident (10/2005) Chronic pain Previously on methadone but this was discontinued in June of 2018. Cirrhosis Status post TIPS. [facility] at [facility]. Degenerative disc disease Depression Diet-controlled diabetes mellitus Essential hypertension Fibromyalgia On chronic pain medication Gastroesophageal reflux disease Gout Headaches due to old head injury Heart murmur Normal echocardiogram April 2017. Hyperlipemia Hypertension Hypothyroidism Irritable bowel disease Kidney stones Obstructive sleep apnea Portal vein thrombosis On chronic anticoagulation with Coumadin Systemic lupus erythematosus Type 2 diabetes mellitus with diabetic polyneuropathy <Rafat Teixeira MD - Last Filed: 02/02/23 06:01> Surgical History Surgical History: Surgical History History of carpal tunnel surgery of right wrist History of section History of hysterectomy In her early to mid 30's due to fibrotic disease. History of laparoscopic cholecystectomy (07/2016) History of transjugular intrahepatic portosystemic shunt (2018) <Rafat Teixeira MD - Last Filed: 02/02/23 06:01> Family History Family History: Family History (Reviewed 02/02/23 @ 14:
--- NOTE | 2023-02-02 07:22 | PC.NURSE ---
NIVIA ZENG gave approval to Dr. Teixeira approval to place NG tube.
--- NOTE | 2023-02-02 09:21 | PM.IMHP ---
H&P: HPI History of Present Illness Date/Time: 02/02/23 09:21 Chief Complaint: Nausea Narrative: This is a 57-year-old female with a past medical history of asthma, CVA, cirrhosis status post TIPS, diabetes, hypertension, hyperlipidemia, hypothyroidism, ALAYNA, and lupus. She presents to [facility] emergency room with complaints of nausea that is similar to the last time she had an upper GI bleed back in August. At that time she was transferred to [facility] and diagnosed with a Ruby-Vang tear for which a clip was placed. Her hemoglobin on arrival was 6.9. She received 3 units of packed red cells in the ER prior to going to the endoscopy suite with GI for an upper scope. Findings include small esophageal varices a in the distal half of the esophagus with no bleeding, 1 prior clip at the GE junction from prior Ruby-Vang tear with no bleeding, and active bleeding noted in the upper portion of the body of the stomach. Most consistent with gastric varix active bleeding. GI initiated transfer to [facility] for emergent intervention. Patient is seen in the ICU after her endoscopy. She has an NG tube to low intermittent wall suction with red output. She states that currently she has a headache and persistent nausea which is why she initially presented. She is alert and oriented x4 and is not complaining of pain at this time. She is uncomfortable from the NG tube. she does report intermittent dizziness and says that she had dizziness last night causing her to fall into her couch. She denies shortness of breath but does state that she has some intermittent chest pain that she contributes to anxiety. She has not had a bowel movement recently and her last bowel movement did not contain bright red or black tarry stool. She has been urinating appropriately. Her appetite has been poor but this is been an ongoing issue for some time. I reviewed with her and her sister plans to transfer to [facility] for urgent intervention and higher level of care. They are in agreement to transfer. Review of Systems Review of Systems: All systems reviewed & are unremarkable except as noted in HPI and below PMFSH Past Medical History Medical History Anxiety Arthritis Asthma Cerebrovascular accident (10/2005) Chronic pain Previously on methadone but this was discontinued in June of 2018. Cirrhosis Status post TIPS. [facility]ed at [facility]. Degenerative disc disease Depression Diet-controlled diabetes mellitus Essential hypertension Fibromyalgia On chronic pain medication Gastroesophageal reflux disease Gout Headaches due to old head injury Heart murmur Normal echocardiogram April 2017. Hyperlipemia Hypertension Hypothyroidism Irritable bowel disease Kidney stones Obstructive sleep apnea Portal vein thrombosis On chronic anticoagulation with Coumadin Systemic lupus erythematosus Type 2 diabetes mellitus with diabetic polyneuropathy Surgical History Surgical History History of carpal tunnel surgery of right wrist History of section History of hysterectomy In her early to mid 30's due to fibrotic disease. History of laparoscopic cholecystectomy (07/2016) History of transjugular intrahepatic portosystemic shunt (2018) Family History Family History Mother Hypertension Breast cancer Cerebrovascular accident Coronary artery disease Father Cerebrovascular accident Coronary artery disease With VT at 40 years old Social History Social History (Updated 02/02/23 @ 14:12 by Lillian Casillas APRN) Social History: Surrogate medical decision maker: Tarafabiola Gillespie, sister. Code status: Full code. Smoking status: Never smoker Second hand tobacco smoke exposure: No Alcohol intake: never Substance use: never Substance use type: does not use Lack of Transportation: No Lack
[2023-02-02] MEDS: PANTOPRAZOLE SODIUM IV 40 MG VIAL 80 MG IV PUSH (09:27)
[2023-02-02] MEDS: PANTOPRAZOLE SODIUM IV 80 MG in SODIUM CHLORIDE 0.9% IV 500 ML 50 MG IV CONT (09:27)
--- NOTE | 2023-02-02 09:40 | WPDGICN ---
Assessment and Plan Assessment and plan (1) Acute blood loss anemia: Code(s): D62 - Acute posthemorrhagic anemia Status: Acute Assessment and Plan: Patient with anemia felt to be secondary to blood loss given the findings of upper GI bleeding and coffee-ground material on NG tube lavage. Will plan EGD today. Cover with Protonix for now. (2) Acute upper gastrointestinal bleeding: Code(s): K92.2 - Gastrointestinal hemorrhage, unspecified Status: Acute Assessment and Plan: Patient appears to have upper GI bleeding manifested by coffee-ground NG tube return. EGD will be performed. Patient previously identified as having Ruby-Vang tear. She does have underlying cirrhosis. No evidence for varices at the time of last endoscopy. It was felt that these have been decompressed by tips procedure. (3) Cirrhosis: Code(s): K74.60 - Unspecified cirrhosis of liver Status: Acute Assessment and Plan: Patient with underlying cirrhosis. In the past has had difficulty with encephalopathy. Currently with recurrent upper GI bleeding. EGD will be performed today. Patient currently followed for her cirrhosis long-term at [facility]. GI Consult Note Consult date/time: 02/02/23 09:40 Reason for consult: Upper GI bleeding HPI: Liv Delong is a 57 year old female I am asked to see at the request of the emergency room because of upper GI bleeding. Patient has underlying history of cirrhosis of the liver. She is currently followed at [facility]. In his previously undergone tips procedure. Patient seen at our institution in August of this year at that time EGD was performed for upper GI blood loss. She was found to have a Ruby-Vang tear with active bleeding. She required clipping with multiple clips to get this to stop. Patient apparently remained in good health until yesterday when she began to be come nauseous. She states the feeling was the same as what she had in August. She presented to the emergency room where she was found to have a slight decline in hemoglobin to approximately 6. An NG tube placed this morning confirmed that she had coffee-ground dark bloody return. Patient's family who accompanies her states that she has continued to have difficulty with anemia followed at [facility]. They have been dissatisfied with the explanation for her anemia. Stools are noted to be Hemoccult negative in the ER. Review of Systems Review of Systems: Review of systems noncontributory. PMFSH Past Medical History Medical History Anxiety Arthritis Asthma Cerebrovascular accident (10/2005) Chronic pain Previously on methadone but this was discontinued in June of 2018. Cirrhosis Status post TIPS. Followed at [facility]. Degenerative disc disease Depression Diet-controlled diabetes mellitus Essential hypertension Fibromyalgia On chronic pain medication Gastroesophageal reflux disease Gout Headaches due to old head injury Heart murmur Normal echocardiogram April 2017. Hyperlipemia Hypertension Hypothyroidism Irritable bowel disease Kidney stones Obstructive sleep apnea Portal vein thrombosis On chronic anticoagulation with Coumadin Systemic lupus erythematosus Type 2 diabetes mellitus with diabetic polyneuropathy Surgical History Surgical History History of carpal tunnel surgery of right wrist History of section History of hysterectomy In her early to mid 30's due to fibrotic disease. History of laparoscopic cholecystectomy (07/2016) History of transjugular intrahepatic portosystemic shunt (2018) Family History Family History Mother Hypertension Breast cancer Cerebrovascular accident Coronary artery disease Father Cerebrovascu
--- NOTE | 2023-02-02 10:21 | PC.NURSE ---
Report given to iLllian in [place] [id number]
--- NOTE | 2023-02-02 10:21 | WPDANESEPPF ---
Anes - Initial Pre Proc Eval Procedure: Operation Date: 02/02/23 10:30 Proposed Procedures p Esophagogastroduodenoscopy - Osvaldo Chin MD Date/Time: 02/02/23 10:21 Surgeon: Jenny Jain DO Pre Op Diagnosis: UPPER GI HEMORRHAGE,ANEMIA Patient Data Age: 57 Gender: F Height: 1.68 m Weight: 106.8 kg Last Vital Signs Temp 36.6 C 02/02/23 07:50 Pulse 83 02/02/23 08:12 Resp 16 02/02/23 08:12 BP 130/50 L 02/02/23 08:46 Pulse Ox 98 02/02/23 08:46 O2 Del Method Room Air 02/01/23 23:12 Allergies Allergy/AdvReac Type Severity Reaction Status Date / Time fentanyl AdvReac Unknown N/V Verified 02/01/23 23:38 gi cocktail Allergy Intermediate Hives Uncoded 02/01/23 23:38 Home Medications Medication Instructions Recorded Confirmed Type potassium chloride 10 mEq 10 meq PO DAILY 01/20/19 09/14/22 History tablet,extended release furosemide 80 mg tablet 80 mg PO DAILY 04/06/19 09/14/22 History pantoprazole 40 mg tablet,delayed 40 mg PO QAM 04/06/19 09/14/22 History release rizatriptan 10 mg tablet 10 mg PO DAILY PRN Migraine 04/28/19 09/14/22 History Headache spironolactone 100 mg tablet 100 mg PO DAILY 04/28/19 09/14/22 History omega 1-hsc-ibe-fish oil 1,000 mg 1 cap PO DAILY 07/15/19 09/14/22 History (120 mg-180 mg) capsule (Fish Oil) levothyroxine 125 mcg tablet See Rx Instructions .Route 05/26/20 09/14/22 Rx .COMPLEX #30 tabs albuterol 90 mcg/actuation aerosol 180 mcg inhalation TID PRN dyspnea 08/19/20 09/14/22 History inhaler cyclobenzaprine 10 mg tablet 10 mg PO TID PRN muscle spasm #20 04/03/21 09/14/22 Rx tabs promethazine 25 mg tablet 25 mg PO TID PRN nausea and 06/05/21 09/14/22 Rx vomiting #10 tabs tamsulosin 0.4 mg capsule (Flomax) 0.4 mg PO DAILY #14 caps 06/05/21 09/14/22 Rx amlodipine 5 mg tablet 5 mg PO DAILY 09/14/22 09/14/22 History nortriptyline 10 mg capsule 10 mg PO DAILY 09/14/22 09/14/22 History ondansetron 4 mg disintegrating 4 mg PO Q6-8H PRN nausea and 09/14/22 09/14/22 Rx tablet vomiting #14 tabs rifaximin 550 mg tablet (Xifaxan) 550 mg PO DAILY 09/14/22 09/14/22 History cephalexin 500 mg capsule 500 mg PO Q6H 7 days #28 caps 12/23/22 Rx hydrocodone 5 mg-acetaminophen 325 1 tablet PO Q6H PRN pain #15 tabs 12/23/22 Rx mg tablet lidocaine 5 % topical patch 1 patch topical DAILY #15 ea 12/23/22 Rx Laboratory Tests 02/01/23 02/01/23 02/02/23 23:26 23:27 01:33 WBC 4.5 K/mm3 4.1 L K/mm3 (4.5-10.0) (4.5-10.0) RBC 3.18 L M/mm3 2.95 L M/mm3 (4.2-5.4) (4.2-5.4) Hgb 6.9 L* g/dL 6.5 L* g/dL (12.0-15.0) (12.0-15.0) Hct 24.0 L % 22.3 L % (37.0-47.0) (37.0-47.0) MCV 75.5 L fl 75.6 L fl (80-100) (80-100) MCH 21.7 L pg 22.0 L pg (26-34) (26-34) MCHC 28.8 L g/dl 29.1 L g/dl (32-36) (32-36) RDW 20.4 H % 20.2 H % (11.5-14.5) (11.5-14.5) Plt Count 146 L k/mm3 122 L k/mm3 (150-375) (150-375) MPV 10.1 fl 9.5 fl (7.4-10.4) (7.4-10.4) Immature Gran % (Auto) 0.4 % 0.2 % (0-0.5) (0-0.5) Neut % (Auto) 62.4 % 70.3 % (45.5-73.1) (45.5-73.1) Lymph % (Auto) 21.9 % 14.3 L % (18.3-44.2) (18.3-44.2) [place] % (Auto) 11.3 H % 12.6 H % (2.6-8.5) (2.6-8.5) Eos % (Auto) 3.1 % 1.9 % (0-4.4) (0-4.4) Baso % (Auto) 0.9 % 0.7 % (0.2-1.2) (0.2-1.2) Lymph # (Auto) 0.99 K/mm3 0.59 L K/mm3 (0.9-3.2) (0.9-3.2) [place] # (Auto) 0.5 K/mm3 0.5 K/mm3 (0.1-0.6) (0.1-0.6) Eos # (Auto) 0.1 K/mm3 0.1 K/mm3 (0-0.3) (0-0.3) Baso # (Auto) 0.0 K/mm3 0.0 K/mm3 (0.0-0.1) (0.0-0.1) Abs Immat Gran (auto) 0.02 K/mm3 0.01 K/mm3 (0.00-0.031) (0.00-0.031) Absolute Neuts (auto) 2.8 K/mm3 2.9 K/mm3 (1.3-6.7) (1.3-6.7) Absolute Nucleated RBC 0.0 K/mm3 0.0 K/mm3 (0.0-0.012) (0.0-0.012) Nucleated RBC % 0.0 % 0.0 % (0.0-0.2)
[2023-02-02] MEDS: LACTATED RINGERS 1,000 ML 150 ML IV CONT (11:01)
--- NOTE | 2023-02-02 13:00 | ADMGEN ---
This patient, Liv Delong, was admitted to Intensive Care Unit-3. Patient/family oriented to hospital policies and general routines including ID bracelet, bed and alarms, visiting hours, pain management, procedures, bathroom and other care routines, personal items, smoking policy, room service/diet, and visiting hours. Information on how to activate the Rapid Response Team has been discussed. Patient/Family are encouraged to report perceived risks to care and to ask questions if they do not understand what they are told or what they should do.
--- NOTE | 2023-02-02 13:10 | P.PCNBED_ITS ---
Procedures Central Line Placement Right Femoral: Central Line Date: 02/02/23 Central Line Time: 12:58 Discussed w/ the patient/family/POA,the placement of a central venous catheter, including its clinical necessity/indication & associated potential risks, benifits and alternatives.: Yes The patient/family/POA understand(s) and acknowledge(s) the need to proceed with central venous catheter insertion as an important element of the patient's clinical management.: Yes Consent: I have discussed with the patient and/or surrogate, the non-emergent placement of a central venous catheter, including its clinical necessity/indication and associated potential risks and complications. The patient and/or surrogate understand(s) and acknowledge(s) the need to proceed with central venous catheter insertion as an important element of the patient's clinical management. Time Out Performed: Yes Patient Position: supine Patient placed on monitor/pulse ox: Yes Provider Prep: mask, sterile gown, sterile gloves, Max. sterile barrier precautions and hand hygiene with conventional soap/water or alcohol based hand rub Central line prep: 2% Chlorhexidine scrub Local anesthesia used: lidocaine 1% Amount of anesthesia used (ml): 3 Sterile US Technique with sterile gel/sterile probe covers: Yes Central line lumen inserted: triple Bulgarian: 12 Length (cm): 16 Depth of Insertion (cm): 16 Post Procedure: sutured in place, good blood return, all ports aspirated, flushed, capped, transparent dressing, hemostatic product, antimicrobial product, securement product and aseptic technique maintained throughout procedure Complications: none
--- NOTE | 2023-02-02 13:12 | WPDCNINT ---
Assessment and Plan Assessment and plan (1) Acute upper gastrointestinal bleeding: Code(s): K92.2 - Gastrointestinal hemorrhage, unspecified Status: Acute Assessment and Plan: Patient presented with nausea vomiting and diarrhea which she thought was similar to when she had an GI bleed in August 2022 -NG tube was inserted and she had dark coffee-ground and bloody drainage -02/02/2023: EGD : found to have 1 very small esophageal varix extending the distal half of the esophagus with no stigmata of bleeding. Patient was noted to have 1 prior clip at the GE junction which she is reported to have a prior Ruby-Vang tear, no bleeding from this area. Active bleeding noted in the upper portion of the body of the stomach 3-5 cm from the gastric cardia. This is most consistent with gastric varix and active bleeding. According to the GI note this was not amenable to endoscopic therapy, injection cautery and clipping was not felt to be prudent for this type of bleeding. The GI physician called the transfer center at the tertiary center at [facility] and patient was accepted for urgent transfer. 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 Patient was on a Protonix infusion which was discontinued by GI Nutrition: NPO Code Status: Full code Critical Care Time Spent: 52 minutes Due to a high probability of clinically significant, life threatening deterioration, the patient required my highest level of preparedness to intervene emergently and I personally spent this critical care time directly and personally managing the patient. This critical care time included obtaining a history; examining the patient; pulse oximetry; ordering and review of studies; arranging urgent treatment with development of a management plan; evaluation of patient's response to treatment; frequent reassessment; and discussions with other providers. It was exclusive of separately billable procedures and treating other patients and teaching time. Please see Assessment and Plan section and the rest of the note for further information on patient assessment and treatment This dictation may have been done utilizing a voice recognition system. Attempts have been made to correct errors. However, there may be uncorrected grammatical, spelling, and recognitions errors present. Driver License Agent Consult Note Consult date: 02/02/23 Reason for consult: GI bleed, severe anemia, gastric varices HPI: Liv Delong is a 57 year old female arthritis, anxiety, asthma, cirrhosis status post tips, followed at counts include [facility] beds at the [facility], revise tear, degenerative disc disease, depression, diabetes, essential hypertension, fibromyalgia, hyperlipidemia, hypothyroidism, obstructive sleep apnea, SLE presented the ED 02/01/2023 with complains of nausea, vomiting, diarrhea and was found to have upper GI bleeding as evident with coffee-ground emesis and bright red blood after an NG tube was inserted. Also severe anemia, with a hemoglobin of 6.9 on admission, ana
--- NOTE | 2023-02-02 13:19 | PC.NURSE ---
RN and MD present at bedside at 1240. CVC access established at 1259 to right femoral vein per MD. Consent obtained prior to procedure.
--- NOTE | 2023-02-02 13:53 | SUR.PHASEII ---
1145- Verbal orders received from Dr. Chin to infuse 2 units PRBCs and start on Octreotide. Orders put in. 1205- Infusion of PRBC started with Favio, malthouse laborer. 1225- Pt stable. Will start octreotide in ICU. Transferred up to ICU3.
--- NOTE | 2023-02-02 14:15 | PM.TDS ---
Transfer Discharge Sum: Prov Provider Date of admission: 02/02/23 08:37 Primary care physician: Amor Arboleda, DO Admitting clinician: Jenny Jain DO Consults: 02/02/23 Consult to Physician Routine Comment: Consulting Provider: Osvaldo Chin Reason for consultation: upper GI bleeding Has provider been notified: Yes DS: Admitting Diagnosis Discharge Date 02/02 Admitting Diagnosis nausea DS: Discharge Diagnosis Discharge Diagnosis (1) Acute upper gastrointestinal bleeding: Code(s): K92.2 - Gastrointestinal hemorrhage, unspecified Status: Acute Assessment and Plan: Patient presented with nausea vomiting and diarrhea which she thought was similar to when she had an GI bleed in August 2022 -NG tube was inserted and she had dark coffee-ground and bloody drainage -02/02/2023: EGD : found to have 1 very small esophageal varix extending the distal half of the esophagus with no stigmata of bleeding. Patient was noted to have 1 prior clip at the GE junction which she is reported to have a prior Ruby-Vang tear, no bleeding from this area. Active bleeding noted in the upper portion of the body of the stomach 3-5 cm from the gastric cardia. This is most consistent with gastric varix and active bleeding. According to the GI note this was not amenable to endoscopic therapy, injection cautery and clipping was not felt to be prudent for this type of bleeding. The GI physician called the transfer center at the tertiary center at [facility] and patient was accepted for urgent transfer. 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 Transferring to room 419. Transfer Discharge Sum: Med Medications Active and Home Medications: Home Medications potassium chloride 10 mEq tablet,extended release 10 meq PO DAILY 01/20/19 [History Confirmed 09/14/22] furosemide 80 mg tablet 80 mg PO DAILY 04/06/19 [History Confirmed 09/14/22] pantoprazole 40 mg tablet,delayed release 40 mg PO QAM 04/06/19 [History Confirmed 09/14/22] rizatriptan 10 mg tablet 10 mg PO DAILY PRN Migraine Headache 04/28/19 [History Confirmed 09/14/22] spironolactone 100 mg tablet 100 mg PO DAILY 04/28/19 [History Confirmed 09/14/22] omega 9-wqy-qga-fish oil 1,000 mg (120 mg-180 mg) capsule (Fish Oil) 1 cap PO DAILY 07/15/19 [History Confirmed 09/14/22] levothyroxine 125 mcg tablet See Rx Instructions .Route .COMPLEX #30 tabs 05/26/20 [Rx Confirmed 09/14/22] albuterol 90 mcg/actuation aerosol inhaler 180 mcg inhalation TID PRN dyspnea 08/19/20 [History Confirmed 09/14/22] cyclobenzaprine 10 mg tablet 10 mg PO TID PRN muscle spasm #20 tabs 04/03/21 [Rx Confirmed 09/14/22] promethazine 25 mg tablet 25 mg PO TID PRN nausea and vomiting #10 tabs 06/05/21 [Rx Confirmed 09/14/22] tamsulosin 0.4 mg capsule (Flomax) 0.4 mg PO DAILY #14 caps 06/05/21 [Rx Confirmed 09/14/22] amlodipine 5 mg tablet 5 mg PO DAILY 09/14/22 [History Confirmed 09/14/22] nortriptyline 10 mg capsule 10 mg PO DAILY 09/14/22 [H
--- NOTE | 2023-02-02 14:28 | PC.NURSE ---
[facility] team at bedside with this RN, patient to transfer to [facility]. Patient removed from hospital monitoring devices and placed on [facility] team monitoring devices for vitals.
== END 2023-02-02 14:52 | disposition short-term general hospital (02) | DRG 378 ==
LOC: ANHED 02-02 00:27 → ANHIMU 02-02 10:50 → ANHICU 02-04 14:59 → ANHIMU 02-04 14:59
PROVIDERS: Internal Medicine Gastroenterology; Admitting Provider Student in an Organized Health Care Education/Training Program; Emergency Provider Emergency Medicine; PCP Student in an Organized Health Care Education/Training Program; Visit Provider Nurse Practitioner Acute Care
PROC: 0DJ08ZZ Inspection of Upper Intestinal Tract, Via Natural or Artificial Opening Endoscopic (ICD-10-PCS; CPT 43235; principal; 2023-02-02 10:30)
DX: K92.2 Gastrointestinal hemorrhage, unspecified (principal); D62 Acute posthemorrhagic anemia; N39.0 Urinary tract infection, site not specified; N10 Acute pyelonephritis; B96.20 Unspecified Escherichia coli [E. coli] as the cause of diseases classified elsewhere; E78.5 Hyperlipidemia, unspecified; E03.9 Hypothyroidism, unspecified; E11.42 Type 2 diabetes mellitus with diabetic polyneuropathy; F41.9 Anxiety disorder, unspecified; G47.33 Obstructive sleep apnea (adult) (pediatric); I86.4 Gastric varices; I10 Essential (primary) hypertension; I85.00 Esophageal varices without bleeding; J45.909 Unspecified asthma, uncomplicated; M32.9 Systemic lupus erythematosus, unspecified; M10.9 Gout, unspecified; K75.81 Nonalcoholic steatohepatitis (NASH); K74.60 Unspecified cirrhosis of liver; M19.90 Unspecified osteoarthritis, unspecified site; K21.9 Gastro-esophageal reflux disease without esophagitis; R42 Dizziness and giddiness; Z86.718 Personal history of other venous thrombosis and embolism; Z79.01 Long term (current) use of anticoagulants; Z97.8 Presence of other specified devices; Z86.73 Personal history of transient ischemic attack (TIA), and cerebral infarction without residual deficits
CPT/HCPCS: 36415; 36430; 74177; 80053; 81001; 83605; 83690; 83735; 84145; 85014; 85018; 85025; 85610; 85730; 86850; 86900; 86901; 86923; 87077; 87086; 87186; 99285; C1751; C9113; J2001; J2354; J2405; J2704; J7040; J7050; J7120; P9016; Q9967

== ENCOUNTER 2023-04-02 20:20 | Emergency (ER) | payer MEDICARE, MEDICAID, SELFPAY ==
[2023-04-02] VITALS (10 sets, daily range): BP systolic 112–138; BP diastolic 46–62; PULSE 73–105; RESP 16–24; TEMP 36.4–36.6; O2SAT 98–100
--- NOTE | ~2023-04-02 | XR_ITS ---
EXAMINATION: XR chest 1V portable DATE: 04/02/2023 20:48 INDICATION: Bleeding esophageal varices TECHNIQUE: frontal view of the chest was obtained. COMPARISON: Chest radiograph dated 12/23/2022 FINDINGS: Small focus of chronic atelectasis/scarring at the midpoint of the right hemidiaphragm. No other airs pace opacities, pulmonary edema, pleural effusion or pneumothorax. The cardiomediastinal silhouette i s normal. Persistent small metallic foreign body situated over the epigastric region. IMPRESSION: 1. No acute cardiopulmonary disease. Reviewed, dictated and finalized at location A. COUNTER AND WRAPPER
--- NOTE | 2023-04-02 20:45 | ED.GENADULT ---
HPI - General Adult General Chief complaint: Syncope Stated complaint: coffee ground emesis History of Present Illness HPI narrative: This is a 57-year-old female with history of liver cirrhosis, tips procedure and varicele bleeding. EMS was called house for coffee-ground emesis. When they arrived patient was vomiting dark red blood. She also had a syncopal event at this time. Patient was discharged [facility] 2 weeks ago after a tips revision. Patient states that this has happened in the past and she has required esophageal banding. Related Data Home Medications Medication Instructions Recorded Confirmed potassium chloride 10 mEq 10 meq PO DAILY 01/20/19 09/14/22 tablet,extended release furosemide 80 mg tablet 80 mg PO DAILY 04/06/19 09/14/22 pantoprazole 40 mg tablet,delayed 40 mg PO QAM 04/06/19 09/14/22 release rizatriptan 10 mg tablet 10 mg PO DAILY PRN Migraine 04/28/19 09/14/22 Headache spironolactone 100 mg tablet 100 mg PO DAILY 04/28/19 09/14/22 omega 8-psm-dxv-fish oil 1,000 mg 1 cap PO DAILY 07/15/19 09/14/22 (120 mg-180 mg) capsule (Fish Oil) albuterol 90 mcg/actuation aerosol 180 mcg inhalation TID PRN dyspnea 08/19/20 09/14/22 inhaler amlodipine 5 mg tablet 5 mg PO DAILY 09/14/22 09/14/22 nortriptyline 10 mg capsule 10 mg PO DAILY 09/14/22 09/14/22 rifaximin 550 mg tablet (Xifaxan) 550 mg PO DAILY 09/14/22 09/14/22 Allergies Allergy/AdvReac Type Severity Reaction Status Date / Time fentanyl AdvReac Unknown N/V Verified 04/02/23 20:40 gi cocktail Allergy Intermediate Hives Uncoded 02/01/23 23:38 [facility] Past Medical History Medical History Anxiety Arthritis Asthma Cerebrovascular accident (10/2005) Chronic pain Previously on methadone but this was discontinued in June of 2018. Cirrhosis Status post TIPS. [facility] Degenerative disc disease Depression Diet-controlled diabetes mellitus Essential hypertension Fibromyalgia On chronic pain medication Gastroesophageal reflux disease Gout Headaches due to old head injury Heart murmur Normal echocardiogram April 2017. Hyperlipemia Hypertension Hypothyroidism Irritable bowel disease Kidney stones Obstructive sleep apnea Portal vein thrombosis On chronic anticoagulation with Coumadin Systemic lupus erythematosus Type 2 diabetes mellitus with diabetic polyneuropathy Surgical History Surgical History History of carpal tunnel surgery of right wrist History of section History of hysterectomy In her early to mid 30's due to fibrotic disease. History of laparoscopic cholecystectomy (07/2016) History of transjugular intrahepatic portosystemic shunt (2018) Family History Family History Mother Hypertension Breast cancer Cerebrovascular accident Coronary artery disease Father Cerebrovascular accident Coronary artery disease With [place] at 40 years old Social History Social History Social History: Surrogate medical decision maker: Tara Michelmonicaroney, sister. Code status: Full code. Smoking status: Never smoker Second hand tobacco smoke exposure: No Alcohol intake: never Substance use: never Substance use type: does not use Lack of Transportation: No Lack of Food: Never True Current Housing: I Have Housing Concerned About Future Housing: No Difficulty Paying Gas/Electric Bills: No Difficulty Paying for Meds: No Currently Unemployed: No Education: Decline to Answer Difficulty w/ Childcare or Family Care: No Living arrangements: alone Occupation/Education: other Additional occupation/education comments: Disability Spiritual care concerns: No Agree to blood products: Yes Exam Narrative: APPEARANCE: Patient appears chronically unwell, there was coffee-
[2023-04-02 20:47] LABS: Basophils Absolute Auto 0.1 K/mm3 (0.0-0.1); Basophils Percent Auto 1.3 % (0.2-1.2); Eosinophils Absolute Auto 0.3 K/mm3 (0-0.3); Eosinophils Percent Auto 5.1 % (0-4.4); Hematocrit 21.7 % (37.0-47.0); Immature Granulocyte Absolute 0.01 K/mm3 (0.00-0.031); Immature Granulocyte Percent A 0.2 % (0-0.5); Lymphocytes Absolute Auto 2.18 K/mm3 (0.9-3.2); Mean Corpuscular Hemoglobin 25.5 pg (26-34); Mean Corpuscular Volume 87.9 fl (80-100); Mean Platelet Volume 10.3 fl (7.4-10.4); Monocytes Absolute Auto 0.7 K/mm3 (0.1-0.6); Monocytes Percent Auto 11.9 % (2.6-8.5); Neutrophils Absolute Auto 2.8 K/mm3 (1.3-6.7); Neutrophils Percent Auto 45.5 % (45.5-73.1); Platelet Count Result 180 k/mm3 (150-375); Red Blood Count 2.47 M/mm3 (4.2-5.4); Red Cell Distribution Width 18.7 % (11.5-14.5); White Blood Count 6.1 K/mm3 (4.5-10.0)
[2023-04-02] MEDS: METOCLOPRAMIDE HCL INJ 10 MG/2 ML VIAL IV PUSH (20:49)
[2023-04-02] MEDS: PANTOPRAZOLE SODIUM IV 40 MG VIAL 80 MG IV PUSH (20:49)
[2023-04-02 20:50] LABS: Hemoglobin 6.3 g/dL (12.0-15.0)
[2023-04-02 21:00] LABS: INR 1.6; Prothrombin Time 19.8 Seconds (11.1-14.7)
[2023-04-02 21:01] LABS: Partial Thromboplastin Time 38.6 SECONDS (22.3-36.8)
[2023-04-02 21:09] LABS: Platelet Estimate Adequate (Adequate)
[2023-04-02 21:10] LABS: Alanine Aminotransferase 30 U/L (6-35); Albumin Level 1.8 g/dL (3.5-5.1); Alkaline Phosphatase 94 U/L (38-126); Anion Gap 4 mmol/L (8-16); Aspartate Amino Transferase 64 U/L (14-36); Blood Urea Nitrogen 18 mg/dL (7-17); Calcium 7.5 mg/dL (8.4-10.2); Carbon Dioxide 20 mmol/L (22-30); Chloride 118 mmol/L (98-107); Estimated CRCL calculation 130 ml/min; Estimated Glomerular Filt Rate > 60; Glucose 85 mg/dL (65-110); Potassium 3.9 mmol/L (3.4-5.0); Sodium 142 mmol/L (137-145)
[2023-04-02 21:11] LABS: Hypochromasia 1+ (NORMAL); Schistocytes None Seen (NORMAL)
[2023-04-02 21:11] LABS: Lactic Acid Reflex 3.2 mmol/L (0.7-2.0)
[2023-04-02 21:12] LABS: Anisocytosis 2+ (NORMAL)
[2023-04-02] MEDS: SODIUM CHLORIDE 0.9% IV 250 ML 30 ML IV CONT (21:14)
[2023-04-02] MEDS: TUBING, BLOOD SET 1 EACH XX (21:14)
[2023-04-02] MEDS: TUBING, BLOOD SET 2 EACH XX (21:14)
--- NOTE | 2023-04-02 21:32 | ECG_ITS ---
Measurements Intervals [place] Rate: 79 P: 16 TX: 110 QRS: 3 QRSD: 106 T: 18 QT: 416 QTc: 479 Interpretive Statements SINUS RHYTHM WITH SHORT TX INTERVAL COMPARED TO ECG 12/23/2022 19:51:28 NO SIGNIFICANT CHANGES Electronically Signed On 04-03-2023 13:57:36 ADMINISTRATIVE ACCOUNTANT by Sulma Day M.D.
[2023-04-02] MEDS: OCTREOTIDE ACETATE 50 MCG/ML VIAL IV PUSH (21:51)
[2023-04-02] MEDS: ONDANSETRON INJ 4 MG/2 ML VIAL 8 MG IV PUSH (22:16)
[2023-04-02 23:44] LABS: Reflex Lactic Acid Yes or No Add Lactic
== END 2023-04-02 22:19 | disposition short-term general hospital (02) ==
PROVIDERS: Physician Assistant; Emergency Provider Emergency Medicine; PCP Student in an Organized Health Care Education/Training Program
DX: K92.2 Gastrointestinal hemorrhage, unspecified (principal); K74.60 Unspecified cirrhosis of liver; J45.909 Unspecified asthma, uncomplicated; E11.42 Type 2 diabetes mellitus with diabetic polyneuropathy; E78.5 Hyperlipidemia, unspecified; E03.9 Hypothyroidism, unspecified; I10 Essential (primary) hypertension; K58.9 Irritable bowel syndrome, unspecified; G47.33 Obstructive sleep apnea (adult) (pediatric); M32.9 Systemic lupus erythematosus, unspecified; M19.90 Unspecified osteoarthritis, unspecified site; F41.9 Anxiety disorder, unspecified; Z87.442 Personal history of urinary calculi; Z90.710 Acquired absence of both cervix and uterus; Z90.49 Acquired absence of other specified parts of digestive tract
CPT/HCPCS: 36415; 36430; 71045; 80053; 83605; 85025; 85610; 85730; 86850; 86900; 86901; 86920; 93005; 96365; 96375; 99285; C9113; J0696; J2354; J2405; J2765; J7050; P9016

== ENCOUNTER 2023-05-10 20:19 | Emergency (ER) | payer MEDICARE, MEDICAID, SELFPAY ==
[2023-05-10] VITALS (19 sets, daily range): BP systolic 106–135; BP diastolic 34–67; PULSE 76–108; RESP 12–20; TEMP 36.7–36.9; O2SAT 95–100
--- NOTE | ~2023-05-10 | XR_ITS ---
EXAMINATION: XR chest 1V portable DATE: 05/10/2023 20:56 INDICATION: Hematemesis. TECHNIQUE: A single frontal view of the chest was obtained. COMPARISON: Chest single view 04/02/2023 FINDINGS: There is no pneumonia, pleural effusion, or pneumothorax. The heart size is normal. There a re embolization coils in the abdomen. IMPRESSION: 1. No acute cardiopulmonary disease. Reviewed, dictated and finalized at location E.
--- NOTE | 2023-05-10 20:25 | ECG_ITS ---
Measurements Intervals [place] Rate: 99 P: 43 WI: 124 QRS: 7 QRSD: 92 T: 30 QT: 365 QTc: 469 Interpretive Statements SINUS RHYTHM CONSIDER INFERIOR INFARCT, AGE INDETERMINATE BASELINE WANDER- V3 ABNORMAL ECG COMPARED TO ECG 04/02/2023 21:40:27 NO SIGNIFICANT CHANGES Electronically Signed On 05-11-2023 9:41:45 CDT by Faizan Cedillo D.O.
[2023-05-10] MEDS: PANTOPRAZOLE SODIUM IV 40 MG VIAL 80 MG IV PUSH (20:39)
[2023-05-10] MEDS: METOCLOPRAMIDE HCL INJ 10 MG/2 ML VIAL IV PUSH (20:40)
[2023-05-10] MEDS: OCTREOTIDE ACETATE 50 MCG/ML VIAL IV PUSH (20:40)
--- NOTE | 2023-05-10 20:41 | ED.GENADULT ---
HPI - General Adult General Chief complaint: GI Bleed Stated complaint: dark tarry stool Time Seen by Provider: 05/10/23 20:27 History of Present Illness HPI narrative: This is a 57-year-old female with history of liver cirrhosis tips procedure multiple GI bleeds presenting for dark tarry stools. While the patient was enroute via ambulance she started coffee-ground emesis. Patient is complaining of burning epigastric pain denies fevers chills chest pain difficulty breathing. Patient recently had her tips procedure revised @ [facility]. Related Data Home Medications Medication Instructions Recorded Confirmed potassium chloride 10 mEq 10 meq PO DAILY 01/20/19 09/14/22 tablet,extended release furosemide 80 mg tablet 80 mg PO DAILY 04/06/19 09/14/22 pantoprazole 40 mg tablet,delayed 40 mg PO QAM 04/06/19 09/14/22 release rizatriptan 10 mg tablet 10 mg PO DAILY PRN Migraine 04/28/19 09/14/22 Headache spironolactone 100 mg tablet 100 mg PO DAILY 04/28/19 09/14/22 omega 0-ade-zea-fish oil 1,000 mg 1 cap PO DAILY 07/15/19 09/14/22 (120 mg-180 mg) capsule (Fish Oil) albuterol 90 mcg/actuation aerosol 180 mcg inhalation TID PRN dyspnea 08/19/20 09/14/22 inhaler amlodipine 5 mg tablet 5 mg PO DAILY 09/14/22 09/14/22 nortriptyline 10 mg capsule 10 mg PO DAILY 09/14/22 09/14/22 rifaximin 550 mg tablet (Xifaxan) 550 mg PO DAILY 09/14/22 09/14/22 Allergies Allergy/AdvReac Type Severity Reaction Status Date / Time fentanyl AdvReac Unknown N/V Verified 05/13/23 15:09 gi cocktail Allergy Intermediate Hives Uncoded 05/13/23 15:09 [facility] Past Medical History Medical History Anxiety Arthritis Asthma Cerebrovascular accident (10/2005) Chronic pain Previously on methadone but this was discontinued in June of 2018. Cirrhosis Status post TIPS. Followed at [facility]. Degenerative disc disease Depression Diet-controlled diabetes mellitus Essential hypertension Fibromyalgia On chronic pain medication Gastroesophageal reflux disease Gout Headaches due to old head injury Heart murmur Normal echocardiogram April 2017. Hyperlipemia Hypertension Hypothyroidism Irritable bowel disease Kidney stones Obstructive sleep apnea Portal vein thrombosis On chronic anticoagulation with Coumadin Systemic lupus erythematosus Type 2 diabetes mellitus with diabetic polyneuropathy Surgical History Surgical History History of carpal tunnel surgery of right wrist History of section History of hysterectomy In her early to mid 30's due to fibrotic disease. History of laparoscopic cholecystectomy (07/2016) History of transjugular intrahepatic portosystemic shunt (2018) Family History Family History Mother Hypertension Breast cancer Cerebrovascular accident Coronary artery disease Father Cerebrovascular accident Coronary artery disease With [place] at 40 years old Social History Social History (System 05/13/23 @ 15:09 by Mikhail Mcclendon) Social History: Surrogate medical decision maker: Tara Gillespie, sister. Code status: Full code. Smoking status: Never smoker Second hand tobacco smoke exposure: No Alcohol intake: never Substance use: never Substance use type: does not use Lack of Transportation: No Lack of Food: Never True Current Housing: I Have Housing Concerned About Future Housing: No Difficulty Paying Gas/Electric Bills: No Difficulty Paying for Meds: No Currently Unemployed: No Education: Decline to Answer Difficulty w/ Childcare or Family Care: No Living arrangements: alone Occupation/Education: other Additional occupation/education comments: Disability Spiritual care concerns: No Agree to blood products: Yes Exam Narrative: APPEARANCE: Patient vomiting into a vomit bag coffee-ground emesi
--- NOTE | 2023-05-10 20:48 | PC.NURSE ---
Pt has had x2 dark red/clotty emesis since arriving to facility both being 400mL.
[2023-05-10 20:49] LABS: Basophils Absolute Auto 0.1 K/mm3 (0.0-0.1); Basophils Percent Auto 1.2 % (0.2-1.2); Eosinophils Absolute Auto 0.3 K/mm3 (0-0.3); Eosinophils Percent Auto 6.6 % (0-4.4); Hematocrit 23.6 % (37.0-47.0); Immature Granulocyte Absolute 0.01 K/mm3 (0.00-0.031); Immature Granulocyte Percent A 0.2 % (0-0.5); Lymphocytes Absolute Auto 1.42 K/mm3 (0.9-3.2); Lymphocytes Percent Auto 27.7 % (18.3-44.2); Mean Corpuscular HGB Conc 29.7 g/dl (32-36); Mean Corpuscular Hemoglobin 25.3 pg (26-34); Mean Corpuscular Volume 85.2 fl (80-100); Mean Platelet Volume 10.1 fl (7.4-10.4); Monocytes Absolute Auto 0.4 K/mm3 (0.1-0.6); Monocytes Percent Auto 7.4 % (2.6-8.5); Neutrophils Absolute Auto 2.9 K/mm3 (1.3-6.7); Neutrophils Percent Auto 56.9 % (45.5-73.1); Platelet Count Result 167 k/mm3 (150-375); Red Blood Count 2.77 M/mm3 (4.2-5.4); Red Cell Distribution Width 18.2 % (11.5-14.5); White Blood Count 5.1 K/mm3 (4.5-10.0)
[2023-05-10 20:58] LABS: Anisocytosis 1+ (NORMAL); Hypochromasia 1+ (NORMAL); Microcytosis 1+ (NORMAL); Platelet Estimate Adequate (Adequate)
[2023-05-10 20:59] LABS: INR 1.4; Prothrombin Time 17.9 Seconds (11.1-14.7); Schistocytes None Seen (NORMAL)
[2023-05-10 21:00] LABS: Partial Thromboplastin Time 39.2 SECONDS (22.3-36.8)
[2023-05-10 21:01] LABS: Alanine Aminotransferase 29 U/L (6-35); Albumin Level 1.9 g/dL (3.5-5.1); Alkaline Phosphatase 116 U/L (38-126); Anion Gap -1 mmol/L (8-16); Aspartate Amino Transferase 65 U/L (14-36); Blood Urea Nitrogen 13 mg/dL (7-17); Calcium 7.7 mg/dL (8.4-10.2); Carbon Dioxide 24 mmol/L (22-30); Chloride 115 mmol/L (98-107); Estimated CRCL calculation 114 ml/min; Estimated Glomerular Filt Rate > 60; Glucose 88 mg/dL (65-110); Potassium 3.7 mmol/L (3.4-5.0); Sodium 138 mmol/L (137-145)
[2023-05-10] MEDS: ONDANSETRON INJ 4 MG/2 ML VIAL IV PUSH ×2 (21:03→22:07)
--- NOTE | 2023-05-10 22:06 | PC.NURSE ---
EDP Dr. Ary DICKENS Zofran 4mg IVP to treat pt c/o nausea.
[2023-05-10] MEDS: TUBING, BLOOD SET 1 EACH XX (22:07)
[2023-05-10] MEDS: SODIUM CHLORIDE 0.9% IV 250 ML 30 ML IV CONT (22:07)
[2023-05-11] VITALS (51 sets, daily range): BP systolic 109–134; BP diastolic 24–90; PULSE 71–95; RESP 8–20; TEMP 36.3–36.8; O2SAT 94–100
[2023-05-11 05:11] LABS: Hematocrit 25.2 % (37.0-47.0); Hemoglobin 7.2 g/dL (12.0-15.0)
--- NOTE | 2023-05-11 07:14 | PC.NURSE ---
Report given to ABRIL Rojo at this time.
--- NOTE | 2023-05-11 08:29 | PC.NURSE ---
blood consent signed and in paper chart
[2023-05-11] MEDS: SODIUM CHLORIDE 0.9% IV 250 ML 30 ML IV CONT (08:42)
[2023-05-11] MEDS: TUBING, BLOOD SET 1 EACH XX (08:42)
--- NOTE | 2023-05-11 09:30 | PC.NURSE ---
patient resting at this time. tolerating blood transfusion. lungs clear. vital signs stable
[2023-05-11 11:20] LABS: Hematocrit 25.3 % (37.0-47.0); Hemoglobin 7.7 g/dL (12.0-15.0)
--- NOTE | 2023-05-11 15:43 | PC.NURSE ---
attempted to call report to [facility]. states they will call back for report.
== END 2023-05-11 17:01 | disposition short-term general hospital (02) ==
PROVIDERS: Emergency Provider Emergency Medicine; PCP Student in an Organized Health Care Education/Training Program
DX: K74.60 Unspecified cirrhosis of liver (principal); K92.2 Gastrointestinal hemorrhage, unspecified; I10 Essential (primary) hypertension; E78.5 Hyperlipidemia, unspecified; E03.9 Hypothyroidism, unspecified; Z86.73 Personal history of transient ischemic attack (TIA), and cerebral infarction without residual deficits
CPT/HCPCS: 36415; 36430; 71045; 80053; 85014; 85018; 85025; 85610; 85730; 86850; 86900; 86901; 86923; 93005; 96365; 96366; 96367; 96375; 96376; 99285; C9113; J0696; J2354; J2405; J2765; J7050; P9016

== ENCOUNTER 2024-03-27 06:25 | Inpatient (IN) | payer MEDICARE, MEDICAID, SELFPAY ==
[2024-03-27] VITALS (33 sets, daily range): BP systolic 107–204; BP diastolic 72–97; PULSE 84–104; RESP 10–21; TEMP 36.5; O2SAT 93–100
--- NOTE | ~2024-03-27 | CT_ITS ---
EXAMINATION: CT abdomen pelvis w con DATE: 03/27/2024 08:18 INDICATION: Cirrhosis, nausea, vomiting and diarrhea. TECHNIQUE: Computed tomography (CT) of the abdomen and pelvis was performed with 100 mL Omnipaque-350 intravenous contrast. Automated exposure control and iterative reconstruction technique were employe d. The dose-length product was 1250.13 mGy-cm. COMPARISON: 02/02/2023 FINDINGS: Lung bases are clear. Heart size is normal. No pericardial or pleural effusion. Small sliding-type hi atal hernia. Shrunken and nodular cirrhotic liver with change of prior TIPS procedure with contrast opacified shun t. Interval progression in degree of dilation of intrahepatic biliary ductal dilation in the medial s egment of the left hepatic lobe. Cholecystectomy clips the gallbladder fossa. Multiple embolization coils in the left upper quadrant, some unchanged at the splenic hilum and a few along the body and tail of the pancreas which appear new since the prior study. Interval development of heterogeneous pancreatic atrophy with a couple 4-5 cm loculated perisplenic fluid collections. Th is could represent sequela of interval splenic infarct potentially related to the interval embolizati on. Pancreas, bilateral adrenal glands and right kidney are normal. There are 3 nonobstructing 2-3 mm sto mireya in the left kidney. Subcentimeter cyst lower pole the left kidney. Bowels including the appendix are normal. Small amount of ascites in the pelvis. Bladder is normal. The uterus is not identified an d has likely been surgically resected. Bilateral adnexa are unremarkable. No pathologically enlarged abdominal or pelvic lymphadenopathy. Moderate thoracic and lower lumbar spondylosis. IMPRESSION: 1. Cirrhotic liver with patent TIPS procedure. Increasing severity for local intrahepatic biliary taz delbert dilation in segment 4A of the liver with transition point along side the TIPS suggesting secondar y biliary obstruction. 2. New heterogeneous pattern of splenic activity with a couple loculated perisplenic cysts which sugg ests sequela of chronic infarct related to interval progressive splenic vascular embolization. 3. Small sliding-type hernia. 4. Nonobstructing left nephrolithiasis. 5. Small amount of pelvic ascites. Reviewed, dictated and finalized at location [facility] [employer] IMPRESSION: 1. Cirrhotic liver with patent TIPS procedure. Increasing severity for local in trahepatic biliary ductal dilation in segment 4A of the liver with transition p oint along side the TIPS suggesting secondary biliary obstruction. 2. New heterogeneous pattern of splenic activity with a couple loculated perisp lenic cysts which suggests sequela of chronic infarct related to interval progr essive splenic vascular embolization. 3. Small sliding-type hernia. 4. Nonobstructing left nephrolithiasis. 5. Small amount of pelvic ascites.
[2024-03-27 06:39] LABS: Basophils Absolute Auto 0.1 K/mm3 (0.0-0.1); Basophils Percent Auto 0.9 % (0.2-1.2); Eosinophils Percent Auto 0.2 % (0-4.4); Hematocrit 47.6 % (37.0-47.0); Hemoglobin 16.4 g/dL (12.0-15.0); Immature Granulocyte Absolute 0.02 K/mm3 (0.00-0.031); Immature Granulocyte Percent A 0.3 % (0-0.5); Lymphocytes Absolute Auto 0.71 K/mm3 (0.9-3.2); Lymphocytes Percent Auto 12.1 % (18.3-44.2); Mean Corpuscular HGB Conc 34.5 g/dl (32-36); Mean Corpuscular Hemoglobin 32.5 pg (26-34); Mean Corpuscular Volume 94.3 fl (80-100); Mean Platelet Volume 10.8 fl (7.4-10.4); Monocytes Absolute Auto 0.3 K/mm3 (0.1-0.6); Neutrophils Absolute Auto 4.8 K/mm3 (1.3-6.7); Neutrophils Percent Auto 81.5 % (45.5-73.1); Platelet Count Result 207 k/mm3 (150-375); Red Blood Count 5.05 M/mm3 (4.2-5.4); Red Cell Distribution Width 18.7 % (11.5-14.5); White Blood Count 5.9 K/mm3 (4.5-10.0)
[2024-03-27 07:11] LABS: Alanine Aminotransferase 72 U/L (6-35); Albumin Level 3.5 g/dL (3.5-5.1); Alkaline Phosphatase 257 U/L (38-126); Anion Gap 10 mmol/L (4-12); Aspartate Amino Transferase 156 U/L (14-36); Bilirubin,Total 2.1 mg/dL (0.2-1.3); Blood Urea Nitrogen 11 mg/dL (7-17); Calcium 8.5 mg/dL (8.4-10.2); Carbon Dioxide 20 mmol/L (22-30); Chloride 107 mmol/L (98-107); Estimated CRCL calculation 135 ml/min; Estimated Glomerular Filt Rate > 60; Glucose 119 mg/dL (65-110); Lipase 111 U/L (23-300); Potassium 4.4 mmol/L (3.4-5.0); Sodium 137 mmol/L (137-145)
[2024-03-27] MEDS: ONDANSETRON INJ 4 MG/2 ML VIAL IV PUSH ×2 (07:13→07:58)
--- OUTSIDE RECORDS SUMMARY | 2024-03-27 07:28 | XMS_ITS | Referral Summary ---
Author Organization [facility] Address [address] [place] [address] Care Team Providers Care Brick Carrier Name Role Phone Nelly Ozuna BILLING CUSTOMER SERVICE REPRESENTATIVE-FILM REPLACEMENT ORDERER Unavailable [phone] Amor Arboleda DO Primary Care Provider + Source Comments [facility],non-owned Affiliates and Associated Physician Practices is amultiple site organization consisting of ambulatory clinics and hospital sitesin [place], [place], [place] and [place]. This disclosure is being madepursuant to the Care Everywhere program and may not contain all information available regarding this patient. Last updated 17.[facility] Encounters Date Type Department Care Team Description 02/13/2024 Travel 02/13/2024 9:34 AM READING AIDE Anesthesia Event [facility] [address] [place] [address] Gonzales Irving DO Dobbs, Kristin L, BILLING CUSTOMER SERVICE REPRESENTATIVE-CERAMIC TILE MECHANIC 02/13/2024 9:15 AM READING AIDE - 02/13/2024 10:00 AM READING AIDE Surgery [facility] [address] [place] [address] Tahmina Llamas MD COLONOSCOPY SCREEN w/ Walker 02/13/2024 8:00 AM READING AIDE - 02/13/2024 11:09 AM READING AIDE Hospital Encounter [facility] [address] [place] [address] Tahmina Llamas MD Surgery General Discharge Disposition: Home or Self Care 02/10/2024 Patient Outreach [facility] [address] [place] [address] Dena Berger RN 02/05/2024 Orders Only [facility] [address] [place] [address] Taniya Navarro RN 12/29/2023 Orders Only [facility] [address] [place] [address] Taniya Navarro, ABRIL from Last 3 Months Allergies No known active allergies Medications * Be aware that medications may not be up to date on this document. Alwaysverify current medications with the patient. Medication Sig Dispensed Refills Start Date End Date Status rizatriptan (MAXALT) 10 MG tablet Take 1 (one) tablet by mouth daily as needed - may repeat one time for Migraine N Active simethicone (MYLICON) 80 MG chew tablet Take 1 tablet by mouth 3 times daily as needed for Gas Pain 90 tablet 3 03/26/2018 Active albuterol HFA (PROVENTIL;VENTOL IN;PROAIR) 108 (90 Base) MCG/ACT inhaler INHALE 2 PUFFS INTO LUNGS Q 4 H PRF DIFFICULTY BREATHING 03/07/2019 Active escitalopram (Lexapro) 5 MG tabletIndications :anxiety Take 1 (one) tablet by mouth once daily Reasons: anxiety 11/07/2021 Active lactulose (Chronulac) 10 GM/15ML solution Take 45 mL by mouth 3 times daily for 60 days 4050 mL 1 02/07/2023 Active ondansetron, disintegrating, (Zofran ODT) 4 MG tablet Take 1 (one) tablet by mouth as needed 09/14/2022 Active carvedilol (Coreg) 3.125 MG tablet Take 1 (one) tablet by mouth 2 times daily for 90 days 180 tablet 03/20/2023 Active rifAXIMin (Xifaxan) 550 MG tablet Take 1 (one) tablet by mouth 2 times daily 180 tablet 1 03/20/2023 Active levothyroxine (Synthroid) 125 MCG tabletIndications :Hypothyroidism Take 1 (one) tablet by mouth once daily for 30 days Reasons: Underactive Thyroid 30 tablet 03/20/2023 Active pantoprazole EC (Protonix) 40 MG tablet Take 1 (one) tablet by mouth once daily for 30 days 30 tablet 04/22/2023 Active furosemide (Lasix) 20 MG tablet Take 2 (two) tablets by mouth once daily 180 tablet 3 05/02/2023 05/01/2024 Active spironolactone (Aldactone) 100 MG tablet Take 1 (one) tablet by mouth once daily 90 tablet 3 05/02/2023 05/01/2024 Active acetaminophen (Tylenol) 500 MG tablet Take 1 (one) tablet by mouth every 6 hours as needed Maximum allowable Acetaminophen amount = 4 Grams (4000 mg) / 24 hours. 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 Finish the remaining prep at 4 am the morning of the procedure. 4000 mL 12/29/2023 Active polyethylene glycol (Gavilyte-C) 240 g solution Drink half the prep at 5 pm the evening prior to the procedure. Finish the remaining prep at 4 am the morning of the procedure. 4000 mL 02/05/2024 Active ferrous sulfate 325 (65 FE) MG tablet Take 1 (one) tablet by mouth once daily Active amLODIPine (Norvasc) 5 MG tablet Take 1 (one) tablet by mouth once daily 12/25/2023 Active Active Problems Problem Noted Date Diagnosed Date Dysphagia 05/21/2023 Anemia 05/21/2023 Syncope and collapse 04/17/2023 FOX (nonalcoholic steatohepatitis) 04/17/2023 Migraines 04/17/2023 Anxiety 04/17/2023 Esophageal varices 04/17/2023 Black tarry stools 04/02/2023 Nausea and vomiting, unspecified vomiting type 0 04/02/2023 Normocytic anemia 03/08/2023 History of cirrhosis 03/08/2023 Chest pain, unspecified type 03/08/2023 Lactic acidosis 02/16/2023 Melena 02/15/2023 Postural dizziness with presyncope 02/15/2023 Hypothyroidism 02/07/2023 Hepatic encephalopathy 02/04/2023 Gastric varices 02/02/2023 Hyperkalemia 02/02/2023 Elevated AST (SGOT) 02/02/2023 Hypoalbuminemia 02/02/2023 Hematochezia 09/19/2022 THANG (acute kidney injury) 09/19/2022 SIRS (systemic inflammatory response syndrome) 0 09/19/2022 Thrombocytopenia, secondary 09/19/2022 Coagulopathy 09/19/2022 Ruby-Vang tear 09/18/2022 Acute respiratory failure 09/18/2022 Hemorrhagic shock 09/18/2022 Acute blood loss anemia 09/18/2022 Hematemesis 09/17/2022 Decompensated hepatic cirrhosis 12/24/2018 Nonalcoholic steatohepatitis (FOX) 12/24/2018 Splenic laceration, initial encounter 03/15/2018 S/P TIPS (transjugular intrahepatic portosystemi c shunt) 01/21/2018 Overview (01/21/2018): 12/04/17 for refractory ascites Class 3 severe obesity with body mass index (BMI) of 40.0 to 44.9 in adult 01/21/2018 GERD (gastroesophageal reflux disease) 8 Hypertension 01/21/2018 ALAYNA (obstructive sleep apnea) 01/21/2018 Overview (01/21/2018): On CPAP Ascites 01/20/2018 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 10/04/16 liver biopsy: established cirrhosis without steatosis or ballooning. Some inflammation but no predominance of plasma cells or bile duct injury. Iron deficiency anemia 08/27/2016 Depression 12/08/2014 Fibromyalgia 12/08/2014 Hyperlipidemia 12/08/2014 Type 2 diabetes mellitus 12/08/2014 Pre-transplant evaluation for liver transplant Overview (03/18/2023): Images from the original note were not included. Liv Delong 52y : 63 Dx: FOX MELD: 8 (10/13/18) Referring MD: Carmen Txplt MD: Tristen MELD 3.0: 16 at 03/18/2023 2:57 AM MELD-Na: 12 at 03/18/2023 2:57 AM Calculated from: Serum Creatinine: 0.69 mg/dL (Using min of 1 mg/dL) at 03/18/2023 2:57 AM Serum Sodium: 140 mmol/L (Using max of 137 mmol/L) at 03/18/2023 2:57 AM Total Bilirubin: 1.0 mg/dL at 03/18/2023 2:57 AM Serum Albumin: 1.5 g/dL at 03/18/2023 2:57 AM INR(ratio): 1.7 at 03/18/2023 2:57 AM Age at listing (hypothetical): 57 years Sex: Female at 03/18/2023 2:57 AM Hx: Ms. 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 Notably, she did receive Haemophils B, Meningococcal, and??Pneumococcal vaccines. ?? Since discharge, the pt says she's had intermittent abdominal discomfort in her L flank, only upon deep breathing & controlled by her chronic methadone. Her primary concern today is that she feels extremely fatigued. Her appetite has also diminished but she is supplementing her diet with protein drinks (eg, Ensure). She denies issues with confusion. Currently on rifaximin, but stopped lactulose -- continues to have 3-5 normal volume, watery stools daily. She has not had overt GI blood loss. The pt is adherent to diuretic therapy and denies LE swelling and abdominal distention. 12/04/2017 09:55 03/15/2018 02:10 ABO Rh A POS A POS 01/21/2018 10:06 01/23/2018 09:13 05/07/2018 08:18 Ferritin 14 86 Folate 9.9 Iron 100 58 Transferrin 218 Transferrin Saturation % 37 Vitamin B12 1741 (H) 05/07/2018 08:18 Total Cholesterol (NMR) 140 Triglycerides 42 HDL 43 LDL Calculated 89 04/30/2018 12:43 05/07/2018 08:18 Hemoglobin A1c 4.3 (L) Estimated Average Glucose 77 PTH Intact 48.2 07/23/2016 11:42 05/07/2018 08:18 Alpha-Fetoprotein Tumor Marker 1.6 1.830 07/23/2016 11:42 F-Actin Antibody IgG 24.9 (H) Mitochondrial M2 Antibody 6.5 05/07/2018 08:18 QuantiFERON-TB Gold Plus Negative 04/30/2018 12:43 05/07/2018 08:18 Cytomegalovirus Antibody IgG <0.60 Charmaine-Whaley Virus Antibody IgG Viral Capsid Antigen >750.0 (H) Measles (Rubeola) Antibody IgG 189.0 Mumps Virus Antibody IgG Index >300.0 Rubella Antibody 20.20 Varicella zoster Virus Antibody IgG 1779 05/07/2018 08:18 HIV Antigen/Antibody 1 & 2 Non-reactive HBc Antibody Total Non-reactive Hepatitis B Surface Antibody Quantitative 1.3 Hepatitis B Virus Surface Antibody Non-reactive Hepatitis B Virus Surface Antigen Non-reactive Hepatitis C Antibody Non-reactive 04/30/2018 12:43 05/07/2018 08:18 Marijuana Metabolites Negative Interpretation Ethanol None Detected Cotinine None Detected Nicotine None Detected Amphetamines Screen Urine Negative Barbiturates Screen Urine Negative Benzodiazepine Screen Urine Positive (Abnormal) Cannabinoids Screen Urine Negative Cocaine Metabolite Urine Negative Methadone Screen Urine Positive (Abnormal) Opiates Urine Negative Phencyclidine Screen Urine Negative CXR: (05/07/18) Vascular coils are again seen in the left upper quadrant. Surgical clips are noted in the right upper quadrant. There is a intrahepatic portosystemic shunt in the right upper quadrant. There is no focal consolidation, pleural effusion, or pneumothorax. The cardiomediastinal silhouette is normal. The visible bony thorax is intact. No acute pulmonary process. Pano: (05/07/18) IMPRESSION Periapical lucency of tooth #28 is concerning for periapical abscess. Additional periapical lucencies likely represent artifact. US TIPS abd: (05/07/18) 1. Patent transjugular intrahepatic portosystemic shunt (TIPS). 2. Hepatic cirrhosis with sequela of portal hypertension including splenomegaly and ascites. 3. No discrete hepatic lesion or intrahepatic biliary dilation. CT abd: (05/07/18)?? 1. Multiple subcapsular hyperenhancing observations most of which do not demonstrate clear washout (LR-3). Questionable washout remains in a stable 6 mm observation in segment 7 near the dome (LR 4). 2. Postprocedural changes from splenic artery embolization proximal to the splenic hilum. 3. Hepatic cirrhosis with sequela of portal hypertension. Patent TIPS. Decreased ascites. PFT: (05/12/18) Echo: 05/07/2018 Cardiac Cath: 04/29/2018 ANGIOGRAPHY: ?? i. ?Left main: Angiographically normal artery. ii.?LAD: Long artery that tapers to termination by wrapping around the apex. There is are 2 diminutive diagonal branches. There is no angiographically significant stenosis. iii. ?? LCx: Dominant artery that gives off a large, branching obtuse marginal (OM) 1 and 2 as well as well as a PL branch. There is no angiographically significant stenosis. iv. ?? RCA: Small non dominant artery without angiographically significant stenosis. DOMINANCE: Left?? DIAGNOSTIC INTERPRETATIONS: normal coronary arteries RECOMMENDATIONS AFTER DIAGNOSTIC CATHETERIZATION: Aggressive modification of atherosclerotic risk factors. Liver Biopsy: 10/04/2016 FINAL DIAGNOSIS: LIVER, NEEDLE CORE BIOPSY: - ??CIRRHOSIS WITH FEATURES OF CHRONIC HEPATITIS - ??SEE COMMENT GROSS DESCRIPTION: Submitted fixed in formalin in one container labeled with the patient's name, Liv Delong and liver , are two cores of soft, yellow tissue measuring 1.0 cm in length and 0.9 cm in length, and both with diameter = 0.1 cm. ??The specimen is submitted in toto in cassette A1. TF/edk MICROSCOPIC DESCRIPTION: Histologic sections of the liver biopsy show cirrhosis, with broad fibrotic septa surrounding small regenerative nodules. The portal tracts/septa have chronic inflammation and ductular reaction, with focal mild interface activity. No sheets of plasma cells are seen, though. Few residual portal tracts are seen and have intact bile ducts without overt bile duct injury. There is mild lobular activity and rare acidophil bodies, but no steatosis, ballooning, or Ruby-Denk bodies as seen in active steatohepatitis. The trichome and reticulin stains confirm cirrhosis. The PAS-D stain is negative for [id number] globules. The iron stain is negative. The findings in this biopsy show advanced stage of liver disease, making it difficult to assign a definitive etiology. ??Concern for NAFLD is noted, though no ongoing features of steatohepatitis are seen; nevertheless, in patients with FOX that progress to cirrhosis, there can be a diminishment of steatosis. The portal/septal inflammation with focal interface activity suggests chronic hepatitis. 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 ??The history of systemic autoimmune disease is noted, however, the positive AFSHIN may instead reflect the patient's SLE. EGD: 05/08/2018 Findings: ?The examined esophagus was normal. ?A large amount of food (residue) was found in the entire examined ?stomach. ?The second portion of the duodenum was normal. ? Estimated Blood Loss: ? Estimated blood loss: none. Complications: ?No immediate complications. Impression: ? - Normal esophagus. ? - A large amount of food (residue) in the stomach. ? - Normal second portion of the duodenum. ? - No specimens collected. Recommendation: ? - The patient will be observed post-procedure, ? until all discharge criteria are met. ? - Discharge patient to home. Colonoscopy: h/o VENESSA 1990 needs rpt Mammo: needs Pap: needs WW exam or pap if she has a cervix SW: 04/20/18 Clinical Social Work Impression: It is the impression of this public health social worker that Liv Delong has several positive factors for Liver transplant candidacy including knowledge of illness, sufficient insurance coverage, stable financial situation for post transplant needs, no concerns regarding substance abuse. ?? Patient must identify adequate support system and appropriate discharge plan prior to listing. SW informed coordinator of patient's methadone use for fibromyalgia. ?? Plan: insole department worker to provide supportive services as needed. Patient appears to be a reasonable candidate for transplant from a psychosocial perspective, pending: ?? - Post transplant arrangement forms are needed prior to being listed with confirmation. ? Psychiatric Consult Recommended: No ?? Transplant Wellness Spa Manager: Brittany Michael LMSW RD: 04/20/18 Nutrition concerns: Pt gripped weak for age and gender at 22.8 kg. Pt's [place] Free Nutrition score was 2, high nutrition risk 2/2 unintentional severe wt loss (>10% in the past 3-6 months). Pt reports in March she lost ~20 lbs while she was in the hospital (10.5%). Pt reports her appetite comes and goes, sometimes skipping meals or consuming very small meals. Pt also reports it has been difficult maintain wt, and it seems to continue to fall off . Observed moderate muscle wasting at temples and clavicles. Will follow up with pt per Liver Frailty protocol. ?? In pt's nutrition favor: pt reports she consumes 2-3 Ensure/d, aware of protein and consumes HBV protein sources. Aware of and usually follows <2000 mg sodium diet. ?? Recommendations/Interventions: 1. Recommend 1.2-1.5 g/kg IBW for PRO for pt (reinforced education) or 71-83 g of PRO, HBV at meals and snacks. 2. Provided cirrhosis nutrition therapy handout with RD contact information to pt 3. Reinforced <2000 mg sodium diet 4. Provided pt with samples of Ensure Enlive (1.5 Alec) (350 kcals, 20 g Pro, 44 g carbohydrate) oral nutrition supplement. Pt purchases regular Ensure, encouraged Ensure Enlive or Ensure Plus as it has additional kcal/PRO per 8 oz serving. 5. Recommend PT consult for frailty assessment ?? Janeth Sher, RYNE/LD PT eval: 05/07/2018 Carmita Wing, PT Assessment: based on frailty score and 6MWT test with functional impairment of 35.78%, pt benefits from continued home exercise program as instructed to improve overall endurance and activity tolerance. Pt is independent with her home exercise program and expressed good understanding of education provided the following goals were met this one time visit: ? Goals - MET ? Independent with home exercise program ?? Pt to express good understanding of instructions provided ? Plan: Patient was seen for one time visit for evaluation and home exercise program. No further skilled PT needs at this time. Discharge PT.] STILL NEEDS: Strongyloides/toxo DEXA Resolved Problems Problem Noted Date Diagnosed Date Resolved Date Pneumonia 05/21/2023 06/18/2023 Anemia, unspecified type 02/15/2023 Immunizations Name Administration Dates Next Due HIB-PRP-T 4 DOSE 06/05/2023,03/19/2018 Meningococcal B Recombinant 2 Dose, IM 9 PNEUMOCOCCAL PPSV23 09/21/2020 Pneumococcal Pcv13 Conj 03/19/2018 Social History Tobacco Use Types Packs/Day Years Used Date Smoking Tobacco: Never Smokeless Tobacco: Never Tobacco Cessation:Counseling Given: Not Answered Alcohol Use Standard Drinks/Week Comments No 0 (1 standard drink = 0.6 oz pur e alcohol) OASIS D0700: Social Isolation Answer Da te Recorded Frequency of experiencing loneliness or isolatio n Never 10/18/2022 OASIS A1250: Transportation Answer Date Recorded Lack of Transportation (Medical) No 10/18/2022 Lack of Transportation (Non-Medical) No 10/18/2022 Patient Unable or Declines to Respond No 10/18/2022 OASIS B1300: Health Literacy Answer Carlton e Recorded Frequency of needing help to read materials from doctor or pharmacy Never 10/18/2022 AUDIT-C Answer Date Recorded Q1: How often do you have a drink containing alcohol? Never 05/11/2023 Q2: How many drinks containi ng alcohol do you have on a typical day when you are drinking? Patient does not drink Q3: How often do you have si x or more drinks on one occasion? Never 05/11/2023 Overall Financial Resource Strain (CARDIA) Answe r Date Recorded How hard is it for you to pa y for the very basics like food, housing, medical care, and heating? Not hard at all 05/11/2023 PHQ-2 Answer Date Recorded PHQ2 TOTAL SCORE 2 07/10/2020 [facility] - Occupational Stress Questionnaire Answer Date Recorded Do you feel stress - tense, restless, nervous, or anxious, or unable to sleep at night because your mind is troubled all the time - these days? Only a little 05/11/2023 Hunger Vital Sign Answer Date Recorded Within the past 12 months, y ou worried that your food would run out before you got the money to buy more. Never true 05/11/19 24 Within the past 12 months, t he food you bought just didn't last and you didn't have money to get more. Never true 05/11/2023 PRAPARE - Transportation Answer Date Re corded In the past 12 months, has l ack of transportation kept you from medical appointments or from getting medications? No 05/01 In the past 12 months, has l ack of transportation kept you from meetings, work, or from getting things needed for daily living? No 05/11/2023 Housing Stability Vital Sign Answer Carlton e Recorded In the last 12 months, was t here a time when you were not able to pay the mortgage or rent on time? No 05/11/2023 In the last 12 months, how many places have you lived? 1 05/11/2023 In the last 12 months, was t here a time when you did not have a steady place to sleep or slept in a nursing home (including now)? No 05/11/2023 Sex and Gender Information Value Date Recorded Sex Assigned at Not on file Gender Identity Female 09/25/2017 10:09 AM CDT Sexual Orientation Not on file Last Filed Vital Signs Vital Sign Reading Time Taken Comments Blood Pressure 145/81 02/13/2024 10:30 AM READING AIDE Pulse 79 02/13/2024 10:45 AM READING AIDE Temperature 36.5 ??C (97.7 ??F) 02/13/2024 10:[address] Respiratory Rate 9 02/13/2024 10:30 AM READING AIDE Oxygen Saturation 98% 02/13/2024 10:45 AM READING AIDE Inhaled Oxygen Concentration 28% 05/23/2023 1 2:31 PM CDT Weight 108.9 kg (240 lb) 02/13/2024 8:21 AM READING AIDE Height 167.6 cm (5' 6 ) 02/13/2024 8:21 AM READING AIDE Body Mass Index 38.74 02/13/2024 8:21 AM READING AIDE Functional Status Functional Status Response Date of Assess ment Is person deaf or have serious hearing difficult y? No 02/13/2024 Is person blind or have serious difficulty seein g? No 02/13/2024 Does person have serious dif ficulty walking/climbing stairs? No 02/13/2024 Does person have difficulty dressing/bathing? No 02/13/2024 Does person have difficulty doing errands alone? No 02/13/2024 Cognitive Status Response Date of Assessm ent Does person have difficulty concentrating/remembering/making decisions? No 02/13/2024 Plan of Treatment Upcoming Encounters Date Type Department Care Team (Latest Contact Info) Description 04/26/2024 7:00 AM READING AIDE Appointment [facility] [address] [place] [address] Dewey Villaseñor MD [address] [facility] [address] [place] [id number] 04/26/2024 8:00 AM READING AIDE Office Visit [facility] - [address] [facility] [place] [address] Dagoberto Walker MD [address] [facility] [address] [place] [address] 05/14/2024 9:15 AM CDT Hospital Encounter [facility] [address] [place] [phone] Douglas Gomez MD [address] [place] [address] Surgery General 05/14/2024 9:15 AM CDT - 05/14/2024 10:00 AM CDT Surgery [facility] [address] [place] [phone] Douglas Gomez MD [address] [place] [phone] COLONOSCOPY SCREEN w/ extended prep Scheduled Procedures Name Priority Associated Diagnoses Date/Ti me COLONOSCOPY SCREEN Colon cancer screening Iron deficiency anemia, unspecified iron deficiency anemia type 05/14/2024 9:15 AM CDT Goals Goal Patient Goal Type Associated Problems Recent Progress Patient-Stated? Author Medication Management General On track( 11:16 AM CDT) No Dena Echavarria, RN Note: Expected end date: Ongoing Interventions: Take all medications as prescribed Let your doctor know right away about any changes in your medications Make sure to request a refill of your medication at least one week prior to your last dose Safety General On track( 024 10:49 AM READING AIDE) No Arleth Mcghee, ABRIL Note: Expected end date: ongoing Interventions: Your nurse will assess your risk for falls/injury each visit Make sure appropriate safety devices are available and within reach Be aware of medications that could predispose you to falling Wear non-skid/rubber sole footwear Wear glasses/hearing aid Keep personal items within easy reach Use some light at night in your room Medical Devices Implanted Type Area Security Orderly Device Identifier Shelf Expiration Date Model / Serial / Lot Coil Concerto Latticefx 8cm 4mm Dtc Pos Implanted:Qty: 1 on 03/19/2023 by Ferny Jesus MD at [facility] Coil [employer]domen [employer] 12/10/2025 [id number] LIX / / [id number] Coil Concerto Latticefx 10cm 4mm Dtch Implanted:Qty: 1 on 03/19/2023 by Ferny Jesus MD [facility] [facility] Vein [employer] 10/31/2025 NV-4-10-H ELIX / / [id number] Coil Azur Hdrcl 5cm 4mm .038in Dtch Loop Implanted:Qty: 1 on 04/17/2023 by Ferny Jesus MD at [facility] Coil N/A: Esophagus [employer] 09/30/2026 [id number] / / [id number] Coil Azur Hdrcl 5cm 4mm .038in Dtch Loop Implanted:Qty: 1 on 04/17/2023 by eFrny Jesus MD at [facility] Coil N/A: Esophagus [employer] 12/31/2026 [id number] / / [id number] Coil Azur Cx Hdrcl 8cm 3mm Dtch Loop Sld Implanted:Qty: 1 on 04/17/2023 by Ferny Jesus MD at [facility] Coil N/A: Esophagus [employer] 08/31/2027 [id number] / / [id number] Coil Azur Cx Hdrcl 8cm 3mm Dtch Loop Sld Implanted:Qty: 1 on 04/17/2023 by Ferny Jesus MD at [facility] Coil N/A: Esophagus [employer] 08/31/2027 [id number] / / [id number] Coil Azur Cx Hdrcl 8cm 3mm Dtch Loop Sld Implanted:Qty: 1 on 04/17/2023 at [facility] Coil N/A: Esophagus [employer] 08/31/2027 [id number] / / [id number] Coil Concerto Latticefx 10cm 4mm Dtch Implanted:Qty: 1 on 04/17/2023 by Ferny Jesus MD at [facility] Coil N/A: Esophagus [employer] 10/31/2025 NV-4-10-H ELIX / / [id number] Coil Concerto Latticefx 10cm 4mm Dtch Implanted:Qty: 1 on 04/17/2023 by Ferny Jesus MD at [facility] Coil N/A: Esophagus [employer] 12/23/2025 NV-4-10-H ELIX / / [id number] Stent Eprsth 7cm 8-10mm [place] Vtr 2cm - [id number] Implanted:Qty: 1 on 12/04/2017 at [facility] N/A: Liver [employer] 02/19/2020 [id number] / [id number] / Description: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 Embol Coil .018in 10-4mm Tapr 14.2cm Implanted:Qty: 1 on 03/19/2018 at [facility] Arterial [employer] 12/19/2021 [id number] / / [id number] Description: Embol Coil .018in 10-4mm Tapr 14.2cm Implanted:Qty: 2 on 03/19/2018 at [facility] Arterial [employer] 12/19/2021 [id number] / / [id number] Description: Coil Penumbra Coil 400 Mireille 60cm .02in Implanted:Qty: 1 on 03/19/2018 at [facility] Arterial [employer] 05/22/2024 [id number] / / Description: Coil The Penumbra Coil 400 60cm 28mm Implanted:Qty: 1 on 03/19/2018 at [facility] Arterial [employer] 08/30/2018 [id number] / / [id number] Description: Coil [employer] Penumbra Coil 400 57cm 24mm Implanted:Qty: 1 on 03/19/2018 at [facility] Arterial [employer] 01/23/2022 [id number] / / [id number] Description: Coil Pod 60cm Pk Embl J-Sft Strl Lf Implanted:Qty: 1 on 03/19/2018 at [facility] Arterial [employer] 11/02/2025 [id number] / / [id number] Description: Sys Plug Vasc Detchabl Micro 7.0 X 12mm Implanted:Qty: 1 on 03/19/2018 at [facility] Arterial [employer] 06/28/2018 [id number]-[id number] / / [id number] Coil Pod 60cm Pk Embl J-Sft Strl Lf Implanted:Qty: 1 on 03/19/2018 at [facility] Arterial [employer] 11/02/2025 [id number] / / [id number] Description: Coil Pod 60cm Pk Embl J-Sft Strl Lf Implanted:Qty: 1 on 03/19/2018 at [facility] Arterial [employer] 11/02/2025 [id number] / / [id number] Description: Coil The Penumbra Coil 400 60cm 22mm Implanted:Qty: 1 on 03/19/2018 at [facility] Arterial [employer] 11/30/2018 [id number] / / [id number] Description: Coil Concerto 4cm 12mm Dtch Cmplx Frm Implanted:Qty: 1 on 04/17/2023 at [facility] N/A: Esophagus [employer] 05/24/2025 PV-4-12-3 D / / [id number] Sphr Embl Ylw Embsph 100-300um Trisacryl Implanted:Qty: 4 on 05/12/2023 by Ferny Jesus MD at [facility] Arterial [employer] 12/23/2024 [id number] / / [id number] Description:implanted in the splenic artery Explanted Type Area Security Orderly Device Identifier Shelf Expiration Date Model / Serial / Lot Coil Concerto 4cm 12mm Dtch Cmplx Frm Explanted:Qty: 1 on 03/19/2023 at [facility] Coil Abdomen [employer] 05/13/2025 PV-4-12-3D / / [id number] Procedures Procedure Name Priority Date/Time Associated Diagnosis Comments ENDOSCOPY, COLON, SCREENING Routine 02/13/2024 9:[address] COLOREC CANC SCRN,SCOPY NOT HI RISK 02/13/2024 9:29 AM READING AIDE Screen for colon cancer Special Needs screening colonoscopy Received: Yesterday Ulices Kerr MD [facility] Schedulers - Endoscopy Pool [facility] Please schedule for screening colonoscopy. 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 Date of : 1965 Classification: Outpatient ?Gender: Female Ethnicity: Not or ? Race: White _ Providers: ?Tahmina Llamas MD, Talya Morrison MD (Fellow) Referring MD: ? Amor Arboleda, DO, DEWEY VILLASEÑOR MD PhD Procedure: ?Colonoscopy Indications: ?Screening for colorectal malignant neoplasm Medications: ?Monitored Anesthesia Care Description of Procedure: Pre-Anesthesia Assessment: ?- Prior to the procedure, a History and Physical ?was performed, and patient medications and ?allergies were reviewed. The patient's tolerance of ?previous anesthesia was also reviewed. The risks ?and benefits of the procedure and the sedation ?options and risks were discussed with the patient. ?All questions were answered, and informed consent ?was obtained. Prior Anticoagulants: The patient has ?taken no anticoagulant or antiplatelet agents. ASA ?Grade Assessment: III - A patient with severe ?systemic disease. After reviewing the risks and ?benefits, the patient was deemed in satisfactory ?condition to undergo the procedure. ?After I obtained informed consent, the scope was ?passed under direct vision. Throughout the ?procedure, the patient's blood pressure, pulse, and ?oxygen saturations were monitored continuously. The ?Colonoscope was introduced through the anus and ?advanced to the cecum, identified by the ileocecal ?valve. The colonoscopy was performed without ?difficulty. The patient tolerated the procedure ?well. The quality of the bowel preparation was ?poor. The ileocecal valve and the rectum were ?photographed. ? Findings: ? Semi-solid stool was found in the entire colon, precluding ? visualization. Lavage of the area was performed using a moderate amount, ? resulting in incomplete clearance with continued poor visualization. No ? evidence of large obstructive lesions. however, polyps could have been ? missed due to poor preparation. ? Estimated Blood Loss: ? Estimated blood loss: none. Complications: ?No immediate complications. Impression: ? - Preparation of the colon was poor. ?- Stool in the entire examined colon. ?- No specimens collected. Recommendation: ? - Discharge patient to home. ?- Resume previous diet. ?- Continue present medications. ?- Repeat colonoscopy at next available appointment ?(within 3 months) for screening purposes. ?- Patient has a contact number available for ?emergencies. The signs and symptoms of potential ?delayed complications were discussed with the ?patient. Return to normal activities tomorrow. ?Written discharge instructions were provided to the ?patient. ? Attending Participation: ??I was present and participated during the entire ?procedure, including non-gambino portions. ? Procedure Code(s): ? --- Professional --- ? G0121, Colorectal cancer screening; colonoscopy on individual not ? meeting criteria for high risk Diagnosis Code(s): ?--- Professional --- ?Z12.11, Encounter for screening for malignant ?neoplasm of colon CPT copyright 2021 [employer]. All rights reserved. The codes documented in this report are preliminary and upon composite science teacher review may be revised to meet current compliance requirements. Tahmina Llamas MD 02/13/2024 10:08:28 AM This report has been signed electronically. Note Initiated On: 02/13/2024 9:29 AM Number of Addenda: 0 ? [facility] ? [address] 02/13/2024 9:29 AM READING AIDE Tahmina Llamas MD GI PROCEDURE ORDERAB LES [facility] * (ABNORMAL) COMPREHENSIVE METABOLIC PANEL (06/19/2023 1:21 PM CDT) BUN 9 7 - 26 mg/dL 06/19/2023 2:44 PM [facility] Creatinine 0.51(L) 0.56 - 0.96 mg/dL 06/19/2023 2:44 PM [facility] Sodium 138 136 - 145 mmol/L 06/19/2023 2:44 PM [facility] Potassium 4.1 3.5 - 4.5 mmol/L 06/19/2023 2:44 PM [facility] Chloride 113(H) 98 - 107 mmol/L 06/19/2023 2:44 PM [facility] CO2 19(L) 22 - 29 mmol/L 06/19/2023 2:44 PM [facility] Glucose 74 70 - 115 mg/dL 06/19/2023 2:44 PM [facility] Calcium 8.5 8.4 - 10.2 mg/dL 06/19/2023 2:44 PM [facility] Protein Total 6.7 6.0 - 8.3 g/dL 06/19/2023 2:44 PM [facility] Albumin 2.3(L) 3.4 - 5.0 g/dL 06/19/2023 2:44 PM [facility] Bilirubin Total 1.2 0.2 - 1.2 mg/dL 06/19/2023 2:44 PM [facility] Alkaline Phosphatase 130 40 - 150 U/L 06/19/2023 2:44 PM [facility] ALT 22 5 - 55 U/L 06/19/2023 2:44 PM [facility] AST 65(H) 5 - 34 U/L 06/19/2023 2:44 PM [facility] Anion Gap 6 6 - 16 06/19/2023 2:44 PM [facility] BUN/Creatinine Ratio 18 7 - 23 06/19/2023 2:44 PM [facility] Osmolality Calculated 283 275 - 295 mOsm/kg 06/19/2023 2:44 PM [facility] Albumin/Globulin Ratio 0.5(L) 1.1 - 2.3 06/19/2023 2:44 PM [facility] eGFR by CKD-EPI >90 >=90 mL/min/1.7 3 m2 06/19/2023 2:44 PM [facility] Blood BLOOD SPECIMEN / Unknown Lab Venipuncture / Unknown 06/19/2023 1:21 PM CDT 06/19/2023 2:12 PM CDT Dewey Villaseñor MD LAB - CHEMISTRY CORNELIA GAVIN [facility] [address] [place] [address], [facility] [phone] * HIV-1 HIV-2 ANTIBODY + HIV P24 AG PANEL (06/04/2023 4:59 AM CDT) Pathologist [facility] HIV Antigen/Antibod y 1 & 2 Non-reacti ve Non-react bryn 06/04/2023 6:11 AM CDT [facility] Comment:No Laboratory eviden ce of HIV infection. Blood BLOOD SPECIMEN / Unknown Venipuncture / Unknown 06/04/2023 4:59 AM CDT 06/04/2023 5:03 AM CDT Douglas Gomez MD LAB - CHEMISTRY CORNELIA GAVIN [facility] [address] [place] [address], [place] [phone] * HEMOGLOBIN A1C (04/03/2023 2:06 AM READING AIDE) [facility] Hemoglobin A1c 4.7 <=5.6 % 04/03/2023 10:55 AM [facility] Estimated Average Glucose 88 mg/dL 04/03/2023 10:55 AM [facility] Comment: HbA1c Interpretation: Normal : < 5.7% Pre-diabetes: 5.7-6.4% Diabetes: Equal to or greater than 6.5% Test results diagnostic of diabetes should be repeated for confirmation. Treatment target values recommended by ADA and other clinical organizations should be used to evaluate metabolic control in patients. Reference: [place] Diabetes Association, Standards of Care in Diabetes -2020 In patients 70 years and older consider HbA1c target range of 7.0-7.5% (Reference: Grey Resendiz et al. JAMDA. 2012) The Sebia assay for the measurement of HbA1c is a National Glycohemoglobin Standardization Program (NGSP) certified method. Blood BLOOD SPECIMEN / Unknown Venipuncture / Unknown 04/03/2023 2:06 AM READING AIDE 04/03/2023 2:19 AM READING AIDE Tay Alonso MD LAB - CHEMISTR Y ORDERABLES [facility] [address] [place] [address], [place] [phone] * HEPATITIS C ANTIBODY (05/07/2018 8:18 AM READING AIDE) Hepatitis C Antibody Non-react bryn Non-reac tive 05/07/2018 9:57 AM READING AIDE [facility] Comment: Hepatitis C Antibody screen indicates no serologic evidence of past or current infection with Hepatitis C Virus. Patients with unexplained liver disease who are immunocompromised or suspected of having acute Hepatitis C infection may benefit from Nucleic Acid Test (ANN) for Hepatitis C Viral RNA to confirm Hepatitis C status. Blood BLOOD SPECIMEN / Unknown Lab Venipuncture / Unknown 05/07/2018 8:18 AM READING AIDE 05/07/2018 8:32 AM READING AIDE Julio Molina MD LAB - CHEMISTRY CORNELIA GAVIN [facility] [address] [phone] from Last 3 Months or Most Recently Relevant to Health Maintenance Advance Directives Documents on File Type Date Recorded Patient Box Sealing Inspector Expl anation Adv Directive/Living Will/POA 10/03/2022 4:13 PM Adv Directive/Living Will/POA 2022 2:23 PM * Full Code (Latest Code Status on File) Date Activated Date Inactivated Comments 05/11/2023 5:48 PM 06/05/2023 7:34 PM * Full Code Date Activated Date Inactivated Comments 05/11/2023 5:48 PM 05/11/2023 5:48 PM * Full Code Date Activated Date Inactivated Comments 04/17/2023 2:27 AM 04/22/2023 8:22 PM * Full Code Date Activated Date Inactivated Comments 04/02/2023 11:09 PM 04/04/2023 4:25 PM * Full Code Date Activated Date Inactivated Comments 03/08/2023 1:37 AM 03/21/2023 4:19 PM Care Teams Brick Carrier Relationship Specialty Start Date End Date Amor Arboleda DO [address] [place] [id number] PCP - General Family Medicine Geriatric Medicine 12/03/22 Nelly Ozuna APRN-FILM REPLACEMENT ORDERER [id number] [place] [address] Nurse Practitioner Nurse Practitioner 06/19/20
--- OUTSIDE RECORDS SUMMARY | 2024-03-27 07:30 | XMS_ITS | Patient Health Summary ---
Author Organization [facility] Address [address] [place] [address] Care Team Providers Care Supervisor Lump Room Name Role Phone Nelly Ozuna APRN-[employer]URSE [employer] Unavailable [phone] Amor Arboleda DO Primary Care Provider + Note from [facility],non-owned Affiliates and Associated Physician Practices is amultiple site organization consisting of ambulatory clinics and hospital sitesin [place], [place], [place] and [place]. This disclosure is being madepursuant to the Care Everywhere program and may not contain all information available regarding this patient. Last updated 17.[facility] Allergies No known active allergies* Fentanyl(Nausea and/or Vomiting) -Low Criticality, Inactive * Pioglitazone(Unknown) -Low Criticality,Inactive Medications * Be aware that medications may not be up to date on this document. Alwaysverify current medications with the patient. * rizatriptan (MAXALT) 10 MG tablet Take 1 (one) tablet by mouth daily as needed - may repeat one time for Migraine N * simethicone (MYLICON) 80 MG chew tablet(Started 03/26/2018) Take 1 tablet by mouth 3 times daily as needed for Gas Pain 3 refills remaining * albuterol HFA (PROVENTIL;VENTOLIN;PROAIR) 108 (90 Base) MCG/ACT inhaler (Started 03/07/2019) INHALE 2 PUFFS INTO LUNGS Q 4 H PRF DIFFICULTY BREATHING * escitalopram (Lexapro) 5 MG tablet(Started 11/07/2021) Take 1 (one) tablet by mouth once daily Reasons: anxiety * lactulose (Chronulac) 10 GM/15ML solution(Started 02/07/2023) Take 45 mL by mouth 3 times daily for 60 days 1 refill by 02/07/2024 * ondansetron, disintegrating, (Zofran ODT) 4 MG tablet(Started 09/14/2022) Take 1 (one) tablet by mouth as needed * carvedilol (Coreg) 3.125 MG tablet(Started 03/20/2023) Take 1 (one) tablet by mouth 2 times daily for 90 days * rifAXIMin (Xifaxan) 550 MG tablet(Started 03/20/2023) Take 1 (one) tablet by mouth 2 times daily 1 refill by 03/19/2024 * levothyroxine (Synthroid) 125 MCG tablet(Started 03/20/2023) Take 1 (one) tablet by mouth once daily for 30 days Reasons: Underactive Thyroid * pantoprazole EC (Protonix) 40 MG tablet(Started 04/22/2023) Take 1 (one) tablet by mouth once daily for 30 days * furosemide (Lasix) 20 MG tablet(Started 05/02/2023) Take 2 (two) tablets by mouth once daily 3 refills by 05/01/2024 * spironolactone (Aldactone) 100 MG tablet(Started 05/02/2023) Take 1 (one) tablet by mouth once daily 3 refills by 05/01/2024 * acetaminophen (Tylenol) 500 MG tablet(Started 06/05/2023) Take 1 (one) tablet by mouth every 6 hours as needed Maximum allowable Acetaminophen amount = 4 Grams (4000 mg) / 24 hours. * methocarbamol (Robaxin) 500 MG tablet(Started 06/18/2023) Take 2 (two) tablets by mouth 3 times daily * Nutritional Supplements (Ensure High Protein) LIQD(Started 06/19/2023) Take 3 bottles by mouth 1 Before Breakfast, 2 Before Dinner Three ensure shakes daily 1 refill by 06/18/2024 * Vitamin D, Ergocalciferol, 23244 units CAPS(Started 06/26/2023) Take 1 (one) capsule by mouth every 7 days Reasons: Vitamin D Deficiency 1 refill by 06/25/2024 * polyethylene glycol (Gavilyte-C) 240 g solution(Started 12/29/2023) Drink half the prep at 5 pm the evening prior to the procedure. Finish the remaining prep at 4 am the morning of the procedure. * polyethylene glycol (Gavilyte-C) 240 g solution(Started 02/05/2024) Drink half the prep at 5 pm the evening prior to the procedure. Finish the remaining prep at 4 am the morning of the procedure. * ferrous sulfate 325 (65 FE) MG tablet Take 1 (one) tablet by mouth once daily * amLODIPine (Norvasc) 5 MG tablet(Started 12/25/2023) Take 1 (one) tablet by mouth once daily Active Problems Problem Noted Date Diagnosed Date Dysphagia 05/21/2023 Anemia 05/21/2023 Syncope and collapse 04/17/2023 SANCHEZ (nonalcoholic steatohepatitis) 04/17/2023 Migraines 04/17/2023 Anxiety 04/17/2023 [...] 09/17/2022 Decompensated hepatic cirrhosis 12/24/2018 Nonalcoholic steatohepatitis (SANCHEZ) 12/24/2018 Splenic laceration, initial encounter 03/15/2018 S/P TIPS (transjugular intrahepatic portosystemi c shunt) 01/21/2018 Class 3 severe obesity with body mass index (BMI) of 40.0 to 44.9 in adult 01/21/2018 GERD (gastroesophageal reflux disease) 8 Hypertension 01/21/2018 ALAYNA (obstructive sleep apnea) 01/21/2018 Ascites 01/20/2018 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 01/19/2018 Iron deficiency anemia 08/27/2016 Depression 12/08/2014 Fibromyalgia 12/08/2014 Hyperlipidemia 12/08/2014 Type 2 diabetes mellitus 12/08/2014 Pre-transplant evaluation for liver transplant Resolved Problems Problem Noted Date Diagnosed Date Resolved Date Pneumonia 05/21/2023 06/18/2023 Anemia, unspecified type 02/15/2023 Immunizations * HIB-PRP-T 4 DOSE(Given 06/05/2023, 03/19/2018) * Meningococcal B Recombinant 2 Dose, IM(Given 03/19/2018) * PNEUMOCOCCAL PPSV23(Given 09/21/2020) * Pneumococcal Pcv13 Conj(Given 03/19/2018) Social History Tobacco Use Types Packs/Day Years [...] Date Recorded PHQ2 TOTAL SCORE 2 07/10/2020 [facility] - Occupational Stress [...] place to sleep or slept in a senior care (including now)? No 05/11/2023 Sex and Gender Information Value Date Recorded Sex Assigned at Not on file Gender Identity Female 09/25/2017 10:09 AM CDT Sexual Orientation Not on file Last Filed Vital Signs Vital Sign Reading Time Taken Comments Blood Pressure 145/81 02/13/2024 10:30 AM RADIOSONDE OPERATOR Pulse 79 02/13/2024 10:45 AM RADIOSONDE OPERATOR Temperature 36.5 ??C (97.7 ??F) 02/13/2024 10:[address] Respiratory Rate 9 02/13/2024 10:30 AM RADIOSONDE OPERATOR Oxygen Saturation 98% 02/13/2024 10:45 AM RADIOSONDE OPERATOR Inhaled Oxygen Concentration 28% 05/23/2023 1 2:31 PM CDT Weight 108.9 kg (240 lb) 02/13/2024 8:21 AM RADIOSONDE OPERATOR Height 167.6 cm (5' 6 ) 02/13/2024 8:21 AM RADIOSONDE OPERATOR Body Mass Index 38.74 02/13/2024 8:21 AM RADIOSONDE OPERATOR Medical Devices Implanted Type Area Occupational Hygienist Device Identifier Shelf Expiration Date Model / Serial / Lot Coil Concerto Latticefx 8cm 4mm Dtch Pos Implanted:Qty: 1 on 03/19/2023 by Ferny Jesus MD at [facility] Coil Abdomen [employer] 12/10/2025 NV-4-8-HE LIX / / [id number] Coil Concerto Latticefx 10cm 4mm Dtch Implanted:Qty: 1 on 03/19/2023 by Ferny Jesus MD at [facility] Coil Vein [employer] 10/31/2025 NV-4-10-H ELIX / / [id number] Coil Azur Hdrcl 5cm 4mm .038in Dtch Loop Implanted:Qty: 1 on 04/17/2023 by Ferny Jesus MD at [facility] Coil N/A: Esophagus [employer] 09/30/2026 [id number] / / [id number] Coil Azur Hdrcl 5cm 4mm .038in Dtch Loop Implanted:Qty: 1 on 04/17/2023 by Ferny Jesus MD at [facility] Coil N/A: Esophagus [employer] 12/31/2026 [id number] / / [id number] Coil Azur Cx Hdrcl 8cm 3mm Dtch Loop Sld Implanted:Qty: 1 on 04/17/2023 by Ferny Jesus MD at [facility] Coil N/A: Esophagus [employer] 08/31/2027 [id number] / / [id number] Coil Azur Cx Hdrcl 8cm 3mm Dtch Loop Sld Implanted:Qty: 1 on 04/17/2023 by Ferny Jesus MD at [facility] Coil N/A: Esophagus [employer] 08/31/2027 [id number] / / [id number] Coil Azur Cx Hdrcl 8cm 3mm Dtch Loop Sld Implanted:Qty: 1 on 04/17/2023 at [facility] Coil N/A: Esophagus [employer] 08/31/2027 [id number] / / [id number] Coil Concerto Latticefx 10cm 4mm Dtch Implanted:Qty: 1 on 04/17/2023 by Ferny Jesus MD at [facility] Coil N/A: Esophagus [employer] 10/31/2025 NV-4-10-H ELIX / / [id number] Coil Concerto Latticefx 10cm 4mm Dtch Implanted:Qty: 1 on 04/17/2023 by Ferny Jesus MD at [facility] Coil N/A: Esophagus [employer] 12/23/2025 NV-4-10-H ELIX / / [id number] Stent Eprsth 7cm 8-10mm [place] Vtr 2cm - [id number] Implanted:Qty: 1 on 12/04/2017 at [facility] N/A: Liver [employer] 02/19/2020 [id number] / [id number] / Description: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 Embol Coil .018in 10-4mm Tapr 14.2cm Implanted:Qty: 1 on 03/19/2018 at [facility] Arterial [employer] 12/19/2021 [id number] / / [id number] Description: Embol Coil .018in 10-4mm Tapr 14.2cm Implanted:Qty: 2 on 03/19/2018 at [facility] Arterial [employer] 12/19/2021 [id number] / / [id number] Description: Coil Penumbra Coil 400 Mireille 60cm .02in Implanted:Qty: 1 on 03/19/2018 at [facility] Arterial [employer] 05/22/2024 [id number] / / Description: Coil The Penumbra Coil 400 60cm 28mm Implanted:Qty: 1 on 03/19/2018 at [facility] Arterial [employer] 08/30/2018 [id number] / / [id number] Description: Coil [employer] Penumbra Coil 400 57cm 24mm Implanted:Qty: 1 on 03/19/2018 at [facility] Arterial [employer] 01/23/2022 [id number] / / [id number] Description: Coil Pod 60cm Pk Embl J-Sft Strl Lf Implanted:Qty: 1 on 03/19/2018 at [facility] Arterial [employer] Inc 11/02/2025 [id number] / / [id number] Description: Sys Plug Vasc Detchabl Micro 7.0 X 12mm Implanted:Qty: 1 on 03/19/2018 at [facility] Arterial Med[employer]onic Inc 06/28/2018 [id number] / / [id number] Coil Pod 60cm Pk Embl J-Sft Strl Lf Implanted:Qty: 1 on 03/19/2018 at [facility] Arterial [employer] 11/02/2025 [id number] / / [id number] Description: Coil Pod 60cm Pk Embl J-Sft Strl Lf Implanted:Qty: 1 on 03/19/2018 at [facility] Arterial [employer] 11/02/2025 [id number] / / [id number] Description: Coil The Penumbra Coil 400 60cm 22mm Implanted:Qty: 1 on 03/19/2018 at [facility] Arterial [employer] 11/30/2018 [id number] / / [id number] Description: Coil Concerto 4cm 12mm Dtch Cmplx Frm Implanted:Qty: 1 on 04/17/2023 at [facility] N/A: Esophagus [employer] 05/24/2025 PV-4-12-3 D / / [id number] Sphr Embl Ylw Embsph 100-300um Trisacryl Implanted:Qty: 4 on 05/12/2023 by Ferny Jesus MD at [facility] Arterial [employer] 12/23/2024 [id number] / / [id number] Description:implanted in the splenic artery Explanted Type Area Occupational Hygienist Device Identifier Shelf Expiration Date Model / Serial / Lot Coil Concerto 4cm 12mm Dtch Cmplx Frm Explanted:Qty: 1 on 03/19/2023 at [facility] Coil Abdomen Med[employer] Neurological 05/13/2025 PV-4-12-3D / / [id number] Procedures * ENDOSCOPY, COLON, SCREENING(Performed 02/13/2024) * OK COLOREC CANC SCRN,SCOPY NOT HI RISK(Performed 02/13/2024) Performed for Screen for colon cancer * US TIPS W ABDOMEN LIMITED(Performed 08/22/2023) Performed for 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) * VITAMIN D 25-HYDROXY(Performed 06/19/2023) Performed for 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) * ALPHA FETOPROTEIN BLOOD TUMOR MARKER(Performed 06/19/2023) Performed for 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) * PT-INR SLH(Performed 06/19/2023) Performed for 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) * COMPREHENSIVE METABOLIC PANEL(Performed 06/19/2023) Performed for 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) * CBC W AUTO DIFFERENTIAL(Performed 06/19/2023) Performed for 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) * CBC W AUTO DIFFERENTIAL(Performed 06/05/2023) * PT-INR SLH(Performed 06/05/2023) * MAGNESIUM BLOOD(Performed 06/05/2023) * PHOSPHORUS BLOOD(Performed 06/05/2023) * COMPREHENSIVE METABOLIC PANEL(Performed 06/05/2023) * GLUCOSE - POINT OF CARE(Performed 06/04/2023) * GLUCOSE - POINT OF CARE(Performed 06/04/2023) * FERRITIN(Performed 06/04/2023) * HIV-1 HIV-2 ANTIBODY + HIV P24 AG PANEL(Performed 06/04/2023) * C-REACTIVE PROTEIN(Performed 06/04/2023) * ERYTHROCYTE SEDIMENTATION RATE(Performed 06/04/2023) * RHEUMATOID FACTOR BLOOD QUANTITATIVE(Performed 06/04/2023) * AFSHIN BLOOD SCREEN W/REFLEX TITER(Performed 06/04/2023) * CBC W AUTO DIFFERENTIAL(Performed 06/04/2023) * PT-INR SLH(Performed 06/04/2023) * MAGNESIUM BLOOD(Performed 06/04/2023) * PHOSPHORUS BLOOD(Performed 06/04/2023) * COMPREHENSIVE METABOLIC PANEL(Performed 06/04/2023) * CHARMAINE-WHALEY VIRUS QUANT BLOOD STL(Performed 06/04/2023) * GLUCOSE - POINT OF CARE(Performed 06/03/2023) * XR PANOREX(Performed 06/03/2023) Performed for Fever, unspecified fever cause * GLUCOSE - POINT OF CARE(Performed 06/03/2023) * CULTURE BLOOD(Performed 06/03/2023) * CT CHEST ABDOMEN PELVIS W CONT(Performed 06/03/2023) Performed for Fever, unspecified fever cause * GLUCOSE - POINT OF CARE(Performed 06/03/2023) * GLUCOSE - POINT OF CARE(Performed 06/03/2023) * CBC W AUTO DIFFERENTIAL(Performed 06/03/2023) * PT-INR SLH(Performed 06/03/2023) * MAGNESIUM BLOOD(Performed 06/03/2023) * PHOSPHORUS BLOOD(Performed 06/03/2023) * COMPREHENSIVE METABOLIC PANEL(Performed 06/03/2023) * GLUCOSE - POINT OF CARE(Performed 06/02/2023) * GLUCOSE - POINT OF CARE(Performed 06/02/2023) * DIFFERENTIAL MANUAL(Performed 06/02/2023) * CBC W AUTO DIFFERENTIAL(Performed 06/02/2023) * GLUCOSE - POINT OF CARE(Performed 06/02/2023) * VAS BILATERAL VENOUS DUPLEX UE(Performed 06/02/2023) Performed for Fever, unspecified fever cause * GLUCOSE - POINT OF CARE(Performed 06/02/2023) * PT-INR SLH(Performed 06/02/2023) * MAGNESIUM BLOOD(Performed 06/02/2023) * PHOSPHORUS BLOOD(Performed 06/02/2023) * COMPREHENSIVE METABOLIC PANEL(Performed 06/02/2023) * GLUCOSE - POINT OF CARE(Performed 06/01/2023) * GLUCOSE - POINT OF CARE(Performed 06/01/2023) * XR CHEST 1VW PORTABLE(Performed 06/01/2023) Performed for Fever, unspecified fever cause * GLUCOSE - POINT OF CARE(Performed 06/01/2023) * DIFFERENTIAL MANUAL(Performed 06/01/2023) * PT-INR SLH(Performed 06/01/2023) * MAGNESIUM BLOOD(Performed 06/01/2023) * PHOSPHORUS BLOOD(Performed 06/01/2023) * COMPREHENSIVE METABOLIC PANEL(Performed 06/01/2023) * CBC W AUTO DIFFERENTIAL(Performed 06/01/2023) * GLUCOSE - POINT OF CARE(Performed 06/01/2023) * GLUCOSE - POINT OF CARE(Performed 05/31/2023) * GLUCOSE - POINT OF CARE(Performed 05/31/2023) * XR CHEST 1VW PORTABLE(Performed 05/31/2023) Performed for Fever, unspecified fever cause * URINALYSIS REFLEX MICROSCOPIC REFLEX CULTURE(Performed 05/31/2023) * GLUCOSE - POINT OF CARE(Performed 05/31/2023) * GLUCOSE - POINT OF CARE(Performed 05/31/2023) * CULTURE BLOOD(Performed 05/31/2023) * DIFFERENTIAL MANUAL(Performed 05/31/2023) * PT-INR SLH(Performed 05/31/2023) * MAGNESIUM BLOOD(Performed 05/31/2023) * PHOSPHORUS BLOOD(Performed 05/31/2023) * COMPREHENSIVE METABOLIC PANEL(Performed 05/31/2023) * CBC W AUTO DIFFERENTIAL(Performed 05/31/2023) * CULTURE BLOOD(Performed 05/31/2023) * GLUCOSE - POINT OF CARE(Performed 05/30/2023) * GLUCOSE - POINT OF CARE(Performed 05/30/2023) * GLUCOSE - POINT OF CARE(Performed 05/30/2023) * CT CHEST WO CONTRAST(Performed 05/30/2023) Performed for Chest pain, unspecified type * GLUCOSE - POINT OF CARE(Performed 05/30/2023) * PT-INR SLH(Performed 05/30/2023) * MAGNESIUM BLOOD(Performed 05/30/2023) * PHOSPHORUS BLOOD(Performed 05/30/2023) * COMPREHENSIVE METABOLIC PANEL(Performed 05/30/2023) * CBC W AUTO DIFFERENTIAL(Performed 05/30/2023) * GLUCOSE - POINT OF CARE(Performed 05/29/2023) * GLUCOSE - POINT OF CARE(Performed 05/29/2023) * ASPERGILLUS GALACTOMANNAN AG BAL/BLOOD(Performed 05/29/2023) * WBAP-N-WZNNZD (1,3) (FUNGITELL)(Performed 05/29/2023) * CULTURE BLOOD FUNGUS(Performed 05/29/2023) * CULTURE BLOOD(Performed 05/29/2023) * BLASTOMYCES ANTIGEN QUANT BY EIA URINE(Performed 05/29/2023) * GLUCOSE - POINT OF CARE(Performed 05/29/2023) * GLUCOSE - POINT OF CARE(Performed 05/29/2023) * DIFFERENTIAL MANUAL(Performed 05/29/2023) * PT-INR SLH(Performed 05/29/2023) * CBC W AUTO DIFFERENTIAL(Performed 05/29/2023) * TROPONIN-I HIGH SENSITIVE(Performed 05/28/2023) * MAGNESIUM BLOOD(Performed 05/28/2023) * PHOSPHORUS BLOOD(Performed 05/28/2023) * COMPREHENSIVE METABOLIC PANEL(Performed 05/28/2023) * XR CHEST 1VW PORTABLE(Performed 05/28/2023) Performed for Chest pain, unspecified type * EKG 12-LEAD(Performed 05/28/2023) Performed for Chest pain, unspecified type * GLUCOSE - POINT OF CARE(Performed 05/28/2023) * GLUCOSE - POINT OF CARE(Performed 05/28/2023) * GLUCOSE - POINT OF CARE(Performed 05/28/2023) * GLUCOSE - POINT OF CARE(Performed 05/28/2023) * DIFFERENTIAL MANUAL(Performed 05/28/2023) * PT-INR SLH(Performed 05/28/2023) * MAGNESIUM BLOOD(Performed 05/28/2023) * PHOSPHORUS BLOOD(Performed 05/28/2023) * COMPREHENSIVE METABOLIC PANEL(Performed 05/28/2023) * CBC W AUTO DIFFERENTIAL(Performed 05/28/2023) * GLUCOSE - POINT OF CARE(Performed 05/27/2023) * GLUCOSE - POINT OF CARE(Performed 05/27/2023) * OT EVAL AND TREAT(Performed 05/27/2023) * VAS BILATERAL VENOUS DUPLEX LE(Performed 05/27/2023) Performed for Fever, unspecified fever cause * GLUCOSE - POINT OF CARE(Performed 05/27/2023) * FL SWALLOWING FUNCTION STUDY(Performed 05/27/2023) Performed for Pharyngeal dysphagia * URINE MICROSCOPIC ONLY REFLEX TO CULTURE(Performed 05/27/2023) * URINALYSIS REFLEX MICROSCOPIC REFLEX CULTURE(Performed 05/27/2023) * CULTURE URINE(Performed 05/27/2023) * CULTURE BLOOD(Performed 05/27/2023) * CULTURE BLOOD(Performed 05/27/2023) * GLUCOSE - POINT OF CARE(Performed 05/27/2023) * XR CHEST 1VW PORTABLE(Performed 05/27/2023) Performed for Fever, unspecified fever cause * DIFFERENTIAL MANUAL(Performed 05/27/2023) * PT-INR SLH(Performed 05/27/2023) * MAGNESIUM BLOOD(Performed 05/27/2023) * PHOSPHORUS BLOOD(Performed 05/27/2023) * COMPREHENSIVE METABOLIC PANEL(Performed 05/27/2023) * CBC W AUTO DIFFERENTIAL(Performed 05/27/2023) * GLUCOSE - POINT OF CARE(Performed 05/27/2023) * GLUCOSE - POINT OF CARE(Performed 05/26/2023) * GLUCOSE - POINT OF CARE(Performed 05/26/2023) * PATHOLOGY TISSUE(Performed 05/26/2023) Performed for Gastrointestinal hemorrhage, unspecified gastrointestinal hemorrhage type * OK ED EGD FLEX TRANSORAL DX(Performed 05/26/2023) Performed for Gastrointestinal hemorrhage, unspecified gastrointestinal hemorrhage type * GLUCOSE - POINT OF CARE(Performed 05/26/2023) * EGD(Performed 05/26/2023) * GLUCOSE - POINT OF CARE(Performed 05/26/2023) * DIFFERENTIAL MANUAL(Performed 05/26/2023) * PT-INR SLH(Performed 05/26/2023) * MAGNESIUM BLOOD(Performed 05/26/2023) * PHOSPHORUS BLOOD(Performed 05/26/2023) * COMPREHENSIVE METABOLIC PANEL(Performed 05/26/2023) * CBC W AUTO DIFFERENTIAL(Performed 05/26/2023) * GLUCOSE - POINT OF CARE(Performed 05/25/2023) * GLUCOSE - POINT OF CARE(Performed 05/25/2023) * GLUCOSE - POINT OF CARE(Performed 05/25/2023) * GLUCOSE - POINT OF CARE(Performed 05/25/2023) * GLUCOSE - POINT OF CARE(Performed 05/25/2023) * DIFFERENTIAL MANUAL(Performed 05/25/2023) * MAGNESIUM BLOOD(Performed 05/25/2023) * RENAL FUNCTION PANEL(Performed 05/25/2023) * CBC W AUTO DIFFERENTIAL(Performed 05/25/2023) * GLUCOSE - POINT OF CARE(Performed 05/24/2023) * GLUCOSE - POINT OF CARE(Performed 05/24/2023) * RENAL FUNCTION PANEL(Performed 05/24/2023) * GLUCOSE - POINT OF CARE(Performed 05/24/2023) * GLUCOSE - POINT OF CARE(Performed 05/24/2023) * MAGNESIUM BLOOD(Performed 05/24/2023) * RENAL FUNCTION PANEL(Performed 05/24/2023) * XR ABDOMEN KUB PORTABLE(Performed 05/24/2023) Performed for Lactic acidosis, Dysphagia, unspecified type * DIFFERENTIAL MANUAL(Performed 05/24/2023) * CBC W AUTO DIFFERENTIAL(Performed 05/24/2023) * GLUCOSE - POINT OF CARE(Performed 05/24/2023) * RENAL FUNCTION PANEL(Performed 05/23/2023) * GLUCOSE - POINT OF CARE(Performed 05/23/2023) * GLUCOSE - POINT OF CARE(Performed 05/23/2023) * GLUCOSE - POINT OF CARE(Performed 05/23/2023) * DIFFERENTIAL MANUAL(Performed 05/23/2023) * MAGNESIUM BLOOD(Performed 05/23/2023) * RENAL FUNCTION PANEL(Performed 05/23/2023) * CBC W AUTO DIFFERENTIAL(Performed 05/23/2023) * GLUCOSE - POINT OF CARE(Performed 05/22/2023) * GLUCOSE - POINT OF CARE(Performed 05/22/2023) * RENAL FUNCTION PANEL(Performed 05/22/2023) * IR PICC LINE INSERT(Performed 05/22/2023) Performed for Dysphagia, unspecified type * GLUCOSE - POINT OF CARE(Performed 05/22/2023) * XR ABDOMEN KUB PORTABLE(Performed 05/22/2023) Performed for Decompensated hepatic cirrhosis (HCC) * GLUCOSE - POINT OF CARE(Performed 05/22/2023) * DIFFERENTIAL MANUAL(Performed 05/22/2023) * MAGNESIUM BLOOD(Performed 05/22/2023) * RENAL FUNCTION PANEL(Performed 05/22/2023) * CBC W AUTO DIFFERENTIAL(Performed 05/22/2023) * GLUCOSE - POINT OF CARE(Performed 05/21/2023) * GLUCOSE - POINT OF CARE(Performed 05/21/2023) * RENAL FUNCTION PANEL(Performed 05/21/2023) * MAGNESIUM BLOOD(Performed 05/21/2023) * GLUCOSE - POINT OF CARE(Performed 05/21/2023) * OT EVAL AND TREAT(Performed 05/21/2023) * GLUCOSE - POINT OF CARE(Performed 05/21/2023) * DIFFERENTIAL MANUAL(Performed 05/21/2023) * CBC W AUTO DIFFERENTIAL(Performed 05/21/2023) * COMPREHENSIVE METABOLIC PANEL(Performed 05/21/2023) * MAGNESIUM BLOOD(Performed 05/21/2023) * PT-INR SLH(Performed 05/21/2023) * GLUCOSE - POINT OF CARE(Performed 05/20/2023) * RENAL FUNCTION PANEL(Performed 05/20/2023) * MAGNESIUM BLOOD(Performed 05/20/2023) * GLUCOSE - POINT OF CARE(Performed 05/20/2023) * MAGNESIUM BLOOD(Performed 05/20/2023) * BASIC METABOLIC PANEL (CALCIUM TOTAL)(Performed 05/20/2023) * XR CHEST 1VW PORTABLE(Performed 05/20/2023) Performed for Decompensated hepatic cirrhosis (HCC), Coagulopathy (HCC), Altered mental status, unspecified altered mental status type, Lactic acidosis * BLOOD GASES ART + COOX PANEL(Performed 05/20/2023) * EXTUBATION(Performed 05/20/2023) * GLUCOSE - POINT OF CARE(Performed 05/20/2023) * RENAL FUNCTION PANEL(Performed 05/20/2023) * MAGNESIUM BLOOD(Performed 05/20/2023) * MRSA DNA PCR(Performed 05/20/2023) * CULTURE SPUTUM+GRAM STAIN(Performed 05/20/2023) * XR CHEST 1VW PORTABLE(Performed 05/20/2023) Performed for Lactic acidosis * GLUCOSE - POINT OF CARE(Performed 05/20/2023) * DIFFERENTIAL MANUAL(Performed 05/20/2023) * CBC W AUTO DIFFERENTIAL(Performed 05/20/2023) * COMPREHENSIVE METABOLIC PANEL(Performed 05/20/2023) * MAGNESIUM BLOOD(Performed 05/20/2023) * PT-INR SLH(Performed 05/20/2023) * GLUCOSE - POINT OF CARE(Performed 05/20/2023) * RENAL FUNCTION PANEL(Performed 05/19/2023) * MAGNESIUM BLOOD(Performed 05/19/2023) * GLUCOSE - POINT OF CARE(Performed 05/19/2023) * RENAL FUNCTION PANEL(Performed 05/19/2023) * MAGNESIUM BLOOD(Performed 05/19/2023) * GLUCOSE - POINT OF CARE(Performed 05/19/2023) * GLUCOSE - POINT OF CARE(Performed 05/19/2023) * BLOOD GASES ART + COOX PANEL(Performed 05/19/2023) * DIFFERENTIAL MANUAL(Performed 05/19/2023) * CBC W AUTO DIFFERENTIAL(Performed 05/19/2023) * COMPREHENSIVE METABOLIC PANEL(Performed 05/19/2023) * MAGNESIUM BLOOD(Performed 05/19/2023) * PT-INR [facility](Performed 05/19/2023) * XR CHEST 1VW PORTABLE(Performed 05/19/2023) Performed for Bleeding esophageal varices, unspecified esophageal varices type (HCC) * GLUCOSE - POINT OF CARE(Performed 05/18/2023) * RENAL FUNCTION PANEL(Performed 05/18/2023) * MAGNESIUM BLOOD(Performed 05/18/2023) * GLUCOSE - POINT OF CARE(Performed 05/18/2023) * MRI BRAIN WO CONTRAST(Performed 05/18/2023) Performed for Altered mental status, unspecified altered mental status type * GLUCOSE - POINT OF CARE(Performed 05/18/2023) * GLUCOSE - POINT OF CARE(Performed 05/18/2023) * GLUCOSE - POINT OF CARE(Performed 05/18/2023) * RENAL FUNCTION PANEL(Performed 05/18/2023) * MAGNESIUM BLOOD(Performed 05/18/2023) * GLUCOSE - POINT OF CARE(Performed 05/18/2023) * DIFFERENTIAL MANUAL(Performed 05/18/2023) * PHOSPHORUS BLOOD(Performed 05/18/2023) * MAGNESIUM BLOOD(Performed 05/18/2023) * COMPREHENSIVE METABOLIC PANEL(Performed 05/18/2023) * CBC W AUTO DIFFERENTIAL(Performed 05/18/2023) * PT-INR [facility](Performed 05/18/2023) * CBC W/O DIFFERENTIAL(Performed 05/18/2023) * GLUCOSE - POINT OF CARE(Performed 05/17/2023) * COMPREHENSIVE METABOLIC PANEL(Performed 05/17/2023) * GLUCOSE - POINT OF CARE(Performed 05/17/2023) * GLUCOSE - POINT OF CARE(Performed 05/17/2023) * CBC W/O DIFFERENTIAL(Performed 05/17/2023) * BASIC METABOLIC PANEL (CALCIUM TOTAL)(Performed 05/17/2023) * CT HEAD WO CONTRAST(Performed 05/17/2023) Performed for Hepatic encephalopathy (HCC) * GLUCOSE - POINT OF CARE(Performed 05/17/2023) * SLIDE SCAN HEMATOLOGY(Performed 05/17/2023) * CBC W AUTO DIFFERENTIAL(Performed 05/17/2023) * PT-INR [facility](Performed 05/17/2023) * COMPREHENSIVE METABOLIC PANEL(Performed 05/17/2023) * MAGNESIUM BLOOD(Performed 05/17/2023) * PHOSPHORUS BLOOD(Performed 05/17/2023) * CBC W/O DIFFERENTIAL(Performed 05/17/2023) * GLUCOSE - POINT OF CARE(Performed 05/16/2023) * COMPREHENSIVE METABOLIC PANEL(Performed 05/16/2023) * GLUCOSE - POINT OF CARE(Performed 05/16/2023) * CBC W/O DIFFERENTIAL(Performed 05/16/2023) * RENAL FUNCTION PANEL(Performed 05/16/2023) * GLUCOSE - POINT OF CARE(Performed 05/16/2023) * CBC W/O DIFFERENTIAL(Performed 05/16/2023) * PT-INR [facility](Performed 05/16/2023) * COMPREHENSIVE METABOLIC PANEL(Performed 05/16/2023) * MAGNESIUM BLOOD(Performed 05/16/2023) * PHOSPHORUS BLOOD(Performed 05/16/2023) * GLUCOSE - POINT OF CARE(Performed 05/15/2023) * CBC W/O DIFFERENTIAL(Performed 05/15/2023) * GLUCOSE - POINT OF CARE(Performed 05/15/2023) * OK ED EGD FLEX TRANSORAL DX(Performed 05/15/2023) Performed for Hematemesis, unspecified whether nausea present * CBC W/O DIFFERENTIAL(Performed 05/15/2023) * EGD(Performed 05/15/2023) * PT-INR [facility](Performed 05/15/2023) * CBC W/O DIFFERENTIAL(Performed 05/15/2023) * GLUCOSE - POINT OF CARE(Performed 05/15/2023) * ECHO COMPLETE W CONTRAST(Performed 05/15/2023) Performed for Coagulopathy (HCC) * TRANSFUSE FRESH FROZEN PLASMA UNIT(S)(Performed 05/15/2023) * PREPARE FFP UNIT(S)(Performed 05/15/2023) * TRANSFUSE RED BLOOD CELL LEUKOREDUCED UNIT(S)(Performed 05/15/2023) * PREPARE RBC LEUKOREDUCED UNIT(Performed 05/15/2023) * CBC W/O DIFFERENTIAL(Performed 05/15/2023) * GLUCOSE - POINT OF CARE(Performed 05/15/2023) * PT-INR [facility](Performed 05/15/2023) * COMPREHENSIVE METABOLIC PANEL(Performed 05/15/2023) * MAGNESIUM BLOOD(Performed 05/15/2023) * PHOSPHORUS BLOOD(Performed 05/15/2023) * GLUCOSE - POINT OF CARE(Performed 05/15/2023) * CBC W/O DIFFERENTIAL(Performed 05/14/2023) * GLUCOSE - POINT OF CARE(Performed 05/14/2023) * GLUCOSE - POINT OF CARE(Performed 05/14/2023) * CBC W/O DIFFERENTIAL(Performed 05/14/2023) * GLUCOSE - POINT OF CARE(Performed 05/14/2023) * XR ABDOMEN KUB PORTABLE(Performed 05/14/2023) Performed for Black tarry stools, Hepatic encephalopathy (HCC) * CBC W/O DIFFERENTIAL(Performed 05/14/2023) * GLUCOSE - POINT OF CARE(Performed 05/14/2023) * TRIGLYCERIDES BLOOD(Performed 05/14/2023) * PT-INR [facility](Performed 05/14/2023) * COMPREHENSIVE METABOLIC PANEL(Performed 05/14/2023) * MAGNESIUM BLOOD(Performed 05/14/2023) * PHOSPHORUS BLOOD(Performed 05/14/2023) * GLUCOSE - POINT OF CARE(Performed 05/14/2023) * CBC W/O DIFFERENTIAL(Performed 05/13/2023) * GLUCOSE - POINT OF CARE(Performed 05/13/2023) * EKG 12-LEAD(Performed 05/13/2023) Performed for Hepatic encephalopathy (HCC) * US TIPS W ABDOMEN LIMITED(Performed 05/13/2023) Performed for Bleeding esophageal varices, unspecified esophageal varices type (HCC) * CBC W/O DIFFERENTIAL(Performed 05/13/2023) * GLUCOSE - POINT OF CARE(Performed 05/13/2023) * XR CHEST 1VW PORTABLE(Performed 05/13/2023) Performed for Black tarry stools * TRANSFUSE RED BLOOD CELL LEUKOREDUCED UNIT(S)(Performed 05/13/2023) * PREPARE RBC LEUKOREDUCED UNIT(Performed 05/13/2023) * PT-INR [facility](Performed 05/13/2023) * PTT [facility](Performed 05/13/2023) * CBC W/O DIFFERENTIAL(Performed 05/13/2023) * CBC W/O DIFFERENTIAL(Performed 05/13/2023) * GLUCOSE - POINT OF CARE(Performed 05/13/2023) * PT-INR [facility](Performed 05/13/2023) * COMPREHENSIVE METABOLIC PANEL(Performed 05/13/2023) * MAGNESIUM BLOOD(Performed 05/13/2023) * PHOSPHORUS BLOOD(Performed 05/13/2023) * GLUCOSE - POINT OF CARE(Performed 05/12/2023) * CBC W/O DIFFERENTIAL(Performed 05/12/2023) * IR VISCERAL ANGIO(Performed 05/12/2023) Performed for Bleeding esophageal varices, unspecified esophageal varices type (HCC) * TRANSFUSE RED BLOOD CELL LEUKOREDUCED UNIT(S)(Performed 05/12/2023) * PREPARE RBC LEUKOREDUCED UNIT(Performed 05/12/2023) * CBC W/O DIFFERENTIAL(Performed 05/12/2023) * CT ANGIO ABDOMEN(Performed 05/12/2023) Performed for Bleeding esophageal varices, unspecified esophageal varices type (HCC), Melena * GLUCOSE - POINT OF CARE(Performed 05/12/2023) * XR CHEST 1VW PORTABLE(Performed 05/12/2023) Performed for Decompensated hepatic cirrhosis (HCC) * TRANSFUSE RED BLOOD CELL LEUKOREDUCED UNIT(S)(Performed 05/12/2023) * PREPARE RBC LEUKOREDUCED UNIT(Performed 05/12/2023) * CBC W/O DIFFERENTIAL(Performed 05/12/2023) * BLOOD GASES ART + COOX PANEL(Performed 05/12/2023) * OK ED EGD FLEX TRANSORAL DX(Performed 05/12/2023) Performed for Bleeding esophageal varices, unspecified esophageal varices type (HCC) * EGD(Performed 05/12/2023) * XR CHEST 1VW PORTABLE(Performed 05/12/2023) Performed for Bleeding esophageal varices, unspecified esophageal varices type (HCC) * LACTIC ACID BLOOD(Performed 05/12/2023) * BLOOD GASES ART + COOX PANEL(Performed 05/12/2023) * GLUCOSE - POINT OF CARE(Performed 05/12/2023) * CBC W/O DIFFERENTIAL(Performed 05/12/2023) * TRANSFUSE RED BLOOD CELL LEUKOREDUCED UNIT(S)(Performed 05/12/2023) * PREPARE RBC LEUKOREDUCED UNIT(Performed 05/12/2023) * TYPE + SCREEN PANEL(Performed 05/12/2023) * CBC W/O DIFFERENTIAL(Performed 05/12/2023) * PT-INR [facility](Performed 05/12/2023) * COMPREHENSIVE METABOLIC PANEL(Performed 05/12/2023) * MAGNESIUM BLOOD(Performed 05/12/2023) * PHOSPHORUS BLOOD(Performed 05/12/2023) * CBC W/O DIFFERENTIAL(Performed 05/11/2023) * PT-INR [facility](Performed 05/11/2023) * CULTURE BLOOD(Performed 05/11/2023) * CULTURE BLOOD(Performed 05/11/2023) * CBC W/O DIFFERENTIAL(Performed 05/11/2023) * PHOSPHORUS BLOOD(Performed 05/11/2023) * MAGNESIUM BLOOD(Performed 05/11/2023) * COMPREHENSIVE METABOLIC PANEL(Performed 05/11/2023) * XR CHEST 1VW PORTABLE(Performed 05/11/2023) Performed for Bleeding esophageal varices, unspecified esophageal varices type (HCC) * COMPREHENSIVE METABOLIC PANEL(Performed 05/02/2023) Performed for History of cirrhosis, Acute blood loss anemia, Bleeding esophageal varices, unspecified esophageal varices type (HCC) * CBC W AUTO DIFFERENTIAL(Performed 05/02/2023) Performed for History of cirrhosis, Acute blood loss anemia * ALPHA FETOPROTEIN BLOOD TUMOR MARKER(Performed 05/02/2023) Performed for History of cirrhosis, Acute blood loss anemia, Bleeding esophageal varices, unspecified esophageal varices type (HCC) * CARDIAC EKG ORDER(Performed 04/23/2023) * GLUCOSE - POINT OF CARE(Performed 04/22/2023) * PHOSPHORUS BLOOD(Performed 04/22/2023) * MAGNESIUM BLOOD(Performed 04/22/2023) * PT-INR [facility](Performed 04/22/2023) * COMPREHENSIVE METABOLIC PANEL(Performed 04/22/2023) * CBC W AUTO DIFFERENTIAL(Performed 04/22/2023) * CBC W AUTO DIFFERENTIAL(Performed 04/21/2023) * CBC W AUTO DIFFERENTIAL(Performed 04/21/2023) * PHOSPHORUS BLOOD(Performed 04/21/2023) * MAGNESIUM BLOOD(Performed 04/21/2023) * PT-INR [facility](Performed 04/21/2023) * COMPREHENSIVE METABOLIC PANEL(Performed 04/21/2023) * CBC W AUTO DIFFERENTIAL(Performed 04/20/2023) * CBC W AUTO DIFFERENTIAL(Performed 04/20/2023) * GLUCOSE - POINT OF CARE(Performed 04/20/2023) * CBC W AUTO DIFFERENTIAL(Performed 04/20/2023) * PHOSPHORUS BLOOD(Performed 04/20/2023) * MAGNESIUM BLOOD(Performed 04/20/2023) * PT-INR [facility](Performed 04/20/2023) * COMPREHENSIVE METABOLIC PANEL(Performed 04/20/2023) * CBC W AUTO DIFFERENTIAL(Performed 04/19/2023) * GLUCOSE - POINT OF CARE(Performed 04/19/2023) * CBC W AUTO DIFFERENTIAL(Performed 04/19/2023) * GLUCOSE - POINT OF CARE(Performed 04/19/2023) * GLUCOSE - POINT OF CARE(Performed 04/19/2023) * PHOSPHORUS BLOOD(Performed 04/19/2023) * MAGNESIUM BLOOD(Performed 04/19/2023) * PT-INR [facility](Performed 04/19/2023) * COMPREHENSIVE METABOLIC PANEL(Performed 04/19/2023) * CBC W AUTO DIFFERENTIAL(Performed 04/19/2023) * GLUCOSE - POINT OF CARE(Performed 04/18/2023) * CBC W AUTO DIFFERENTIAL(Performed 04/18/2023) * CBC W AUTO DIFFERENTIAL(Performed 04/18/2023) * ECHO COMPLETE W CONTRAST(Performed 04/18/2023) Performed for Syncope and collapse * GLUCOSE - POINT OF CARE(Performed 04/18/2023) * PREPARE RBC LEUKOREDUCED UNIT(Performed 04/18/2023) * PHOSPHORUS BLOOD(Performed 04/18/2023) * MAGNESIUM BLOOD(Performed 04/18/2023) * COMPREHENSIVE METABOLIC PANEL(Performed 04/18/2023) * CBC W AUTO DIFFERENTIAL(Performed 04/18/2023) * PT-INR [facility](Performed 04/18/2023) * GLUCOSE - POINT OF CARE(Performed 04/17/2023) * CBC W AUTO DIFFERENTIAL(Performed 04/17/2023) * IR EMBO ART VEIN HEMOR OR LYMPH EXTR(Performed 04/17/2023) Performed for Upper GI bleed * GLUCOSE - POINT OF CARE(Performed 04/17/2023) * GLUCOSE - POINT OF CARE(Performed 04/17/2023) * OK ED EGD FLEX TRANSORAL DX(Performed 04/17/2023) Performed for Melena * EGD(Performed 04/17/2023) * CULTURE BLOOD(Performed 04/17/2023) * CULTURE BLOOD(Performed 04/17/2023) * CBC W AUTO DIFFERENTIAL(Performed 04/17/2023) * TRANSFUSE RED BLOOD CELL LEUKOREDUCED UNIT(S)(Performed 04/17/2023) * PREPARE RBC LEUKOREDUCED UNIT(Performed 04/17/2023) * COMPREHENSIVE METABOLIC PANEL(Performed 04/17/2023) * CBC W AUTO DIFFERENTIAL(Performed 04/17/2023) * TROPONIN-I HIGH SENSITIVE REFLEX 1HOUR(Performed 04/17/2023) * TRANSFUSE RED BLOOD CELL LEUKOREDUCED UNIT(S)(Performed 04/17/2023) * URINALYSIS REFLEX TO MICROSCOPIC NO CULTURE(Performed 04/17/2023) * PREPARE RBC LEUKOREDUCED UNIT(Performed 04/17/2023) * TRANSFUSE RED BLOOD CELL LEUKOREDUCED UNIT(S)(Performed 04/17/2023) * TYPE + SCREEN PANEL(Performed 04/16/2023) * TROPONIN-I HIGH SENSITIVE BASELINE + 1HR(Performed 04/16/2023) * PT-INR [facility](Performed 04/16/2023) * MAGNESIUM BLOOD(Performed 04/16/2023) * COMPREHENSIVE METABOLIC PANEL(Performed 04/16/2023) * CBC W AUTO DIFFERENTIAL(Performed 04/16/2023) * EKG 12-LEAD(Performed 04/16/2023) Performed for Syncope and collapse * XR CHEST 1VW PORTABLE(Performed 04/16/2023) Performed for Syncope and collapse * PREPARE RBC LEUKOREDUCED UNIT(Performed 04/05/2023) * MAGNESIUM BLOOD(Performed 04/04/2023) Performed for Acute blood loss anemia * PT-INR [facility](Performed 04/04/2023) Performed for Acute blood loss anemia * COMPREHENSIVE METABOLIC PANEL(Performed 04/04/2023) Performed for Acute blood loss anemia * CBC W AUTO DIFFERENTIAL(Performed 04/04/2023) Performed for Acute blood loss anemia * GLUCOSE - POINT OF CARE(Performed 04/04/2023) * GLUCOSE - POINT OF CARE(Performed 04/04/2023) * GLUCOSE - POINT OF CARE(Performed 04/03/2023) * CBC W AUTO DIFFERENTIAL(Performed 04/03/2023) * OK ED EGD FLEX TRANSORAL DX(Performed 04/03/2023) Performed for Hematemesis, unspecified whether nausea present * EGD(Performed 04/03/2023) * CBC W AUTO DIFFERENTIAL(Performed 04/03/2023) * GLUCOSE - POINT OF CARE(Performed 04/03/2023) * US TIPS W ABDOMEN LIMITED(Performed 04/03/2023) Performed for S/P TIPS (transjugular intrahepatic portosystemic shunt) * GLUCOSE - POINT OF CARE(Performed 04/03/2023) * LACTIC ACID BLOOD REFLEX TO REPEAT(Performed 04/03/2023) * LACTIC ACID BLOOD(Performed 04/03/2023) * LACTIC ACID REPEAT REFLEX(Performed 04/03/2023) * LACTIC ACID BLOOD(Performed 04/03/2023) * HEMOGLOBIN A1C(Performed 04/03/2023) * CBC W AUTO DIFFERENTIAL(Performed 04/03/2023) * PT-INR [facility](Performed 04/03/2023) Performed for Acute blood loss anemia * PHOSPHORUS BLOOD(Performed 04/03/2023) Performed for Acute blood loss anemia * MAGNESIUM BLOOD(Performed 04/03/2023) * COMPREHENSIVE METABOLIC PANEL(Performed 04/03/2023) Performed for Nausea and vomiting, unspecified vomiting type * LACTIC ACID BLOOD REFLEX TO REPEAT(Performed 04/03/2023) * CULTURE BLOOD(Performed 04/03/2023) * CULTURE BLOOD(Performed 04/03/2023) * GLUCOSE - POINT OF CARE(Performed 04/03/2023) * XR CHEST 1VW PORTABLE(Performed 04/03/2023) Performed for Acute blood loss anemia * CT LIVER 3 PHASE W PELVIS(Performed 04/02/2023) Performed for Nausea and vomiting, unspecified vomiting type * OT EVAL AND TREAT(Performed 04/02/2023) * LACTIC ACID REPEAT REFLEX(Performed 04/02/2023) * TYPE + SCREEN PANEL(Performed 04/02/2023) * PHOSPHORUS BLOOD(Performed 04/02/2023) * MAGNESIUM BLOOD(Performed 04/02/2023) * PT-INR [facility](Performed 04/02/2023) * LACTIC ACID BLOOD REFLEX TO REPEAT(Performed 04/02/2023) * COMPREHENSIVE METABOLIC PANEL(Performed 04/02/2023) * CBC W AUTO DIFFERENTIAL(Performed 04/02/2023) * CBC W/O DIFFERENTIAL(Performed 03/21/2023) Performed for Upper GI bleed * PT-INR [facility](Performed 03/21/2023) Performed for Upper GI bleed * PHOSPHORUS BLOOD(Performed 03/21/2023) Performed for Upper GI bleed * MAGNESIUM BLOOD(Performed 03/21/2023) Performed for Upper GI bleed * COMPREHENSIVE METABOLIC PANEL(Performed 03/21/2023) Performed for Upper GI bleed * HGB HCT PANEL(Performed 03/20/2023) * CBC W/O DIFFERENTIAL(Performed 03/20/2023) Performed for Upper GI bleed * PT-INR [facility](Performed 03/20/2023) Performed for Upper GI bleed * PHOSPHORUS BLOOD(Performed 03/20/2023) Performed for Upper GI bleed * MAGNESIUM BLOOD(Performed 03/20/2023) Performed for Upper GI bleed * COMPREHENSIVE METABOLIC PANEL(Performed 03/20/2023) Performed for Upper GI bleed * IR TIPS REVISION(Performed 03/19/2023) Performed for Upper GI bleed * CBC W/O DIFFERENTIAL(Performed 03/19/2023) Performed for Upper GI bleed * PT-INR [facility](Performed 03/19/2023) Performed for Upper GI bleed * PHOSPHORUS BLOOD(Performed 03/19/2023) Performed for Upper GI bleed * MAGNESIUM BLOOD(Performed 03/19/2023) Performed for Upper GI bleed * COMPREHENSIVE METABOLIC PANEL(Performed 03/19/2023) Performed for Upper GI bleed * CBC W/O DIFFERENTIAL(Performed 03/18/2023) Performed for Upper GI bleed * PT-INR [facility](Performed 03/18/2023) Performed for Upper GI bleed * PHOSPHORUS BLOOD(Performed 03/18/2023) Performed for Upper GI bleed * MAGNESIUM BLOOD(Performed 03/18/2023) Performed for Upper GI bleed * COMPREHENSIVE METABOLIC PANEL(Performed 03/18/2023) Performed for Upper GI bleed * CBC W/O DIFFERENTIAL(Performed 03/17/2023) Performed for Upper GI bleed * PT-INR [facility](Performed 03/17/2023) Performed for Upper GI bleed * PHOSPHORUS BLOOD(Performed 03/17/2023) Performed for Upper GI bleed * MAGNESIUM BLOOD(Performed 03/17/2023) Performed for Upper GI bleed * COMPREHENSIVE METABOLIC PANEL(Performed 03/17/2023) Performed for Upper GI bleed * URINALYSIS REFLEX MICROSCOPIC REFLEX CULTURE(Performed 03/16/2023) * CBC W/O DIFFERENTIAL(Performed 03/16/2023) Performed for Upper GI bleed * PT-INR [facility](Performed 03/16/2023) Performed for Upper GI bleed * PHOSPHORUS BLOOD(Performed 03/16/2023) Performed for Upper GI bleed * MAGNESIUM BLOOD(Performed 03/16/2023) Performed for Upper GI bleed * COMPREHENSIVE METABOLIC PANEL(Performed 03/16/2023) Performed for Upper GI bleed * CBC W/O DIFFERENTIAL(Performed 03/15/2023) Performed for Upper GI bleed * PT-INR [facility](Performed 03/15/2023) Performed for Upper GI bleed * PHOSPHORUS BLOOD(Performed 03/15/2023) Performed for Upper GI bleed * MAGNESIUM BLOOD(Performed 03/15/2023) Performed for Upper GI bleed * COMPREHENSIVE METABOLIC PANEL(Performed 03/15/2023) Performed for Upper GI bleed * CBC W/O DIFFERENTIAL(Performed 03/14/2023) Performed for Upper GI bleed * PT-INR [facility](Performed 03/14/2023) Performed for Upper GI bleed * PHOSPHORUS BLOOD(Performed 03/14/2023) Performed for Upper GI bleed * MAGNESIUM BLOOD(Performed 03/14/2023) Performed for Upper GI bleed * COMPREHENSIVE METABOLIC PANEL(Performed 03/14/2023) Performed for Upper GI bleed * PT-INR [facility](Performed 03/13/2023) * PHOSPHORUS BLOOD(Performed 03/13/2023) Performed for Upper GI bleed * MAGNESIUM BLOOD(Performed 03/13/2023) Performed for Upper GI bleed * COMPREHENSIVE METABOLIC PANEL(Performed 03/13/2023) Performed for Upper GI bleed * CBC W/O DIFFERENTIAL(Performed 03/13/2023) Performed for Upper GI bleed * CBC W/O DIFFERENTIAL(Performed 03/12/2023) Performed for Upper GI bleed * CBC W/O DIFFERENTIAL(Performed 03/12/2023) Performed for Upper GI bleed * PT-INR [facility](Performed 03/12/2023) Performed for Upper GI bleed * PHOSPHORUS BLOOD(Performed 03/12/2023) Performed for Upper GI bleed * MAGNESIUM BLOOD(Performed 03/12/2023) Performed for Upper GI bleed * COMPREHENSIVE METABOLIC PANEL(Performed 03/12/2023) Performed for Upper GI bleed * PREPARE RBC LEUKOREDUCED UNIT(Performed 03/12/2023) * TRANSFUSE RED BLOOD CELL LEUKOREDUCED UNIT(S)(Performed 03/12/2023) * PREPARE RBC LEUKOREDUCED UNIT(Performed 03/12/2023) * TYPE + SCREEN PANEL(Performed 03/11/2023) * CBC W/O DIFFERENTIAL(Performed 03/11/2023) Performed for Upper GI bleed * CBC W/O DIFFERENTIAL(Performed 03/11/2023) Performed for Upper GI bleed * OT EVAL AND TREAT(Performed 03/11/2023) * CBC W/O DIFFERENTIAL(Performed 03/11/2023) Performed for Upper GI bleed * PT-INR [facility](Performed 03/11/2023) Performed for Upper GI bleed * PHOSPHORUS BLOOD(Performed 03/11/2023) Performed for Upper GI bleed * MAGNESIUM BLOOD(Performed 03/11/2023) Performed for Upper GI bleed * COMPREHENSIVE METABOLIC PANEL(Performed 03/11/2023) Performed for Upper GI bleed * TRANSFUSE RED BLOOD CELL LEUKOREDUCED UNIT(S)(Performed 03/10/2023) * PREPARE RBC LEUKOREDUCED UNIT(Performed 03/10/2023) * CBC W/O DIFFERENTIAL(Performed 03/10/2023) Performed for Upper GI bleed * CT LIVER 3 PHASE W PELVIS(Performed 03/10/2023) Performed for Gastric varices, S/P TIPS (transjugular intrahepatic portosystemic shunt) * CBC W/O DIFFERENTIAL(Performed 03/10/2023) Performed for Upper GI bleed * CARDIAC EKG ORDER(Performed 03/10/2023) * OK ED EGD FLEX TRANSORAL DX(Performed 03/10/2023) Performed for Gastrointestinal hemorrhage, unspecified gastrointestinal hemorrhage type * EGD(Performed 03/10/2023) * PT-INR [facility](Performed 03/10/2023) Performed for Upper GI bleed * PHOSPHORUS BLOOD(Performed 03/10/2023) Performed for Upper GI bleed * MAGNESIUM BLOOD(Performed 03/10/2023) Performed for Upper GI bleed * COMPREHENSIVE METABOLIC PANEL(Performed 03/10/2023) Performed for Upper GI bleed * CBC W/O DIFFERENTIAL(Performed 03/10/2023) Performed for Upper GI bleed * CBC W/O DIFFERENTIAL(Performed 03/09/2023) Performed for Upper GI bleed * GLUCOSE - POINT OF CARE(Performed 03/09/2023) * GLUCOSE - POINT OF CARE(Performed 03/09/2023) * PT-INR [facility](Performed 03/09/2023) Performed for Upper GI bleed * PHOSPHORUS BLOOD(Performed 03/09/2023) Performed for Upper GI bleed * MAGNESIUM BLOOD(Performed 03/09/2023) Performed for Upper GI bleed * COMPREHENSIVE METABOLIC PANEL(Performed 03/09/2023) Performed for Upper GI bleed * CBC W/O DIFFERENTIAL(Performed 03/09/2023) Performed for Upper GI bleed * CBC W/O DIFFERENTIAL(Performed 03/08/2023) * ED CENTRAL LINE PLACEMENT(Performed 03/08/2023) * XR CHEST 1VW PORTABLE(Performed 03/08/2023) Performed for Upper GI bleed * COMPREHENSIVE METABOLIC PANEL(Performed 03/08/2023) Performed for Upper GI bleed * CBC W/O DIFFERENTIAL(Performed 03/08/2023) Performed for Upper GI bleed * CBC W/O DIFFERENTIAL(Performed 03/08/2023) Performed for Upper GI bleed, Anemia, unspecified type * CBC W/O DIFFERENTIAL(Performed 03/08/2023) Performed for Upper GI bleed * TRANSFUSE RED BLOOD CELL LEUKOREDUCED UNIT(S)(Performed 03/08/2023) * PREPARE RBC LEUKOREDUCED UNIT(Performed 03/08/2023) * TRANSFUSE RED BLOOD CELL LEUKOREDUCED UNIT(S)(Performed 03/08/2023) * PREPARE RBC LEUKOREDUCED UNIT(Performed 03/08/2023) * TYPE + SCREEN PANEL(Performed 03/08/2023) * MAGNESIUM BLOOD(Performed 03/08/2023) Performed for Upper GI bleed * PHOSPHORUS BLOOD(Performed 03/08/2023) Performed for Upper GI bleed * PT-INR [facility](Performed 03/08/2023) Performed for Upper GI bleed * COMPREHENSIVE METABOLIC PANEL(Performed 03/08/2023) Performed for Upper GI bleed * CBC W/O DIFFERENTIAL(Performed 03/08/2023) Performed for Upper GI bleed * TROPONIN-I HIGH SENSITIVE REFLEX 1HOUR(Performed 03/07/2023) * B-TYPE NATRIURETIC PEPTIDE(Performed 03/07/2023) * TROPONIN-I HIGH SENSITIVE BASELINE + 1HR(Performed 03/07/2023) * MAGNESIUM BLOOD(Performed 03/07/2023) * LIPASE BLOOD(Performed 03/07/2023) * COMPREHENSIVE METABOLIC PANEL(Performed 03/07/2023) * CBC W AUTO DIFFERENTIAL(Performed 03/07/2023) * SARS-COV-2 (COVID-19)+INFLU A+B PCR RAPID(Performed 03/07/2023) * EKG 12-LEAD(Performed 03/07/2023) Performed for Chest pain, unspecified type * CBC W/O DIFFERENTIAL(Performed 02/20/2023) * PHOSPHORUS BLOOD(Performed 02/20/2023) * MAGNESIUM BLOOD(Performed 02/20/2023) * COMPREHENSIVE METABOLIC PANEL(Performed 02/20/2023) * CBC W/O DIFFERENTIAL(Performed 02/19/2023) * PHOSPHORUS BLOOD(Performed 02/19/2023) * MAGNESIUM BLOOD(Performed 02/19/2023) * COMPREHENSIVE METABOLIC PANEL(Performed 02/19/2023) * PREPARE RBC LEUKOREDUCED UNIT(Performed 02/19/2023) * PREPARE RBC LEUKOREDUCED UNIT(Performed 02/19/2023) * ECHO COMPLETE(Performed 02/18/2023) Performed for Chronic heart failure with preserved ejection fraction (HCC) * PHOSPHORUS BLOOD(Performed 02/18/2023) * MAGNESIUM BLOOD(Performed 02/18/2023) * COMPREHENSIVE METABOLIC PANEL(Performed 02/18/2023) * CBC W/O DIFFERENTIAL(Performed 02/18/2023) * CBC W/O DIFFERENTIAL(Performed 02/17/2023) * CARDIAC EKG ORDER(Performed 02/17/2023) * CBC W/O DIFFERENTIAL(Performed 02/17/2023) * PHOSPHORUS BLOOD(Performed 02/17/2023) * MAGNESIUM BLOOD(Performed 02/17/2023) * COMPREHENSIVE METABOLIC PANEL(Performed 02/17/2023) * CBC W/O DIFFERENTIAL(Performed 02/16/2023) * CBC W/O DIFFERENTIAL(Performed 02/16/2023) * OK ED EGD FLEX TRANSORAL DX(Performed 02/16/2023) Performed for Melena * EGD(Performed 02/16/2023) * CBC W/O DIFFERENTIAL(Performed 02/16/2023) * US TIPS W ABDOMEN LIMITED(Performed 02/16/2023) Performed for Postural dizziness with presyncope, Melena, 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) * CBC W/O DIFFERENTIAL(Performed 02/16/2023) * CBC W/O DIFFERENTIAL(Performed 02/16/2023) * PHOSPHORUS BLOOD(Performed 02/16/2023) * MAGNESIUM BLOOD(Performed 02/16/2023) * COMPREHENSIVE METABOLIC PANEL(Performed 02/16/2023) * LACTIC ACID BLOOD REFLEX TO REPEAT(Performed 02/15/2023) * CBC W/O DIFFERENTIAL(Performed 02/15/2023) * TROPONIN-I HIGH SENSITIVE REFLEX 1HOUR(Performed 02/15/2023) * EKG 12-LEAD(Performed 02/15/2023) Performed for Upper GI bleed * LACTIC ACID REPEAT REFLEX(Performed 02/15/2023) * LACTIC ACID BLOOD REFLEX TO REPEAT(Performed 02/15/2023) * TRANSFUSE RED BLOOD CELL LEUKOREDUCED UNIT(S)(Performed 02/15/2023) * EKG 12-LEAD(Performed 02/15/2023) Performed for Postural dizziness with presyncope * LACTIC ACID REPEAT REFLEX(Performed 02/15/2023) * TYPE + SCREEN PANEL(Performed 02/15/2023) * LIPASE BLOOD(Performed 02/15/2023) * AMMONIA(Performed 02/15/2023) * MAGNESIUM BLOOD(Performed 02/15/2023) * TROPONIN-I HIGH SENSITIVE BASELINE + 1HR(Performed 02/15/2023) * PT-INR [facility](Performed 02/15/2023) * LACTIC ACID BLOOD REFLEX TO REPEAT(Performed 02/15/2023) * COMPREHENSIVE METABOLIC PANEL(Performed 02/15/2023) * CBC W AUTO DIFFERENTIAL(Performed 02/15/2023) * XR CHEST 1VW PORTABLE(Performed 02/15/2023) Performed for Postural dizziness with presyncope * GLUCOSE - POINT OF CARE(Performed 02/08/2023) * GLUCOSE - POINT OF CARE(Performed 02/08/2023) * CBC W/O DIFFERENTIAL(Performed 02/08/2023) * PT-INR [facility](Performed 02/08/2023) * PHOSPHORUS BLOOD(Performed 02/08/2023) * MAGNESIUM BLOOD(Performed 02/08/2023) * COMPREHENSIVE METABOLIC PANEL(Performed 02/08/2023) * CBC W/O DIFFERENTIAL(Performed 02/07/2023) * GLUCOSE - POINT OF CARE(Performed 02/07/2023) * GLUCOSE - POINT OF CARE(Performed 02/07/2023) * CBC W/O DIFFERENTIAL(Performed 02/07/2023) * GLUCOSE - POINT OF CARE(Performed 02/07/2023) * CBC W/O DIFFERENTIAL(Performed 02/07/2023) * PT-INR [facility](Performed 02/07/2023) * PHOSPHORUS BLOOD(Performed 02/07/2023) * MAGNESIUM BLOOD(Performed 02/07/2023) * COMPREHENSIVE METABOLIC PANEL(Performed 02/07/2023) * GLUCOSE - POINT OF CARE(Performed 02/07/2023) * CBC W/O DIFFERENTIAL(Performed 02/06/2023) * GLUCOSE - POINT OF CARE(Performed 02/06/2023) * CBC W/O DIFFERENTIAL(Performed 02/06/2023) * GLUCOSE - POINT OF CARE(Performed 02/06/2023) * GLUCOSE - POINT OF CARE(Performed 02/06/2023) * GLUCOSE - POINT OF CARE(Performed 02/06/2023) * TRANSFUSE RED BLOOD CELL LEUKOREDUCED UNIT(S)(Performed 02/06/2023) * PREPARE RBC LEUKOREDUCED UNIT(Performed 02/06/2023) * TYPE + SCREEN PANEL(Performed 02/06/2023) * PT-INR [facility](Performed 02/06/2023) * PHOSPHORUS BLOOD(Performed 02/06/2023) * MAGNESIUM BLOOD(Performed 02/06/2023) * COMPREHENSIVE METABOLIC PANEL(Performed 02/06/2023) * CBC W/O DIFFERENTIAL(Performed 02/06/2023) * GLUCOSE - POINT OF CARE(Performed 02/06/2023) * CBC W/O DIFFERENTIAL(Performed 02/05/2023) * GLUCOSE - POINT OF CARE(Performed 02/05/2023) * GLUCOSE - POINT OF CARE(Performed 02/05/2023) * GLUCOSE - POINT OF CARE(Performed 02/05/2023) * CBC W/O DIFFERENTIAL(Performed 02/05/2023) * PT-INR [facility](Performed 02/05/2023) * PHOSPHORUS BLOOD(Performed 02/05/2023) * MAGNESIUM BLOOD(Performed 02/05/2023) * COMPREHENSIVE METABOLIC PANEL(Performed 02/05/2023) * CBC W/O DIFFERENTIAL(Performed 02/04/2023) * GLUCOSE - POINT OF CARE(Performed 02/04/2023) * XR ABDOMEN KUB PORTABLE(Performed 02/04/2023) Performed for Gastric varices * XR ABDOMEN KUB PORTABLE(Performed 02/04/2023) Performed for Upper GI bleed, Gastric varices * XR CHEST 1VW PORTABLE(Performed 02/04/2023) Performed for Decompensated hepatic cirrhosis (HCC), Gastric varices * PT-INR [facility](Performed 02/04/2023) * CBC W/O DIFFERENTIAL(Performed 02/04/2023) * PHOSPHORUS BLOOD(Performed 02/04/2023) * MAGNESIUM BLOOD(Performed 02/04/2023) * COMPREHENSIVE METABOLIC PANEL(Performed 02/04/2023) * GLUCOSE - POINT OF CARE(Performed 02/04/2023) * CBC W/O DIFFERENTIAL(Performed 02/03/2023) * GLUCOSE - POINT OF CARE(Performed 02/03/2023) * GLUCOSE - POINT OF CARE(Performed 02/03/2023) * CBC W/O DIFFERENTIAL(Performed 02/03/2023) * GLUCOSE - POINT OF CARE(Performed 02/03/2023) * CBC W/O DIFFERENTIAL(Performed 02/03/2023) * TSH REFLEX FREE T4(Performed 02/03/2023) * PT-INR [facility](Performed 02/03/2023) * PHOSPHORUS BLOOD(Performed 02/03/2023) * MAGNESIUM BLOOD(Performed 02/03/2023) * COMPREHENSIVE METABOLIC PANEL(Performed 02/03/2023) * GLUCOSE - POINT OF CARE(Performed 02/03/2023) * CT HEAD WO CONTRAST(Performed 02/02/2023) Performed for Upper GI bleed * CBC W/O DIFFERENTIAL(Performed 02/02/2023) * IR EMBO ART VEIN HEMOR OR LYMPH EXTR(Performed 02/02/2023) Performed for Upper GI bleed * TYPE + SCREEN PANEL(Performed 02/02/2023) * MAGNESIUM BLOOD(Performed 02/02/2023) * PHOSPHORUS BLOOD(Performed 02/02/2023) * PT-INR [facility](Performed 02/02/2023) * COMPREHENSIVE METABOLIC PANEL(Performed 02/02/2023) * CBC W/O DIFFERENTIAL(Performed 02/02/2023) * XR CHEST 1VW PORTABLE(Performed 02/02/2023) Performed for Upper GI bleed, Decompensated hepatic cirrhosis (HCC) * XR ABDOMEN KUB PORTABLE(Performed 02/02/2023) Performed for Upper GI bleed, Decompensated hepatic cirrhosis (HCC) * ALPHA FETOPROTEIN BLOOD TUMOR MARKER(Performed 12/03/2022) Performed for 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) * PT-INR [facility](Performed 12/03/2022) Performed for 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) * COMPREHENSIVE METABOLIC PANEL(Performed 12/03/2022) Performed for 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) * CBC W/O DIFFERENTIAL(Performed 12/03/2022) Performed for 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) * CBC W AUTO DIFFERENTIAL(Performed 10/02/2022) * COMPREHENSIVE METABOLIC PANEL(Performed 10/02/2022) * PT-INR [facility](Performed 10/02/2022) * PHOSPHORUS BLOOD(Performed 10/02/2022) * MAGNESIUM BLOOD(Performed 10/02/2022) * CBC W AUTO DIFFERENTIAL(Performed 10/01/2022) * COMPREHENSIVE METABOLIC PANEL(Performed 10/01/2022) * PT-INR [facility](Performed 10/01/2022) * PHOSPHORUS BLOOD(Performed 10/01/2022) * MAGNESIUM BLOOD(Performed 10/01/2022) * CBC W AUTO DIFFERENTIAL(Performed 09/30/2022) * COMPREHENSIVE METABOLIC PANEL(Performed 09/30/2022) * PT-INR [facility](Performed 09/30/2022) * PHOSPHORUS BLOOD(Performed 09/30/2022) * MAGNESIUM BLOOD(Performed 09/30/2022) * CBC W AUTO DIFFERENTIAL(Performed 09/29/2022) * COMPREHENSIVE METABOLIC PANEL(Performed 09/29/2022) * PT-INR [facility](Performed 09/29/2022) * PHOSPHORUS BLOOD(Performed 09/29/2022) * MAGNESIUM BLOOD(Performed 09/29/2022) * CBC W AUTO DIFFERENTIAL(Performed 09/28/2022) * COMPREHENSIVE METABOLIC PANEL(Performed 09/28/2022) * PT-INR [facility](Performed 09/28/2022) * PHOSPHORUS BLOOD(Performed 09/28/2022) * MAGNESIUM BLOOD(Performed 09/28/2022) * CBC W AUTO DIFFERENTIAL(Performed 2022) * COMPREHENSIVE METABOLIC PANEL(Performed 2022) * PHOSPHORUS BLOOD(Performed 2022) * MAGNESIUM BLOOD(Performed 2022) * PT-INR [facility](Performed 2022) * CBC W AUTO DIFFERENTIAL(Performed 09/26/2022) * COMPREHENSIVE METABOLIC PANEL(Performed 09/26/2022) * PHOSPHORUS BLOOD(Performed 09/26/2022) * MAGNESIUM BLOOD(Performed 09/26/2022) * CBC W AUTO DIFFERENTIAL(Performed 09/25/2022) * COMPREHENSIVE METABOLIC PANEL(Performed 09/25/2022) * PT-INR [facility](Performed 09/25/2022) * PHOSPHORUS BLOOD(Performed 09/25/2022) * MAGNESIUM BLOOD(Performed 09/25/2022) * COMPREHENSIVE METABOLIC PANEL(Performed 09/24/2022) * GLUCOSE - POINT OF CARE(Performed 09/24/2022) * CBC W AUTO DIFFERENTIAL(Performed 09/24/2022) * PT-INR [facility](Performed 09/24/2022) * PHOSPHORUS BLOOD(Performed 09/24/2022) * MAGNESIUM BLOOD(Performed 09/24/2022) * COMPREHENSIVE METABOLIC PANEL(Performed 09/24/2022) * GLUCOSE - POINT OF CARE(Performed 09/24/2022) * COMPREHENSIVE METABOLIC PANEL(Performed 09/23/2022) * GLUCOSE - POINT OF CARE(Performed 09/23/2022) * GLUCOSE - POINT OF CARE(Performed 09/23/2022) * CBC W AUTO DIFFERENTIAL(Performed 09/23/2022) * GLUCOSE - POINT OF CARE(Performed 09/23/2022) * COMPREHENSIVE METABOLIC PANEL(Performed 09/23/2022) * TRANSFUSE RED BLOOD CELL LEUKOREDUCED UNIT(S)(Performed 09/23/2022) * PREPARE RBC LEUKOREDUCED UNIT(Performed 09/23/2022) * GLUCOSE - POINT OF CARE(Performed 09/23/2022) * COMPREHENSIVE METABOLIC PANEL(Performed 09/23/2022) * CBC W AUTO DIFFERENTIAL(Performed 09/23/2022) * PT-INR [facility](Performed 09/23/2022) * FIBRINOGEN ACTIVITY(Performed 09/23/2022) * PTT [facility](Performed 09/23/2022) * PHOSPHORUS BLOOD(Performed 09/23/2022) * MAGNESIUM BLOOD(Performed 09/23/2022) * BLOOD GASES ART + COOX PANEL(Performed 09/23/2022) * CBC W/O DIFFERENTIAL(Performed 09/22/2022) * COMPREHENSIVE METABOLIC PANEL(Performed 09/22/2022) * TRANSFUSE RED BLOOD CELL LEUKOREDUCED UNIT(S)(Performed 09/22/2022) * PREPARE RBC LEUKOREDUCED UNIT(Performed 09/22/2022) * COMPREHENSIVE METABOLIC PANEL(Performed 09/22/2022) * CBC W AUTO DIFFERENTIAL(Performed 09/22/2022) * GLUCOSE - POINT OF CARE(Performed 09/22/2022) * COMPREHENSIVE METABOLIC PANEL(Performed 09/22/2022) * GLUCOSE - POINT OF CARE(Performed 09/22/2022) * GLUCOSE - POINT OF CARE(Performed 09/22/2022) * TRANSFUSE RED BLOOD CELL LEUKOREDUCED UNIT(S)(Performed 09/22/2022) * PREPARE RBC LEUKOREDUCED UNIT(Performed 09/22/2022) * TYPE + SCREEN PANEL(Performed 09/22/2022) * GLUCOSE - POINT OF CARE(Performed 09/22/2022) * CBC W AUTO DIFFERENTIAL(Performed 09/22/2022) * PT-INR [facility](Performed 09/22/2022) * FIBRINOGEN ACTIVITY(Performed 09/22/2022) * PTT [facility](Performed 09/22/2022) * COMPREHENSIVE METABOLIC PANEL(Performed 09/22/2022) * PHOSPHORUS BLOOD(Performed 09/22/2022) * MAGNESIUM BLOOD(Performed 09/22/2022) * GLUCOSE - POINT OF CARE(Performed 09/22/2022) * GLUCOSE - POINT OF CARE(Performed 09/21/2022) * DIFFERENTIAL MANUAL(Performed 09/21/2022) * CBC W AUTO DIFFERENTIAL(Performed 09/21/2022) * GLUCOSE - POINT OF CARE(Performed 09/21/2022) * BLOOD GASES ART + COOX PANEL(Performed 09/21/2022) * GLUCOSE - POINT OF CARE(Performed 09/21/2022) * DIFFERENTIAL MANUAL(Performed 09/21/2022) * CBC W AUTO DIFFERENTIAL(Performed 09/21/2022) * PT-INR [facility](Performed 09/21/2022) * FIBRINOGEN ACTIVITY(Performed 09/21/2022) * PTT [facility](Performed 09/21/2022) * COMPREHENSIVE METABOLIC PANEL(Performed 09/21/2022) * PHOSPHORUS BLOOD(Performed 09/21/2022) * MAGNESIUM BLOOD(Performed 09/21/2022) * GLUCOSE - POINT OF CARE(Performed 09/21/2022) * PREPARE CRYOPRECIPITATE UNIT(S)(Performed 09/21/2022) * PREPARE FFP UNIT(S)(Performed 09/21/2022) * PREPARE PLATELET PHERESIS UNIT(S)(Performed 09/21/2022) * PREPARE RBC LEUKOREDUCED UNIT(Performed 09/21/2022) * GLUCOSE - POINT OF CARE(Performed 09/20/2022) * GLUCOSE - POINT OF CARE(Performed 09/20/2022) * GLUCOSE - POINT OF CARE(Performed 09/20/2022) * DIFFERENTIAL MANUAL(Performed 09/20/2022) * CBC W AUTO DIFFERENTIAL(Performed 09/20/2022) * GLUCOSE - POINT OF CARE(Performed 09/20/2022) * PT-INR [facility](Performed 09/20/2022) * FIBRINOGEN ACTIVITY(Performed 09/20/2022) * PTT [facility](Performed 09/20/2022) * COMPREHENSIVE METABOLIC PANEL(Performed 09/20/2022) * PHOSPHORUS BLOOD(Performed 09/20/2022) * MAGNESIUM BLOOD(Performed 09/20/2022) * DIFFERENTIAL MANUAL(Performed 09/20/2022) * CBC W AUTO DIFFERENTIAL(Performed 09/20/2022) * GLUCOSE - POINT OF CARE(Performed 09/20/2022) * GLUCOSE - POINT OF CARE(Performed 09/19/2022) * DIFFERENTIAL MANUAL(Performed 09/19/2022) * CBC W AUTO DIFFERENTIAL(Performed 09/19/2022) * XR ABDOMEN KUB PORTABLE(Performed 09/19/2022) Performed for Upper GI bleed * GLUCOSE - POINT OF CARE(Performed 09/19/2022) * OK ED EGD FLEX TRANSORAL DX(Performed 09/19/2022) Performed for Upper GI bleed * EGD(Performed 09/19/2022) * DIFFERENTIAL MANUAL(Performed 09/19/2022) * CBC W AUTO DIFFERENTIAL(Performed 09/19/2022) * GLUCOSE - POINT OF CARE(Performed 09/19/2022) * DIFFERENTIAL MANUAL(Performed 09/19/2022) * CBC W AUTO DIFFERENTIAL(Performed 09/19/2022) * GLUCOSE - POINT OF CARE(Performed 09/19/2022) * TRANSFUSE RED BLOOD CELL LEUKOREDUCED UNIT(S)(Performed 09/19/2022) * PREPARE RBC LEUKOREDUCED UNIT(Performed 09/19/2022) * XR CHEST 1VW PORTABLE(Performed 09/19/2022) Performed for Acute respiratory failure with hypoxia (HCC) * URINALYSIS REFLEX TO MICROSCOPIC NO CULTURE(Performed 09/19/2022) * GLUCOSE - POINT OF CARE(Performed 09/19/2022) * DIFFERENTIAL MANUAL(Performed 09/19/2022) * PT-INR [facility](Performed 09/19/2022) * FIBRINOGEN ACTIVITY(Performed 09/19/2022) * CBC W AUTO DIFFERENTIAL(Performed 09/19/2022) * PTT [facility](Performed 09/19/2022) * COMPREHENSIVE METABOLIC PANEL(Performed 09/19/2022) * PHOSPHORUS BLOOD(Performed 09/19/2022) * MAGNESIUM BLOOD(Performed 09/19/2022) * GLUCOSE - POINT OF CARE(Performed 09/19/2022) * DIFFERENTIAL MANUAL(Performed 09/18/2022) * CBC W AUTO DIFFERENTIAL(Performed 09/18/2022) * GLUCOSE - POINT OF CARE(Performed 09/18/2022) * GLUCOSE - POINT OF CARE(Performed 09/18/2022) * GLUCOSE - POINT OF CARE(Performed 09/18/2022) * PTT [facility](Performed 09/18/2022) * PT-INR [facility](Performed 09/18/2022) * FIBRINOGEN ACTIVITY(Performed 09/18/2022) * COMPREHENSIVE METABOLIC PANEL(Performed 09/18/2022) * CBC W AUTO DIFFERENTIAL(Performed 09/18/2022) * TEG 6 GLOBAL HEMOSTASIS W/ LYSIS(Performed 09/18/2022) * XR ABDOMEN KUB PORTABLE(Performed 09/18/2022) Performed for Upper GI bleed * PTT [facility](Performed 09/18/2022) * PT-INR [facility](Performed 09/18/2022) * FIBRINOGEN ACTIVITY(Performed 09/18/2022) * COMPREHENSIVE METABOLIC PANEL(Performed 09/18/2022) * CBC W AUTO DIFFERENTIAL(Performed 09/18/2022) * GLUCOSE - POINT OF CARE(Performed 09/18/2022) * BLOOD GASES ART + COOX PANEL(Performed 09/18/2022) * PTT [facility](Performed 09/18/2022) * PT-INR [facility](Performed 09/18/2022) * LACTIC ACID BLOOD(Performed 09/18/2022) * FIBRINOGEN ACTIVITY(Performed 09/18/2022) * COMPREHENSIVE METABOLIC PANEL(Performed 09/18/2022) * PHOSPHORUS BLOOD(Performed 09/18/2022) * MAGNESIUM BLOOD(Performed 09/18/2022) * CBC W AUTO DIFFERENTIAL(Performed 09/18/2022) * GLUCOSE - POINT OF CARE(Performed 09/18/2022) * TRANSFUSE RED BLOOD CELL LEUKOREDUCED UNIT(S)(Performed 09/18/2022) * PREPARE RBC LEUKOREDUCED UNIT(Performed 09/18/2022) * TRANSFUSE RED BLOOD CELL LEUKOREDUCED UNIT(S)(Performed 09/18/2022) * LACTIC ACID BLOOD(Performed 09/18/2022) * GLUCOSE - POINT OF CARE(Performed 09/17/2022) * BLOOD GASES ART + COOX PANEL(Performed 09/17/2022) * TYPE + SCREEN PANEL(Performed 09/17/2022) * FIBRINOGEN ACTIVITY(Performed 09/17/2022) * AMMONIA(Performed 09/17/2022) * TSH REFLEX FREE T4(Performed 09/17/2022) * LIPASE BLOOD(Performed 09/17/2022) * PTT [facility](Performed 09/17/2022) * PT-INR [facility](Performed 09/17/2022) * PHOSPHORUS BLOOD(Performed 09/17/2022) * MAGNESIUM BLOOD(Performed 09/17/2022) * COMPREHENSIVE METABOLIC PANEL(Performed 09/17/2022) * CBC W AUTO DIFFERENTIAL(Performed 09/17/2022) * TEG 6 GLOBAL HEMOSTASIS W/ LYSIS(Performed 09/17/2022) * CALCIUM IONIZED WHOLE BLOOD(Performed 09/17/2022) * BLOOD GASES ART + COOX PANEL(Performed 09/17/2022) * XR CHEST 1VW PORTABLE(Performed 09/17/2022) Performed for Decompensated hepatic cirrhosis (HCC) * US TIPS W ABDOMEN LIMITED(Performed 09/11/2022) Performed for 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) * PT-INR(Performed 03/26/2022) Performed for 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) * BASIC METABOLIC PANEL (CALCIUM TOTAL)(Performed 03/26/2022) Performed for 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) * HEPATIC FUNCTION PANEL(Performed 03/26/2022) Performed for 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) * CBC W/O DIFFERENTIAL(Performed 03/26/2022) Performed for 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) * ALPHA FETOPROTEIN BLOOD TUMOR MARKER(Performed 03/26/2022) Performed for 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) * XR KNEE RIGHT 4VW OR MORE(Performed 12/10/2021) Performed for Right knee pain, unspecified chronicity * US TIPS W ABDOMEN LIMITED(Performed 12/10/2021) Performed for 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), S/P TIPS (transjugular intrahepatic portosystemic shunt) * RNA POLYMERASE III ANTIBODY IGG(Performed 06/12/2021) * CENTROMERE B ANTIBODIES(Performed 06/12/2021) * SCLERODERMA 70 (SCL) ANTIBODY(Performed 06/12/2021) * C-REACTIVE PROTEIN(Performed 06/12/2021) * CBC W AUTO DIFFERENTIAL(Performed 06/12/2021) * ERYTHROCYTE SEDIMENTATION RATE(Performed 06/12/2021) * COMPREHENSIVE METABOLIC PANEL(Performed 06/12/2021) * US TIPS W ABDOMEN LIMITED(Performed 06/08/2021) Performed for 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) * PT-INR [facility](Performed 05/29/2021) Performed for Nonalcoholic steatohepatitis (SANCHEZ), 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), S/P TIPS (transjugular intrahepatic portosystemic shunt) * HEMOGLOBIN A1C(Performed 05/29/2021) Performed for Nonalcoholic steatohepatitis (SANCHEZ), 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), S/P TIPS (transjugular intrahepatic portosystemic shunt) * HEPATIC FUNCTION PANEL(Performed 05/29/2021) Performed for Nonalcoholic steatohepatitis (SANCHEZ), 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), S/P TIPS (transjugular intrahepatic portosystemic shunt) * BASIC METABOLIC PANEL (CALCIUM TOTAL)(Performed 05/29/2021) Performed for Nonalcoholic steatohepatitis (SANCHEZ), 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), S/P TIPS (transjugular intrahepatic portosystemic shunt) * CBC W/O DIFFERENTIAL(Performed 05/29/2021) Performed for Nonalcoholic steatohepatitis (SANCHEZ), 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), S/P TIPS (transjugular intrahepatic portosystemic shunt) * ALPHA FETOPROTEIN BLOOD TUMOR MARKER(Performed 05/29/2021) Performed for Nonalcoholic steatohepatitis (SANCHEZ), 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), S/P TIPS (transjugular intrahepatic portosystemic shunt) * TSH REFLEX FREE T4(Performed 05/29/2021) Performed for Nonalcoholic steatohepatitis (SANCHEZ), 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), S/P TIPS (transjugular intrahepatic portosystemic shunt) * COMPREHENSIVE METABOLIC PANEL(Performed 09/26/2020) Performed for 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) * CBC W/O DIFFERENTIAL(Performed 09/26/2020) Performed for 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) * ALPHA FETOPROTEIN BLOOD TUMOR MARKER(Performed 09/26/2020) Performed for 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) * PT-INR(Performed 09/26/2020) Performed for 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) * SS-A (SJOGREN'S) 52+60 ANTIBODIES(Performed 07/10/2020) Performed for Arthralgia, unspecified joint, Positive AFSHIN (antinuclear antibody), Other specified abnormal immunological findings in serum * COMPLEMENT ACTIVITY TOTAL (CH50)(Performed 07/10/2020) Performed for Arthralgia, unspecified joint, Positive AFSHIN (antinuclear antibody), Other specified abnormal immunological findings in serum * ALDOLASE(Performed 07/10/2020) Performed for Arthralgia, unspecified joint, Positive AFSHIN (antinuclear antibody), Other specified abnormal immunological findings in serum * LDH BLOOD(Performed 07/10/2020) Performed for Arthralgia, unspecified joint, Positive AFSHIN (antinuclear antibody), Other specified abnormal immunological findings in serum * CK BLOOD(Performed 07/10/2020) Performed for Arthralgia, unspecified joint, Positive AFSHIN (antinuclear antibody), Other specified abnormal immunological findings in serum * MITOCHONDRIAL ANTIBODY SCREEN(Performed 07/10/2020) Performed for Arthralgia, unspecified joint, Positive AFSHIN (antinuclear antibody), Other specified abnormal immunological findings in serum * RHEUMATOID FACTOR BLOOD QUANTITATIVE(Performed 07/10/2020) Performed for Arthralgia, unspecified joint, Positive AFSHIN (antinuclear antibody), Other specified abnormal immunological findings in serum * VELEZ (SM) ANTIBODY TYLOR(Performed 07/10/2020) Performed for Arthralgia, unspecified joint, Positive AFSHIN (antinuclear antibody), Other specified abnormal immunological findings in serum * IGM BLOOD(Performed 07/10/2020) Performed for Arthralgia, unspecified joint, Positive AFSHIN (antinuclear antibody), Other specified abnormal immunological findings in serum * IGG BLOOD(Performed 07/10/2020) Performed for Arthralgia, unspecified joint, Positive AFSHIN (antinuclear antibody), Other specified abnormal immunological findings in serum * IGA BLOOD(Performed 07/10/2020) Performed for Arthralgia, unspecified joint, Positive AFSHIN (antinuclear antibody), Other specified abnormal immunological findings in serum * DNA ANTIBODY DOUBLE STRANDED(Performed 07/10/2020) Performed for Arthralgia, unspecified joint, Positive AFSHIN (antinuclear antibody), Other specified abnormal immunological findings in serum * HISTONE ANTIBODY(Performed 07/10/2020) Performed for Arthralgia, unspecified joint, Positive AFSHIN (antinuclear antibody), Other specified abnormal immunological findings in serum * SCLERODERMA 70 (SCL) ANTIBODY(Performed 07/10/2020) Performed for Arthralgia, unspecified joint, Positive AFSHIN (antinuclear antibody), Other specified abnormal immunological findings in serum * RNA POLYMERASE III ANTIBODY IGG(Performed 07/10/2020) Performed for Arthralgia, unspecified joint, Positive AFSHIN (antinuclear antibody), Other specified abnormal immunological findings in serum * PM/SCL-100 ANTIBODY IGG(Performed 07/10/2020) Performed for Arthralgia, unspecified joint, Positive AFSHIN (antinuclear antibody), Other specified abnormal immunological findings in serum * CENTROMERE B ANTIBODIES(Performed 07/10/2020) Performed for Arthralgia, unspecified joint, Positive AFSHIN (antinuclear antibody), Other specified abnormal immunological findings in serum * SS-B (SJOGREN'S) ANTIBODY(Performed 07/10/2020) Performed for Arthralgia, unspecified joint, Positive AFSHIN (antinuclear antibody), Other specified abnormal immunological findings in serum * CYCLIC CITRUL PEPTIDE ANTIBODY IGG/IGA (CCP)(Performed 07/10/2020) Performed for Arthralgia, unspecified joint, Positive AFSHIN (antinuclear antibody), Other specified abnormal immunological findings in serum * COMPLEMENT C4(Performed 07/10/2020) Performed for Arthralgia, unspecified joint, Positive AFSHIN (antinuclear antibody), Other specified abnormal immunological findings in serum * COMPLEMENT C3(Performed 07/10/2020) Performed for Arthralgia, unspecified joint, Positive AFSHIN (antinuclear antibody), Other specified abnormal immunological findings in serum * CHROMATIN ANTIBODY(Performed 07/10/2020) Performed for Arthralgia, unspecified joint, Positive AFSHIN (antinuclear antibody), Other specified abnormal immunological findings in serum * AFSHIN BLOOD SCREEN W/REFLEX TITER(Performed 07/10/2020) Performed for Arthralgia, unspecified joint, Positive AFSHIN (antinuclear antibody), Other specified abnormal immunological findings in serum * URINALYSIS W/MICROSCOPIC NO CULTURE(Performed 07/10/2020) Performed for Arthralgia, unspecified joint, Positive AFSHIN (antinuclear antibody), Other specified abnormal immunological findings in serum * C-REACTIVE PROTEIN(Performed 07/10/2020) Performed for Arthralgia, unspecified joint, Positive AFSHIN (antinuclear antibody), Other specified abnormal immunological findings in serum * ERYTHROCYTE SEDIMENTATION RATE(Performed 07/10/2020) Performed for Arthralgia, unspecified joint, Positive AFSHIN (antinuclear antibody), Other specified abnormal immunological findings in serum * URIC ACID BLOOD(Performed 07/10/2020) Performed for Arthralgia, unspecified joint, Positive AFSHIN (antinuclear antibody), Other specified abnormal immunological findings in serum * SMOOTH MUSCLE ANTIBODY W REFLEX TITER(Performed 07/10/2020) Performed for Arthralgia, unspecified joint, Positive AFSHIN (antinuclear antibody), Other specified abnormal immunological findings in serum * XR ELBOW RIGHT 2VW(Performed 07/10/2020) Performed for Arthralgia, unspecified joint, Positive AFSHIN (antinuclear antibody), Other specified abnormal immunological findings in serum * XR ELBOW LEFT 2VW(Performed 07/10/2020) Performed for Arthralgia, unspecified joint, Positive AFSHIN (antinuclear antibody), Other specified abnormal immunological findings in serum * XR FOOT RIGHT 2VW(Performed 07/10/2020) Performed for Arthralgia, unspecified joint, Positive AFSHIN (antinuclear antibody), Other specified abnormal immunological findings in serum * XR FOOT LEFT 2VW(Performed 07/10/2020) Performed for Arthralgia, unspecified joint, Positive AFSHIN (antinuclear antibody), Other specified abnormal immunological findings in serum * XR HAND LEFT 2VW(Performed 07/10/2020) Performed for Arthralgia, unspecified joint, Positive AFSHIN (antinuclear antibody), Other specified abnormal immunological findings in serum * XR HAND RIGHT 2VW(Performed 07/10/2020) Performed for Arthralgia, unspecified joint, Positive AFSHIN (antinuclear antibody), Other specified abnormal immunological findings in serum * US TIPS W ABDOMEN LIMITED(Performed 06/28/2020) Performed for 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) * PT-INR [facility](Performed 06/19/2020) Performed for 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) * COMPREHENSIVE METABOLIC PANEL(Performed 06/19/2020) Performed for 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) * CBC W/O DIFFERENTIAL(Performed 06/19/2020) Performed for 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) * ALPHA FETOPROTEIN BLOOD TUMOR MARKER(Performed 06/19/2020) Performed for 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) * PT-INR(Performed 10/08/2019) * ALPHA FETOPROTEIN BLOOD TUMOR MARKER(Performed 10/08/2019) * CBC W/O DIFFERENTIAL(Performed 10/08/2019) * COMPREHENSIVE METABOLIC PANEL(Performed 10/08/2019) * CT ABDOMEN MULTI PHASE W CONT(Performed 08/17/2019) Performed for Nonalcoholic steatohepatitis (SANCHEZ), Other ascites * CREATININE - POCT INTERFACED(Performed 08/17/2019) * CT ABDOMEN PELVIS W CONTRAST(Performed 06/23/2019) Performed for Abdominal pain, generalized * RBC MORPHOLOGY(Performed 06/23/2019) * TROPONIN I(Performed 06/23/2019) * PT-INR [facility](Performed 06/23/2019) * MAGNESIUM BLOOD(Performed 06/23/2019) * LIPASE BLOOD(Performed 06/23/2019) * LACTIC ACID BLOOD(Performed 06/23/2019) * COMPREHENSIVE METABOLIC PANEL(Performed 06/23/2019) * CBC W AUTO DIFFERENTIAL(Performed 06/23/2019) * PARACENTESIS ABDOMEN (PERCUTANEOUS)(Performed 12/24/2018) Performed for Other ascites * CT ABDOMEN MULTI PHASE W CONT(Performed 10/15/2018) Performed for 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) * PT-INR(Performed 10/13/2018) Performed for 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) * COMPREHENSIVE METABOLIC PANEL(Performed 10/13/2018) Performed for 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) * CBC W AUTO DIFFERENTIAL(Performed 10/13/2018) Performed for 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) * CBC W DIFF (EXTERNAL RESULT ENTRY)(Performed 10/13/2018) * PT INR (EXTERNAL RESULT ENTRY)(Performed 10/13/2018) * COMP MET PANEL (EXTERNAL RESULT ENTRY)(Performed 10/13/2018) * PT-INR(Performed 08/19/2018) * COLONOSCOPY DIAGNOSTIC(Performed 07/03/2018) Performed for Pre-transplant evaluation for liver transplant, Type 2 diabetes mellitus without complication, without long-term current use of insulin (HCC), SANCHEZ (nonalcoholic steatohepatitis) * ENDOSCOPY, COLON, SCREENING(Performed 07/03/2018) * GLUCOSE - POINT OF CARE(Performed 07/03/2018) * PT-INR(Performed 06/09/2018) Performed for S/P TIPS (transjugular intrahepatic portosystemic shunt), PVT (portal vein thrombosis) * PT INR (EXTERNAL RESULT ENTRY)(Performed 06/09/2018) * PFT-LAB(Performed 05/12/2018) Performed for Pre-transplant evaluation for liver transplant, Type 2 diabetes mellitus without complication, without long-term current use of insulin (HCC), SANCHEZ (nonalcoholic steatohepatitis), S/P TIPS (transjugular intrahepatic portosystemic shunt), Dyspnea on exertion, Encounter for pre-transplant evaluation for chronic liver disease, ALAYNA (obstructive sleep apnea) * ESOPHAGOGASTRODUODENOSCOPY (EGD) DIAGNOSTIC(Performed 05/08/2018) Performed for Pre-transplant evaluation for liver transplant, Type 2 diabetes mellitus without complication, without long-term current use of insulin (HCC) * GLUCOSE - POINT OF CARE(Performed 05/08/2018) * EGD(Performed 05/08/2018) Performed for Pre-transplant evaluation for liver transplant, Type 2 diabetes mellitus without complication, without long-term current use of insulin (HCC), SANCHEZ (nonalcoholic steatohepatitis), S/P TIPS (transjugular intrahepatic portosystemic shunt), Dyspnea on exertion, Encounter for pre-transplant evaluation for chronic liver disease, ALAYNA (obstructive sleep apnea) * ECHO COMPLETE(Performed 05/07/2018) Performed for Pre-transplant evaluation for liver transplant, Type 2 diabetes mellitus without complication, without long-term current use of insulin (HCC), SANCHEZ (nonalcoholic steatohepatitis), S/P TIPS (transjugular intrahepatic portosystemic shunt), Dyspnea on exertion, Encounter for pre-transplant evaluation for chronic liver disease, ALAYNA (obstructive sleep apnea) * US TIPS W ABDOMEN LIMITED(Performed 05/07/2018) Performed for Alcoholic cirrhosis of liver with ascites , S/P TIPS (transjugular intrahepatic portosystemic shunt) * QUANTIFERON-TB GOLD PLUS 4-TUBE(Performed 05/07/2018) Performed for Encounter for pre-transplant evaluation for chronic liver disease * CANNABINOID SCREEN BLOOD(Performed 05/07/2018) Performed for Encounter for pre-transplant evaluation for chronic liver disease * HIV-1 HIV-2 ANTIGEN/ANTIBODY(Performed 05/07/2018) Performed for Pre-transplant evaluation for liver transplant * IRON BLOOD(Performed 05/07/2018) Performed for Pre-transplant evaluation for liver transplant * FERRITIN(Performed 05/07/2018) Performed for Pre-transplant evaluation for liver transplant * COMPREHENSIVE METABOLIC PANEL(Performed 05/07/2018) Performed for Pre-transplant evaluation for liver transplant * CBC W AUTO DIFFERENTIAL(Performed 05/07/2018) Performed for Pre-transplant evaluation for liver transplant * CHARMAINE-WHALEY VIRUS ANTIBODY TO VCA IGG(Performed 05/07/2018) Performed for Pre-transplant evaluation for liver transplant * ALPHA FETOPROTEIN BLOOD TUMOR MARKER(Performed 05/07/2018) Performed for Pre-transplant evaluation for liver transplant * CYTOMEGALOVIRUS ANTIBODY IGG BLOOD(Performed 05/07/2018) Performed for Pre-transplant evaluation for liver transplant * PT-INR [facility](Performed 05/07/2018) Performed for Pre-transplant evaluation for liver transplant * HEPATITIS C ANTIBODY(Performed 05/07/2018) Performed for Pre-transplant evaluation for liver transplant * HEPATITIS B SURFACE ANTIBODY(Performed 05/07/2018) Performed for Pre-transplant evaluation for liver transplant * HEPATITIS B CORE ANTIBODY TOTAL(Performed 05/07/2018) Performed for Pre-transplant evaluation for liver transplant * HEPATITIS B SURFACE ANTIGEN W RFLX CONFIRMATION(Performed 05/07/2018) Performed for Pre-transplant evaluation for liver transplant * LIPID PROFILE(Performed 05/07/2018) Performed for Pre-transplant evaluation for liver transplant * PTH INTACT W/O CALCIUM(Performed 05/07/2018) Performed for Pre-transplant evaluation for liver transplant * PHOSPHORUS BLOOD(Performed 05/07/2018) Performed for Pre-transplant evaluation for liver transplant * XR PANOREX(Performed 05/07/2018) Performed for Pre-transplant evaluation for liver transplant, Type 2 diabetes mellitus without complication, without long-term current use of insulin (HCC), SANCHEZ (nonalcoholic steatohepatitis), S/P TIPS (transjugular intrahepatic portosystemic shunt), Dyspnea on exertion, Encounter for pre-transplant evaluation for chronic liver disease, ALAYNA (obstructive sleep apnea) * XR CHEST 2VW(Performed 05/07/2018) Performed for Pre-transplant evaluation for liver transplant, Type 2 diabetes mellitus without complication, without long-term current use of insulin (HCC), SANCHEZ (nonalcoholic steatohepatitis), S/P TIPS (transjugular intrahepatic portosystemic shunt), Dyspnea on exertion, Encounter for pre-transplant evaluation for chronic liver disease, ALAYNA (obstructive sleep apnea) * CT LIVER 3 PHASE W PELVIS(Performed 05/07/2018) Performed for Pre-transplant evaluation for liver transplant, Type 2 diabetes mellitus without complication, without long-term current use of insulin (HCC), SANCHEZ (nonalcoholic steatohepatitis), S/P TIPS (transjugular intrahepatic portosystemic shunt), Dyspnea on exertion, Encounter for pre-transplant evaluation for chronic liver disease, ALAYNA (obstructive sleep apnea) * SYPHILIS ANTIBODY CASCADING REFLEX(Performed 04/30/2018) Performed for Pre-transplant evaluation for liver transplant, Type 2 diabetes mellitus without complication, without long-term current use of insulin (HCC), SANCHEZ (nonalcoholic steatohepatitis), S/P TIPS (transjugular intrahepatic portosystemic shunt), Dyspnea on exertion, Encounter for pre-transplant evaluation for chronic liver disease, ALAYNA (obstructive sleep apnea), Fibromyalgia, Alcoholic cirrhosis of liver with ascites (HCC), Splenic laceration, initial encounter * URINE DRUG SCREEN IMMUNOASSAY(Performed 04/30/2018) Performed for Pre-transplant evaluation for liver transplant, Type 2 diabetes mellitus without complication, without long-term current use of insulin (HCC), SANCHEZ (nonalcoholic steatohepatitis), S/P TIPS (transjugular intrahepatic portosystemic shunt), Dyspnea on exertion, Encounter for pre-transplant evaluation for chronic liver disease, ALAYNA (obstructive sleep apnea) * VARICELLA ZOSTER ANTIBODY IGG(Performed 04/30/2018) Performed for Pre-transplant evaluation for liver transplant, Type 2 diabetes mellitus without complication, without long-term current use of insulin (HCC), SANCHEZ (nonalcoholic steatohepatitis), S/P TIPS (transjugular intrahepatic portosystemic shunt), Dyspnea on exertion, Encounter for pre-transplant evaluation for chronic liver disease, ALAYNA (obstructive sleep apnea) * RUBELLA ANTIBODY IGG(Performed 04/30/2018) Performed for Pre-transplant evaluation for liver transplant, Type 2 diabetes mellitus without complication, without long-term current use of insulin (HCC), SANCHEZ (nonalcoholic steatohepatitis), S/P TIPS (transjugular intrahepatic portosystemic shunt), Dyspnea on exertion, Encounter for pre-transplant evaluation for chronic liver disease, ALAYNA (obstructive sleep apnea) * MUMPS ANTIBODY IGG(Performed 04/30/2018) Performed for Pre-transplant evaluation for liver transplant, Type 2 diabetes mellitus without complication, without long-term current use of insulin (HCC), SANCHEZ (nonalcoholic steatohepatitis), S/P TIPS (transjugular intrahepatic portosystemic shunt), Dyspnea on exertion, Encounter for pre-transplant evaluation for chronic liver disease, ALAYNA (obstructive sleep apnea) * RUBEOLA ANTIBODY IGG(Performed 04/30/2018) Performed for Pre-transplant evaluation for liver transplant, Type 2 diabetes mellitus without complication, without long-term current use of insulin (HCC), SANCHEZ (nonalcoholic steatohepatitis), S/P TIPS (transjugular intrahepatic portosystemic shunt), Dyspnea on exertion, Encounter for pre-transplant evaluation for chronic liver disease, ALAYNA (obstructive sleep apnea) * [id number] BLOOD PHENOTYPING PANEL(Performed 04/30/2018) Performed for Pre-transplant evaluation for liver transplant, Type 2 diabetes mellitus without complication, without long-term current use of insulin (HCC), SANCHEZ (nonalcoholic steatohepatitis), S/P TIPS (transjugular intrahepatic portosystemic shunt), Dyspnea on exertion, Encounter for pre-transplant evaluation for chronic liver disease, ALAYNA (obstructive sleep apnea) * NICOTINE + METABOLITES BLOOD(Performed 04/30/2018) Performed for Pre-transplant evaluation for liver transplant, Type 2 diabetes mellitus without complication, without long-term current use of insulin (HCC), SANCHEZ (nonalcoholic steatohepatitis), S/P TIPS (transjugular intrahepatic portosystemic shunt), Dyspnea on exertion, Encounter for pre-transplant evaluation for chronic liver disease, ALAYNA (obstructive sleep apnea) * ALCOHOL ETHYL BLOOD(Performed 04/30/2018) Performed for Pre-transplant evaluation for liver transplant, Type 2 diabetes mellitus without complication, without long-term current use of insulin (HCC), SANCHEZ (nonalcoholic steatohepatitis), S/P TIPS (transjugular intrahepatic portosystemic shunt), Dyspnea on exertion, Encounter for pre-transplant evaluation for chronic liver disease, ALAYNA (obstructive sleep apnea) * URINALYSIS W/MICROSCOPIC NO CULTURE(Performed 04/30/2018) Performed for Pre-transplant evaluation for liver transplant, Type 2 diabetes mellitus without complication, without long-term current use of insulin (HCC), SANCHEZ (nonalcoholic steatohepatitis), S/P TIPS (transjugular intrahepatic portosystemic shunt), Dyspnea on exertion, Encounter for pre-transplant evaluation for chronic liver disease, ALAYNA (obstructive sleep apnea) * HEMOGLOBIN A1C(Performed 04/30/2018) Performed for Pre-transplant evaluation for liver transplant, Type 2 diabetes mellitus without complication, without long-term current use of insulin (HCC), SANCHEZ (nonalcoholic steatohepatitis), S/P TIPS (transjugular intrahepatic portosystemic shunt), Dyspnea on exertion, Encounter for pre-transplant evaluation for chronic liver disease, ALAYNA (obstructive sleep apnea) * PT-INR [facility](Performed 04/30/2018) Performed for Alcoholic cirrhosis of liver with ascites (HCC) * CCL CARDIAC CATH LEFT(Performed 04/29/2018) Performed for Pre-transplant evaluation for liver transplant, Type 2 diabetes mellitus without complication, without long-term current use of insulin (HCC), SANCHEZ (nonalcoholic steatohepatitis), S/P TIPS (transjugular intrahepatic portosystemic shunt), Dyspnea on exertion, Encounter for pre-transplant evaluation for chronic liver disease, ALAYNA (obstructive sleep apnea) * CARDIAC EKG ORDER(Performed 04/29/2018) * PT-INR [facility](Performed 04/29/2018) Performed for 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) * CBC W AUTO DIFFERENTIAL(Performed 04/29/2018) Performed for 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) * BASIC METABOLIC PANEL (CALCIUM TOTAL)(Performed 04/29/2018) Performed for 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) * APHERESIS/TRANSFUSION ORDER(Performed 03/30/2018) * CARDIAC EKG ORDER(Performed 03/30/2018) * GLUCOSE - POINT OF CARE(Performed 03/27/2018) * PHOSPHORUS BLOOD(Performed 03/27/2018) * MAGNESIUM BLOOD(Performed 03/27/2018) * CBC W/O DIFFERENTIAL(Performed 03/27/2018) * PT-INR [facility](Performed 03/27/2018) * COMPREHENSIVE METABOLIC PANEL(Performed 03/27/2018) * GLUCOSE - POINT OF CARE(Performed 03/26/2018) * GLUCOSE - POINT OF CARE(Performed 03/26/2018) * GLUCOSE - POINT OF CARE(Performed 03/26/2018) * GLUCOSE - POINT OF CARE(Performed 03/26/2018) * PHOSPHORUS BLOOD(Performed 03/26/2018) * MAGNESIUM BLOOD(Performed 03/26/2018) * CBC W/O DIFFERENTIAL(Performed 03/26/2018) * PT-INR [facility](Performed 03/26/2018) * COMPREHENSIVE METABOLIC PANEL(Performed 03/26/2018) * GLUCOSE - POINT OF CARE(Performed 03/25/2018) * GLUCOSE - POINT OF CARE(Performed 03/25/2018) * GLUCOSE - POINT OF CARE(Performed 03/25/2018) * GLUCOSE - POINT OF CARE(Performed 03/25/2018) * PHOSPHORUS BLOOD(Performed 03/25/2018) * MAGNESIUM BLOOD(Performed 03/25/2018) * CBC W/O DIFFERENTIAL(Performed 03/25/2018) * PT-INR [facility](Performed 03/25/2018) * COMPREHENSIVE METABOLIC PANEL(Performed 03/25/2018) * GLUCOSE - POINT OF CARE(Performed 03/24/2018) * GLUCOSE - POINT OF CARE(Performed 03/24/2018) * GLUCOSE - POINT OF CARE(Performed 03/24/2018) * XR ABDOMEN KUB PORTABLE(Performed 03/24/2018) Performed for Ileus (HCC) * GLUCOSE - POINT OF CARE(Performed 03/24/2018) * PHOSPHORUS BLOOD(Performed 03/24/2018) * MAGNESIUM BLOOD(Performed 03/24/2018) * CBC W/O DIFFERENTIAL(Performed 03/24/2018) * PT-INR [facility](Performed 03/24/2018) * COMPREHENSIVE METABOLIC PANEL(Performed 03/24/2018) * GLUCOSE - POINT OF CARE(Performed 03/23/2018) * GLUCOSE - POINT OF CARE(Performed 03/23/2018) * GLUCOSE - POINT OF CARE(Performed 03/23/2018) * XR ABDOMEN KUB PORTABLE(Performed 03/23/2018) Performed for 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) * GLUCOSE - POINT OF CARE(Performed 03/23/2018) * PHOSPHORUS BLOOD(Performed 03/23/2018) * MAGNESIUM BLOOD(Performed 03/23/2018) * CBC W/O DIFFERENTIAL(Performed 03/23/2018) * PT-INR [facility](Performed 03/23/2018) * COMPREHENSIVE METABOLIC PANEL(Performed 03/23/2018) * GLUCOSE - POINT OF CARE(Performed 03/22/2018) * GLUCOSE - POINT OF CARE(Performed 03/22/2018) * GLUCOSE - POINT OF CARE(Performed 03/22/2018) * PT-INR [facility](Performed 03/22/2018) * COMPREHENSIVE METABOLIC PANEL(Performed 03/22/2018) * PHOSPHORUS BLOOD(Performed 03/22/2018) * MAGNESIUM BLOOD(Performed 03/22/2018) * CBC W/O DIFFERENTIAL(Performed 03/22/2018) * GLUCOSE - POINT OF CARE(Performed 03/21/2018) * GLUCOSE - POINT OF CARE(Performed 03/21/2018) * GLUCOSE - POINT OF CARE(Performed 03/21/2018) * GLUCOSE - POINT OF CARE(Performed 03/21/2018) * PHOSPHORUS BLOOD(Performed 03/21/2018) * MAGNESIUM BLOOD(Performed 03/21/2018) * CBC W/O DIFFERENTIAL(Performed 03/21/2018) * PT-INR [facility](Performed 03/21/2018) * COMPREHENSIVE METABOLIC PANEL(Performed 03/21/2018) * GLUCOSE - POINT OF CARE(Performed 03/20/2018) * GLUCOSE - POINT OF CARE(Performed 03/20/2018) * GLUCOSE - POINT OF CARE(Performed 03/20/2018) * GLUCOSE - POINT OF CARE(Performed 03/20/2018) * GLUCOSE - POINT OF CARE(Performed 03/20/2018) * PT-INR [facility](Performed 03/20/2018) * PHOSPHORUS BLOOD(Performed 03/20/2018) * MAGNESIUM BLOOD(Performed 03/20/2018) * CBC W/O DIFFERENTIAL(Performed 03/20/2018) * COMPREHENSIVE METABOLIC PANEL(Performed 03/20/2018) * GLUCOSE - POINT OF CARE(Performed 03/19/2018) * GLUCOSE - POINT OF CARE(Performed 03/19/2018) * GLUCOSE - POINT OF CARE(Performed 03/19/2018) * IR EMBOLIZATION TRANSCATH THPY(Performed 03/19/2018) Performed for Splenic artery aneurysm (HCC) * GLUCOSE - POINT OF CARE(Performed 03/19/2018) * GLUCOSE - POINT OF CARE(Performed 03/19/2018) * PHOSPHORUS BLOOD(Performed 03/19/2018) * MAGNESIUM BLOOD(Performed 03/19/2018) * CBC W/O DIFFERENTIAL(Performed 03/19/2018) * PT-INR [facility](Performed 03/19/2018) * COMPREHENSIVE METABOLIC PANEL(Performed 03/19/2018) * GLUCOSE - POINT OF CARE(Performed 03/18/2018) * GLUCOSE - POINT OF CARE(Performed 03/18/2018) * ECHO COMPLETE W BUBBLE STUDY(Performed 03/18/2018) Performed for Diastolic heart failure, unspecified HF chronicity (HCC), 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) * PT-INR [facility](Performed 03/18/2018) * GLUCOSE - POINT OF CARE(Performed 03/18/2018) * CBC W/O DIFFERENTIAL(Performed 03/18/2018) * COMPREHENSIVE METABOLIC PANEL(Performed 03/18/2018) * OT EVAL AND TREAT(Performed 03/18/2018) * GLUCOSE - POINT OF CARE(Performed 03/18/2018) * GLUCOSE - POINT OF CARE(Performed 03/18/2018) * GLUCOSE - POINT OF CARE(Performed 03/17/2018) * GLUCOSE - POINT OF CARE(Performed 03/17/2018) * GLUCOSE - POINT OF CARE(Performed 03/17/2018) * CBC W/O DIFFERENTIAL(Performed 03/17/2018) * PT-INR [facility](Performed 03/17/2018) * COMPREHENSIVE METABOLIC PANEL(Performed 03/17/2018) * GLUCOSE - POINT OF CARE(Performed 03/17/2018) * EKG 12-LEAD(Performed 03/16/2018) Performed for Splenic laceration, initial encounter * GLUCOSE - POINT OF CARE(Performed 03/16/2018) * CBC W/O DIFFERENTIAL(Performed 03/16/2018) * GLUCOSE - POINT OF CARE(Performed 03/16/2018) * RBC MORPHOLOGY(Performed 03/16/2018) * PT-INR [facility](Performed 03/16/2018) * COMPREHENSIVE METABOLIC PANEL(Performed 03/16/2018) * CBC W AUTO DIFFERENTIAL(Performed 03/16/2018) * GLUCOSE - POINT OF CARE(Performed 03/16/2018) * CBC W/O DIFFERENTIAL(Performed 03/16/2018) * TRANSFUSE RED BLOOD CELL LEUKOREDUCED UNIT(S)(Performed 03/15/2018) * CBC W/O DIFFERENTIAL(Performed 03/15/2018) * GLUCOSE - POINT OF CARE(Performed 03/15/2018) * GLUCOSE - POINT OF CARE(Performed 03/15/2018) * CT ANGIO ABDOMEN PELVIS(Performed 03/15/2018) Performed for Splenic artery aneurysm (HCC) * PT-INR [facility](Performed 03/15/2018) * PTT [facility](Performed 03/15/2018) * PHOSPHORUS BLOOD(Performed 03/15/2018) * MAGNESIUM BLOOD(Performed 03/15/2018) * CBC W/O DIFFERENTIAL(Performed 03/15/2018) * GLUCOSE - POINT OF CARE(Performed 03/15/2018) * GLUCOSE - POINT OF CARE(Performed 03/15/2018) * CBC W/O DIFFERENTIAL(Performed 03/15/2018) * HEMOGLOBIN A1C(Performed 03/15/2018) * RBC MORPHOLOGY(Performed 03/15/2018) * PTT [facility](Performed 03/15/2018) * PT-INR [facility](Performed 03/15/2018) * CBC W AUTO DIFFERENTIAL(Performed 03/15/2018) * COMPREHENSIVE METABOLIC PANEL(Performed 03/15/2018) * PREPARE RBC LEUKOREDUCED UNIT(Performed 03/15/2018) * TYPE + SCREEN PANEL(Performed 03/15/2018) * CARDIAC EKG ORDER(Performed 03/11/2018) * CARDIAC EKG ORDER(Performed 03/04/2018) * PT-INR(Performed 03/04/2018) Performed for S/P TIPS (transjugular intrahepatic portosystemic shunt), PVT (portal vein thrombosis) * PARACENTESIS ABDOMEN (PERCUTANEOUS)(Performed 02/19/2018) Performed for Other ascites * RBC MORPHOLOGY(Performed 02/16/2018) Performed for S/P TIPS (transjugular intrahepatic portosystemic shunt), 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) * PT-INR [facility](Performed 02/16/2018) Performed for S/P TIPS (transjugular intrahepatic portosystemic shunt), 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) * COMPREHENSIVE METABOLIC PANEL(Performed 02/16/2018) Performed for S/P TIPS (transjugular intrahepatic portosystemic shunt), 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) * CBC W AUTO DIFFERENTIAL(Performed 02/16/2018) Performed for S/P TIPS (transjugular intrahepatic portosystemic shunt), 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) * CARDIAC EKG ORDER(Performed 02/02/2018) * GLUCOSE - POINT OF CARE(Performed 01/28/2018) * GLUCOSE - POINT OF CARE(Performed 01/28/2018) * RBC MORPHOLOGY(Performed 01/28/2018) * PT-INR [facility](Performed 01/28/2018) * MAGNESIUM BLOOD(Performed 01/28/2018) * CBC W AUTO DIFFERENTIAL(Performed 01/28/2018) * COMPREHENSIVE METABOLIC PANEL(Performed 01/28/2018) * GLUCOSE - POINT OF CARE(Performed 01/28/2018) * GLUCOSE - POINT OF CARE(Performed 01/27/2018) * BASIC METABOLIC PANEL (CALCIUM TOTAL)(Performed 01/27/2018) * MAGNESIUM BLOOD(Performed 01/27/2018) * GLUCOSE - POINT OF CARE(Performed 01/27/2018) * GLUCOSE - POINT OF CARE(Performed 01/27/2018) * GLUCOSE - POINT OF CARE(Performed 01/27/2018) * RBC MORPHOLOGY(Performed 01/27/2018) * HIV-1 HIV-2 ANTIGEN/ANTIBODY(Performed 01/27/2018) * PT-INR [facility](Performed 01/27/2018) * MAGNESIUM BLOOD(Performed 01/27/2018) * CBC W AUTO DIFFERENTIAL(Performed 01/27/2018) * COMPREHENSIVE METABOLIC PANEL(Performed 01/27/2018) * GLUCOSE - POINT OF CARE(Performed 01/27/2018) * BASIC METABOLIC PANEL (CALCIUM TOTAL)(Performed 01/26/2018) * MAGNESIUM BLOOD(Performed 01/26/2018) * GLUCOSE - POINT OF CARE(Performed 01/26/2018) * GLUCOSE - POINT OF CARE(Performed 01/26/2018) * HLA TYPING DNA LOW RESOLUTION DR,DQ(Performed 01/26/2018) * GLUCOSE - POINT OF CARE(Performed 01/26/2018) * GLUCOSE - POINT OF CARE(Performed 01/26/2018) * RBC MORPHOLOGY(Performed 01/26/2018) * PT-INR [facility](Performed 01/26/2018) * MAGNESIUM BLOOD(Performed 01/26/2018) * CBC W AUTO DIFFERENTIAL(Performed 01/26/2018) * COMPREHENSIVE METABOLIC PANEL(Performed 01/26/2018) * URINALYSIS NO MICROSCOPIC NO CULTURE(Performed 01/26/2018) * CULTURE URINE(Performed 01/26/2018) * GLUCOSE - POINT OF CARE(Performed 01/25/2018) * GLUCOSE - POINT OF CARE(Performed 01/25/2018) * BASIC METABOLIC PANEL (CALCIUM TOTAL)(Performed 01/25/2018) * MAGNESIUM BLOOD(Performed 01/25/2018) * GLUCOSE - POINT OF CARE(Performed 01/25/2018) * AMMONIA(Performed 01/25/2018) * CULTURE BLOOD(Performed 01/25/2018) * CULTURE BLOOD(Performed 01/25/2018) * XR CHEST 1VW PORTABLE(Performed 01/25/2018) Performed for SOB (shortness of breath) * GLUCOSE - POINT OF CARE(Performed 01/25/2018) * RBC MORPHOLOGY(Performed 01/25/2018) * PT-INR [facility](Performed 01/25/2018) * MAGNESIUM BLOOD(Performed 01/25/2018) * CBC W AUTO DIFFERENTIAL(Performed 01/25/2018) * COMPREHENSIVE METABOLIC PANEL(Performed 01/25/2018) * GLUCOSE - POINT OF CARE(Performed 01/25/2018) * EKG 12-LEAD(Performed 01/24/2018) Performed for Other ascites * GLUCOSE - POINT OF CARE(Performed 01/24/2018) * GLUCOSE - POINT OF CARE(Performed 01/24/2018) * BASIC METABOLIC PANEL (CALCIUM TOTAL)(Performed 01/24/2018) * MAGNESIUM BLOOD(Performed 01/24/2018) * GLUCOSE - POINT OF CARE(Performed 01/24/2018) * GLUCOSE - POINT OF CARE(Performed 01/24/2018) * RBC MORPHOLOGY(Performed 01/24/2018) * MAGNESIUM BLOOD(Performed 01/24/2018) * CBC W AUTO DIFFERENTIAL(Performed 01/24/2018) * COMPREHENSIVE METABOLIC PANEL(Performed 01/24/2018) * GLUCOSE - POINT OF CARE(Performed 01/24/2018) * GLUCOSE - POINT OF CARE(Performed 01/23/2018) * GLUCOSE - POINT OF CARE(Performed 01/23/2018) * MAGNESIUM BLOOD(Performed 01/23/2018) * BASIC METABOLIC PANEL (CALCIUM TOTAL)(Performed 01/23/2018) * BLOOD GASES ARTERIAL(Performed 01/23/2018) * GLUCOSE - POINT OF CARE(Performed 01/23/2018) * FOLATE(Performed 01/23/2018) * VITAMIN B12(Performed 01/23/2018) * RBC MORPHOLOGY(Performed 01/23/2018) * MAGNESIUM BLOOD(Performed 01/23/2018) * CBC W AUTO DIFFERENTIAL(Performed 01/23/2018) * COMPREHENSIVE METABOLIC PANEL(Performed 01/23/2018) * TSH(Performed 01/23/2018) * GLUCOSE - POINT OF CARE(Performed 01/23/2018) * GLUCOSE - POINT OF CARE(Performed 01/23/2018) * GLUCOSE - POINT OF CARE(Performed 01/22/2018) * GLUCOSE - POINT OF CARE(Performed 01/22/2018) * EKG 12-LEAD(Performed 01/22/2018) Performed for SOB (shortness of breath) * RBC MORPHOLOGY(Performed 01/22/2018) * B-TYPE NATRIURETIC PEPTIDE(Performed 01/22/2018) * CBC W AUTO DIFFERENTIAL(Performed 01/22/2018) * COMPREHENSIVE METABOLIC PANEL(Performed 01/22/2018) * CT ABDOMEN MULTI PHASE W CONT(Performed 01/22/2018) Performed for Other ascites * GLUCOSE - POINT OF CARE(Performed 01/22/2018) * XR CHEST 1VW PORTABLE(Performed 01/22/2018) Performed for SOB (shortness of breath) * GLUCOSE - POINT OF CARE(Performed 01/22/2018) * GLUCOSE - POINT OF CARE(Performed 01/22/2018) * GLUCOSE - POINT OF CARE(Performed 01/21/2018) * GLUCOSE - POINT OF CARE(Performed 01/21/2018) * GLUCOSE - POINT OF CARE(Performed 01/21/2018) * ECHO COMPLETE(Performed 01/21/2018) * TRANSFERRIN(Performed 01/21/2018) * IRON BLOOD(Performed 01/21/2018) * FERRITIN(Performed 01/21/2018) * US TIPS W ABDOMEN LIMITED(Performed 01/21/2018) Performed for Other ascites * GLUCOSE - POINT OF CARE(Performed 01/21/2018) * RBC MORPHOLOGY(Performed 01/20/2018) * PHOSPHORUS BLOOD(Performed 01/20/2018) * MAGNESIUM BLOOD(Performed 01/20/2018) * CBC W AUTO DIFFERENTIAL(Performed 01/20/2018) * COMPREHENSIVE METABOLIC PANEL(Performed 01/20/2018) * CARDIAC PROCEDURE ORDER(Performed 01/13/2018) * CARDIAC EKG ORDER(Performed 01/08/2018) * LARGE VOLUME PARACENTESIS(Performed 01/05/2018) Performed for Alcoholic cirrhosis of liver with ascites (HCC) * DIFFERENTIAL MANUAL FLUID(Performed 01/05/2018) Performed for Alcoholic cirrhosis of liver with ascites (HCC) * CELL COUNT W DIFFERENTIAL FLUID(Performed 01/05/2018) Performed for Alcoholic cirrhosis of liver with ascites (HCC) * CULTURE FLUID+GRAM STAIN(Performed 01/05/2018) Performed for Alcoholic cirrhosis of liver with ascites (HCC) * PARACENTESIS ABDOMEN (PERCUTANEOUS)(Performed 01/05/2018) Performed for Other ascites * LARGE VOLUME PARACENTESIS(Performed 12/22/2017) Performed for Alcoholic cirrhosis of liver with ascites (HCC) * DIFFERENTIAL MANUAL FLUID(Performed 12/22/2017) Performed for Alcoholic cirrhosis of liver with ascites (HCC) * CELL COUNT W DIFFERENTIAL FLUID(Performed 12/22/2017) Performed for Alcoholic cirrhosis of liver with ascites (HCC) * CULTURE FLUID+GRAM STAIN(Performed 12/22/2017) Performed for Alcoholic cirrhosis of liver with ascites (HCC) * PARACENTESIS ABDOMEN (PERCUTANEOUS)(Performed 12/22/2017) Performed for Other ascites * RBC MORPHOLOGY(Performed 12/22/2017) Performed for Alcoholic cirrhosis of liver with ascites (HCC) * PT-INR [facility](Performed 12/22/2017) Performed for Alcoholic cirrhosis of liver with ascites (HCC) * CBC W AUTO DIFFERENTIAL(Performed 12/22/2017) Performed for Alcoholic cirrhosis of liver with ascites (HCC) * COMPREHENSIVE METABOLIC PANEL(Performed 12/22/2017) Performed for Alcoholic cirrhosis of liver with ascites (HCC) * CARDIAC EKG ORDER(Performed 12/12/2017) * GLUCOSE - POINT OF CARE(Performed 12/07/2017) * GLUCOSE - POINT OF CARE(Performed 12/07/2017) * RBC MORPHOLOGY(Performed 12/07/2017) * PHOSPHORUS BLOOD(Performed 12/07/2017) * MAGNESIUM BLOOD(Performed 12/07/2017) * PT-INR [facility](Performed 12/07/2017) * COMPREHENSIVE METABOLIC PANEL(Performed 12/07/2017) * CBC W AUTO DIFFERENTIAL(Performed 12/07/2017) * GLUCOSE - POINT OF CARE(Performed 12/06/2017) * GLUCOSE - POINT OF CARE(Performed 12/06/2017) * CBC W/O DIFFERENTIAL(Performed 12/06/2017) * GLUCOSE - POINT OF CARE(Performed 12/06/2017) * GLUCOSE - POINT OF CARE(Performed 12/06/2017) * PHOSPHORUS BLOOD(Performed 12/06/2017) * MAGNESIUM BLOOD(Performed 12/06/2017) * CBC W/O DIFFERENTIAL(Performed 12/06/2017) * COMPREHENSIVE METABOLIC PANEL(Performed 12/06/2017) * GLUCOSE - POINT OF CARE(Performed 12/05/2017) * CBC W/O DIFFERENTIAL(Performed 12/05/2017) * GLUCOSE - POINT OF CARE(Performed 12/05/2017) * GLUCOSE - POINT OF CARE(Performed 12/05/2017) * CBC W/O DIFFERENTIAL(Performed 12/05/2017) * EKG 12-LEAD(Performed 12/05/2017) Performed for Alcoholic cirrhosis of liver with ascites (HCC), Fibromyalgia * GLUCOSE - POINT OF CARE(Performed 12/05/2017) * HEMOGLOBIN A1C(Performed 12/05/2017) * COMPREHENSIVE METABOLIC PANEL(Performed 12/05/2017) * CBC W/O DIFFERENTIAL(Performed 12/05/2017) * GLUCOSE - POINT OF CARE(Performed 12/04/2017) * RBC MORPHOLOGY(Performed 12/04/2017) * PT-INR [facility](Performed 12/04/2017) * PHOSPHORUS BLOOD(Performed 12/04/2017) * MAGNESIUM BLOOD(Performed 12/04/2017) * COMPREHENSIVE METABOLIC PANEL(Performed 12/04/2017) * CBC W AUTO DIFFERENTIAL(Performed 12/04/2017) * EKG 12-LEAD(Performed 12/04/2017) Performed for Cirrhosis of liver with ascites, unspecified hepatic cirrhosis type (HCC) * IR TIPS PROCEDURE(Performed 12/04/2017) Performed for Cirrhosis of liver with ascites, unspecified hepatic cirrhosis type (HCC) * ARTERIAL LINE NOTE(Performed 12/04/2017) * ENDOTRACHEAL TUBE NOTE(Performed 12/04/2017) * PREPARE RBC LEUKOREDUCED UNIT(Performed 12/04/2017) Performed for Cirrhosis of liver with ascites, unspecified hepatic cirrhosis type (HCC) * PREPARE RBC LEUKOREDUCED UNIT(Performed 12/04/2017) Performed for Cirrhosis of liver with ascites, unspecified hepatic cirrhosis type (HCC) * TYPE + SCREEN PANEL(Performed 12/04/2017) Performed for Cirrhosis of liver with ascites, unspecified hepatic cirrhosis type (HCC) * PT-INR [facility](Performed 12/04/2017) Performed for Cirrhosis of liver with ascites, unspecified hepatic cirrhosis type (HCC) * COMPREHENSIVE METABOLIC PANEL(Performed 12/04/2017) Performed for Cirrhosis of liver with ascites, unspecified hepatic cirrhosis type (HCC) * CBC W/O DIFFERENTIAL(Performed 12/04/2017) Performed for Cirrhosis of liver with ascites, unspecified hepatic cirrhosis type (HCC) * LARGE VOLUME PARACENTESIS(Performed 11/27/2017) Performed for Cirrhosis of liver with ascites, unspecified hepatic cirrhosis type (HCC) * DIFFERENTIAL MANUAL FLUID(Performed 11/27/2017) Performed for Cirrhosis of liver with ascites, unspecified hepatic cirrhosis type (HCC) * CELL COUNT W DIFFERENTIAL FLUID(Performed 11/27/2017) Performed for Cirrhosis of liver with ascites, unspecified hepatic cirrhosis type (HCC) * CULTURE FLUID+GRAM STAIN(Performed 11/27/2017) Performed for Cirrhosis of liver with ascites, unspecified hepatic cirrhosis type (HCC) * PARACENTESIS ABDOMEN (PERCUTANEOUS)(Performed 11/27/2017) Performed for Other ascites * LARGE VOLUME PARACENTESIS(Performed 11/20/2017) Performed for Cirrhosis of liver with ascites, unspecified hepatic cirrhosis type (HCC) * PARACENTESIS ABDOMEN (PERCUTANEOUS)(Performed 11/20/2017) Performed for Other ascites * DIFFERENTIAL MANUAL FLUID(Performed 11/20/2017) Performed for Cirrhosis of liver with ascites, unspecified hepatic cirrhosis type (HCC) * CELL COUNT W DIFFERENTIAL FLUID(Performed 11/20/2017) Performed for Cirrhosis of liver with ascites, unspecified hepatic cirrhosis type (HCC) * CULTURE FLUID+GRAM STAIN(Performed 11/20/2017) Performed for Cirrhosis of liver with ascites, unspecified hepatic cirrhosis type (HCC) * LARGE VOLUME PARACENTESIS(Performed 11/13/2017) Performed for Cirrhosis of liver with ascites, unspecified hepatic cirrhosis type (HCC) * PARACENTESIS ABDOMEN (PERCUTANEOUS)(Performed 11/13/2017) Performed for Other ascites * DIFFERENTIAL MANUAL FLUID(Performed 11/13/2017) Performed for Cirrhosis of liver with ascites, unspecified hepatic cirrhosis type (HCC) * CELL COUNT W DIFFERENTIAL FLUID(Performed 11/13/2017) Performed for Cirrhosis of liver with ascites, unspecified hepatic cirrhosis type (HCC) * CULTURE FLUID+GRAM STAIN(Performed 11/13/2017) Performed for Cirrhosis of liver with ascites, unspecified hepatic cirrhosis type (HCC) * TYPE + SCREEN PANEL(Performed 11/12/2017) Performed for Cirrhosis of liver with ascites, unspecified hepatic cirrhosis type (HCC), Fibromyalgia * EKG 12-LEAD(Performed 11/12/2017) Performed for Cirrhosis of liver with ascites, unspecified hepatic cirrhosis type (HCC) * LARGE VOLUME PARACENTESIS(Performed 11/06/2017) Performed for Cirrhosis of liver with ascites, unspecified hepatic cirrhosis type (HCC) * PARACENTESIS ABDOMEN (PERCUTANEOUS)(Performed 11/06/2017) Performed for Other ascites * DIFFERENTIAL MANUAL FLUID(Performed 11/06/2017) Performed for Cirrhosis of liver with ascites, unspecified hepatic cirrhosis type (HCC) * CELL COUNT W DIFFERENTIAL FLUID(Performed 11/06/2017) Performed for Cirrhosis of liver with ascites, unspecified hepatic cirrhosis type (HCC) * CULTURE FLUID+GRAM STAIN(Performed 11/06/2017) Performed for Cirrhosis of liver with ascites, unspecified hepatic cirrhosis type (HCC) * RBC MORPHOLOGY(Performed 11/06/2017) Performed for Cirrhosis of liver with ascites, unspecified hepatic cirrhosis type (HCC) * PT-INR [facility](Performed 11/06/2017) Performed for Cirrhosis of liver with ascites, unspecified hepatic cirrhosis type (HCC) * CBC W AUTO DIFFERENTIAL(Performed 11/06/2017) Performed for Cirrhosis of liver with ascites, unspecified hepatic cirrhosis type (HCC) * COMPREHENSIVE METABOLIC PANEL(Performed 11/06/2017) Performed for Cirrhosis of liver with ascites, unspecified hepatic cirrhosis type (HCC) * LARGE VOLUME PARACENTESIS(Performed 10/30/2017) Performed for Cirrhosis of liver with ascites, unspecified hepatic cirrhosis type (HCC) * PARACENTESIS ABDOMEN (PERCUTANEOUS)(Performed 10/30/2017) Performed for Cirrhosis of liver with ascites, unspecified hepatic cirrhosis type (HCC) * DIFFERENTIAL MANUAL FLUID(Performed 10/30/2017) Performed for Cirrhosis of liver with ascites, unspecified hepatic cirrhosis type (HCC) * CELL COUNT W DIFFERENTIAL FLUID(Performed 10/30/2017) Performed for Cirrhosis of liver with ascites, unspecified hepatic cirrhosis type (HCC) * CULTURE FLUID+GRAM STAIN(Performed 10/30/2017) Performed for Cirrhosis of liver with ascites, unspecified hepatic cirrhosis type (HCC) * ECHOCARDIOGRAM 2D WITH DOPPLER(Performed 10/27/2017) Performed for Cirrhosis of liver with ascites, unspecified hepatic cirrhosis type (HCC) * LARGE VOLUME PARACENTESIS(Performed 10/23/2017) Performed for Cirrhosis of liver with ascites, unspecified hepatic cirrhosis type (HCC) * PARACENTESIS ABDOMEN (PERCUTANEOUS)(Performed 10/23/2017) Performed for Cirrhosis of liver with ascites, unspecified hepatic cirrhosis type (HCC) * CULTURE FLUID+GRAM STAIN(Performed 10/23/2017) Performed for Cirrhosis of liver with ascites, unspecified hepatic cirrhosis type (HCC) * DIFFERENTIAL MANUAL FLUID(Performed 10/23/2017) Performed for Cirrhosis of liver with ascites, unspecified hepatic cirrhosis type (HCC) * CELL COUNT W DIFFERENTIAL FLUID(Performed 10/23/2017) Performed for Cirrhosis of liver with ascites, unspecified hepatic cirrhosis type (HCC) * LARGE VOLUME PARACENTESIS(Performed 10/16/2017) Performed for Other ascites, Cirrhosis of liver with ascites, unspecified hepatic cirrhosis type (HCC) * DIFFERENTIAL MANUAL FLUID(Performed 10/16/2017) Performed for Other ascites, Cirrhosis of liver with ascites, unspecified hepatic cirrhosis type (HCC) * CELL COUNT W DIFFERENTIAL FLUID(Performed 10/16/2017) Performed for Other ascites, Cirrhosis of liver with ascites, unspecified hepatic cirrhosis type (HCC) * CULTURE FLUID+GRAM STAIN(Performed 10/16/2017) Performed for Other ascites, Cirrhosis of liver with ascites, unspecified hepatic cirrhosis type (HCC) * PARACENTESIS ABDOMEN (PERCUTANEOUS)(Performed 10/16/2017) Performed for Cirrhosis of liver without ascites, unspecified hepatic cirrhosis type (HCC) * OK CYSTOURETHROSCOPY(Performed 10/15/2017) Performed for Hematuria, unspecified type * URINALYSIS AUTO - POINT OF CARE (AMB) [facility](Performed 10/14/2017) Performed for Hematuria, unspecified type * LARGE VOLUME PARACENTESIS(Performed 10/09/2017) Performed for Cirrhosis of liver with ascites, unspecified hepatic cirrhosis type (HCC) * PARACENTESIS ABDOMEN (PERCUTANEOUS)(Performed 10/09/2017) Performed for Cirrhosis of liver without ascites, unspecified hepatic cirrhosis type (HCC) * RBC MORPHOLOGY(Performed 10/09/2017) Performed for Cirrhosis of liver with ascites, unspecified hepatic cirrhosis type (HCC) * DIFFERENTIAL MANUAL FLUID(Performed 10/09/2017) Performed for Cirrhosis of liver with ascites, unspecified hepatic cirrhosis type (HCC) * CBC W AUTO DIFFERENTIAL(Performed 10/09/2017) Performed for Cirrhosis of liver with ascites, unspecified hepatic cirrhosis type (HCC) * PT-INR [facility](Performed 10/09/2017) Performed for Cirrhosis of liver with ascites, unspecified hepatic cirrhosis type (HCC) * COMPREHENSIVE METABOLIC PANEL(Performed 10/09/2017) Performed for Cirrhosis of liver with ascites, unspecified hepatic cirrhosis type (HCC) * CELL COUNT W DIFFERENTIAL FLUID(Performed 10/09/2017) Performed for Cirrhosis of liver with ascites, unspecified hepatic cirrhosis type (HCC) * CULTURE FLUID+GRAM STAIN(Performed 10/09/2017) Performed for Cirrhosis of liver with ascites, unspecified hepatic cirrhosis type (HCC) * LARGE VOLUME PARACENTESIS(Performed 10/02/2017) Performed for Cirrhosis of liver with ascites, unspecified hepatic cirrhosis type (HCC) * PARACENTESIS ABDOMEN (PERCUTANEOUS)(Performed 10/02/2017) Performed for Cirrhosis of liver without ascites, unspecified hepatic cirrhosis type (HCC) * DIFFERENTIAL MANUAL FLUID(Performed 10/02/2017) Performed for Cirrhosis of liver with ascites, unspecified hepatic cirrhosis type (HCC) * CELL COUNT W DIFFERENTIAL FLUID(Performed 10/02/2017) Performed for Cirrhosis of liver with ascites, unspecified hepatic cirrhosis type (HCC) * CULTURE FLUID+GRAM STAIN(Performed 10/02/2017) Performed for Cirrhosis of liver with ascites, unspecified hepatic cirrhosis type (HCC) * LARGE VOLUME PARACENTESIS(Performed 09/25/2017) Performed for Cirrhosis of liver with ascites, unspecified hepatic cirrhosis type (HCC) * DIFFERENTIAL MANUAL FLUID(Performed 09/25/2017) Performed for Cirrhosis of liver with ascites, unspecified hepatic cirrhosis type (HCC) * CELL COUNT W DIFFERENTIAL FLUID(Performed 09/25/2017) Performed for Cirrhosis of liver with ascites, unspecified hepatic cirrhosis type (HCC) * CULTURE FLUID+GRAM STAIN(Performed 09/25/2017) Performed for Cirrhosis of liver with ascites, unspecified hepatic cirrhosis type (HCC) * PARACENTESIS ABDOMEN (PERCUTANEOUS)(Performed 09/25/2017) Performed for Other ascites * LARGE VOLUME PARACENTESIS(Performed 09/18/2017) Performed for Cirrhosis of liver with ascites, unspecified hepatic cirrhosis type (HCC) * DIFFERENTIAL MANUAL FLUID(Performed 09/18/2017) Performed for Cirrhosis of liver with ascites, unspecified hepatic cirrhosis type (HCC) * CELL COUNT W DIFFERENTIAL FLUID(Performed 09/18/2017) Performed for Cirrhosis of liver with ascites, unspecified hepatic cirrhosis type (HCC) * CULTURE FLUID+GRAM STAIN(Performed 09/18/2017) Performed for Cirrhosis of liver with ascites, unspecified hepatic cirrhosis type (HCC) * PARACENTESIS ABDOMEN (PERCUTANEOUS)(Performed 09/18/2017) Performed for Other ascites * LARGE VOLUME PARACENTESIS(Performed 09/11/2017) Performed for Cirrhosis of liver with ascites, unspecified hepatic cirrhosis type (HCC) * DIFFERENTIAL MANUAL FLUID(Performed 09/11/2017) Performed for Cirrhosis of liver with ascites, unspecified hepatic cirrhosis type (HCC) * CELL COUNT W DIFFERENTIAL FLUID(Performed 09/11/2017) Performed for Cirrhosis of liver with ascites, unspecified hepatic cirrhosis type (HCC) * CULTURE FLUID+GRAM STAIN(Performed 09/11/2017) Performed for Cirrhosis of liver with ascites, unspecified hepatic cirrhosis type (HCC) * PARACENTESIS ABDOMEN (PERCUTANEOUS)(Performed 09/11/2017) Performed for Other ascites * RBC MORPHOLOGY(Performed 09/11/2017) Performed for Cirrhosis of liver with ascites, unspecified hepatic cirrhosis type (HCC) * PT-INR [facility](Performed 09/11/2017) Performed for Cirrhosis of liver with ascites, unspecified hepatic cirrhosis type (HCC) * CBC W AUTO DIFFERENTIAL(Performed 09/11/2017) Performed for Cirrhosis of liver with ascites, unspecified hepatic cirrhosis type (HCC) * COMPREHENSIVE METABOLIC PANEL(Performed 09/11/2017) Performed for Cirrhosis of liver with ascites, unspecified hepatic cirrhosis type (HCC) * GLUCOSE - POINT OF CARE(Performed 09/11/2017) * DIFFERENTIAL MANUAL FLUID(Performed 09/04/2017) Performed for Cirrhosis of liver with ascites, unspecified hepatic cirrhosis type (HCC) * CELL COUNT W DIFFERENTIAL FLUID(Performed 09/04/2017) Performed for Cirrhosis of liver with ascites, unspecified hepatic cirrhosis type (HCC) * CULTURE FLUID+GRAM STAIN(Performed 09/04/2017) Performed for Cirrhosis of liver with ascites, unspecified hepatic cirrhosis type (HCC) * PARACENTESIS ABDOMEN (PERCUTANEOUS)(Performed 09/04/2017) Performed for Other ascites * LARGE VOLUME PARACENTESIS(Performed 09/04/2017) Performed for Cirrhosis of liver with ascites, unspecified hepatic cirrhosis type (HCC) * PARACENTESIS ABDOMEN (PERCUTANEOUS)(Performed 08/28/2017) Performed for Other ascites * DIFFERENTIAL MANUAL FLUID(Performed 08/28/2017) Performed for Cirrhosis of liver with ascites, unspecified hepatic cirrhosis type (HCC) * CELL COUNT W DIFFERENTIAL FLUID(Performed 08/28/2017) Performed for Cirrhosis of liver with ascites, unspecified hepatic cirrhosis type (HCC) * CULTURE FLUID+GRAM STAIN(Performed 08/28/2017) Performed for Cirrhosis of liver with ascites, unspecified hepatic cirrhosis type (HCC) * LARGE VOLUME PARACENTESIS(Performed 08/28/2017) Performed for Cirrhosis of liver with ascites, unspecified hepatic cirrhosis type (HCC) * LARGE VOLUME PARACENTESIS(Performed 08/21/2017) Performed for Cirrhosis of liver with ascites, unspecified hepatic cirrhosis type (HCC) * DIFFERENTIAL MANUAL FLUID(Performed 08/21/2017) Performed for Cirrhosis of liver with ascites, unspecified hepatic cirrhosis type (HCC) * CELL COUNT W DIFFERENTIAL FLUID(Performed 08/21/2017) Performed for Cirrhosis of liver with ascites, unspecified hepatic cirrhosis type (HCC) * CULTURE FLUID+GRAM STAIN(Performed 08/21/2017) Performed for Cirrhosis of liver with ascites, unspecified hepatic cirrhosis type (HCC) * PARACENTESIS ABDOMEN (PERCUTANEOUS)(Performed 08/21/2017) Performed for Other ascites * URINALYSIS (EXTERNAL RESULT ENTRY)(Performed 08/18/2017) * HEMOGLOBIN A1C (EXTERNAL RESULT ENTRY)(Performed 08/18/2017) * LIPID PROFILE (EXTERAL RESULT ENTRY)(Performed 08/18/2017) * COMP MET PANEL (EXTERNAL RESULT ENTRY)(Performed 08/18/2017) * CBC W DIFF (EXTERNAL RESULT ENTRY)(Performed 08/18/2017) * LARGE VOLUME PARACENTESIS(Performed 08/14/2017) Performed for Anemia, unspecified type, Cirrhosis of liver with ascites, unspecified hepatic cirrhosis type (HCC) * CULTURE FLUID+GRAM STAIN(Performed 08/14/2017) Performed for Anemia, unspecified type, Cirrhosis of liver with ascites, unspecified hepatic cirrhosis type (HCC) * DIFFERENTIAL MANUAL FLUID(Performed 08/14/2017) Performed for Anemia, unspecified type, Cirrhosis of liver with ascites, unspecified hepatic cirrhosis type (HCC) * CELL COUNT W DIFFERENTIAL FLUID(Performed 08/14/2017) Performed for Anemia, unspecified type, Cirrhosis of liver with ascites, unspecified hepatic cirrhosis type (HCC) * PARACENTESIS ABDOMEN (PERCUTANEOUS)(Performed 08/14/2017) Performed for Other ascites * LARGE VOLUME PARACENTESIS(Performed 08/07/2017) Performed for Cirrhosis of liver with ascites, unspecified hepatic cirrhosis type (HCC) * DIFFERENTIAL MANUAL FLUID(Performed 08/07/2017) Performed for Cirrhosis of liver with ascites, unspecified hepatic cirrhosis type (HCC) * CELL COUNT W DIFFERENTIAL FLUID(Performed 08/07/2017) Performed for Cirrhosis of liver with ascites, unspecified hepatic cirrhosis type (HCC) * CULTURE FLUID+GRAM STAIN(Performed 08/07/2017) Performed for Cirrhosis of liver with ascites, unspecified hepatic cirrhosis type (HCC) * PARACENTESIS ABDOMEN (PERCUTANEOUS)(Performed 08/07/2017) Performed for Other ascites * LARGE VOLUME PARACENTESIS(Performed 07/31/2017) Performed for Cirrhosis of liver with ascites, unspecified hepatic cirrhosis type (HCC) * PARACENTESIS ABDOMEN (PERCUTANEOUS)(Performed 07/31/2017) Performed for Other ascites * DIFFERENTIAL MANUAL FLUID(Performed 07/31/2017) Performed for Cirrhosis of liver with ascites, unspecified hepatic cirrhosis type (HCC) * CELL COUNT W DIFFERENTIAL FLUID(Performed 07/31/2017) Performed for Cirrhosis of liver with ascites, unspecified hepatic cirrhosis type (HCC) * CULTURE FLUID+GRAM STAIN(Performed 07/31/2017) Performed for Cirrhosis of liver with ascites, unspecified hepatic cirrhosis type (HCC) * LARGE VOLUME PARACENTESIS(Performed 07/24/2017) Performed for Other iron deficiency anemia, Cirrhosis of liver with ascites, unspecified hepatic cirrhosis type (HCC) * PARACENTESIS ABDOMEN (PERCUTANEOUS)(Performed 07/24/2017) Performed for Other ascites * RBC MORPHOLOGY(Performed 07/24/2017) Performed for Other iron deficiency anemia, Cirrhosis of liver with ascites, unspecified hepatic cirrhosis type (HCC) * TISSUE TRANSGLUTAMINASE AB IGA(Performed 07/24/2017) Performed for Other iron deficiency anemia, Cirrhosis of liver with ascites, unspecified hepatic cirrhosis type (HCC) * PT-INR [facility](Performed 07/24/2017) Performed for Other iron deficiency anemia, Cirrhosis of liver with ascites, unspecified hepatic cirrhosis type (HCC) * CBC W AUTO DIFFERENTIAL(Performed 07/24/2017) Performed for Other iron deficiency anemia, Cirrhosis of liver with ascites, unspecified hepatic cirrhosis type (HCC) * COMPREHENSIVE METABOLIC PANEL(Performed 07/24/2017) Performed for Other iron deficiency anemia, Cirrhosis of liver with ascites, unspecified hepatic cirrhosis type (HCC) * DIFFERENTIAL MANUAL FLUID(Performed 07/24/2017) Performed for Other iron deficiency anemia, Cirrhosis of liver with ascites, unspecified hepatic cirrhosis type (HCC) * CELL COUNT W DIFFERENTIAL FLUID(Performed 07/24/2017) Performed for Other iron deficiency anemia, Cirrhosis of liver with ascites, unspecified hepatic cirrhosis type (HCC) * CULTURE FLUID+GRAM STAIN(Performed 07/24/2017) Performed for Other iron deficiency anemia, Cirrhosis of liver with ascites, unspecified hepatic cirrhosis type (HCC) * LARGE VOLUME PARACENTESIS(Performed 07/17/2017) Performed for Cirrhosis of liver with ascites, unspecified hepatic cirrhosis type (HCC) * DIFFERENTIAL MANUAL FLUID(Performed 07/17/2017) Performed for Cirrhosis of liver with ascites, unspecified hepatic cirrhosis type (HCC) * CELL COUNT W DIFFERENTIAL FLUID(Performed 07/17/2017) Performed for Cirrhosis of liver with ascites, unspecified hepatic cirrhosis type (HCC) * CULTURE FLUID+GRAM STAIN(Performed 07/17/2017) Performed for Cirrhosis of liver with ascites, unspecified hepatic cirrhosis type (HCC) * PARACENTESIS ABDOMEN (PERCUTANEOUS)(Performed 07/17/2017) Performed for Other ascites * PATHOLOGY TISSUE(Performed 06/30/2017) Performed for Anemia, unspecified type * ESOPHAGOGASTRODUODENOSCOPY (EGD) DIAGNOSTIC(Performed 06/30/2017) Performed for Anemia, unspecified type * EGD(Performed 06/30/2017) * LARGE VOLUME PARACENTESIS(Performed 06/30/2017) Performed for Cirrhosis of liver with ascites, unspecified hepatic cirrhosis type (HCC) * PARACENTESIS ABDOMEN (PERCUTANEOUS)(Performed 06/30/2017) Performed for Other ascites * DIFFERENTIAL MANUAL FLUID(Performed 06/30/2017) Performed for Cirrhosis of liver with ascites, unspecified hepatic cirrhosis type (HCC) * CELL COUNT W DIFFERENTIAL FLUID(Performed 06/30/2017) Performed for Cirrhosis of liver with ascites, unspecified hepatic cirrhosis type (HCC) * CULTURE FLUID+GRAM STAIN(Performed 06/30/2017) Performed for Cirrhosis of liver with ascites, unspecified hepatic cirrhosis type (HCC) * RBC MORPHOLOGY(Performed 06/30/2017) Performed for Cirrhosis of liver with ascites, unspecified hepatic cirrhosis type (HCC) * PT-INR [facility](Performed 06/30/2017) Performed for Cirrhosis of liver with ascites, unspecified hepatic cirrhosis type (HCC) * CBC W AUTO DIFFERENTIAL(Performed 06/30/2017) Performed for Cirrhosis of liver with ascites, unspecified hepatic cirrhosis type (HCC) * COMPREHENSIVE METABOLIC PANEL(Performed 06/30/2017) Performed for Cirrhosis of liver with ascites, unspecified hepatic cirrhosis type (HCC) * TYPE + SCREEN PANEL(Performed 06/30/2017) Performed for Cirrhosis of liver with ascites, unspecified hepatic cirrhosis type (HCC) * LARGE VOLUME PARACENTESIS(Performed 06/19/2017) Performed for Other ascites, Cirrhosis of liver with ascites, unspecified hepatic cirrhosis type (HCC) * PARACENTESIS ABDOMEN (PERCUTANEOUS)(Performed 06/19/2017) Performed for Other ascites * RBC MORPHOLOGY(Performed 06/19/2017) Performed for Other iron deficiency anemia * DIFFERENTIAL MANUAL FLUID(Performed 06/19/2017) Performed for Other ascites, Cirrhosis of liver with ascites, unspecified hepatic cirrhosis type (HCC) * CBC W AUTO DIFFERENTIAL(Performed 06/19/2017) Performed for Other iron deficiency anemia * CELL COUNT W DIFFERENTIAL FLUID(Performed 06/19/2017) Performed for Other ascites, Cirrhosis of liver with ascites, unspecified hepatic cirrhosis type (HCC) * CULTURE FLUID+GRAM STAIN(Performed 06/19/2017) Performed for Other ascites, Cirrhosis of liver with ascites, unspecified hepatic cirrhosis type (HCC) * CBC W AUTO DIFFERENTIAL(Performed 05/29/2017) * RBC MORPHOLOGY(Performed 05/29/2017) * COMPREHENSIVE METABOLIC PANEL(Performed 05/29/2017) * PT-INR [facility](Performed 05/29/2017) * CBC W AUTO DIFFERENTIAL(Performed 05/29/2017) * DIFFERENTIAL MANUAL FLUID(Performed 05/22/2017) * CELL COUNT FLUID(Performed 05/22/2017) * CELL COUNT W DIFFERENTIAL FLUID(Performed 05/22/2017) * CULTURE ANAEROBE(Performed 05/22/2017) * CULTURE AEROBIC(Performed 05/22/2017) * DIFFERENTIAL MANUAL FLUID(Performed 05/08/2017) * CELL COUNT FLUID(Performed 05/08/2017) * CULTURE ANAEROBE(Performed 05/08/2017) * CULTURE AEROBIC(Performed 05/08/2017) * CELL COUNT W DIFFERENTIAL FLUID(Performed 05/08/2017) * DIFFERENTIAL MANUAL FLUID(Performed 05/01/2017) * CELL COUNT FLUID(Performed 05/01/2017) * CULTURE ANAEROBE(Performed 05/01/2017) * CULTURE AEROBIC(Performed 05/01/2017) * CELL COUNT W DIFFERENTIAL FLUID(Performed 05/01/2017) * CBC W AUTO DIFFERENTIAL(Performed 05/01/2017) * RBC MORPHOLOGY(Performed 05/01/2017) * COMPREHENSIVE METABOLIC PANEL(Performed 05/01/2017) * PT-INR [facility](Performed 05/01/2017) * CBC W AUTO DIFFERENTIAL(Performed 05/01/2017) * CBC W AUTO DIFFERENTIAL(Performed 04/04/2017) * RBC MORPHOLOGY(Performed 04/04/2017) * HEPATIC FUNCTION PANEL(Performed 04/04/2017) * BASIC METABOLIC PANEL (CALCIUM TOTAL)(Performed 04/04/2017) * PTT [facility](Performed 04/04/2017) * PT-INR [facility](Performed 04/04/2017) * CBC W AUTO DIFFERENTIAL(Performed 04/04/2017) * DIFFERENTIAL MANUAL FLUID(Performed 03/27/2017) * CELL COUNT FLUID(Performed 03/27/2017) * CULTURE AEROBIC(Performed 03/27/2017) * CULTURE ANAEROBE(Performed 03/27/2017) * CELL COUNT W DIFFERENTIAL FLUID(Performed 03/27/2017) * CT ABDOMEN MULTI PHASE W CONT(Performed 03/20/2017) * CREATININE BLOOD - POCT (IP) [facility]H(Performed 03/20/2017) * CELL COUNT W DIFFERENTIAL FLUID(Performed 03/13/2017) * DIFFERENTIAL MANUAL FLUID(Performed 03/13/2017) * CELL COUNT FLUID(Performed 03/13/2017) * CULTURE AEROBIC(Performed 03/13/2017) * CULTURE ANAEROBE(Performed 03/13/2017) * CBC W AUTO DIFFERENTIAL(Performed 03/13/2017) * CBC W AUTO DIFFERENTIAL(Performed 03/13/2017) * RBC MORPHOLOGY(Performed 03/13/2017) * COMPREHENSIVE METABOLIC PANEL(Performed 03/13/2017) * PT-INR [facility](Performed 03/13/2017) * CULTURE ANAEROBE(Performed 02/28/2017) * DIFFERENTIAL MANUAL FLUID(Performed 02/28/2017) * CELL COUNT FLUID(Performed 02/28/2017) * CULTURE AEROBIC(Performed 02/28/2017) * CELL COUNT W DIFFERENTIAL FLUID(Performed 02/28/2017) * DIFFERENTIAL MANUAL FLUID(Performed 02/13/2017) * CELL COUNT FLUID(Performed 02/13/2017) * CULTURE ANAEROBE(Performed 02/13/2017) * CULTURE AEROBIC(Performed 02/13/2017) * COMPREHENSIVE METABOLIC PANEL(Performed 02/13/2017) * PT-INR [facility](Performed 02/13/2017) * RBC MORPHOLOGY(Performed 02/13/2017) * CBC W AUTO DIFFERENTIAL(Performed 02/13/2017) * CELL COUNT W DIFFERENTIAL FLUID(Performed 02/13/2017) * CBC W AUTO DIFFERENTIAL(Performed 02/13/2017) * DIFFERENTIAL MANUAL FLUID(Performed 01/30/2017) * CELL COUNT FLUID(Performed 01/30/2017) * CULTURE AEROBIC(Performed 01/30/2017) * CULTURE ANAEROBE(Performed 01/30/2017) * CELL COUNT W DIFFERENTIAL FLUID(Performed 01/30/2017) * DIFFERENTIAL MANUAL FLUID(Performed 01/20/2017) * CELL COUNT FLUID(Performed 01/20/2017) * CULTURE ANAEROBE(Performed 01/20/2017) * CULTURE AEROBIC(Performed 01/20/2017) * CELL COUNT W DIFFERENTIAL FLUID(Performed 01/20/2017) * RBC MORPHOLOGY(Performed 01/20/2017) * CBC W AUTO DIFFERENTIAL(Performed 01/20/2017) * CBC W AUTO DIFFERENTIAL(Performed 01/20/2017) * TYPE + SCREEN PANEL(Performed 01/20/2017) * DIFFERENTIAL MANUAL FLUID(Performed 01/09/2017) * CELL COUNT FLUID(Performed 01/09/2017) * RBC MORPHOLOGY(Performed 01/09/2017) * CBC W AUTO DIFFERENTIAL(Performed 01/09/2017) * COMPREHENSIVE METABOLIC PANEL(Performed 01/09/2017) * PT-INR [facility](Performed 01/09/2017) * CULTURE AEROBIC(Performed 01/09/2017) * CULTURE ANAEROBE(Performed 01/09/2017) * CBC W AUTO DIFFERENTIAL(Performed 01/09/2017) * CELL COUNT W DIFFERENTIAL FLUID(Performed 01/09/2017) * RBC MORPHOLOGY(Performed 12/26/2016) * CBC W AUTO DIFFERENTIAL(Performed 12/26/2016) * DIFFERENTIAL MANUAL FLUID(Performed 12/26/2016) * CELL COUNT FLUID(Performed 12/26/2016) * CULTURE AEROBIC(Performed 12/26/2016) * CULTURE ANAEROBE(Performed 12/26/2016) * CELL COUNT W DIFFERENTIAL FLUID(Performed 12/26/2016) * CBC W AUTO DIFFERENTIAL(Performed 12/26/2016) * DIFFERENTIAL MANUAL FLUID(Performed 12/12/2016) * CELL COUNT FLUID(Performed 12/12/2016) * CULTURE ANAEROBE(Performed 12/12/2016) * CULTURE AEROBIC(Performed 12/12/2016) * CELL COUNT W DIFFERENTIAL FLUID(Performed 12/12/2016) * PT-INR [facility](Performed 12/12/2016) * COMPREHENSIVE METABOLIC PANEL(Performed 12/12/2016) * RBC MORPHOLOGY(Performed 12/12/2016) * CBC W AUTO DIFFERENTIAL(Performed 12/12/2016) * CBC W AUTO DIFFERENTIAL(Performed 12/12/2016) * DIFFERENTIAL MANUAL FLUID(Performed 11/28/2016) * CELL COUNT FLUID(Performed 11/28/2016) * CULTURE ANAEROBE(Performed 11/28/2016) * CULTURE AEROBIC(Performed 11/28/2016) * CELL COUNT W DIFFERENTIAL FLUID(Performed 11/28/2016) * DIFFERENTIAL MANUAL FLUID(Performed 11/11/2016) * CELL COUNT FLUID(Performed 11/11/2016) * PT-INR [facility](Performed 11/11/2016) * RBC MORPHOLOGY(Performed 11/11/2016) * CBC W AUTO DIFFERENTIAL(Performed 11/11/2016) * COMPREHENSIVE METABOLIC PANEL(Performed 11/11/2016) * CELL COUNT W DIFFERENTIAL FLUID(Performed 11/11/2016) * CBC W AUTO DIFFERENTIAL(Performed 11/11/2016) * CULTURE ANAEROBE(Performed 11/11/2016) * CULTURE AEROBIC(Performed 11/11/2016) * DIFFERENTIAL MANUAL FLUID(Performed 10/28/2016) * CELL COUNT FLUID(Performed 10/28/2016) * CULTURE ANAEROBE(Performed 10/28/2016) * CULTURE AEROBIC(Performed 10/28/2016) * CELL COUNT W DIFFERENTIAL FLUID(Performed 10/28/2016) * DIFFERENTIAL MANUAL FLUID(Performed 10/17/2016) * CELL COUNT FLUID(Performed 10/17/2016) * CULTURE ANAEROBE(Performed 10/17/2016) * CULTURE AEROBIC(Performed 10/17/2016) * RBC MORPHOLOGY(Performed 10/17/2016) * CBC W AUTO DIFFERENTIAL(Performed 10/17/2016) * COMPREHENSIVE METABOLIC PANEL(Performed 10/17/2016) * PT-INR [facility](Performed 10/17/2016) * CBC W AUTO DIFFERENTIAL(Performed 10/17/2016) * CELL COUNT W DIFFERENTIAL FLUID(Performed 10/17/2016) * IR US PARACENTESIS(Performed 10/04/2016) * IR BIOPSY TRANSCATHETER(Performed 10/04/2016) * IR VENOGRAM HEPATIC W HEMODYNAMICS(Performed 10/04/2016) * IR VENOGRAM PROCEDURAL CODE(Performed 10/04/2016) * IR US GUIDE VASCULAR ACCESS(Performed 10/04/2016) * IR BIOPSY TRANSCATHETER(Performed 10/04/2016) * PATHOLOGY TISSUE(Performed 10/04/2016) * DIFFERENTIAL MANUAL FLUID(Performed 09/30/2016) * CELL COUNT FLUID(Performed 09/30/2016) * CULTURE ANAEROBE(Performed 09/30/2016) * CULTURE AEROBIC(Performed 09/30/2016) * RBC MORPHOLOGY(Performed 09/30/2016) * CBC W AUTO DIFFERENTIAL(Performed 09/30/2016) * CBC W AUTO DIFFERENTIAL(Performed 09/30/2016) * CELL COUNT W DIFFERENTIAL FLUID(Performed 09/30/2016) * GLUCOSE ACCUCHECK(Performed 09/30/2016) * DIFFERENTIAL MANUAL FLUID(Performed 09/12/2016) * CELL COUNT FLUID(Performed 09/12/2016) * CULTURE ANAEROBE(Performed 09/12/2016) * CULTURE AEROBIC(Performed 09/12/2016) * CELL COUNT W DIFFERENTIAL FLUID(Performed 09/12/2016) * PT-INR [facility](Performed 09/12/2016) * RBC MORPHOLOGY(Performed 09/12/2016) * CBC W AUTO DIFFERENTIAL(Performed 09/12/2016) * COMPREHENSIVE METABOLIC PANEL(Performed 09/12/2016) * CBC W AUTO DIFFERENTIAL(Performed 09/12/2016) * DIFFERENTIAL MANUAL FLUID(Performed 09/02/2016) * CELL COUNT FLUID(Performed 09/02/2016) * CULTURE ANAEROBE(Performed 09/02/2016) * CULTURE AEROBIC(Performed 09/02/2016) * CELL COUNT W DIFFERENTIAL FLUID(Performed 09/02/2016) * PATHOLOGY TISSUE(Performed 08/27/2016) * GLUCOSE ACCUCHECK(Performed 08/27/2016) * PATHOLOGY TISSUE(Performed 08/26/2016) * GLUCOSE ACCUCHECK(Performed 08/26/2016) * DIFFERENTIAL MANUAL FLUID(Performed 08/22/2016) * CELL COUNT FLUID(Performed 08/22/2016) * CULTURE ANAEROBE(Performed 08/22/2016) * CULTURE AEROBIC(Performed 08/22/2016) * CELL COUNT W DIFFERENTIAL FLUID(Performed 08/22/2016) * CT ABDOMEN MULTI PHASE W CONT(Performed 08/15/2016) * PT-INR [facility](Performed 08/12/2016) * COMPREHENSIVE METABOLIC PANEL(Performed 08/12/2016) * DIFFERENTIAL MANUAL FLUID(Performed 08/12/2016) * CELL COUNT FLUID(Performed 08/12/2016) * CULTURE ANAEROBE(Performed 08/12/2016) * CULTURE AEROBIC(Performed 08/12/2016) * CELL COUNT W DIFFERENTIAL FLUID(Performed 08/12/2016) * DIFFERENTIAL MANUAL FLUID(Performed 07/31/2016) * CELL COUNT FLUID(Performed 07/31/2016) * ALBUMIN FLUID(Performed 07/31/2016) * AMYLASE BODY FLUID(Performed 07/31/2016) * LIPASE BODY FLUID STL(Performed 07/31/2016) * PROTEIN FLUID(Performed 07/31/2016) * ALBUMIN BLOOD(Performed 07/31/2016) * CYTOLOGY NON-TIE LOADER PANEL (STL)(Performed 07/31/2016) * CULTURE ANAEROBE(Performed 07/31/2016) * CULTURE AEROBIC(Performed 07/31/2016) * CELL COUNT W DIFFERENTIAL FLUID(Performed 07/31/2016) * FPVED-1-CUNIXCRTSJN BLOOD PHENOTYPING PANEL(Performed 07/23/2016) * HEPATITIS A ANTIBODY(Performed 07/23/2016) * ALPHA FETOPROTEIN BLOOD TUMOR MARKER(Performed 07/23/2016) * HEPATITIS C ANTIBODY(Performed 07/23/2016) * HEPATITIS B SURFACE ANTIBODY(Performed 07/23/2016) * HEPATITIS B SURFACE ANTIGEN W RFLX CONFIRMATION(Performed 07/23/2016) * HEPATITIS B CORE ANTIBODY TOTAL(Performed 07/23/2016) * RBC MORPHOLOGY(Performed 07/23/2016) * IGG BLOOD(Performed 07/23/2016) * IGM BLOOD(Performed 07/23/2016) * IGA BLOOD(Performed 07/23/2016) * CERULOPLASMIN(Performed 07/23/2016) * FERRITIN(Performed 07/23/2016) * GGT(Performed 07/23/2016) * COMPREHENSIVE METABOLIC PANEL(Performed 07/23/2016) * CBC W AUTO DIFFERENTIAL(Performed 07/23/2016) * MITOCHONDRIAL ANTIBODY SCREEN(Performed 07/23/2016) * SMOOTH MUSCLE ANTIBODY(Performed 07/23/2016) * AFSHIN BLOOD SCREEN(Performed 07/23/2016) * PT-INR [facility](Performed 07/23/2016) * AFSHIN BLOOD SCREEN W/REFLEX TITER(Performed 07/23/2016) * CBC W AUTO DIFFERENTIAL(Performed 07/23/2016) * DIFFERENTIAL MANUAL FLUID(Performed 07/18/2016) * CELL COUNT FLUID(Performed 07/18/2016) * CELL COUNT W DIFFERENTIAL FLUID(Performed 07/18/2016) * CULTURE ANAEROBE(Performed 07/18/2016) * CULTURE AEROBIC(Performed 07/18/2016) * TROPONIN I(Performed 07/18/2016) * COMPREHENSIVE METABOLIC PANEL(Performed 07/18/2016) * URINALYSIS REFLEX TO MICROSCOPIC NO CULTURE(Performed 07/18/2016) * B-TYPE NATRIURETIC PEPTIDE(Performed 07/18/2016) * RBC MORPHOLOGY(Performed 07/18/2016) * CBC W AUTO DIFFERENTIAL(Performed 07/18/2016) * PTT [facility](Performed 07/18/2016) * PT-INR [facility](Performed 07/18/2016) * CBC W AUTO DIFFERENTIAL(Performed 07/18/2016) * XR CHEST 2VW(Performed 07/18/2016) * EKG 12-LEAD(Performed 07/18/2016) * BETA-2 GLYCOPROTEIN 1 ANTIBODY IGM(Performed 12/08/2014) * BETA-2 GLYCOPROTEIN 1 ANTIBODY IGG(Performed 12/08/2014) * BETA-2 GLYCOPROTEIN 1 ANTIBODY IGA(Performed 12/08/2014) * CARDIOLIPIN ANTIBODY IGM(Performed 12/08/2014) * CARDIOLIPIN ANTIBODY IGA(Performed 12/08/2014) * DNA (DS) ANTIBODY RFLEX IFA(Performed 12/08/2014) * LUPUS ANTICOAGULANT PANEL(Performed 12/08/2014) * RNA POLYMERASE III ANTIBODY IGG(Performed 12/08/2014) * CARDIOLIPIN ANTIBODY IGM(Performed 12/08/2014) * CARDIOLIPIN ANTIBODY IGG(Performed 12/08/2014) * CARDIOLIPIN ANTIBODY IGA(Performed 12/08/2014) * DNA ANTIBODY DS CRITHIDIA TITER(Performed 12/08/2014) * ALDOLASE(Performed 12/08/2014) * COMPLEMENT TOTAL(Performed 12/08/2014) * TISSUE TRANSGLUTAMINASE AB IGG(Performed 12/08/2014) * DEAMIDATED GLIADIN PEPTIDE (DGP) AB IGG(Performed 12/08/2014) * CHROMATIN ANTIBODY(Performed 12/08/2014) * CENTROMERE B ANTIBODIES(Performed 12/08/2014) * NEUTROPHIL CYTOPLASMIC ANTIBODY(Performed 12/08/2014) * AFSHIN W/REFLEX IFA PATTERN(Performed 12/08/2014) * SS-B (SJOGREN'S) ANTIBODY(Performed 12/08/2014) * SS-A (SJOGREN'S) ANTIBODY(Performed 12/08/2014) * SCLERODERMA 70 (SCL) ANTIBODY(Performed 12/08/2014) * DNA ANTIBODY DOUBLE STRANDED(Performed 12/08/2014) * VOTING MACHINE REPAIRER ANTIBODY(Performed 12/08/2014) * VELEZ (SM) ANTIBODY TYLOR(Performed 12/08/2014) * CYCLIC CITRULLINATED PEPTIDE(CCP) AB IGG(Performed 12/08/2014) * T4 FREE(Performed 12/08/2014) * VITAMIN D 25-HYDROXY(Performed 12/08/2014) * ERYTHROCYTE SEDIMENTATION RATE(Performed 12/08/2014) * RHEUMATOID FACTOR BLOOD QUANTITATIVE(Performed 12/08/2014) * HEPATITIS B SURFACE ANTIGEN W RFLX CONFIRMATION(Performed 12/08/2014) * HEPATITIS C ANTIBODY(Performed 12/08/2014) * TSH(Performed 12/08/2014) * COMPLEMENT C4(Performed 12/08/2014) * COMPLEMENT C3(Performed 12/08/2014) * CK BLOOD(Performed 12/08/2014) * COMPREHENSIVE METABOLIC PANEL(Performed 12/08/2014) * C-REACTIVE PROTEIN(Performed 12/08/2014) * URINALYSIS REFLEX TO MICROSCOPIC NO CULTURE(Performed 12/08/2014) * CBC W AUTO DIFFERENTIAL(Performed 12/08/2014) * AFSHIN BLOOD SCREEN W/REFLEX TITER(Performed 12/08/2014) * CBC W AUTO DIFFERENTIAL(Performed 12/08/2014) * XR HAND LEFT 3VW OR MORE(Performed 12/08/2014) * XR HAND RIGHT 3VW OR MORE(Performed 12/08/2014) * FUNGUS ASHER - POINT OF CARE (AMB) SLU(Performed 10/28/2011) * PARACENTESIS ABDOMEN (PERCUTANEOUS) Performed for Other ascites * PARACENTESIS ABDOMEN (PERCUTANEOUS) Performed for Other ascites * PARACENTESIS ABDOMEN (PERCUTANEOUS) Performed for Other ascites * TRANSFUSE RED BLOOD CELL LEUKOREDUCED UNIT(S) Results * ENDOSCOPY, COLON, SCREENING (02/13/2024 9:29 AM RADIOSONDE OPERATOR) Report Endoscopy POC Endoscopy Department Report _ Patient Name: Sharon Carbajal ?Procedure Date: 02/13/2024 9:29 AM ? Date of : 1965 Classification: Outpatient ?Gender: Female Ethnicity: Not or ? Race: White _ Providers: ?Tahmina Llamas MD, Talya Morrison MD (Fellow) Referring MD: ? Amor Arboleda DO, WING-KIN SYN, MD PhD Procedure: ?Colonoscopy Indications: ?Screening for [...] malignant ?neoplasm of colon CPT copyright 2021 [employer]. All rights reserved. The codes documented in this report are preliminary and upon knockdown worker review may be revised to meet current compliance requirements. Tahmina Llamas MD 02/13/2024 10:08:28 AM This report has been signed electronically. Note Initiated On: 02/13/2024 9:29 AM Number of Addenda: 0 ? [facility] ? [address] [place] [address] [facility] 02/13/2024 9:29 AM RADIOSONDE OPERATOR Tahmina Llamas MD GI PROCEDURE ORDERAB LES [facility] * US TIPS W ABDOMEN LIMITED (08/22/2023 11:57 AM CDT) Only the most recent of10 resultswithin the time period is included. Anatomical Region Laterality Modality Abdomen Ultrasound 08/22/2023 1:30 PM CDT Impressions 08/22/2023 4:24 PM CDT Impression: Hepatic cirrhosis without sonographic evidence of discrete ulceration. Nonobstructive nephrolithiasis within the right kidney measuring up to 0.37 m. Liver Visualization Score B: Moderate limitations. US-1 Negative. Repeat surveillance US in 6 months. No evidence of TIPS malfunction. The left portal vein is not well visualized on this examination. Report drafted by Jade Muller Dr (resident). Janeth Whitlock MD have personally reviewed and interpreted this examination/study. 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 Findings Liver Visualization Score: Moderate limitations in liver visualization Liver Morphology: The liver has a coarse echotexture and nodular surface. Liver Observations: None. Liver Doppler: Proximal TIPS velocity: 142 cm/s (previously 177 cm/s) Middle TIPS velocity: 143 cm/s (previously 121 cm/s) Distal TIPS velocity: 90 cm/s (previously 124 cm/s) The TIPS is patent. The left portal vein is not visualized on this exam.. The main portal vein is dilated measuring 1.8 cm in diameter with a velocity of 27.3 cm/s. The right and middle hepatic veins are patent with normal waveforms. The left hepatic vein is not visualized. The proper hepatic artery is patent with normal arterial waveform and resistive index of 0.78. Bile Ducts: The common bile duct is nondilated, measuring 6 mm. No intrahepatic or extrahepatic biliary dilation. Gallbladder: The gallbladder is absent. Ascites: No ascites is present. Spleen: The spleen measures 10 cm in length. Pancreas: The pancreas is obscured by overlying bowel gas. Right Kidney: The right kidney measures 12.2 cm in length. Limited views of the right kidney reveal no evidence of hydronephrosis. Nonobstructing nephrolithiasis within the right kidney measuring up to 0.3 cm. No discrete mass identified. Other: Left pleural effusion is partially visualized. 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 Findings Liver Visualization Score: Moderate limitations in liver visualization Liver Morphology: The liver has a coarse echotexture and nodular surface. Liver Observations: None. Liver Doppler: Proximal TIPS velocity: 142 cm/s (previously 177 cm/s) Middle TIPS velocity: 143 cm/s (previously 121 cm/s) Distal TIPS velocity: 90 cm/s (previously 124 cm/s) The TIPS is patent. The left portal vein is not visualized on thisexam.. The main portal vein is dilated measuring 1.8 cm in diameter with a velocity of 27.3 cm/s. The right and middle hepatic veins are patentwith normal waveforms. The left hepatic vein is not visualized. The proper hepatic artery is patent with normal arterial waveform and resistiveindex of 0.78. Bile Ducts: The common bile duct is nondilated, measuring 6 mm. No intrahepatic or extrahepatic biliary dilation. Gallbladder: The gallbladder is absent. Ascites: No ascites is present. Spleen: The spleen measures 10 cm in length. Pancreas: The pancreas is obscured by overlying bowel gas. Right Kidney: The right kidney measures 12.2 cm in length. Limited views of the right kidney reveal no evidence of hydronephrosis. Nonobstructingnephrolithiasis within the right kidney measuring up to 0.3 cm. No discrete mass identified. Other: Left pleural effusion is partially visualized. Impression: Hepatic cirrhosis without sonographic evidence of discrete ulceration. Nonobstructive nephrolithiasis within the right kidney measuring up to0.37 m. Liver Visualization Score B: Moderate limitations. US-1 Negative. Repeat surveillance US in 6 months. No evidence of TIPS malfunction. The left portal vein is not well visualized on this examination. Report drafted by Jade Muller Dr (resident). Janeth Whitlock MD have personally reviewed and interpreted this examination/study. > Interpreting Provider: Janeth Hoover MD on 08/22/2023 4:24 PM Dewey Villaseñor MD US ORDERABLES * (ABNORMAL) PT-INR [facility] (06/19/2023 1:21 PM CDT) Only the most recent of121 resultswithin the time period is included. PT 17.3(H) 12.1 - 14.8 Seconds 06/19/2023 2:34 PM CDT [facility] INR 1.5 See Comment 06/19/2023 2:34 PM CDT [facility] Comment:The suggested therap eutic range for standard coumadin (warfarin) therapy is an INR of 2.0-3.0. For high-risk patients (Mechanical Mitral Valve Prosthesis, etc.), the suggested prophylactic therapeutic range is an INR of 2.5-3.5. Blood BLOOD SPECIMEN / Unknown Lab Venipuncture / Unknown 06/19/2023 1:21 PM CDT 06/19/2023 2:11 PM CDT Dewey Villaseñor MD LAB - COAGULATION OR DERABLES Performing Organization Address City/State/[facility] Co de Phone Number [facility] [address] [place] [address], [facility] [phone] * (ABNORMAL) VITAMIN D 25-HYDROXY (06/19/2023 1:21 PM CDT) Only the most recent of2 resultswithin the time period is included. Vitamin D, 25 Hydroxy 11.7(L) 30.0 - 80.0 ng/mL 06/19/2023 3:01 PM CDT [facility] Comment: The recommendations for 25-Hydroxy Vitamin D clinical decision points are as follows: ? Deficient: ? <20.0 ng/mL ? Insufficient: ? 20.0 - 29.9 ng/mL ? Sufficient: ? 30.0 - 100.0 ng/mL ? Potential Toxicity: ??>100 ng/mL Reference: The Endocrine Society Clinical Practice Guidelines. 2011 If the 25-Hydroxy Vitamin D results are inconsitent with clinical evidence, it is recommended that follow-up testing using a method such as LC/MS/MS be performed to confirm the result. ? Blood BLOOD SPECIMEN / Unknown Lab Venipuncture / Unknown 06/19/2023 1:21 PM CDT 06/19/2023 2:12 PM CDT Dewey Villaseñor MD LAB - CHEMISTRY CORNELIA GAVIN Performing Organization Address City/State/[facility] Co de Phone Number [address] [address], [facility] [phone] * ALPHA FETOPROTEIN BLOOD TUMOR MARKER (06/19/2023 1:21 PM CDT) Only the most recent of10 resultswithin the time period is included. Alpha-Fetoprote in Tumor Marker 2.2 <=8.3 ng/mL 06/19/2023 2:57 PM CDT [facility] Comment: AFP values will vary depending on testing procedure used. Results are not comparable across different methods. AFP values obtained by [facility] using an Erazo Alinity Immunoassay. Blood BLOOD SPECIMEN / Unknown Lab Venipuncture / Unknown 06/19/2023 1:21 PM CDT 06/19/2023 2:11 PM CDT Dewey Villaseñor MD LAB - CHEMISTRY CORNELIA GAVIN [facility] [address] [place] [address], [facility] [phone] * (ABNORMAL) CBC W/ DIFFERENTIAL (06/19/2023 1:21 PM CDT) Only the most recent of128 resultswithin the time period is included. WBC 5.0 4.0 - 10.7 x10E9/L 06/19/2023 2:16 PM [facility] RBC Count 3.52(L) 3.90 - 5.20 x10E12/L 06/19/2023 2:16 PM [facility] Hemoglobin 9.2(L) 11.9 - 15.8 g/dL 06/19/2023 2:16 PM [facility] Hematocrit 28.4(L) 34.8 - 46.1 % 06/19/2023 2:16 PM [facility] MCV 80.7 80.0 - 98.0 fL 06/19/2023 2:16 PM [facility] MCH 26.1(L) 26.7 - 33.6 pg 06/19/2023 2:16 PM [facility] MCHC 32.4 31.7 - 36.3 g/dL 06/19/2023 2:16 PM [facility] RDW-CV 19.3(H) 11.3 - 14.8 % 06/19/2023 2:16 PM [facility] Platelet Count 342 150 - 420 x10E9/L 06/19/2023 2:16 PM [facility] MPV 10.9 7.8 - 11.4 fL 06/19/2023 2:16 PM [facility] Neutrophil % 51.2 41.0 - 74.0 % 06/19/2023 2:16 PM [facility] Lymphocyte % 21.5 17.0 - 47.0 % 06/19/2023 2:16 PM [facility] Monocyte % 19.5(H) 3.0 - 11.0 % 06/19/2023 2:16 PM [facility] Eosinophil % 6.4 0.0 - 7.0 % 06/19/2023 2:16 PM CDT [facility] Basophil % 1.2 0.0 - 1.6 % 06/19/2023 2:16 PM T [facility] Immature Granulocytes % 0.2 0.0 - 1.0 % 06/19/2023 2:16 PM T [facility] Neutrophil Absolute 2.57 1.60 - 7.50 x10E9/L 06/19/2023 2:16 PM T [facility] Lymphocyte Absolute 1.08 1.00 - 4.40 x10E9/L 06/19/2023 2:16 PM [facility] Monocyte Absolute 0.98 0.15 - 1.00 x10E9/L 06/19/2023 2:16 PM [facility] Eosinophil Absolute 0.32 0.00 - 0.60 x10E9/L 06/19/2023 2:16 PM [facility] Basophil Absolute 0.06 0.00 - 0.13 x10E9/L 06/19/2023 2:16 PM [facility] Blood BLOOD SPECIMEN / Unknown Lab Venipuncture / Unknown 06/19/2023 1:21 PM CDT 06/19/2023 2:11 PM CDT Dewey Villaseñor MD LAB - HEMATOLOGY ORD ERABLES [address] [address], [facility] [phone] * (ABNORMAL) COMPREHENSIVE METABOLIC PANEL (06/19/2023 1:21 PM CDT) Only the most recent of143 resultswithin the time period is included. BUN 9 7 - 26 mg/dL 06/19/2023 2:44 PM T [facility] Creatinine 0.51(L) 0.56 - 0.96 mg/dL 06/19/2023 2:44 PM T [facility] Sodium 138 136 - 145 mmol/L 06/19/2023 2:44 PM T [facility] Potassium 4.1 3.5 - 4.5 mmol/L 06/19/2023 2:44 PM [facility] Chloride 113(H) 98 - 107 mmol/L 06/19/2023 2:44 PM [facility] CO2 19(L) 22 - 29 mmol/L 06/19/2023 2:44 PM [facility] Glucose 74 70 - 115 mg/dL 06/19/2023 2:44 PM [facility] Calcium 8.5 8.4 - 10.2 mg/dL 06/19/2023 2:44 PM [facility] Protein Total 6.7 6.0 - 8.3 g/dL 06/19/2023 2:44 PM [facility] Albumin 2.3(L) 3.4 - 5.0 g/dL 06/19/2023 2:44 PM [facility] Bilirubin Total 1.2 0.2 - 1.2 mg/dL 06/19/2023 2:44 PM [facility] Alkaline Phosphatase 130 40 - 150 U/L 06/19/2023 2:44 PM [facility] ALT 22 5 - 55 U/L 06/19/2023 2:44 PM [facility] AST 65(H) 5 - 34 U/L 06/19/2023 2:44 PM [facility] Anion Gap 6 6 - 16 06/19/2023 2:44 PM [facility] BUN/Creatinine Ratio 18 7 - 23 06/19/2023 2:44 PM [facility] Osmolality Calculated 283 275 - 295 mOsm/kg 06/19/2023 2:44 PM [facility] Albumin/Globulin Ratio 0.5(L) 1.1 - 2.3 06/19/2023 2:44 PM [facility] eGFR by CKD-EPI >90 >=90 mL/min/1.7 3 m2 06/19/2023 2:44 PM [facility] Blood BLOOD SPECIMEN / Unknown Lab Venipuncture / Unknown 06/19/2023 1:21 PM CDT 06/19/2023 2:12 PM T Dewey Villaseñor MD LAB - CHEMISTRY ORDCristopher GAVIN Performing Organization Address [facility]/ZIP Co de Phone Number [address] [address], [facility] [phone] * PHOSPHORUS BLOOD (06/05/2023 6:09 AM CDT) Only the most recent of83 resultswithin the time period is included. Phosphorus 2.9 2.9 - 5.1 mg/dL 06/05/2023 7:34 AM CDT [facility] Blood BLOOD SPECIMEN / Unknown Lab Venipuncture / Unknown 06/05/2023 6:09 AM CDT 06/05/2023 7:01 AM CDT Jose Guadalupe Morales MD LAB - CHEMISTRY CORNELIA GAVIN Performing Organization Address [facility] Co de Phone Number [address] [address], [facility] [phone] * MAGNESIUM BLOOD (06/05/2023 6:09 AM CDT) Only the most recent of113 resultswithin the time period is included. Magnesium 1.6 1.6 - 2.6 mg/dL 06/05/2023 7:34 AM CDT [facility] Blood BLOOD SPECIMEN / Unknown Lab Venipuncture / Unknown 06/05/2023 6:09 AM CDT 06/05/2023 7:01 AM CDT Jose Guadalupe Morales MD LAB - CHEMISTRY CORNELIA GAVIN Performing Organization Address [facility]/ZIP Co de Phone Number [address] [address], [place] [phone] * (ABNORMAL) GLUCOSE - POINT OF CARE (06/04/2023 12:02 PM CDT) Only the most recent of267 resultswithin the time period is included. Glucose WB/POC 118(H) 70 - 115 mg/dL 06/04/2023 12:06 PM CDT [facility] Specimen Type Cap Fingerstick 2023 12:06 PM CDT [facility] Blood BLOOD SPECIMEN / Unknown 06/04/2023 12:02 PM CDT 06/04/2023 12:06 PM CDT Douglas Gomez MD LAB - POINT OF CARE ORDERABLES [facility] [address] [place] [address], [facility] [phone] * CHARMAINE-WHALEY VIRUS QUANT BLOOD STL (06/04/2023 4:59 AM CDT) EBV Quant by PCR, Interp Not detected Not detected 06/05/2023 2:19 PM CDT [facility] Specimen Type Plasma 06/05/2023 2:19 PM CDT [facility] Blood BLOOD SPECIMEN / Unknown Venipuncture / Unknown 06/04/2023 4:59 AM CDT 06/04/2023 5:03 AM CDT Narrative [facility] - 06/05/2023 2:19 PM CDT DNA isolated from the plasma was analyzed in a qPCR assay to detect and quantify Charmaine-Whaley DNA. An internal control is included to evaluate for PCR inhibition. The quantitative range of this assay is 500 IU/mL to 5,000,000 IU/mL. Values below 500 IU/mL will be reported as Detected (<500 IU/mL). ?? This test was developed and its performance characteristics determined by [facility]. ??It has not been cleared or approved by the U.S. Food and Drug Administration. ??The FDA has determined that such clearance or approval is not necessary. ??The test is used for clinical purposes. ??It should not be regarded as investigational or for research. ??This laboratory is certified under the Clinical Laboratory Improvement Amendments of 1988(CLIA-88) as qualified to perform high complexity clinical laboratory testing. Douglas Gomez MD LAB - CHEMISTRY CORNELIA GAVIN [facility] [address] [place] [address], [facility] [phone] * HIV-1 HIV-2 ANTIBODY + HIV P24 AG PANEL (06/04/2023 4:59 AM CDT) Pathologist [facility] HIV Antigen/Antibod y 1 & 2 Non-reacti ve Non-react bryn 06/04/2023 6:11 AM CDT [facility] Comment:No Laboratory eviden ce of HIV infection. Blood BLOOD SPECIMEN / Unknown Venipuncture / Unknown 06/04/2023 4:59 AM CDT 06/04/2023 5:03 AM CDT Douglas Gomez MD LAB - CHEMISTRY CORNELIA GAVIN Performing Organization Address City/[facility]/ZIP Co de Phone Number [address] [address], [facility] [phone] * RHEUMATOID FACTOR BLOOD QUANTITATIVE (06/04/2023 4:59 AM CDT) Only the most recent of3 resultswithin the time period is included. Pathologist [facility] Rheumatoid Factor <15 <30 IU/mL 06/04/2023 5:52 AM CDT [facility] Rheumatoid Factor Screen Negative Negative 06/04/2023 5:52 AM CDT [facility] Blood BLOOD SPECIMEN / Unknown Venipuncture / Unknown 06/04/2023 4:59 AM CDT 06/04/2023 5:03 AM CDT Douglas Gomez MD LAB - CHEMISTRY CORNELIA GAVIN Performing Organization Address City/[facility]/ZIP Co de Phone Number [address] [address], [place] [phone] * (ABNORMAL) C-REACTIVE PROTEIN (06/04/2023 4:59 AM CDT) Only the most recent of4 resultswithin the time period is included. Pathologist [facility] C-Reactive Protein 8.1(H) <=0.5 mg/dL 06/04/2023 5:58 AM CDT [facility] Blood BLOOD SPECIMEN / Unknown Venipuncture / Unknown 06/04/2023 4:59 AM CDT 06/04/2023 5:24 AM CDT Douglas Gomez MD LAB - CHEMISTRY CORNELIA GAVIN [facility] [address] [address], [facility] [phone] * AFSHIN BLOOD SCREEN W/REFLEX TITER (06/04/2023 4:59 AM CDT) Only the most recent of4 resultswithin the time period is included. AFSHIN IgG None Detected None Detected 06/06/2023 5:52 AM CDT [employer] ([facility]) Comment: If suspicion of connective tissue disease is strong and AFSHIN EIA is negative, consider testing for AFSHIN by IFA ([id number]). INTERPRETIVE INFORMATION: Anti-Nuclear Antibodies (AFSHIN), IgG by AMRIK Antinuclear Antibodies (AFSHIN), IgG by AMRIK: AFSHIN specimens are screened using enzyme-linked immunosorbent assay (AMRIK) methodology. All AMRIK results reported as Detected are further tested by indirect fluorescent assay (IFA) using HEp-2 substrate with an IgG-specific conjugate. The AFSHIN AMRIK screen is designed to detect antibodies against dsDNA, histones, SS-A (Ro), SS-B (La), Velez, Velez/VOTING MACHINE REPAIRER, Scl-70, Antonina-1, centromeric proteins, other antigens extracted from the HEp-2 cell nucleus. AFSHIN AMRIK assays have been reported to have lower sensitivities than AFSHIN IFA for systemic autoimmune rheumatic diseases (SARD). Negative results do not necessarily rule out SARD. Performed By: [facility] [address] [place] [address] [place] Administrator: Ric Blackmon MD, PhD CLIA Number: [id number] Blood BLOOD SPECIMEN / Unknown Venipuncture / Unknown 06/04/2023 4:59 AM CDT 06/04/2023 5:03 AM CDT Douglas Gomez MD LAB - CHEMISTRY CORNELIA GAVIN [employer] [facility]) [address] * ERYTHROCYTE SEDIMENTATION RATE (06/04/2023 4:59 AM CDT) Only the most recent of4 resultswithin the time period is included. Erythrocyte Sedimentation Rate Westergren 13 0 - 30 MM/HR 06/04/2023 5:51 AM CDT [facility] Blood BLOOD SPECIMEN / Unknown Venipuncture / Unknown 06/04/2023 4:59 AM CDT 06/04/2023 5:24 AM CDT Douglas Gomez MD LAB - HEMATOLOGY ORD ERABLES [address] [address], [facility] [phone] * (ABNORMAL) FERRITIN (06/04/2023 4:59 AM CDT) Only the most recent of4 resultswithin the time period is included. Ferritin 309(H) 13 - 204 ng/mL 06/04/2023 6:11 AM CDT [facility] Blood BLOOD SPECIMEN / Unknown Venipuncture / Unknown 06/04/2023 4:59 AM CDT 06/04/2023 5:03 AM CDT Douglas Gomez MD LAB - CHEMISTRY ORDE RABMASOUD Performing Organization Address City/[facility]/ZIP Co de Phone Number [address] [address], [place] [phone] * XR PANOREX (06/03/2023 6:36 PM CDT) Only the most recent of2 resultswithin the time period is included. Anatomical Region Laterality Modality Head Radiographic Allie ging 06/04/2023 3:28 PM CDT Impressions 06/04/2023 4:08 PM CDT IMPRESSION: Severe dental disease with a periapical lucency noted at tooth #28 concerning for abscess. Report dictated by Manuel Cannon DO (radiology transporter). I, Licha Shepard MD have personally reviewed and interpreted this examination/study. > Interpreting Provider: Licha Shepard MD on 06/04/2023 4:08 PM Narrative 06/04/2023 4:08 PM CDT PROCEDURE: ??XR PANOREX, DATE/TIME OF EXAM: ??06/03/2023 6:36 PM, LOCATION ??[facility] INDICATION: R50.9: Fever, unspecified fever cause ADDITIONAL CLINICAL INFORMATION: Ordering Provider Reason For Exam: ??Fever of unknown origin COMPARISON: None. FINDINGS: The maxilla is edentulous. There are a few remaining mandibular teeth. Multiple dental restorations are identified. Multiple dental caries noted of tooth number 20, 21, 26, 27, and 28. Periapical lucency noted at tooth #28. No acute mandibular fracture is identified. Both temporomandibular joints are intact. Procedure Note Licha Shepard MD - 06/04/2023 PROCEDURE: XR PANOREX, DATE/TIME OF EXAM: 06/03/2023 6:36 PM[facility]: R50.9: Fever, unspecified fever cause ADDITIONAL CLINICAL INFORMATION: Ordering Provider Reason For Exam: Fever of unknown origin COMPARISON: None. FINDINGS: The maxilla is edentulous. There are a few remaining mandibular teeth. Multiple dental restorations are identified. Multiple dental cariesnoted of tooth number 20, 21, 26, 27, and 28. Periapical lucency noted attooth #28. No acute mandibular fracture is identified. Both temporomandibular joints are intact. IMPRESSION: Severe dental disease with a periapical lucency noted at tooth #28 concerning for abscess. Report dictated by Manuel Cannon DO (radiology transporter). I, Licha Shepard MD have personally reviewed and interpreted this examination/study. > Interpreting Provider: Licha Shepard MD on 06/04/2023 4:08 PM Douglas Gomez MD DIAGNOSTIC IMAGING O RDERABLES * CULTURE BLOOD (06/03/2023 4:31 PM CDT) Only the most recent of14 resultswithin the time period is included. 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 2.Grossly unchanged left greater than right moderate bilateral pleural effusions, mild diffuse body wall edema are suggestive of fluid overload. 3.Hepatic cirrhosis with sequela of portal hypertension including upper abdominal varices and ascites. > Dictated by Jessica White MD (radiology transporter). I, Carlos Alberto Russo have personally reviewed and interpreted this examination/study. > Interpreting Provider: Carlos Alberto Russo on 06/03/2023 10:50 PM Narrative 06/03/2023 10:50 PM CDT EXAMINATION: CT CHEST ABDOMEN PELVIS W CONT DATE/TIME OF EXAM: ??06/03/2023 4:13 PM, LOCATION ??[facility] HISTORY: R50.9: Fever, unspecified fever cause fever of unknown origin COMPARISON: CTA abdomen dated 05/12/2023, CT chest without contrast dated 05/30/2023 TECHNIQUE: CT of the chest, abdomen, and pelvis was performed after the uneventful administration of 100 mL of Isovue 370 intravenous contrast according to standard protocol. Findings: Chest: Lines and tubes: None. Lower Neck and Axillae: The thyroid gland enhances homogenously. No abnormal supraclavicular or axillary lymphadenopathy is seen. Airway, Lungs and pleura: The trachea is patent. Grossly unchanged left greater than right moderate bilateral pleural effusions with adjacent compressive atelectasis. Probable superimposed pulmonary congestion. No suspicious pulmonary nodule is identified in the aerated lungs. No pneumothorax. Heart and Pericardium: The heart size is normal. No pericardial effusion is present. Mitral annular calcification. Mediastinum and Ilsa: No enlarged lymph nodes are present. No mediastinal mass is identified. Thoracic Vasculature: There is a left-sided three-vessel aortic arch. The aorta and main pulmonary artery are normal in course and caliber. Abdomen/pelvis: Liver: Cirrhotic hepatic morphology. No focal hepatic observation. TIPS appears to be patent. The main portal vein is enlarged measuring 1.8 cm in diameter (series 2 image 1026), compared with portal hypertension. Multiple gastric varices embolization coils are present in the upper abdomen around the stomach and in the splenic hilum. There are again gastroepiploic varices along the gastric greater curvature. Replaced left hepatic artery arising from the left gastric artery. Gallbladder and Bile Ducts: The gallbladder is surgically removed. The common bile duct is nondilated. Focal intrahepatic biliary dilatation in the hepatic segment 8 abutting the TIPS (series 2 image 87). Spleen: Large area of splenic infarction related to splenic artery embolization with small residual areas of normal splenic enhancement. Pancreas: Normal. ?? Adrenals: Normal in morphology without mass lesion. Kidneys: The kidneys enhance symmetrically. There is no evidence of renal calculus or hydronephrosis. Gastrointestinal: The distal esophagus and stomach appear normal. There is colonic diverticulosis without evidence of diverticulitis. Otherwise the small bowel and colon are normal in caliber without evidence of wall thickening or obstruction. The appendix is normal. Mesentery/Peritoneum/Retroperitoneum: Small ascites. No free intraperitoneal air. Numerous subcentimeter retroperitoneal lymph nodes are likely reactive. Bladder: Normal. Reproductive Organs: The uterus is surgically absent. No adnexal mass. Vasculature: Scattered atherosclerotic calcification of the aorta and its branch vessels. No evidence of aneurysm. Bones: No suspicious lytic or blastic lesions. The visible osseous structures are intact. Schmorl's nodes are seen in the spine. Soft tissues: Mild diffuse body wall edema. Small ascites containing umbilical hernia. Procedure Note Carlos Alberto Russo MD - 06/03/2023 EXAMINATION: CT CHEST ABDOMEN PELVIS W CONT DATE/TIME OF EXAM: 06/03/2023 4:13 PM, LOCATION [facility] HISTORY: R50.9: Fever, unspecified fever cause fever of unknown origin COMPARISON: CTA abdomen dated 05/12/2023, CT chest without contrast dated 05/30/2023 TECHNIQUE: CT of the chest, abdomen, and pelvis was performed after the uneventful administration of 100 mL of Isovue 370 intravenous contrast according to standard protocol. Findings: Chest: Lines and tubes: None. Lower Neck and Axillae: The thyroid gland enhances homogenously. No abnormal supraclavicular or axillary lymphadenopathy is seen. Airway, Lungs and pleura: The trachea is patent. Grossly unchanged left greater than rightmoderate bilateral pleural effusions with adjacent compressive atelectasis.Probable superimposed pulmonary congestion. No suspicious pulmonary nodule is identified in the aerated lungs. No pneumothorax. Heart and Pericardium: The heart size is normal. No pericardial effusion is present. Mitral annular calcification. Mediastinum and Ilsa: No enlarged lymph nodes are present. No mediastinal mass is identified. Thoracic Vasculature: There is a left-sided three-vessel aortic arch. The aorta and main pulmonary artery are normal in course and caliber. Abdomen/pelvis: Liver: Cirrhotic hepatic morphology. No focal hepatic observation. TIPS appearsto be patent. The main portal vein is enlarged measuring 1.8 cm in diameter (series 2 image 1026), compared with portal hypertension. Multiplegastric varices embolization coils are present in the upper abdomen around the stomach and in the splenic hilum. There are again gastroepiploic varices along the gastric greater curvature. Replaced left hepatic arteryarising from the left gastric artery. Gallbladder and Bile Ducts: The gallbladder is surgically removed. The common bile duct isnondilated. Focal intrahepatic biliary dilatation in the hepatic segment 8 abuttingthe TIPS (series 2 image 87). Spleen: Large area of splenic infarction related to splenic artery embolization with small residual areas of normal splenic enhancement. Pancreas: Normal. Adrenals: Normal in morphology without mass lesion. Kidneys: The kidneys enhance symmetrically. There is no evidence of renalcalculus or hydronephrosis. Gastrointestinal: The distal esophagus and stomach appear normal. There is colonic diverticulosis without evidence of diverticulitis. Otherwise the small bowel and colon are normal in caliber without evidence of wallthickening or obstruction. The appendix is normal. Mesentery/Peritoneum/Retroperitoneum: Small ascites. No free intraperitoneal air. Numerous subcentimeter retroperitoneal lymph nodes are likely reactive. Bladder: Normal. Reproductive Organs: The uterus is surgically absent. No adnexal mass. Vasculature: Scattered atherosclerotic calcification of the aorta and its branch vessels. No evidence of aneurysm. Bones: No suspicious lytic or blastic lesions. The visible osseous structuresare intact. Schmorl's nodes are seen in the spine. Soft tissues: Mild diffuse body wall edema. Small ascites containing umbilical hernia. Impression: 1.Postprocedural sequela of splenic artery embolization with infarctionof large areas of the spleen with minimal residual areas of abnormal enhancement. 2.Grossly unchanged left greater than right moderate bilateral pleural effusions, mild diffuse body wall edema are suggestive of fluidoverload. 3.Hepatic cirrhosis with sequela of portal hypertension including upper abdominal varices and ascites. > Dictated by Jessica White MD (radiology transporter). I, Carlos Alberto Russo have personally reviewed and interpreted this examination/study. > Interpreting Provider: Carlos Alberto Russo on 06/03/2023 10:50 PM [address] MD [address] ORDERABLES * (ABNORMAL) DIFFERENTIAL MANUAL (06/02/2023 4:05 PM CDT) Only the most recent of24 resultswithin the time period is included. Neutrophil % 77(H) 41 - 74 % 06/02/2023 5:29 PM [facility] Lymphocyte % 9(L) 17 - 47 % 06/02/2023 5:29 PM [facility] Monocyte % 7 3 - 11 % 06/02/2023 5:29 PM [facility] Eosinophil % 7 0 - 7 % 06/02/2023 5:29 PM [facility] Neutrophil Absolute 6.31 1.60 - 7.50 x10E9/L 06/02/2023 5:29 PM [facility] Lymphocyte Absolute 0.74(L) 1.00 - 4.40 x10E9/L 06/02/2023 5:29 PM [facility] Monocyte Absolute 0.57 0.15 - 1.00 x10E9/L 06/02/2023 5:29 PM [facility] Eosinophil Absolute 0.57 0.00 - 0.60 x10E9/L 06/02/2023 5:29 PM [facility] RBC Morphology REVIEWED 06/02/2023 5:29 PM [facility] [place] Cells MODERATE(A) (none) 06/02/2023 5:29 PM CDT [facility] Macrocytosis MANY(A) (none) 06/02/2023 5:29 PM CDT [facility] Schistocytes FEW(A) (none) 06/02/2023 5:29 PM CDT [facility] Blood BLOOD SPECIMEN / Unknown Lab Venipuncture / Unknown 06/02/2023 4:05 PM CDT 06/02/2023 4:30 PM CDT Dagoberto Walker MD LAB - HEMATOLOGY ORD ERABLES [facility] [address] [place] [address], [facility] [phone] * VAS BILATERAL VENOUS DUPLEX UE (06/02/2023 9:59 AM CDT) Anatomical Region Laterality Modality Upper Extremity Intravascular Ul trasound 06/02/2023 9:04 AM CDT Narrative Procedure Note Regan Murillo MD - 06/02/2023 Dagoberto Walker MD VASCULAR LAB ORDERAB LES * XR CHEST 1VW PORTABLE (06/01/2023 1:50 PM CDT) Only the most recent of21 resultswithin the time period is included. Anatomical Region Laterality Modality Chest Radiographic Allie ging 06/01/2023 2:13 PM CDT Narrative 06/01/2023 11:10 PM CDT PROCEDURE: ??XR CHEST 1VW PORTABLE, DATE/TIME OF EXAM: ??06/01/2023 1:51 PM, LOCATION ??[facility] INDICATION: R50.9: Fever, unspecified fever cause ADDITIONAL CLINICAL INFORMATION: Ordering Provider Reason For Exam: ??improvement to atelectasis COMPARISON: X-ray chest 04/29/2023 and 05/31/2023. TECHNIQUE: Frontal radiograph of the chest. FINDINGS/IMPRESSION: *Partially visualized left upper quadrant embolization coils. Bilateral moderate pleural effusion with adjacent atelectasis. There is pulmonary vascular congestion. No pneumothorax is visible. The cardiac silhouette remains mildly enlarged. The mediastinal silhouette is normal. Report dictated by Thad Millan MD, (Box Order Person). Johan Whitlock MD have personally reviewed and interpreted this examination/study. > Interpreting Provider: Johan Alvarez MD on 06/01/2023 11:10 PM Procedure Note Johan Alvarez MD - 06/01/2023 PROCEDURE: XR CHEST 1VW PORTABLE, DATE/TIME OF EXAM: 06/01/2023 1:51PM, LOCATION [facility] INDICATION: R50.9: Fever, unspecified fever cause ADDITIONAL CLINICAL INFORMATION: Ordering Provider Reason For Exam: improvement to atelectasis COMPARISON: X-ray chest 04/29/2023 and 05/31/2023. TECHNIQUE: Frontal radiograph of the chest. FINDINGS/IMPRESSION: *Partially visualized left upper quadrant embolization coils. Bilateral moderate pleural effusion with adjacent atelectasis. There is pulmonary vascular congestion. No pneumothorax is visible. The cardiac silhouette remains mildly enlarged. The mediastinal silhouette isnormal. Report dictated by Thad Millan MD, (Box Order Person). Johan Whitlock MD have personally reviewed and interpreted this examination/study. > Interpreting Provider: Johan Alvarez MD on 06/01/2023 11:10 PM Dagoberto Walker MD DIAGNOSTIC IMAGING O RDERABLES * (ABNORMAL) URINALYSIS REFLEX MICROSCOPIC REFLEX CULTURE (05/31/2023 11:49 AM CDT) Only the most recent of3 resultswithin the time period is included. Color UA Yellow Straw, Yellow 05/31/2023 12:19 PM CDT [facility] Clarity UA Slt Cloudy(A) Clear 05/31/2023 12:19 PM CDT [facility] Specific [place] UA 1.006 1.005 - 1.030 05/31/2023 12:19 PM CDT [facility] pH UA 6.0 5.0 - 8.0 pH 05/31/2023 12:19 PM T [facility] Protein UA Negative Negative 05/31/2023 12:19 PM CDT [facility] Glucose UA Negative Negative 05/31/2023 12:19 PM CDT [facility] Ketone UA Negative Negative 05/31/2023 12:19 PM CDT [facility] Bilirubin UA Negative Negative 05/31/2023 12:19 PM CDT [facility] Blood UA Negative Negative 05/31/2023 12:19 PM CDT [facility] Nitrite UA Negative Negative 05/31/2023 12:19 PM CDT [facility] Leukocyte Esterase Negative Negative 05/31/2023 12:19 PM CDT [facility] Urobilinogen UA 2.0(A) Negative mg/dL 05/31/2023 12:19 PM CDT [facility] Comment UA Microscopic not indicated. 05/31/2023 12:19 PM CDT [facility] Urine URINE SPECIMEN OBTAINED BY CLEAN CATCH PROCEDURE / Unknown Collection / Unknown 05/31/2023 11:49 AM CDT 05/31/2023 11:55 AM CDT Narrative [facility] - 05/31/2023 12:19 PM CDT Dagoberto Walker MD LAB - URINALYSIS ORD ERABLES [facility] [address] [place] [address], [facility] [phone] * CT CHEST WO CONTRAST (05/30/2023 12:14 PM CDT) Anatomical Region Laterality Modality Chest Computed Tomogra phy 05/30/2023 1:05 PM CDT Impressions 05/30/2023 2:05 PM CDT Impression: 1.Moderate bilateral pleural effusions with associated compressive atelectasis, left greater than right. Underlying pneumonia cannot be fully excluded. 2.Masslike consolidation in the left lower lobe, corresponding to the abnormality seen on the chest x-ray, appears wedge-shaped with a wide pleural base on the coronal and sagittal images likely representing focal atelectasis. Recommend follow-up to resolution. 3.Mild interlobular septal thickening within the bilateral lung apices, which may reflect mild pulmonary edema. 4.At least moderate volume ascites partially visualized. > Dictated by Graham Kessler MD (radiology transporter). I, E. Isin Akduman, MD have personally reviewed and interpreted this examination/study. > Interpreting Provider: Janeth Hoover MD on 05/30/2023 2:05 PM Narrative 05/30/2023 2:05 PM CDT PROCEDURE: ??CT CHEST WO CONTRAST, DATE/TIME OF EXAM: ??05/30/2023 12:14 PM, LOCATION ??[facility] INDICATION: R07.9: Chest pain, unspecified type ADDITIONAL CLINICAL INFORMATION: Ordering Provider Reason For Exam: ??chest pain, mass on CXR left hilum COMPARISON: Chest radiograph dated 05/28/2023. TECHNIQUE: CT of the chest was performed without contrast according to standard protocol. Findings: Evaluation of visceral and vascular structures is degraded due to lack of intravenous contrast administration. Lower Neck and Axillae: Normal. Lungs: There are moderate bilateral pleural effusions with associated compressive atelectasis, left greater than right. Underlying pneumonia cannot be fully excluded. A masslike consolidation is noted in the left lower lobe (image 41, series 4, image 63, series 5, image 28, series 6) which appears wedge-shaped with a wide pleural base on the coronal and sagittal images likely representing focal atelectasis. There is mild intralobular septal thickening within the bilateral lung apices, which can be seen in setting of mild pulmonary edema. No pneumothorax is visualized. Heart and Pericardium: The cardiac chambers are normal in size. No pericardial fluid or thickening is present. Mediastinum and Ilsa: Multiple subcentimeter nodes are present. For reference, there is a 0.6 cm short axis prevascular lymph node (series 3 image 33). Thoracic Vasculature: No vascular abnormality is present. Bones and Chest Wall: Bone windows demonstrate no suspicious lytic or blastic lesions. The visible osseous structures are intact. Degenerative changes are seen in the spine. Upper Abdomen: There is moderate volume ascites. A TIPS stent is partially visualized. Multiple embolization coils are present within the left upper quadrant of the abdomen. The spleen appears enlarged. Otherwise, the visible portions of the upper abdominal organs are normal. Procedure Note Teetee Hoover MD - 05/30/2023 PROCEDURE: CT CHEST WO CONTRAST, DATE/TIME OF EXAM: 05/30/2023 12:14PM, LOCATION [facility] INDICATION: R07.9: Chest pain, unspecified type ADDITIONAL CLINICAL INFORMATION: Ordering Provider Reason For Exam: chest pain, mass on CXR left hilum COMPARISON: Chest radiograph dated 05/28/2023. TECHNIQUE: CT of the chest was performed without contrast according to standard protocol. Findings: Evaluation of visceral and vascular structures is degraded due to lackof intravenous contrast administration. Lower Neck and Axillae: Normal. Lungs: There are moderate bilateral pleural effusions with associatedcompressive atelectasis, left greater than right. Underlying pneumonia cannot befully excluded. A masslike consolidation is noted in the left lower lobe(image 41, series 4, image 63, series 5, image 28, series 6) which appears wedge-shaped with a wide pleural base on the coronal and sagittal images likely representing focal atelectasis. There is mild intralobular septal thickening within the bilateral lung apices, which can be seen insetting of mild pulmonary edema. No pneumothorax is visualized. Heart and Pericardium: The cardiac chambers are normal in size. No pericardial fluid orthickening is present. Mediastinum and Ilsa: Multiple subcentimeter nodes are present. For reference, there is a 0.6cm short axis prevascular lymph node (series 3 image 33). Thoracic Vasculature: No vascular abnormality is present. Bones and Chest Wall: Bone windows demonstrate no suspicious lytic or blastic lesions. The visible osseous structures are intact. Degenerative changes are seen inthe spine. Upper Abdomen: There is moderate volume ascites. A TIPS stent is partially visualized. Multiple embolization coils are present within the left upper quadrantof the abdomen. The spleen appears enlarged. Otherwise, the visibleportions of the upper abdominal organs are normal. Impression: 1.Moderate bilateral pleural effusions with associated compressive atelectasis, left greater than right. Underlying pneumonia cannot befully excluded. 2.Masslike consolidation in the left lower lobe, corresponding to the abnormality seen on the chest x-ray, appears wedge-shaped with a wide pleural base on the coronal and sagittal images likely representingfocal atelectasis. Recommend follow-up to resolution. 3.Mild interlobular septal thickening within the bilateral lung apices, which may reflect mild pulmonary edema. 4.At least moderate volume ascites partially visualized. > Dictated by Graham Kessler MD (radiology transporter). Janeth Whitlock MD have personally reviewed and interpreted this examination/study. > Interpreting Provider: Janeth Hoover MD on 05/30/2023 2:05 PM Dagoberto Walker MD CT ORDERABLES * BLASTOMYCES ANTIGEN QUANT BY EIA URINE (05/29/2023 1:51 PM CDT) Blastomyces Antigen Urine Not Detected 06/02/2023 12:57 PM CDT [facility] ([facility]) Blastomyces Dermatitidis EIA Interp Not Detected Not Detected 06/02/2023 12:57 PM CDT [facility] ([facility]) Comment: INTERPRETIVE INFORMATION:Blastomyces Ag Quant by [employer], ? Urine The quantitative range of this assay is 1.25-200 U/mL. Antigen concentrations ??less than 1.25 U/mL or greater than 200 U/mL fall outside the linear range of the assay and cannot be accurately quantified. This EIA test should be used in conjunction with other diagnostic procedures, including microbiological culture, histological examination of biopsy samples, serology and/or radiographic evidence, to aid in the diagnosis of blastomycosis. Cross-reactivity with other endemic mycoses (Histoplasma and Coccidioides) may occur. Positive test results should be correlated with other clinical findings and relevant exposure history. This test was developed and its performance characteristics determined by [facility]. It has not been cleared or approved by the US Food and Drug Administration. This test was performed in a CLIA certified laboratory and is intended for clinical purposes. Performed By: [facility] [address] [place] [address] [place] Administrator: Ric Blackmon MD, PhD CLIA Number: [id number] Urine URINE SPECIMEN OBTAINED BY CLEAN CATCH PROCEDURE / Unknown Collection / Unknown 05/29/2023 1:51 PM CDT 05/29/2023 2:04 PM CDT Dagoberto Walker MD LAB - MICROBIOLOGY O RDERABLES [facility]) [address] [place] [address], [facility] * ASPERGILLUS GALACTOMANNAN AG BAL/BLOOD (05/29/2023 1:51 PM CDT) [facility] Aspergillus Antigen BAL/Serum 0.08 0.00 - 0.49 Index 06/02/2023 4:11 PM CDT [facility] ([facility]) Other BLOOD SPECIMEN / Unknown Collection / Unknown 05/29/2023 1:51 PM CDT 05/29/2023 2:03 PM CDT Narrative [facility] ([facility]) - 06/02/2023 4:11 PM CDT Performed at: ??[address] ??[id number] Runner On: Lia Perez MD, Phone: ??[phone] Dagoberto Walker MD LAB - CHEMISTRY CORNELIA GAVIN [facility]) [address] [place] [address] * AQKZ-X-QBMBDZ (1,3) (FUNGITELL) (05/29/2023 1:51 PM CDT) [facility] Ztyl-a-Bndwmz 43 pg/mL 05/30/2023 3:02 PM CDT [facility] ([facility]) Interpretation Ujxf-f-Gqissj Negative Negative 05/30/2023 3:02 PM CDT [employer] [facility]) Comment: INTERPRETIVE INFORMATION: (1,3)-ccud-V-xohyjb (Fungitell) ??Less than 31 pg/mL ................... Negative ??31-59 pg/mL .......................... Negative ??60-79 pg/mL .......................... Indeterminate ??Greater than or equal to 80 pg/mL .... Positive The Fungitell test is indicated for presumptive diagnosis of fungal infection and should be used in conjunction with other diagnostic procedures. This test does not detect certain fungal species such as Cryptococcus, which produce very low levels of (1,3)-fckd-J-dbredq. This test will not detect the zygomycetes, such as Absidia, Mucor, and Rhizopus, which are not known to produce (1,3)-romg-M-jcqpiq. In addition, the yeast phase of Blastomyces dermatitidis produces little (1,3)-exht-Z-hqaeee and may not be detected by the assay. Performed By: [facility] [address] [place] [address] [place] Administrator: Ric Blackmon MD, PhD CLIA Number: [id number] Blood BLOOD SPECIMEN / Unknown Venipuncture / Unknown 05/29/2023 1:51 PM CDT 05/29/2023 2:04 PM CDT Dagoberto Walker MD LAB - CHEMISTRY ORDCristopher GAVIN Performing Organization Address [facility]/ZIP Co de Phone Number [facility] ([facility]) [address] [place] [address] * CULTURE BLOOD FUNGUS (05/29/2023 1:51 PM CDT) [facility] Culture No fungus isolated BIJU 07/07/2023 2:22 PM CDT [facility] Blood PERIPHERAL BLOOD / Unknown Venipuncture / Unknown 05/29/2023 1:51 PM CDT 05/29/2023 2:04 PM CDT Dagoberto Walker MD LAB - MICROBIOLOGY O RDERABLES Performing Organization Address City/[facility]/ZIP Co de Phone Number [facility] [address] [place] [phone] * TROPONIN-I HIGH SENSITIVE (05/28/2023 11:20 PM CDT) [facility] Troponin I High Sensitive <3 <=14 ng/L 05/29/2023 12:16 AM CDT [facility] Blood BLOOD SPECIMEN / Unknown Venipuncture / Unknown 05/28/2023 11:20 PM CDT 05/28/2023 11:43 PM CDT Dagoberto Walker MD LAB - CHEMISTRY CORNELIA GAVIN Performing Organization Address [facility]/ZIP Co de Phone Number [facility] [address] [place] [address], [facility] [phone] * EKG 12-LEAD (05/28/2023 9:02 PM CDT) Only the most recent of13 resultswithin the time period is included. [facility] Ventricular Rate 97 BPM [facility] Atrial Rate 97 BPM [facility] P-R Interval 114 ms [facility] QRS Duration ms 90 ms [facility] Q-T Interval ms 370 ms [facility] QTC Calculation (Bezet) 469 ms [facility] Calculated P Loving 42 degrees [facility] Calculated R Loving 18 degrees [facility] Calculated T Loving 30 degrees [facility] Interpretation EKG NORMAL SINUS RHYTHM NORMAL ECG WHEN COMPARED WITH ECG OF 13-MAY-2023 15:57, BORDERLINE CRITERIA FOR ANTERIOR INFARCT ARE NO LONGER PRESENT BORDERLINE CRITERIA FOR ANTEROLATERAL INFARCT ARE NO LONGER PRESENT NONSPECIFIC T WAVE ABNORMALITY NO LONGER EVIDENT IN ANTEROLATERAL LEADS Confirmed by MD BAN, SHIREEN ([id number]) on 05/29/2023 1:22:35 PM [facility] 05/28/2023 9:02 PM CDT 05/29/2023 1:22 PM CDT Dagoberto Walker MD ECG ORDERABLES Performing Organization Address [facility] Co de Phone Number [facility] * VAS BILATERAL VENOUS DUPLEX LE (05/27/2023 1:35 PM CDT) Anatomical Region Laterality Modality Lower Extremity Intravascular Ul trasound 05/27/2023 1:26 PM CDT Narrative Procedure Note Scottie Donahue MD - 05/27/2023 Dagoberto Walker MD VASCULAR LAB ORDERAB LES * FL SWALLOWING FUNCTION STUDY (05/27/2023 9:51 AM CDT) Anatomical Region Laterality Modality Chest Radiographic Allie ging 05/27/2023 10:3 4 AM CDT Impressions 05/27/2023 2:58 PM CDT IMPRESSION: Fluoroscopy was provided for a procedure performed by Speech Therapy. Please see the Speech Therapy report for interpretation. > Dictated by Jerad Garcia D.O. - Diagnostic Box Order Person. Julio César Whitlock MD have personally reviewed and interpreted this examination/study. > Interpreting Provider: Julio César Jmaes MD on 05/27/2023 2:58 PM Narrative 05/27/2023 2:58 PM CDT PROCEDURE: ??FL SWALLOWING FUNCTION STUDY, DATE/TIME OF EXAM: ??05/27/2023 9:54 AM, LOCATION ??[facility] INDICATION: R13.13: Pharyngeal dysphagia ADDITIONAL CLINICAL INFORMATION: Ordering Provider Reason For Exam: ??further workup of patient's dyphagia Technologist Note: Additional: None. COMPARISON: None. FLUOROSCOPY TIME: ??1.0 minutes; Number of images: ??1893. Procedure Note Julio César James MD - 05/27/2023 PROCEDURE: FL SWALLOWING FUNCTION STUDY, DATE/TIME OF EXAM: 05/27/2023 9:54 AM, LOCATION [facility] INDICATION: R13.13: Pharyngeal dysphagia ADDITIONAL CLINICAL INFORMATION: Ordering Provider Reason For Exam: further workup of patient's dyphagia Technologist Note: Additional: None. COMPARISON: None. FLUOROSCOPY TIME: 1.0 minutes; Number of images: 1893. IMPRESSION: Fluoroscopy was provided for a procedure performed by Speech Therapy. Please see the Speech Therapy report for interpretation. > Dictated by Jerad Garcia D.O. - Diagnostic Box Order Person. Julio César Whitlock MD have personally reviewed and interpreted this examination/study. > Interpreting Provider: Julio César James MD on 05/27/2023 2:58 PM Jose Guadalupe Morales MD FLUOROSCOPY ORDERABL ES * (ABNORMAL) URINE MICROSCOPIC ONLY REFLEX TO CULTURE (05/27/2023 6:59 AM CDT) Reflex Status Culture to follow 05/27/2023 7:23 AM CDT [facility] WBC UA 6-10(A) None Seen, 0-5 /HPF 05/27/2023 7:23 AM CDT [facility] Squamous Epithelial Cells UA >20(A) None Seen, 0-2, 3-5 /HPF 05/27/2023 7:23 AM CDT [facility] Mucus UA 3+ /LPF 05/27/2023 7:23 AM CDT [facility] Urine URINE SPECIMEN OBTAINED BY CLEAN CATCH PROCEDURE / Unknown Collection / Unknown 05/27/2023 6:59 AM CDT 05/27/2023 7:04 AM CDT Narrative [facility] - 05/27/2023 7:23 AM CDT Dagoberto Walker MD LAB - URINALYSIS ORD ERABLES Performing Organization Address City/[facility]/ZIP Co de Phone Number [facility] [address] [place] [address], [facility] [phone] * CULTURE URINE (05/27/2023 6:59 AM CDT) Only the most recent of2 resultswithin the time period is included. Culture Urine <10,000 CFU/mL urogenital sahara BIJU 05/28/2023 12:23 PM CDT [facility] Urine URINE SPECIMEN OBTAINED BY CLEAN CATCH PROCEDURE / Unknown Collection / Unknown 05/27/2023 6:59 AM CDT 05/27/2023 7:23 AM CDT Dagoberto Walker MD LAB - MICROBIOLOGY O RDERABLES Performing Organization Address City/[facility]/ZIP Co de Phone Number [facility] [address] [place] [address], [facility] [phone] * PATHOLOGY TISSUE (05/26/2023 9:19 AM CDT) Only the most recent of5 resultswithin the time period is included. Case Report Surgical Pathology Report ? Case: [id number] ? Authorizing Provider: ??Nelda, Quita, DO ?Collected: ? 05/26/2023 09:19 AM ? Ordering Location: ? [facility] ?Received: ?05/26/2023 11:09 AM ? Pathologist: ? Lucy Salmon MD ? Specimen: ?Gastric, Gastric Ulceration Bx ? 05/27/2023 8:26 PM [facility] Final Diagnosis Stomach, gastric ulceration, biopsy (A): - Ulcer and reactive changes - Negative for H. pylori 05/27/2023 8:26 PM [facility] Microscopic Description and Comment The gastric ulceration biopsy is two fragments of tissue, one which is ulcerated granulation tissue, and one which is more intact mucosa with mild reactive changes. There is no background of dense chronic active gastritis, and an immunostain for H. pylori is negative. The granulation tissue has prominent reactive inflammation and even spindled stromal cells; an immunostain for CD117 is negative in the spindled cells. Immunostains performed on block A1, with appropriately staining controls). 05/27/2023 8:26 PM [facility] Clinical History This patient is a 57-year-old woman with history of iron deficiency anemia secondary to chronic blood loss. Operative procedure/findings: Erosive gastropathy with no bleeding and no stigmata of recent bleeding in the proximal body, biopsied. 05/27/2023 8:26 PM [facility] Gross Description The requisition and specimen(s) are identified with the patient's name, Sharon Carbajal. Received in formalin, specimen A , are two pale-rosa biopsies, 0.2 and 0.3 cm, submitted in toto in cassette A1. GW 05/27/2023 8:26 PM CDT [facility] Pathologist Location at [facility] 05/27/2023 8:26 PM CDT [facility] Disclaimer The performance characteristics of all immunohistochemical and indirect immunofluorescence stains (if any) cited in this report were determined by the [facility]. Some of these tests were developed by our own laboratory and have not been cleared or approved by the US Food and Drug Administration. The FDA does not require this test to go through premarket FDA review. These tests are used for clinical purposes. They should not be regarded as investigational or for research. This laboratory is certified under the Clinical Laboratory Improvement Amendments (CLIA) as qualified to perform high complexity clinical laboratory testing. This case has been personally reviewed and interpreted by the attending (teaching) pathologist. 05/27/2023 8:26 PM CDT [facility] Embedded Images 05/27/2023 8:26 PM CDT [facility] Biopsy, NOS GASTRIC CONTENTS SPECIMEN / Unknown 05/26/2023 9:19 AM CDT 05/26/2023 11:09 AM CDT Comment:Pre-op diagnosis: G I Bleed Quita Lutz DO LAB - PATHOLOGY/CYTO LOGY ORDERABLES Performing Organization Address City/State/[facility] Co de Phone Number [facility] [address] [place], [place] [id number] [place] [address] * EGD (05/26/2023 8:42 AM CDT) Report Endoscopy POC Endoscopy Department Report _ Patient Name: Sharon Carbajal ?Procedure Date: 05/26/2023 8:42 AM ? Date of : 1965 Classification: Inpatient ? Gender: Female Ethnicity: Not or ? Race: White _ Providers: ?Quita Lutz DO, Laith Numan (Fellow) Referring MD: ? Procedure: ?Upper GI endoscopy Indications: ?Iron deficiency anemia secondary to chronic blood ?loss Medications: ?Monitored Anesthesia Care Description of Procedure: [...] satisfactory ?condition to undergo the procedure. ?After obtaining informed consent, the endoscope was ?passed under direct vision. Throughout the ?procedure, the patient's blood pressure, pulse, and ?oxygen saturations were monitored continuously. The ?[id number]-[id number] was introduced through the mouth, and ?advanced to the second part of duodenum. The upper ?GI endoscopy was accomplished without difficulty. ?The patient tolerated the procedure well. ? Findings: ? A single mucosal nodule was found in the lower third of the esophagus. ? Normal mucosa on top, most likely related to scarring. ? Multiple superficial large erosions with no bleeding and no stigmata of ? recent bleeding were found in the gastric body. Biopsies were taken with ? a cold forceps for histology. This improved from previous exam. ? The examined duodenum was normal. ? Estimated Blood Loss: ? Estimated blood loss was minimal. Complications: ?No immediate complications. Impression: ? - Nodule found in the esophagus. Normal mucosa on ?top, most likely related to scarring. ?- Erosive gastropathy with no bleeding and no ?stigmata of recent bleeding in the proximal body. ?Biopsied. This is markedly improved from previous ?exam. ?- Normal examined duodenum. Recommendation: ? - [facility]. ?- May consider initiating clear liquid diet today ?and advance as tolerated. ?- Continue present medications. ?- Await pathology results. ? Attending Participation: ??I was present and participated during the entire ?procedure, including non-gambino portions. ? Procedure Code(s): ? --- Professional --- ? 55175, Esophagogastroduo denoscopy, flexible, transoral; with biopsy, ? single or multiple Diagnosis Code(s): ?--- Professional --- ?K22.89, Other specified disease of esophagus ?K31.89, Other diseases of stomach and duodenum ?D50.0, Iron deficiency anemia secondary to blood ?loss (chronic) CPT copyright 2021 [employer]. All rights reserved. The codes documented in this report are preliminary and upon knockdown worker review may be revised to meet current compliance requirements. Quita Lutz DO 05/26/2023 9:35:00 AM This report has been signed electronically. Note Initiated On: 05/26/2023 8:42 AM Number of Addenda: 0 ? [facility] ? [address] 05/26/2023 8:42 AM CDT Kyle Marks MD GI PROCEDURE ORDERAB LES [facility] * (ABNORMAL) RENAL FUNCTION PANEL (05/25/2023 5:23 AM CDT) Only the most recent of15 resultswithin the time period is included. BUN 16 7 - 26 mg/dL 05/25/2023 6:09 AM [facility] Creatinine 0.64 0.56 - 0.96 mg/dL 05/25/2023 6:09 AM [facility] Sodium 143 136 - 145 mmol/L 05/25/2023 6:09 AM [facility] Potassium 3.4(L) 3.5 - 4.5 mmol/L 05/25/2023 6:09 AM [facility] Chloride 109(H) 98 - 107 mmol/L 05/25/2023 6:09 AM [facility] CO2 28 22 - 29 mmol/L 05/25/2023 6:09 AM [facility] Glucose 96 70 - 115 mg/dL 05/25/2023 6:09 AM [facility] Albumin 2.3(L) 3.4 - 5.0 g/dL 05/25/2023 6:09 AM [facility] Calcium 8.3(L) 8.4 - 10.2 mg/dL 05/25/2023 6:09 AM [facility] Phosphorus 2.7(L) 2.9 - 5.1 mg/dL 05/25/2023 6:09 AM [facility] Anion Gap 6 6 - 16 05/25/2023 6:09 AM [facility] BUN/Creatinine Ratio 25(H) 7 - 23 05/25/2023 6:09 AM [facility] Osmolality Calculated 297(H) 275 - 295 mOsm/kg 05/25/2023 6:09 AM [facility] eGFR by CKD-EPI >90 >=90 mL/min/1.7 3 m2 05/25/2023 6:09 AM [facility] Blood BLOOD SPECIMEN / Unknown Venipuncture / Unknown 05/25/2023 5:23 AM CDT 05/25/2023 5:38 AM CDT Jim Rangel MD LAB - CHEMISTRY ORDERABLES [facility] [address] [place] [address], [facility] [phone] * XR ABDOMEN KUB PORTABLE (05/24/2023 4:31 AM CDT) Only the most recent of10 resultswithin the time period is included. Anatomical Region Laterality Modality Abdomen Radiographic Allie ging 05/26/2023 7:50 AM CDT Impressions 05/26/2023 9:16 AM CDT IMPRESSION: 1.Centralisation of the bowel loops is nonspecific but may be seen in large volume ascites. 2.No evidence of bowel distention. Report dictated by Jade Muller Dr, MD (radiology transporter). IAmerica MD have personally reviewed and interpreted this examination/study. > Interpreting Provider: America Castro MD on 05/26/2023 9:16 AM Narrative 05/26/2023 9:16 AM CDT PROCEDURE: ??XR ABDOMEN KUB PORTABLE, DATE/TIME OF EXAM: ??05/24/2023 4:31 AM, LOCATION ??[facility] INDICATION: E87.20: Lactic acidosis R13.10: Dysphagia, unspecified type ADDITIONAL CLINICAL INFORMATION: Ordering Provider Reason For Exam: ??Abdominal Cramping Technologist Note: Additional: COMPARISON: KUB dated 05/22/2023 FINDINGS: Embolization coils overlie the left upper quadrant. Single view of the abdomen demonstrates centralization of the bowel loops which may be seen in large volume ascites. No mass effect or pathologic calcifications. No acute osseous abnormalities. Consolidation in the left lung base. Procedure Note America Castro MD - 05/26/2023 PROCEDURE: XR ABDOMEN KUB PORTABLE, DATE/TIME OF EXAM: 05/24/2023 4:31AM, LOCATION [facility] INDICATION: E87.20: Lactic acidosis R13.10: Dysphagia, unspecified type ADDITIONAL CLINICAL INFORMATION: Ordering Provider Reason For Exam: Abdominal Cramping Technologist Note: Additional: COMPARISON: KUB dated 05/22/2023 FINDINGS: Embolization coils overlie the left upper quadrant. Single view of the abdomen demonstrates centralization of the bowelloops which may be seen in large volume ascites. No mass effect or pathologic calcifications. No acute osseous abnormalities. Consolidation in the left lung base. IMPRESSION: 1.Centralisation of the bowel loops is nonspecific but may be seen inlarge volume ascites. 2.No evidence of bowel distention. Report dictated by Jade Muller Dr, MD (radiology transporter). I, America Castro MD have personally reviewed and interpreted this examination/study. > Interpreting Provider: America Castro MD on 49:16 AM Jim Rangel MD DIAGNOSTIC IMAG ING ORDERABLES * IR PICC LINE INSERT (05/22/2023 1:55 PM CDT) Anatomical Region Laterality Modality Chest, Upper Extremity Other Narrative 05/22/2023 9:49 AM CDT Blaise Morales RN ? 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 At the OSH Hgb was 7.0. ?? Indication: Nutritional Support Grievance And Appeals Specialist: Blaise Morales RN Procedures: 1. ??Limited extremity ultrasound to assess vascular patency 2. ??Ultrasound guided access of the Right ??cephalic vein. ?? 3. ??Placement of peripherally inserted central line with magnetic tracking and ECG tip positioning system ([email or web address]). Anesthesia: ??Local anesthesia with 4mL of 1% Lidocaine without epinephrine Procedure in detail: Type of line placed: Dual Lumen Power PICC The risks and benefits of PICC placement were explained to Family and Patient. ??The risks include discussed include pain, inadvertent arterial puncture, infection, blood clots, phlebitis, and cardiac arrhythmias. They were ??able to consent to the PICC insertion. ??Timeout and hand hygiene completed prior to procedure. ??Traffic was limited in the room during the procedure. Skin prepped with appropriate antibacterial solution prior to skin puncture. ??Maximum sterile barrier precautions were used including sterile gown and gloves, hat, mask, eye protection and a large sterile drape. Limited ultrasound of the the cephalic vein demonstrated patent and compressible vein. A ty scale image was documented. The patient was given local anesthesia with 4 milliliters of 1% Lidocaine without epinephrine. The cephalic vein was accessed using a micropuncture needle. The needle entry was documented. A ??0.018-inch guidewire was then advanced centrally. ??A small dermatotomy was made at the puncture site, and then the peel-away sheath was advanced into the vein. ??The length of the catheter was assessed with magnetic tracking and ECG tip positioning system. The PICC line pre-loaded with magnetic tip was then introduced through the peel-away sheath ??and advanced to the right atrium near the cavoatrial junction. ??The double lumen PICC was placed using the Seldinger technique with a ??Right Cephalic approach without complication. There was dark, non-pulsatile blood return in all ports and they were easily flushed with saline. The tip of the catheter was guided by the magnetic tracking and ECG tip positioning system ([email or web address]), ??The peel-away sheath was removed, and the PICC was secured to the skin with a engineered securement device. An overlying dressing was placed. PICC tip position was verified by ultrasound ECG device. ??This showed PICC tip in good position in the distal SVC. Reposition of the PICC was not indicated. The patient tolerated the procedure well. ??Patient Guide Booklet and Fact Sheet for preventing infection placed in chart for discharge packet. Reviewed with: patient and RN Complications: ??none. All the ports were aspirated and flushed to assure patency. ??The patient tolerated this procedure without apparent immediate complication. Impression: ??Successful placement of ??42 cm PICC Fr: 4 F double lumen power PICC via ??the Right ??cephalic ??vein with tip in the cavo-atrial junction. The procedure was performed by Blaise Morales RN. The final image was reviewed by , Interventional Radiology Attending- Efraín Henderson MD The catheter can be used now. Jim Rangel MD IR ORDERABLES * (ABNORMAL) BASIC METABOLIC PANEL (CALCIUM TOTAL) (05/20/2023 3:14 PM CDT) Only the most recent of11 resultswithin the time period is included. [facility] Signature BUN 13 7 - 26 mg/dL 05/20/2023 3:54 PM CDT [facility] Creatinine 0.71 0.56 - 0.96 mg/dL 05/20/2023 3:54 PM CDT [facility] Sodium 139 136 - 145 mmol/L 05/20/2023 3:54 PM CDT [facility] Potassium 3.6 3.5 - 4.5 mmol/L 05/20/2023 3:54 PM [facility] Chloride 114(H) 98 - 107 mmol/L 05/20/2023 3:54 PM [facility] CO2 19(L) 22 - 29 mmol/L 05/20/2023 3:54 PM [facility] Glucose 100 70 - 115 mg/dL 05/20/2023 3:54 PM [facility] Calcium 7.4(L) 8.4 - 10.2 mg/dL 05/20/2023 3:54 PM [facility] Anion Gap 6 6 - 16 05/20/2023 3:54 PM [facility] BUN/Creatinine Ratio 18 7 - 23 05/20/2023 3:54 PM [facility] Osmolality Calculated 288 275 - 295 mOsm/kg 05/20/2023 3:54 PM [facility] eGFR by CKD-EPI >90 >=90 mL/min/1.7 3 m2 05/20/2023 3:54 PM [facility] Blood BLOOD SPECIMEN / Unknown Venipuncture / Unknown 05/20/2023 3:14 PM CDT 05/20/2023 3:23 PM CDT Jim Rangel MD LAB - CHEMISTRY ORDERABLES [facility] [address] [place] [address], [facility] [phone] * (ABNORMAL) BLOOD GASES ART + COOX PANEL (05/20/2023 2:36 PM CDT) Only the most recent of9 resultswithin the time period is included. pH Arterial 7.44 7.35 - 7.45 pH 05/20/2023 3:03 PM [facility] pO2 Arterial 164(H) 80 - 100 mmHg 05/20/2023 3:03 PM [facility] pCO2 Arterial 28(L) 35 - 45 mmHg 3:03 PM [facility] HCO3 Arterial 19.0(L) 20.0 - 30.0 mmol/L 05/20/2023 3:03 PM [facility] BE Arterial -4.4(L) -2.0 - 2.0 mmol/L 05/20/2023 3:03 PM [facility] Oxyhemoglobin Arterial 96.5 % 05/20/2023 3:03 PM [facility] Dexoyhemoglobin (HHB) % <1.0 % 05/20/2023 3:03 PM [facility] Methemoglobin 1.8 0.0 - 2.0 % 05/20/2023 3:03 PM [facility] Carboxyhemoglobin 1.7 0.0 - 2.0 % 2023 3:03 PM [facility] O2 Content Arterial 11.8 Interpret within clinical context ml/dL 05/20/2023 3:03 PM [facility] Hemoglobin by COOX 8.4(L) 12.0 - 15.6 g/dL 05/20/2023 3:03 PM [facility] O2 Saturation Arterial 100 90 - 100 % 05/20/2023 3:03 PM [facility] FI O2 Arterial 4.0 % 05/20/2023 3:03 PM [facility] Comment:NC Blood, arterial ARTERIAL BLOOD SPECIMEN / Unknown Arterial Puncture / Unknown 05/20/2023 2:36 PM CDT 05/20/2023 2:56 PM CDT Narrative [facility] - 05/20/2023 3:03 PM CDT Carboxyhemoglobin Normal Concentration: Non-smokers: 0-2%; Smokers: 0-9%; Toxic: >20% Jim Rangel MD LAB - BLOOD GAS ES ORDERABLES [facility] [address] [place] [address], [facility] [phone] * MRSA DNA PCR (05/20/2023 10:14 AM CDT) Pathologist [facility] MRSA DNA by PCR Not detected Not detected 05/20/2023 5:05 PM T [facility] Microbiology SPECIMEN FROM NASAL FOSSAE / Unknown Collection / Unknown 05/20/2023 10:14 AM CDT 05/20/2023 10:18 AM CDT Narrative [facility] - 05/20/2023 5:05 PM CDT Methicillin-resistant Staphylococcus aureus (MRSA) DNA is not detected (presumed not colonized with MRSA). Jim Rangel MD LAB - MICROBIOL OGY ORDERABLES Performing Organization Address [facility] Co de Phone Number [facility] [address] [place] [address], [facility] [phone] * CULTURE SPUTUM+GRAM STAIN (05/20/2023 9:35 AM CDT) Culture Rare normal oropharyngeal sahara BIJU 05/22/2023 6:27 AM CDT [facility] Gram Stain <10 per low power field Squamous epithelial cells 05/22/2023 6:27 AM CDT [facility] Gram Stain >= 25 per low power field Polymorphonuclear cells 05/22/2023 6:27 AM CDT [facility] Gram Stain Rare Gram-positive cocci 05/22/2023 6:27 AM CDT [facility] Gram Stain Rare Gram-negative bacilli 05/22/2023 6:27 AM CDT [facility] Microbiology SPUTUM / Unknown Collection / Unknown 05/20/2023 9:35 AM CDT 05/20/2023 10:59 AM CDT Jim Rangel MD LAB - MICROBIOL OGY ORDERABLES Performing Organization Address [facility] Co de Phone Number [facility] [address] [place] [address], [facility] [phone] * MRI BRAIN WO CONTRAST (05/18/2023 5:17 PM CDT) Anatomical Region Laterality Modality Head Magnetic Resonan ce 05/19/2023 9:05 AM CDT Impressions 05/19/2023 9:22 AM CDT IMPRESSION: No acute intracranial abnormality. T1 hyperintensity in the basal ganglia could be sequela of hepatic encephalopathy. > Interpreting Provider: Viv Michel MD on 05/19/2023 9:22 AM Narrative 05/19/2023 9:22 AM CDT PROCEDURE: ??MRI BRAIN WO CONTRAST, DATE/TIME OF EXAM: ??05/18/2023 5:17 PM, LOCATION ??[facility] INDICATION: R41.82: Altered mental status, unspecified altered mental status type ADDITIONAL CLINICAL INFORMATION: Ordering Provider Reason For Exam: ??Evaluation of non-responsive state COMPARISON: None. TECHNIQUE: ?? MRI of the brain was performed without contrast according to standard protocol FINDINGS: No evidence of acute or chronic hemorrhage is identified. No evidence of acute cerebral infarction is seen. The ventricles are of normal size, shape, and morphology. No mass effect or midline shift is seen. Mild periventricular, subcortical white matter FLAIR hyperintensities are nonspecific, but can be seen in the setting of chronic small vessel ischemic disease. The corpus callosum and sella appear normal. The posterior fossa, brainstem, and craniocervical junction appear normal. There is mild T1 hyperintensity in the basal ganglia region could be sequela of hepatic encephalopathy. The visualized portions of the orbits, appear normal. Mild mucosal thickening in the paranasal sinuses. Near complete opacification of the mastoid air cells could be sequelae of intubated state.. Normal flow voids are demonstrated in the carotid arteries and basilar artery. The calvarium appears normal. There is diffusely decreased marrow signal on T1 images could be sequela blood dyscrasias like anemia Procedure Note Viv Michel MD - 05/19/2023 PROCEDURE: MRI BRAIN WO CONTRAST, DATE/TIME OF EXAM: 05/18/2023 5:17PM, LOCATION [facility] INDICATION: R41.82: Altered mental status, unspecified altered mental status type ADDITIONAL CLINICAL INFORMATION: Ordering Provider Reason For Exam: Evaluation of non-responsive state COMPARISON: None. TECHNIQUE: MRI of the brain was performed without contrast according to standard protocol FINDINGS: No evidence of acute or chronic hemorrhage is identified. No evidence of acute cerebral infarction is seen. The ventricles are of normal size, shape, and morphology. No mass effect or midline shift is seen. Mild periventricular, subcortical white matter FLAIR hyperintensities are nonspecific, but can be seen in the setting of chronic small vessel ischemic disease. The corpus callosum and sella appear normal. The posterior fossa, brainstem, and craniocervical junction appear normal. There is mild T1 hyperintensity in the basal ganglia region could be sequela of hepatic encephalopathy. The visualized portions of the orbits, appear normal. Mild mucosal thickening in the paranasal sinuses. Near complete opacification of the mastoid air cells could be sequelae of intubated state.. Normal flowvoids are demonstrated in the carotid arteries and basilar artery. Thecalvarium appears normal. There is diffusely decreased marrow signal on T1 images could be sequela blood dyscrasias like anemia IMPRESSION: No acute intracranial abnormality. T1 hyperintensity in the basalganglia could be sequela of hepatic encephalopathy. > Interpreting Provider: Viv Michel MD on 05/19/2023 9:22 AM Flaco Kasper MD MR ORDERABLES * (ABNORMAL) CBC W/O DIFFERENTIAL (05/18/2023 12:25 AM CDT) Only the most recent of103 resultswithin the time period is included. WBC 11.3(H) 4.0 - 10.7 x10E9/L 05/18/2023 12:41 AM [facility] RBC Count 2.86(L) 3.90 - 5.20 x10E12/L 05/18/2023 12:41 AM [facility] Hemoglobin 8.2(L) 11.9 - 15.8 g/dL 05/18/2023 12:41 AM [facility] Hematocrit 24.9(L) 34.8 - 46.1 % 05/18/2023 12:41 AM [facility] MCV 87.1 80.0 - 98.0 fL 05/18/2023 12:41 AM [facility] MCH 28.7 26.7 - 33.6 pg 05/18/2023 12:41 AM [facility] MCHC 32.9 31.7 - 36.3 g/dL 05/18/2023 12:41 AM [facility] RDW-CV 20.0(H) 11.3 - 14.8 % 05/18/2023 12:41 AM [facility] Platelet Count 125(L) 150 - 420 x10E9/L 05/18/2023 12:41 AM CDT [facility] MPV 11.1 7.8 - 11.4 fL 05/18/2023 12:41 AM CDT [facility] NRBC 3.0(H) <=0.0 /100 WBC 05/18/2023 12:41 AM CDT [facility] Blood BLOOD SPECIMEN / Unknown Venipuncture / Unknown 05/18/2023 12:25 AM CDT 05/18/2023 12:29 AM CDT Uziel Chacon MD LAB - HEMATOLOGY ORD ERABLES [facility] [address] [place] [address], [facility] [phone] * CT HEAD WO CONTRAST (05/17/2023 10:07 AM CDT) Only the most recent of2 resultswithin the time period is included. Anatomical Region Laterality Modality Head Computed Tomogra phy 05/17/2023 10:0 8 AM CDT Impressions 05/17/2023 10:13 AM CDT IMPRESSION: 1.No acute intracranial hemorrhage, midline shift, or significant mass effect. 2.Please note that MRI is more sensitive for parenchymal changes related to encephalopathy. > Interpreting Provider: Apryl Jarquin MD on 05/17/2023 10:13 AM Narrative 05/17/2023 10:13 AM CDT PROCEDURE: ??CT HEAD WO CONTRAST, DATE/TIME OF EXAM: ??05/17/2023 10:07 AM, LOCATION ??[facility] INDICATION: K76.82: Hepatic encephalopathy (HCC) EXAMINATION: Computed tomography (CT) of the head without contrast ADDITIONAL CLINICAL INFORMATION: Ordering Provider Reason For Exam: ??Acute mental change Technologist Note: ??None. Additional: ??None. ?? TECHNIQUE: CT of the head was performed without contrast according to standard protocol. CT dose reduction technique was used, including Automated Exposure Control. COMPARISON: ??CT of the head from 02/02/2023 FINDINGS: No acute intra- or extra-axial fluid collections are identified. The ventricles are of stable size, shape, and morphology. Subjective mild cerebral volume loss with prominence of the sulci, particularly along the frontal and to a lesser extent the parietal and temporal convexities. The basilar cisterns are patent. No mass effect or midline shift is seen. The ty-white matter differentiation is normal. Periventricular white matter hypoattenuation is indicative of chronic small vessel ischemic disease. There is vascular calcification of the carotid siphons. No acute calvarial fracture is identified. The orbits appear normal. There is mild paranasal sinus disease. Moderate mucosal thickening and retained secretions in the sphenoid sinuses. Scattered opacification in the ethmoid air cells Mild mucosal thickening in the remaining paranasal sinuses. Scattered opacification in the mastoid air cells bilaterally there is a small nodule in the right frontal scalp, likely a sebaceous cysts. Oral tube is partially imaged. Procedure Note Apryl Jarquin MD - 05/17/2023 PROCEDURE: CT HEAD WO CONTRAST, DATE/TIME OF EXAM: 05/17/2023 10:07 AM, LOCATION [facility] INDICATION: K76.82: Hepatic encephalopathy (HCC) EXAMINATION: Computed tomography (CT) of the head without contrast ADDITIONAL CLINICAL INFORMATION: Ordering Provider Reason For Exam: Acute mental change Technologist Note: None. Additional: None. TECHNIQUE: CT of the head was performed without contrast according to standard protocol. CT dose reduction technique was used, including Automated Exposure Control. COMPARISON: CT of the head from 02/02/2023 FINDINGS: No acute intra- or extra-axial fluid collections are identified. The ventricles are of stable size, shape, and morphology. Subjective mild cerebral volume loss with prominence of the sulci, particularly alongthe frontal and to a lesser extent the parietal and temporal convexities.The basilar cisterns are patent. No mass effect or midline shift is seen.The ty-white matter differentiation is normal. Periventricular whitematter hypoattenuation is indicative of chronic small vessel ischemic disease. There is vascular calcification of the carotid siphons. No acutecalvarial fracture is identified. The orbits appear normal. There is mildparanasal sinus disease. Moderate mucosal thickening and retained secretions inthe sphenoid sinuses. Scattered opacification in the ethmoid air cells Mild mucosal thickening in the remaining paranasal sinuses. Scattered opacification in the mastoid air cells bilaterally there is a smallnodule in the right frontal scalp, likely a sebaceous cysts. Oral tube is partially imaged. IMPRESSION: 1.No acute intracranial hemorrhage, midline shift, or significant mass effect. 2.Please note that MRI is more sensitive for parenchymal changes relatedto encephalopathy. > Interpreting Provider: Apryl Jarquin MD on 05/17/2023 10:13 AM Flaco Kasper MD CT ORDERABLES * (ABNORMAL) SLIDE SCAN HEMATOLOGY (05/17/2023 3:00 AM CDT) RBC Morphology REVIEWED 05/17/2023 4:24 AM CDT [facility] [place] Cells MODERATE(A) (none) 05/17/2023 4:24 AM CDT [facility] Polychromatic Cells MODERATE(A) (none) 05/17/2023 4:24 AM CDT [facility] Schistocytes FEW(A) (none) 05/17/2023 4:24 AM CDT [facility] Blood BLOOD SPECIMEN / Unknown Venipuncture / Unknown 05/17/2023 3:00 AM CDT 05/17/2023 3:07 AM CDT Uziel Chacon MD LAB - HEMATOLOGY ORD ERABLES [facility] [address] [place] [address], [facility] [phone] * EGD (05/15/2023 2:12 PM CDT) Report Endoscopy POC Endoscopy Department Report __ _ Patient Name: Sharon Carbajal ?Procedure Date: 05/15/2023 2:12 PM ? Date of : 1965 Classification: Inpatient ? Gender: Female Ethnicity: Not or ? Race: White __ _ Providers: ?Brittany Vegas MD Referring : ? Procedure: ?Upper GI endoscopy Indications: ?Acute post hemorrhagic anemia Medications: ?Propofol per Anesthesia Description of Procedure: Pre-Anesthesia Assessment: ?- Prior [...] anticoagulant or antiplatelet agents. ASA ?Grade Assessment: IV - A patient with severe ?systemic disease that is a constant threat to life. ?After reviewing the risks and benefits, the patient ?was deemed in satisfactory condition to undergo the ?procedure. ?- Prior Aspirin/ NSAID therapy: The patient has ?taken no aspirin or NSAID medications. ?After obtaining informed consent, the endoscope was ?passed under direct vision. Throughout the ?procedure, the patient's blood pressure, pulse, and ?oxygen saturations were monitored continuously. The ?[id number] was introduced through the mouth, and ?advanced to the second part of duodenum. The upper ?GI endoscopy was accomplished with ease. The ?patient tolerated the procedure well. ? Findings: ? Esophagogastric landmarks were identified: the Z-line was found at 40 ? cm, the gastroesophageal junction was found at 40 cm and the site of ? hiatal narrowing was found at 40 cm from the incisors. ? The examined esophagus was normal. No varices were seen today. ? Localized severe mucosal variance characterized by discoloration and ? ulceration was found in the gastric fundus. Purplish mucousa with ? friability and some superficial ulceration in fundus. No gastric varices ? were seen. No active bleeding or evidence of recent bleeding activity ? seen. ? The examined duodenum was normal. ? The cardia and gastric fundus were otherwise normal on retroflexion. ? Estimated Blood Loss: ? Estimated blood loss: none. Complications: ?No immediate complications. Impression: ? - Esophagogastric landmarks identified. ?- Normal esophagus. ?- Gastric mucosal variant. Possible Post ?embolization changes to mucousa. No enteral tube ?placed due to friability/ulcerati on of the proximal ?stomach. ?- Normal examined duodenum. ?- No specimens collected. Recommendation: ? - Return patient to ICU for ongoing care. ?- NPO today. ?- Continue present medications. ?- Liver recs. ? Attending Participation: ??I personally performed the entire procedure. ? Procedure Code(s): ? --- Professional --- ? 95770, Esophagogastroduode noscopy, flexible, transoral; diagnostic, ? including collection of specimen(s) by brushing or washing, when ? performed (separate procedure) Diagnosis Code(s): ?--- Professional --- ?K31.89, Other diseases of stomach and duodenum ?D62, Acute posthemorrhagic anemia CPT copyright 2021 [employer]. All rights reserved. The codes documented in this report are preliminary and upon knockdown worker review may be revised to meet current compliance requirements. ___ Brittany Vegas MD 05/15/2023 3:38:20 PM Note Initiated On: 05/15/2023 2:12 PM Number of Addenda: 0 ? [facility] ? [address] [place], [place] [id number] [place] [address] PROVATION 05/15/2023 2:12 PM CDT Brittany Vegas MD GI PROCEDURE ORDER [facility] * TRANSFUSE FRESH FROZEN PLASMA UNIT(S) (05/15/2023 11:14 AM CDT) Uziel Chacon MD NURSING - BLOOD PROD TRANSFUSION * ECHO COMPLETE W CONTRAST (05/15/2023 10:31 AM CDT) Only the most recent of3 resultswithin the time period is included. BSA [id number] m2 SSM CV FUJ I PACS LV biplane EF 71 54 - 74 % SSM CV FUJI PACS LV A2C EF 71 52 - 76 % SSM CV FUJ I PACS LV A4C EF 72 46 - 78 % SSM CV FUJ I PACS LV stroke vol BP 117.3 mL SSM CV FUJI PACS LV stroke vol BP index 48.6 mL/m2 SSM CV FUJI PACS LVOT stroke vol 116.83 mL SSM CV FUJI PACS LVOT stroke vol index 48.41 mL/m2 SSM CV FUJI PACS LV stroke vol 2D teich 142.537 ml SSM CV FUJI PACS LV Stroke Index 2D Teich 59.06 mL/m2 SSM CV FUJI PACS LV stroke vol index A4C MOD 116.368 ml/m2 SSM CV FUJI PACS LVIDd 6.02 3.8 - 5.2 cm SSM CV FUJI PACS LVIDs 3.12 2.2 - 3.5 cm SSM CV FUJI PACS IVSd 2D 1.157 0.6 - 0.9 cm SSM CV FUJI PACS LVPWd 1.16 0.6 - 0.9 cm SSM CV FUJI PACS Fractional Shortening 2D 44 28 - 44 % SSM CV FUJI PACS LV ESV BP 47.069 14 - 42 mL SSM CV FUJI PACS LV ESV index BP 19.5 8 - 24 mL/m2 SSM CV FUJI PACS LV ESV A2C 45.347 10 - 54 mL SSM CV FUJI PACS LV ESV index A2C 18.79 6 - 30 mL/m2 SSM CV FUJI PACS LV EDV BP 164.33 46 - 106 mL SSM CV FUJI PACS LV ESV A4C 47.938 12 - 60 mL SSM CV FUJI PACS LV ESV index A4C 19.86 7 - 35 mL/m2 [facility] CV FUJI PACS LV EDV index BP 68.1 29 - 61 mL/m2 [facility] CV FUJI PACS LV EDV A2C 163.088 41 - 133 mL SSM CV FUJI PACS LV EDV index A2C 67.57 26 - 74 mL/m2 SSM CV FUJI PACS LV EDV A4C 161.715 mL SSM CV FU JI PACS LV ESV 2D 38.559 14 - 42 mL SSM CV FUJI PACS LV EDV index A4C 67.01 30 - 82 mL/m2 SSM CV FUJI PACS LV ESV index 2D 15.98 8 - 24 mL/m2 SSM CV FUJI PACS LV EDV 2D 181.096 46 - 106 mL SSM CV FUJI PACS LV EDV index 2D 75.04 29 - 61 mL/m2 SSM CV FUJI PACS LVOT diam 2.2 cm SSM CV FUJ I PACS LVOT area 3.82 cm2 SSM CV FUJ I PACS LV RWT 0.387 SSM CV FUJ I PACS LV Miller A2C 9.432 cm SSM CV F UJI PACS LV Miller A4C 9.577 cm SSM CV F UJI PACS IVS/LVPW 0.994 SSM CV FUJ I PACS LV mass 2D 301.444 66 - 150 g SSM CV FUJI PACS LV mass index 2D 124.90 44 - 88 g/m2 SSM CV FUJI PACS MV E pk dulce 174.317 cm/s SSM CV F UJI PACS MV avg E/e' ratio 15.48 SS M CV FUJI PACS MV A pk dulce 151.083 cm/s SSM CV F UJI PACS MV E A ratio 1.15 SSM CV FUJI PACS MV E' lateral dulce 9.939 cm/s SS M CV FUJI PACS MV DT 201 ms SSM CV FUJ I PACS MV E' septal dulce 12.994 cm/s SSM CV FUJI PACS MV E/e' septal 13.415 SSM C V FUJI PACS MV E/e' lateral 17.538 SSM CV FUJI PACS LA vol BP 111.793 mL SSM CV FUJ I PACS TR pk dulce 320.8 cm/s SSM CV FUJ I PACS LVOT pk dulce 1.67 m/s SSM CV F UJI PACS LVOT mn dulce 0.89 m/s SSM CV F UJI PACS LVOT mn grad 4.2 mmHg SSM CV FUJI PACS LVOT Cardiac Output 15.425 l/min SSM CV FUJI PACS LVOT Cardiac Index 6.39 l/min/m2 SSM CV FUJI PACS LA vol index 46.3 16 - 34 mL/m2 SSM CV FUJI PACS LA size 5.029 2.7 - 3.8 cm SSM CV FUJI PACS LA vol BP A-L 120.358 mL SSM CV FUJI PACS RV-miller basal diam 3.6 2.5 - 4.1 cm SSM CV FUJI PACS RVIDd 3.1 cm SSM CV FUJ I PACS RVOT VTI 26.5 cm SSM CV FUJ I PACS TV S' dulce 19.992 cm/s SSM CV FUJ I PACS TAPSE 2.212 1.7 cm SSM CV FUJ I PACS RVOT pk dulce 1.27 m/s SSM CV F UJI PACS RA area 19.897 cm2 SSM CV FUJ I PACS AV mn grad 9 mmHg SSM CV FU JI PACS AV pk grad 19 mmHg SSM CV FU JI PACS AV mn dulce 1.37 m/s SSM CV FUJ I PACS AV pk dulce 2.18 m/s SSM CV FUJ I PACS AV VTI 39.332 cm SSM CV FUJ I PACS LVOT pk grad 11.206 mmHg SSM CV FUJI PACS LVOT VTI 30.618 cm SSM CV FUJ I PACS AV area cont VTI 3.0 cm2 SSM CV FUJI PACS AV area pk dulce 2.9 cm2 SSM C V FUJI PACS AV Doppler dulce index pk dulce 0.768 SSM CV FUJI PACS Dimensionless Index 0.778 SSM CV FUJI PACS MV mn grad 6 mmHg SSM CV FU JI PACS MV pk grad 12 mmHg SSM CV FU JI PACS MV mn dulce 1.19 m/s SSM CV FUJ I PACS MV pk dulce 176.568 cm/s SSM CV FUJ I PACS MV area cont eq 3.10 cm2 SSM CV FUJI PACS MV VTI 37.735 cm SSM CV FUJ I PACS MV decel slope 811.972 cm/s2 SSM C V FUJI PACS TR VTI 88.1 cm SSM CV FUJ I PACS TR pk grad 41 mmHg SSM CV FU JI PACS RVOT mn grad 3 mmHg SSM CV FUJI PACS RVOT pk grad 6 mmHg SSM CV FUJI PACS PV mn grad 5 mmHg SSM CV FU JI PACS PV pk dulce 149.944 cm/s SSM CV FUJ I PACS PV pk grad 9 mmHg SSM CV FU JI PACS PV VTI 31.95 cm SSM CV FUJ I PACS PV mn dulce 99.48 cm/s SSM CV FUJ I PACS Ascending aorta 2.85 cm SSM CV FUJI PACS LA ESV A4C MOD Index 42 ml/m2 SSM CV FUJI PACS LA ESV A2C MOD Index 48 ml/m2 SSM CV FUJI PACS [id number] 6.883 cm SSM CV FUJ I PACS [id number] 6.838 cm SSM CV FUJ I PACS Prox Asc Ao Diameter Index 1.18 cm SSM CV FUJI PACS LVIDs index 1.29 1.3 - 2.1 cm/m2 SSM CV FUJI PACS LV LVIDd index 2.49 2.3 - 3.1 cm/m2 SSM CV FUJI PACS Sinus of Valsalva 2.72 cm SS M CV FUJI PACS ST junction 2.538 cm SSM CV F UJI PACS Sinus of valsalva index 1.13 cm/m2 SSM CV FUJI PACS ST junction index 1.05 cm/m2 SS M CV FUJI PACS EF 2D Bullet 71.355 % SSM CV FUJI PACS MV lat S' dulce 10.572 cm/s SSM CV FUJI PACS AV envelope time 288 ms SSM CV FUJI PACS LVOT envelope time 345 ms SSM CV FUJI PACS LV EDV A/L A4C 169.6 mL SSM C V FUJI PACS LV EDV index A/L A4C 70.27 mL/m2 SSM CV FUJI PACS LV Area Miller A2C 43.183 cm2 SSM CV FUJI PACS LV Area Miller A4C 43.714 cm2 SSM CV FUJI PACS LV IVRT 62 ms SSM CV FUJ I PACS MV A duration 125 ms SSM CV FUJI PACS P vein A dulce 45.4 cm/s SSM CV FUJI PACS P vein A duration 153 msec SS M CV FUJI PACS P vein S/D ratio 1.43 SSM CV FUJI PACS MV septal a' dulce 12.844 cm/s SSM CV FUJI PACS MV lat a' dulce 12.634 cm/s SSM CV FUJI PACS Qp:Qs 1.00 SSM CV FUJ I PACS LA area A4C 28.58 20 cm2 SSM CV F UJI PACS RV-miller mid diam 3.7 1.9 - 3.5 cm SSM CV FUJI PACS RV-miller longitudinal diam 8.2 5.9 - 8.3 cm SSM CV FUJI PACS RV LUKE 11.163 3 - 11 cm2 SSM CV FUJI PACS RV LUKE index 4.63 1.6 - 6.4 cm2/m2 SSM CV FUJI PACS RV ANALILIA 21.5 cm2 SSM CV FUJ I PACS RV ANALILIA index 8.91 4.5 - 11.5 cm2/m2 SSM CV FUJI PACS RV wall thickness 0.5 0.1 - 0.5 cm SSM CV FUJI PACS RVOT diam Doppler 2.37 cm SS M CV FUJI PACS RVOT area Doppler 4.41 8 - 20 cm2 SSM CV FUJI PACS RVOT stroke vol 116.85 cm3 SSM CV FUJI PACS RV FAC 47.97 35 % SSM CV FUJ I PACS RVOT envelope time 316 ms SSM CV FUJI PACS PV envelope time 321 ms SSM CV FUJI PACS MV RVol cont eq 0.173 mL SSM CV FUJI PACS MV PHT 63 ms SSM CV FUJ I PACS MV area PHT 3.50 cm2 SSM CV F UJI PACS MV area planimetry 4.34 cm2 SSM CV FUJI PACS MV VTI AT ANNULUS PEAK VELOCITY 136.011 cm/s SSM CV FUJI PACS MV VTI AT ANNULUS PEAK GRADIENT 7.4 mmHg SSM CV FUJI PACS MV VTI AT ANNULUS MEAN VELOCITY 90.009 cm/s SSM CV FUJI PACS MV VTI AT ANNULUS MEAN GRADIENT 3.64 mmHg SSM CV FUJI PACS MV VTI AT ANNULUS EJECTION TIME 0.236 s SSM CV FUJI PACS MV area index 1.80 cm2/m2 SSM CV FUJI PACS MV regurgitant SV 1 117.00 cm3 SSM CV FUJI PACS TV annulus 2.85 cm SSM CV FU JI PACS TV Rvol 2.671 mL SSM CV FUJ I PACS TV RF PISA 0.158 cm SSM CV FU JI PACS TR EROA PISA 0.03 cm2 SSM CV FUJI PACS TV mn dulce 68.849 m/s SSM CV FUJ I PACS TV pk dulce 1.45284 cm/s SSM CV FUJ I PACS TV mn grad 2 mmHg SSM CV FU JI PACS TV pk grad 4 mmHg SSM CV FU JI PACS TV area PHT 3.65 cm2 SSM CV F UJI PACS TV area continuity 6.56 cm2 SSM CV FUJI PACS TV VTI 17.822 cm SSM CV FUJ I PACS TV PHT 60 ms SSM CV FUJ I PACS TV DT 0.208 ms SSM CV FUJ I PACS PV area cont eq 3.7 cm2 SSM CV FUJI PACS Aortic arch 2.664 cm SSM CV F UJI PACS IVC size sniff 0.71 cm SSM C V FUJI PACS AV Rvol cont eq -0.17 mL SSM CV FUJI PACS TV aliasing dulce 62 m/s SSM CV FUJI PACS RV stroke vol 116.80 mL SSM CV FUJI PACS MV annulus diameter 3.0 cm SSM CV FUJI PACS Aortic annulus 2.559 cm SSM C V FUJI PACS LA AREA (2C) 29.597 SSM CV FUJI PACS RA area length vol 57.0 mL SSM CV FUJI PACS RA vol index 23.62 mL/m2 SSM CV FUJI PACS MV EOA 4.3 cm2 SSM CV FUJ I PACS MV EOA index 1.78 cm2/m2 SSM CV FUJI PACS TV RF 3 % SSM CV FUJ I PACS TV SV 120.00 cm3 SSM CV FUJ I PACS IVC size 2.0 cm SSM CV FUJ I PACS TV area 6.0 cm2 SSM CV FUJ I PACS Posterior dimension 0.0 cm SSM CV FUJI PACS sPAP 44.0 mmHg SSM CV FUJ I PACS RVSP 44.0 mmHg SSM CV FUJ I PACS RAP 3.0 mmHg SSM CV FUJ I PACS TR mn grad 26 mmHg SSM CV FU JI PACS Anatomical Region Laterality Modality Ultrasound Narrative 05/15/2023 8:20 PM CDT ?Left??Ventricle: Left ventricle size is upper limits of normal. LVIDd index is 2.49 cm/m2. EDV Index BP is 68.1 mL/m2. ESV Index BP is 19.5 mL/m2. Mildly increased wall thickness. LVPWd is 1.16 cm. Moderately increased ventricular mass. Mass index 2D is 124.90 g/m2. RWT 0.39. Findings consistent with moderate eccentric hypertrophy. Normal systolic function with a visually estimated EF of 70 - 75%. EF by 2D Brownlee biplane is 71%. Normal wall motion. Septal motion is normal. Grade II diastolic dysfunction with borderline elevated left atrial pressure. Elevated mean left atrial pressure. Tissue Doppler velocity is reduced. MV peak E velocity is 174.317 cm/s. MV peak A velocity is 151.083 cm/s. E/A ratio is 1.15. MV e' lateral velocity is 9.939 cm/s. MV e' septal velocity is 12.994 cm/s. Average E/e' ratio > 15. ?Right Ventricle: Right ventricle size is normal. Normal free wall thickness. RV basal diameter is 3.6 cm. RV mid diameter is 3.7 cm. RV longitudinal diameter is 8.2 cm. RVIDd is 3.1 cm. RV wall thickness is 0.5 cm. Normal wall motion. Normal systolic function. TAPSE is 2.212 cm. Fractional area change (FAC) is 47.97%. ?Left Atrium: Left atrium is moderately dilated. Left atrium volume index is 46.3 mL/m2. The interatrial septum appears normal with no evidence of a shunt by color flow Doppler. No mass present. ?Right Atrium: Right atrium size is normal. RA volume index is 23.62 mL/m2. No mass present. IVC/SVC: IVC diameter is less than or equal to 21 mm and decreases greater than 50% during inspiration; therefore the estimated right atrial pressure is normal (~3 mmHg). ?Aortic Valve: No regurgitation. No stenosis. AV mean gradient is 9 mmHg. AV peak gradient is 19 mmHg. AV peak velocity is 2.18 m/s. AV area by continuity VTI is 3.0 cm2. AV area by peak velocity is 2.9 cm2. Valve area index 1.2 cm2/M2. Stroke volume index 48 ml/M2. High output > 5.1 L/min/M2. ?Mitral Valve: Severely thickened posterior leaflet. Moderately calcified posterior leaflet. Severe posterior mitral annular calcification. Moderately restricted motion of the posterior leaflet. Trace regurgitation. MV regurgitant volume by continuity equation is 0.173 mL. No stenosis. MV area by planimetry is 4.34 cm2. MV EOA index is 1.78 cm2/m2. ?Tricuspid Valve: Valve structure is normal. No restricted motion. Trace regurgitation. The pulmonary artery systolic pressure is elevated. TV regurgitant volume is 2.671 mL. TV regurgitant fraction is 3%. TR VTI is 88.1 cm. TR peak velocity is 320.8 cm/s. TV RF PISA is 0.158 cm. TV EROA PISA is 0.03 cm2. Estimated sPAP is 44.0 mmHg. Estimated RVSP is 44.0 mmHg. RAP is 3.0 mmHg. Mean PA pressure of 29 mmHg. PVR 1.65 Wood units, No stenosis. ?No pericardial effusion. Findings consistent with effects of HTN and high output state. ?? Left Ventricle Left ventricle size is upper limits of normal. LVIDd index is 2.49 cm/m2. EDV Index BP is 68.1 mL/m2. ESV Index BP is 19.5 mL/m2. Mildly increased wall thickness. LVPWd is 1.16 cm. Moderately increased ventricular mass. Mass index 2D is 124.90 g/m2. RWT 0.39. Findings consistent with moderate eccentric hypertrophy. Normal systolic function with a visually estimated EF of 70 - 75%. EF by 2D Brownlee biplane is 71%. Normal wall motion. Septal motion is normal. Grade II diastolic dysfunction with borderline elevated left atrial pressure. Elevated mean left atrial pressure. Tissue Doppler velocity is reduced. MV peak E velocity is 174.317 cm/s. MV peak A velocity is 151.083 cm/s. E/A ratio is 1.15. MV e' lateral velocity is 9.939 cm/s. MV e' septal velocity is 12.994 cm/s. Average E/e' ratio > 15. Right Ventricle Right ventricle size is normal. Normal free wall thickness. RV basal diameter is 3.6 cm. RV mid diameter is 3.7 cm. RV longitudinal diameter is 8.2 cm. RVIDd is 3.1 cm. RV wall thickness is 0.5 cm. Normal wall motion. Normal systolic function. TAPSE is 2.212 cm. Fractional area change (FAC) is 47.97%. Left Atrium Left atrium is moderately dilated. Left atrium volume index is 46.3 mL/m2. The interatrial septum appears normal with no evidence of a shunt by color flow Doppler. No mass present. Right Atrium Right atrium size is normal. RA volume index is 23.62 mL/m2. No mass present. IVC/SVC IVC diameter is less than or equal to 21 mm and decreases greater than 50% during inspiration; therefore the estimated right atrial pressure is normal (~3 mmHg). IVC is normal in size. Mitral Valve Severely thickened posterior leaflet. Moderately calcified posterior leaflet. Severe posterior mitral annular calcification. Moderately restricted motion of the posterior leaflet. Trace regurgitation. MV regurgitant volume by continuity equation is 0.173 mL. No stenosis. MV mean gradient is 6 mmHg. MV PHT is 63 ms. MV area by PHT is 3.50 cm2. MV area by planimetry is 4.34 cm2. MV EOA index is 1.78 cm2/m2. Tricuspid Valve Valve structure is normal. No restricted motion. Trace regurgitation. The pulmonary artery systolic pressure is elevated. TV regurgitant volume is 2.671 mL. TV regurgitant fraction is 3%. TR VTI is 88.1 cm. TR peak velocity is 320.8 cm/s. TV RF PISA is 0.158 cm. TV EROA PISA is 0.03 cm2. Estimated sPAP is 44.0 mmHg. Estimated RVSP is 44.0 mmHg. RAP is 3.0 mmHg. Mean PA pressure of 29 mmHg. PVR 1.65 Wood units, No stenosis. TV mean gradient is 2 mmHg. TV area is 6.0 cm2. Aortic Valve Valve structure is trileaflet. No leaflet thickening. No restricted motion. No regurgitation. No stenosis. AV mean gradient is 9 mmHg. AV peak gradient is 19 mmHg. AV peak velocity is 2.18 m/s. AV area by continuity VTI is 3.0 cm2. AV area by peak velocity is 2.9 cm2. Valve area index 1.2 cm2/M2. Stroke volume index 48 ml/M2. High output > 5.1 L/min/M2. Pulmonic Valve Valve structure is normal. No restricted motion. No regurgitation. No stenosis. PV mean gradient is 5 mmHg. PV area by continuity equation is 3.7 cm2. Ascending Aorta Normal sized annulus, sinus of Valsalva (aortic root), ascending aorta and aortic arch. Sinotubular junction indexed to BSA is 1.05 cm/m2. Sinus of Valsalva indexed to BSA is 1.13 cm/m2. Pericardium The pericardium is normal. No pericardial effusion. Study Details Study quality was adequate. A complete 2D, color Doppler, spectral Doppler and M-mode echocardiogram was performed. The apical, parasternal, subcostal and suprasternal views were obtained. Definity ultrasound enhancing agent used. Technical difficulties due to patient's clinical status, patient's body habitus, patient intubated and patient positioning. Prior Study Prior TTE study available for comparison. Prior study date: 04/18/2023. Changes noted compared to prior study. Changes include: Much larger volumes and outputs. . Wall Scoring Baseline Score Index: 1.00 The left ventricular wall motion is normal. Procedure Note Silverio Zapata MD - 05/15/2023 ? ? Left??Ventricle: Left ventricle size is upper limits of normal. LVIDdindex is 2.49 cm/m2. EDV Index BP is 68.1 mL/m2. ESV Index BP is 19.5mL/m2. Mildly increased wall thickness. LVPWd is 1.16 cm. Moderatelyincreased ventricular mass. Mass index 2D is 124.90 g/m2. RWT 0.39.Findings consistent with moderate eccentric hypertrophy. Normal systolicfunction with a visually estimated EF of 70 - 75%. EF by 2D Simpsonbiplane is 71%. Normal wall motion. Septal motion is normal. Grade IIdiastolic dysfunction with borderline elevated left atrial pressure.Elevated mean left atrial pressure. Tissue Doppler velocity is reduced. MVpeak E velocity is 174.317 cm/s. MV peak A velocity is 151.083 cm/s. E/Aratio is 1.15. MV e' lateral velocity is 9.939 cm/s. MV e' septal velocityis 12.994 cm/s. Average E/e' ratio > 15. ? ? Right Ventricle: Right ventricle size is normal. Normal free wallthickness. RV basal diameter is 3.6 cm. RV mid diameter is 3.7 cm. RVlongitudinal diameter is 8.2 cm. RVIDd is 3.1 cm. RV wall thickness is 0.5cm. Normal wall motion. Normal systolic function. TAPSE is 2.212 cm.Fractional area change (FAC) is 47.97%. ? ? Left Atrium: Left atrium is moderately dilated. Left atrium volumeindex is 46.3 mL/m2. The interatrial septum appears normal with noevidence of a shunt by color flow Doppler. No mass present. ? ? Right Atrium: Right atrium size is normal. RA volume index is 23.62mL/m2. No mass present. IVC/SVC: IVC diameter is less than or equal to 21mm and decreases greater than 50% during inspiration; therefore theestimated right atrial pressure is normal (~3 mmHg). ? ? Aortic Valve: No regurgitation. No stenosis. AV mean gradient is 9mmHg. AV peak gradient is 19 mmHg. AV peak velocity is 2.18 m/s. AV areaby continuity VTI is 3.0 cm2. AV area by peak velocity is 2.9 cm2. Valvearea index 1.2 cm2/M2. Stroke volume index 48 ml/M2. High output > 5.1L/min/M2. ? ? Mitral Valve: Severely thickened posterior leaflet. Moderatelycalcified posterior leaflet. Severe posterior mitral annularcalcification. Moderately restricted motion of the posterior leaflet.Trace regurgitation. MV regurgitant volume by continuity equation is 0.173mL. No stenosis. MV area by planimetry is 4.34 cm2. MV EOA index is 1.78cm2/m2. ? ? Tricuspid Valve: Valve structure is normal. No restricted motion. Traceregurgitation. The pulmonary artery systolic pressure is elevated. TVregurgitant volume is 2.671 mL. TV regurgitant fraction is 3%. TR VTI is88.1 cm. TR peak velocity is 320.8 cm/s. TV RF PISA is 0.158 cm. TV EROAPISA is 0.03 cm2. Estimated sPAP is 44.0 mmHg. Estimated RVSP is 44.0mmHg. RAP is 3.0 mmHg. Mean PA pressure of 29 mmHg. PVR 1.65 Wood units,No stenosis. ? ? No pericardial effusion. Findings consistent with effects of HTN and high output state. Uziel Chacon MD ECHO CUPID * TRANSFUSE RED BLOOD CELL LEUKOREDUCED UNIT(S) (05/15/2023 10:06 AM CDT) Uziel Chacon MD NURSING - BLOOD PROD TRANSFUSION * PREPARE FFP UNIT(S), 1 Units (05/15/2023 9:46 AM CDT) Only the most recent of2 resultswithin the time period is included. Unit Description Liquid Plasma [facility] Unit ABO A [facility] Unit Rh POS [facility] Product Number [id number] [facility] B[facility] Unit Donor # [id number] [facility] Unit Status transfused [facility] Product Code [id number] [facility] Blood Type Barcode 6200 [facility] Expiration Date [id number] S BLOOD BANK LAB Blood Bank BLOOD SPECIMEN / Unknown 05/12/2023 7:32 AM CDT Uziel Chacon MD LAB - BLOOD BANK ORD ERABLES Performing Organization Address City/[facility]/ZIP Co de Phone Number [facility] [address] [place] [address], [place] [phone] * PREPARE (CROSSMATCH) RBC UNIT(S), 1 Units (05/15/2023 7:01 AM CDT) Only the most recent of26 resultswithin the time period is included. Unit Description AS1 LR PRBC [facility] Unit ABO A [facility] Unit Rh POS [facility] Product Number [id number] [facility] Unit Donor # [id number] [facility] Unit Status transfused [facility] Product Code [id number] [facility] Blood Type Barcode 6200 [facility] Expiration Date [id number] S BLOOD BANK LAB Blood Bank BLOOD SPECIMEN / Unknown 05/12/2023 7:32 AM CDT Uziel Chacon MD LAB - BLOOD BANK ORD ERABLES [facility] [address] [place] [address], [place] [phone] * TRIGLYCERIDES BLOOD (05/14/2023 3:19 AM CDT) Triglycerides 86 <150 mg/dL 05/14/2023 3:51 AM CDT [facility] Comment: ATP III Classification of Triglycerides: ?<150 mg/dL: ??Normal ? 150 - 199 mg/dL: ??Borderline High ? 200 - 400 mg/dL: ??High ?>500 mg/dL: ??Very High Blood BLOOD SPECIMEN / Unknown Venipuncture / Unknown 05/14/2023 3:19 AM CDT 05/14/2023 3:25 AM CDT Stephane Wallis MD LAB - CHEMISTR Y ORDERABLES Performing Organization Address [facility]/ZIP Co de Phone Number [address] [address], [place] [phone] * TRANSFUSE RED BLOOD CELL LEUKOREDUCED UNIT(S) (05/13/2023 12:57 PM CDT) Uziel Chacon MD NURSING - BLOOD PROD TRANSFUSION * (ABNORMAL) PTT [facility] (05/13/2023 9:31 AM CDT) Only the most recent of14 resultswithin the time period is included. APTT 42.8(H) 23.0 - 38.4 Seconds 05/13/2023 10:26 AM CDT [facility] Comment:Suggested therapeuti c range for full dose I.V. unfractionated heparin therapy for venous thromboembolism is 71 to 109 seconds. Blood BLOOD SPECIMEN / Unknown Venipuncture / Unknown 05/13/2023 9:31 AM CDT 05/13/2023 9:46 AM CDT Uziel Chacon MD LAB - COAGULATION OR DERABLES Performing Organization Address [facility]/ZIP Co de Phone Number [address] [address], [place] [phone] * TRANSFUSE RED BLOOD CELL LEUKOREDUCED UNIT(S) (05/12/2023 10:27 PM CDT) Uziel Chacon MD NURSING - BLOOD PROD TRANSFUSION * IR VISCERAL ANGIO (05/12/2023 9:53 PM CDT) Anatomical Region Laterality Modality Abdomen X-Ray Angiograph y 05/12/2023 10:0 0 PM CDT Impressions 05/12/2023 10:14 PM CDT Impression: 1.Splenic angiogram demonstrated no evidence of active contrast extravasation or acute injury. However, given the patient's recent EGD and CTA demonstrating possible active bleeding from short gastric arteries from the superior branches of the splenic artery were empirically embolized. 2.Successful embolization of the splenic artery with 2.75 vials of 100-300 um Embospheres, as described above. I, Dr. Ferny Jesus, was present and performed/supervised the entire procedure. > Dictated by Osmany Portillo DO (Box Order Person) Ferny Whitlock DO have personally reviewed and interpreted this examination/study. > Interpreting Provider: Ferny Jesus DO on 05/12/2023 10:14 PM Narrative 05/12/2023 10:14 PM CDT PROCEDURE: ??IR VISCERAL ANGIO, DATE/TIME OF EXAM: ??05/12/2023 9:54 PM, LOCATION ??[facility] INDICATION: I85.01: Bleeding esophageal varices, unspecified esophageal varices type (HCC), K92.2 Upper GI bleed ADDITIONAL CLINICAL INFORMATION: Ordering Provider Reason For Exam: ??GI bleed Operators: 1.Dr. Ferny Jesus, Attending Physician 2.Dr. Osmany Portillo, Resident Physician 3.Huang Arora MS 4 Anesthesia: 1.Local anesthesia - 10 mL of 1% lidocaine 2.The patient arrived intubated and sedated from the ICU. Procedure: 1.Ultrasound-guided access of the right common femoral artery. 2.Selective catheterization of the celiac artery (1st order) and angiogram. 3.Selective catheterization of the splenic artery (2nd order) and angiogram. 4.Subselective catheterization of 3 branches of the splenic artery supplying the superior pole of the spleen/gastric fundus and angiogram. 5.Embolization of the short gastric artery branches with 100-300 um Embospheres under fluoroscopic guidance. 6.Post-embolization angiogram of the splenic artery. 7.Sheath angiogram of the right common femoral artery. 8.Hemostasis with 6 F Mynx closure device. Fluoroscopic time: 36.9 minutes ?Contrast: 130 mL of Isovue-300 Procedure in detail: The procedure, risks, and possible complications were explained to the patient's son in detail, and informed consent was obtained. The patient was placed supine on the angiography table. The right groin was prepped and draped in the usual sterile fashion. Psychotherapist Counselor radiograph of the abdomen was obtained, which was unremarkable except for prior embolization coils within the left upper quadrant. Pre procedure time out was performed. The patient arrived to the IR suite intubated and sedated from the ICU. A qualified radiology nurse monitored the patient s vital signs throughout the procedure. Limited ultrasound of the right common femoral artery demonstrated a patent vessel. The level of its bifurcation was identified. A ty scale image was documented. The right common femoral artery was accessed using a micropuncture needle under realtime ultrasound guidance. The needle entry was documented. ??Following a series of exchanges, a 5-Turkmen vascular sheath was placed. The celiac artery was catheterized with a combination of 5 Turkmen SOS and 5 Turkmen Cobra catheters and angiogram was obtained. The angiogram demonstrated splenomegaly with 3 dominant branches supplying the superior pole of the spleen/gastric fundus without evidence of contrast extravasation or other evidence of acute traumatic injury. Subselective catheterization of the short gastric artery branches was performed with a coaxially advanced 2.4 Turkmen ProGreat microcatheter and angiogram was obtained, which demonstrated no contrast extravasation or other evidence of acute arterial injury. However, given the findings on CTA and previous endoscopy the decision was made to empirically embolize the superior pole of the spleen supplying short gastric arteries to the gastric fundus. Embolization of the 3 superior splenic artery branches/short gastric artery branches was performed with 2.75 vials of 100-300 um Embospheres under fluoroscopic guidance. Post-embolization angiogram of the splenic artery showed satisfactory stasis. A sheath angiogram of the right common femoral artery was unremarkable with access above its bifurcation at the level of the femoral head. Hemostasis was achieved with a 6 Turkmen Mynx closure device. Sterile dressing was applied. The patient tolerated the procedure well and was transferred to the holding area in stable condition. There were no immediate complications associated with the procedure. Procedure Note Ferny Jesus MD - 05/12/2023 PROCEDURE: IR VISCERAL ANGIO, DATE/TIME OF EXAM: 05/12/2023 9:54 PM, LOCATION [facility] INDICATION: I85.01: Bleeding esophageal varices, unspecified esophageal varices type (HCC), K92.2 Upper GI bleed ADDITIONAL CLINICAL INFORMATION: Ordering Provider Reason For Exam: GI bleed Operators: 1.Dr. Ferny Jesus, Attending Physician 2.Dr. Osmany Portillo, Resident Physician 3.Huang Arora, MS 4 Anesthesia: 1.Local anesthesia - 10 mL of 1% lidocaine 2.The patient arrived intubated and sedated from the ICU. Procedure: 1.Ultrasound-guided access of the right common femoral artery. 2.Selective catheterization of the celiac artery (1st order) andangiogram. 3.Selective catheterization of the splenic artery (2nd order) and angiogram. 4.Subselective catheterization of 3 branches of the splenic artery supplying the superior pole of the spleen/gastric fundus and angiogram. 5.Embolization of the short gastric artery branches with 100-300 um Embospheres under fluoroscopic guidance. 6.Post-embolization angiogram of the splenic artery. 7.Sheath angiogram of the right common femoral artery. 8.Hemostasis with 6 F Mynx closure device. Fluoroscopic time: 36.9 minutes Contrast: 130 mL of Isovue-300 Procedure in detail: The procedure, risks, and possible complications were explained to the patient's son in detail, and informed consent was obtained. The patientwas placed supine on the angiography table. The right groin was prepped and draped in the usual sterile fashion. Psychotherapist Counselor radiograph of the abdomen was obtained, which was unremarkable except for prior embolization coilswithin the left upper quadrant. Pre procedure time out was performed. The patient arrived to [facility] intubated and sedated from the ICU. A qualified radiology nursemonitored the patient s vital signs throughout the procedure. Limited ultrasound of the right common femoral artery demonstrated apatent vessel. The level of its bifurcation was identified. A ty scale imagewas documented. The right common femoral artery was accessed using a micropuncture needle under realtime ultrasound guidance. The needleentry was documented. Following a series of exchanges, a 5-Turkmen vascular sheath was placed. The celiac artery was catheterized with a combination of 5 Turkmen SOS and5 Turkmen Cobra catheters and angiogram was obtained. The angiogram demonstrated splenomegaly with 3 dominant branches supplying thesuperior pole of the spleen/gastric fundus without evidence of contrast extravasation or other evidence of acute traumatic injury. Subselective catheterization of the short gastric artery branches was performed with a coaxially advanced 2.4 Turkmen ProGreat microcatheterand angiogram was obtained, which demonstrated no contrast extravasation or other evidence of acute arterial injury. However, given the findings onCTA and previous endoscopy the decision was made to empirically embolize the superior pole of the spleen supplying short gastric arteries to thegastric fundus. Embolization of the 3 superior splenic artery branches/short gastric artery branches was performed with 2.75 vials of 100-300 um Embospheres under fluoroscopic guidance. Post-embolization angiogram ofthe splenic artery showed satisfactory stasis. A sheath angiogram of the right common femoral artery was unremarkablewith access above its bifurcation at the level of the femoral head.Hemostasis was achieved with a 6 Turkmen Mynx closure device. Sterile dressing was applied. The patient tolerated the procedure well and [facility]. There were no immediate complicationsassociated with the procedure. Impression: 1.Splenic angiogram demonstrated no evidence of active contrast extravasation or acute injury. However, given the patient's recent EGDand CTA demonstrating possible active bleeding from short gastric arteriesfrom the superior branches of the splenic artery were empirically embolized. 2.Successful embolization of the splenic artery with 2.75 vials [id number] um Embospheres, as described above. I, Dr. Ferny Jesus, was present and performed/supervised the entire procedure. > Dictated by Osmany Portillo DO (Box Order Person) Ferny Whitlock DO have personally reviewed and interpreted this examination/study. > Interpreting Provider: Ferny Jesus DO on 05/12/2023 10:14 PM Uziel Chacon MD IR ORDERABLES * TRANSFUSE RED BLOOD CELL LEUKOREDUCED UNIT(S) (05/12/2023 7:40 PM CDT) Stephane Wallis MD NURSING - BLOO D PROD TRANSFUSION * CT ANGIO ABDOMEN (05/12/2023 6:14 PM CDT) Anatomical Region Laterality Modality Abdomen Computed Tomogra phy 05/12/2023 7:52 PM CDT Impressions 05/12/2023 11:02 PM CDT Impression: 1.Multiple curvilinear areas of arterial phase contrast within the dependent portion of the gastric fundus is may represent prominent submucosal vessels, less likely hemorrhage. 2.Patent arteries in the abdomen and pelvis. 3.Hepatic cirrhosis with sequela of portal hypertension. Patent TIPS. 4.Moderate bilateral pleural effusions with adjacent atelectasis. These findings were discussed with Dr. Turner by Dr. Cannon via telephone at 8:13 PM on 05/12/2023 with readback comprehension and verification. > Dictated by Brain Cannon DO (radiology transporter). I, Percy Moise MD have personally reviewed and interpreted this examination/study. > Interpreting Provider: Percy Moise MD on 05/12/2023 11:02 PM Narrative 05/12/2023 11:02 PM CDT PROCEDURE: ??CT ANGIO ABDOMEN, DATE/TIME OF EXAM: ??05/12/2023 6:16 PM, LOCATION ??[facility] INDICATION: I85.01: Bleeding esophageal varices, unspecified esophageal varices type (HCC) K92.1: Melena ADDITIONAL CLINICAL INFORMATION: Ordering Provider Reason For Exam: ??GI bleed Technologist Note: Additional: COMPARISON: CT liver 3 phase with pelvis dated 04/02/2023 TECHNIQUE: CT of the abdomen and pelvis was performed prior to and following the uneventful administration of 100 mL of Isovue 370 intravenous contrast according to an angiographic protocol. Three dimensional postprocessing was performed by the technologist and sent to the workstation for review. Findings: Abdominal aorta: There is no aortic dissection, intramural hematoma, penetrating atherosclerotic ulcer, or aneurysm. The aorta is normal in course and caliber. Abdominal aortic branches: Celiac axis: Patent without significant focal stenosis. Replaced left hepatic artery arising off the left gastric artery. Superior mesenteric artery: Patent without significant focal stenosis. Inferior mesenteric artery: Patent without significant focal stenosis. Right renal artery: Patent without significant focal stenosis. Left renal artery: Patent without significant focal stenosis. Right common iliac artery: Patent without significant focal stenosis. Right external iliac artery: Patent without significant focal stenosis. Right internal iliac artery: Patent without significant focal stenosis. Left common iliac artery: Patent without significant focal stenosis. Left external iliac artery: Patent without significant focal stenosis. Left internal iliac artery: Patent without significant focal stenosis. Small splenic, gastric, and esophageal varices are noted. Lower Chest: Moderate bilateral pleural effusions with adjacent atelectasis. Liver: The liver is shrunken and has a nodular surface, consistent with hepatic cirrhosis. TIPS is noted which is patent. Gallbladder and Bile Ducts: The gallbladder is absent. Unchanged focal intrahepatic bile duct dilation involving hepatic segments 4A and 8. Spleen: Normal. Embolic coils noted around the splenic hilum. Pancreas: Normal. Adrenals: Normal. Kidneys: Multiple subcentimeter hypoattenuating lesions in the left kidney are too small to characterize, but likely represent cysts. Unchanged punctate nonobstructing stones in the left inferior pole. Gastrointestinal: Small hiatal hernia. Multiple curvilinear areas of arterial phase contrast within the dependent portion of the gastric fundus (series 9, image 74) which appears to minimally increased in prominence on the venous phase.. Normal appendix. Mesentery/Peritoneum/Retroperitoneum: Moderate volume ascites demonstrating simple fluid attenuation. Bladder: Normal. Reproductive Organs: The uterus is absent. Bones: Bone windows demonstrate no suspicious lytic or blastic lesions. The visible osseous structures are intact. Degenerative changes are seen in the spine. Soft tissues: Mild body wall edema. Procedure Note Percy Moise MD - 05/12/2023 PROCEDURE: CT ANGIO ABDOMEN, DATE/TIME OF EXAM: 05/12/2023 6:16 PM, LOCATION [facility] INDICATION: I85.01: Bleeding esophageal varices, unspecified esophageal varices type (HCC) K92.1: Melena ADDITIONAL CLINICAL INFORMATION: Ordering Provider Reason For Exam: GI bleed Technologist Note: Additional: COMPARISON: CT liver 3 phase with pelvis dated 04/02/2023 TECHNIQUE: CT of the abdomen and pelvis was performed prior to and following the uneventful administration of 100 mL of Isovue 370intravenous contrast according to an angiographic protocol. Three dimensional postprocessing was performed by the technologist and sent to the workstation for review. Findings: Abdominal aorta: There is no aortic dissection, intramural hematoma, penetrating atherosclerotic ulcer, or aneurysm. The aorta is normal in course and caliber. Abdominal aortic branches: Celiac axis: Patent without significant focal stenosis. Replaced left hepatic artery arising off the left gastric artery. Superior mesenteric artery: Patent without significant focal stenosis. Inferior mesenteric artery: Patent without significant focal stenosis. Right renal artery: Patent without significant focal stenosis. Left renal artery: Patent without significant focal stenosis. Right common iliac artery: Patent without significant focal stenosis. Right external iliac artery: Patent without significant focal stenosis. Right internal iliac artery: Patent without significant focal stenosis. Left common iliac artery: Patent without significant focal stenosis. Left external iliac artery: Patent without significant focal stenosis. Left internal iliac artery: Patent without significant focal stenosis. Small splenic, gastric, and esophageal varices are noted. Lower Chest: Moderate bilateral pleural effusions with adjacent atelectasis. Liver: The liver is shrunken and has a nodular surface, consistent with hepatic cirrhosis. TIPS is noted which is patent. Gallbladder and Bile Ducts: The gallbladder is absent. Unchanged focal intrahepatic bile ductdilation involving hepatic segments 4A and 8. Spleen: Normal. Embolic coils noted around the splenic hilum. Pancreas: Normal. Adrenals: Normal. Kidneys: Multiple subcentimeter hypoattenuating lesions in the left kidney aretoo small to characterize, but likely represent cysts. Unchanged punctate nonobstructing stones in the left inferior pole. Gastrointestinal: Small hiatal hernia. Multiple curvilinear areas of arterial phasecontrast within the dependent portion of the gastric fundus (series 9, image 74) which appears to minimally increased in prominence on the venous phase.. Normal appendix. Mesentery/Peritoneum/Retroperitoneum: Moderate volume ascites demonstrating simple fluid attenuation. Bladder: Normal. Reproductive Organs: The uterus is absent. Bones: Bone windows demonstrate no suspicious lytic or blastic lesions. The visible osseous structures are intact. Degenerative changes are seen inthe spine. Soft tissues: Mild body wall edema. Impression: 1.Multiple curvilinear areas of arterial phase contrast within the dependent portion of the gastric fundus is may represent prominent submucosal vessels, less likely hemorrhage. 2.Patent arteries in the abdomen and pelvis. 3.Hepatic cirrhosis with sequela of portal hypertension. Patent TIPS. 4.Moderate bilateral pleural effusions with adjacent atelectasis. These findings were discussed with Dr. Turner by Dr. Cannon via telephoneat 8:13 PM on 05/12/2023 with readback comprehension and verification. > Dictated by Brain Cannon DO (radiology transporter). I, Percy Moise MD have personally reviewed and interpreted this examination/study. > Interpreting Provider: Percy Moise MD on 05/12/2023 11:02 PM Ferny Jesus MD CT ORDERABLES * EGD (05/12/2023 4:13 PM CDT) Report Endoscopy POC Endoscopy Department Report __ _ Patient Name: Sharon Carbajal ?Procedure Date: 05/12/2023 4:13 PM ? Date of : 1965 Classification: Inpatient ? Gender: Female Ethnicity: Not or ? Race: White __ _ Providers: ?Stephane Rowell MD: ? Procedure: ?Upper GI endoscopy Indications: ?Melena, Active gastrointestinal bleeding Medications: ?General Anesthesia Description of Procedure: After obtaining informed consent, the endoscope was ?passed under direct vision. Throughout the ?procedure, the patient's blood pressure, pulse, and ?oxygen saturations were monitored continuously. The ?[id number] was introduced through the mouth, and ?advanced to the second part of duodenum. The upper ?GI endoscopy was accomplished without difficulty. ?The patient tolerated the procedure well. ? Findings: ? Small (< 5 mm) varices were found in the lower third of the esophagus. ? Red blood was found in the gastric fundus and in the gastric body, ? Actively and profusely bleeding bright red in color. (??arterial) ? Estimated Blood Loss: ? Estimated blood loss: none. Impression: ? - Small (< 5 mm) esophageal varices. ?- Red blood in the gastric fundus and in the ?gastric body. Possible source Gasric Varices vs ?arterial source, not sure exact source ?- No specimens collected. Recommendation: ? - Return patient to ICU for ongoing care. ?- Refer to an interventional radiologist now for ?control of bleed.(D/w Dr Ferny Jesus). ? Attending Participation: ??I personally performed the entire procedure. ? Procedure Code(s): ? --- Professional --- ? 72379, Esophagogastroduode noscopy, flexible, transoral; diagnostic, ? including collection of specimen(s) by brushing or washing, when ? performed (separate procedure) Diagnosis Code(s): ?--- Professional --- ?I85.00, Esophageal varices without bleeding ?K92.2, Gastrointestinal hemorrhage, unspecified ?K92.1, Melena (includes Hematochezia) CPT copyright 2021 [employer]. All rights reserved. The codes documented in this report are preliminary and upon knockdown worker review may be revised to meet current compliance requirements. Stephane Wallis, 05/12/2023 4:53:08 PM Note Initiated On: 05/12/2023 4:13 PM Number of Addenda: 0 ? [facility] ? [address] [place] [address] [facility] [place] 05/12/2023 4:13 PM CDT Stephane Wallis MD GI PROCEDURE O RDERABLES Performing Organization Address City/[facility]/ZIP Co de Phone Number [facility] * LACTIC ACID BLOOD (05/12/2023 2:13 PM CDT) Only the most recent of6 resultswithin the time period is included. Lactic Acid-Stat 2.0 <=2.0 mmol/L 05/12/2023 2:51 PM CDT [facility] Blood BLOOD SPECIMEN / Unknown Venipuncture / Unknown 05/12/2023 2:13 PM CDT 05/12/2023 2:22 PM CDT Stephane Wallis MD LAB - CHEMISTR Y ORDERABLES Performing Organization Address [facility]/ZIP Co de Phone Number [facility] [address] [place] [address], [facility] [phone] * TRANSFUSE RED BLOOD CELL LEUKOREDUCED UNIT(S) (05/12/2023 11:40 AM CDT) Stephane Wallis MD NURSING - BLOO D PROD TRANSFUSION * TYPE + SCREEN PANEL (05/12/2023 7:29 AM CDT) Only the most recent of15 resultswithin the time period is included. Antibody Screen NEG 8:12 AM CDT [facility] ABO Rh A POS 05/12/2023 8:12 AM CDT [facility] Blood Bank BLOOD SPECIMEN / Unknown Line Draw / Unknown 05/12/2023 7:29 AM CDT 05/12/2023 7:32 AM CDT Stephane Wallis MD LAB - BLOOD BA NK ORDERABLES [facility] [address] [place] [address], [facility] [phone] * CARDIAC EKG ORDER (04/23/2023 11:48 AM RADIOSONDE OPERATOR) Only the most recent of10 resultswithin the time period is included. Narrative 04/23/2023 11:48 AM RADIOSONDE OPERATOR Ordered by an unspecified provider. Scanned Document CARDIAC SERVICES ORD ERABLES * IR EMBO ART VEIN HEMOR OR LYMPH EXTR (04/17/2023 4:18 PM RADIOSONDE OPERATOR) Only the most recent of2 resultswithin the time period is included. Anatomical Region Laterality Modality X-Ray Angiograph y 04/17/2023 5:00 PM RADIOSONDE OPERATOR Impressions 04/18/2023 11:11 AM RADIOSONDE OPERATOR Impression: 1.Hepatic and portal venogram with demonstration of patent TIPS and measurement of systemic and portal venous pressures (portosystemic gradient 11 mmHg). 2.Successful coil embolization of multiple gastric varices, as described above. Follow up: The patient should be followed up with GI and hepatology teams. This study was dictated by radiology transporter Mamadou Kim MD and reviewed and edited by the attending. IFerny DO have personally reviewed and interpreted this examination/study. > Interpreting Provider: Ferny Jesus DO on 04/18/2023 11:11 AM Narrative 04/18/2023 11:11 AM RADIOSONDE OPERATOR PROCEDURE: ??IR EMBO ART VEIN HEMOR OR LYMPH EXTR DATE/TIME OF EXAM: ??04/17/2023 4:19 PM INDICATION: K92.2: Upper GI bleed Operators: 1.Dr. Ferny Jesus, Attending Physician 2.Dr. Mamadou Kim, Resident Physician Anesthesia: 1.Local anesthesia - 10 mL of 1% lidocaine 2.Intravenous anesthesia- Fentanyl 50 mcg Procedure: 1.Ultrasound-guided access of the right internal jugular vein. 2.Hepatic and portal venograms with pressure measurements. 3.Splenic vein venograms with subsequent embolization of multiple gastric varices. 4.Post-embolization portal venogram. Fluoroscopic time: 15.7 minutes ?Contrast: 60 mL of Isovue-300 Procedure in detail: The procedure, risks, and possible complications were explained to the patient's son in detail, and informed consent was obtained via telephone. The patient was brought to the angiography suite and placed supine on the procedure table. Psychotherapist Counselor radiograph of the abdomen was obtained, which demonstrated a TIPS in the right upper quadrant as well as embolization coils in left upper quadrant. The patient received intravenous Fentanyl (50 mcg) for anesthesia. A qualified radiology nurse monitored the patient s vital signs throughout the procedure. The right neck was prepped and draped in the usual sterile manner. Limited ultrasound of the right internal jugular vein demonstrated patency and compressibility. A ty scale image was documented. After instillation of 1% lidocaine for local anesthesia, a small skin incision was made in the right lower neck. Under real time ultrasound guidance, the right internal jugular vein was accessed using a micropuncture needle. The needle entry was documented. After a series of exchanges, an 8-Turkmen vascular sheath was placed. Right atrial pressure was measured through the vascular sheath and was found to be 10 mmHg. Using a 5-Turkmen MPA catheter, the right hepatic vein was catheterized and venogram was obtained, which demonstrated a patent TIPS. The catheter was advanced through the TIPS into the main portal vein. Main portal vein pressure measured 21 mmHg for a portosystemic gradient (portal - RA) of 11 mmHg. The MPA catheter was further advanced into the splenic vein (2nd order) and venogram was obtained which demonstrated multiple gastric varices. The gastric varices were subsequently cannulated with a coaxially advanced 2.4 Turkmen Progreat microcatheter. Multiple 3-4 mm Azur x (5-8 cm) and 4 mm Concerto x (10-12 cm) coils were then coaxially deployed to embolize two gastric varices. Post-embolization venogram demonstrated near-complete occlusion of gastric varices with contrast backflow in portal vein. The sheath was removed, hemostasis was achieved with manual compression, and sterile dressing was applied. The patient tolerated the procedure well and was transferred to the holding area in stable condition. There were no immediate complications associated with the procedure. Procedure Note Ferny Jesus MD - 04/18/2023 PROCEDURE: IR EMBO ART VEIN HEMOR OR LYMPH EXTR DATE/TIME OF EXAM: 04/17/2023 4:19 PM INDICATION: K92.2: Upper GI bleed Operators: 1.Dr. Ferny Jesus, Attending Physician 2.Dr. Mamadou Kim, Resident Physician Anesthesia: 1.Local anesthesia - 10 mL of 1% lidocaine 2.Intravenous anesthesia- Fentanyl 50 mcg Procedure: 1.Ultrasound-guided access of the right internal jugular vein. 2.Hepatic and portal venograms with pressure measurements. 3.Splenic vein venograms with subsequent embolization of multiplegastric varices. 4.Post-embolization portal venogram. Fluoroscopic time: 15.7 minutes Contrast: 60 mL of Isovue-300 Procedure in detail: The procedure, risks, and possible complications were explained to the patient's son in detail, and informed consent was obtained viatelephone. The patient was brought to the angiography suite and placed supine onthe procedure table. Psychotherapist Counselor radiograph of the abdomen was obtained, which demonstrated a TIPS in the right upper quadrant as well as embolization coils in left upper quadrant. The patient received intravenous Fentanyl (50 mcg) for anesthesia. A qualified radiology nurse monitored the patient s vital signs throughout the procedure. The right neck was prepped and draped in the usual sterile manner.Limited ultrasound of the right internal jugular vein demonstrated patency and compressibility. A ty scale image was documented. After instillationof 1% lidocaine for local anesthesia, a small skin incision was made in the right lower neck. Under real time ultrasound guidance, the rightinternal jugular vein was accessed using a micropuncture needle. The needle entry was documented. After a series of exchanges, an 8-Turkmen vascular sheath was placed. Right atrial pressure was measured through the vascular sheath and was found to be 10 mmHg. Using a 5-Turkmen MPA catheter, the right hepatic vein was catheterizedand venogram was obtained, which demonstrated a patent TIPS. The catheterwas advanced through the TIPS into the main portal vein. Main portal vein pressure measured 21 mmHg for a portosystemic gradient (portal - RA) of11 mmHg. The MPA catheter was further advanced into the splenic vein (2nd order)and venogram was obtained which demonstrated multiple gastric varices. The gastric varices were subsequently cannulated with a coaxially advanced2.4 Turkmen Progreat microcatheter. Multiple 3-4 mm Azur x (5-8 cm) and 4 mm Concerto x (10-12 cm) coils were then coaxially deployed to embolize two gastric varices. Post-embolization venogram demonstrated near-complete occlusion of gastric varices with contrast backflow in portal vein. The sheath was removed, hemostasis was achieved with manual compression, and sterile dressing was applied. The patient tolerated the procedurewell and was transferred to the holding area in stable condition. There wereno immediate complications associated with the procedure. Impression: 1.Hepatic and portal venogram with demonstration of patent TIPS and measurement of systemic and portal venous pressures (portosystemicgradient 11 mmHg). 2.Successful coil embolization of multiple gastric varices, as described above. Follow up: The patient should be followed up with GI and hepatology teams. This study was dictated by radiology transporter Mamadou Kim MD and reviewed and edited by the attending. IFerny DO have personally reviewed and interpreted this examination/study. > Interpreting Provider: Ferny Jesus DO on 04/18/2023 11:11 AM Madelin COHN IR ORDERABLES * EGD (04/17/2023 12:53 PM RADIOSONDE OPERATOR) Report Endoscopy POC Endoscopy Department Report __ _ Patient Name: Sharon Carbajal ?Procedure Date: 04/17/2023 12:53 PM ? Date of : 1965 Classification: Inpatient ? Gender: Female Ethnicity: Not or ? Race: White __ _ Providers: ?Stephane Wallis Referring MD: ? Procedure: ?Small bowel enteroscopy Indications: ?Melena Medications: ?Monitored Anesthesia Care Description of Procedure: After obtaining informed consent, the endoscope was ?passed under direct vision. Throughout the ?procedure, the patient's blood pressure, pulse, and ?oxygen saturations were monitored continuously. The ?[id number]-H190DL was introduced through the mouth and ?advanced to the proximal jejunum. The small bowel ?enteroscopy was accomplished without difficulty. ?The patient tolerated the procedure well. ? Findings: ? There was no evidence of significant pathology in the entire examined ? portion of jejunum. ? There was no evidence of significant pathology in the entire examined ? duodenum. ? Grade I, small (< 5 mm) varices were found in the lower third of the ? esophagus. ? Red blood was found in the gastric fundus. Lavage of the area was ? performed using a small amount of sterile water, resulting in incomplete ? clearance with continued poor visualization, and continued active ? bleeding was noted to persist, difficult visualization precluded any ? attempts to intervene endoscopically. ? Type 1 isolated gastric varices (IGV1, varices located in the fundus) ? with oozing blood were found in the gastric fundus. There were stigmata ? of recent bleeding. ? Estimated Blood Loss: ? Estimated blood loss: none. Complications: ?No immediate complications. Impression: ? - The examined portion of the jejunum was normal. ?- Normal examined duodenum. ?- Grade I and small (< 5 mm) esophageal varices. ?- Red blood in the gastric fundus. ?- Type 1 isolated gastric varices (IGV1, varices ?located in the fundus), oozing blood. ?- No specimens collected. Recommendation: ? - Transfer patient to ICU. ? Attending Participation: ??I personally performed the entire procedure. ? Procedure Code(s): ? --- Professional --- ? 08373, Small intestinal endoscopy, enteroscopy beyond second portion of ? duodenum, not including ileum; diagnostic, including collection of ? specimen(s) by brushing or washing, when performed (separate procedure) Diagnosis Code(s): ?--- Professional --- ?I85.00, Esophageal varices without bleeding ?K92.2, Gastrointestinal hemorrhage, unspecified ?I86.4, Gastric varices ?K92.1, Melena (includes Hematochezia) CPT copyright 2021 [employer]. All rights reserved. The codes documented in this report are preliminary and upon knockdown worker review may be revised to meet current compliance requirements. Stephane Wallis, 04/17/2023 2:36:17 PM Note Initiated On: 04/17/2023 12:53 PM Number of Addenda: 0 ? [facility] ? [address] [place] [address] [facility] 04/17/2023 12:5 3 PM RADIOSONDE OPERATOR Stephane Wallis MD GI PROCEDURE O RDERABLES Performing Organization Address City/[facility] Co de Phone Number [facility] [employer] * TRANSFUSE RED BLOOD CELL LEUKOREDUCED UNIT(S) (04/17/2023 8:24 AM RADIOSONDE OPERATOR) Sanjana Roth MD NURSING - BLOOD PROD TRANSFUSION * TROPONIN-I HIGH SENSITIVE REFLEX 1HOUR (04/17/2023 5:43 AM RADIOSONDE OPERATOR) Only the most recent of3 resultswithin the time period is included. Troponin I High Sensitive <3 <=14 ng/L 04/17/2023 6:19 AM RADIOSONDE OPERATOR [facility] Delta Troponin I HS 04/17/2023 6:19 AM [facility] Comment:Delta value intentio stanley not calculated. Baseline to 1 hour specimen collection interval exceeded. Blood BLOOD SPECIMEN / Unknown Venipuncture / Unknown 04/17/2023 5:43 AM RADIOSONDE OPERATOR 04/17/2023 5:47 AM RADIOSONDE OPERATOR Erin Oliveira [employer] [facility] - CHEMIS TRY ORDERABLES [facility] [address] [place] [address] [phone] * TRANSFUSE RED BLOOD CELL LEUKOREDUCED UNIT(S) (04/17/2023 5:29 AM RADIOSONDE OPERATOR) Sanjana Roth MD NURSING - BLOOD PROD TRANSFUSION * (ABNORMAL) URINALYSIS REFLEX TO MICROSCOPIC NO CULTURE (04/17/2023 3:15 AM RADIOSONDE OPERATOR) Only the most recent of4 resultswithin the time period is included. Color UA Yellow Straw, Yellow 04/17/2023 3:32 AM [facility] Clarity UA Clear Clear 04/17/2023 3:32 AM [facility] Specific [place] UA 1.023 1.005 - 1.030 04/17/2023 3:32 AM [facility] pH UA 6.0 5.0 - 8.0 pH 04/17/2023 3:32 AM [facility] Protein UA Negative Negative 04/17/2023 3:32 AM [facility] Glucose UA Negative Negative 04/17/2023 3:32 AM [facility] Ketone UA Trace(A) Negative 04/17/2023 3:32 AM [facility] Bilirubin UA Negative Negative 04/17/2023 3:32 AM [facility] Blood UA Negative Negative 04/17/2023 3:32 AM [facility] Nitrite UA Negative Negative 04/17/2023 3:32 AM [facility] Leukocyte Esterase Negative Negative 04/17/2023 3:32 AM [facility] Urobilinogen UA Negative Negative mg/dL 04/17/2023 3:32 AM [facility] Urine URINE SPECIMEN OBTAINED BY CLEAN CATCH PROCEDURE / Unknown Collection / Unknown 04/17/2023 3:15 AM RADIOSONDE OPERATOR 04/17/2023 3:24 AM [facility] - 04/17/2023 3:32 AM RADIOSONDE OPERATOR Erin Oliveira [employer] [facility] - URINAL YSIS ORDERABLES [facility] [address] [place] [address], [facility] [phone] * TRANSFUSE RED BLOOD CELL LEUKOREDUCED UNIT(S) (04/17/2023 2:41 AM RADIOSONDE OPERATOR) Sanjana Roth MD NURSING - BLOOD PROD TRANSFUSION * TROPONIN-I HIGH SENSITIVE BASELINE + 1HR (04/16/2023 10:57 PM RADIOSONDE OPERATOR) Only the most recent of3 resultswithin the time period is included. Troponin I High Sensitive <3 <=14 ng/L 04/16/2023 11:42 PM RADIOSONDE OPERATOR [facility] Blood BLOOD SPECIMEN / Unknown Venipuncture / Unknown 04/16/2023 10:57 PM RADIOSONDE OPERATOR 04/16/2023 11:09 PM RADIOSONDE OPERATOR Erin Oliveira [employer] [facility] - CHEMIS TRY ORDERABLES [facility] [address] [place] [address], [facility] [phone] * EGD (04/03/2023 3:55 PM RADIOSONDE OPERATOR) Report Endoscopy POC Endoscopy Department Report _ Patient Name: Sharon Carbajal ?Procedure Date: 04/03/2023 3:55 PM ? Date of : 1965 Classification: Inpatient ? Gender: Female Ethnicity: Not or ? Race: White _ Providers: ?Stephane Wallis Referring MD: ? Amor Arboleda (Referring MD) Procedure: ?Upper GI endoscopy Indications: ?Melena Medications: ?Monitored Anesthesia Care Description of Procedure: After obtaining informed consent, the endoscope was ?passed under direct vision. Throughout the ?procedure, the patient's blood pressure, pulse, and ?oxygen saturations were monitored continuously. The ?GIF-HQ190 was introduced through the mouth, and ?advanced to the second part of duodenum. The upper ?GI endoscopy was accomplished without difficulty. ?The patient tolerated the procedure well. ? Findings: ? Grade I, small (< 5 mm) varices were found in the lower third of the ? esophagus. ? Type 1 isolated gastric varices (IGV1, varices located in the fundus) ? with no bleeding were found in the gastric fundus. There were no ? stigmata of recent bleeding. They were small in largest diameter. ? Mild portal hypertensive gastropathy was found in the stomach. ? The examined duodenum was normal. ? Estimated Blood Loss: ? Estimated blood loss: none. Complications: ?No immediate complications. Impression: ? - Grade I and small (< 5 mm) esophageal varices. ?- Type 1 isolated gastric varices (IGV1, varices ?located in the fundus), without bleeding. ?- Portal hypertensive gastropathy. ?- Normal examined duodenum. ?- No specimens collected. Recommendation: ? - [facility]. ? Attending Participation: ??I personally performed the entire procedure. ? Procedure Code(s): ? --- Professional --- ? 80099, Esophagogastrodu odenoscopy, flexible, transoral; diagnostic, ? including collection of specimen(s) by brushing or washing, when ? performed (separate procedure) Diagnosis Code(s): ?--- Professional --- ?I85.00, Esophageal varices without bleeding ?I86.4, Gastric varices ?K76.6, Portal hypertension ?K31.89, Other diseases of stomach and duodenum ?K92.1, Melena (includes Hematochezia) CPT copyright 2021 [employer]. All rights reserved. The codes documented in this report are preliminary and upon knockdown worker review may be revised to meet current compliance requirements. Stephane Wallis, 04/03/2023 4:25:15 PM Note Initiated On: 04/03/2023 3:55 PM Number of Addenda: 0 ? [facility] ? [address] [facility] 04/03/2023 3:55 PM RADIOSONDE OPERATOR Stephane Wallis MD GI PROCEDURE O RDERABLES Performing Organization Address [facility] Co de Phone Number [facility] * LACTIC ACID BLOOD REFLEX TO REPEAT (04/03/2023 6:27 AM RADIOSONDE OPERATOR) Only the most recent of6 resultswithin the time period is included. Lactic Acid-Stat 1.5 <=2.0 mmol/L 04/03/2023 6:55 AM [facility] Blood BLOOD SPECIMEN / Unknown Venipuncture / Unknown 04/03/2023 6:27 AM RADIOSONDE OPERATOR 04/03/2023 6:31 AM RADIOSONDE OPERATOR Tay Alonso MD LAB - CHEMISTR Y ORDERABLES Performing Organization Address [facility] de Phone Number [address] [address], [facility] [phone] * LACTIC ACID REPEAT REFLEX (04/03/2023 2:06 AM RADIOSONDE OPERATOR) Only the most recent of4 resultswithin the time period is included. Lactic Acid Repeat Reflex Order LACTIC ACID REPEAT HAS BEEN ORDERED 04/03/2023 4:13 AM [facility] Blood BLOOD SPECIMEN / Unknown Venipuncture / Unknown 04/03/2023 2:06 AM RADIOSONDE OPERATOR 04/03/2023 2:43 AM RADIOSONDE OPERATOR Tay Alonso MD LAB - CHEMISTR Y ORDERABLES Performing Organization Address [facility] Co de Phone Number [address] [address], [facility] [phone] * HEMOGLOBIN A1C (04/03/2023 2:06 AM RADIOSONDE OPERATOR) Only the most recent of5 resultswithin the time period is included. Hemoglobin A1c 4.7 <=5.6 % 04/03/2023 10:55 AM [facility] Estimated Average Glucose 88 mg/dL 04/03/2023 10:55 AM RADIOSONDE OPERATOR [facility] Comment: HbA1c Interpretation: Normal : < 5.7% Pre-diabetes: 5.7-6.4% Diabetes: Equal to or greater than 6.5% Test results diagnostic of diabetes should be repeated for confirmation. Treatment target values recommended by ADA and other clinical organizations should be used to evaluate metabolic control in patients. Reference: [place] [employer], Standards of Care in Diabetes -2020 In patients 70 years and older consider HbA1c target range of 7.0-7.5% (Reference: Grey Resendiz et al. JAMDA. 2012) The Sebia assay for the measurement of HbA1c is a National Glycohemoglobin Standardization Program (NGSP) certified method. Blood BLOOD SPECIMEN / Unknown Venipuncture / Unknown 04/03/2023 2:06 AM RADIOSONDE OPERATOR 04/03/2023 2:19 AM RADIOSONDE OPERATOR Tay Alonso MD LAB - CHEMISTR Y ORDERABLES Performing Organization Address City/State/[facility] Co de Phone Number [address] [address], [facility] [phone] * CT LIVER 3 PHASE W PELVIS (04/02/2023 11:19 PM RADIOSONDE OPERATOR) Only the most recent of3 resultswithin the time period is included. Anatomical Region Laterality Modality Abdomen Computed Tomogra phy 04/02/2023 11:2 6 PM RADIOSONDE OPERATOR Impressions 04/03/2023 9:18 AM RADIOSONDE OPERATOR Impression: 1.Hepatic cirrhosis with sequela of portal hypertension including ascites and variceal vessels. No suspicious hepatic observation to suggest hepatocellular carcinoma. 2.Focal intrahepatic bile duct dilatation involving hepatic segment 4A and 8, unchanged. 3.Hyperdense material in the stomach which are unchanged in between the arterial and venous phase and favored to represent ingested material. No definite evidence of active gastrointestinal bleeding on this examination. 4.Patent TIPS. 5.Dmgjq-mv-flxraaar bilateral pleural effusions, unchanged. > Dictated by Alex Khan MD (radiology transporter). IJaneth MD have personally reviewed and interpreted this examination/study. > Interpreting Provider: Janeth Hoover MD on 04/03/2023 9:18 AM Narrative 04/03/2023 9:18 AM RADIOSONDE OPERATOR PROCEDURE: ??CT LIVER 3 PHASE W PELVIS, DATE/TIME OF EXAM: ??04/02/2023 11:20 PM, LOCATION ??[facility] INDICATION: R11.2: Nausea and vomiting, unspecified vomiting type ADDITIONAL CLINICAL INFORMATION: Ordering Provider Reason For Exam: ??s/p TIPS; nv dark tarry stools COMPARISON: CT liver three-phase on 03/10/2023. TECHNIQUE: CT of the abdomen was performed following the uneventful administration of 150 mL of Isovue 370 intravenous contrast according to a three-phase liver protocol. CT of the pelvis was also performed during the portal venous phase according to standard protocol. Findings: Lower Chest: Small to moderate bilateral pleural effusion with associated compressive atelectasis, right greater than left, unchanged compared to prior exam. Hepatobiliary system The liver is shrunken and has a nodular surface, consistent with hepatic cirrhosis. No focal hepatic observations are seen. The portal vein is distended. A patent TIPS is noted. There is intrahepatic bile duct dilatation involving hepatic segment 4A and hepatic segment 8 extending towards the TIPS, unchanged compared prior examination. The common bile duct is mildly prominent, likely secondary to cholecystectomy. The gallbladder is absent. Varices: Splenic, gastric and esophageal varices are present. Spleen: The spleen appears normal. Embolic coils are seen in the splenic hilum obscuring adjacent structures. Ascites: A small volume ascites is seen predominantly perihepatic, slightly increased compared to priors. Hepatic vasculature Arterial anatomy: Replaced right hepatic artery from left gastric is seen. Retroperitoneum Pancreas: The pancreas is mildly atrophic. Adrenals: Normal. Kidneys: No hydronephrosis. Punctate noncalcified renal calculi are seen within the left kidney measuring up to 2-to 3 mm. Multiple sub-5 mm hypoattenuating lesions are seen in the left kidney, too small to characterize but likely representing cysts. Gastrointestinal: A small hiatal hernia is present. The stomach is normal. Curvilinear hyperdense material in the stomach are unchanged in arterial and venous phase and favored to represent ingested material. No definite evidence of active extravasation into gastric or bowel lumen is seen. Normal appendix. Mesentery/Peritoneum/Retroperitoneum: Subcentimeter mesenteric and retroperitoneal lymph nodes are present, nonspecific. There is small to moderate amount of ascites, unchanged. Pelvis: The bladder is partially distended. The uterus is absent. Moderate amount of free pelvic fluid is present. Bones: Bone windows demonstrate no suspicious lytic or blastic lesions. The visible osseous structures are intact. Degenerative changes are seen in the spine. Soft tissues: Body wall edema is redemonstrated and unchanged. Procedure Note Teetee Hoover MD - 04/03/2023 PROCEDURE: CT LIVER 3 PHASE W PELVIS, DATE/TIME OF EXAM: 411:20 PM, LOCATION [facility] INDICATION: R11.2: Nausea and vomiting, unspecified vomiting type ADDITIONAL CLINICAL INFORMATION: Ordering Provider Reason For Exam: s/p TIPS; nv dark tarry stools COMPARISON: CT liver three-phase on 03/10/2023. TECHNIQUE: CT of the abdomen was performed following the uneventful administration of 150 mL of Isovue 370 intravenous contrast according toa three-phase liver protocol. CT of the pelvis was also performed duringthe portal venous phase according to standard protocol. Findings: Lower Chest: Small to moderate bilateral pleural effusion with associated compressive atelectasis, right greater than left, unchanged compared to prior exam. Hepatobiliary system The liver is shrunken and has a nodular surface, consistent with hepatic cirrhosis. No focal hepatic observations are seen. The portal vein is distended. A patent TIPS is noted. There is intrahepatic bile duct dilatation involving hepatic segment 4A and hepatic segment 8 extending towards the TIPS, unchanged compared prior examination. The common bile duct is mildly prominent, likely secondary to cholecystectomy. The gallbladder is absent. Varices: Splenic, gastric and esophageal varices are present. Spleen: The spleen appears normal. Embolic coils are seen in the splenic hilum obscuring adjacent structures. Ascites: A small volume ascites is seen predominantly perihepatic,slightly increased compared to priors. Hepatic vasculature Arterial anatomy: Replaced right hepatic artery from left gastric is seen. Retroperitoneum Pancreas: The pancreas is mildly atrophic. Adrenals: Normal. Kidneys: No hydronephrosis. Punctate noncalcified renal calculi are seen within the left kidney measuring up to 2-to 3 mm. Multiple sub-5 mm hypoattenuating lesions are seen in the left kidney, too small to characterize but likely representing cysts. Gastrointestinal: A small hiatal hernia is present. The stomach is normal. Curvilinear hyperdense material in the stomach are unchanged in arterial and venous phase and favored to represent ingested material. No definite evidenceof active extravasation into gastric or bowel lumen is seen. Normalappendix. Mesentery/Peritoneum/Retroperitoneum: Subcentimeter mesenteric and retroperitoneal lymph nodes are present, nonspecific. There is small to moderate amount of ascites, unchanged. Pelvis: The bladder is partially distended. The uterus is absent. Moderate amount of free pelvic fluid is present. Bones: Bone windows demonstrate no suspicious lytic or blastic lesions. The visible osseous structures are intact. Degenerative changes are seen inthe spine. Soft tissues: Body wall edema is redemonstrated and unchanged. Impression: 1.Hepatic cirrhosis with sequela of portal hypertension includingascites and variceal vessels. No suspicious hepatic observation to suggest hepatocellular carcinoma. 2.Focal intrahepatic bile duct dilatation involving hepatic segment 4Aand 8, unchanged. 3.Hyperdense material in the stomach which are unchanged in between the arterial and venous phase and favored to represent ingested material. No definite evidence of active gastrointestinal bleeding on thisexamination. 4.Patent TIPS. 5.Hgxgr-fv-lqvkzvtb bilateral pleural effusions, unchanged. > Dictated by Alex Khan MD (radiology transporter). I, Janeth Hoover MD have personally reviewed and interpreted this examination/study. > Interpreting Provider: Janeth Hoover MD on 04/03/2023 9:18 AM Tay Alonso MD CT ORDERABLES * (ABNORMAL) HGB HCT PANEL (03/20/2023 3:44 PM RADIOSONDE OPERATOR) Hemoglobin 7.4(L) 11.9 - 15.8 g/dL 03/20/2023 4:12 PM RADIOSONDE OPERATOR [facility] Hematocrit 23.7(L) 34.8 - 46.1 % 03/20/2023 4:12 PM RADIOSONDE OPERATOR [facility] Blood BLOOD SPECIMEN / Unknown Venipuncture / Unknown 03/20/2023 3:44 PM RADIOSONDE OPERATOR 03/20/2023 3:48 PM RADIOSONDE OPERATOR Dewey Villaseñor MD LAB - HEMATOLOGY ORD ERABLES [facility] [address] [place], [place] [id number] [phone] * IR TIPS REVISION (03/19/2023 3:14 PM RADIOSONDE OPERATOR) Anatomical Region Laterality Modality X-Ray Angiograph y 03/19/2023 3:16 PM RADIOSONDE OPERATOR Impressions 03/19/2023 4:06 PM RADIOSONDE OPERATOR Impression: 1. Successful coil embolization of a gastric varix. 2. Successful TIPS revision with balloon angioplasty. Post revision portal systemic gradient was 10 mmHg. Follow up: The patient should be scheduled for Liver Doppler 1 month following the procedure. I, Dr. Jesus, was present and performed/supervised the entire procedure. Drafted by Manuel Cannon DO (Box Order Person) Ferny Whitlock DO have personally reviewed and interpreted this examination/study. > Interpreting Provider: Ferny Jesus DO on 03/19/2023 4:06 PM Narrative 03/19/2023 4:06 PM RADIOSONDE OPERATOR PROCEDURE: ??IR TIPS REVISION DATE/TIME OF EXAM: ??03/19/2023 3:15 PM CLINICAL INFORMATION: None relevant/not provided if blank. Indication: K92.2: Upper GI bleed History: 57-year-old female with a past medical history of a Ruby-Vang tear, hypertension, SANCHEZ cirrhosis complicated by refractory ascites status post TIPS in 12/2017 with most recent revision performed on 02/02/2023 who presented with dark stools. Patient was found to be anemic with hemoglobin of 6.3 requiring blood transfusion. EGD performed on 03/10/2023 demonstrate blood in the gastric fundus and an isolated type I gastric varices without evidence of bleeding. IR consulted for possible TIPS revision and gastric varix embolization. Operators: 1.Dr. Jesus, Attending Physician 2.Dr. Cannon, Resident Physician 3.Hollis Carter, MS3 Anesthesia: 1.Local anesthesia - 10 mL of 1% lidocaine 2.Intravenous analgesia - Fentanyl 50 mcg Additional medication: ?1. ?? Benadryl 50 mg Procedure: 1.Ultrasound-guided access of the right internal jugular vein. 2.Portal venogram with pressure measurements. 3.Gastric varices venogram with subsequent coil embolization 4.Postembolization portal venogram. 5.Revision of the transjugular intrahepatic portosystemic shunt (TIPS) under fluoroscopic guidance with balloon angioplasty. 6.Post-revision hepatic venogram with pressure measurements. Fluoroscopic time: 29.3 minutes ?Contrast: 80 mL of Isovue-300 Procedure in detail: The procedure, risks, and possible complications were explained to the patient in detail, and informed consent was obtained. The patient was brought to the angiography suite and placed supine on the procedure table. Psychotherapist Counselor radiograph of the abdomen was obtained, which demonstrated a TIPS in the right upper quadrant. The patient received intraprocedural intravenous Fentanyl and Benadryl. A qualified radiology nurse monitored the patient s vital signs throughout the procedure. The right neck was prepped and draped in the usual sterile manner. Limited ultrasound of the right internal jugular vein demonstrated patency and compressibility. A ty scale image was documented. After instillation of 1% lidocaine for local anesthesia, a small skin incision was made in the right lower neck. Under real time ultrasound guidance, the right internal jugular vein was accessed using a micropuncture needle. The needle entry was documented. After a series of exchanges, an 8-Turkmen vascular sheath was placed. Right atrial pressure was measured through the vascular sheath and was found to be 9 mmHg. A 5-Turkmen MPA catheter was advanced through the TIPS into the main portal vein and a venogram was obtained, which demonstrated a patent TIPS with no clear stenosis. Main portal vein pressure measured 20 mmHg for a portosystemic gradient (portal - RA) of 11 mmHg. The MPA catheter was then advanced into the splenic vein and a venogram was performed which demonstrated a gastric varix. The gastric varix was cannulated with a coaxial 2.4 Turkmen Progreat microcatheter and two 0.018 4 mm Concerto coils (10 cm and 8 cm) were deployed. Postembolization venogram demonstrated occlusion of the gastric varix. After successful coil embolization of the gastric varix, we returned our attention to the TIPS stent. Given the slight increase in portosystemic gradient, previously 8 mmHg, and history of possible gastric varix bleeding, a decision was made to revise the TIPS stent. A 10 mm x 4 cm Conquest balloon was advanced to the proximal aspect of the stent near the IVC junction and venoplasty was performed. Post-revision hepatic venogram demonstrated patent TIPS with brisk clearance of contrast. Post-revision pressures were: Right atrium: 16 mmHg Portal vein: 26 mmHg Portosystemic gradient (portal-RA): 10 mmHg The sheath was removed, hemostasis was achieved with manual compression, and sterile dressing was applied. The patient tolerated the procedure well and was transferred to the inpatient floor in stable condition. There were no immediate complications associated with the procedure. Procedure Note Ferny Jesus MD - 03/19/2023 PROCEDURE: IR TIPS REVISION DATE/TIME OF EXAM: 03/19/2023 3:15 PM CLINICAL INFORMATION: None relevant/not provided if blank. Indication: K92.2: Upper GI bleed History: 57-year-old female with a past medical history of aMallory-Vang tear, hypertension, SANCHEZ cirrhosis complicated by refractory ascitesstatus post TIPS in 12/2017 with most recent revision performed on 02/02/2023who presented with dark stools. Patient was found to be anemic withhemoglobin of 6.3 requiring blood transfusion. EGD performed on 03/10/2023emonstrate blood in the gastric fundus and an isolated type I gastric variceswithout evidence of bleeding. IR consulted for possible TIPS revision andgastric varix embolization. Operators: 1.Dr. Jesus, Attending Physician 2.Dr. Cannon, Resident Physician 3.Hollis Carter, MS3 Anesthesia: 1.Local anesthesia - 10 mL of 1% lidocaine 2.Intravenous analgesia - Fentanyl 50 mcg Additional medication: 1. Benadryl 50 mg Procedure: 1.Ultrasound-guided access of the right internal jugular vein. 2.Portal venogram with pressure measurements. 3.Gastric varices venogram with subsequent coil embolization 4.Postembolization portal venogram. 5.Revision of the transjugular intrahepatic portosystemic shunt (TIPS) under fluoroscopic guidance with balloon angioplasty. 6.Post-revision hepatic venogram with pressure measurements. Fluoroscopic time: 29.3 minutes Contrast: 80 mL of Isovue-300 Procedure in detail: The procedure, risks, and possible complications were explained to the patient in detail, and informed consent was obtained. The patient was brought to the angiography suite and placed supine on the proceduretable. Psychotherapist Counselor radiograph of the abdomen was obtained, which demonstrated a TIPSin the right upper quadrant. The patient received intraprocedural intravenous Fentanyl and Benadryl.A qualified radiology nurse monitored the patient s vital signs throughout the procedure. The right neck was prepped and draped in the usual sterile manner.Limited ultrasound of the right internal jugular vein demonstrated patency and compressibility. A ty scale image was documented. After instillationof 1% lidocaine for local anesthesia, a small skin incision was made in the right lower neck. Under real time ultrasound guidance, the rightinternal jugular vein was accessed using a micropuncture needle. The needle entry was documented. After a series of exchanges, an 8-Turkmen vascular sheath was placed. Right atrial pressure was measured through the vascular sheath and was found to be 9 mmHg. A 5-Turkmen MPA catheter was advanced through the TIPS into the mainportal vein and a venogram was obtained, which demonstrated a patent TIPS withno clear stenosis. Main portal vein pressure measured 20 mmHg for a portosystemic gradient (portal - RA) of 11 mmHg. The MPA catheter was then advanced into the splenic vein and a venogramwas performed which demonstrated a gastric varix. The gastric varix was cannulated with a coaxial 2.4 Turkmen Progreat microcatheter and two 0.0184 mm Concerto coils (10 cm and 8 cm) were deployed. Postembolizationvenogram demonstrated occlusion of the gastric varix. After successful coil embolization of the gastric varix, we returned our attention to the TIPS stent. Given the slight increase in portosystemic gradient, previously 8 mmHg, and history of possible gastric varix bleeding, a decision was made to revise the TIPS stent. A 10 mm x 4 cm Conquest balloon was advanced to the proximal aspect of the stent nearthe IVC junction and venoplasty was performed. Post-revision hepaticvenogram demonstrated patent TIPS with brisk clearance of contrast. Post-revision pressures were: Right atrium: 16 mmHg Portal vein: 26 mmHg Portosystemic gradient (portal-RA): 10 mmHg The sheath was removed, hemostasis was achieved with manual compression, and sterile dressing was applied. The patient tolerated the procedurewell and was transferred to the inpatient floor in stable condition. Therewere no immediate complications associated with the procedure. Impression: 1. Successful coil embolization of a gastric varix. 2. Successful TIPS revision with balloon angioplasty. Post revisionportal systemic gradient was 10 mmHg. Follow up: The patient should be scheduled for Liver Doppler 1 month following the procedure. IDr. Jesus, was present and performed/supervised the entire procedure. Drafted by Manuel Cannon DO (Box Order Person) I, Ferny Jesus DO have personally reviewed and interpreted this examination/study. > Interpreting Provider: Ferny Jesus DO on 03/19/2023 4:06 PM Jason Sal PA-C IR ORDERABLES * TRANSFUSE RED BLOOD CELL LEUKOREDUCED UNIT(S) (03/12/2023 2:42 AM RADIOSONDE OPERATOR) Jim Rangel MD NURSING - BLOOD PROD TRANSFUSION * TRANSFUSE RED BLOOD CELL LEUKOREDUCED UNIT(S) (03/11/2023 12:04 AM RADIOSONDE OPERATOR) Jim Rangel MD NURSING - BLOOD PROD TRANSFUSION * EGD (03/10/2023 11:25 AM RADIOSONDE OPERATOR) Report Endoscopy POC Endoscopy Department Report __ _ Patient Name: Sharon Carbajal ?Procedure Date: 03/10/2023 11:25 AM ? Date of : 1965 Classification: Outpatient ?Gender: Female Ethnicity: Not or ? Race: White __ _ Providers: ?Jose Guadalupe Morales MD Referring MD: ? Amor Arboleda (Referring MD) Procedure: ?Upper GI endoscopy Indications: ?Melena Medications: ?Monitored Anesthesia Care Description of Procedure: [...] anticoagulant or antiplatelet agents. ASA ?Grade Assessment: IV - A patient with severe ?systemic disease that is a constant threat to life. ?After reviewing the risks and benefits, the patient ?was deemed in satisfactory condition to undergo the ?procedure. ?- Prior Aspirin/ NSAID therapy: The patient has ?taken no aspirin or NSAID medications. ?After obtaining informed consent, the endoscope was ?passed under direct vision. Throughout the ?procedure, the patient's blood pressure, pulse, and ?oxygen saturations were monitored continuously. The ?[id number]-[id number] was introduced through the mouth, and ?advanced to the second part of duodenum. The upper ?GI endoscopy was accomplished without difficulty. ?The patient tolerated the procedure well. ? Findings: ? The examined esophagus was normal. ? Red blood was found in the gastric fundus. ? Type 1 isolated gastric varices (IGV1, varices located in the fundus) ? with stigmata of prior treatment and no bleeding were found in the ? gastric fundus. There were stigmata of recent bleeding. They were medium ? in largest diameter. ? The exam of the stomach was otherwise normal. ? The examined duodenum was normal. ? Estimated Blood Loss: ? Estimated blood loss: none. Complications: ?No immediate complications. Impression: ? - Normal esophagus. ?- Red blood in the gastric fundus. ?- Type 1 isolated gastric varices (IGV1, varices ?located in the fundus), previously treated and ?without bleeding. ?- Normal examined duodenum. ?- No specimens collected. Recommendation: ? - Return patient to [facility] for [facility] care, ?consider transfer to ICU given fresh blood. ?- NPO. ?- Continue present medications. ?- Refer to an interventional radiologist. ? Attending Participation: ??I personally performed the entire procedure. ? Procedure Code(s): ? --- Professional --- ? 98678, Esophagogastroduode noscopy, flexible, transoral; diagnostic, ? including collection of specimen(s) by brushing or washing, when ? performed (separate procedure) Diagnosis Code(s): ?--- Professional --- ?K92.2, Gastrointestinal hemorrhage, unspecified ?I86.4, Gastric varices ?K92.1, Melena (includes Hematochezia) CPT copyright 2021 [employer]. All rights reserved. The codes documented in this report are preliminary and upon knockdown worker review may be revised to meet current compliance requirements. Jose Guadalupe Morales MD 03/10/2023 12:03:32 PM This report has been signed electronically. Note Initiated On: 03/10/2023 11:25 AM Number of Addenda: 0 ? [facility] ? [address] [place] [address] [facility] 03/10/2023 11:2 5 AM RADIOSONDE OPERATOR Jose Guadalupe Morales MD GI PROCEDURE ORDERAB LES [facility] * Central Line (03/08/2023 11:11 PM RADIOSONDE OPERATOR) Narrative Sanjana Roth MD - 03/08/2023 11:11 PM RADIOSONDE OPERATOR Dimitris Head MD ? 03/08/2023 11:12 PM Central Line Date/Time: 03/08/2023 11:11 PM Performed by: Dimitris Head MD Authorized by: Sanjana Roth MD ?? Consent: ??Consent obtained: ??Verbal ??Consent given by: ??Patient ??Risks discussed: ??Arterial puncture, incorrect placement, bleeding, infection and pneumothorax [facility] protocol: ??Procedure explained and questions answered to patient or proxy's satisfaction: yes ?Relevant documents present and verified: yes ?Test results available: yes ?Imaging studies available: yes ?Required blood products, implants, devices, and special equipment available: yes ?Site/side marked: yes ?Immediately prior to procedure, a time out was called: yes ?Patient identity confirmed: ??Verbally with patient and arm band Pre-procedure details: ??Indication(s): insufficient peripheral access ?Hand hygiene: Hand hygiene performed prior to insertion ?Sterile barrier technique: All elements of maximal sterile technique followed ?Skin preparation: ??Chlorhexidine ??Skin preparation agent: Skin preparation agent completely dried prior to procedure ?? Sedation: ??Sedation type: ??None Anesthesia: ??Anesthesia method: ??Local infiltration ??Local anesthetic: ??Lidocaine 1% WITH epi Procedure details: ??Location: ??R internal jugular ??Patient position: ??Reverse Trendelenburg ??Procedural supplies: ??Triple lumen ??Catheter size: ??7 Fr ??Ultrasound guidance: yes ?Ultrasound guidance timing: real time ?Sterile ultrasound techniques: Sterile gel and sterile probe covers were used ?Number of attempts: ??1 ??Successful placement: yes ?? Post-procedure details: ??Post-procedure: ??Dressing applied and line sutured ??Assessment: ??Blood return through all ports, free fluid flow, no pneumothorax on x-ray and placement verified by x-ray ??Procedure completion: ??Tolerated well, no immediate complications Sanjana Roth MD PROCEDURE/MINOR SURG ICAL ORDERABLES * TRANSFUSE RED BLOOD CELL LEUKOREDUCED UNIT(S) (03/08/2023 6:37 PM RADIOSONDE OPERATOR) Sanjana Roth MD NURSING - BLOOD PROD TRANSFUSION * TRANSFUSE RED BLOOD CELL LEUKOREDUCED UNIT(S) (03/08/2023 7:46 AM RADIOSONDE OPERATOR) Sanjana Roth MD NURSING - BLOOD PROD TRANSFUSION * TRANSFUSE RED BLOOD CELL LEUKOREDUCED UNIT(S) (03/08/2023 6:10 AM RADIOSONDE OPERATOR) Sanjana Roth MD NURSING - BLOOD PROD TRANSFUSION * SARS-COV-2 (COVID-19)+INFLU A+B PCR RAPID (03/07/2023 3:19 PM RADIOSONDE OPERATOR) COVID-19 PCR Not detected Not detected 03/07/19 4:14 PM [facility] Influenza A Rapid KELLY Not Detected Not Detected 03/07/2023 4:14 PM [facility] Influenza B KELLY Rapid Not Detected Not Detected 03/07/2023 4:14 PM [facility] Microbiology SPECIMEN FROM NASOPHARYNGEAL STRUCTURE / Unknown Collection / Unknown 03/07/2023 3:19 PM RADIOSONDE OPERATOR 03/07/2023 3:29 PM RADIOSONDE OPERATOR [facility] - 03/07/2023 4:14 PM RADIOSONDE OPERATOR Influenza assay performed by Nucleic Acid Amplification. Results do not exclude the possibility of a mixed viral infection. NOTE: ??Detecting and identifying specific viral nucleic acids from individuals exhibiting signs and symptoms of respiratory infection aids in the diagnosis of respiratory infection, if used in conjunction with other clinical and laboratory findings. The results of this test should not be used as the sole basis for diagnosis, treatment, or patient management decisions. This nucleic acid amplification assay performance was validated by [facility]. This test has been authorized by the Food and Drug administration (FDA)under an Emergency??Use Authorization (EUA). This test has been validated in accordance with the FDA's guidance document Policy for Diagnostic Testing in Laboratories Certified to perform High Complexity Testing under CLIA prior to Emergency Use Authorization for Coronavirus Disease-2019 during the Public Health Emergency issued on May 01, 2019. FDA independent review of this validation is pending. This test is only authorized for the duration of time the declaration that circumstances exist justifying the authorization of emergency use of in vitro diagnostic tests for detection of SARS-CoV-2 virus and/or diagnosis of COVID-19 infection under section 564(b)(1) of the Act, 21 U.S.C 360bbb-3 (b)(1), unless the authorization is terminated or revoked sooner. Fact Sheets for this EUA assay are available upon request. Erin Oliveira [facility] - MICROB IOLOGY ORDERABLES [address] [address], [facility] [phone] * B-TYPE NATRIURETIC PEPTIDE (03/07/2023 3:19 PM RADIOSONDE OPERATOR) Only the most recent of3 resultswithin the time period is included. BNP 41 <100 pg/mL 03/07/2023 4:02 PM RADIOSONDE OPERATOR [facility] Comment: A decision threshold of 100 pg/mL has been demonstrated to provide the maximal combination of sensitivity, specificity and predictive value for the diagnosis of congestive heart failure (CHF). ??Virtually all patients with no evidence of CHF have BNP values less than 100 pg/mL. A BNP value greater than 100 pg/mL is consistent with the diagnosis of CHF in the appropriate clinical setting. In a study of 693 patients (male and female) with diagnosed CHF, the following values were determined based on the NYHA functional classification system: NYHA Functional Class ?Mean Valule (pg/mL) ? % >100 pg/mL ?I ?320 ? 58.1 ?II ? 432 ? 73.0 ?III ?656 ? 79.0 ?IV ?1635 ? 98.3 ? Blood BLOOD SPECIMEN / Unknown Venipuncture / Unknown 03/07/2023 3:19 PM RADIOSONDE OPERATOR 03/07/2023 3:30 PM RADIOSONDE OPERATOR Erin Oliveira [facility] [employer] [facility] - CHEMIS TRY ORDERABLES Performing Organization Address [facility]/State/[facility] Co de Phone Number [facility] [address] [place] [address], [facility] [phone] * LIPASE BLOOD (03/07/2023 3:19 PM RADIOSONDE OPERATOR) Only the most recent of4 resultswithin the time period is included. Lipase 22 8 - 78 U/L 03/07/2023 4:01 PM RADIOSONDE OPERATOR [facility] Blood BLOOD SPECIMEN / Unknown Venipuncture / Unknown 03/07/2023 3:19 PM RADIOSONDE OPERATOR 03/07/2023 3:31 PM RADIOSONDE OPERATOR Narrative [facility] - 03/07/2023 4:01 PM RADIOSONDE OPERATOR Lipase results from the [employer] Alinity analyzer may not be comparable with other methodologies. Erin Evaulices Oliveira [facility] [employer] [facility] - CHEMIS TRY ORDERABLES Performing Organization Address City/State/[facility] Co de Phone Number [facility] [address] [place] [address], [facility] [phone] * EGD (02/16/2023 1:10 PM RADIOSONDE OPERATOR) Report Endoscopy POC Endoscopy Department Report __ _ Patient Name: Sharon Carbajal ?Procedure Date: 02/16/2023 1:10 PM ? Date of : 1965 Classification: Inpatient ? Gender: Female Ethnicity: Not or ? Race: White __ _ Providers: ?Jim Fried (Fellow) Referring MD: ? Procedure: ?Upper GI endoscopy Indications: ?Melena Medications: ?Fentanyl 150 micrograms IV, Midazolam 4 mg IV Description of Procedure: Pre-Anesthesia Assessment: ?- Prior [...] anticoagulant or antiplatelet agents. ASA ?Grade Assessment: II - A patient with mild systemic ?disease. After reviewing the risks and benefits, ?the patient was deemed in satisfactory condition to ?undergo the procedure. ?After obtaining informed consent, the endoscope was ?passed under direct vision. Throughout the ?procedure, the patient's blood pressure, pulse, and ?oxygen saturations were monitored continuously. The ?[id number] was introduced through the mouth, and ?advanced to the second part of duodenum. The upper ?GI endoscopy was accomplished without difficulty. ?The patient tolerated the procedure well. ? Findings: ? Grade I varices were found in the distal esophagus. They were small in ? size. ? There is no endoscopic evidence of bleeding or inflammation in the ? entire esophagus. ? Large Type 1 isolated gastric varices (IGV1, varices located in the ? fundus) with large overlying clot however no active bleeding underneath ? once clot was cleared. ? Small Type 1 gastroesophageal varices (GOV1, esophageal varices which ? extend along the lesser curvature) with no bleeding were found at the ? gastroesophageal junction. There were no stigmata of recent bleeding. ? Moderate portal hypertensive gastropathy was found in the entire ? examined stomach. ? The first portion of the duodenum and second portion of the duodenum ? were normal. ? Estimated Blood Loss: ? Estimated blood loss: none. Complications: ?No immediate complications. Impression: ? - Grade I esophageal varices. ?- Type 1 isolated gastric varices (IGV1, varices ?located in the fundus), without bleeding. ?- Type 1 gastroesophageal varices (GOV1, esophageal ?varices which extend along the lesser curvature), ?without bleeding. ?- Portal hypertensive gastropathy. ?- Normal first portion of the duodenum and second ?portion of the duodenum. ?- No specimens collected. Recommendation: ? - Return patient to ICU for ongoing care. ?- Advance diet as tolerated. ?- Continue present medications. ?- Continue octreotide for 72 hours ?- Engage IR to review US w/ doppler and reassess ?TIPS given above findings ? Attending Participation: ??I was present and participated during the entire ?procedure, including non-gambino portions. ? Procedure Code(s): ? --- Professional --- ? 12959, Esophagogastroduode noscopy, flexible, transoral; diagnostic, ? including collection of specimen(s) by brushing or washing, when ? performed (separate procedure) Diagnosis Code(s): ?--- Professional --- ?I85.00, Esophageal varices without bleeding ?I86.4, Gastric varices ?K76.6, Portal hypertension ?K31.89, Other diseases of stomach and duodenum ?K92.1, Melena (includes Hematochezia) CPT copyright 2021 [employer]. All rights reserved. The codes documented in this report are preliminary and upon knockdown worker review may be revised to meet current compliance requirements. Stephane Ahgermán Wallis, 02/16/2023 4:20:11 PM Note Initiated On: 02/16/2023 1:10 PM Number of Addenda: 0 ? [facility] ? [address] [place] [address] [facility] 02/16/2023 1:10 PM RADIOSONDE OPERATOR Leonidas De La O MD GI PROCEDURE ORDERAB LES Performing Organization Address City/State/[facility] Co de Phone Number [facility] * TRANSFUSE RED BLOOD CELL LEUKOREDUCED UNIT(S) (02/16/2023 5:45 AM RADIOSONDE OPERATOR) Flaco Kasper MD NURSING - BLOOD PROD TRANSFUSION * TRANSFUSE RED BLOOD CELL LEUKOREDUCED UNIT(S) (02/16/2023 1:24 AM RADIOSONDE OPERATOR) Raphael Byrne MD NURSING - BLOOD PROD TRANSFUSION * TRANSFUSE RED BLOOD CELL LEUKOREDUCED UNIT(S) (02/15/2023 8:31 PM RADIOSONDE OPERATOR) Raphael Byrne MD NURSING - BLOOD PROD TRANSFUSION * AMMONIA (02/15/2023 5:04 PM RADIOSONDE OPERATOR) Only the most recent of3 resultswithin the time period is included. Ammonia 34 <=72 umol/L 02/15/2023 5:36 PM RADIOSONDE OPERATOR [facility] Blood BLOOD SPECIMEN / Unknown Venipuncture / Unknown 02/15/2023 5:04 PM RADIOSONDE OPERATOR 02/15/2023 5:14 PM RADIOSONDE OPERATOR Raphael Byrne MD LAB - CHEMISTRY CORNELIA GAVIN [address] [address], [facility] [phone] * TRANSFUSE RED BLOOD CELL LEUKOREDUCED UNIT(S) (02/06/2023 7:00 AM RADIOSONDE OPERATOR) Leonidas De La O MD NURSING - BLOOD PROD TRANSFUSION * TSH REFLEX FREE T4 (02/03/2023 4:17 AM RADIOSONDE OPERATOR) Only the most recent of3 resultswithin the time period is included. TSH 0.728 0.350 - 4.940 uIU/mL 02/03/2023 5:21 AM RADIOSONDE OPERATOR [facility] Blood BLOOD SPECIMEN / Unknown Venipuncture / Unknown 02/03/2023 4:17 AM RADIOSONDE OPERATOR 02/03/2023 4:29 AM RADIOSONDE OPERATOR Audrey Nowak MD LAB - CHEMISTRY CORNELIA GAVIN Performing Organization Address City/[facility]/ZIP Co de Phone Number [address] [address], [facility] [phone] * TRANSFUSE RED BLOOD CELL LEUKOREDUCED UNIT(S) (09/23/2022 2:42 PM CDT) Raj Delgado MD NURSING - BLOOD PRO D TRANSFUSION * (ABNORMAL) FIBRINOGEN ACTIVITY (09/23/2022 5:06 AM CDT) Only the most recent of9 resultswithin the time period is included. Fibrinogen Clauss 94(L) 200 - 400 mg/dL 09/23/2022 6:09 AM CDT [facility] Blood BLOOD SPECIMEN / Unknown Venipuncture / Unknown 09/23/2022 5:06 AM CDT 09/23/2022 5:33 AM CDT Darrel Howard MD LAB - COAGULATION OR DERABLES Performing Organization Address [facility]/ZIP Co de Phone Number [facility] [address] [place] [address], [place] [phone] * TRANSFUSE RED BLOOD CELL LEUKOREDUCED UNIT(S) (09/22/2022 9:01 PM CDT) Raj Delgado MD NURSING - BLOOD PRO D TRANSFUSION * TRANSFUSE RED BLOOD CELL LEUKOREDUCED UNIT(S) (09/22/2022 11:41 AM CDT) Raj Delgado MD NURSING - BLOOD PRO D TRANSFUSION * PREPARE CRYOPRECIPITATE UNIT (S), 10 Units (09/21/2022 1:17 AM CDT) Unit Description N/A [facility] Blood Bank BLOOD SPECIMEN / Unknown 09/17/2022 11:34 PM CDT Ferny Rodriguez MD LAB - BLOOD BANK ORD ERABLES Performing Organization Address [facility] Co de Phone Number [facility] [address] [place] [address], [place] [phone] * PREPARE PLATELET PHERESIS UNIT(S), 4 Units (09/21/2022 1:17 AM CDT) Unit Description N/A [facility] Blood Bank BLOOD SPECIMEN / Unknown 09/17/2022 11:34 PM CDT Ferny Rodriguez MD LAB - BLOOD BANK ORD ERABLES Performing Organization Address City/[facility]/ZIP Co de Phone Number [facility] [address] [place] [address], [place] [phone] * EGD (09/19/2022 2:39 PM CDT) Report Endoscopy POC Endoscopy Department Report __ _ Patient Name: Sharon Carbajal ?Procedure Date: 09/19/2022 2:39 PM ? Date of : 1965 Classification: Inpatient ? Gender: Female Ethnicity: Not or ? Race: White __ _ Providers: ?Josse Diaz (Fellow), Osman ?David (Fellow), Jim Cannon (Fellow) Referring MD: ? Procedure: ?Upper GI endoscopy Indications: ?Acute post hemorrhagic anemia, Hematochezia Medications: ?Propofol per ICU team Description of Procedure: Pre-Anesthesia Assessment: ?- Prior [...] anticoagulant or antiplatelet agents. ASA ?Grade Assessment: IV - A patient with severe ?systemic disease that is a constant threat to life. ?After reviewing the risks and benefits, the patient ?was deemed in satisfactory condition to undergo the ?procedure. ?After obtaining informed consent, the endoscope was ?passed under direct vision. Throughout the ?procedure, the patient's blood pressure, pulse, and ?oxygen saturations were monitored continuously. The ?[id number] was introduced through the mouth, and ?advanced to the second part of duodenum. The ?patient tolerated the procedure well. The upper GI ?endoscopy was technically difficult and complex due ?to excessive bleeding and presence of blood clot. ?Successful completion of the procedure was aided by ?withdrawing the scope and replacing with the ?therapeutic endoscope, withdrawing the scope and ?replacing with the dual channel endoscope and ?lavage. ? Findings: ? Esophagogastric landmarks were identified ? Dark red blood was found in the lower third of the esophagus, likely ? refluxing from the stomach. ? Four endoclips were found in the lower third of the esophagus. One of ? which came off during the procedure. There was no active bleeding noted ? from the site. ? Dark red blood with significant clot burden was found in the gastric ? fundus. After extensive irrigation and suctions of the blood and blood ? clots, there was no underlying active bleeding noted, although there was ? evidence of minor bleeding with irrigation. Lavage of the area was ? performed using a large amount of sterile water, resulting in clearance ? with good visualization. ? Severe portal hypertensive gastropathy was found in the entire examined ? stomach. ? The examined duodenum was normal. ? A guide wire was inserted into the stomach and the endoscope was ? removed. A 12 Fr orogastric tube was advanced over the guide wire into ? the stomach. Placement was confirmed by X-ray. ? Estimated Blood Loss: ? Estimated blood loss: none. Complications: ?No immediate complications. Impression: ? - Esophagogastric landmarks identified. ?- Dark red blood in the lower third of the ?esophagus. ?- Four endoclips were found in the distal ?esophagus, one of which fell off during the ?procedure. ?- Dark red blood with significant clot burden in ?the gastric fundus. No active bleeding was noted ?after irrigation and suctioning of the area. ?- Portal hypertensive gastropathy. ?- Normal examined duodenum. ?- Feeding tube placement was successfully performed. ?- No active bleeding was identified in this exam. ?Recently treated MWT likley source of UGI bleeding. Recommendation: ? - Continue to monitor patient in ICU for ongoing ?care. ?- Please obtain KUB for enteral tube placement. ?- Avoid blood thinners for the next 48 hours, if ?possible. ?- Keep NPO today, if hgb stable tomorrow, can ?advance as tolerated. ?- Continue present medications, including IV PPI ?BID. ?- Continue to monitor serial CBCs, transfuse for ?hgb < 7. ?- Continue to monitor for signs/symptoms of ?worsening GI bleeding. ? Attending Participation: ??I was present and participated during the entire ?procedure, including non-gambino portions. ? Procedure Code(s): ? --- Professional --- ? 92389, Esophagogastroduode noscopy, flexible, transoral; with insertion ? of intraluminal tube or catheter Diagnosis Code(s): ?--- Professional --- ?K22.89, Other specified disease of esophagus ?Z97.8, Presence of other specified devices ?K92.2, Gastrointestinal hemorrhage, unspecified ?K76.6, Portal hypertension ?K31.89, Other diseases of stomach and duodenum ?K92.1, Melena (includes Hematochezia) CPT copyright 2021 [employer]. All rights reserved. The codes documented in this report are preliminary and upon knockdown worker review may be revised to meet current compliance requirements. Dagoberto Walker, 09/19/2022 5:19:27 PM Note Initiated On: 09/19/2022 2:39 PM Number of Addenda: 0 ? [facility] ? [address] [place], [place] [address] [place] [address] PROVATION 09/19/2022 2:39 PM CDT Darrel Howard MD GI PROCEDURE ORDERAB LES [facility] PROVATION * TRANSFUSE RED BLOOD CELL LEUKOREDUCED UNIT(S) (09/19/2022 7:24 AM CDT) Darrel Howard MD NURSING - BLOOD PROD TRANSFUSION * (ABNORMAL) TEG 6 GLOBAL HEMOSTASIS W/ LYSIS (09/18/2022 9:10 AM CDT) Only the most recent of2 resultswithin the time period is included. Citrated Kaolin R (Reaction Time) 3.7(L) 4.6 - 9.1 min 09/18/2022 10:21 AM CDT [facility] Comment:CK R result below no rmal range. Consistent with hypercoagulable clotting factors. Citrated Kaolin LY30 (Lysis) 0.0 0.0 - 2.6 % 09/18/2022 10:21 AM CDT [facility] Citrated Functional Fibrinogen MA (Max Amplitude) 13.0(L) 15.0 - 32.0 mm 09/18/2022 10:21 AM T [facility] Comment:CFF MA below normal range. Consistent with decreased fibrinogen contribution to clot strength. Citrated RapidTEG MA (Max Amplitude) 41.8(L) 52.0 - 70.0 mm 09/18/2022 10:21 AM T [facility] Comment:CLINICAL UNIT EDUCATOR MA below normal range. Consistent with reduced clot strength from platelets or fibrinogen. Compare with CFF MA. Blood BLOOD SPECIMEN / Unknown Venipuncture / Unknown 09/18/2022 9:10 AM CDT 09/18/2022 9:15 AM CDT Ferny Rodriguez MD LAB - HEMATOLOGY ORD ERABLES [facility] [address] [place] [address], [facility] [phone] * TRANSFUSE RED BLOOD CELL LEUKOREDUCED UNIT(S) (09/18/2022 5:02 AM CDT) Ferny Rodriguez MD NURSING - BLOOD PROD TRANSFUSION * TRANSFUSE RED BLOOD CELL LEUKOREDUCED UNIT(S) (09/18/2022 2:31 AM CDT) Ferny Rodriguez MD NURSING - BLOOD PROD TRANSFUSION * (ABNORMAL) CALCIUM IONIZED WHOLE BLOOD (09/17/2022 11:21 PM CDT) Calcium Ionized 1.17 mmol/L 09/17/2022 11:37 PM CDT [facility] pH 7.39 7.35 - 7.45 pH 09/17/2022 11:37 PM CDT [facility] Ionized Calcium pH Adjusted 1.17(L) 1.19 - 1.34 mmol/L 09/17/2022 11:37 PM CDT [facility] Blood BLOOD SPECIMEN / Unknown Venipuncture / Unknown 09/17/2022 11:21 PM CDT 09/17/2022 11:33 PM CDT Ferny Rodriguez MD LAB - CHEMISTRY CORNELIA GAVIN Performing Organization Address City/[facility]/ZIP Co de Phone Number [facility] [address] [place] [address], [facility] [phone] * (ABNORMAL) PT-INR (03/26/2022 12:33 PM RADIOSONDE OPERATOR) Only the most recent of7 resultswithin the time period is included. Pathologist [facility] INR 1.3(H) [facility] Comment: Reference Range ? 0.9-1.1 Moderate-intensity Warfarin Therapy 2.0-3.0 Higher-intensity Warfarin Therapy ?? 3.0-4.0 PT 12.7(H) 9.0 - 11.5 sec [facility] Comment: For additional information, please refer to http://education.[employer]/faq/ZZL181 (This link is being provided for informational/ educational purposes only.) Test Performed at: [address] ??[id number] TABITHA MASON MD Blood BLOOD SPECIMEN / Unknown 03/26/2022 12:33 PM RADIOSONDE OPERATOR 03/26/2022 12:33 PM RADIOSONDE OPERATOR Dagoberto Walker MD LAB - COAGULATION OR DERABLES [address] [address] * (ABNORMAL) HEPATIC FUNCTION PANEL (03/26/2022 12:33 PM RADIOSONDE OPERATOR) Only the most recent of3 resultswithin the time period is included. Protein Total 5.4(L) 6.1 - 8.1 g/dL [facility] Albumin 2.6(L) 3.6 - 5.1 g/dL [facility] Globulin Total 2.8 1.9 - 3.7 g/dL (calc) [facility] Albumin/Globulin Ratio 0.9(L) 1.0 - 2.5 (calc) [facility] Bilirubin Total 1.2 0.2 - 1.2 mg/dL [facility] Bilirubin Direct 0.3(H) < OR = 0.2 mg/dL [facility] Bilirubin Indirect 0.9 0.2 - 1.2 mg/dL (calc) [facility] Alkaline Phosphatase 140 37 - 153 U/L [facility] AST 65(H) 10 - 35 U/L [facility] ALT 34(H) 6 - 29 U/L [facility] Comment: Test Performed at: [facility] [address] [place], [place] ??[id number] NERIS MORRISON DO,MPH Blood BLOOD SPECIMEN / Unknown 03/26/2022 12:33 PM RADIOSONDE OPERATOR 03/26/2022 12:33 PM RADIOSONDE OPERATOR Dagoberto Walker MD LAB - CHEMISTRY CORNELIA GAVIN [facility] Organization Address City/State/[facility] Co wy Phone Number [facility] [address] [place] [address] * XR KNEE RIGHT 4VW OR MORE (12/10/2021 1:19 PM CDT) Anatomical Region Laterality Modality Lower Extremity Radiographic Allie ging 12/10/2021 2:17 PM CDT Narrative 12/10/2021 2:38 PM CDT PROCEDURE: ??XR KNEE RIGHT 4VW OR MORE, DATE/TIME OF EXAM: ??12/10/2021 1:19 PM, LOCATION ??[facility] INDICATION: M25.561: Right knee pain, unspecified chronicity ADDITIONAL CLINICAL INFORMATION: Ordering Provider Reason For Exam: ??knee pain COMPARISON: None. FINDINGS/IMPRESSION: No acute fracture or dislocation is noted. There is mild joint space narrowing of the medial compartment. A small joint effusion is present. Report dictated by Alex Khan MD (radiology transporter). I, America Castro MD have personally reviewed and interpreted this examination/study. > Interpreting Provider: America Castro MD on 12/10/2021 2:38 PM Procedure Note America Castro MD - 12/10/2021 PROCEDURE: XR KNEE RIGHT 4VW OR MORE, DATE/TIME OF EXAM: :19 PM, LOCATION [facility] INDICATION: M25.561: Right knee pain, unspecified chronicity ADDITIONAL CLINICAL INFORMATION: Ordering Provider Reason For Exam: knee pain COMPARISON: None. FINDINGS/IMPRESSION: No acute fracture or dislocation is noted. There is mild joint space narrowing of the medial compartment. A small joint effusion is present. Report dictated by Alex Khan MD (radiology transporter). I, America Castro MD have personally reviewed and interpreted this examination/study. > Interpreting Provider: America Castro MD on :38 PM Janette [facility] ORDERABLES * CENTROMERE B ANTIBODIES (06/12/2021 1:05 PM CDT) Only the most recent of3 resultswithin the time period is included. Centromere B Antibody <1.0 NEG <1.0 NEG AI [facility] Comment: Test Performed at: [facility] [address] [place], [place] ??[address] NERIS MORRISON DO,MPH 06/12/2021 1:05 PM CDT 06/12/2021 1:05 PM CDT Yessi Cabrera MD LAB - SEROLOGY ORDERABLES [facility] [address] [place] [address] * RNA POLYMERASE III ANTIBODY IGG (06/12/2021 1:05 PM CDT) Only the most recent of3 resultswithin the time period is included. RNA Polymerase 3 Antibody <20 <20 Units [facility] Comment: Test Performed at: [facility] [address] [place], [place] ??[phone] CAROLYNE RILEY MD,PHD,FRANKIE 06/12/2021 1:05 PM CDT 06/12/2021 1:05 PM CDT Yessi Cabrera MD LAB - SEROLOGY ORDERABLES Performing Organization Address [facility] de Phone Number [facility] [address] [place] [address] * SCLERODERMA 70 (SCL) ANTIBODY (06/12/2021 1:05 PM CDT) Only the most recent of3 resultswithin the time period is included. Pathologist [facility] SCL-70 Antibody <1.0 NEG <1.0 NEG AI [facility] Comment: Test Performed at: [facility] ??[phone] NERIS MORRISON DO,MPH 06/12/2021 1:05 PM CDT 06/12/2021 1:05 PM CDT Yessi Cabrera MD LAB - CHEMISTRY ORDERABLES Performing Organization Address [facility] de Phone Number [facility] [address] [place] [address] * COMPLEMENT ACTIVITY TOTAL (CH50) (07/10/2020 12:24 PM CDT) Pathologist [facility] Complement Activity Total CH50 47.5 38.7 - 89.9 U/mL 07/11/2020 11:40 PM CDT [employer] ([facility]) Comment: REFERENCE INTERVAL: Complement Activity Total, (CH50) ? 38.6 U/mL or less ..........Low ? 38.7-89.9 U/mL .............Normal ? 90.0 U/mL or greater .......High Performed By: [facility] [address] [place] [address] [place] Administrator: Yessica De Leon MD Blood BLOOD SPECIMEN / Unknown Lab Venipuncture / Unknown 07/10/2020 12:24 PM CDT 07/10/2020 1:02 PM CDT Yessi Cabrera MD LAB - CHEMISTRY ORDERABLES [facility] ([facility]) [place] [address], [facility] * (ABNORMAL) URINALYSIS W/MICROSCOPIC NO CULTURE (07/10/2020 12:24 PM CDT) Only the most recent of2 resultswithin the time period is included. Color UA Yellow Straw, Yellow, Colorless 07/10/2020 1:04 PM T [facility] Clarity UA Slt Cloudy Clear, t Cloudy 07/10/2020 1:04 PM T [facility] Specific [place] UA 1.011 1.005 - 1.030 07/10/2020 1:04 PM [facility] pH UA 7.0 5.0 - 8.0 pH 07/10/2020 1:04 PM [facility] Protein UA Negative Negative mg/dL 07/10/2020 1:04 PM [facility] Glucose UA Negative Negative mg/dL 07/10/2020 1:04 PM [facility] Ketone UA Negative Negative mg/dL 07/10/2020 1:04 PM [facility] Bilirubin UA Negative Negative mg/dL 07/10/2020 1:04 PM [facility] Blood UA Negative Negative 07/10/2020 1:04 PM [facility] Nitrite UA Negative Negative 07/10/2020 1:04 PM [facility] Leukocyte Esterase 1+(A) Negative 07/10/2020 1:04 PM [facility] Urobilinogen UA 4.0(A) Negative mg/dL 07/10/2020 1:04 PM [facility] RBC UA 0-2 None Seen, 0-2, 3-5 /HPF 07/10/2020 1:04 PM [facility] WBC UA 21-50(A) None Seen, 0-5 /HPF 07/10/2020 1:04 PM [facility] Bacteria UA 1+(A) None, Trace /HPF 07/10/2020 1:04 PM [facility] Squamous Epithelial Cells UA 6-10(A) None Seen, 0-2 /HPF 07/10/2020 1:04 PM CDT [facility] Mucus UA 1+ None, 1+ /LPF 07/10/2020 1:04 PM CDT [facility] Yeast Budding UA Occasional( A) None /HPF 07/10/2020 1:04 PM CDT [facility] Amorphous Crystals Rare Rare, Occasional, Few, Moderate, None /HPF 07/10/2020 1:04 PM CDT [facility] Urine URINE SPECIMEN OBTAINED BY CLEAN CATCH PROCEDURE / Unknown Collection / Unknown 07/10/2020 12:24 PM CDT 07/10/2020 12:52 PM CDT Narrative [facility] - 07/10/2020 1:04 PM CDT Yessi Cabrera MD LAB - URINALYSI S ORDERABLES Performing Organization Address City/State/[facility] Co de Phone Number [facility] [address] [place] [address], [facility] [phone] * SS-A (SJOGREN'S) 52+60 ANTIBODIES (07/10/2020 12:24 PM CDT) SS-A 52 Antibody 2 0 - 40 AU/mL 07/11/2020 5:58 PM CDT [facility] ([facility]) Comment: INTERPRETIVE INFORMATION: SSA-52 (Ro52) (TYLOR) Antibody, IgG ??29 AU/mL or Less ............. Negative ??30 - 40 AU/mL ................ Equivocal ??41 AU/mL or Greater .......... Positive SSA-52 (Ro52) and/or SSA-60 (Ro60) antibodies are associated with a diagnosis of Sjogren syndrome, systemic lupus erythematosus (SLE), and systemic sclerosis. SSA-52 antibody overlaps significantly with the major SSc-related antibodies. SSA-52 (Ro52) antibody occurs frequently in patients with inflammatory myopathies, often in the presence of interstitial lung disease. SS-A 60 Antibody 0 0 - 40 AU/mL 07/11/2020 5:58 PM CDT [employer] ([facility]) Comment: REFERENCE INTERVAL: SSA-60 (Ro60) (TYLOR) Antibody, IgG ??29 AU/mL or Less ............. Negative ??30 - 40 AU/mL ................ Equivocal ??41 AU/mL or Greater .......... Positive Performed By: [facility] [address] [place] [address] [place] Administrator: Yessica De Leon MD Blood BLOOD SPECIMEN / Unknown Lab Venipuncture / Unknown 07/10/2020 12:24 PM CDT 07/10/2020 12:55 PM CDT Yessi Cabrera MD LAB - CHEMISTRY ORDERABLES Performing Organization Address [facility] Co de Phone Number [facility]) [address] [place] [address] * CHROMATIN ANTIBODY (07/10/2020 12:24 PM CDT) Only the most recent of2 resultswithin the time period is included. Chromatin Antibody 12 0 - 19 Units 07/12/2020 5:45 PM CDT [facility] ([facility]) Comment: INTERPRETIVE INFORMATION: Chromatin Antibody, IgG ??19 Units or less: Negative ??20 - 60 Units: Moderate Positive ??61 Units or greater: Strong Positive The presence of anti-chromatin antibodies may be useful in the diagnosis of systemic lupus erythematosus (SLE) or drug-induced lupus (DIL) and have been reported to be predictive of lupus nephritis, especially when antibody levels are high. Performed By: [facility] [address] [place] [address] [place] Administrator: Yessica De Leon MD Blood BLOOD SPECIMEN / Unknown Lab Venipuncture / Unknown 07/10/2020 12:24 PM CDT 07/10/2020 1:02 PM CDT Yessi Cabrera MD LAB - SEROLOGY ORDERABLES Performing Organization Address [facility] de Phone Number [facility]) [address] [place], [place] [address] * SMOOTH MUSCLE ANTIBODY W REFLEX TITER (07/10/2020 12:24 PM CDT) F-Actin Antibody IgG 15 0 - 19 Units 07/12/2020 6:11 AM CDT [employer] ([facility]) Comment: If F-Actin (Smooth Muscle) Antibody, IgG is negative, the Smooth Muscle Antibody titer by IFA is not performed. REFERENCE INTERVAL: F-Actin (Smooth Muscle) Antibody, IgG by ?[facility] ??19 Units or less ....... Negative ??20 - 30 Units .......... Weak Positive-Suggest repeat ? testing in two to three weeks ? with fresh specimen. ??31 Units or greater..... Positive-Suggestive of ? autoimmune hepatitis type 1 ? or chronic active hepatitis. F-actin IgG antibodies have been shown to have increased sensitivity for autoimmune hepatitis (AIH) but lower specificity than smooth muscle antibodies (SMA). F-actin IgG antibodies can also be seen in SMA-negative disease controls (non-AIH), especially in patients with primary biliary cirrhosis and chronic hepatitis C infections. Some patients with AIH may be SMA-positive but negative for F-actin IgG. Consider testing for SMA by IFA if suspicion for AIH is strong. Performed By: [facility] [address] [place] [address] [place] Administrator: Yessica De Leon MD Blood BLOOD SPECIMEN / Unknown Lab Venipuncture / Unknown 07/10/2020 12:24 PM CDT 07/10/2020 12:55 PM CDT Yessi Cabrera MD LAB - SEROLOGY ORDERABLES Performing Organization Address City/State/[facility] de Phone Number [facility] ([facility]) [address] * MITOCHONDRIAL ANTIBODY SCREEN (07/10/2020 12:24 PM CDT) Only the most recent of2 resultswithin the time period is included. Mitochondrial M2 Antibody 3.2 0.0 - 24.9 Units 07/12/2020 6:12 AM CDT [facility] ([facility]) Comment: REFERENCE INTERVAL: Mitochondrial (M2) Antibody, IgG ?20.0 Units or less ......... Negative ??20.1 - 24.9 Units........... Equivocal ??25.0 Units or greater....... Positive Anti-mitochondrial antibodies (AMA) are thought to be present in 90-95% of patients with primary biliary cholangitis (PBC). However, the frequency of detected antibodies may be cohort or assay dependent, as lower sensitivities have been reported. Not all PBC patients are positive for AMA; some patients may be positive for SP100 and/or GP210 antibodies. A negative result does not rule out PBC. Performed By: [facility] [address] [place] [address] [place] Administrator: Yessica De Leon MD Blood BLOOD SPECIMEN / Unknown Lab Venipuncture / Unknown 07/10/2020 12:24 PM CDT 07/10/2020 12:55 PM CDT Yessi Cabrera MD LAB - CHEMISTRY ORDERABLES Performing Organization Address [facility] de Phone Number [facility] ([facility]) [address] * CYCLIC CITRUL PEPTIDE ANTIBODY IGG/IGA (CCP) (07/10/2020 12:24 PM CDT) CCP Antibodies IgG/IgA 4 0 - 19 units 07/11/2020 11:06 PM CDT [facility] ([facility]) Comment: ?Negative ? <20 ?Weak positive ?20 - 39 ?Moderate positive ??40 - 59 ?Strong positive ?>59 Blood BLOOD SPECIMEN / Unknown Lab Venipuncture / Unknown 07/10/2020 12:24 PM CDT 07/10/2020 12:55 PM CDT Narrative [facility] ([facility]) - 07/11/2020 11:06 PM CDT Performed at: ??01 - [facility] [address] ??[id number] Runner On: Lia Perez MD, Phone: ??[phone] Yessi Cabrera MD LAB - SEROLOGY ORDERABLES Performing Organization Address [facility] de Phone Number [facility] ([facility]) [address] [place] [address] * URIC ACID BLOOD (07/10/2020 12:24 PM CDT) [facility] Uric Acid 3.4 2.6 - 7.2 mg/dL 07/10/2020 1:18 PM CDT [facility] Blood BLOOD SPECIMEN / Unknown Lab Venipuncture / Unknown 07/10/2020 12:24 PM CDT 07/10/2020 12:52 PM CDT Yessi Cabrera MD LAB - CHEMISTRY ORDERABLES Performing Organization Address [facility]/ZIP Co de Phone Number [address] [address], [facility] [phone] * VELEZ (SM) ANTIBODY TYLOR (07/10/2020 12:24 PM CDT) Only the most recent of2 resultswithin the time period is included. Pathologist [facility] Velez (TYLOR) Antibody 0 0 - 40 AU/mL 07/12/2020 11:57 AM CDT [facility] ([facility]) Comment: INTERPRETIVE INFORMATION: Veelz (TYLOR) Antibody, IgG ??29 AU/mL or Less ............. Negative ??30 - 40 AU/mL ................ Equivocal ??41 AU/mL or Greater .......... Positive Velez antibody is highly specific (greater than 90 percent) for systemic lupus erythematosus (SLE) but only occurs in 30-35 percent of SLE cases. The presence of antibodies to Velez has variable associations with SLE clinical manifestations. Performed By: [facility] [employer] [address] [place] [address] [place] Administrator: Yessica De Leon MD Blood BLOOD SPECIMEN / Unknown Lab Venipuncture / Unknown 07/10/2020 12:24 PM CDT 07/10/2020 1:02 PM CDT Yessi Cabrera MD LAB - CHEMISTRY ORDERABLES [facility] ([facility]) [address] [place] [address], [facility] * PM/SCL-100 ANTIBODY IGG (07/10/2020 12:24 PM CDT) [facility] PM/Scl 100 Antibody IgG Negative Negative 07/12/2020 2:48 PM CDT [facility] ([facility]) Comment: INTERPRETIVE INFORMATION: PM/Scl-100 Antibody, IgG by ?Immunoblot The presence of PM/Scl-100 IgG antibody along with a positive AFSHIN IFA nucleolar pattern is associated with connective tissue diseases such as polymyositis (PM), dermatomyositis (DM), systemic sclerosis (SSc), and polymyositis/systemic sclerosis overlap syndrome. The clinical relevance of PM/Scl-100 IgG antibody with a negative AFSHIN IFA nucleolar pattern is unknown. PM/Scl-100 is the main target epitope of the PM/Scl complex, although antibodies to other targets not detected by this assay may occur. This test was developed and its performance characteristics determined by [facility]. It has not been cleared or approved by the [place] Food and Drug Administration. This test was performed in a CLIA certified laboratory and is intended for clinical purposes. Performed By: [facility] [address] [place] [address] [place] Administrator: Yessica De Leon MD Blood BLOOD SPECIMEN / Unknown Lab Venipuncture / Unknown 07/10/2020 12:24 PM CDT 07/10/2020 1:02 PM CDT Yessi Cabrera MD LAB - SEROLOGY ORDERABLES Performing Organization Address City/[facility]/ZIP Co de Phone Number [facility]) [address] [place] [address] * HISTONE ANTIBODY (07/10/2020 12:24 PM CDT) [facility] Histone Antibody IgG 0.7 0.0 - 0.9 Units 07/13/2020 7:07 AM CDT [facility] ([facility]) Comment: INTERPRETIVE INFORMATION: Histone Ab, IgG ??0.9 Units or less ............ Negative ??1.0 - 1.5 Units .............. Weak Positive ??1.6 - 2.5 Units .............. Moderate Positive ??2.6 Units or greater ......... Strong Positive Performed By: [facility] [address] [place] [address] [place] Administrator: Yessica De Leon MD Blood BLOOD SPECIMEN / Unknown Lab Venipuncture / Unknown 07/10/2020 12:24 PM CDT 07/10/2020 12:56 PM CDT Yessi Cabrera MD LAB - CHEMISTRY ORDERABLES [facility]) [address] [place] [address] * SS-B (SJOGREN'S) ANTIBODY (07/10/2020 12:24 PM CDT) Only the most recent of2 resultswithin the time period is included. Pathologist [facility] SS-B Antibody 0 0 - 40 AU/mL 07/12/2020 11:57 AM CDT [employer] ([facility]) Comment: INTERPRETIVE INFORMATION: SSB (La) (TYLOR) Ab, IgG ??29 AU/mL or Less ............. Negative ??30 - 40 AU/mL ................ Equivocal ??41 AU/mL or Greater .......... Positive SSB (La) antibody is seen in 50-60% of Sjogren syndrome cases and is specific if it is the only TYLOR antibody present. 15-25% of patients with systemic lupus erythematosus (SLE) and 5-10% of patients with progressive systemic sclerosis (PSS) also have this antibody. Performed By: [facility] [address] [place] [address] [place] Administrator: Yessica De Leon MD Blood BLOOD SPECIMEN / Unknown Lab Venipuncture / Unknown 07/10/2020 12:24 PM CDT 07/10/2020 1:02 PM CDT Yessi Cabrera MD LAB - CHEMISTRY ORDERABLES [facility]) [address] [place] [address], [facility] * DNA ANTIBODY DOUBLE STRANDED (07/10/2020 12:24 PM CDT) Only the most recent of2 resultswithin the time period is included. [facility] dsDNA Antibody None Detected None Detected 07/12/2020 4:54 PM CDT [facility] [employer] ([facility]) Comment: INTERPRETIVE INFORMATION: Double-Stranded DNA (dsDNA) Antibody, IgG by AMRIK Positivity for anti-double stranded DNA (anti-dsDNA) IgG antibody is a diagnostic criterion of systemic lupus erythematosus (SLE). Specimens are initially screened by enzyme-linked immunosorbent assay (AMRIK). All AMRIK results reported as detected (positive) are confirmed by a highly specific IFA titer (Crithidia luciliae indirect fluorescent test [WAQAS]). Some patients with early or inactive SLE may be positive for anti-dsDNA IgG by AMRIK but negative by WAQAS. If the patient is negative by WAQAS but positive by AMRIK and clinical suspicion remains, consider antinuclear antibody (AFSHIN) testing by IFA. Additional information and recommendations for testing may be found at http://www.[email or web address]/Topics/AutoimmuneDz/[email or web address]/i ndex.html. Performed By: [facility] [address] [place] [address] [place] Administrator: Yessica De Leon MD Blood BLOOD SPECIMEN / Unknown Lab Venipuncture / Unknown 07/10/2020 12:24 PM CDT 07/10/2020 12:55 PM CDT Yessi Cabrera MD LAB - HEMATOLOG Y ORDERABLES Performing Organization Address [facility] Co de Phone Number [facility]) [address] [place] [address] * ALDOLASE (07/10/2020 12:24 PM CDT) Only the most recent of2 resultswithin the time period is included. [facility] Aldolase 4.9 1.5 - 8.1 U/L 07/11/2020 7:23 PM CDT [facility] ([facility]) Comment: REFERENCE INTERVAL: Aldolase Access complete set of age- and/or gender-specific reference intervals for this test in the [facility] Laboratory Test Directory ([employer]). Performed By: [facility] [employer] [address] [place] [address] [place] Administrator: Yessica De Leon MD Blood BLOOD SPECIMEN / Unknown Lab Venipuncture / Unknown 07/10/2020 12:24 PM CDT 07/10/2020 1:02 PM CDT Yessi Cabrera MD LAB - CHEMISTRY ORDERABLES Performing Organization Address [facility] Co de Phone Number [facility]) [address] [place] [address] * COMPLEMENT C4 (07/10/2020 12:24 PM CDT) Only the most recent of2 resultswithin the time period is included. [facility] Complement C4 16 15 - 57 mg/dL 07/10/2020 1:18 PM CDT [facility] Blood BLOOD SPECIMEN / Unknown Lab Venipuncture / Unknown 07/10/2020 12:24 PM CDT 07/10/2020 12:52 PM CDT Yessi Cabrera MD LAB - SEROLOGY ORDERABLES [address] [address], [place] [phone] * (ABNORMAL) LDH BLOOD (07/10/2020 12:24 PM CDT) Pathologist [facility] LDH Total 272(H) 125 - 243 Units/L 07/10/2020 1:19 PM CDT [facility] Blood BLOOD SPECIMEN / Unknown Lab Venipuncture / Unknown 07/10/2020 12:24 PM CDT 07/10/2020 12:52 PM CDT Yessi Cabrera MD LAB - CHEMISTRY ORDERABLES Performing Organization Address City/[facility]/ZIP Co de Phone Number [address] [address], [place] [phone] * CK BLOOD (07/10/2020 12:24 PM CDT) Only the most recent of2 resultswithin the time period is included. Pathologist [facility] CK Total 142 30 - 200 Units/L 07/10/2020 1:19 PM CDT [facility] Blood BLOOD SPECIMEN / Unknown Lab Venipuncture / Unknown 07/10/2020 12:24 PM CDT 07/10/2020 12:52 PM CDT Yessi Cabrera MD LAB - CHEMISTRY ORDERABLES [address] [address], [place] [phone] * IGM BLOOD (07/10/2020 12:24 PM CDT) Only the most recent of2 resultswithin the time period is included. IgM 84 22 - 293 mg/dL 07/10/2020 1:21 PM CDT [facility] Blood BLOOD SPECIMEN / Unknown Lab Venipuncture / Unknown 07/10/2020 12:24 PM CDT 07/10/2020 12:56 PM CDT Yessi Cabrera MD LAB - CHEMISTRY ORDERABLES [address] [address], [place] [phone] * IGG BLOOD (07/10/2020 12:24 PM CDT) Only the most recent of2 resultswithin the time period is included. IgG 1,686 540-1,822 mg/dL 07/10/2020 1:21 PM CDT [facility] Blood BLOOD SPECIMEN / Unknown Lab Venipuncture / Unknown 07/10/2020 12:24 PM CDT 07/10/2020 12:56 PM CDT Yessi Cabrera MD LAB - CHEMISTRY ORDERABLES Performing Organization Address City/[facility]/ZIP Co de Phone Number [address] [address], [place] [phone] * IGA BLOOD (07/10/2020 12:24 PM CDT) Only the most recent of2 resultswithin the time period is included. IgA 387 87 - 534 mg/dL 07/10/2020 1:21 PM CDT [facility] Blood BLOOD SPECIMEN / Unknown Lab Venipuncture / Unknown 07/10/2020 12:24 PM CDT 07/10/2020 12:56 PM CDT Yessi Cabrera MD LAB - CHEMISTRY ORDERABLES Performing Organization Address City/[facility]/ZIP Co de Phone Number [address] [address], [place] [phone] * COMPLEMENT C3 (07/10/2020 12:24 PM CDT) Only the most recent of2 resultswithin the time period is included. Complement C3 89 82 - 193 mg/dL 07/10/2020 1:18 PM CDT [facility] Blood BLOOD SPECIMEN / Unknown Lab Venipuncture / Unknown 07/10/2020 12:24 PM CDT 07/10/2020 12:52 PM CDT Yessi Cabrera MD LAB - CHEMISTRY ORDERABLES [facility] [address] [place] [address], [facility] [phone] * XR FOOT RIGHT 2VW (07/10/2020 11:17 AM CDT) Anatomical Region Laterality Modality Ankle / Foot Radiographic Allie ging 07/10/2020 11:5 2 AM CDT Impressions 07/10/2020 1:00 PM CDT IMPRESSION: No acute fracture, dislocation, or significant arthritis identified. Dictated by Rand Roberson MD (radiology transporter). I, Dr. SAURAV NAYLOR MD have personally reviewed and interpreted this examination/study. This report was electronically signed by SAURAV NAYLOR MD ??on 07/10/2020 1:00 PM . Narrative 07/10/2020 1:00 PM CDT EXAMINATION: 1. XR FOOT RIGHT 2VW 2. XR FOOT LEFT 2VW HISTORY: M25.50: Arthralgia, unspecified joint R76.8: Positive AFSHIN (antinuclear antibody) R76.8: Other specified abnormal immunological findings in serum COMPARISON: No prior study is available for comparison at the time of this dictation. FINDINGS: Right foot: The osseous structures are intact and well aligned without acute fracture or dislocation. Os peroneum is noted. Calcaneal spur is noted. The joint spaces are preserved. Bone density and texture are normal. No soft tissue swelling is present. Left foot: The osseous structures are intact and well aligned without acute fracture or dislocation. Os peroneum is noted. Calcaneal spur is noted. The joint spaces are preserved. Bone density and texture are normal. No soft tissue swelling is present. Procedure Note Saurav Naylor MD - 07/10/2020 EXAMINATION: 1. XR FOOT RIGHT 2VW 2. XR FOOT LEFT 2VW HISTORY: M25.50: Arthralgia, unspecified joint R76.8: Positive AFSHIN (antinuclear antibody) R76.8: Other specified abnormal immunological findings in serum COMPARISON: No prior study is available for comparison at the time ofthis dictation. FINDINGS: Right foot: The osseous structures are intact and well aligned without acutefracture or dislocation. Os peroneum is noted. Calcaneal spur is noted. The joint spaces are preserved. Bone density and texture are normal. No softtissue swelling is present. Left foot: The osseous structures are intact and well aligned without acutefracture or dislocation. Os peroneum is noted. Calcaneal spur is noted. The joint spaces are preserved. Bone density and texture are normal. No softtissue swelling is present. IMPRESSION: No acute fracture, dislocation, or significant arthritis identified. Dictated by Rand Roberson MD (radiology transporter). IDr. SAURAV MD have personally reviewed and interpreted this examination/study. This report was electronically signed by SAURAV NAYLOR MD on07/10/2020 1:00 PM . Yessi Cabrera MD DIAGNOSTIC IMAG ING ORDERABLES * XR FOOT LEFT 2VW (07/10/2020 11:17 AM CDT) Anatomical Region Laterality Modality Ankle / Foot Radiographic Allie ging 07/10/2020 11:5 2 AM CDT Impressions 07/10/2020 1:00 PM CDT IMPRESSION: No acute fracture, dislocation, or significant arthritis identified. Dictated by Rand Roberson MD (radiology transporter). Dr. SAURAV Whitlock MD have personally reviewed and interpreted this examination/study. This report was electronically signed by SAURAV NAYLOR MD ??on 07/10/2020 1:00 PM . Narrative 07/10/2020 1:00 PM CDT EXAMINATION: 1. XR FOOT RIGHT 2VW 2. XR FOOT LEFT 2VW HISTORY: M25.50: Arthralgia, unspecified joint R76.8: Positive AFSHIN (antinuclear antibody) R76.8: Other specified abnormal immunological findings in serum COMPARISON: No prior study is available for comparison at the time of this dictation. FINDINGS: Right foot: The osseous structures are intact and well aligned without acute fracture or dislocation. Os peroneum is noted. Calcaneal spur is noted. The joint spaces are preserved. Bone density and texture are normal. No soft tissue swelling is present. Left foot: The osseous structures are intact and well aligned without acute fracture or dislocation. Os peroneum is noted. Calcaneal spur is noted. The joint spaces are preserved. Bone density and texture are normal. No soft tissue swelling is present. Procedure Note Saurav Naylor MD - 07/10/2020 EXAMINATION: 1. XR FOOT RIGHT 2VW 2. XR FOOT LEFT 2VW HISTORY: M25.50: Arthralgia, unspecified joint R76.8: Positive AFSHIN (antinuclear antibody) R76.8: Other specified abnormal immunological findings in serum COMPARISON: No prior study is available for comparison at the time ofthis dictation. FINDINGS: Right foot: The osseous structures are intact and well aligned without acutefracture or dislocation. Os peroneum is noted. Calcaneal spur is noted. The joint spaces are preserved. Bone density and texture are normal. No softtissue swelling is present. Left foot: The osseous structures are intact and well aligned without acutefracture or dislocation. Os peroneum is noted. Calcaneal spur is noted. The joint spaces are preserved. Bone density and texture are normal. No softtissue swelling is present. IMPRESSION: No acute fracture, dislocation, or significant arthritis identified. Dictated by Rand Roberson MD (radiology transporter). I, Dr. SAURAV NAYLOR MD have personally reviewed and interpreted this examination/study. This report was electronically signed by SAURAV NAYLOR MD on07/10/2020 1:00 PM . Yessi Cabrera MD DIAGNOSTIC IMAG ING ORDERABLES * XR HAND RIGHT 2VW (07/10/2020 11:17 AM CDT) Anatomical Region Laterality Modality Wrist / Hand Radiographic Allie ging 07/10/2020 11:3 8 AM CDT Impressions 07/10/2020 12:58 PM CDT FINDINGS/IMPRESSION: RIGHT: The osseous structures are intact and well aligned without acute fracture or dislocation. The joint spaces are preserved. No focal destructive osseous processes are identified. No soft tissue swelling is present. LEFT: The osseous structures are intact and well aligned without acute fracture or dislocation. Subchondral cysts are noted in the third and fourth proximal interphalangeal joints as well as the fourth distal interphalangeal joint. ??No focal destructive osseous processes are identified. No soft tissue swelling is present. IMPRESSION: 1. Right hand: Unremarkable right hand radiographs. 2. Left hand: Subchondral cysts in several interphalangeal joints consistent with mild arthritis, without evidence of joint narrowing. This report was dictated by Rand Roberson M.D. (radiology transporter). I, Dr. SAURAV NAYLOR MD have personally reviewed and interpreted this examination/study. This report was electronically signed by SAURAV NAYLOR MD ??on 07/10/2020 12:58 PM . Narrative 07/10/2020 12:58 PM CDT EXAMINATION: 1. ??AP & lateral radiographs of the right hand. 2. AP & lateral radiographs of the left hand. HISTORY: M25.50: Arthralgia, unspecified joint R76.8: Positive AFSHIN (antinuclear antibody) R76.8: Other specified abnormal immunological findings in serum COMPARISON: [facility] x-ray dated 12/08/2014 Procedure Note Saurav Naylor MD - 07/10/2020 EXAMINATION: 1. AP & lateral radiographs of the right hand. 2. AP & lateral radiographs of the left hand. HISTORY: M25.50: Arthralgia, unspecified joint R76.8: Positive AFSHIN (antinuclear antibody) R76.8: Other specified abnormal immunological findings in serum COMPARISON: [facility] x-ray dated 12/08/2014 FINDINGS/IMPRESSION: RIGHT: The osseous structures are intact and well aligned without acute fracture or dislocation. The joint spaces are preserved. No focal destructive osseous processes are identified. No soft tissue swelling is present. LEFT: The osseous structures are intact and well aligned without acute fracture or dislocation. Subchondral cysts are noted in the third and fourth proximal interphalangeal joints as well as the fourth distal interphalangeal joint. No focal destructive osseous processes are identified. No soft tissue swelling is present. IMPRESSION: 1. Right hand: Unremarkable right hand radiographs. 2. Left hand: Subchondral cysts in several interphalangeal joints consistent with mild arthritis, without evidence of joint narrowing. This report was dictated by Rand Roberson M.D. (radiology transporter). Dr. SAURAV Whitlock MD have personally reviewed and interpreted this examination/study. This report was electronically signed by SAURAV NAYLOR MD on07/10/2020 12:58 PM . Yessi Cabrera MD DIAGNOSTIC IMAG ING ORDERABLES * XR HAND LEFT 2VW (07/10/2020 11:17 AM CDT) Anatomical Region Laterality Modality Wrist / Hand Radiographic Allie ging 07/10/2020 11:3 8 AM CDT Impressions 07/10/2020 12:58 PM CDT FINDINGS/IMPRESSION: RIGHT: The osseous structures are intact and well aligned without acute fracture or dislocation. The joint spaces are preserved. No focal destructive osseous processes are identified. No soft tissue swelling is present. LEFT: The osseous structures are intact and well aligned without acute fracture or dislocation. Subchondral cysts are noted in the third and fourth proximal interphalangeal joints as well as the fourth distal interphalangeal joint. ??No focal destructive osseous processes are identified. No soft tissue swelling is present. IMPRESSION: 1. Right hand: Unremarkable right hand radiographs. 2. Left hand: Subchondral cysts in several interphalangeal joints consistent with mild arthritis, without evidence of joint narrowing. This report was dictated by Rand Roberson M.D. (radiology transporter). Dr. SAURAV Whitlock MD have personally reviewed and interpreted this examination/study. This report was electronically signed by SAURAV NAYLOR MD ??on 07/10/2020 12:58 PM . Narrative 07/10/2020 12:58 PM CDT EXAMINATION: 1. ??AP & lateral radiographs of the right hand. 2. AP & lateral radiographs of the left hand. HISTORY: M25.50: Arthralgia, unspecified joint R76.8: Positive AFSHIN (antinuclear antibody) R76.8: Other specified abnormal immunological findings in serum COMPARISON: [facility] x-ray dated 12/08/2014 Procedure Note Saurav Naylor MD - 07/10/2020 EXAMINATION: 1. AP & lateral radiographs of the right hand. 2. AP & lateral radiographs of the left hand. HISTORY: M25.50: Arthralgia, unspecified joint R76.8: Positive AFSHIN (antinuclear antibody) R76.8: Other specified abnormal immunological findings in serum COMPARISON: [facility] x-ray dated 12/08/2014 FINDINGS/IMPRESSION: RIGHT: The osseous structures are intact and well aligned without acute fracture or dislocation. The joint spaces are preserved. No focal destructive osseous processes are identified. No soft tissue swelling is present. LEFT: The osseous structures are intact and well aligned without acute fracture or dislocation. Subchondral cysts are noted in the third and fourth proximal interphalangeal joints as well as the fourth distal interphalangeal joint. No focal destructive osseous processes are identified. No soft tissue swelling is present. IMPRESSION: 1. Right hand: Unremarkable right hand radiographs. 2. Left hand: Subchondral cysts in several interphalangeal joints consistent with mild arthritis, without evidence of joint narrowing. This report was dictated by Rand Roberson M.D. (radiology transporter). I, Dr. SAURAV NAYLOR MD have personally reviewed and interpreted this examination/study. This report was electronically signed by SAURAV NAYLOR MD on07/10/2020 12:58 PM . Yessi Cabrera MD DIAGNOSTIC IMAG ING ORDERABLES * XR ELBOW RIGHT 2VW (07/10/2020 11:17 AM CDT) Anatomical Region Laterality Modality Upper Extremity Radiographic Allie ging 07/10/2020 11:5 0 AM CDT Impressions 07/10/2020 1:00 PM CDT IMPRESSION: No acute fracture, dislocation, or significant arthritis identified in both elbows. Dictated by Rand Roberson MD (radiology transporter). Dr. SAURAV Whitlock MD have personally reviewed and interpreted this examination/study. This report was electronically signed by SAURAV NAYLOR MD ??on 07/10/2020 1:00 PM . Narrative 07/10/2020 1:00 PM CDT EXAMINATION: 1. XR ELBOW RIGHT 2VW 2. XR ELBOW LEFT 2VW HISTORY: M25.50: Arthralgia, unspecified joint R76.8: Positive AFSHIN (antinuclear antibody) R76.8: Other specified abnormal immunological findings in serum COMPARISON: No prior study is available for comparison at the time of this dictation. FINDINGS: Right elbow: The osseous structures are intact and well aligned without acute fracture or dislocation. The joint spaces are preserved. No joint effusion is seen. No soft tissue swelling is present. Left elbow: The osseous structures are intact and well aligned without acute fracture or dislocation. The joint spaces are preserved. No joint effusion is seen. No soft tissue swelling is present. Procedure Note Saurav Naylor MD - 07/10/2020 EXAMINATION: 1. XR ELBOW RIGHT 2VW 2. XR ELBOW LEFT 2VW HISTORY: M25.50: Arthralgia, unspecified joint R76.8: Positive AFSHIN (antinuclear antibody) R76.8: Other specified abnormal immunological findings in serum COMPARISON: No prior study is available for comparison at the time ofthis dictation. FINDINGS: Right elbow: The osseous structures are intact and well aligned without acutefracture or dislocation. The joint spaces are preserved. No joint effusion isseen. No soft tissue swelling is present. Left elbow: The osseous structures are intact and well aligned without acutefracture or dislocation. The joint spaces are preserved. No joint effusion isseen. No soft tissue swelling is present. IMPRESSION: No acute fracture, dislocation, or significant arthritis identified in both elbows. Dictated by Rand Roberson MD (radiology transporter). Dr. SAURAV Whitlock MD have personally reviewed and interpreted this examination/study. This report was electronically signed by SAURAV NAYLOR MD on07/10/2020 1:00 PM . Yessi Cabrera MD DIAGNOSTIC IMAG ING ORDERABLES * XR ELBOW LEFT 2VW (07/10/2020 11:17 AM CDT) Anatomical Region Laterality Modality Upper Extremity Radiographic Allie ging 07/10/2020 11:5 0 AM CDT Impressions 07/10/2020 1:00 PM CDT IMPRESSION: No acute fracture, dislocation, or significant arthritis identified in both elbows. Dictated by Rand Roberson MD (radiology transporter). I, Dr. SAURAV NAYLOR MD have personally reviewed and interpreted this examination/study. This report was electronically signed by SAURAV NAYLOR MD ??on 07/10/2020 1:00 PM . Narrative 07/10/2020 1:00 PM CDT EXAMINATION: 1. XR ELBOW RIGHT 2VW 2. XR ELBOW LEFT 2VW HISTORY: M25.50: Arthralgia, unspecified joint R76.8: Positive AFSHIN (antinuclear antibody) R76.8: Other specified abnormal immunological findings in serum COMPARISON: No prior study is available for comparison at the time of this dictation. FINDINGS: Right elbow: The osseous structures are intact and well aligned without acute fracture or dislocation. The joint spaces are preserved. No joint effusion is seen. No soft tissue swelling is present. Left elbow: The osseous structures are intact and well aligned without acute fracture or dislocation. The joint spaces are preserved. No joint effusion is seen. No soft tissue swelling is present. Procedure Note Saurav Naylor MD - 07/10/2020 EXAMINATION: 1. XR ELBOW RIGHT 2VW 2. XR ELBOW LEFT 2VW HISTORY: M25.50: Arthralgia, unspecified joint R76.8: Positive AFSHIN (antinuclear antibody) R76.8: Other specified abnormal immunological findings in serum COMPARISON: No prior study is available for comparison at the time ofthis dictation. FINDINGS: Right elbow: The osseous structures are intact and well aligned without acutefracture or dislocation. The joint spaces are preserved. No joint effusion isseen. No soft tissue swelling is present. Left elbow: The osseous structures are intact and well aligned without acutefracture or dislocation. The joint spaces are preserved. No joint effusion isseen. No soft tissue swelling is present. IMPRESSION: No acute fracture, dislocation, or significant arthritis identified in both elbows. Dictated by Rand Roberson MD (radiology transporter). Dr. SAURAV Whitlock MD have personally reviewed and interpreted this examination/study. This report was electronically signed by SAURAV NAYLOR MD on07/10/2020 1:00 PM . Yessi Cabrera MD DIAGNOSTIC IMAG ING ORDERABLES * CT ABDOMEN MULTI PHASE W CONT (08/17/2019 9:36 AM CDT) Only the most recent of5 resultswithin the time period is included. Anatomical Region Laterality Modality Abdomen Computed Tomogra phy 08/17/2019 9:40 AM CDT Impressions 08/20/2019 12:40 PM CDT IMPRESSION: 1. Subtle 9 mm washout observation without definite arterial enhancement within hepatic segment 7/8, not significantly changed in size (LR 3). Continued follow-up is advised. 2. Previously visualized segment 7 arterial enhancing observation is not visualized, favoring a benign process. 3. Hepatic cirrhosis with sequela of portal hypertension and patent TIPS. Persistent mild intrahepatic biliary ductal dilation within hepatic segment 4A likely relates to TIPS placement. Dictated by Carlitos Bond MD (radiology transporter). Dr. JULIO CÉSAR Whitlock M.D. have personally reviewed and interpreted this examination/study. This report was electronically signed by JULIO CÉSAR BAIG M.D. ??on 08/20/2019 12:40 PM . Narrative 08/20/2019 12:40 PM CDT EXAMINATION: Computed tomography (CT) of the abdomen with contrast HISTORY: K75.81: Nonalcoholic steatohepatitis (SANCHEZ) R18.8: Other ascites TECHNIQUE: CT of the abdomen was performed following the uneventful administration of 150 mL of Isovue 370 intravenous contrast according to a three-phase liver protocol. COMPARISON: 10/15/2018, 06/23/2019 FINDINGS: The aorta is normal in course and caliber. The visible lung bases are clear. The heart size is normal without pericardial effusion. The liver is shrunken and has a nodular surface, consistent with hepatic cirrhosis. A patent TIPS is present. A previously identified subcentimeter hepatic segment 7 observation near the dome is not visualized. Another previously identified subcentimeter segment 7/8 arterially enhancing observation is reidentified. This measures approximately 9 mm (series 15 image 38). No definite arterial phase enhancement is identified, though subtle delayed washout is present. No new arterially-enhancing hepatic lesion with washout suspicious for hepatocellular carcinoma is identified. The portal vein remains dilated at 2.2 cm. The hepatic veins are patent without evidence of thrombi. The left portal vein remains nonopacified, consistent with thrombosis. ??Gastroesophageal, perisplenic, and periumbilical varices are redemonstrated. Postprocedural changes from a splenic artery saccular aneurysm embolization near the splenic hilum are again seen. There is no significant change of the middle splenic pole nonenhancing infarct with associated capsular retraction. The spleen remains enlarged measuring 14.6 cm in diameter. No significant ascites is seen. The right hepatic artery is conventional. The left hepatic artery arises from the left gastric artery. The remainder of the arterial anatomy is normal. The gallbladder is surgically absent. Mild intrahepatic biliary ductal dilation involving hepatic segment 4A is similar to the prior examination and likely relates to TIPS placement. The intrahepatic and extrahepatic bile ducts are otherwise nondilated. The pancreas and adrenal glands are normal. Multiple subcentimeter hypoattenuating lesions in both kidneys are too small to characterize but likely represent cysts. Otherwise the kidneys enhance symmetrically. There is no evidence of hydronephrosis. A subcentimeter nonobstructing calculus is present in the right renal upper pole. The distal esophagus and stomach appear normal. The visible portions of the small bowel and colon are normal in caliber without evidence of wall thickening or obstruction. No free intraperitoneal air is seen. No lymphadenopathy is identified. Bone windows demonstrate no suspicious lytic or blastic lesions. The visible osseous structures are intact. Degenerative changes are seen in the spine. Procedure Note Julio César Baig MD - 08/20/2019 EXAMINATION: Computed tomography (CT) of the abdomen with contrast HISTORY: K75.81: Nonalcoholic steatohepatitis (SANCHEZ) R18.8: Other ascites TECHNIQUE: CT of the abdomen was performed following the uneventful administration of 150 mL of Isovue 370 intravenous contrast according toa three-phase liver protocol. COMPARISON: 10/15/2018, 06/23/2019 FINDINGS: The aorta is normal in course and caliber. The visible lung bases are clear. The heart size is normal without pericardial effusion. The liver is shrunken and has a nodular surface, consistent with hepatic cirrhosis. A patent TIPS is present. A previously identifiedsubcentimeter hepatic segment 7 observation near the dome is not visualized. Another previously identified subcentimeter segment 7/8 arterially enhancing observation is reidentified. This measures approximately 9 mm (series 15 image 38). No definite arterial phase enhancement is identified, though subtle delayed washout is present. No new arterially-enhancing hepatic lesion with washout suspicious for hepatocellular carcinoma isidentified. The portal vein remains dilated at 2.2 cm. The hepatic veins are patent without evidence of thrombi. The left portal vein remains nonopacified, consistent with thrombosis. Gastroesophageal, perisplenic, and periumbilical varices are redemonstrated. Postprocedural changes from a splenic artery saccular aneurysm embolization near the splenic hilum are again seen. There is no significant change of the middle splenic pole nonenhancing infarct with associated capsular retraction. The spleen remains enlarged measuring 14.6 cm in diameter. No significant ascitesis seen. The right hepatic artery is conventional. The left hepatic artery arises from the left gastric artery. The remainder of the arterial anatomy is normal. The gallbladder is surgically absent. Mild intrahepatic biliary ductal dilation involving hepatic segment 4A is similar to the priorexamination and likely relates to TIPS placement. The intrahepatic and extrahepatic bile ducts are otherwise nondilated. The pancreas and adrenal glands are normal. Multiple subcentimeter hypoattenuating lesions in both kidneysare too small to characterize but likely represent cysts. Otherwise the kidneys enhance symmetrically. There is no evidence of hydronephrosis. A subcentimeter nonobstructing calculus is present in the right renalupper pole. The distal esophagus and stomach appear normal. The visible portions of the small bowel and colon are normal in caliber without evidence of wall thickening or obstruction. No free intraperitoneal air is seen. No lymphadenopathy is identified. Bone windows demonstrate no suspicious lytic or blastic lesions. The visible osseous structures are intact. Degenerative changes are seen in the spine. IMPRESSION: 1. Subtle 9 mm washout observation without definite arterial enhancement within hepatic segment 7/8, not significantly changed in size (LR 3). Continued follow-up is advised. 2. Previously visualized segment 7 arterial enhancing observation is not visualized, favoring a benign process. 3. Hepatic cirrhosis with sequela of portal hypertension and patentTIPS. Persistent mild intrahepatic biliary ductal dilation within hepatic segment 4A likely relates to TIPS placement. Dictated by Carlitos Bond MD (radiology transporter). Dr. JULIO CÉSAR Whitlock M.D. have personally reviewed and interpretedthis examination/study. This report was electronically signed by JULIO CÉSAR BAIG M.D. on 08/20/2019 12:40 PM . Gonzales Ramon MD CT ORDERABLES * CREATININE - POCT INTERFACED (08/17/2019 9:20 AM CDT) Creatinine POCT 0.8 0.3 - 1.3 mg/dL 08/17/2019 9:49 AM CDT [facility] eGFR >60 >60 mL/min/1.7 3 m2 08/17/2019 9:49 AM CDT [facility] Blood BLOOD SPECIMEN / Unknown 08/17/2019 9:20 AM CDT 08/17/2019 9:49 AM CDT Gonzales Ramon MD LAB - POINT OF CARE ORDERABLES [address] [id number] [phone] * CT ABDOMEN AND PELVIS WITH IV CONTRAST - Acute Abdomen (06/23/2019 5:30 PM CDT) Anatomical Region Laterality Modality Abdomen, Pelvis Computed Tomogra phy 06/23/2019 6:03 PM CDT Impressions 06/24/2019 8:16 AM CDT IMPRESSION: 1. Hepatic cirrhosis with sequela of portal hypertension and TIPS shunt. 2. 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 3. Otherwise, no acute processes in the abdomen and pelvis. Dictated by Sang Lau MD (radiology transporter). Dr. JULIO CÉSAR Whitlock M.D. have personally reviewed and interpreted this examination/study. This report was electronically signed by JULIO CÉSAR BAIG M.D. ??on 06/24/2019 8:16 AM . Narrative 06/24/2019 8:16 AM CDT EXAMINATION: Computed tomography (CT) of the abdomen and pelvis with contrast HISTORY: R10.84: Abdominal pain, generalized. 53 year oldfemalewith a past medical history of morbid obesity,splenic artery aneurysm status-post coiling, NASHcirrhosis, lupus, and rheumatoid arthritispresenting to the ED c/o abdominal pain. Past procedural history includes cholecystectomy and TIPS. Reports 3 weeks of RUQ and abd pain that has been worsening for the past 3 days. States that pain radiates to her back and is worse with food, TECHNIQUE: CT of the abdomen and pelvis was performed following the uneventful administration of 100 mL of Isovue 370 intravenous contrast according to standard protocol. COMPARISON: Comparison is made with CT of the abdomen, liver protocol, from 10/15/2018, and liver protocol CT of the abdomen and pelvis from 05/07/2018. FINDINGS: The visible lung bases are clear. The heart size is normal without pericardial effusion. The liver has a nodular surface, consistent with hepatic cirrhosis. A small calcification is noted in the right hepatic lobe. Otherwise the liver enhances homogenously. The arterially-enhancing observations described on prior studies are not visible on this portal venous phase exam. A TIPS shunt is present. The portal vein remains dilated at 2.2 cm in diameter. Gastroesophageal and perisplenic varices are again seen. The gallbladder is surgically absent. There is mild dilation of the proximal intrahepatic biliary ducts, likely related to postcholecystectomy state. The common bile duct is nondilated. Streak artifact from splenic artery aneurysm coiling is again seen. There is continued evolution with parenchymal atrophy and capsular retraction of the wedge-shaped splenic infarct at the middle pole of the spleen. No new splenic lesions are seen. The pancreas and adrenal glands are normal. The kidneys enhance symmetrically. There is no evidence of hydronephrosis. There is a nonobstructive right renal calculus measuring 4 mm. Small calcifications in the pelvis along the course of the ureters are unchanged from prior comparison exam, and are consistent with pelvic phleboliths. The distal esophagus and stomach appear normal. The small bowel and large bowel are normal in caliber without evidence of wall thickening or obstruction. The appendix appears normal without appendicolith or surrounding inflammatory changes. No free air or free fluid is identified within the abdomen. There is no abdominal lymphadenopathy. The aorta is normal in course and caliber. The urinary bladder is distended with fluid and appears normal. The uterus is absent. Soft tissue along the left and right external iliac vessels may represent the patient's ovaries. A small amount of free pelvic fluid is seen. There is no pelvic lymphadenopathy. Bone windows demonstrate no suspicious lytic or blastic lesions. The visible osseous structures are intact. Mild multilevel degenerative changes are noted in the spine. Procedure Note Julio César Baig MD - 06/24/2019 EXAMINATION: Computed tomography (CT) of the abdomen and pelvis with contrast HISTORY: R10.84: Abdominal pain, generalized. 53 year oldfemalewith apast medical history of morbid obesity,splenic artery aneurysm status-post coiling, NASHcirrhosis, lupus, and rheumatoid arthritispresenting to the ED c/o abdominal pain. Past procedural history includes cholecystectomy and TIPS. Reports 3 weeks of RUQ and abd pain that has been worseningfor the past 3 days. States that pain radiates to her back and is worse with food, TECHNIQUE: CT of the abdomen and pelvis was performed following the uneventful administration of 100 mL of Isovue 370 intravenous contrast according to standard protocol. COMPARISON: Comparison is made with CT of the abdomen, liver protocol, from 10/15/2018, and liver protocol CT of the abdomen and pelvis from 05/07/2018. FINDINGS: The visible lung bases are clear. The heart size is normal without pericardial effusion. The liver has a nodular surface, consistent with hepatic cirrhosis. A small calcification is noted in the right hepatic lobe. Otherwise the liver enhances homogenously. The arterially-enhancing observations described on prior studies are not visible on this portal venous phase exam. A TIPS shunt is present. The portal vein remains dilated at 2.2 cm in diameter. Gastroesophageal and perisplenic varices are again seen.The gallbladder is surgically absent. There is mild dilation of the proximal intrahepatic biliary ducts, likely related to postcholecystectomy state. The common bile duct is nondilated. Streak artifact from splenic artery aneurysm coiling is again seen. There is continued evolution with parenchymal atrophy and capsular retraction of the wedge-shaped splenic infarct at the middle pole of the spleen. No new splenic lesions areseen. The pancreas and adrenal glands are normal. The kidneys enhance symmetrically. There is no evidence of hydronephrosis. There is a nonobstructive right renal calculus measuring 4 mm. Small calcifications in the pelvis along the course of the ureters are unchanged from prior comparison exam, and are consistent with pelvic phleboliths. The distal esophagus and stomach appear normal. The small bowel andlarge bowel are normal in caliber without evidence of wall thickening or obstruction. The appendix appears normal without appendicolith or surrounding inflammatory changes. No free air or free fluid isidentified within the abdomen. There is no abdominal lymphadenopathy. The aorta is normal in course and caliber. The urinary bladder is distended with fluid and appears normal. Theuterus is absent. Soft tissue along the left and right external iliac vesselsmay represent the patient's ovaries. A small amount of free pelvic fluid is seen. There is no pelvic lymphadenopathy. Bone windows demonstrate no suspicious lytic or blastic lesions. The visible osseous structures are intact. Mild multilevel degenerative changes are noted in the spine. IMPRESSION: 1. Hepatic cirrhosis with sequela of portal hypertension and TIPS shunt. 2. 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 3. Otherwise, no acute processes in the abdomen and pelvis. Dictated by Sang Lau MD (radiology transporter). I, Dr. JULIO CÉSAR BAIG M.D. have personally reviewed and interpretedthis examination/study. This report was electronically signed by JULIO CÉSAR BAIG M.D. on 06/24/2019 8:16 AM . Darrel Petersen DO CT ORDERABLES * TROPONIN I (06/23/2019 4:20 PM CDT) Only the most recent of2 resultswithin the time period is included. Troponin I <0.010 <0.032 ng/mL 06/23/2019 4:58 PM CDT [facility] Blood BLOOD SPECIMEN / Unknown Venipuncture / Unknown 06/23/2019 4:20 PM CDT 06/23/2019 4:26 PM CDT Darrel Petersen DO LAB - [place]MI[place] [address], [facility] [phone] * (ABNORMAL) RBC MORPHOLOGY (06/23/2019 4:20 PM CDT) Only the most recent of36 resultswithin the time period is included. Anisocytosis 1+(A) None 06/23/2019 5:53 PM CDT [facility] Microcytes 2+(A) None 06/23/2019 5:53 PM CDT [facility] Hypochromia 1+(A) None 06/23/2019 5:53 PM CDT [facility] Ovalocytes 1+(A) None 06/23/2019 5:53 PM CDT [facility] Blood BLOOD SPECIMEN / Unknown Venipuncture / Unknown 06/23/2019 4:20 PM CDT 06/23/2019 4:26 PM CDT Darrel Petersen DO LAB - HEMATOLOGY ORD ERABLES [address] [phone] * (ABNORMAL) CBC W DIFF (EXTERNAL RESULT ENTRY) (10/13/2018) Only the most recent of2 resultswithin the time period is included. WBC (EXTERNAL RESULT) 3.4(A) 3.8 - 10.8 10^3/ul Hemoglobin (EXTERNAL RESULT) 11.7 11.7 - 15.5 g/dl Hematocrit (EXTERNAL RESULT) 34.5(A) 35.0 - 45.0 % Platelets (EXTERNAL RESULT) 113(A) 140 - 400 10^3/ul Neutrophil Absolute (EXTERNAL RESULT) 2,244 1,500 - 7,800 10^3/ul Blood BLOOD SPECIMEN / Unknown 10/13/2018 Historical Provider LAB - HEMATOLOGY ORDERABLES * (ABNORMAL) PT INR (EXTERNAL RESULT ENTRY) (10/13/2018) Only the most recent of2 resultswithin the time period is included. PT (EXTERNAL) 11.9(A) 9.0 - 11.5 sec INR (EXTERNAL RESULT) 1.2(A) 0.9 - 1.1 Blood BLOOD SPECIMEN / Unknown 10/13/2018 Historical Provider LAB - CHEMISTRY O RDCIERRA * (ABNORMAL) COMP MET PANEL (EXTERNAL RESULT ENTRY) (10/13/2018) Only the most recent of2 resultswithin the time period is included. Glucose (EXTERNAL) 179(A) 65 - 99 mg/dL Sodium (EXTERNAL RESULT) 140 135 - 146 mmol/L Potassium (EXTERNAL RESULT) 3.9 3.5 - 5.3 mmol/L Chloride (EXTERNAL RESULT) 109 98 - 110 mmol/L CO2 (EXTERNAL) 26 20 - 32 mmol/L Calcium (EXTERNAL RESULT) 8.3(A) 8.6 - 10.4 mg/dL Anion Gap (EXTERNAL RESULT) BUN (EXTERNAL RESULT) 11 7 - 25 mg/dL Creatinine (EXTERNAL RESULT) 0.62 0.50 - 1.05 mg/dl Alkaline Phosphatase (EXTERNAL RESULT) 174(A) 33 - 130 U/L ALT (EXTERNAL RESULT) 45(A) 6 - 29 U/L AST (EXTERNAL RESULT) 84(A) 10 - 35 U/L Protein Total (EXTERNAL RESULT) 5.5(A) 6.1 - 8.1 gm/dL Albumin (EXTERNAL RESULT) 2.8(A) 3.6 - 5.1 gm/dL Bilirubin Total (EXTERNAL RESULT) 1.0 0.2 - 1.2 mg/dL eGFR MDRD (EXTERNAL RESULT) 102 >=60 mL/min/1.7 3m2 eGFR (EXTERNAL) 118 >=60 mL/min/1.7 3m2 Blood BLOOD SPECIMEN / Unknown 10/13/2018 Historical Provider LAB - CHEMISTRY O LISHA * ENDOSCOPY, COLON, SCREENING (07/03/2018 8:50 AM CDT) Report Endoscopy POC Endoscopy Department Report _ Patient Name: Sharon Carbajal ?Procedure Date: 07/03/2018 8:50 AM ? Date of : 1965 Classification: Outpatient ?Gender: Female Ethnicity: Not or ? Race: White _ Providers: ?Deepa Fried (Fellow) Referring MD: ? Goznales Ramon MD (Referring MD) Procedure: ?Colonoscopy Indications: ?Screening for colorectal malignant neoplasm Medications: ?Monitored Anesthesia Care Comorbidities ? SANCHEZ Cirrhosis Patient Profile: ?This is a 52 year old female. Description of Procedure: After I obtained informed consent, the scope was ?passed under direct vision. Throughout the ?procedure, the patient's blood pressure, pulse, and ?oxygen saturations were monitored continuously. The ?PCF-H190DL was introduced through the anus and ?advanced to the cecum, identified by appendiceal ?orifice and ileocecal valve. The colonoscopy was ?performed without difficulty. The patient tolerated ?the procedure well. The quality of the bowel ?preparation was excellent. The ileocecal valve, ?appendiceal orifice, and rectum were photographed. ?The patient tolerated the procedure well. The ?quality of the bowel preparation was evaluated ?using the BBPS (Nursery Bowel Preparation Scale) ?with scores of: Right Colon = 2 (minor amount of ?residual staining, small fragments of stool and/or ?opaque liquid, but mucosa seen well), Transverse ?Colon = 2 (minor amount of residual staining, small ?fragments of stool and/or opaque liquid, but mucosa ?seen well) and Left Colon = 2 (minor amount of ?residual staining, small fragments of stool and/or ?opaque liquid, but mucosa seen well). The total ?BBPS score equals 6. The quality of the bowel ?preparation was good. ? Findings: ? Hemorrhoids were found on perianal exam. ? A moderate amount of stool was found in the entire colon, making ? visualization difficult however with extensive suctioning visualization ? was improved. ? The retroflexed view of the distal rectum and anal verge was normal and ? showed no anal or rectal abnormalities. ? Estimated Blood Loss: ? Estimated blood loss: none. Complications: ?No immediate complications. Impression: ? - Hemorrhoids found on perianal exam. ?- Stool in the entire examined colon. ?- No specimens collected. Recommendation: ? - Patient has a contact number available for ?emergencies. The signs and symptoms of potential ?delayed complications were discussed with the ?patient. Return to normal activities tomorrow. ?Written discharge instructions were provided to the ?patient. ?- Resume previous diet. ?- Continue present medications. ?- Repeat colonoscopy in 5 years for screening ?purposes. ? Diagnosis Code(s): ?--- Professional --- ?Z12.11, Encounter for screening for malignant ?neoplasm of colon ?K64.9, Unspecified hemorrhoids Stephane Wallis, 07/03/2018 9:38:00 AM Note Initiated On: 07/03/2018 8:50 AM Number of Addenda: 0 ? [facility] ? [address] [place] [address] [facility] 07/03/2018 8:50 AM CDT Stephane Wallis MD GI PROCEDURE O RDERABLES [facility] * COMPLETE PFT (05/12/2018 10:03 AM CDT) Impressions Audrey Nowak MD - 05/12/2018 10:03 AM CDT DEPARTMENT OF PULMONARY, CRITICAL CARE, AND SLEEP MEDICINE PULMONARY FUNCTION TEST Please see technologist's comments mentioned in the report. INTERPRETATION: SPIROMETRY: ?FVC: normal ?FEV1: normal ?FEV1/FVC ratio is normal. BRONCHODILATOR RESPONSE: There is no response to bronchodilator therapy FLOW-VOLUME LOOPS: Normal flow-volume loops LUNG VOLUMES: Lung volumes by body plethysmography are within normal limits DLCO: Unadjusted for Hb and COHb is normal AIRWAY RESISTANCE: The airway resistance is normal and the specific conductance is normal ARTERIAL BLOOD GAS ANALYSIS: not performed IMPRESSION: 1. Normal spirometry and lung volumes 2. No positive bronchodilator response, however this does not preclude the use of bronchodilators 4. There is no previous study available for comparison Jenny Lomeli MD (Fellow) Division of Pulmonary, Critical Care, & Sleep Medicine [facility] [employer] I have personally reviewed pulmonary function test data and finding. I concur with fellow's note. Audrey Nowak MD Narrative Audrey Nowak MD - 05/12/2018 10:03 AM CDT Carmel Lomeli MD ? 05/08/2018 ??4:48 PM Julio Molina MD RESPIRATORY THERAPY ORDERABLES * EGD (05/08/2018 1:59 PM RADIOSONDE OPERATOR) Report Endoscopy POC Endoscopy Department Report _ Patient Name: Sharon Carbajal ?Procedure Date: 05/08/2018 1:59 PM ? Date of : 1965 Classification: Outpatient ?Gender: Female _ Providers: ?Stephane Rowell MD: ? Procedure: ?Upper GI endoscopy Indications: ?Cirrhosis with suspected esophageal varices Medications: ?Monitored Anesthesia Care Description of Procedure: After obtaining informed consent, the endoscope was ?passed under direct vision. Throughout the ?procedure, the patient's blood pressure, pulse, and ?oxygen saturations were monitored continuously. The ?Endoscope was introduced through the mouth, and ?advanced to the third part of duodenum. The upper ?GI endoscopy was accomplished without difficulty. ?The patient tolerated the procedure well. ? Findings: ? The examined esophagus was normal. ? A large amount of food (residue) was found in the entire examined ? stomach. ? The second portion of the duodenum was normal. ? Estimated Blood Loss: ? Estimated blood loss: none. Complications: ?No immediate complications. Impression: ? - Normal esophagus. ?- A large amount of food (residue) in the stomach. ?- Normal second portion of the duodenum. ?- No specimens collected. Recommendation: ? - The patient will be observed post-procedure, ?until all discharge criteria are met. ?- Discharge patient to home. ? Attending Participation: ??I personally performed the entire procedure. ? Procedure Code(s): ? --- Professional --- ? 25480, Esophagogastrodu odenoscopy, flexible, transoral; diagnostic, ? including collection of specimen(s) by brushing or washing, when ? performed (separate procedure) Diagnosis Code(s): ?--- Professional --- ?K74.60, Unspecified cirrhosis of liver CPT copyright 2016 [employer]. All rights reserved. The codes documented in this report are preliminary and upon knockdown worker review may be revised to meet current compliance requirements. Stephane Wallis, 05/08/2018 2:30:05 PM Note Initiated On: 05/08/2018 1:59 PM Number of Addenda: 0 ? [facility] ? [address] [employer] 05/08/2018 1:59 PM RADIOSONDE OPERATOR Julio Molina MD GI PROCEDURE ORDERAB LES Performing Organization Address City/[facility]/ZIP Co de Phone Number [facility] * ECHO COMPLETE (05/07/2018 11:44 AM RADIOSONDE OPERATOR) Only the most recent of2 resultswithin the time period is included. Anatomical Region Laterality Modality Color Flow Doppl er 05/07/2018 10:3 4 AM RADIOSONDE OPERATOR Narrative 05/07/2018 12:57 PM RADIOSONDE OPERATOR Procedure Note Mikie Benitez MD - 05/08/2018 Julio Molina MD ECHOCARDIOGRAPHY RAD IANT * HIV-1 HIV-2 ANTIGEN/ANTIBODY (05/07/2018 8:18 AM RADIOSONDE OPERATOR) Only the most recent of2 resultswithin the time period is included. HIV Antigen/Antibod y 1 & 2 Non-reacti ve Non-react bryn 05/07/2018 9:19 AM RADIOSONDE OPERATOR [facility] Comment: Neither HIV-1 p24 Antigen nor HIV-1/HIV-2 Antibodies are detected. ? Blood BLOOD SPECIMEN / Unknown Lab Venipuncture / Unknown 05/07/2018 8:18 AM RADIOSONDE OPERATOR 05/07/2018 8:32 AM RADIOSONDE OPERATOR Julio Molina MD LAB - HEMATOLOGY ORD ERABLES Performing Organization Address City/[facility]/[place] [address], [place] [phone] * CANNABINOID SCREEN BLOOD (05/07/2018 8:18 AM RADIOSONDE OPERATOR) [facility] Marijuana Metabolites Negative 05/10/2018 4:07 PM CDT [facility] ([facility]) Comment:REFERENCE RANGE: thr shold: 5 ng/mL Specimen Type Comment 05/10/2018 4:07 PM CDT [facility] ([facility]) Comment: WHOLE BLOOD This specimen was screened by immunoassay at the thresholds listed above. Presumptive positive results have not been confirmed by an alternate method; results are intended for clinical medical purposes. Please contact the laboratory if confirmatory testing is desired. This test was developed and its performance characteristics determined by [employer]. It has not been cleared or approved by the Food and Drug Administration. Blood BLOOD SPECIMEN / Unknown Lab Venipuncture / Unknown 05/07/2018 8:18 AM RADIOSONDE OPERATOR 05/07/2018 8:42 AM RADIOSONDE OPERATOR Narrative [facility] ([facility]) - 05/10/2018 4:07 PM CDT Performed at: ??01 - [employer] [address] ??[id number] Runner On: Chloe Hickey [facility], Phone: ??[phone] Julio Molina MD LAB - [facility]MI[facility]Y [facility] Organization Address City/State/ZIP Co de Phone Number [facility] ([facility]) [address] [place] [address] * QUANTIFERON-TB GOLD PLUS 4-TUBE (05/07/2018 8:18 AM RADIOSONDE OPERATOR) [facility] QuantiFERON Criteria Comment 05/11/2018 10:08 AM CDT [facility] ([facility]) Comment: The QuantiFERON-TB Gold Plus result is determined by subtracting the Nil value from either TB antigen (Ag) tube. The mitogen tube serves as a control for the test. QuantiFERON TB1 Ag Value 0.03 IU/mL 05/11/2018 10:08 AM CDT [facility] ([facility]) QuantiFERON TB2 Ag Value 0.05 IU/mL 05/11/2018 10:08 AM CDT [facility] ([facility]) QuantiFERON Nil Value 0.01 IU/mL 05/11/2018 10:08 AM CDT [facility] ([facility]) QuantiFERON Mitogen Value >10.00 IU/mL 05/11/2018 10:08 AM CDT [facility] ([facility]) QuantiFERON-TB Gold Plus Negative Negative 05/11/2018 10:08 AM CDT [facility] ([facility]) Comment: The specimen received for QuantiFERON testing was incubated by the ordering institution. ??Specific procedures outlined in our Directory of Services and in the package insert for the QuantiFERON Gold (In Tube) test must be followed to enable for proper stimulation of cells for the production of interferon gamma. Blood BLOOD SPECIMEN / Unknown Lab Venipuncture / Unknown 05/07/2018 8:18 AM RADIOSONDE OPERATOR 05/07/2018 8:41 AM RADIOSONDE OPERATOR Narrative [facility] ([facility]) - 05/11/2018 10:08 AM CDT Performed at: ??01 - [address] ??[id number] Runner On: Perez Chavis PhD, Phone: ??[phone] Julio Molina MD LAB - CHEMISTRY CORNELIA GAVIN Performing Organization Address [facility]/ZIP Co de Phone Number [facility] ([facility]) [address] [place] [address] * PTH INTACT ([facility]) (05/07/2018 8:18 AM RADIOSONDE OPERATOR) Pathologist [facility] PTH Intact 48.2 15.0 - 65.0 pg/mL 05/07/2018 8:56 AM RADIOSONDE OPERATOR [facility] Blood BLOOD SPECIMEN / Unknown Lab Venipuncture / Unknown 05/07/2018 8:18 AM RADIOSONDE OPERATOR 05/07/2018 8:31 AM RADIOSONDE OPERATOR Julio Molina MD LAB - CHEMISTRY CORNELIA GAVIN Performing Organization Address City/[facility]/ZIP Co de Phone Number [address] [phone] * CYTOMEGALOVIRUS ANTIBODY IGG BLOOD (05/07/2018 8:18 AM RADIOSONDE OPERATOR) Cytomegalovirus Antibody IgG <0.60 0.00 - 0.59 U/mL 05/09/2018 8:28 AM RADIOSONDE OPERATOR [facility] ([facility]) Comment: ? Negative ?<0.60 ? Equivocal ?? 0.60 - 0.69 ? Positive ?>0.69 Blood BLOOD SPECIMEN / Unknown Lab Venipuncture / Unknown 05/07/2018 8:18 AM RADIOSONDE OPERATOR 05/07/2018 8:43 AM RADIOSONDE OPERATOR Narrative [facility] ([facility]) - 05/09/2018 8:28 AM RADIOSONDE OPERATOR Performed at: ??01 - [facility] [address] [place], [place] ??[id number] Runner On: Perez Chavis PhD, Phone: ??[phone] Julio Molina MD LAB - CHEMISTRY CORNELIA GAVIN [facility] ([facility]) [address] [place] [address], [facility] * (ABNORMAL) CHARMAINE-WHALEY VIRUS ANTIBODY TO VCA IGG (05/07/2018 8:18 AM RADIOSONDE OPERATOR) Charmaine-Whaley Virus Antibody IgG Viral Capsid Antigen >750.0(H) 0.0 - 21.9 U/mL 05/09/2018 8:25 AM RADIOSONDE OPERATOR [facility] ([facility]) Comment: INTERPRETIVE INFORMATION: Charmaine-Whaley Virus Antibody to ?Viral Capsid Antigen, IgG ??17.9 U/mL or less.......Not Detected ??18.0-21.9 U/mL..........Indeterminate - Repeat testing in ?10-14 days may be helpful. ??22.0 U/mL or greater....Detected Interpretive information regarding serologic features of EBV-associated diseases is available at [email or web address]. Performed by [employer], [address] [place] [address] www.[email or web address], Pillo Blevins MD, Lab. Director Blood BLOOD SPECIMEN / Unknown Lab Venipuncture / Unknown 05/07/2018 8:18 AM RADIOSONDE OPERATOR 05/07/2018 8:43 AM RADIOSONDE OPERATOR Julio Molina MD LAB - CHEMISTRY CORNELIA GAVIN [facility] ([facility]) [address] [place] [id number] [place] [address] * IRON BLOOD (05/07/2018 8:18 AM RADIOSONDE OPERATOR) Only the most recent of2 resultswithin the time period is included. Pathologist [facility] Iron 58 40 - 150 mcg/dL 05/07/2018 8:54 AM RADIOSONDE OPERATOR [facility] Blood BLOOD SPECIMEN / Unknown Lab Venipuncture / Unknown 05/07/2018 8:18 AM RADIOSONDE OPERATOR 05/07/2018 8:32 AM RADIOSONDE OPERATOR Julio Molina MD LAB - CHEMISTRY CORNELIA GAVIN [address] [phone] * HEPATITIS B SURFACE ANTIBODY (05/07/2018 8:18 AM RADIOSONDE OPERATOR) Only the most recent of2 resultswithin the time period is included. Pathologist [facility] Hepatitis B Virus Surface Antibody Non-react bryn Non-react bryn 05/07/2018 9:57 AM [facility] Comment: < 8 mIU/mL Hepatitis B surface Antibody (HBsAb). Nonreactive for HBsAb - individual is considered not immune to Hepatitis B Virus infection. Hepatitis B Surface Antibody Quantitative 1.3 <8.0 mIU/mL 05/07/2018 9:57 AM [facility] Comment: Hepatitis B Surface Antibody Numeric Result Interpretation: ? Nonreactive: ?<8.0 mIU/mL ? Indeterminate: ??8.0 - 12.0 mIU/mL ? Reactive: ?>12.0 mIU/mL ? Blood BLOOD SPECIMEN / Unknown Lab Venipuncture / Unknown 05/07/2018 8:18 AM RADIOSONDE OPERATOR 05/07/2018 8:32 AM RADIOSONDE OPERATOR Julio Molina MD LAB - CHEMISTRY CORNELIA GAVIN Performing Organization Address [facility] de Phone Number [address] [phone] * HEPATITIS B CORE TOTAL ANTIBODY (05/07/2018 8:18 AM RADIOSONDE OPERATOR) Only the most recent of2 resultswithin the time period is included. HBc Antibody Total Non-reacti ve Non-reacti ve 05/07/2018 9:12 AM [facility] Blood BLOOD SPECIMEN / Unknown Lab Venipuncture / Unknown 05/07/2018 8:18 AM RADIOSONDE OPERATOR 05/07/2018 8:32 AM RADIOSONDE OPERATOR Julio Molina MD LAB - CHEMISTRY CORNELIA GAVIN Performing Organization Address [facility] Co de Phone Number [address] [phone] * HEPATITIS B SURFACE ANTIGEN W RFLX CONFIRMATION (05/07/2018 8:18 AM RADIOSONDE OPERATOR) Only the most recent of3 resultswithin the time period is included. Hepatitis B Virus Surface Antigen Non-reacti ve Non-reacti ve 05/07/2018 9:55 AM [facility] Blood BLOOD SPECIMEN / Unknown Lab Venipuncture / Unknown 05/07/2018 8:18 AM RADIOSONDE OPERATOR 05/07/2018 8:42 AM RADIOSONDE OPERATOR Julio Molina MD LAB - CHEMISTRY CORNELIA GAVIN Performing Organization Address [facility]/ZIP Co de Phone Number [address] [phone] * HEPATITIS C ANTIBODY (05/07/2018 8:18 AM RADIOSONDE OPERATOR) Only the most recent of3 resultswithin the time period is included. Pathologist [facility] Hepatitis C Antibody Non-react bryn Non-reac tive 05/07/2018 9:57 AM [facility] Comment: Hepatitis C Antibody screen indicates [...] Lab Venipuncture / Unknown 05/07/2018 8:18 AM RADIOSONDE OPERATOR 05/07/2018 8:32 AM RADIOSONDE OPERATOR Julio Molina MD LAB - CHEMISTRY CORNELIA GAVIN Performing Organization Address [facility]/ZIP Co de Phone Number [address] [phone] * LIPID PROFILE (05/07/2018 8:18 AM [facility]) Pathologist [facility] Cholesterol Total 140 <200 mg/dL 05/07/2018 8:53 AM [facility] HDL 43 >40 mg/dL 05/07/2018 8:53 AM [facility] Comment: ATP III Classification of HDL Cholesterol: ? <40 mg/dL: ??Considered a major risk factor. ? >60 mg/dL: ??Considered a negative risk factor. ? LDL Calculated 89 <100 mg/dL 05/07/2018 8:53 AM [facility] Comment: ATP III Classification of LDL Cholesterol: ?<100 mg/dL: ??Optimal ? 100 - 129 mg/dL: ??Near Optimal/Above Optimal ? 130 - 159 mg/dL: ??Borderline High ? 160 - 189 mg/dL: ??High ?>190 mg/dL: ??Very High ? Triglycerides 42 <150 mg/dL 05/07/2018 8:53 AM RADIOSONDE OPERATOR [facility] Comment: ATP III Classification of Triglycerides: ?<150 mg/dL: ??Normal ? 150 - 199 mg/dL: ??Borderline High ? 200 - 400 mg/dL: ??High ?>500 mg/dL: ??Very High Blood BLOOD SPECIMEN / Unknown Lab Venipuncture / Unknown 05/07/2018 8:18 AM RADIOSONDE OPERATOR 05/07/2018 8:32 AM RADIOSONDE OPERATOR Julio Molina MD LAB - CHEMISTRY CORNELIA GAVIN [facility] Organization Address City/State/[facility] Co de Phone Number [address] [phone] * XR CHEST PA AND LATERAL (05/07/2018 7:22 AM RADIOSONDE OPERATOR) Only the most recent of2 resultswithin the time period is included. Anatomical Region Laterality Modality Chest Radiographic Allie ging 05/07/2018 9:29 AM RADIOSONDE OPERATOR Impressions 05/07/2018 11:48 AM RADIOSONDE OPERATOR IMPRESSION: No acute pulmonary process. Dictated by Pietro Shields MD (resident). This report was approved ??by Pietro Shields ?? on 05/07/2018 10:09 AM . IDr. Janeth M.D. have personally reviewed and interpreted this examination/study. This report was electronically signed by Janeth HOOVER M.D. ??on 05/07/2018 11:48 AM . Narrative 05/07/2018 11:48 AM RADIOSONDE OPERATOR EXAMINATION: Chest radiograph, PA and lateral view HISTORY: Pretransplant eval. COMPARISON: Comparison is made with a study from 01/25/2018 FINDINGS: Vascular coils are again seen in the left upper quadrant. Surgical clips are noted in the right upper quadrant. There is a intrahepatic portosystemic shunt in the right upper quadrant. There is no focal consolidation, pleural effusion, or pneumothorax. The cardiomediastinal silhouette is normal. The visible bony thorax is intact. Procedure Note Teetee Hoover MD - 05/07/2018 EXAMINATION: Chest radiograph, PA and lateral view HISTORY: Pretransplant eval. COMPARISON: Comparison is made with a study from 01/25/2018 FINDINGS: Vascular coils are again seen in the left upper quadrant. Surgical clips are noted in the right upper quadrant. There is a intrahepatic portosystemic shunt in the right upper quadrant. There is no focal consolidation, pleural effusion, or pneumothorax. The cardiomediastinal silhouette is normal. The visible bony thorax isintact. IMPRESSION: No acute pulmonary process. Dictated by Pietro Shields MD (resident). This report was approved by Pietro Shields on 05/07/2018 10:[address] Janeth Whitlock M.D. have personally reviewed and interpretedthis examination/study. This report was electronically signed by Janeth HOOVER M.D. on 05/07/2018 11:48 AM . Julio Molina MD DIAGNOSTIC IMAGING O RDERABLES * SYPHILIS ANTIBODY CASCADING REFLEX (04/30/2018 12:43 PM RADIOSONDE OPERATOR) Treponema pallidum Antibody Non-react bryn Non-react bryn 04/30/2018 4:46 PM RADIOSONDE OPERATOR [facility] Comment: No Laboratory evidence of syphilis infection. ?? Note: ??Circulating antibodies may be low or undetectable in early infection. ??If recent exposure is suspected, re-draw sample in 2-4 weeks and repeat testing. Blood BLOOD SPECIMEN / Unknown Lab Venipuncture / Unknown 04/30/2018 12:43 PM RADIOSONDE OPERATOR 04/30/2018 3:22 PM RADIOSONDE OPERATOR Gonazles Ramon MD LAB - SEROLOGY ORDER FAM [address] [phone] * [id number] BLOOD PHENOTYPING PANEL (04/30/2018 12:43 PM RADIOSONDE OPERATOR) Only the most recent of2 resultswithin the time period is included. Kfbyy-4-Gciupxgpys n 175 90 - 200 mg/dL 05/05/2018 3:15 PM RADIOSONDE OPERATOR [facility] ([facility]) Phenotype (PI) MM 05/05/2018 3:15 PM RADIOSONDE OPERATOR [facility] ([facility]) Comment: ? Phenotype ?? Population ?A-1-AT Concentration ? Incidence % ?Reference Interval ? MM ?86.5% ?96 - 189 ? MS ? 8.0% ?83 - 161 ? MZ ? 3.9% ?60 - 111 ? FM ? 0.4% ?93 - 191 ? SZ ? 0.3% ?42 - ??75 ? SS ? 0.1% ?62 - 119 ? ZZ ? 0.05% ? 16 - ??38 ? FS ? 0.05% ? 70 - 128 ? FZ ?Unknown ?44 - ??88 ? FF ?Unknown ?Unknown Blood BLOOD SPECIMEN / Unknown Lab Venipuncture / Unknown 04/30/2018 12:43 PM RADIOSONDE OPERATOR 04/30/2018 1:07 PM RADIOSONDE OPERATOR Narrative [facility] ([facility]) - 05/05/2018 3:15 PM RADIOSONDE OPERATOR Performed at: ??01 - [facility] [address] [place], [place] ??[id number] Runner On: Perez Chavis PhD, Phone: ??[phone] Performed at: ??02 - [facility] [address] ??[id number] Runner On: Lia Perez MD, Phone: ??[phone] Julio Molina MD LAB - CHEMISTRY CORNELIA GAVIN [facility] ([facility]) [address] [place] [address], [facility] * RUBEOLA ANTIBODY IGG (04/30/2018 12:43 PM RADIOSONDE OPERATOR) Measles (Rubeola) Antibody IgG 189.0 Immune >29.9 AU/mL 05/01/2018 4:16 PM RADIOSONDE OPERATOR [facility] ([facility]) Comment: ? Negative ?<25.0 ? Equivocal 25.0 - 29.9 ? Positive ?>29.9 Presence of antibodies to Rubeola is presumptive evidence of immunity except when acute infection is suspected. Blood BLOOD SPECIMEN / Unknown Lab Venipuncture / Unknown 04/30/2018 12:43 PM RADIOSONDE OPERATOR 04/30/2018 1:08 PM RADIOSONDE OPERATOR Narrative [facility] ([facility]) - 05/01/2018 4:16 PM RADIOSONDE OPERATOR Performed at: ??01 - [facility] [address] ??[id number] Runner On: Perez Chavis PhD, Phone: ??[phone] Julio Molina MD LAB - CHEMISTRY CORNELIA GAVIN [facility] ([facility]) [address] [place] [address], [facility] * MUMPS ANTIBODY IGG (04/30/2018 12:43 PM RADIOSONDE OPERATOR) Mumps Virus Antibody IgG Index >300.0 Immune >10.9 AU/mL 05/01/2018 4:16 PM RADIOSONDE OPERATOR [facility] ([facility]) Comment: ?Negative ? <9.0 ?Equivocal ??9.0 - 10.9 ?Positive ?>10.9 A positive result generally indicates past exposure to Mumps virus or previous vaccination. Blood BLOOD SPECIMEN / Unknown Lab Venipuncture / Unknown 04/30/2018 12:43 PM RADIOSONDE OPERATOR 04/30/2018 1:04 PM RADIOSONDE OPERATOR Narrative [facility] ([facility]) - 05/01/2018 4:16 PM RADIOSONDE OPERATOR Performed at: ??01 - [facility] ??[id number] Runner On: Perez Chavis PhD, Phone: ??[phone] Julio Molina MD LAB - CHEMISTRY CORNELIA GAVIN Performing Organization Address [facility] Co de Phone Number [facility] ([facility]) [address] [place] [address] * VARICELLA ZOSTER ANTIBODY IGG (04/30/2018 12:43 PM RADIOSONDE OPERATOR) Varicella zoster Virus Antibody IgG 1779 Immune >165 index 05/01/2018 4:16 PM RADIOSONDE OPERATOR [facility] ([facility]) Comment: ? Negative ?<135 ? Equivocal ?135 - 165 ? Positive ?>165 A positive result generally indicates exposure to the pathogen or administration of specific immunoglobulins, but it is not indication of active infection or stage of disease. Blood BLOOD SPECIMEN / Unknown Lab Venipuncture / Unknown 04/30/2018 12:43 PM RADIOSONDE OPERATOR 04/30/2018 1:07 PM RADIOSONDE OPERATOR Narrative [facility] ([facility]) - 05/01/2018 4:16 PM RADIOSONDE OPERATOR Performed at: ??01 - [facility] [id number] [place], [place] ??[id number] Runner On: Perez Chavis PhD, Phone: ??[phone] Julio Molina MD LAB - CHEMISTRY CORNELIA GAVIN Performing Organization Address [facility]/ZIP Co de Phone Number [facility]) [address] [place] [address] * RUBELLA ANTIBODY IGG (04/30/2018 12:43 PM RADIOSONDE OPERATOR) Rubella Antibody 20.20 Immune >0.99 index 05/01/2018 8:41 AM RADIOSONDE OPERATOR [facility] ([facility]) Comment: ?Non-immune ? <0.90 ?Equivocal ??0.90 - 0.99 ?Immune ? >0.99 Blood BLOOD SPECIMEN / Unknown Lab Venipuncture / Unknown 04/30/2018 12:43 PM RADIOSONDE OPERATOR 04/30/2018 1:06 PM RADIOSONDE OPERATOR Joe [facility] ([facility]) - 05/01/2018 8:41 AM RADIOSONDE OPERATOR Performed at: ??01 - [facility] [address] [facility], [place], [place] ??[id number] Runner On: Perez Chavis PhD, Phone: ??[phone] Julio Molina MD LAB - SEROLOGY ORDER FAM [facility] ([facility]) [address] [place] [address], [facility] * NICOTINE + METABOLITES BLOOD (04/30/2018 12:43 PM RADIOSONDE OPERATOR) Nicotine None Detected ng/mL 05/04/2018 8:07 PM RADIOSONDE OPERATOR [facility] ([facility]) Comment: This test was developed and its performance characteristics determined by [facility]. It has not been cleared or approved by the Food and Drug Administration. Nicotine levels greater than 2.0 are consistent with the use of tobacco or tobacco cessation products. Cotinine None Detected ng/mL 05/04/2018 8:07 PM RADIOSONDE OPERATOR [facility] ([facility]) Comment: This test was developed and its performance characteristics determined by [facility]. It has not been cleared or approved by the Food and Drug Administration. Cotinine levels greater than 20.0 are consistent with the use of tobacco or tobacco cessation products. Blood BLOOD SPECIMEN / Unknown Lab Venipuncture / Unknown 04/30/2018 12:43 PM RADIOSONDE OPERATOR 04/30/2018 1:06 PM RADIOSONDE OPERATOR Narrative [facility] ([facility]) - 05/04/2018 8:07 PM RADIOSONDE OPERATOR Performed at: ??01 - [facility] [address] ??[id number] Runner On: Lia Perez MD, Phone: ??[phone] Julio Molina MD LAB - CHEMISTRY CORNELIA GAVIN [facility] ([facility]) [address] [place] [address], [facility] * (ABNORMAL) DRUG SCREEN TOX URINE PANEL (04/30/2018 12:43 PM RADIOSONDE OPERATOR) Pathologist [facility] Amphetamines Screen Urine Negative Negative : < 1000 ng/mL 04/30/2018 1:30 PM [facility] Barbiturates Screen Urine Negative Negative : < 200 ng/mL 04/30/2018 1:30 PM [facility] Benzodiazepine Screen Urine Positive(A) Negative : < 200 ng/mL 04/30/2018 1:30 PM [facility] Comment: Positive urine benzodiazepine screening results should be confirmed by another generally accepted non-immunological method such as gas chromatography or mass spectrometry. ? Opiates Urine Negative Negative : < 300 ng/mL 04/30/2018 1:30 PM [facility] Cocaine Metabolites Urine Negative Negative : < 300 ng/mL 04/30/2018 1:30 PM [facility] Phencyclidine Screen Urine Negative Negative : < 25 ng/ml 04/30/2018 1:30 PM [facility] Cannabinoids Screen Urine Negative Negative : <50 ng/mL 04/30/2018 1:30 PM [facility] Methadone Screen Urine Positive(A) Negative : < 300 ng/mL 04/30/2018 1:30 PM [facility] Comment: Positive urine methadone screening results should be confirmed by another generally accepted non-immunological method such as gas chromatography or mass spectrometry. ? Urine URINE / Unknown Collection / Unknown 04/30/2018 12:43 PM RADIOSONDE OPERATOR 04/30/2018 1:07 PM RADIOSONDE OPERATOR Narrative [facility] - 04/30/2018 1:30 PM RADIOSONDE OPERATOR The Urine Toxicology Screening Panel does not screen for Propoxyphene, Meprobamate, Carisoprodol, Trazodone, ztuw-hzg-jqjwtnu medications and/or volatiles (Acetone, Isopropanol, Methanol or Ethylene Glycol). Ethanol, Salicylate, Acetaminophen, Tricyclic Antidepressants and several therapeutic drugs may be individually assayed in serum or plasma specimen. Toxicology testing by the [facility] is an aid to medical diagnosis and treatment of patients. No documented chain of custody was maintained. Results are intended to be used for clinical purposes only. ? Julio Molina MD LAB - URINE CHEMISTR Y ORDERABLES Performing Organization Address [facility] de Phone Number [address] [phone] * ALCOHOL ETHYL BLOOD (04/30/2018 12:43 PM RADIOSONDE OPERATOR) Interpretation Ethanol None Detected None Detected mg/dL 04/30/2018 1:28 PM RADIOSONDE OPERATOR [facility] Comment: Ethanol levels less than 10 mg/dL are resulted as None detected . Blood BLOOD SPECIMEN / Unknown Lab Venipuncture / Unknown 04/30/2018 12:43 PM RADIOSONDE OPERATOR 04/30/2018 1:04 PM RADIOSONDE OPERATOR Julio Molina MD LAB - CHEMISTRY CORNELIA GAVIN Performing Organization Address [facility] Co de Phone Number [facility] [address] [phone] * CCL CARDIAC CATH LEFT (04/29/2018 10:49 AM RADIOSONDE OPERATOR) Anatomical Region Laterality Modality Chest X-Ray Angiograph y Narrative 05/01/2018 9:56 AM RADIOSONDE OPERATOR [facility] Cardiac Catheterization Procedure Note Patient: Sharon Carbajal Age: 52 y.o. Date of : 1965 Procedure Date: 04/29/18 FELLOW / ARCHITECTURAL PROJECT MANAGER: Dr. Violet Colón, Dr. Randolph Dunham ATTENDING PHYSICIAN: Dr. Tahmina Jin DIAGNOSTIC APPROPRIATENESS CRITERIA: 64 HISTORY: Patient is a 52 y.o.female presents for pre operative evaluation for SANCHEZ cirrhosis ACCESS SITE(S): ?? right radial artery PROCEDURAL OVERVIEW: After obtaining informed consent and positioning the patient on the catheterization table, a timeout was performed to confirm the patient? s name, date of , and procedure. ??Sedation was initiated and the patient was prepped and draped using standard sterile technique. ?? Lidocaine was used for local anesthesia over the access site, after which the vessel was accessed and a sheath was placed using the modified Seldinger technique. ??Access was uncomplicated. Coronary angiography was performed using Tigr4 catheter(s) over an InQwire. ??At the conclusion of the procedure, hemostasis was achieved using a radial compression device after removal of all catheters, wires, and sheaths. ?? SEDATION: Moderate sedation on this adult patient was ordered by Dr. Jin, administered intravenously in their presence, and monitored by the procedure nurse as an independent trained observer who was present throughout the procedure. The following parameters were monitored: oxygen saturation, heart rate, blood pressure, and response to care. Intra-service sedation start time was 10:17 and end time was 10:40 during which the attending was present. Total physician intra-service sedation time was 23 minutes. For details on pre-moderate sedation and post-moderate sedation patient evaluation, please review the evaluation forms in [facility]. For details on monitored clinical parameters during the intra-service sedation time, please review the procedure nurse documentation in [facility]. Total sedation administered as follows: ??1mg IV midazolam, and 50 mg IV benadryl. 2 ml of 1% lidocaine was administered subcutaneously at the access site. TOTAL CONTRAST USED (Isovue 370): 40 ??ml TOTAL BLOOD LOSS: 30 ml IV FLUIDS: 50 ml COMPLICATIONS: none ANGIOGRAPHY: ?? i. ?Left main: Angiographically normal artery. ii. ?? LAD: Long artery that tapers to termination by wrapping around the apex. ??There is are 2 diminutive ??diagonal branches. ??There is no angiographically significant stenosis. iii. ?? LCx: Dominant artery that gives off a large, branching obtuse marginal (OM) 1 and 2 as well as well as a PL branch. ??There is no angiographically significant stenosis. iv. ?? RCA: Small non dominant artery without angiographically significant stenosis. DOMINANCE: Left DIAGNOSTIC INTERPRETATIONS: normal coronary arteries RECOMMENDATIONS AFTER DIAGNOSTIC CATHETERIZATION: ?? Aggressive modification of atherosclerotic risk factors. Violet Colón MD 04/29/2018 I was present for the critical portion of the procedure, and either performed or directly supervised all critical parts of the procedure. Tahmina Jin MD Julio Molina MD CARDIAC POST EXCHANGE MANAGER RAD IANT * APHERESIS/TRANSFUSION ORDER (03/30/2018 3:31 PM RADIOSONDE OPERATOR) Narrative 03/30/2018 3:31 PM RADIOSONDE OPERATOR Ordered by an unspecified provider. 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 These findings were discussed with the transplant team. I, Dr. Vinay Henderson was present and performed the entire procedure. This report was electronically signed by EFRAÍN HENDERSON M.D. ??on 03/24/2018 12:29 PM . Narrative 03/24/2018 12:29 PM RADIOSONDE OPERATOR History: This is a 52-year-old the female with Sanchez cirrhosis and refractory ascites status post TIPS on 12/18. She was admitted with the concern for splenic artery aneurysm, which is continue to expand over time and has reached more than 2.8 cm in cross-section. The patient was referred for embolization of the splenic artery aneurysm. Grievance And Appeals Specialist: Dr. Vinay Henderson, attending physician. PROCEDURE: 1. Ultrasound-guided access of right common femoral artery. 2. Selective catheterization of celiac artery and angiogram. 3. Selective catheterization of splenic artery and angiogram. 4. Embolization of splenic artery aneurysm with framing coil was and MVP plug. 5. Post embolization angiogram of splenic artery. Anesthesia: 1. Local anesthesia-10 mL of 1 percent lidocaine. 2. Intravenous conscious sedation with Versed 1mg and Dilaudid 50 mg Start: 1715 ?Sedation Initiation time: 1715 End time: 1838 Fluoroscopy time: 14 minutes Contrast: 95 mL of Iopamidol 300 Procedure in detail: The procedure, risks, benefits and alternate is were explained to the patient and informed consent was obtained. The patient was placed supine on the angiographic table. The right groin was prepped and draped in the usual sterile manner. The patient received intravenous conscious sedation with Versed and Dilaudid. Patient's vital signs were monitored by a qualified radiology nurse throughout the procedure. Limited ultrasound of right groin demonstrated patent right common femoral artery. A ty scale image was documented. After anesthetizing with 1 percent lidocaine, the right common femoral artery was accessed using a micropuncture needle. The needle entry was documented. After series of exchanges a 5 Turkmen vascular sheath was placed. Using a Sos Omni catheter, the celiac artery was catheterized. A celiac angiogram was obtained, which demonstrated tortuous splenic artery with known splenic artery aneurysm measuring 2.8 cm in cross-section, at the distal trifurcation close to the spleen. A 2.8 Turkmen Lantern microcatheter was advanced coaxially and splenic artery angiogram was obtained. The angiogram confirmed the aneurysm. Attempt to advance the framing coil through the Sos Omni catheter was unsuccessful. The Sos Omni catheter was then exchanged for a 4 Turkmen Cobra catheter. The Cobra catheter was advanced into the splenic artery, followed by advancement of the microcatheter. With the microcatheter parked within the aneurysm, using four detachable Penumbra framing coils (two 28 mm x 60 cm, one 24 mm x 60 cm, one 22 mm x 60 cm), three pushable 10 mm x 4 mm Tornado microcoils and three packing POD 60 cm coils. As there was persistent flow across the aneurysm, the entry of the aneurysm was embolized with MVP plug (9 mm x 16 mm). Post embolization angiogram of splenic artery demonstrated satisfactory occlusion of these aneurysm with reconstitution of the inferior branches of spleen through gastric branches. Also, note was made of reconstitution of superior pole of spleen through gastric branches. The cobra as well as microcatheters were removed. A sheath angiogram demonstrated satisfactory axis of superficial femoral artery. Hemostasis was achieved with Angio-Seal closure device. The patient tolerated the procedure well and there was no immediate competition. The patient was transferred to holding area in stable condition. Procedure Note Efraín Henderson MD - 03/24/2018 History: This is a 52-year-old the female with Sanchez cirrhosis and refractory ascites status post TIPS on 12/18. She was admitted with the concern for splenic artery aneurysm, which is continue to expand overtime and has reached more than 2.8 cm in cross-section. The patient was referred for embolization of the splenic artery aneurysm. Grievance And Appeals Specialist: Dr. Vinay Henderson, attending physician. PROCEDURE: 1. Ultrasound-guided access of right common femoral artery. 2. Selective catheterization of celiac artery and angiogram. 3. Selective catheterization of splenic artery and angiogram. 4. Embolization of splenic artery aneurysm with framing coil was and MVP plug. 5. Post embolization angiogram of splenic artery. Anesthesia: 1. Local anesthesia-10 mL of 1 percent lidocaine. 2. Intravenous conscious sedation with Versed 1mg and Dilaudid 50 mg Start: 1715 Sedation Initiation time: 1715 End time: 1838 Fluoroscopy time: 14 minutes Contrast: 95 mL of Iopamidol 300 Procedure in detail: The procedure, risks, benefits and alternate iswere explained to the patient and informed consent was obtained. The patient was placed supine on the angiographic table. The right groin was prepped and draped in the usual sterile manner. The patient received intravenous conscious sedation with Versed andDilaudid. Patient's vital signs were monitored by a qualified radiology nurse throughout the procedure. Limited ultrasound of right groin demonstrated patent right common femoral artery. A ty scale image was documented. After anesthetizing with 1 percent lidocaine, the right common femoral artery was accessed using a micropuncture needle. The needle entry was documented. After series of exchanges a 5 Turkmen vascular sheath was placed. Using a Sos Omni catheter, the celiac artery was catheterized. A celiac angiogram was obtained, which demonstrated tortuous splenic artery with known splenic artery aneurysm measuring 2.8 cm in cross-section, at the distal trifurcation close to the spleen. A 2.8 Turkmen Lantern microcatheter was advanced coaxially and splenic artery angiogram was obtained. The angiogram confirmed the aneurysm. Attempt to advance the framing coil through the Sos Omni catheter was unsuccessful. The Sos Omni catheter was then exchanged for a 4 Turkmen Cobra catheter. The Cobra catheter was advanced into the splenic artery, followed by advancement of the microcatheter. With the microcatheter parked within the aneurysm, using four detachable Penumbra framing coils (two 28 mm x 60 cm, one 24 mm x 60 cm, one 22 mm x 60 cm), threepushable 10 mm x 4 mm Tornado microcoils and three packing POD 60 cm coils. As there was persistent flow across the aneurysm, the entry of the aneurysm was embolized with MVP plug (9 mm x 16 mm). Post embolization angiogram of splenic artery demonstrated satisfactory occlusion of these aneurysm with reconstitution of the inferior branches of spleen through gastric branches. Also, note was made ofreconstitution of superior pole of spleen through gastric branches. The cobra as wellas microcatheters were removed. A sheath angiogram demonstrated satisfactory axis of superficial femoral artery. Hemostasis was achieved with Angio-Seal closure device. The patient tolerated the procedure well and there was no immediate competition. The patient was transferred to [facility] area in stable condition. IMPRESSION: Embolization of a large splenic artery aneurysm, asdescribed above. These findings were discussed with the transplant team. I, Dr. Vinay Henderson was present and performed the entire procedure. This report was electronically signed by EFRAÍN HENDERSON M.D. on 03/24/2018 12:29 PM . Susana COHN IR ORDERABLES * ECHO COMPLETE W BUBBLE STUDY (03/18/2018 4:03 PM RADIOSONDE OPERATOR) Anatomical Region Laterality Modality Color Flow Doppl er 03/18/2018 3:31 PM RADIOSONDE OPERATOR Narrative Procedure Note Mikie Benitez MD - 03/18/2018 Amor Farley DO ECHOCARDIOGRAPHY RAD IANT * TRANSFUSE RED BLOOD CELL LEUKOREDUCED UNIT(S) (03/16/2018 12:12 AM RADIOSONDE OPERATOR) Reji Hernandez MD NURSING - BLOOD PROD TRANSFUSION * CT ANGIO ABDOMEN PELVIS (03/15/2018 3:01 PM RADIOSONDE OPERATOR) Anatomical Region Laterality Modality Abdomen, Pelvis Computed Tomogra phy 03/15/2018 2:57 PM RADIOSONDE OPERATOR Impressions 03/16/2018 11:18 AM RADIOSONDE OPERATOR IMPRESSION: 1. Unchanged size of 1.9 cm splenic artery aneurysm without evidence of active contrast extravasation. No CT evidence of abdominal hemorrhage. 2. Hepatic cirrhosis with sequela of portal hypertension. Patent TIPS. Dictated by Dm Ackerman MD (radiology transporter). I, Dr. Janeth HOOVER M.D. have personally reviewed and interpreted this examination/study. This report was electronically signed by Janeth HOOVER M.D. ??on 03/16/2018 11:18 AM . 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 Portal venous and delayed phase images were also obtained. COMPARISON: Comparison is made to CT abdomen multiphase, 01/22/2018 FINDINGS: Abdominal aorta: There is no aortic dissection, intramural hematoma, penetrating atherosclerotic ulcer, or aneurysm. The aorta is normal in course and caliber. Abdominal aortic branches: *Celiac axis: Patent without significant focal stenosis. A replaced left hepatic artery arises from the left gastric artery. *Superior mesenteric artery: Patent without significant focal stenosis. *Inferior mesenteric artery: Patent without significant focal stenosis. *Right renal artery: Patent without significant focal stenosis. *Left renal artery: Patent without significant focal stenosis. *Right common iliac artery: Patent without significant focal stenosis. *Right external iliac artery: Patent without significant focal stenosis. *Right internal iliac artery: Patent without significant focal stenosis. *Left common iliac artery: Patent without significant focal stenosis. *Left external iliac artery: Patent without significant focal stenosis. *Left internal iliac artery: Patent without significant focal stenosis. The visible lung bases are clear. The heart size is normal without pericardial effusion. The liver has a nodular surface, consistent with hepatic cirrhosis. No arterially enhancing liver lesions are identified. The previously seen arterial enhancing observation in hepatic segment 7 is not seen on the present study. The portal vein is dilated, measuring 1.8 cm in diameter. A patent TIPS is identified. The main hepatic veins are patent without evidence of thrombi. The left portal vein is not opacified and likely thrombosed. A 1.9 cm splenic artery saccular aneurysm near the splenic hilum is unchanged in size. Gastroesophageal, perisplenic, and periumbilical varices are redemonstrated. Large volume ascites is seen. There is no evidence of intraperitoneal or retroperitoneal hemorrhage. The spleen is enlarged, measuring 16 cm in craniocaudal dimension. A large splenule is seen. The gallbladder is surgically absent. The intrahepatic and extrahepatic bile ducts are nondilated. The pancreas, and adrenal glands appear normal. The kidneys enhance symmetrically. There is no evidence of renal calculus or hydronephrosis. The distal esophagus and stomach appear normal. The small bowel and large bowel are normal in caliber without evidence of wall thickening or obstruction. The appendix is not seen; however, no inflammatory changes are seen in the right lower quadrant. No free air is identified within the abdomen. A few periportal and peripancreatic reactive lymph nodes are present. The urinary bladder is distended with fluid and appears normal. ?? The uterus is absent. ??There is no pelvic lymphadenopathy. Bone windows demonstrate no suspicious lytic or blastic lesions. The visible osseous structures are intact. 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 Portalvenous and delayed phase images were also obtained. COMPARISON: Comparison is made to CT abdomen multiphase, 01/22/2018 FINDINGS: Abdominal aorta: There is no aortic dissection, intramural hematoma, penetrating atherosclerotic ulcer, or aneurysm. The aorta is normal in course and caliber. Abdominal aortic branches: *Celiac axis: Patent without significant focal stenosis. A replaced left hepatic artery arises from the left gastric artery. *Superior mesenteric artery: Patent without significant focal stenosis. *Inferior mesenteric artery: Patent without significant focal stenosis. *Right renal artery: Patent without significant focal stenosis. *Left renal artery: Patent without significant focal stenosis. *Right common iliac artery: Patent without significant focal stenosis. *Right external iliac artery: Patent without significant focal stenosis. *Right internal iliac artery: Patent without significant focal stenosis. *Left common iliac artery: Patent without significant focal stenosis. *Left external iliac artery: Patent without significant focal stenosis. *Left internal iliac artery: Patent without significant focal stenosis. The visible lung bases are clear. The heart size is normal without pericardial effusion. The liver has a nodular surface, consistent with hepatic cirrhosis. No arterially enhancing liver lesions are identified. The previously seen arterial enhancing observation in hepatic segment 7 is not seen on the present study. The portal vein is dilated, measuring 1.8 cm in diameter.A patent TIPS is identified. The main hepatic veins are patent without evidence of thrombi. The left portal vein is not opacified and likely thrombosed. A 1.9 cm splenic artery saccular aneurysm near the splenic hilum is unchanged in size. Gastroesophageal, perisplenic, and periumbilical varices are redemonstrated. Large volume ascites is seen. There is no evidence of intraperitoneal or retroperitoneal hemorrhage.The spleen is enlarged, measuring 16 cm in craniocaudal dimension. A large splenule is seen. The gallbladder is surgically absent. The intrahepatic and extrahepatic bile ducts are nondilated. The pancreas, and adrenal glands appearnormal. The kidneys enhance symmetrically. There is no evidence of renalcalculus or hydronephrosis. The distal esophagus and stomach appear normal. The small bowel andlarge bowel are normal in caliber without evidence of wall thickening or obstruction. The appendix is not seen; however, no inflammatory changes are seen in the right lower quadrant. No free air is identified withinthe abdomen. A few periportal and peripancreatic reactive lymph nodes are present. The urinary bladder is distended with fluid and appears normal. The uterus is absent. There is no pelvic lymphadenopathy. Bone windows demonstrate no suspicious lytic or blastic lesions. The visible osseous structures are intact. IMPRESSION: 1. Unchanged size of 1.9 cm splenic artery aneurysm without evidence of active contrast extravasation. No CT evidence of abdominal hemorrhage. 2. Hepatic cirrhosis with sequela of portal hypertension. Patent TIPS. Dictated by Dm Ackerman MD (radiology transporter). I, Dr. Janeth HOOVER M.D. have personally reviewed and interpretedthis examination/study. This report was electronically signed by Janeth HOOVER M.D. on 03/16/2018 11:18 AM . Leonidas De La O MD CT ORDERABLES * HLA TYPING DNA LOW RESOLUTION DR,DQ (01/26/2018 12:38 PM RADIOSONDE OPERATOR) DR DQ Low Resolution DRB1-1 01 02/19/2018 9:14 AM RADIOSONDE OPERATOR [facility]) DR DQ Low Resolution DRB1-2 03 (DR17) 02/19/2018 9:14 AM RADIOSONDE OPERATOR [facility]) DR DQ Low Resolution DQB1-1 02 02/19/2018 9:14 AM RADIOSONDE OPERATOR [facility]) DR DQ Low Resolution DQB1-2 05 02/19/2018 9:14 AM RADIOSONDE OPERATOR [facility]) DR DQ Low Resolution DRB3-1 01 02/19/2018 9:14 AM RADIOSONDE OPERATOR [facility]) DR DQ Low Resolution DRB3-2 - 02/19/2018 9:14 AM RADIOSONDE OPERATOR [facility]) DR DQ Low Resolution DRB4-1 Negative 02/19/2018 9:14 AM RADIOSONDE OPERATOR [facility]) DR DQ Low Resolution DRB4-2 - 02/19/2018 9:14 AM RADIOSONDE OPERATOR [facility]) DR DQ Low Resolution DRB5-1 Negative 02/19/2018 9:14 AM RADIOSONDE OPERATOR [facility]) DR DQ Low Resolution DRB5-2 - 02/19/2018 9:14 AM RADIOSONDE OPERATOR [facility]) DR DQ Low Resolution Methodology SSOP 02/19/2018 9:14 AM RADIOSONDE OPERATOR [facility]) Comment DR DQ Low Resolution DR52 02/19/2018 9:14 AM [facility] ([place]) DR DQ Low Resolution test date 02/02/2018 02/19/2018 9:14 AM [facility] ([place]) Comment: This test was developed and its performance characteristics determined by the [facility]. ??It has not been cleared or approved by the U.S. Food and Drug Administration. ??The FDA has determined that such clearance or approval is not necessary. ??This test is used for clinical purposes. ??It should not be regarded as investigational or for research. This laboratory is certified under the Clinical Laboratory Improvement Amendments of 1988 (CLIA-88) as qualified to perform high complexity clinical laboratory testing. ??CLIA ID# [id number] Performed at: ??[facility], [address] @ [place], [place] ??[id number] Runner On: Russ Mtz MD, Blood BLOOD SPECIMEN / Unknown Lab Venipuncture / Unknown 01/26/2018 12:38 PM RADIOSONDE OPERATOR 01/27/2018 12:38 PM RADIOSONDE OPERATOR Jose Guadalupe Morales MD LAB - BLOOD BANK ORD ERABLES Performing Organization Address City/State/[facility] Co de Phone Number [facility] ([place]) [address] [id number] * (ABNORMAL) URINALYSIS NO MICROSCOPIC NO CULTURE (01/26/2018 3:48 AM RADIOSONDE OPERATOR) Color UA [place](A) Straw, Yellow, Colorless, Light Yellow 01/26/2018 4:10 AM [facility] Clarity UA Clear Clear 01/26/2018 4:10 AM [facility] Specific [place] UA 1.027 1.001 - 1.030 01/26/2018 4:10 AM [facility] pH UA 6.5 5.0 - 8.0 01/26/2018 4:10 AM [facility] Protein UA 30(A) <=20 mg/dL 01/26/2018 4:10 AM [facility] Glucose UA Negative Negative mg/dL 01/26/2018 4:10 AM [facility] Ketone UA Negative Negative mg/dL 01/26/2018 4:10 AM [facility] Bilirubin UA 1.0(A) Negative mg/dL 01/26/2018 4:10 AM [facility] Comment: Urine Bilirubin result confirmed by manual Ictotest. Blood UA Negative Negative 01/26/2018 4:10 AM [facility] Nitrite UA Negative Negative 01/26/2018 4:10 AM [facility] Leukocyte Esterase Trace(A) Negative 01/26/2018 4:10 AM [facility] Urobilinogen UA 8.0(H) <2.0 mg/dL 8 4:10 AM [facility] Urine URINE SPECIMEN OBTAINED BY CLEAN CATCH PROCEDURE / Unknown Collection / Unknown 01/26/2018 3:48 AM RADIOSONDE OPERATOR 01/26/2018 3:50 AM [facility] Calos Daniel MD LAB - URIN ALYSIS ORDERABLES Performing Organization Address City/State/[facility] Co de Phone Number [address] [phone] * (ABNORMAL) BLOOD GASES ARTERIAL (01/23/2018 12:46 PM RADIOSONDE OPERATOR) pH Arterial 7.35 7.35 - 7.45 01/23/2018 12:57 PM [facility] pCO2 Arterial 46(H) 35 - 45 mmHg 01/23/2018 12:57 PM [facility] pO2 Arterial 80 77 - 101 mmHg 01/23/2018 12:57 PM [facility] HCO3 Arterial 25.0 22.0 - 26.0 mmol/L 01/23/2018 12:57 PM [facility] TCO2 Arterial 26.5 25.0 - 29.0 mmol/L 01/23/2018 12:57 PM [facility] Base Excess Arterial -0.6 -2.0 - 2.0 mmol/L 01/23/2018 12:57 PM [facility] Hemoglobin Arterial 7.8(L) 12.0 - 15.5 g/dL 01/23/2018 12:57 PM [facility] Oxyhemoglobin Arterial 93.3(L) 95.0 - 100.0 % 01/23/2018 12:57 PM [facility] Carboxyhemoglobin 0.3 0.0 - 3.0 % 01/23/2018 12:57 PM [facility] Methemoglobin 0.7 0.0 - 2.0 % 01/23/2018 12:57 PM [facility] FI O2 Arterial 29.0 % 01/23/2018 12:57 PM [facility] Blood, arterial ARTERIAL BLOOD SPECIMEN / Unknown Arterial Puncture / Unknown 01/23/2018 12:46 PM RADIOSONDE OPERATOR 01/23/2018 12:53 PM RADIOSONDE OPERATOR Blake Sapp DO LAB - BLOOD GASES OR DERABLES [address] [phone] * FOLATE (01/23/2018 9:13 AM RADIOSONDE OPERATOR) Folate 9.9 7.0 - 31.4 ng/mL 01/23/2018 11:41 AM [facility] Blood BLOOD SPECIMEN / Unknown 01/23/2018 9:13 AM RADIOSONDE OPERATOR 01/23/2018 9:21 AM RADIOSONDE OPERATOR Viv Stone MD LAB - CHEMISTRY CORNELIA GAVIN Performing Organization Address City/[facility]/ZIP Co de Phone Number [address] [phone] * (ABNORMAL) VITAMIN B12 (01/23/2018 9:13 AM RADIOSONDE OPERATOR) Vitamin B12 1,741(H) 213 - 816 pg/mL 01/23/2018 11:41 AM RADIOSONDE OPERATOR [facility] Blood BLOOD SPECIMEN / Unknown 01/23/2018 9:13 AM RADIOSONDE OPERATOR 01/23/2018 9:21 AM RADIOSONDE OPERATOR Viv Stone MD LAB - CHEMISTRY CORNELIA GAVIN [address] [phone] * TSH (01/23/2018 9:13 AM RADIOSONDE OPERATOR) Only the most recent of2 resultswithin the time period is included. TSH 1.872 0.350 - 4.940 uIU/mL 01/23/2018 10:04 AM RADIOSONDE OPERATOR [facility] Blood BLOOD SPECIMEN / Unknown 01/23/2018 9:13 AM RADIOSONDE OPERATOR 01/23/2018 9:21 AM RADIOSONDE OPERATOR Blake Sapp DO LAB - CHEMISTRY CORNELIA GAVIN Performing Organization Address City/[facility]/ZIP Co de Phone Number [address] [phone] * TRANSFERRIN (01/21/2018 10:06 AM RADIOSONDE OPERATOR) [facility] Transferrin 218 174 - 382 mg/dL 01/21/2018 2:05 PM RADIOSONDE OPERATOR [facility] Transferrin Saturation % 37 16 - 50 % 01/21/2018 2:05 PM RADIOSONDE OPERATOR [facility] Blood BLOOD SPECIMEN / Unknown Lab Venipuncture / Unknown 01/21/2018 10:06 AM RADIOSONDE OPERATOR 01/21/2018 10:37 AM RADIOSONDE OPERATOR Viv Stone MD LAB - CHEMISTRY CORNELIA GAVIN [address] [phone] * CARDIAC PROCEDURE ORDER (01/13/2018 8:11 AM RADIOSONDE OPERATOR) Narrative 01/13/2018 8:11 AM RADIOSONDE OPERATOR Ordered by an unspecified provider. Scanned Document CARDIAC SERVICES ORD ERABLES * LARGE VOLUME PARACENTESIS (01/05/2018 1:49 PM RADIOSONDE OPERATOR) Pathologist [facility] Report Endoscopy POC Endoscopy Department Report _ Patient Name: Sharon Carbajal ?Procedure Date: 01/05/2018 1:49 PM ? Date of : 1965 Classification: Outpatient ?Gender: Female _ Providers: ?Katherine Kilpatrick PA-C, Blake Herring MD Referring MD: ? Procedure: ?Paracentesis (Repeat) Indications: ?Ascites, Ascites shown on ultrasound, Diagnostic to ?rule out peritonitis, Cirrhosis, Portal ?hypertension, AIH Medications: ?1% Lidocaine 10 mL SubQ Description of Procedure: After obtaining informed consent, the procedure was ?performed. Throughout the procedure, the patient's ?blood pressure, pulse, and oxygen saturations were ?monitored continuously.The paracentesis was ?accomplished without difficulty. The patient ?tolerated the procedure well. ? Findings: ? Prior to the procedure, the abdomen was examined and demonstrated ? moderate distention with ascites and a fluid wave to be present. With ? the patient in a supine with head elevated position, the procedure site ? was sterilely prepped using chloroprep and draped in the usual fashion. ? 10 mL of 1% lidocaine was infiltrated into the skin and subcutaneous ? tissues. Using a left lower quadrant approach, a small stab incision was ? made with a disposable blade and a 5 inch 12 gauge paracentesis needle ? and cannula system was inserted into the peritoneal cavity under ? ultrasound guidance. Aspiration demonstrated no blood and good return of ? peritoneal fluid. One pass was made. The trocar was then removed leaving ? the catheter in place. ? 3.5 liters of clear, yellow fluid was withdrawn using a vacuum bottle. ? Fluid was sent for cell count and differential and culture and ? sensitivities. Gauze and a Band-Aid were applied. ? Estimated Blood Loss: ? Estimated blood loss: none. Complications: ?No immediate complications. Impression: ? - Paracentesis successfully performed. ?- Test results pending. Recommendation: ? - Discharge patient to home (ambulatory). ?- Return to liver clinic as previously scheduled. ?- Repeat paracentesis PRN for therapeutic purposes. ? Attending Participation: ??I was present for the gambino portions of this ?procedure and either I or my colleague was ?immediately available for all non-gambino portions of ?the procedure. ? Procedure Code(s): ? --- Professional --- ? 47646, Abdominal paracentesis (diagnostic or therapeutic); with imaging ? guidance Diagnosis Code(s): ?--- Professional --- ?R18.8, Other ascites ?K74.60, Unspecified cirrhosis of liver ?K76.6, Portal hypertension ?K75.4, Autoimmune hepatitis CPT copyright 2016 [employer]. All rights reserved. The codes documented in this report are preliminary and upon knockdown worker review may be revised to meet current compliance requirements. Katherine Kilpatrick PA-C 01/05/2018 1:57:45 PM This report has been signed electronically. __ Blake Herring MD Note Initiated On: 01/05/2018 1:49 PM Number of Addenda: 0 ? [facility] ? [address] [place] [address] [facility] [place] 01/05/2018 1:49 PM RADIOSONDE OPERATOR Katherine Kilpatrick PA-C GI PROCEDURE OR DERABLES [facility] [place] * CELL COUNT W DIFFERENTIAL FLUID (01/05/2018 9:55 AM RADIOSONDE OPERATOR) Only the most recent of47 resultswithin the time period is included. Color Fluid Straw Colorless, Straw 01/05/2018 10:20 AM [facility] Clarity Fluid Clear Clear 01/05/2018 10:20 AM [facility] Volume Fluid 2.5 mL 01/05/2018 10:20 AM [facility] WBC Fluid 229 Reference Range Not Established /uL 01/05/2018 10:20 AM [facility] RBC Fluid 1,000 Reference Range Not Established /uL 01/05/2018 10:20 AM [facility] Differential Manual Differential to follow. 01/05/2018 10:20 AM [facility] Fluid (Ascities) Collection / Unknown 01/05/2018 9:55 AM RADIOSONDE OPERATOR 01/05/2018 10:06 AM RADIOSONDE OPERATOR Narrative [facility] - 01/05/2018 10:20 AM RADIOSONDE OPERATOR No established reference range for WBC and RBC body fluid count. Katherine BurgessKrish PA-C LAB - BODY FLUI D ORDERABLES Performing Organization Address City/[facility]/ZIP Co de Phone Number [address] [phone] * DIFFERENTIAL MANUAL FLUID (01/05/2018 9:55 AM RADIOSONDE OPERATOR) Only the most recent of47 resultswithin the time period is included. Lymphocytes % Fluid 18 % 01/05/2018 10:40 AM [facility] Monocytes % Fluid 22 % 018 10:40 AM [facility] Macrophages % Fluid 50 % 01/05/2018 10:40 AM [facility] Mesothelials % Fluid 10 % 01/05/2018 10:40 AM [facility] Fluid (Ascities) Collection / Unknown 01/05/2018 9:55 AM RADIOSONDE OPERATOR 01/05/2018 10:06 AM RADIOSONDE OPERATOR Narrative [facility] - 01/05/2018 10:40 AM RADIOSONDE OPERATOR Rare mitosis. Katherine BurgessKrish PA-C LAB - BODY FLUI D ORDERABLES Performing Organization Address City/[facility] Co de Phone Number [address] [phone] * CULTURE FLUID+GRAM STAIN (01/05/2018 9:55 AM RADIOSONDE OPERATOR) Only the most recent of24 resultswithin the time period is included. Culture No growth BIJU 01/10/2018 1:19 PM [facility] Gram Stain 01/10/2018 1:19 PM [facility] Comment:bottles only Fluid ASCITIC FLUID SPECIMEN / Unknown Collection / Unknown 01/05/2018 9:55 AM RADIOSONDE OPERATOR 01/05/2018 10:07 AM RADIOSONDE OPERATOR Katherine Kilpatrick PA-C LAB - MICROBIOL OGY ORDERABLES [facility] [address] [place], [place] [address], [facility] [phone] * LARGE VOLUME PARACENTESIS (12/22/2017 1:23 PM CDT) Report Endoscopy POC Endoscopy Department Report _ Patient Name: Sharon Carbajal ?Procedure Date: 12/22/2017 1:23 PM ? Date of : 1965 Classification: Outpatient ?Gender: Female _ Providers: ?Katherine Kilpatrick PA-C, Corrine French MD Referring MD: ? 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 Throughout the procedure, the patient's ?blood pressure, pulse, and oxygen saturations were ?monitored continuously. The paracentesis was ?accomplished without difficulty. The patient ?tolerated the procedure well. ? Findings: ? Prior to the procedure, the abdomen was examined and demonstrated ? moderate distention with ascites and a fluid wave to be present. With ? the patient in a supine with head elevated position, the procedure site ? was sterilely prepped using chloroprep and draped in the usual fashion. ? 10 mL of 1% lidocaine was infiltrated into the skin and subcutaneous ? tissues. Using a left lower quadrant approach, a small stab incision was ? made with a disposable blade and a 5 inch 12 gauge paracentesis needle ? and cannula system was inserted into the peritoneal cavity under ? ultrasound guidance. Aspiration demonstrated no blood and good return of ? peritoneal fluid. One pass was made. The trocar was then removed leaving ? the catheter in place. ? 4 liters of clear, yellow fluid was withdrawn using a vacuum bottle. ? Fluid was sent for cell count and differential and culture and ? sensitivities. Gauze and a Band-Aid were applied. ? Estimated Blood Loss: ? Estimated blood loss: none. Complications: ?No immediate complications. Impression: ? - Paracentesis successfully performed. ?- Test results pending. Recommendation: ? - Discharge patient to home (ambulatory). ?- Return to liver clinic as previously scheduled. ?- Repeat paracentesis PRN for therapeutic purposes. ? Attending Participation: ??I was present for the gambino portions of this ?procedure and either I or my colleague was ?immediately available for all non-gambino portions of ?the procedure. ? Procedure Code(s): ? --- Professional --- ? 89101, Abdominal paracentesis (diagnostic or therapeutic); with imaging ? guidance Diagnosis Code(s): ?--- Professional --- ?R18.8, Other ascites ?K74.60, Unspecified cirrhosis of liver ?K76.89, Other specified diseases of liver ?K76.6, Portal hypertension CPT copyright 2016 [employer]. All rights reserved. The codes documented in this report are preliminary and upon knockdown worker review may be revised to meet current compliance requirements. Katherine Kilpatrick PA-C 12/22/2017 1:42:52 PM This report has been signed electronically. _ Corrine French MD Note Initiated On: 12/22/2017 1:23 PM Number of Addenda: 0 ? [facility] ? [address] [facility] [place] [address] [facility] 12/22/2017 1:23 PM CDT Katherine Kilpatrick PA-C GI PROCEDURE OR DERABLES [facility] * IR TIPS PROCEDURE (12/04/2017 3:44 PM CDT) Anatomical Region Laterality Modality X-Ray Angiograph y 12/04/2017 4:11 PM CDT Impressions 12/05/2017 8:39 AM CDT Impression: Successful creation of a transjugular intrahepatic portosystemic shunt (TIPS) with placement of an 8-10 mm x 9 cm Viatorr stent graft, as described above. The pre-shunt portosystemic gradient was 13-14 mmHg, and the post-shunt portosystemic gradient is 6 mmHg. Successful paracentesis with 3500 mL of straw-colored ascites withdrawn. Follow up recommendations: 1.Admit to MICU to observe for bleeding and encephalopathy. Appreciate assistance. Will follow while admitted. 2.CBC q8h to evaluate for bleeding. 3.Upon discharge, the patient will need a Liver Doppler in 1 month followed by an IR clinic visit after imaging is obtained. The patient will be contacted by IR nursing to schedule. 4.The patient should continue to follow-up with hepatology for management of cirrhosis/portal HTN. Dr. Madison performed/was present throughout the procedure. Discussed with Blake Sapp with the MICU team at 3:54 pm This report was approved ??by Alejandro Cobb ?? on 12/04/2017 6:00 PM . I, Dr. INA GARCIA M.D. have personally reviewed and interpreted this examination/study. This report was electronically signed by INA GARCIA M.D. ??on 12/05/2017 8:39 AM . Narrative 12/05/2017 8:39 AM CDT History: 52-year-old female with a history of SANCHEZ cirrhosis and SLE with refractory ascites. The patient is currently on a low salt diet, takes Aldactone and Lasix, and continues to require weekly large volume paracenteses. She was referred for transjugular intrahepatic portosystemic shunt placement. Patient presents today for elective TIPS with paracentesis. Operators: 1.Dr. Gerardo Madison, Attending Physician 2.Dr. Efraín Henderson, Attending Physician 3.Dr. Alejandro Cobb, Fellow Physician Anesthesia: 1.Local anesthesia - 10 mL of 1% lidocaine 2.General anesthesia - per anesthesiology Additional medications: 1. 2 g Ancef, IV. Procedure: 1.Ultrasound-guided paracentesis. 2.Ultrasound-guided access of the right internal jugular vein. 3.Pressure measurement in the right atrium. 4.Selective catheterization of the middle hepatic vein and venogram. 5.Pressure measurement in the middle hepatic vein. 6.Limited ultrasound examination of the right upper quadrant of the abdomen/liver. 7.Access of the left portal vein through the middle hepatic vein using the Rosc-Uchida needle assembly under sonographic guidance. 8.Balloon dilation of the hepatic parenchymal tract with a 4 mm x 4 cm Cobb balloon. 9.Selective catheterization of the main portal vein and venogram. 10.Pressure measurement in the main portal vein. 11.Creation of a transjugular intrahepatic portosystemic shunt (TIPS) with placement of an 8-10 mm x 9 cm Viatorr stent graft (7 cm covered and 2 cm uncovered) under fluoroscopic guidance. 12.Balloon dilatation of the TIPS with an 8 mm x 4 cm and 10 mm x 4cm Conquest high pressure balloon. 13.Post-stent pressure measurements in the portal vein and right atrium. Fluoroscopic time: 34.3 minutes ?Contrast: 130 mL of Isoview 300 Procedure in detail: The procedure, risks, and possible complications were explained to the patient, and informed consent was obtained. The patient was brought to the angiography suite and placed supine on the procedure table. The patient was given general anesthesia and monitored throughout the procedure by the anesthesiology team. The right lower neck and right abdomen were prepped and draped in the usual sterile manner. First, limited ultrasound examination of the right mid to lower abdomen was performed demonstrating large volume ascites. A suitable insertion site was chosen and marked with ink on the skin. The insertion site was anesthetized locally with 1% lidocaine. A 5 Turkmen one-step coaxial needle catheter system was advanced into the peritoneal cavity. Straw-colored ascites was withdrawn. The catheter was left in place for the duration of the procedure. Limited ultrasound of the right internal jugular vein demonstrated patency and compressibility. A grayscale image was documented. A small skin incision was made in the right lower neck. Under realtime ultrasound guidance, the right internal jugular vein was accessed using a micropuncture needle. The needle entry was documented. After a series of exchanges, a 10-Turkmen vascular sheath was placed. The sheath was advanced into the right atrium. Right atrial pressure was measured and found to be 16 mmHg. Using a 5-Turkmen MPA catheter, the middle hepatic vein was catheterized and a venogram was obtained, which demonstrated a normal hepatic vein pattern. Hepatic pressures were then measured. Free hepatic vein pressures measured 19 and 21 mmHg on initial and repeat measurements. The balloon occluded portal pressure was 29 mmHg. Repeat balloon occluded portal pressure measurement measured 30 mmHg. Limited transabdominal sonographic evaluation of the liver was performed, and the sheath and Rosch-Uchida needle assembly with a 55 cm 21-gauge Chiba needle were identified within the middle hepatic vein. An imaging plane was identified between the middle hepatic vein and the left portal vein. ??Using a Rosch-Uchida needle assembly and the 21-gauge Chiba needle, the left portal vein was accessed under sonographic guidance. The tract was dilated with a 4 mm x 4 cm Cobb balloon. A catheter was advanced over a guidewire into the main portal vein and venogram was performed, which showed hepatopedal flow and filling of multiple gastroesophageal varices. Direct portal pressure was measured to be 27 mmHg. The sheath was advanced over the wire into the portal vein. This was followed by deployment of a 10 mm x 9 cm Viatorr stent graft (2 cm uncovered and 7 cm covered). The stent was then dilated with an 8 mm x 4 cm and 10mm x 4cm Conquest high pressure balloon under fluoroscopic guidance. Portal venogram following stent placement demonstrated a brisk shunt between the portal vein and right atrium with decreased filling of the previously seen varices and collateral vessels. The pressures following shunt placement were: Portal vein: 27 mmHg Right atrium: 21 mmHg Portosystemic gradient (portal-RA): 6 mmHg The 5 Turkmen one-step sheath for the paracentesis was removed from the abdomen. A total of 3500 mL of straw-colored ascites was removed. A postparacentesis image was obtained, demonstrating minimal residual intraperitoneal fluid. The jugular sheath was removed and hemostasis was achieved with manual compression. Sterile dressings were applied. The patient was extubated and transferred to post anesthesia care recovery in stable condition. There were no immediate complications associated with the procedure. Procedure Note Ina Garcia MD - 12/05/2017 History: 52-year-old female with a history of SANCHEZ cirrhosis and SLEwith refractory ascites. The patient is currently on a low salt diet, takes Aldactone and Lasix, and continues to require weekly large volume paracenteses. She was referred for transjugular intrahepaticportosystemic shunt placement. Patient presents today for elective TIPS with paracentesis. Operators: 1.Dr. Gerardo Madison, Attending Physician 2.Dr. Efraín Henderson, Attending Physician 3.Dr. Alejandro Cobb, Fellow Physician Anesthesia: 1.Local anesthesia - 10 mL of 1% lidocaine 2.General anesthesia - per anesthesiology Additional medications: 1. 2 g Ancef, IV. Procedure: 1.Ultrasound-guided paracentesis. 2.Ultrasound-guided access of the right internal jugular vein. 3.Pressure measurement in the right atrium. 4.Selective catheterization of the middle hepatic vein and venogram. 5.Pressure measurement in the middle hepatic vein. 6.Limited ultrasound examination of the right upper quadrant of the abdomen/liver. 7.Access of the left portal vein through the middle hepatic vein usingthe Rosch-Uchida needle assembly under sonographic guidance. 8.Balloon dilation of the hepatic parenchymal tract with a 4 mm x 4 cm Cobb balloon. 9.Selective catheterization of the main portal vein and venogram. 10.Pressure measurement in the main portal vein. 11.Creation of a transjugular intrahepatic portosystemic shunt (TIPS)with placement of an 8-10 mm x 9 cm Viatorr stent graft (7 cm covered and 2cm uncovered) under fluoroscopic guidance. 12.Balloon dilatation of the TIPS with an 8 mm x 4 cm and 10 mm x 4cm Conquest high pressure balloon. 13.Post-stent pressure measurements in the portal vein and right atrium. Fluoroscopic time: 34.3 minutes Contrast: 130 mL of Isoview 300 Procedure in detail: The procedure, risks, and possible complications were explained to the patient, and informed consent was obtained. The patient was brought tothe angiography suite and placed supine on the procedure table. The patient was given general anesthesia and monitored throughout the procedure bythe anesthesiology team. The right lower neck and right abdomen were prepped and draped in the usual sterile manner. First, limited ultrasound examination of the right mid to lower abdomen was performed demonstrating large volume ascites. A suitable insertion site was chosen and marked with ink on the skin. The insertion site was anesthetized locally with 1% lidocaine. A 5 Turkmen one-step coaxial needle catheter system was advanced into the peritoneal cavity. Straw-colored ascites was withdrawn. The catheter was left in place for the duration of the procedure. Limited ultrasound of the right internal jugular vein demonstratedpatency and compressibility. A grayscale image was documented. A small skin incision was made in the right lower neck. Under realtime ultrasound guidance, the right internal jugular vein was accessed using a micropuncture needle. The needle entry was documented. After a series of exchanges, a 10-Turkmen vascular sheath was placed. The sheath was advanced into the right atrium. Right atrial pressure was measured and found to be 16 mmHg. Using a 5-Turkmen MPA catheter, the middle hepatic vein was catheterized and a venogram was obtained, which demonstrated a normal hepatic vein pattern. Hepatic pressures were then measured. Free hepatic vein pressures measured 19 and 21 mmHg on initial and repeat measurements. The balloon occluded portal pressure was 29mmHg. Repeat balloon occluded portal pressure measurement measured 30 mmHg. Limited transabdominal sonographic evaluation of the liver wasperformed, and the sheath and Rosch-Uchida needle assembly with a 55 cm 21-gauge Chiba needle were identified within the middle hepatic vein. An imaging plane was identified between the middle hepatic vein and the left portal vein. Using a Rosch-Uchida needle assembly and the 21-gauge Chibaneedle, the left portal vein was accessed under sonographic guidance. The tract was dilated with a 4 mm x 4 cm Cobb balloon. A catheter was advanced over a guidewire into the main portal vein and venogram was performed, which showed hepatopedal flow and filling of multiple gastroesophageal varices. Direct portal pressure was measured to be 27 mmHg. The sheath was advanced over the wire into the portal vein. This was followed by deployment of a 10 mm x 9 cm Viatorr stent graft (2 cm uncovered and 7 cm covered). The stent was then dilated with an 8 mm x 4 cm and 10mm x 4cm Conquest high pressure balloon under fluoroscopic guidance. Portal venogram following stent placement demonstrated a brisk shunt between the portal vein and right atrium with decreased filling of the previously seen varices and collateral vessels. The pressures following shunt placement were: Portal vein: 27 mmHg Right atrium: 21 mmHg Portosystemic gradient (portal-RA): 6 mmHg The 5 Turkmen one-step sheath for the paracentesis was removed from the abdomen. A total of 3500 mL of straw-colored ascites was removed. A postparacentesis image was obtained, demonstrating minimal residual intraperitoneal fluid. The jugular sheath was removed and hemostasis was achieved with manual compression. Sterile dressings were applied. The patient was extubated and transferred to post anesthesia carerecovery in stable condition. There were no immediate complications associatedwith the procedure. Impression: Successful creation of a transjugular intrahepatic portosystemic shunt (TIPS) with placement of an 8-10 mm x 9 cm Viatorr stent graft, as described above. The pre-shunt portosystemic gradient was 13-14 mmHg,and the post-shunt portosystemic gradient is 6 mmHg. Successful paracentesis with 3500 mL of straw-colored ascites withdrawn. Follow up recommendations: 1.Admit to MICU to observe for bleeding and encephalopathy. Appreciate assistance. Will follow while admitted. 2.CBC q8h to evaluate for bleeding. 3.Upon discharge, the patient will need a Liver Doppler in 1 month followed by an IR clinic visit after imaging is obtained. The patientwill be contacted by IR nursing to schedule. 4.The patient should continue to follow-up with hepatology formanagement of cirrhosis/portal HTN. Dr. Madison performed/was present throughout the procedure. Discussed with Blake Sapp with the MICU team at 3:54 pm This report was approved by Alejandro Cobb on 12/04/2017 6:00 PM . I, Dr. INA GARCIA M.D. have personally reviewed and interpreted this examination/study. This report was electronically signed by INA GARCIA M.D. on 12/05/2017 8:39 AM . Garrett Grissom MD IR ORDERABLES * LARGE VOLUME PARACENTESIS (11/27/2017 3:33 PM CDT) Report Endoscopy POC Endoscopy Department Report __ _ Patient Name: Sharon Carbajal ?Procedure Date: 11/27/2017 3:33 PM ? Date of : 1965 Classification: Outpatient ?Gender: Female __ _ Providers: ?Katherine Kilpatrick PA-C, Caitlin Dejesus MD Referring MD: ? 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 Throughout the procedure, the patient's ?blood pressure, pulse, and oxygen saturations were ?monitored continuously. The paracentesis was ?accomplished without difficulty. The patient ?tolerated the procedure well. ? Findings: ? Prior to the procedure, the abdomen was examined and demonstrated ? moderate distention with ascites and a fluid wave to be present. With ? the patient in a supine with head elevated position, the procedure site ? was sterilely prepped using chloroprep and draped in the usual fashion. ? 10 mL of 1% lidocaine was infiltrated into the skin and subcutaneous ? tissues. Using a left lower quadrant approach, a small stab incision was ? made with a disposable blade and a 5 inch 12 gauge paracentesis needle ? and cannula system was inserted into the peritoneal cavity under ? ultrasound guidance. Aspiration demonstrated no blood and good return of ? peritoneal fluid. One pass was made. The trocar was then removed leaving ? the catheter in place. ? 5.7 liters of clear, yellow fluid was withdrawn using a vacuum bottle. ? Fluid was sent for cell count and differential and culture and ? sensitivities. Gauze and a Band-Aid were applied. ? 150 mL of 25% Albumin was administered during the course of the ? procedure to treat the patient for prophylactically for potential ? hypotension. ? Estimated Blood Loss: ? Estimated blood loss: none. Complications: ?No immediate complications. Impression: ? - Paracentesis successfully performed. ?- Test results pending. Recommendation: ? - Discharge patient to home (ambulatory). ? Attending Participation: ??I was present for the gambino portions of this ?procedure and either I or my colleague was ?immediately available for all non-gambino portions of ?the procedure. ? Procedure Code(s): ? --- Professional --- ? 63658, Abdominal paracentesis (diagnostic or therapeutic); with imaging ? guidance Diagnosis Code(s): ?--- Professional --- ?R18.8, Other ascites ?K74.60, Unspecified cirrhosis of liver ?K76.89, Other specified diseases of liver ?K76.6, Portal hypertension CPT copyright 2016 [employer]. All rights reserved. The codes documented in this report are preliminary and upon knockdown worker review may be revised to meet current compliance requirements. Katherine Kilpatrick PA-C 11/27/2017 3:36:28 PM This report has been signed electronically. Caitlin Dejesus MD Note Initiated On: 11/27/2017 3:33 PM Number of Addenda: 0 ? [facility] ? [address] [place] [address] [facility] 11/27/2017 3:33 PM CDT Katherine Kilpatrick PA-C GI PROCEDURE OR DERABLES [facility] * LARGE VOLUME PARACENTESIS (11/20/2017 3:51 PM CDT) Report Endoscopy POC Endoscopy Department Report __ _ Patient Name: Sharon Carbajal ?Procedure Date: 11/20/2017 3:51 PM ? Date of : 1965 Classification: Outpatient ?Gender: Female __ _ Providers: ?Katherine Kilpatrick PA-C, Keke Benson Referring MD: ? 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 Throughout the procedure, the patient's ?blood pressure, pulse, and oxygen saturations were ?monitored continuously. The paracentesis was ?accomplished without difficulty. The patient ?tolerated the procedure well. ? Findings: ? Prior to the procedure, the abdomen was examined and demonstrated ? moderate distention with ascites and a fluid wave to be present. With ? the patient in a supine with head elevated position, the procedure site ? was sterilely prepped using chloroprep and draped in the usual fashion. ? 10 mL of 1% lidocaine was infiltrated into the skin and subcutaneous ? tissues. Using a left lower quadrant approach, a small stab incision was ? made with a disposable blade and a 5 inch 12 gauge paracentesis needle ? and cannula system was inserted into the peritoneal cavity under ? ultrasound guidance. Aspiration demonstrated no blood and good return of ? peritoneal fluid. One pass was made. The trocar was then removed leaving ? the catheter in place. ? 6.7 liters of clear, yellow fluid was withdrawn using a vacuum bottle. ? Fluid was sent for cell count and differential and culture and ? sensitivities. Gauze and a Band-Aid were applied. ? 150 mL of 25% Albumin was administered during the course of the ? procedure to treat the patient for prophylactically for potential ? hypotension. ? Estimated Blood Loss: ? Estimated blood loss: none. Complications: ?No immediate complications. Impression: ? - Paracentesis successfully performed. ?- Test results pending. Recommendation: ? - Discharge patient to home (ambulatory). ?- Return to liver clinic as previously scheduled. ?- Repeat paracentesis PRN for therapeutic purposes. ? Attending Participation: ??I was present for the gambino portions of this ?procedure and either I or my colleague was ?immediately available for all non-gambino portions of ?the procedure. ? Procedure Code(s): ? --- Professional --- ? 23628, Abdominal paracentesis (diagnostic or therapeutic); with imaging ? guidance Diagnosis Code(s): ?--- Professional --- ?R18.8, Other ascites ?K74.60, Unspecified cirrhosis of liver ?K76.89, Other specified diseases of liver ?K76.6, Portal hypertension CPT copyright 2016 [employer]. All rights reserved. The codes documented in this report are preliminary and upon knockdown worker review may be revised to meet current compliance requirements. Katherine Kilpatrick PA-C 11/20/2017 3:55:02 PM This report has been signed electronically. Keke Benson, Note Initiated On: 11/20/2017 3:51 PM Number of Addenda: 0 ? [facility] ? [address] [place] [address] [facility] 11/20/2017 3:51 PM CDT Katherine Kilpatrick PA-C GI PROCEDURE OR DERABLES [facility] * LARGE VOLUME PARACENTESIS (11/13/2017 2:20 PM CDT) Report Endoscopy POC Endoscopy Department Report __ _ Patient Name: Sharon Carbajal ?Procedure Date: 11/13/2017 2:20 PM ? Date of : 1965 Classification: Outpatient ?Gender: Female __ _ Providers: ?Katherine Kilpatrick PA-C, Keke Benson Referring MD: ? 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 Throughout the procedure, the patient's ?blood pressure, pulse, and oxygen saturations were ?monitored continuously. The paracentesis was ?accomplished without difficulty. The patient ?tolerated the procedure well. ? Findings: ? Prior to the procedure, the abdomen was examined and demonstrated a ? fluid wave to be present. With the patient in a supine with head ? elevated position, the procedure site was sterilely prepped using ? chloroprep and draped in the usual fashion. 10 mL of 1% lidocaine was ? infiltrated into the skin and subcutaneous tissues. Using a left lower ? quadrant approach, a small stab incision was made with a disposable ? blade and a 5 inch 12 gauge paracentesis needle and cannula system was ? inserted into the peritoneal cavity under ultrasound guidance. ? Aspiration demonstrated no blood and good return of peritoneal fluid. ? One pass was made. The trocar was then removed leaving the catheter in ? place. ? 7 liters of clear, yellow fluid was withdrawn using a vacuum bottle. ? Fluid was sent for cell count and differential and culture and ? sensitivities. Gauze and a Band-Aid were applied. ? 200 mL of 25% Albumin was administered during the course of the ? procedure to treat the patient for prophylactically for potential ? hypotension. ? Estimated Blood Loss: ? Estimated blood loss: none. Complications: ?No immediate complications. Impression: ? - Paracentesis successfully performed. ?- Test results pending. Recommendation: ? - Discharge patient to home (ambulatory). ?- Return to liver clinic as previously scheduled. ?- Repeat paracentesis PRN for therapeutic purposes. ? Attending Participation: ??I was present for the gambino portions of this ?procedure and either I or my colleague was ?immediately available for all non-gambino portions of ?the procedure. ? Procedure Code(s): ? --- Professional --- ? 25075, Abdominal paracentesis (diagnostic or therapeutic); with imaging ? guidance Diagnosis Code(s): ?--- Professional --- ?R18.8, Other ascites ?K74.60, Unspecified cirrhosis of liver ?K76.89, Other specified diseases of liver ?K76.6, Portal hypertension CPT copyright 2016 [employer]. All rights reserved. The codes documented in this report are preliminary and upon knockdown worker review may be revised to meet current compliance requirements. Katherine Kilpatrick PA-C 11/13/2017 2:24:36 PM This report has been signed electronically. Keke Benson, Note Initiated On: 11/13/2017 2:20 PM Number of Addenda: 0 ? [facility] ? [address] [place] [address] [facility] 11/13/2017 2:20 PM CDT Katherine Kilpatrick PA-C GI PROCEDURE OR DERABLES [facility] * LARGE VOLUME PARACENTESIS (11/06/2017 3:51 PM CDT) Report Endoscopy POC Endoscopy Department Report __ _ Patient Name: Sharon Carbajal ?Procedure Date: 11/06/2017 3:51 PM ? Date of : 1965 Classification: Outpatient ?Gender: Female __ _ Providers: ?Katherine Kilpatrick PA-C, Keke Benson Referring : ? 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 Throughout the procedure, the patient's ?blood pressure, pulse, and oxygen saturations were ?monitored continuously. The paracentesis was ?accomplished without difficulty. The patient ?tolerated the procedure well. ? Findings: ? Prior to the procedure, the abdomen was examined and demonstrated ? significant distention with ascites and a fluid wave to be present. With ? the patient in a supine with head elevated position, the procedure site ? was sterilely prepped using chloroprep and draped in the usual fashion. ? 10 mL of 1% lidocaine was infiltrated into the skin and subcutaneous ? tissues. Using a left lower quadrant approach, a small stab incision was ? made with a disposable blade and a 5 inch 12 gauge paracentesis needle ? and cannula system was inserted into the peritoneal cavity under ? ultrasound guidance. Aspiration demonstrated no blood and good return of ? peritoneal fluid. One pass was made. The trocar was then removed leaving ? the catheter in place. ? 7 liters of clear, yellow fluid was withdrawn using a vacuum bottle. ? Fluid was sent for cell count and differential and culture and ? sensitivities. Gauze and a Band-Aid were applied. ? 200 mL of 25% Albumin was administered during the course of the ? procedure to treat the patient for prophylactically for potential ? hypotension. ? Estimated Blood Loss: ? Estimated blood loss: none. Complications: ?No immediate complications. Impression: ? - Paracentesis successfully performed. ?- Test results pending. Recommendation: ? - Discharge patient to home (ambulatory). ?- Return to liver clinic as previously scheduled. ?- Repeat paracentesis PRN for therapeutic purposes. ? Attending Participation: ??I was present for the gambino portions of this ?procedure and either I or my colleague was ?immediately available for all non-gambino portions of ?the procedure. ? Procedure Code(s): ? --- Professional --- ? 12890, Abdominal paracentesis (diagnostic or therapeutic); with imaging ? guidance Diagnosis Code(s): ?--- Professional --- ?R18.8, Other ascites ?K74.60, Unspecified cirrhosis of liver ?K76.89, Other specified diseases of liver ?K76.6, Portal hypertension CPT copyright 2016 [employer]. All rights reserved. The codes documented in this report are preliminary and upon knockdown worker review may be revised to meet current compliance requirements. Katherine Kilpatrick PA-C 11/06/2017 3:55:00 PM This report has been signed electronically. Prabhjotr Kelley, Note Initiated On: 11/06/2017 3:51 PM Number of Addenda: 0 ? [facility] ? [address] [place] [address] [facility] 11/06/2017 3:51 PM CDT Katherine Kilpatrick PA-C GI PROCEDURE OR DERABLES [facility] * LARGE VOLUME PARACENTESIS (10/30/2017 5:30 PM CDT) Report Endoscopy POC Endoscopy Department Report __ _ Patient Name: Sharon Carbajal ?Procedure Date: 10/30/2017 5:30 PM ? Date of : 1965 Classification: Outpatient ?Gender: Female __ _ Providers: ?Katherine Kilpatrick PA-C, Caitlin Dejesus MD Referring MD: ? 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 Throughout the procedure, the patient's ?blood pressure, pulse, and oxygen saturations were ?monitored continuously. The paracentesis was ?accomplished without difficulty. The patient ?tolerated the procedure well. ? Findings: ? Prior to the procedure, the abdomen was examined and demonstrated ? significant distention with ascites and a fluid wave to be present. With ? the patient in a supine with head elevated position, the procedure site ? was sterilely prepped using chloroprep and draped in the usual fashion. ? 10 mL of 1% lidocaine was infiltrated into the skin and subcutaneous ? tissues. Using a left lower quadrant approach, a small stab incision was ? made with a disposable blade and a 5 inch 12 gauge paracentesis needle ? and cannula system was inserted into the peritoneal cavity under ? ultrasound guidance. Aspiration demonstrated no blood and good return of ? peritoneal fluid. One pass was made. The trocar was then removed leaving ? the catheter in place. ? 5.7 liters of clear, yellow fluid was withdrawn using a vacuum bottle. ? Fluid was sent for cell count and differential and culture and ? sensitivities. Gauze and a Band-Aid were applied. ? 150 mL of 25% Albumin was administered during the course of the ? procedure to treat the patient for prophylactically for potential ? hypotension. ? Estimated Blood Loss: ? Estimated blood loss: none. Complications: ?No immediate complications. Impression: ? - Paracentesis successfully performed. ?- Test results pending. Recommendation: ? - Discharge patient to home (ambulatory). ?- Return to liver clinic as previously scheduled. ?- Repeat paracentesis PRN for therapeutic purposes. ? Attending Participation: ??I was present for the gambino portions of this ?procedure and either I or my colleague was ?immediately available for all non-gambino portions of ?the procedure. ? Procedure Code(s): ? --- Professional --- ? 19279, Abdominal paracentesis (diagnostic or therapeutic); with imaging ? guidance Diagnosis Code(s): ?--- Professional --- ?R18.8, Other ascites ?K74.60, Unspecified cirrhosis of liver ?K76.89, Other specified diseases of liver ?K76.6, Portal hypertension CPT copyright 2016 [employer]. All rights reserved. The codes documented in this report are preliminary and upon knockdown worker review may be revised to meet current compliance requirements. Katherine Kilpatrick PA-C 10/30/2017 5:34:31 PM This report has been signed electronically. Caitlin Dejesus MD Note Initiated On: 10/30/2017 5:30 PM Number of Addenda: 0 ? [facility] ? [address] [place] [address] [facility] 10/30/2017 5:30 PM CDT Katherine Kilpatrick PA-C GI PROCEDURE OR DERABLES [facility] * ECHOCARDIOGRAM 2D WITH DOPPLER (10/27/2017 2:14 PM CDT) 10/27/2017 2:14 PM CDT Narrative [facility] - 10/27/2017 5:39 PM CDT [address] [address] Transthoracic Echocardiogram 2D, M-mode, Doppler, and Color Doppler Patient: SHARON CARBAJAL MR number: [id number] Height: 66 in Weight: 179.5 lb BSA: 1.91 m?? Study date: 27-Oct-2017 : 1965 Age: 52 years Gender: Female Race: 2 Allergies: FENTANYL Switchgear Repairer: ??Hermes Steven RDCS Referring Physician: ??Garrett Grissom MD Reading Physician: ??Eddie Branch MD Summary: - ??Clinical question: - ??CIRRHISIS OF LIVER WITH ASCITES - ??History: - ??LUPUS, LIVER DISEASE, DM, FIBROMYLAGIA - ??Left ventricle: - ??Systolic function was normal. Ejection fraction was estimated to be 60 %. - ??There were no regional wall motion abnormalities. - ??Wall thickness was normal. - ??Pericardium: - ??A possible, trivial pericardial effusion was identified. - ??There was a left pleural effusion. Indications: CIRRHISIS OF LIVER WITH ASCITES History: Prior history: LUPUS, LIVER DISEASE, DM, FIBROMYLAGIA Procedure: The procedure was performed in the out-patient area. This was a routine study. The transthoracic approach was used. The study included complete 2D imaging, M-mode, complete spectral Doppler, and color Doppler. Systolic blood pressure was 122 mmHg. Diastolic blood pressure was 52 mmHg. Left ventricle: Size was normal. Systolic function was normal. Ejection fraction was estimated to be 60 %. There were no regional wall motion abnormalities. Wall thickness was normal. Doppler: Left ventricular diastolic function parameters were normal. Aortic valve: The valve was trileaflet. Leaflets exhibited normal thickness and normal cuspal separation. Doppler: Transaortic velocity was within the normal range. There was no stenosis. There was no regurgitation. Aorta: The root exhibited normal size. Mitral valve: Valve structure was normal. Doppler: There was no significant regurgitation. Left atrium: Size was normal. Right ventricle: The size was normal. Systolic function was normal. Wall thickness was normal. Pulmonic valve: Not well visualized. Pulmonary artery: Doppler: Systolic pressure was within the normal range. Tricuspid valve: The valve structure was normal. Doppler: There was no significant regurgitation. Right atrium: Size was normal. Pericardium: A possible, trivial pericardial effusion was identified. There was a left pleural effusion. The pericardium was normal in appearance. System measurement tables 2D Ao Diam: 2.1 cm LVOT Diam: 2 cm LA Diam: 3.9 cm LAAs A2C: 17 cm2 LAAs A4C: 14.9 cm2 LAESV A-L A2C: 46.4 ml LAESV A-L A4C: 40.5 ml LAESV Index (A-L): 24.2 ml/m2 LAESV MOD A2C: 43.4 ml LAESV MOD A4C: 37.9 ml LAESV(A-L): 46.2 ml LALs A2C: 5.3 cm IVSd: 0.9 cm LVIDd: 4.3 cm LVIDs: 3 cm LVPWd: 0.9 cm CW AV VTI: 32.2 cm AV Vmax: 1.7 m/s AV Vmean: 1.2 m/s AV maxP.1 mmHg AV meanP.1 mmHg PV Vmax: 1.3 m/s PV maxP.6 mmHg TR Vmax: 2.2 m/s MM TAPSE: 2.2 cm PW OBEY (VTI): 2.3 cm2 OBEY Vmax: 2.1 cm2 LVOT VTI: 23.8 cm LVOT Vmax: 1.1 m/s LVOT Vmean: 0.8 m/s LVOT maxP.1 mmHg LVOT meanP.8 mmHg MV E/A Ratio: 1.2 MV PHT: 46.2 ms MVA By PHT: 4.8 cm2 LATERAL E': 0.1 m/s LATERAL E/E': 9.8 SEPTAL E': 0.1 m/s SEPTAL E/E': 7.9 Prepared and signed by Eddie Branch MD Signed 27-Oct-2017 17:39:04 Procedure Note Eddie Branch MD - 10/27/[address] [address] Transthoracic Echocardiogram 2D, M-mode, Doppler, and Color Doppler Patient: SHARON CARBAJAL MR number: [id number] Height: 66 in Weight: 179.5 lb BSA: 1.91 m?? Study date: 27-Oct-2017 : 1965 Age: 52 years Gender: Female Race: 2 Allergies: FENTANYL Switchgear Repairer: Hermes Steven RDCS Referring Physician: Garrett Grissom MD Reading Physician: Eddie Branch MD Summary: - Clinical question: - CIRRHISIS OF LIVER WITH ASCITES - History: - LUPUS, LIVER DISEASE, DM, FIBROMYLAGIA - Left ventricle: - Systolic function was normal. Ejection fraction was estimated to be 60 %. - There were no regional wall motion abnormalities. - Wall thickness was normal. - Pericardium: - A possible, trivial pericardial effusion was identified. - There was a left pleural effusion. Indications: CIRRHISIS OF LIVER WITH ASCITES History: Prior history: LUPUS, LIVER DISEASE, DM, FIBROMYLAGIA Procedure: The procedure was performed in the out-patient area. This was a routine study. The transthoracic approach was used. The study included complete 2D imaging, M-mode, complete spectral Doppler, and color Doppler. Systolic blood pressure was 122 mmHg. Diastolic blood pressure was 52 mmHg. Left ventricle: Size was normal. Systolic function was normal. Ejection fraction was estimated to be 60 %. There were no regional wall motion abnormalities. Wall thickness was normal. Doppler: Left ventricular diastolic function parameters were normal. Aortic valve: The valve was trileaflet. Leaflets exhibited normal thickness and normal cuspal separation. Doppler: Transaortic velocity was within the normal range. There was no stenosis. There was no regurgitation. Aorta: The root exhibited normal size. Mitral valve: Valve structure was normal. Doppler: There was no significant regurgitation. Left atrium: Size was normal. Right ventricle: The size was normal. Systolic function was normal. Wall thickness was normal. Pulmonic valve: Not well visualized. Pulmonary artery: Doppler: Systolic pressure was within the normal range. Tricuspid valve: The valve structure was normal. Doppler: There was no significant regurgitation. Right atrium: Size was normal. Pericardium: A possible, trivial pericardial effusion was identified. There was a left pleural effusion. The pericardium was normal in appearance. System measurement tables 2D Ao Diam: 2.1 cm LVOT Diam: 2 cm LA Diam: 3.9 cm LAAs A2C: 17 cm2 LAAs A4C: 14.9 cm2 LAESV A-L A2C: 46.4 ml LAESV A-L A4C: 40.5 ml LAESV Index (A-L): 24.2 ml/m2 LAESV MOD A2C: 43.4 ml LAESV MOD A4C: 37.9 ml LAESV(A-L): 46.2 ml LALs A2C: 5.3 cm IVSd: 0.9 cm LVIDd: 4.3 cm LVIDs: 3 cm LVPWd: 0.9 cm CW AV VTI: 32.2 cm AV Vmax: 1.7 m/s AV Vmean: 1.2 m/s AV maxP.1 mmHg AV meanP.1 mmHg PV Vmax: 1.3 m/s PV maxP.6 mmHg TR Vmax: 2.2 m/s MM TAPSE: 2.2 cm PW OBEY (VTI): 2.3 cm2 OBEY Vmax: 2.1 cm2 LVOT VTI: 23.8 cm LVOT Vmax: 1.1 m/s LVOT Vmean: 0.8 m/s LVOT maxP.1 mmHg LVOT meanP.8 mmHg MV E/A Ratio: 1.2 MV PHT: 46.2 ms MVA By PHT: 4.8 cm2 LATERAL E': 0.1 m/s LATERAL E/E': 9.8 SEPTAL E': 0.1 m/s SEPTAL E/E': 7.9 Prepared and signed by Eddie Branch MD Signed 27-Oct-2017 17:39:04 Garrett Grissom MD ECHO ORDERABLES Performing Organization Address City/State/ZIP Co wy Phone Number [facility] [address] [place] [address] * LARGE VOLUME PARACENTESIS (10/23/2017 2:42 PM CDT) Report Endoscopy POC Endoscopy Department Report _ Patient Name: Sharon Carbajal ?Procedure Date: 10/23/2017 2:42 PM ? Date of : 1965 Classification: Outpatient ?Gender: Female _ Providers: ?Katherine Kilpatrick PA-C, Blake Herring MD Referring MD: ? 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 Throughout the procedure, the patient's ?blood pressure, pulse, and oxygen saturations were ?monitored continuously. The paracentesis was ?accomplished without difficulty. The patient ?tolerated the procedure well. ? Findings: ? Prior to the procedure, the abdomen was examined and demonstrated ? significant distention with ascites and a fluid wave to be present. With ? the patient in a supine with head elevated position, the procedure site ? was sterilely prepped using chloroprep and draped in the usual fashion. ? 10 mL of 1% lidocaine was infiltrated into the skin and subcutaneous ? tissues. Using a left lower quadrant approach, a small stab incision was ? made with a disposable blade and a 5 inch 12 gauge paracentesis needle ? and cannula system was inserted into the peritoneal cavity under ? ultrasound guidance. Aspiration demonstrated no blood and good return of ? peritoneal fluid. One pass was made. The trocar was then removed leaving ? the catheter in place. ? 6.7 liters of clear, yellow fluid was withdrawn using a vacuum bottle. ? Fluid was sent for cell count and differential and culture and ? sensitivities. Gauze and a Band-Aid were applied. ? 150 mL of 25% Albumin was administered during the course of the ? procedure to treat the patient for hypotension. ? Estimated Blood Loss: ? Estimated blood loss: none. Complications: ?No immediate complications. Impression: ? - Paracentesis successfully performed. ?- Test results pending. Recommendation: ? - Discharge patient to home (ambulatory). ?- Return to liver clinic as previously scheduled. ?- Repeat paracentesis PRN for therapeutic purposes. ? Attending Participation: ??I was present for the gambino portions of this ?procedure and either I or my colleague was ?immediately available for all non-gambino portions of ?the procedure. ? Procedure Code(s): ? --- Professional --- ? 67141, Abdominal paracentesis (diagnostic or therapeutic); with imaging ? guidance Diagnosis Code(s): ?--- Professional --- ?R18.8, Other ascites ?K74.60, Unspecified cirrhosis of liver ?K76.89, Other specified diseases of liver ?K76.6, Portal hypertension CPT copyright 2016 [employer]. All rights reserved. The codes documented in this report are preliminary and upon knockdown worker review may be revised to meet current compliance requirements. Katherine Kilpatrick PA-C 10/23/2017 2:45:07 PM This report has been signed electronically. __ Blake Herring MD Note Initiated On: 10/23/2017 2:42 PM Number of Addenda: 0 ? [facility] ? [address] [place] [address] [facility] [employer] 10/23/2017 2:42 PM CDT Katherine Kilpatrick PA-C GI PROCEDURE OR DERABLES [facility] [employer] * LARGE VOLUME PARACENTESIS (10/16/2017 3:29 PM CDT) Report Endoscopy POC Endoscopy Department Report __ _ Patient Name: Sharon Carbajal ?Procedure Date: 10/16/2017 3:29 PM ? Date of : 1965 Classification: Outpatient ?Gender: Female __ _ Providers: ?Katherine Kilpatrick PA-C, Corrine French MD Referring : ? 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 Throughout the procedure, the patient's ?blood pressure, pulse, and oxygen saturations were ?monitored continuously. The paracentesis was ?accomplished without difficulty. The patient ?tolerated the procedure well. ? Findings: ? Prior to the procedure, the abdomen was examined and demonstrated ? moderate distention with ascites and a fluid wave to be present. With ? the patient in a supine with head elevated position, the procedure site ? was sterilely prepped using chloroprep and draped in the usual fashion. ? 10 mL of 1% lidocaine was infiltrated into the skin and subcutaneous ? tissues. Using a left lower quadrant approach, a small stab incision was ? made with a disposable blade and a 5 inch 12 gauge paracentesis needle ? and cannula system was inserted into the peritoneal cavity under ? ultrasound guidance. Aspiration demonstrated no blood and good return of ? peritoneal fluid. One pass was made. The trocar was then removed leaving ? the catheter in place. ? 6.3 liters of clear, yellow fluid was withdrawn using a vacuum bottle. ? Fluid was sent for cell count and differential and culture and ? sensitivities. Gauze and a Band-Aid were applied. ? 150 mL of 25% Albumin was administered during the course of the ? procedure to treat the patient for prophylactically for potential ? hypotension. ? Estimated Blood Loss: ? Estimated blood loss: none. Complications: ?No immediate complications. Impression: ? - Paracentesis successfully performed. ?- Test results pending. Recommendation: ? - Discharge patient to home (ambulatory). ?- Return to liver clinic as previously scheduled. ?- Repeat paracentesis PRN for therapeutic purposes. ? Attending Participation: ??I was present for the gambino portions of this ?procedure and either I or my colleague was ?immediately available for all non-gambino portions of ?the procedure. ? Procedure Code(s): ? --- Professional --- ? 77788, Abdominal paracentesis (diagnostic or therapeutic); with imaging ? guidance Diagnosis Code(s): ?--- Professional --- ?R18.8, Other ascites ?K74.60, Unspecified cirrhosis of liver ?K76.89, Other specified diseases of liver ?K76.6, Portal hypertension CPT copyright 2016 [employer]. All rights reserved. The codes documented in this report are preliminary and upon knockdown worker review may be revised to meet current compliance requirements. Katherine Kilpatrick PA-C 10/16/2017 3:34:38 PM This report has been signed electronically. Corrine French MD Note Initiated On: 10/16/2017 3:29 PM Number of Addenda: 0 ? [facility] ? [address] [place] [address] [facility] [employer] 10/16/2017 3:29 PM CDT Katherine Kilpatrick PA-C GI PROCEDURE OR DERABLES [facility] [employer] * [place] CYSTOURETHROSCOPY (10/15/2017 3:46 PM CDT) Narrative Melissa Headley APRN-CNP - 10/15/2017 3:46 PM CDT Melissa Headley APRN-CNP ? 10/15/2017 ??3:46 PM Cystoscopy: Patient's perineum and genitalia were prepped and draped in the usual sterile fashion. Lidocaine urojet was injected into the urethra and given sufficient time to take effect. A flexible cystoscope was advanced into the bladder. ?? Urethra examined with well coapting sphincter. The bladder was examined: no evidence of urothelial malignancy. Bilateral UO's normal with good efflux. Patient tolerated well. GEORGIE You 10/15/2017 3:39 PM Melissa JACQUES PROCEDURE/MIN OR SURGICAL ORDERABLES * URINALYSIS AUTO - POINT OF CARE (AMB) [facility] (10/14/2017 9:06 AM CDT) Glucose UA neg Bilirubin UA POCT neg Ketones UA POCT neg Specific [place] UA 1.030 Blood Urine POCT neg pH UA 6.0 Protein UA 1+ 0.3 Urobilinogen UA 1+ 35 Nitrite UA neg WBC UA +- 15 Urine URINE / Unknown 10/14/2017 9 :06 AM CDT Melissa [facility] - POINT [facility] F CARE ORDERABLES * LARGE VOLUME PARACENTESIS (10/09/2017 3:21 PM CDT) Report Endoscopy POC Endoscopy Department Report __ _ Patient Name: Sharon Carbajal ?Procedure Date: 10/09/2017 3:21 PM ? Date of : 1965 Classification: Outpatient ?Gender: Female __ _ Providers: ?Katherine Kilpatrick PA-C, Calos Calvert MD Referring MD: ? 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 Throughout the procedure, the patient's ?blood pressure, pulse, and oxygen saturations were ?monitored continuously.The paracentesis was ?accomplished without difficulty. The patient ?tolerated the procedure well. ? Findings: ? Prior to the procedure, the abdomen was examined and demonstrated ? significant distention with ascites. With the patient in a supine with ? head elevated position, the procedure site was sterilely prepped using ? chloroprep and draped in the usual fashion. 10 mL of 1% lidocaine was ? infiltrated into the skin and subcutaneous tissues. Using a left lower ? quadrant approach, a small stab incision was made with a disposable ? blade and a 5 inch 12 gauge paracentesis needle and cannula system was ? inserted into the peritoneal cavity under ultrasound guidance. ? Aspiration demonstrated no blood and good return of peritoneal fluid. ? One pass was made. The trocar was then removed leaving the catheter in ? place. ? 7.5 liters of clear, yellow fluid was withdrawn using a vacuum bottle. ? Fluid was sent for cell count and differential and culture and ? sensitivities. Gauze and a Band-Aid were applied. ? 200 mL of 25% Albumin was administered during the course of the ? procedure to treat the patient for prophylactically for potential ? hypotension. ? Estimated Blood Loss: ? Estimated blood loss: none. Complications: ?No immediate complications. Impression: ? - Paracentesis successfully performed. ?- Test results pending. Recommendation: ? - Discharge patient to home (ambulatory). ?- Return to liver clinic as previously scheduled. ?- Repeat paracentesis PRN for therapeutic purposes. ? Attending Participation: ??I was present for the gambino portions of this ?procedure and either I or my colleague was ?immediately available for all non-gambino portions of ?the procedure. ? Procedure Code(s): ? --- Professional --- ? 10413, Abdominal paracentesis (diagnostic or therapeutic); with imaging ? guidance Diagnosis Code(s): ?--- Professional --- ?R18.8, Other ascites ?K74.60, Unspecified cirrhosis of liver ?K76.6, Portal hypertension ?K76.89, Other specified diseases of liver CPT copyright 2016 [employer]. All rights reserved. The codes documented in this report are preliminary and upon knockdown worker review may be revised to meet current compliance requirements. Katherine Kilpatrick PA-C 10/09/2017 4:33:57 PM This report has been signed electronically. Calos Calvert MD Note Initiated On: 10/09/2017 3:21 PM Number of Addenda: 0 ? [facility] ? [address] [place] [address] [facility] [employer] 10/09/2017 3:21 PM CDT Katherine Kilpatrick PA-C GI PROCEDURE OR DERABLES [facility] [employer] * LARGE VOLUME PARACENTESIS (10/02/2017 2:57 PM CDT) Report Endoscopy POC Endoscopy Department Report __ _ Patient Name: Sharon Carbajal ?Procedure Date: 10/02/2017 2:57 PM ? Date of : 1965 Classification: Outpatient ?Gender: Female __ _ Providers: ?Katherine Kilpatrick PA-C, Calos Calvert MD Referring MD: ? 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 Throughout the procedure, the patient's ?blood pressure, pulse, and oxygen saturations were ?monitored continuously. The paracentesis was ?accomplished without difficulty. The patient ?tolerated the procedure well. ? Findings: ? Prior to the procedure, the abdomen was examined and demonstrated ? significant distention with ascites and a fluid wave to be present. With ? the patient in a supine with head elevated position, the procedure site ? was sterilely prepped using chloroprep and draped in the usual fashion. ? 20 mL of 1% lidocaine was infiltrated into the skin and subcutaneous ? tissues. Using a left lower quadrant approach, a small stab incision was ? made with a disposable blade and a 5 inch 12 gauge paracentesis needle ? and cannula system was inserted into the peritoneal cavity under ? ultrasound guidance. Aspiration demonstrated no blood and good return of ? peritoneal fluid. One pass was made. The trocar was then removed leaving ? the catheter in place. ? 9 liters of clear, yellow fluid was withdrawn using a vacuum bottle. ? Fluid was sent for cell count and differential and culture and ? sensitivities. Gauze and a Band-Aid were applied. ? 250 mL of 25% Albumin was administered during the course of the ? procedure to treat the patient for prophylactically for potential ? hypotension. ? Estimated Blood Loss: ? Estimated blood loss: none. Complications: ?No immediate complications. Impression: ? - Paracentesis successfully performed. ?- Test results pending. Recommendation: ? - Discharge patient to home (ambulatory). ?- Return to liver clinic as previously scheduled. ?- Repeat paracentesis PRN for therapeutic purposes. ? Attending Participation: ??I was present for the gambino portions of this ?procedure and either I or my colleague was ?immediately available for all non-gambino portions of ?the procedure. ? Procedure Code(s): ? --- Professional --- ? 61097, Abdominal paracentesis (diagnostic or therapeutic); with imaging ? guidance Diagnosis Code(s): ?--- Professional --- ?R18.8, Other ascites ?K74.60, Unspecified cirrhosis of liver ?K76.89, Other specified diseases of liver ?K76.6, Portal hypertension CPT copyright 2016 [employer]. All rights reserved. The codes documented in this report are preliminary and upon knockdown worker review may be revised to meet current compliance requirements. Katherine Kilpatrick PA-C 10/02/2017 3:00:10 PM This report has been signed electronically. Calos Calvert MD Note Initiated On: 10/02/2017 2:57 PM Number of Addenda: 0 ? [facility] ? [address] [place] [address] [facility] [employer] 10/02/2017 2:57 PM CDT Katherine Kilpatrick PA-C GI PROCEDURE OR DERABLES [facility] [employer] * LARGE VOLUME PARACENTESIS (09/25/2017 1:48 PM CDT) Report Endoscopy POC Endoscopy Department Report __ _ Patient Name: Sharon Carbajal ?Procedure Date: 09/25/2017 1:48 PM ? Date of : 1965 Classification: Outpatient ?Gender: Female __ _ Providers: ?Katherine Kilpatrick PA-C, Corrine French MD Referring : ? 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 Throughout the procedure, the patient's ?blood pressure, pulse, and oxygen saturations were ?monitored continuously.The paracentesis was ?accomplished without difficulty. The patient ?tolerated the procedure well. ? Findings: ? Prior to the procedure, the abdomen was examined and demonstrated ? significant distention with ascites and a fluid wave to be present. With ? the patient in a supine with head elevated position, the procedure site ? was sterilely prepped using chloroprep and draped in the usual fashion. ? 10 mL of 1% lidocaine was infiltrated into the skin and subcutaneous ? tissues. Using a left lower quadrant approach, a small stab incision was ? made with a disposable blade and a 5 inch 12 gauge paracentesis needle ? and cannula system was inserted into the peritoneal cavity under ? ultrasound guidance. Aspiration demonstrated no blood and good return of ? peritoneal fluid. One pass was made. The trocar was then removed leaving ? the catheter in place. ? 8 liters of clear, yellow fluid was withdrawn using a vacuum bottle. ? Fluid was sent for cell count and differential and culture and ? sensitivities. Gauze and a Band-Aid were applied. ? 200 mL of 25% Albumin was administered during the course of the ? procedure to treat the patient for prophylactically for potential ? hypotension. ? Estimated Blood Loss: ? Estimated blood loss: none. Complications: ?No immediate complications. Impression: ? - Paracentesis successfully performed. ?- Test results pending. Recommendation: ? - Discharge patient to home (ambulatory). ?- Return to liver clinic as previously scheduled. ?- Repeat paracentesis PRN for therapeutic purposes. ? Attending Participation: ??I was present for the gambino portions of this ?procedure and either I or my colleague was ?immediately available for all non-gambino portions of ?the procedure. ? Procedure Code(s): ? --- Professional --- ? 59879, Abdominal paracentesis (diagnostic or therapeutic); with imaging ? guidance Diagnosis Code(s): ?--- Professional --- ?K76.6, Portal hypertension ?K76.89, Other specified diseases of liver ?K74.60, Unspecified cirrhosis of liver ?R18.8, Other ascites CPT copyright 2016 [employer]. All rights reserved. The codes documented in this report are preliminary and upon knockdown worker review may be revised to meet current compliance requirements. Katherine Kilpatrick PA-C 09/25/2017 3:31:16 PM This report has been signed electronically. Corrine French MD Note Initiated On: 09/25/2017 1:48 PM Number of Addenda: 0 ? [facility] ? [address] [place] [address] [facility] [employer] 09/25/2017 1:48 PM CDT Katherine Kilpatrick PA-C GI PROCEDURE OR DERABLES [facility] [employer] * LARGE VOLUME PARACENTESIS (09/18/2017 4:40 PM CDT) Report Endoscopy POC Endoscopy Department Report __ _ Patient Name: Sharon Carbajal ?Procedure Date: 09/18/2017 4:40 PM ? Date of : 1965 Classification: Outpatient ?Gender: Female __ _ Providers: ?Katherine Kilpatrick PA-C, Calos Calvert MD Referring MD: ? 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 Throughout the procedure, the patient's ?blood pressure, pulse, and oxygen saturations were ?monitored continuously. The paracentesis was ?accomplished without difficulty. The patient ?tolerated the procedure well. ? Findings: ? Prior to the procedure, the abdomen was examined and demonstrated ? significant distention with ascites and a fluid wave to be present. With ? the patient in a supine with head elevated position, the procedure site ? was sterilely prepped using chloroprep and draped in the usual fashion. ? 10 mL of 1% lidocaine was infiltrated into the skin and subcutaneous ? tissues. Using a left lower quadrant approach, a small stab incision was ? made with a disposable blade and a 5 inch 12 gauge paracentesis needle ? and cannula system was inserted into the peritoneal cavity under ? ultrasound guidance. Aspiration demonstrated no blood and good return of ? peritoneal fluid. One pass was made. The trocar was then removed leaving ? the catheter in place. ? 8 liters of clear, yellow fluid was withdrawn using a vacuum bottle. ? Fluid was sent for cell count and differential and culture and ? sensitivities. Gauze and a Band-Aid were applied. ? 200 mL of 25% Albumin was administered during the course of the ? procedure to treat the patient for prophylactically for potential ? hypotension. ? Estimated Blood Loss: ? Estimated blood loss: none. Complications: ?No immediate complications. Impression: ? - Paracentesis successfully performed. ?- Test results pending. Recommendation: ? - Discharge patient to home (ambulatory). ?- Return to liver clinic as previously scheduled. ?- Repeat paracentesis PRN for therapeutic purposes. ? Attending Participation: ??I was present for the gambino portions of this ?procedure and either I or my colleague was ?immediately available for all non-gambino portions of ?the procedure. ? Procedure Code(s): ? --- Professional --- ? 69931, Abdominal paracentesis (diagnostic or therapeutic); with imaging ? guidance Diagnosis Code(s): ?--- Professional --- ?R18.8, Other ascites ?K74.60, Unspecified cirrhosis of liver ?K76.89, Other specified diseases of liver ?K76.6, Portal hypertension CPT copyright 2016 [employer]. All rights reserved. The codes documented in this report are preliminary and upon knockdown worker review may be revised to meet current compliance requirements. Katherine Kilpatrick PA-C 09/18/2017 4:45:57 PM This report has been signed electronically. Calos Calvert MD Note Initiated On: 09/18/2017 4:40 PM Number of Addenda: 0 ? [facility] ? [address] [place] [address] [facility] [employer] 09/18/2017 4:40 PM CDT Katherine Kilpatrick PA-C GI PROCEDURE OR DERABLES [facility] [employer] * LARGE VOLUME PARACENTESIS (09/11/2017 12:51 PM CDT) Report Endoscopy POC Endoscopy Department Report __ _ Patient Name: Sharon Carbajal ?Procedure Date: 09/11/2017 12:51 PM ? Date of : 1965 Classification: Outpatient ?Gender: Female __ _ Providers: ?Katherine Kilpatrick PA-C, Calos Calvert MD Referring MD: ? 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 Throughout the procedure, the patient's ?blood pressure, pulse, and oxygen saturations were ?monitored continuously. The paracentesis was ?accomplished without difficulty. The patient ?tolerated the procedure well. ? Findings: ? Prior to the procedure, the abdomen was examined and demonstrated ? moderate distention with ascites and a fluid wave to be present. With ? the patient in a supine with head elevated position, the procedure site ? was sterilely prepped using chloroprep and draped in the usual fashion. ? 10 mL of 1% lidocaine was infiltrated into the skin and subcutaneous ? tissues. Using a left lower quadrant approach, a small stab incision was ? made with a disposable blade and a 5 inch 12 gauge paracentesis needle ? and cannula system was inserted into the peritoneal cavity under ? ultrasound guidance. Aspiration demonstrated no blood and good return of ? peritoneal fluid. One pass was made. The trocar was then removed leaving ? the catheter in place. ? 6.5 liters of clear, yellow fluid was withdrawn using a vacuum bottle. ? Fluid was sent for cell count and differential and culture and ? sensitivities. Gauze and a Band-Aid were applied. ? 200 mL of 25% Albumin was administered during the course of the ? procedure to treat the patient for prophylactically for potential ? hypotension. ? Estimated Blood Loss: ? Estimated blood loss: none. Complications: ?No immediate complications. Impression: ? - Paracentesis successfully performed. ?- Test results pending. Recommendation: ? - Discharge patient to home (ambulatory). ?- Return to liver clinic as previously scheduled. ?- Repeat paracentesis PRN for therapeutic purposes. ? Attending Participation: ??I was present for the gambino portions of this ?procedure and either I or my colleague was ?immediately available for all non-gambino portions of ?the procedure. ? Procedure Code(s): ? --- Professional --- ? 46167, Abdominal paracentesis (diagnostic or therapeutic); with imaging ? guidance Diagnosis Code(s): ?--- Professional --- ?R18.8, Other ascites ?K74.60, Unspecified cirrhosis of liver ?K76.89, Other specified diseases of liver ?K76.6, Portal hypertension CPT copyright 2016 [employer]. All rights reserved. The codes documented in this report are preliminary and upon knockdown worker review may be revised to meet current compliance requirements. Katherine Kilpatrick PA-C 09/11/2017 1:02:43 PM This report has been signed electronically. Calos Calvert MD Note Initiated On: 09/11/2017 12:51 PM Number of Addenda: 0 ? [facility] ? [address] [place] [address] [facility] [employer] 09/11/2017 12:5 1 PM CDT Katherine Kilpatrick PA-C GI PROCEDURE OR DERABLES [facility] [employer] * LARGE VOLUME PARACENTESIS (09/04/2017 12:31 PM CDT) Report Endoscopy POC Endoscopy Department Report __ _ Patient Name: Sharon Carbajal ?Procedure Date: 09/04/2017 12:31 PM ? Date of : 1965 Classification: Outpatient ?Gender: Female __ _ Providers: ?Katherine Kilpatrick PA-C, Calos Calvert MD Referring MD: ? 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 Throughout the procedure, the patient's ?blood pressure, pulse, and oxygen saturations were ?monitored continuously.The paracentesis was ?accomplished without difficulty. The patient ?tolerated the procedure well. ? Findings: ? Prior to the procedure, the abdomen was examined and demonstrated ? significant distention with ascites and a fluid wave to be present. With ? the patient in a supine with head elevated position, the procedure site ? was sterilely prepped using chloroprep and draped in the usual fashion. ? 10 mL of 1% lidocaine was infiltrated into the skin and subcutaneous ? tissues. Using a left lower quadrant approach, a small stab incision was ? made with a disposable blade and a 5 inch 12 gauge paracentesis needle ? and cannula system was inserted into the peritoneal cavity under ? ultrasound guidance. Aspiration demonstrated no blood and good return of ? peritoneal fluid. One pass was made. The trocar was then removed leaving ? the catheter in place. ? 8.3 liters of clear, yellow fluid was withdrawn using a vacuum bottle. ? Fluid was sent for cell count and differential and culture and ? sensitivities. Gauze and a Band-Aid were applied. ? 250 mL of 25% Albumin was administered during the course of the ? procedure to treat the patient for prophylactically for potential ? hypotension. ? Estimated Blood Loss: ? Estimated blood loss: none. Complications: ?No immediate complications. Impression: ? - Paracentesis successfully performed. ?- Test results pending. Recommendation: ? - Discharge patient to home (ambulatory). ?- Return to liver clinic as previously scheduled. ?- Repeat paracentesis PRN for therapeutic purposes. ? Attending Participation: ??I was present for the gambino portions of this ?procedure and either I or my colleague was ?immediately available for all non-gambino portions of ?the procedure. ? Procedure Code(s): ? --- Professional --- ? 68881, Abdominal paracentesis (diagnostic or therapeutic); with imaging ? guidance Diagnosis Code(s): ?--- Professional --- ?R18.8, Other ascites ?K74.60, Unspecified cirrhosis of liver ?K76.89, Other specified diseases of liver ?K76.6, Portal hypertension CPT copyright 2016 [employer]. All rights reserved. The codes documented in this report are preliminary and upon knockdown worker review may be revised to meet current compliance requirements. Katherine Kilpatrick PA-C 09/04/2017 3:52:14 PM This report has been signed electronically. Calos Calvert MD Note Initiated On: 09/04/2017 12:31 PM Number of Addenda: 0 ? [facility] ? [address] [place] [address] [facility] 09/04/2017 12:3 1 PM CDT Katherine Kilpatrick PA-C GI PROCEDURE OR DERABLES [facility] * LARGE VOLUME PARACENTESIS (08/28/2017 11:35 AM CDT) Report Endoscopy POC Endoscopy Department Report __ _ Patient Name: Sharon Carbajal ?Procedure Date: 08/28/2017 11:35 AM ? Date of : 1965 Classification: Outpatient ?Gender: Female __ _ Providers: ?Katherine Kilpatrick PA-C, Calos Calvert MD Referring : ? 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 Throughout the procedure, the patient's ?blood pressure, pulse, and oxygen saturations were ?monitored continuously.The paracentesis was ?accomplished without difficulty. The patient ?tolerated the procedure well. ? Findings: ? Prior to the procedure, the abdomen was examined and demonstrated ? significant distention with ascites and a fluid wave to be present. With ? the patient in a supine with head elevated position, the procedure site ? was sterilely prepped using chloroprep and draped in the usual fashion. ? 10 mL of 1% lidocaine was infiltrated into the skin and subcutaneous ? tissues. Using a left lower quadrant approach, a small stab incision was ? made with a disposable blade and a 5 inch 12 gauge paracentesis needle ? and cannula system was inserted into the peritoneal cavity under ? ultrasound guidance. Aspiration demonstrated no blood and good return of ? peritoneal fluid. One pass was made. The trocar was then removed leaving ? the catheter in place. ? 8.5 liters of cloudy, yellow fluid was withdrawn using a vacuum bottle. ? Fluid was sent for cell count and differential and culture and ? sensitivities. The incision site was closed with exofin. Tegaderm were ? applied. ? 250 mL of 25% Albumin was administered during the course of the ? procedure to treat the patient for prophylactically for potential ? hypotension. ? Estimated Blood Loss: ? Estimated blood loss: none. Complications: ?No immediate complications. Impression: ? - Paracentesis successfully performed. ?- Test results pending. Recommendation: ? - Discharge patient to home (ambulatory). ?- Return to liver clinic as previously scheduled. ?- Repeat paracentesis PRN for therapeutic purposes. ? Attending Participation: ??I was present for the gambino portions of this ?procedure and either I or my colleague was ?immediately available for all non-gambino portions of ?the procedure. ? Procedure Code(s): ? --- Professional --- ? 91808, Abdominal paracentesis (diagnostic or therapeutic); with imaging ? guidance Diagnosis Code(s): ?--- Professional --- ?R18.8, Other ascites ?K74.60, Unspecified cirrhosis of liver ?K76.89, Other specified diseases of liver ?K76.6, Portal hypertension CPT copyright 2016 [employer]. All rights reserved. The codes documented in this report are preliminary and upon knockdown worker review may be revised to meet current compliance requirements. Katherine Kilpatrick PA-C 08/28/2017 3:04:17 PM This report has been signed electronically. Calos Calvert MD Note Initiated On: 08/28/2017 11:35 AM Number of Addenda: 0 ? [facility] ? [address] [place] [address] [facility] 08/28/2017 11:3 5 AM CDT Katherine Kilpatrick PA-C GI PROCEDURE OR DERABLES [facility] * LARGE VOLUME PARACENTESIS (08/21/2017 1:45 PM CDT) Report Endoscopy POC Endoscopy Department Report __ _ Patient Name: Sharon Carbajal ?Procedure Date: 08/21/2017 1:45 PM ? Date of : 1965 Classification: Outpatient ?Gender: Female __ _ Providers: ?Katherine Kilpatrick PA-C, Keke Benson Referring MD: ? 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 Throughout the procedure, the patient's ?blood pressure, pulse, and oxygen saturations were ?monitored continuously. The paracentesis was ?accomplished without difficulty. The patient ?tolerated the procedure well. ? Findings: ? Prior to the procedure, the abdomen was examined and demonstrated ? moderate distention with ascites and a fluid wave to be present. With ? the patient in a supine with head elevated position, the procedure site ? was sterilely prepped using chloroprep and draped in the usual fashion. ? 10 mL of 1% lidocaine was infiltrated into the skin and subcutaneous ? tissues. Using a left lower quadrant approach, a small stab incision was ? made with a disposable blade and a 5 inch 12 gauge paracentesis needle ? and cannula system was inserted into the peritoneal cavity under ? ultrasound guidance. Aspiration demonstrated no blood and good return of ? peritoneal fluid. One pass was made. The trocar was then removed leaving ? the catheter in place. ? 6 liters of clear, yellow fluid was withdrawn using a vacuum bottle. ? Fluid was sent for cell count and differential and culture and ? sensitivities. The incision site was closed with exofin. ? 150 mL of 25% Albumin was administered during the course of the ? procedure to treat the patient for prophylactically for potential ? hypotension. ? Estimated Blood Loss: ? Estimated blood loss: none. Complications: ?No immediate complications. Impression: ? - Paracentesis successfully performed. ?- Test results pending. Recommendation: ? - Discharge patient to home (ambulatory). ?- Return to liver clinic as previously scheduled. ?- Repeat paracentesis PRN for therapeutic purposes. ? Attending Participation: ??I was present for the gambino portions of this ?procedure and either I or my colleague was ?immediately available for all non-gambino portions of ?the procedure. ? Procedure Code(s): ? --- Professional --- ? 53977, Abdominal paracentesis (diagnostic or therapeutic); with imaging ? guidance Diagnosis Code(s): ?--- Professional --- ?R18.8, Other ascites ?K74.60, Unspecified cirrhosis of liver ?K76.89, Other specified diseases of liver ?K76.6, Portal hypertension CPT copyright 2016 [employer]. All rights reserved. The codes documented in this report are preliminary and upon knockdown worker review may be revised to meet current compliance requirements. Katherine Kilpatrick PA-C 08/21/2017 2:13:10 PM This report has been signed electronically. Samer Kelley, Note Initiated On: 08/21/2017 1:45 PM Number of Addenda: 0 ? [facility] ? [address] [place] [address] [facility] 08/21/2017 1:45 PM CDT Katherine Kilpatrick PA-C GI PROCEDURE OR DERABLES [facility] * (ABNORMAL) URINALYSIS (EXTERNAL RESULT ENTRY) (08/18/2017) Pathologist [facility] pH UA (EXTERNAL RESULT) 5 5 - 9 Specific [place] Urine (EXTERNAL RESULT) 1.023 1.001 - 1.035 Protein UA (EXTERNAL RESULT) Negative Negative Blood UA (EXTERNAL RESULT) Negative Negative Nitrite UA (EXTERNAL RESULT) Negative Negative RBC UA (EXTERNAL RESULT) 3-5(A) 0 - 2 /HPF WBC UA (EXTERNAL RESULT) 4-6(A) 0 - 3 /HPF Leukocyte Esterase (EXTERNAL RESULT) Negative Negative Bacteria UA (EXTERNAL RESULT) Urine URINE / Unknown 08/18/2017 Historical Provider LAB - CHEMISTRY O RDERABLES * LIPID PROFILE (EXTERAL RESULT ENTRY) (08/18/2017) Cholesterol (EXTERNAL RESULT) 146 0 - 200 mg/dL Triglycerides (EXTERNAL RESULT) 47 0 - 150 mg/dL HDL (EXTERNAL RESULT) 51 >35 mg/dL LDL (EXTERNAL RESULT) 71 0 - 130 mg/dL VLDL (EXTERNAL RESULT) mg/dL Chol HDL Ratio (External Result) Blood BLOOD SPECIMEN / Unknown 08/18/2017 Historical Provider MD LAB - CHEMISTRY O RDERABLES * HEMOGLOBIN A1C (EXTERNAL RESULT ENTRY) (08/18/2017) Pathologist [facility] Hemoglobin A1c (EXTERNAL RESULT) 5 0 - 5.7 % Blood BLOOD SPECIMEN / Unknown 08/18/2017 Historical Provider MD NHUNG HUSAIN * LARGE VOLUME PARACENTESIS (08/14/2017 2:29 PM CDT) Pathologist [facility] Report Endoscopy POC Endoscopy Department Report __ _ Patient Name: Sharon Carbajal ?Procedure Date: 08/14/2017 2:29 PM ? Date of : 1965 Classification: Outpatient ?Gender: Female __ _ Providers: ?Katherine Kilpatrick PA-C, Selma Flynn MD Referring MD: ? 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 Throughout the procedure, the patient's ?blood pressure, pulse, and oxygen saturations were ?monitored continuously. The paracentesis was ?accomplished without difficulty. The patient ?tolerated the procedure well. ? Findings: ? Prior to the procedure, the abdomen was examined and demonstrated ? significant distention with ascites and a fluid wave to be present. With ? the patient in a supine with head elevated position, the procedure site ? was sterilely prepped using chloroprep and draped in the usual fashion. ? 10 mL of 1% lidocaine was infiltrated into the skin and subcutaneous ? tissues. Using a left lower quadrant approach, a small stab incision was ? made with a disposable blade and a 5 inch 12 gauge paracentesis needle ? and cannula system was inserted into the peritoneal cavity under ? ultrasound guidance. Aspiration demonstrated no blood and good return of ? peritoneal fluid. One pass was made. The trocar was then removed leaving ? the catheter in place. ? 9 liters of clear, yellow fluid was withdrawn using a vacuum bottle. ? Fluid was sent for cell count and differential and culture and ? sensitivities. The incision site was closed with exofin. Tegaderm were ? applied. ? 250 mL of 25% Albumin was administered during the course of the ? procedure to treat the patient for prophylactically for potential ? hypotension. ? Estimated Blood Loss: ? Estimated blood loss: none. Complications: ?No immediate complications. Impression: ? - Paracentesis successfully performed. ?- Test results pending. Recommendation: ? - Discharge patient to home (ambulatory). ?- Return to liver clinic as previously scheduled. ?- Repeat paracentesis PRN for therapeutic purposes. ? Attending Participation: ??I was present for the gambino portions of this ?procedure and either I or my colleague was ?immediately available for all non-gambino portions of ?the procedure. ? Procedure Code(s): ? --- Professional --- ? 24924, Abdominal paracentesis (diagnostic or therapeutic); with imaging ? guidance Diagnosis Code(s): ?--- Professional --- ?R18.8, Other ascites ?K74.60, Unspecified cirrhosis of liver ?K76.89, Other specified diseases of liver ?K76.6, Portal hypertension ?N28.9, Disorder of kidney and ureter, unspecified CPT copyright 2016 [employer]. All rights reserved. The codes documented in this report are preliminary and upon knockdown worker review may be revised to meet current compliance requirements. Katherine Kilpatrick PA-C 08/14/2017 2:37:49 PM This report has been signed electronically. ___ Selma Flynn MD Note Initiated On: 08/14/2017 2:29 PM Number of Addenda: 0 ? [facility] ? [address] [place] [address] [facility] 08/14/2017 2:29 PM CDT Katherine Kilpatrick PA-C GI PROCEDURE OR DERABLES [facility] * LARGE VOLUME PARACENTESIS (08/07/2017 1:47 PM CDT) Report Endoscopy POC Endoscopy Department Report __ _ Patient Name: Sharon Carbajal ?Procedure Date: 08/07/2017 1:47 PM ? Date of : 1965 Classification: Outpatient ?Gender: Female __ _ Providers: ?Katherine Kilpatrick PA-C, Calos Calvert MD Referring MD: ? 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 Throughout the procedure, the patient's ?blood pressure, pulse, and oxygen saturations were ?monitored continuously. The paracentesis was ?accomplished without difficulty. The patient ?tolerated the procedure well. ? Findings: ? Prior to the procedure, the abdomen was examined and demonstrated ? significant distention with ascites and a fluid wave to be present. With ? the patient in a supine with head elevated position, the procedure site ? was sterilely prepped using chloroprep and draped in the usual fashion. ? 10 mL of 1% lidocaine was infiltrated into the skin and subcutaneous ? tissues. Using a left lower quadrant approach, a small stab incision was ? made with a disposable blade and a 5 inch 12 gauge paracentesis needle ? and cannula system was inserted into the peritoneal cavity under ? ultrasound guidance. Aspiration demonstrated no blood and good return of ? peritoneal fluid. One pass was made. The trocar was then removed leaving ? the catheter in place. ? 11 liters of clear, yellow fluid was withdrawn using a vacuum bottle. ? Fluid was sent for cell count and differential and culture and ? sensitivities. Gauze and a Band-Aid were applied. ? 300 mL of 25% Albumin was administered during the course of the ? procedure to treat the patient for prophylactically for potential ? hypotension. ? Estimated Blood Loss: ? Estimated blood loss: none. Complications: ?No immediate complications. Impression: ? - Paracentesis successfully performed. ?- Test results pending. Recommendation: ? - Discharge patient to home (ambulatory). ?- Return to liver clinic as previously scheduled. ?- Repeat paracentesis PRN for therapeutic purposes. ? Attending Participation: ??I was present for the gambino portions of this ?procedure and either I or my colleague was ?immediately available for all non-gambino portions of ?the procedure. ? Procedure Code(s): ? --- Professional --- ? 65648, Abdominal paracentesis (diagnostic or therapeutic); with imaging ? guidance Diagnosis Code(s): ?--- Professional --- ?R18.8, Other ascites ?K74.60, Unspecified cirrhosis of liver ?K76.89, Other specified diseases of liver ?K76.6, Portal hypertension ?N28.9, Disorder of kidney and ureter, unspecified CPT copyright 2016 [employer]. All rights reserved. The codes documented in this report are preliminary and upon knockdown worker review may be revised to meet current compliance requirements. Katherine Kilpatrick PA-C 08/07/2017 1:51:02 PM This report has been signed electronically. Calos Calvert MD Note Initiated On: 08/07/2017 1:47 PM Number of Addenda: 0 ? [facility] ? [address] [place] [address] [facility] 08/07/2017 1:47 PM CDT Katherine Kilpatrick PA-C GI PROCEDURE OR DERABLES [facility] * LARGE VOLUME PARACENTESIS (07/31/2017 2:12 PM CDT) Report Endoscopy POC Endoscopy Department Report __ _ Patient Name: Sharon Carbajal ?Procedure Date: 07/31/2017 2:12 PM ? Date of : 1965 Classification: Outpatient ?Gender: Female __ _ Providers: ?Katherine Kilpatrick PA-C, Blake Herring MD Referring MD: ? 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 Throughout the procedure, the patient's ?blood pressure, pulse, and oxygen saturations were ?monitored continuously.The paracentesis was ?accomplished without difficulty. The patient ?tolerated the procedure well. ? Findings: ? Prior to the procedure, the abdomen was examined and demonstrated ? significant distention with ascites and a fluid wave to be present. With ? the patient in a supine with head elevated position, the procedure site ? was sterilely prepped using chloroprep and draped in the usual fashion. ? 10 mL of 1% lidocaine was infiltrated into the skin and subcutaneous ? tissues. Using a left lower quadrant approach, a small stab incision was ? made with a disposable blade and a 5 inch 12 gauge paracentesis needle ? and cannula system was inserted into the peritoneal cavity under ? ultrasound guidance. Aspiration demonstrated no blood and good return of ? peritoneal fluid. One pass was made. The trocar was then removed leaving ? the catheter in place. ? 10.5 liters of clear, yellow fluid was withdrawn using a vacuum bottle. ? Fluid was sent for cell count and differential and culture and ? sensitivities. Gauze and a Band-Aid were applied. ? 75 grams of 25% Albumin was administered during the course of the ? procedure to treat the patient for prophylactically for potential ? hypotension. ? Estimated Blood Loss: ? Estimated blood loss: none. Complications: ?No immediate complications. Impression: ? - Paracentesis successfully performed. ?- Test results pending. Recommendation: ? - Discharge patient to home (ambulatory). ?- Return to liver clinic as previously scheduled. ?- Repeat paracentesis PRN for therapeutic purposes. ? Attending Participation: ??I was present for the gambino portions of this ?procedure and either I or my colleague was ?immediately available for all non-gambino portions of ?the procedure. ? Procedure Code(s): ? --- Professional --- ? 42274, Abdominal paracentesis (diagnostic or therapeutic); with imaging ? guidance Diagnosis Code(s): ?--- Professional --- ?R18.8, Other ascites ?K74.60, Unspecified cirrhosis of liver ?K76.89, Other specified diseases of liver ?K76.6, Portal hypertension CPT copyright 2016 [employer]. All rights reserved. The codes documented in this report are preliminary and upon knockdown worker review may be revised to meet current compliance requirements. Katherine Kilpatrick PA-C 07/31/2017 4:43:32 PM This report has been signed electronically. Blake Herring MD Note Initiated On: 07/31/2017 2:12 PM Number of Addenda: 0 ? [facility] ? [address] [place] [address] [facility] 07/31/2017 2:12 PM CDT Katherine Kilpatrick PA-C GI PROCEDURE OR DERABLES [facility] * LARGE VOLUME PARACENTESIS (07/24/2017 11:59 AM CDT) Report Endoscopy POC Endoscopy Department Report __ _ Patient Name: Sharon Carbajal ?Procedure Date: 07/24/2017 11:59 AM ? Date of : 1965 Classification: Outpatient ?Gender: Female __ _ Providers: ?Katherine Kilpatrick PA-C, Calos Calvert MD Referring MD: ? 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 Throughout the procedure, the patient's ?blood pressure, pulse, and oxygen saturations were ?monitored continuously. The paracentesis was ?accomplished without difficulty. The patient ?tolerated the procedure well. ? Findings: ? Prior to the procedure, the abdomen was examined and demonstrated ? significant distention with ascites and a fluid wave to be present. With ? the patient in a supine with head elevated position, the procedure site ? was sterilely prepped using chloroprep and draped in the usual fashion. ? 10 mL of 1% lidocaine was infiltrated into the skin and subcutaneous ? tissues. Using a left lower quadrant approach, a small stab incision was ? made with a disposable blade and a 5 inch 12 gauge paracentesis needle ? and cannula system was inserted into the peritoneal cavity under ? ultrasound guidance. Aspiration demonstrated no blood and good return of ? peritoneal fluid. One pass was made. The trocar was then removed leaving ? the catheter in place. ? 13 liters of clear, yellow fluid was withdrawn using a vacuum bottle. ? Fluid was sent for cell count and differential and culture and ? sensitivities. Fluid was sent for cell count and differential and ? culture and sensitivities. Gauze and a Band-Aid were applied. ? 87.5 grams of 25% Albumin was administered during the course of the ? procedure to treat the patient for prophylactically for potential ? hypotension. ? Estimated Blood Loss: ? Estimated blood loss: none. Complications: ?No immediate complications. Impression: ? - Paracentesis successfully performed. ?- Test results pending. Recommendation: ? - Discharge patient to home (ambulatory). ?- Return to liver clinic as previously scheduled. ?- Repeat paracentesis PRN for therapeutic purposes. ? Attending Participation: ??I was present for the gambino portions of this ?procedure and either I or my colleague was ?immediately available for all non-gambino portions of ?the procedure. ? Procedure Code(s): ? --- Professional --- ? 75537, Abdominal paracentesis (diagnostic or therapeutic); with imaging ? guidance Diagnosis Code(s): ?--- Professional --- ?R18.8, Other ascites ?K74.60, Unspecified cirrhosis of liver ?K76.89, Other specified diseases of liver ?K76.6, Portal hypertension CPT copyright 2016 [employer]. All rights reserved. The codes documented in this report are preliminary and upon knockdown worker review may be revised to meet current compliance requirements. Katherine Kilpatrick PA-C 07/24/2017 12:24:19 PM This report has been signed electronically. Calos Calvert MD Note Initiated On: 07/24/2017 11:59 AM Number of Addenda: 0 ? [facility] ? [address] [place] [address] [facility] 07/24/2017 11:5 9 AM CDT Katherine Kilpatrick PA-C GI PROCEDURE OR DERABLES Performing Organization Address City/[facility]/ZIP Co de Phone Number [facility] * TISSUE TRANSGLUTAMINASE AB IGA (07/24/2017 11:11 AM CDT) TTG Antibody IgA 2 0 - 3 U/mL 07/25/2017 4:21 PM CDT [facility] ([facility]) Comment: ?Negative ?0 - ??3 ?Weak Positive ?? 4 - 10 ?Positive ? >10 Tissue Transglutaminase (tTG) has been identified as the endomysial antigen. ??Studies have demonstr- ated that endomysial IgA antibodies have over 99% specificity for gluten sensitive enteropathy. Blood BLOOD SPECIMEN / Unknown Venipuncture / Unknown 07/24/2017 11:11 AM CDT 07/24/2017 11:24 AM CDT Narrative [facility] ([facility]) - 07/25/2017 4:21 PM CDT Performed at: ??01 - [facility] [address] [place], [place] ??[id number] Runner On: Perez Chavis PhD, Phone: ??[phone] Katherine Kilpatrick PA-C LAB - SEROLOGY ORDERABLES Performing Organization Address City/[facility]/ZIP Co de Phone Number [facility] ([facility]) [address] [place] [address] * LARGE VOLUME PARACENTESIS (07/17/2017 2:00 PM CDT) Report Endoscopy POC Endoscopy Department Report __ _ Patient Name: Sharon Carbajal ?Procedure Date: 07/17/2017 2:00 PM ? Date of : 1965 Classification: Outpatient ?Gender: Female __ _ Providers: ?Katherine Kilpatrick PA-C, Keke Benson Referring MD: ? 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 Throughout the procedure, the patient's ?blood pressure, pulse, and oxygen saturations were ?monitored continuously.The paracentesis was ?accomplished without difficulty. The patient ?tolerated the procedure well. ? Findings: ? Prior to the procedure, the abdomen was examined and demonstrated ? significant distention with ascites and a fluid wave to be present. With ? the patient in a supine with head elevated position, the procedure site ? was sterilely prepped using chloroprep and draped in the usual fashion. ? 10 mL of 1% lidocaine was infiltrated into the skin and subcutaneous ? tissues. Using a left lower quadrant approach, a small stab incision was ? made with a disposable blade and a 5 inch 12 gauge paracentesis needle ? and cannula system was inserted into the peritoneal cavity under ? ultrasound guidance. Aspiration demonstrated no blood and good return of ? peritoneal fluid. One pass was made. The trocar was then removed leaving ? the catheter in place. ? 12.5 liters of clear, yellow fluid was withdrawn using a vacuum bottle. ? Fluid was sent for cell count and differential and culture and ? sensitivities. Gauze and a Band-Aid were applied. ? 87.5 grams of 25% Albumin was administered during the course of the ? procedure to treat the patient for prophylactically for potential ? hypotension. ? Estimated Blood Loss: ? Estimated blood loss: none. Impression: ? - Paracentesis successfully performed. ?- Test results pending. Recommendation: ? - Discharge patient to home (ambulatory). ?- Return to liver clinic as previously scheduled. ?- Repeat paracentesis PRN for therapeutic purposes. ? Attending Participation: ??I was present for the gambino portions of this ?procedure and either I or my colleague was ?immediately available for all non-gambino portions of ?the procedure. ? Procedure Code(s): ? --- Professional --- ? 85793, Abdominal paracentesis (diagnostic or therapeutic); with imaging ? guidance Diagnosis Code(s): ?--- Professional --- ?R18.8, Other ascites ?K74.60, Unspecified cirrhosis of liver ?K76.89, Other specified diseases of liver ?K76.6, Portal hypertension CPT copyright 2016 [employer]. All rights reserved. The codes documented in this report are preliminary and upon knockdown worker review may be revised to meet current compliance requirements. Katherine Kilpatrick PA-C 07/17/2017 4:01:48 PM This report has been signed electronically. Prabhjotr Kelley, Note Initiated On: 07/17/2017 2:00 PM Number of Addenda: 0 ? [facility] ? [address] [place] [address] [facility] 07/17/2017 2:00 PM CDT Katherine Kilpatrick PA-C GI PROCEDURE OR DERABLES [facility] * EGD (06/30/2017 2:47 PM CDT) Report Endoscopy POC Endoscopy Department Report _ Patient Name: Sharon Carbajal ?Procedure Date: 06/30/2017 2:47 PM ? Date of : 1965 Classification: Outpatient ?Gender: Female _ Providers: ?Roxane Rowell MD: ? 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 Throughout the ?procedure, the patient's blood pressure, pulse, and ?oxygen saturations were monitored continuously. The ?[id number]-[id number] was introduced through the mouth, and ?advanced to the second part of duodenum. The upper ?GI endoscopy was accomplished without difficulty. ?The patient tolerated the procedure well. ? Findings: ? Esophagogastric landmarks were identified: the Z-line was found at 36 ? cm, the upper extent of the gastric folds was found at 36 cm and the ? site of hiatal narrowing was found at 36 cm from the incisors. ? The examined esophagus was normal. No esophageal varices seen. ? Patchy moderately erythematous mucosa without bleeding was found in the ? gastric body and in the gastric antrum. No significant portal ? hypertensive gastropathy. ? Localized moderately scalloped mucosa was found in the second portion of ? the duodenum. Biopsies for histology were taken with a cold forceps for ? evaluation of celiac disease. ? Estimated Blood Loss: ? Estimated blood loss was minimal. Complications: ?No immediate complications. Impression: ? - Esophagogastric landmarks identified. ?- Normal esophagus. ?- Erythematous mucosa in the gastric body and ?antrum. ?- Scalloped mucosa was found in the duodenum, rule ?out celiac disease. Biopsied. Recommendation: ? - Patient has a contact number available for ?emergencies. The signs and symptoms of potential ?delayed complications were discussed with the ?patient. Return to normal activities tomorrow. ?Written discharge instructions were provided to the ?patient. ?- Resume previous diet. ?- Continue present medications. ?- Await pathology results. ? Attending Participation: ??I personally performed the entire procedure. ? Procedure Code(s): ? --- Professional --- ? 88518, Esophagogastroduod enoscopy, flexible, transoral; with biopsy, ? single or multiple Diagnosis Code(s): ?--- Professional --- ?K31.89, Other diseases of stomach and duodenum ?D50.0, Iron deficiency anemia secondary to blood ?loss (chronic) CPT copyright 2016 [employer]. All rights reserved. The codes documented in this report are preliminary and upon knockdown worker review may be revised to meet current compliance requirements. Roxane Anaya, 06/30/2017 3:05:24 PM Note Initiated On: 06/30/2017 2:47 PM Number of Addenda: 0 ? [facility] ? [address] [place] [address] [facility] 06/30/2017 2:47 PM CDT Roxane Anaya MD GI PROCEDURE ORDERAB LES [facility] * LARGE VOLUME PARACENTESIS (06/30/2017 2:04 PM CDT) Report Endoscopy POC Endoscopy Department Report __ _ Patient Name: Sharon Carbajal ?Procedure Date: 06/30/2017 2:04 PM ? Date of : 1965 Classification: Outpatient ?Gender: Female __ _ Providers: ?Katherine Kilpatrick PA-C, Corrine French MD Referring : ? 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 Throughout the procedure, the patient's ?blood pressure, pulse, and oxygen saturations were ?monitored continuously. The paracentesis was ?accomplished without difficulty. The patient ?tolerated the procedure well. ? Findings: ? Prior to the procedure, the abdomen was examined and demonstrated ? significant distention with ascites and a fluid wave to be present. With ? the patient in a supine with head elevated position, the procedure site ? was sterilely prepped using chloroprep and draped in the usual fashion. ? 10 mL of 1% lidocaine was infiltrated into the skin and subcutaneous ? tissues. Using a left lower quadrant approach, a small stab incision was ? made with a disposable blade and a 5 inch 12 gauge paracentesis needle ? and cannula system was inserted into the peritoneal cavity under ? ultrasound guidance. Aspiration demonstrated no blood and good return of ? peritoneal fluid. One pass was made. The trocar was then removed leaving ? the catheter in place. ? 11 liters of clear, yellow fluid was withdrawn using a vacuum bottle. ? Fluid was sent for cell count and differential and culture and ? sensitivities. The incision site was closed with exofin. Gauze and a ? Band-Aid were applied. ? 87.5 grams of 25% Albumin was administered during the course of the ? procedure to treat the patient for prophylactically for potential ? hypotension. ? Estimated Blood Loss: ? Estimated blood loss: none. Complications: ?No immediate complications. Impression: ? - Paracentesis successfully performed. ?- Test results pending. Recommendation: ? - Transfer patient to main endoscopy unit for next ?regularly scheduled procedure. ?- Return to liver clinic as previously scheduled. ?- Repeat paracentesis PRN for therapeutic purposes. ? Attending Participation: ??I was present for the gambino portions of this ?procedure and either I or my colleague was ?immediately available for all non-gambino portions of ?the procedure. ? Procedure Code(s): ? --- Professional --- ? 08746, Abdominal paracentesis (diagnostic or therapeutic); with imaging ? guidance Diagnosis Code(s): ?--- Professional --- ?R18.8, Other ascites ?K74.60, Unspecified cirrhosis of liver ?K76.89, Other specified diseases of liver ?K76.6, Portal hypertension ?N28.9, Disorder of kidney and ureter, unspecified CPT copyright 2016 [employer]. All rights reserved. The codes documented in this report are preliminary and upon knockdown worker review may be revised to meet current compliance requirements. Katherine Kilpatrick PA-C 06/30/2017 2:08:03 PM This report has been signed electronically. Corrine French MD Note Initiated On: 06/30/2017 2:04 PM Number of Addenda: 0 ? [facility] ? [address] [facility] [address] [facility] 06/30/2017 2:04 PM CDT Katherine Kilptarick PA-C GI PROCEDURE OR DERABLES [facility] * LARGE VOLUME PARACENTESIS (06/19/2017 3:08 PM CDT) Report Endoscopy POC Endoscopy Department Report __ _ Patient Name: Sharon Carbajal ?Procedure Date: 06/19/2017 3:08 PM ? Date of : 1965 Classification: Outpatient ?Gender: Female __ _ Providers: ?Katherine Kilpatrick PA-C, Keke Benson Referring MD: ? 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 Throughout the procedure, the patient's ?blood pressure, pulse, and oxygen saturations were ?monitored continuously.The paracentesis was ?accomplished without difficulty. The patient ?tolerated the procedure well. ? Findings: ? Prior to the procedure, the abdomen was examined and demonstrated ? significant distention with ascites and a fluid wave to be present. With ? the patient in a supine with head elevated position, the procedure site ? was sterilely prepped using chloroprep and draped in the usual fashion. ? 10 mL of 1% lidocaine was infiltrated into the skin and subcutaneous ? tissues. Using a left lower quadrant approach, a small stab incision was ? made with a disposable blade and a 5 inch 12 gauge paracentesis needle ? and cannula system was inserted into the peritoneal cavity under ? ultrasound guidance. Aspiration demonstrated no blood and good return of ? peritoneal fluid. One pass was made. The trocar was then removed leaving ? the catheter in place. ? 13 liters of clear, yellow, blood-tinged fluid was withdrawn using a ? vacuum bottle. Fluid was sent for cell count and differential and ? culture and sensitivities. Gauze and a Band-Aid were applied. ? 87.5 grams of 25% Albumin was administered during the course of the ? procedure to treat the patient for prophylactically for potential ? hypotension. ? Estimated Blood Loss: ? Estimated blood loss: none. Complications: ?No immediate complications. Impression: ? - Paracentesis successfully performed. ?- Test results pending. Recommendation: ? - Discharge patient to home (ambulatory). ?- Return to liver clinic as previously scheduled. ?- Repeat paracentesis PRN for therapeutic purposes. ? Attending Participation: ??I was present for the gambino portions of this ?procedure and either I or my colleague was ?immediately available for all non-gambino portions of ?the procedure. ? Procedure Code(s): ? --- Professional --- ? 18326, Abdominal paracentesis (diagnostic or therapeutic); with imaging ? guidance Diagnosis Code(s): ?--- Professional --- ?R18.8, Other ascites ?K74.60, Unspecified cirrhosis of liver ?K76.89, Other specified diseases of liver ?K76.6, Portal hypertension CPT copyright 2016 [employer]. All rights reserved. The codes documented in this report are preliminary and upon knockdown worker review may be revised to meet current compliance requirements. Katherine Kilpatrick PA-C 06/19/2017 3:53:30 PM This report has been signed electronically. Prabhjotr Kelley, Note Initiated On: 06/19/2017 3:08 PM Number of Addenda: 0 ? [facility] ? [address] [place] [address] [facility] 06/19/2017 3:08 PM CDT Katherine Kilpatrick PA-C GI PROCEDURE OR DERABLES Performing Organization Address City/State/[facility] Co de Phone Number [facility] * (ABNORMAL) CELL COUNT FLUID (05/22/2017 12:02 PM CDT) Only the most recent of23 resultswithin the time period is included. Color Fluid Yellow(A) Colorless, Straw [facility] Clarity Fluid Clear Clear [facility] Volume Fluid 2.0 mL [facility] WBC Fluid 153 Reference Range Not Established /uL [facility] RBC Fluid 1,000 Reference Range Not Established /uL [facility] Differential Manual Differential to follow. [facility] Peritoneal dialysis fluid specimen (specimen) (Ascities) 05/22/2017 12:02 PM CDT 05/22/2017 12:35 PM CDT Narrative [facility] - 05/22/2017 1:00 PM CDT No established reference ranges for WBC and RBC body fluid count. Katherine Kilpatrick PA-C LAB - BODY FLUI D ORDERABLES Performing Organization Address City/[facility]/ZIP Co de Phone Number [address] [phone] * CULTURE AEROBIC (05/22/2017 12:02 PM CDT) Only the most recent of23 resultswithin the time period is included. Culture Aerobic No Growth [facility] Gram Stain [facility] Comment:Bottles only Abdominal Fluid BODY FLUID SPECIMEN / Unknown 05/22/2017 12:02 PM CDT 05/22/2017 12:35 PM CDT Narrative [facility] - 05/27/2017 11:28 AM CDT No gram stain Specimen Type->Abdominal fluid Resulting Lab: ?? [facility] [address] [place] [address] PH: [phone] Katherine Kilpatrick PA-C LAB - MICROBIOL OGY ORDERABLES Performing Organization Address City/[facility]/[place] [address], [facility] [phone] * CULTURE ANAEROBE (05/22/2017 12:02 PM CDT) Only the most recent of23 resultswithin the time period is included. Culture Anaerobic No Growth Anaerobes. [facility] Abdominal Fluid BODY FLUID SPECIMEN / Unknown 05/22/2017 12:02 PM CDT 05/22/2017 12:35 PM CDT Narrative [facility] - 05/28/2017 6:08 AM CDT No gram stain Specimen Type->Abdominal fluid Resulting Lab: ?? [facility] [address] [place] [address] PH: [phone] Katherine Kilpatrick PA-C LAB - MICROBIOL OGY ORDERABLES Performing Organization Address [facility]/ZIP Co de Phone Number [address] [phone] * CREATININE BLOOD - POCT (IP) [facility] (03/20/2017) Creatinine POCT 0.86 0.3 - 1.3 mg/dL [facility] eGFR POCT 60 60 ml/min [facility] 03/20/2017 Gonzales Ramon MD LAB - POINT OF CARE ORDERABLES Performing Organization Address [facility]/ZIP Co de Phone Number [address] * IR VENOGRAM PROCEDURAL CODE (10/04/2016 1:20 PM CDT) Anatomical Region Laterality Modality Other Impressions 10/04/2016 5:54 PM CDT Impression: 1. ??Hepatic venogram with pressure measurements. The portal pressure is 36-38 mmHg, the hepatic venous pressure gradient is 21-23 mmHg, and the portosystemic pressure gradient is 26-28 mmHg. 2. ??Successful transjugular liver biopsy under fluoroscopic guidance. The pathology report is pending at the time of this dictation. 3. ??Successful ultrasound-guided paracentesis with drainage of 7000 mL of straw-colored fluid. Dr. Henderson performed/was present throughout the procedure and provided the moderate sedation service. Please see the nursing sedation flowsheet. This report was approved ??by Vy Garner M.D. ?? on 10/04/2016 1:48 PM . I, Dr. EFRAÍN HENDERSON M.D. have personally reviewed and interpreted this examination/study. This report was electronically signed by EFRAÍN HENDERSON M.D. ??on 10/04/2016 5:54 PM . Narrative 10/04/2016 5:54 PM CDT History: 51-year-old female with hepatic cirrhosis and ascites. Autoimmune hepatitis is suspected. Interventional Radiology consulted for image guided transjugular liver biopsy. For safe access of TJLB and decrease radiation, it was decided to perform paracentesis prior to TJLB. Operators: 1. ??Dr. Henderson, Attending Physician 2. ??Dr. Garner, IR Fellow Anesthesia: 1. ??Local anesthesia - 20 mL of 1% lidocaine 2. ??Intravenous conscious sedation - Versed 1 mg and Dilaudid 2 mg Procedure: 1. ??Limited ultrasound evaluation of the abdomen. 2. ??Ultrasound-guided paracentesis. 3. ??Ultrasound-guided access of the right internal jugular vein. 4. ??Hepatic venogram with pressure measurement. 5. ??Transcatheter biopsy of the liver under fluoroscopic guidance. Start time: 1210 ?End time: 1319 ? Sedation initiated time: 1211 Fluoroscopic time: 24.3 minutes ?Contrast: 10 mL of Omnipaque 240 Procedure in detail: The procedure, risks and possible complications were explained to the patient in detail, and informed consent was obtained. The patient was placed supine on the angiographic table. The patient received intravenous Versed and Dilaudid for conscious sedation. A qualified radiology nurse monitored the patient?s vital signs throughout the procedure. Given the patient's abdominal distention, limited ultrasound evaluation of the abdomen was performed which revealed large volume ascites. The decision was made to perform paracentesis prior to the transjugular liver biopsy to decrease the risk of bleeding. A percutaneous entry site was marked on the skin to access the right mid abdomen laterally. The marked site and skin around the region of interest were prepped and draped in sterile fashion. Local anesthesia was provided with 1% Lidocaine. Using ultrasound guidance, a 5-Turkmen One-Step Centesis coaxial needle system was advanced into the peritoneal cavity. The needle entry was documented. Upon fluid return, the outer sheath was advanced over the needle into the peritoneal cavity and the needle was removed. The sheath was then connected to wall suction and?approximately 7000 mL of straw-colored fluid was drained. The patient received an appropriate amount of intravenous albumin replacement. The sheath was then removed, and sterile dressing was applied. The right neck was prepped and draped in the usual sterile manner. Limited ultrasound of right internal jugular vein demonstrated patency and compressibility. A ty scale image was documented. After instillation of 1% Lidocaine, a small skin incision was made in the right lower neck. Under real time ultrasound guidance, the right internal jugular vein was accessed using a micro-puncture needle. The needle entry was documented. After series of exchanges, a 10 Turkmen vascular sheath was placed. Using a 5 Turkmen MPA catheter, the right hepatic vein was catheterized, and a venogram was obtained. The venogram showed a normal right hepatic vein. The pressures were measured as follows: Free hepatic: 15 mmHg Wedged hepatic (portal): 36-38 mmHg Inferior vena cava: 14 mmHg Right atrium: 10 mmHg Hepatic venous pressure gradient (wedged hepatic - free hepatic): 21-23 mmHg Portosystemic pressure gradient (wedged hepatic - right atrial): 26-28 mmHg A stiffer 0.035 wire was placed in the right hepatic vein. Using a Outbox transjugular biopsy set, 3 core samples were obtained. Samples were given to the pathology service. The post-biopsy venogram was unremarkable. The sheath was removed, and hemostasis was achieved with manual compression. A sterile dressing was applied. The patient tolerated the procedure well and was transferred to the holding area in stable condition. There were no immediate complications associated with the procedure. Procedure Note Efraín Henderson MD - 05/30/2017 History: 51-year-old female with hepatic cirrhosis and ascites. Autoimmunehepatitis is suspected. Interventional Radiology consulted for imageguided transjugular liver biopsy. For safe access of TJLB and decreaseradiation, it was decided to perform paracentesis prior to TJLB. Operators: 1. Dr. Henderson, Attending Physician 2. Dr. Garner, IR Fellow Anesthesia: 1. Local anesthesia - 20 mL of 1% lidocaine 2. Intravenous conscious sedation - Versed 1 mg and Dilaudid 2 mg Procedure: 1. Limited ultrasound evaluation of the abdomen. 2. Ultrasound-guided paracentesis. 3. Ultrasound-guided access of the right internal jugular vein. 4. Hepatic venogram with pressure measurement. 5. Transcatheter biopsy of the liver under fluoroscopic guidance. Start time: 1210 End time: 1319 Sedation initiated time: 1211 Fluoroscopic time: 24.3 minutes Contrast: 10 mL of Omnipaque 240 Procedure in detail: The procedure, risks and possible complications wereexplained to the patient in detail, and informed consent was obtained. Thepatient was placed supine on the angiographic table. The patient received intravenous Versed and Dilaudid for conscioussedation. A qualified radiology nurse monitored the patient?s vital signsthroughout the procedure. Given the patient's abdominal distention, limited ultrasound evaluation ofthe abdomen was performed which revealed large volume ascites. Thedecision was made to perform paracentesis prior to the transjugular liverbiopsy to decrease the risk of bleeding. A percutaneous entry site was marked on the skin to access theright mid abdomen laterally. The marked site and skin around the region ofinterest were prepped and draped in sterile fashion. Local anesthesia wasprovided with 1% Lidocaine. Using ultrasound guidance, a 5-Turkmen One-Step Centesis coaxial needlesystem was advanced into the peritoneal cavity. The needle entry wasdocumented. Upon fluid return, the outer sheath was advanced over theneedle into the peritoneal cavity and the needle was removed. The sheath was then connected to wall suctionand?approximately 7000 mL of straw-colored fluid was drained. The patientreceived an appropriate amount of intravenous albumin replacement. Thesheath was then removed, and sterile dressing was applied. The right neck was prepped and draped in the usual sterile manner. Limitedultrasound of right internal jugular vein demonstrated patency andcompressibility. A ty scale image was documented. After instillation of1% Lidocaine, a small skin incision was made in the right lower neck. Under real time ultrasound guidance, theright internal jugular vein was accessed using a micro-puncture needle.The needle entry was documented. After series of exchanges, a 10 Frenchvascular sheath was placed. Using a 5 Turkmen MPA catheter, the right hepatic vein was catheterized,and a venogram was obtained. The venogram showed a normal right hepaticvein. The pressures were measured as follows: Free hepatic: 15 mmHg Wedged hepatic (portal): 36-38 mmHg Inferior vena cava: 14 mmHg Right atrium: 10 mmHg Hepatic venous pressure gradient (wedged hepatic - free hepatic): 21-23mmHg Portosystemic pressure gradient (wedged hepatic - right atrial): 26-28mmHg A stiffer 0.035 wire was placed in the right hepatic vein. Using a Cooktransjugular biopsy set, 3 core samples were obtained. Samples were givento the pathology service. The post-biopsy venogram was unremarkable. The sheath was removed, and hemostasis was achieved with manualcompression. A sterile dressing was applied. The patient tolerated the procedure well and [facility] There were no immediate complicationsassociated with the procedure. IMPRESSION Impression: 1. Hepatic venogram with pressure measurements. The portal pressure is36-38 mmHg, the hepatic venous pressure gradient is 21-23 mmHg, and theportosystemic pressure gradient is 26-28 mmHg. 2. Successful transjugular liver biopsy under fluoroscopic guidance. Thepathology report is pending at the time of this dictation. 3. Successful ultrasound-guided paracentesis with drainage of 7000 mL ofstraw- colored fluid. Dr. Henderson performed/was present throughout the procedure and providedthe moderate sedation service. Please see the nursing sedationflowsheet. This report was approved by Vy Garner M.D. on 10/04/2016 1:48PM . I, Dr. EFRAÍN HENDERSON M.D. have personally reviewed and interpretedthis examination/study. This report was electronically signed by EFRAÍN HENDERSON M.D. on10/04/2016 5:54 PM . Gonzales Ramon MD IR ORDERABLES * IR US PARACENTESIS (10/04/2016 1:20 PM CDT) Anatomical Region Laterality Modality Other Impressions 10/04/2016 5:54 PM CDT Impression: 1. ??Hepatic venogram with pressure measurements. The portal pressure is 36-38 mmHg, the hepatic venous pressure gradient is 21-23 mmHg, and the portosystemic pressure gradient is 26-28 mmHg. 2. ??Successful transjugular liver biopsy under fluoroscopic guidance. The pathology report is pending at the time of this dictation. 3. ??Successful ultrasound-guided paracentesis with drainage of 7000 mL of straw-colored fluid. Dr. Henderson performed/was present throughout the procedure and provided the moderate sedation service. Please see the nursing sedation flowsheet. This report was approved ??by Vy Garner M.D. ?? on 10/04/2016 1:48 PM . I, Dr. EFRAÍN HENDERSON M.D. have personally reviewed and interpreted this examination/study. This report was electronically signed by EFRAÍN HENDERSON M.D. ??on 10/04/2016 5:54 PM . Narrative 10/04/2016 5:54 PM CDT History: 51-year-old female with hepatic cirrhosis and ascites. Autoimmune hepatitis is suspected. Interventional Radiology consulted for image guided transjugular liver biopsy. For safe access of TJLB and decrease radiation, it was decided to perform paracentesis prior to TJLB. Operators: 1. ??Dr. Henderson, Attending Physician 2. ??Dr. Garner, IR Fellow Anesthesia: 1. ??Local anesthesia - 20 mL of 1% lidocaine 2. ??Intravenous conscious sedation - Versed 1 mg and Dilaudid 2 mg Procedure: 1. ??Limited ultrasound evaluation of the abdomen. 2. ??Ultrasound-guided paracentesis. 3. ??Ultrasound-guided access of the right internal jugular vein. 4. ??Hepatic venogram with pressure measurement. 5. ??Transcatheter biopsy of the liver under fluoroscopic guidance. Start time: 1210 ?End time: 1319 ? Sedation initiated time: 1211 Fluoroscopic time: 24.3 minutes ?Contrast: 10 mL of Omnipaque 240 Procedure in detail: The procedure, risks and possible complications were explained to the patient in detail, and informed consent was obtained. The patient was placed supine on the angiographic table. The patient received intravenous Versed and Dilaudid for conscious sedation. A qualified radiology nurse monitored the patient?s vital signs throughout the procedure. Given the patient's abdominal distention, limited ultrasound evaluation of the abdomen was performed which revealed large volume ascites. The decision was made to perform paracentesis prior to the transjugular liver biopsy to decrease the risk of bleeding. A percutaneous entry site was marked on the skin to access the right mid abdomen laterally. The marked site and skin around the region of interest were prepped and draped in sterile fashion. Local anesthesia was provided with 1% Lidocaine. Using ultrasound guidance, a 5-Turkmen One-Step Fangddesis coaxial needle system was advanced into the peritoneal cavity. The needle entry was documented. Upon fluid return, the outer sheath was advanced over the needle into the peritoneal cavity and the needle was removed. The sheath was then connected to wall suction and?approximately 7000 mL of straw-colored fluid was drained. The patient received an appropriate amount of intravenous albumin replacement. The sheath was then removed, and sterile dressing was applied. The right neck was prepped and draped in the usual sterile manner. Limited ultrasound of right internal jugular vein demonstrated patency and compressibility. A ty scale image was documented. After instillation of 1% Lidocaine, a small skin incision was made in the right lower neck. Under real time ultrasound guidance, the right internal jugular vein was accessed using a micro-puncture needle. The needle entry was documented. After series of exchanges, a 10 Turkmen vascular sheath was placed. Using a 5 Turkmen MPA catheter, the right hepatic vein was catheterized, and a venogram was obtained. The venogram showed a normal right hepatic vein. The pressures were measured as follows: Free hepatic: 15 mmHg Wedged hepatic (portal): 36-38 mmHg Inferior vena cava: 14 mmHg Right atrium: 10 mmHg Hepatic venous pressure gradient (wedged hepatic - free hepatic): 21-23 mmHg Portosystemic pressure gradient (wedged hepatic - right atrial): 26-28 mmHg A stiffer 0.035 wire was placed in the right hepatic vein. Using a Outbox transjugular biopsy set, 3 core samples were obtained. Samples were given to the pathology service. The post-biopsy venogram was unremarkable. The sheath was removed, and hemostasis was achieved with manual compression. A sterile dressing was applied. The patient tolerated the procedure well and was transferred to the holding area in stable condition. There were no immediate complications associated with the procedure. Procedure Note Efraín Henderson MD - 05/30/2017 History: 51-year-old female with hepatic cirrhosis and ascites. Autoimmunehepatitis is suspected. Interventional Radiology consulted for imageguided transjugular liver biopsy. For safe access of TJLB and decreaseradiation, it was decided to perform paracentesis prior to TJLB. Operators: 1. Dr. Henderson, Attending Physician 2. Dr. Garner, IR Fellow Anesthesia: 1. Local anesthesia - 20 mL of 1% lidocaine 2. Intravenous conscious sedation - Versed 1 mg and Dilaudid 2 mg Procedure: 1. Limited ultrasound evaluation of the abdomen. 2. Ultrasound-guided paracentesis. 3. Ultrasound-guided access of the right internal jugular vein. 4. Hepatic venogram with pressure measurement. 5. Transcatheter biopsy of the liver under fluoroscopic guidance. Start time: 1210 End time: 1319 Sedation initiated time: 1211 Fluoroscopic time: 24.3 minutes Contrast: 10 mL of Omnipaque 240 Procedure in detail: The procedure, risks and possible complications wereexplained to the patient in detail, and informed consent was obtained. Thepatient was placed supine on the angiographic table. The patient received intravenous Versed and Dilaudid for conscioussedation. A qualified radiology nurse monitored the patient?s vital signsthroughout the procedure. Given the patient's abdominal distention, limited ultrasound evaluation ofthe abdomen was performed which revealed large volume ascites. Thedecision was made to perform paracentesis prior to the transjugular liverbiopsy to decrease the risk of bleeding. A percutaneous entry site was marked on the skin to access theright mid abdomen laterally. The marked site and skin around the region ofinterest were prepped and draped in sterile fashion. Local anesthesia wasprovided with 1% Lidocaine. Using ultrasound guidance, a 5-Turkmen One-Step Centesis coaxial needlesystem was advanced into the peritoneal cavity. The needle entry wasdocumented. Upon fluid return, the outer sheath was advanced over theneedle into the peritoneal cavity and the needle was removed. The sheath was then connected to wall suctionand?approximately 7000 mL of straw-colored fluid was drained. The patientreceived an appropriate amount of intravenous albumin replacement. Thesheath was then removed, and sterile dressing was applied. The right neck was prepped and draped in the usual sterile manner. Limitedultrasound of right internal jugular vein demonstrated patency andcompressibility. A ty scale image was documented. After instillation of1% Lidocaine, a small skin incision was made in the right lower neck. Under real time ultrasound guidance, theright internal jugular vein was accessed using a micro-puncture needle.The needle entry was documented. After series of exchanges, a 10 Frenchvascular sheath was placed. Using a 5 Turkmen MPA catheter, the right hepatic vein was catheterized,and a venogram was obtained. The venogram showed a normal right hepaticvein. The pressures were measured as follows: Free hepatic: 15 mmHg Wedged hepatic (portal): 36-38 mmHg Inferior vena cava: 14 mmHg Right atrium: 10 mmHg Hepatic venous pressure gradient (wedged hepatic - free hepatic): 21-23mmHg Portosystemic pressure gradient (wedged hepatic - right atrial): 26-28mmHg A stiffer 0.035 wire was placed in the right hepatic vein. Using a Cooktransjugular biopsy set, 3 core samples were obtained. Samples were givento the pathology service. The post-biopsy venogram was unremarkable. The sheath was removed, and hemostasis was achieved with manualcompression. A sterile dressing was applied. The patient tolerated the procedure well and [facility]. There were no immediate complicationsassociated with the procedure. IMPRESSION Impression: 1. Hepatic venogram with pressure measurements. The portal pressure is36-38 mmHg, the hepatic venous pressure gradient is 21-23 mmHg, and theportosystemic pressure gradient is 26-28 mmHg. 2. Successful transjugular liver biopsy under fluoroscopic guidance. Thepathology report is pending at the time of this dictation. 3. Successful ultrasound-guided paracentesis with drainage of 7000 mL ofstraw- colored fluid. Dr. Henderson performed/was present throughout the procedure and providedthe moderate sedation service. Please see the nursing sedationflowsheet. This report was approved by Vy Garner M.D. on 10/04/2016 1:48PM . I, Dr. EFRAÍN HENDERSON M.D. have personally reviewed and interpretedthis examination/study. This report was electronically signed by EFRAÍN HENDERSON M.D. on10/04/2016 5:54 PM . Gonzales Ramon MD IR ORDERABLES * IR US GUIDE VASCULAR ACCESS (10/04/2016 1:20 PM CDT) Anatomical Region Laterality Modality Other Impressions 10/04/2016 5:54 PM CDT Impression: 1. ??Hepatic venogram with pressure measurements. The portal pressure is 36-38 mmHg, the hepatic venous pressure gradient is 21-23 mmHg, and the portosystemic pressure gradient is 26-28 mmHg. 2. ??Successful transjugular liver biopsy under fluoroscopic guidance. The pathology report is pending at the time of this dictation. 3. ??Successful ultrasound-guided paracentesis with drainage of 7000 mL of straw-colored fluid. Dr. Henderson performed/was present throughout the procedure and provided the moderate sedation service. Please see the nursing sedation flowsheet. This report was approved ??by Vy Garner M.D. ?? on 10/04/2016 1:48 PM . I, Dr. EFRAÍN HENDERSON M.D. have personally reviewed and interpreted this examination/study. This report was electronically signed by EFRAÍN HENDERSON M.D. ??on 10/04/2016 5:54 PM . Narrative 10/04/2016 5:54 PM CDT History: 51-year-old female with hepatic cirrhosis and ascites. Autoimmune hepatitis is suspected. Interventional Radiology consulted for image guided transjugular liver biopsy. For safe access of TJLB and decrease radiation, it was decided to perform paracentesis prior to TJLB. Operators: 1. ??Dr. Henderson, Attending Physician 2. ??Dr. Garner, IR Fellow Anesthesia: 1. ??Local anesthesia - 20 mL of 1% lidocaine 2. ??Intravenous conscious sedation - Versed 1 mg and Dilaudid 2 mg Procedure: 1. ??Limited ultrasound evaluation of the abdomen. 2. ??Ultrasound-guided paracentesis. 3. ??Ultrasound-guided access of the right internal jugular vein. 4. ??Hepatic venogram with pressure measurement. 5. ??Transcatheter biopsy of the liver under fluoroscopic guidance. Start time: 1210 ?End time: 1319 ? Sedation initiated time: 1211 Fluoroscopic time: 24.3 minutes ?Contrast: 10 mL of Omnipaque 240 Procedure in detail: The procedure, risks and possible complications were explained to the patient in detail, and informed consent was obtained. The patient was placed supine on the angiographic table. The patient received intravenous Versed and Dilaudid for conscious sedation. A qualified radiology nurse monitored the patient?s vital signs throughout the procedure. Given the patient's abdominal distention, limited ultrasound evaluation of the abdomen was performed which revealed large volume ascites. The decision was made to perform paracentesis prior to the transjugular liver biopsy to decrease the risk of bleeding. A percutaneous entry site was marked on the skin to access the right mid abdomen laterally. The marked site and skin around the region of interest were prepped and draped in sterile fashion. Local anesthesia was provided with 1% Lidocaine. Using ultrasound guidance, a 5-Turkmen One-Step Fangddesis coaxial needle system was advanced into the peritoneal cavity. The needle entry was documented. Upon fluid return, the outer sheath was advanced over the needle into the peritoneal cavity and the needle was removed. The sheath was then connected to wall suction and?approximately 7000 mL of straw-colored fluid was drained. The patient received an appropriate amount of intravenous albumin replacement. The sheath was then removed, and sterile dressing was applied. The right neck was prepped and draped in the usual sterile manner. Limited ultrasound of right internal jugular vein demonstrated patency and compressibility. A ty scale image was documented. After instillation of 1% Lidocaine, a small skin incision was made in the right lower neck. Under real time ultrasound guidance, the right internal jugular vein was accessed using a micro-puncture needle. The needle entry was documented. After series of exchanges, a 10 Turkmen vascular sheath was placed. Using a 5 Turkmen MPA catheter, the right hepatic vein was catheterized, and a venogram was obtained. The venogram showed a normal right hepatic vein. The pressures were measured as follows: Free hepatic: 15 mmHg Wedged hepatic (portal): 36-38 mmHg Inferior vena cava: 14 mmHg Right atrium: 10 mmHg Hepatic venous pressure gradient (wedged hepatic - free hepatic): 21-23 mmHg Portosystemic pressure gradient (wedged hepatic - right atrial): 26-28 mmHg A stiffer 0.035 wire was placed in the right hepatic vein. Using a Cook transjugular biopsy set, 3 core samples were obtained. Samples were given to the pathology service. The post-biopsy venogram was unremarkable. The sheath was removed, and hemostasis was achieved with manual compression. A sterile dressing was applied. The patient tolerated the procedure well and was transferred to the holding area in stable condition. There were no immediate complications associated with the procedure. Procedure Note Efraín Henderson MD - 05/30/2017 History: 51-year-old female with hepatic cirrhosis and ascites. Autoimmunehepatitis is suspected. Interventional Radiology consulted for imageguided transjugular liver biopsy. For safe access of TJLB and decreaseradiation, it was decided to perform paracentesis prior to TJLB. Operators: 1. Dr. Henderson, Attending Physician 2. Dr. Garner, IR Fellow Anesthesia: 1. Local anesthesia - 20 mL of 1% lidocaine 2. Intravenous conscious sedation - Versed 1 mg and Dilaudid 2 mg Procedure: 1. Limited ultrasound evaluation of the abdomen. 2. Ultrasound-guided paracentesis. 3. Ultrasound-guided access of the right internal jugular vein. 4. Hepatic venogram with pressure measurement. 5. Transcatheter biopsy of the liver under fluoroscopic guidance. Start time: 1210 End time: 1319 Sedation initiated time: 1211 Fluoroscopic time: 24.3 minutes Contrast: 10 mL of Omnipaque 240 Procedure in detail: The procedure, risks and possible complications wereexplained to the patient in detail, and informed consent was obtained. Thepatient was placed supine on the angiographic table. The patient received intravenous Versed and Dilaudid for conscioussedation. A qualified radiology nurse monitored the patient?s vital signsthroughout the procedure. Given the patient's abdominal distention, limited ultrasound evaluation ofthe abdomen was performed which revealed large volume ascites. Thedecision was made to perform paracentesis prior to the transjugular liverbiopsy to decrease the risk of bleeding. A percutaneous entry site was marked on the skin to access theright mid abdomen laterally. The marked site and skin around the region ofinterest were prepped and draped in sterile fashion. Local anesthesia wasprovided with 1% Lidocaine. Using ultrasound guidance, a 5-Turkmen One-Step Centesis coaxial needlesystem was advanced into the peritoneal cavity. The needle entry wasdocumented. Upon fluid return, the outer sheath was advanced over theneedle into the peritoneal cavity and the needle was removed. The sheath was then connected to wall suctionand?approximately 7000 mL of straw-colored fluid was drained. The patientreceived an appropriate amount of intravenous albumin replacement. Thesheath was then removed, and sterile dressing was applied. The right neck was prepped and draped in the usual sterile manner. Limitedultrasound of right internal jugular vein demonstrated patency andcompressibility. A ty scale image was documented. After instillation of1% Lidocaine, a small skin incision was made in the right lower neck. Under real time ultrasound guidance, theright internal jugular vein was accessed using a micro-puncture needle.The needle entry was documented. After series of exchanges, a 10 Frenchvascular sheath was placed. Using a 5 Turkmen MPA catheter, the right hepatic vein was catheterized,and a venogram was obtained. The venogram showed a normal right hepaticvein. The pressures were measured as follows: Free hepatic: 15 mmHg Wedged hepatic (portal): 36-38 mmHg Inferior vena cava: 14 mmHg Right atrium: 10 mmHg Hepatic venous pressure gradient (wedged hepatic - free hepatic): 21-23mmHg Portosystemic pressure gradient (wedged hepatic - right atrial): 26-28mmHg A stiffer 0.035 wire was placed in the right hepatic vein. Using a Cooktransjugular biopsy set, 3 core samples were obtained. Samples were givento the pathology service. The post-biopsy venogram was unremarkable. The sheath was removed, and hemostasis was achieved with manualcompression. A sterile dressing was applied. The patient tolerated the procedure well [facility] There were no immediate complicationsassociated with the procedure. IMPRESSION Impression: 1. Hepatic venogram with pressure measurements. The portal pressure is36-38 mmHg, the hepatic venous pressure gradient is 21-23 mmHg, and theportosystemic pressure gradient is 26-28 mmHg. 2. Successful transjugular liver biopsy under fluoroscopic guidance. Thepathology report is pending at the time of this dictation. 3. Successful ultrasound-guided paracentesis with drainage of 7000 mL ofstraw- colored fluid. Dr. Henderson performed/was present throughout the procedure and providedthe moderate sedation service. Please see the nursing sedationflowsheet. This report was approved by Vy Garner M.D. on 10/04/2016 1:48PM . Chinyere, Dr. EFRAÍN HENDERSON M.D. have personally reviewed and interpretedthis examination/study. This report was electronically signed by EFRAÍN HENDERSON M.D. on10/04/2016 5:54 PM . Gonzales Ramon MD IR ORDERABLES * IR BIOPSY TRANSCATHETER (10/04/2016 1:20 PM CDT) Only the most recent of2 resultswithin the time period is included. Anatomical Region Laterality Modality Abdomen, Lung, Chest Other Impressions 10/04/2016 5:54 PM CDT Impression: 1. ??Hepatic venogram with pressure measurements. The portal pressure is 36-38 mmHg, the hepatic venous pressure gradient is 21-23 mmHg, and the portosystemic pressure gradient is 26-28 mmHg. 2. ??Successful transjugular liver biopsy under fluoroscopic guidance. The pathology report is pending at the time of this dictation. 3. ??Successful ultrasound-guided paracentesis with drainage of 7000 mL of straw-colored fluid. Dr. Henderson performed/was present throughout the procedure and provided the moderate sedation service. Please see the nursing sedation flowsheet. This report was approved ??by Vy Garner M.D. ?? on 10/04/2016 1:[address] EFRAÍN Whitlock M.D. have personally reviewed and interpreted this examination/study. This report was electronically signed by EFRAÍN HENDERSON M.D. ??on 10/04/2016 5:54 PM . Narrative 10/04/2016 5:54 PM CDT History: 51-year-old female with hepatic cirrhosis and ascites. Autoimmune hepatitis is suspected. Interventional Radiology consulted for image guided transjugular liver biopsy. For safe access of TJLB and decrease radiation, it was decided to perform paracentesis prior to TJLB. Operators: 1. ??Dr. Henderson, Attending Physician 2. ??Dr. Garner, IR Fellow Anesthesia: 1. ??Local anesthesia - 20 mL of 1% lidocaine 2. ??Intravenous conscious sedation - Versed 1 mg and Dilaudid 2 mg Procedure: 1. ??Limited ultrasound evaluation of the abdomen. 2. ??Ultrasound-guided paracentesis. 3. ??Ultrasound-guided access of the right internal jugular vein. 4. ??Hepatic venogram with pressure measurement. 5. ??Transcatheter biopsy of the liver under fluoroscopic guidance. Start time: 1210 ?End time: 1319 ? Sedation initiated time: 1211 Fluoroscopic time: 24.3 minutes ?Contrast: 10 mL of Omnipaque 240 Procedure in detail: The procedure, risks and possible complications were explained to the patient in detail, and informed consent was obtained. The patient was placed supine on the angiographic table. The patient received intravenous Versed and Dilaudid for conscious sedation. A qualified radiology nurse monitored the patient?s vital signs throughout the procedure. Given the patient's abdominal distention, limited ultrasound evaluation of the abdomen was performed which revealed large volume ascites. The decision was made to perform paracentesis prior to the transjugular liver biopsy to decrease the risk of bleeding. A percutaneous entry site was marked on the skin to access the right mid abdomen laterally. The marked site and skin around the region of interest were prepped and draped in sterile fashion. Local anesthesia was provided with 1% Lidocaine. Using ultrasound guidance, a 5-Turkmen One-Step Centesis coaxial needle system was advanced into the peritoneal cavity. The needle entry was documented. Upon fluid return, the outer sheath was advanced over the needle into the peritoneal cavity and the needle was removed. The sheath was then connected to wall suction and?approximately 7000 mL of straw-colored fluid was drained. The patient received an appropriate amount of intravenous albumin replacement. The sheath was then removed, and sterile dressing was applied. The right neck was prepped and draped in the usual sterile manner. Limited ultrasound of right internal jugular vein demonstrated patency and compressibility. A ty scale image was documented. After instillation of 1% Lidocaine, a small skin incision was made in the right lower neck. Under real time ultrasound guidance, the right internal jugular vein was accessed using a micro-puncture needle. The needle entry was documented. After series of exchanges, a 10 Turkmen vascular sheath was placed. Using a 5 Turkmen MPA catheter, the right hepatic vein was catheterized, and a venogram was obtained. The venogram showed a normal right hepatic vein. The pressures were measured as follows: Free hepatic: 15 mmHg Wedged hepatic (portal): 36-38 mmHg Inferior vena cava: 14 mmHg Right atrium: 10 mmHg Hepatic venous pressure gradient (wedged hepatic - free hepatic): 21-23 mmHg Portosystemic pressure gradient (wedged hepatic - right atrial): 26-28 mmHg A stiffer 0.035 wire was placed in the right hepatic vein. Using a Outbox transjugular biopsy set, 3 core samples were obtained. Samples were given to the pathology service. The post-biopsy venogram was unremarkable. The sheath was removed, and hemostasis was achieved with manual compression. A sterile dressing was applied. The patient tolerated the procedure well and was transferred to the holding area in stable condition. There were no immediate complications associated with the procedure. Procedure Note Efraín Henderson MD - 05/30/2017 History: 51-year-old female with hepatic cirrhosis and ascites. Autoimmunehepatitis is suspected. Interventional Radiology consulted for imageguided transjugular liver biopsy. For safe access of TJLB and decreaseradiation, it was decided to perform paracentesis prior to TJLB. Operators: 1. Dr. Henderson, Attending Physician 2. Dr. Garner, IR Fellow Anesthesia: 1. Local anesthesia - 20 mL of 1% lidocaine 2. Intravenous conscious sedation - Versed 1 mg and Dilaudid 2 mg Procedure: 1. Limited ultrasound evaluation of the abdomen. 2. Ultrasound-guided paracentesis. 3. Ultrasound-guided access of the right internal jugular vein. 4. Hepatic venogram with pressure measurement. 5. Transcatheter biopsy of the liver under fluoroscopic guidance. Start time: 1210 End time: 1319 Sedation initiated time: 1211 Fluoroscopic time: 24.3 minutes Contrast: 10 mL of Omnipaque 240 Procedure in detail: The procedure, risks and possible complications wereexplained to the patient in detail, and informed consent was obtained. Thepatient was placed supine on the angiographic table. The patient received intravenous Versed and Dilaudid for conscioussedation. A qualified radiology nurse monitored the patient?s vital signsthroughout the procedure. Given the patient's abdominal distention, limited ultrasound evaluation ofthe abdomen was performed which revealed large volume ascites. Thedecision was made to perform paracentesis prior to the transjugular liverbiopsy to decrease the risk of bleeding. A percutaneous entry site was marked on the skin to access theright mid abdomen laterally. The marked site and skin around the region ofinterest were prepped and draped in sterile fashion. Local anesthesia wasprovided with 1% Lidocaine. Using ultrasound guidance, a 5-Turkmen One-Step Centesis coaxial needlesystem was advanced into the peritoneal cavity. The needle entry wasdocumented. Upon fluid return, the outer sheath was advanced over theneedle into the peritoneal cavity and the needle was removed. The sheath was then connected to wall suctionand?approximately 7000 mL of straw-colored fluid was drained. The patientreceived an appropriate amount of intravenous albumin replacement. Thesheath was then removed, and sterile dressing was applied. The right neck was prepped and draped in the usual sterile manner. Limitedultrasound of right internal jugular vein demonstrated patency andcompressibility. A ty scale image was documented. After instillation of1% Lidocaine, a small skin incision was made in the right lower neck. Under real time ultrasound guidance, theright internal jugular vein was accessed using a micro-puncture needle.The needle entry was documented. After series of exchanges, a 10 Frenchvascular sheath was placed. Using a 5 Turkmen MPA catheter, the right hepatic vein was catheterized,and a venogram was obtained. The venogram showed a normal right hepaticvein. The pressures were measured as follows: Free hepatic: 15 mmHg Wedged hepatic (portal): 36-38 mmHg Inferior vena cava: 14 mmHg Right atrium: 10 mmHg Hepatic venous pressure gradient (wedged hepatic - free hepatic): 21-23mmHg Portosystemic pressure gradient (wedged hepatic - right atrial): 26-28mmHg A stiffer 0.035 wire was placed in the right hepatic vein. Using a Cooktransjugular biopsy set, 3 core samples were obtained. Samples were givento the pathology service. The post-biopsy venogram was unremarkable. The sheath was removed, and hemostasis was achieved with manualcompression. A sterile dressing was applied. The patient tolerated the procedure well and [facility]. There were no immediate complicationsassociated with the procedure. IMPRESSION Impression: 1. Hepatic venogram with pressure measurements. The portal pressure is36-38 mmHg, the hepatic venous pressure gradient is 21-23 mmHg, and theportosystemic pressure gradient is 26-28 mmHg. 2. Successful transjugular liver biopsy under fluoroscopic guidance. Thepathology report is pending at the time of this dictation. 3. Successful ultrasound-guided paracentesis with drainage of 7000 mL ofstraw- colored fluid. Dr. Henderson performed/was present throughout the procedure and providedthe moderate sedation service. Please see the nursing sedationflowsheet. This report was approved by Vy Garner M.D. on 10/04/2016 1:48PM . Dr. EFRAÍN Whitlock M.D. have personally reviewed and interpretedthis examination/study. This report was electronically signed by EFRAÍN HENDERSON M.D. on10/04/2016 5:54 PM . Gonzales Ramon MD IR ORDERABLES * IR VENOGRAM HEPATIC W HEMODYNAMICS (10/04/2016 1:20 PM CDT) Anatomical Region Laterality Modality Abdomen Other Impressions 10/04/2016 5:54 PM CDT Impression: 1. ??Hepatic venogram with pressure measurements. The portal pressure is 36-38 mmHg, the hepatic venous pressure gradient is 21-23 mmHg, and the portosystemic pressure gradient is 26-28 mmHg. 2. ??Successful transjugular liver biopsy under fluoroscopic guidance. The pathology report is pending at the time of this dictation. 3. ??Successful ultrasound-guided paracentesis with drainage of 7000 mL of straw-colored fluid. Dr. Henderson performed/was present throughout the procedure and provided the moderate sedation service. Please see the nursing sedation flowsheet. This report was approved ??by Vy Garner M.D. ?? on 10/04/2016 1:48 PM . I, Dr. KIRUBAHARA VAHEESAN, M.D. have personally reviewed and interpreted this examination/study. This report was electronically signed by EFRAÍN HENDERSON M.D. ??on 10/04/2016 5:54 PM . Narrative 10/04/2016 5:54 PM CDT History: 51-year-old female with hepatic cirrhosis and ascites. Autoimmune hepatitis is suspected. Interventional Radiology consulted for image guided transjugular liver biopsy. For safe access of TJLB and decrease radiation, it was decided to perform paracentesis prior to TJLB. Operators: 1. ??Dr. Henderson, Attending Physician 2. ??Dr. Garner, IR Fellow Anesthesia: 1. ??Local anesthesia - 20 mL of 1% lidocaine 2. ??Intravenous conscious sedation - Versed 1 mg and Dilaudid 2 mg Procedure: 1. ??Limited ultrasound evaluation of the abdomen. 2. ??Ultrasound-guided paracentesis. 3. ??Ultrasound-guided access of the right internal jugular vein. 4. ??Hepatic venogram with pressure measurement. 5. ??Transcatheter biopsy of the liver under fluoroscopic guidance. Start time: 1210 ?End time: 1319 ? Sedation initiated time: 1211 Fluoroscopic time: 24.3 minutes ?Contrast: 10 mL of Omnipaque 240 Procedure in detail: The procedure, risks and possible complications were explained to the patient in detail, and informed consent was obtained. The patient was placed supine on the angiographic table. The patient received intravenous Versed and Dilaudid for conscious sedation. A qualified radiology nurse monitored the patient?s vital signs throughout the procedure. Given the patient's abdominal distention, limited ultrasound evaluation of the abdomen was performed which revealed large volume ascites. The decision was made to perform paracentesis prior to the transjugular liver biopsy to decrease the risk of bleeding. A percutaneous entry site was marked on the skin to access the right mid abdomen laterally. The marked site and skin around the region of interest were prepped and draped in sterile fashion. Local anesthesia was provided with 1% Lidocaine. Using ultrasound guidance, a 5-Turkmen One-Step Centesis coaxial needle system was advanced into the peritoneal cavity. The needle entry was documented. Upon fluid return, the outer sheath was advanced over the needle into the peritoneal cavity and the needle was removed. The sheath was then connected to wall suction and?approximately 7000 mL of straw-colored fluid was drained. The patient received an appropriate amount of intravenous albumin replacement. The sheath was then removed, and sterile dressing was applied. The right neck was prepped and draped in the usual sterile manner. Limited ultrasound of right internal jugular vein demonstrated patency and compressibility. A ty scale image was documented. After instillation of 1% Lidocaine, a small skin incision was made in the right lower neck. Under real time ultrasound guidance, the right internal jugular vein was accessed using a micro-puncture needle. The needle entry was documented. After series of exchanges, a 10 Turkmen vascular sheath was placed. Using a 5 Turkmen MPA catheter, the right hepatic vein was catheterized, and a venogram was obtained. The venogram showed a normal right hepatic vein. The pressures were measured as follows: Free hepatic: 15 mmHg Wedged hepatic (portal): 36-38 mmHg Inferior vena cava: 14 mmHg Right atrium: 10 mmHg Hepatic venous pressure gradient (wedged hepatic - free hepatic): 21-23 mmHg Portosystemic pressure gradient (wedged hepatic - right atrial): 26-28 mmHg A stiffer 0.035 wire was placed in the right hepatic vein. Using a Outbox transjugular biopsy set, 3 core samples were obtained. Samples were given to the pathology service. The post-biopsy venogram was unremarkable. The sheath was removed, and hemostasis was achieved with manual compression. A sterile dressing was applied. The patient tolerated the procedure well and was transferred to the holding area in stable condition. There were no immediate complications associated with the procedure. Procedure Note Efraín Henderson MD - 05/30/2017 History: 51-year-old female with hepatic cirrhosis and ascites. Autoimmunehepatitis is suspected. Interventional Radiology consulted for imageguided transjugular liver biopsy. For safe access of TJLB and decreaseradiation, it was decided to perform paracentesis prior to TJLB. Operators: 1. Dr. Henderson, Attending Physician 2. Dr. Garner, IR Fellow Anesthesia: 1. Local anesthesia - 20 mL of 1% lidocaine 2. Intravenous conscious sedation - Versed 1 mg and Dilaudid 2 mg Procedure: 1. Limited ultrasound evaluation of the abdomen. 2. Ultrasound-guided paracentesis. 3. Ultrasound-guided access of the right internal jugular vein. 4. Hepatic venogram with pressure measurement. 5. Transcatheter biopsy of the liver under fluoroscopic guidance. Start time: 1210 End time: 1319 Sedation initiated time: 1211 Fluoroscopic time: 24.3 minutes Contrast: 10 mL of Omnipaque 240 Procedure in detail: The procedure, risks and possible complications wereexplained to the patient in detail, and informed consent was obtained. Thepatient was placed supine on the angiographic table. The patient received intravenous Versed and Dilaudid for conscioussedation. A qualified radiology nurse monitored the patient?s vital signsthroughout the procedure. Given the patient's abdominal distention, limited ultrasound evaluation ofthe abdomen was performed which revealed large volume ascites. Thedecision was made to perform paracentesis prior to the transjugular liverbiopsy to decrease the risk of bleeding. A percutaneous entry site was marked on the skin to access theright mid abdomen laterally. The marked site and skin around the region ofinterest were prepped and draped in sterile fashion. Local anesthesia wasprovided with 1% Lidocaine. Using ultrasound guidance, a 5-Turkmen One-Step Right Relevance coaxial needlesystem was advanced into the peritoneal cavity. The needle entry wasdocumented. Upon fluid return, the outer sheath was advanced over theneedle into the peritoneal cavity and the needle was removed. The sheath was then connected to wall suctionand?approximately 7000 mL of straw-colored fluid was drained. The patientreceived an appropriate amount of intravenous albumin replacement. Thesheath was then removed, and sterile dressing was applied. The right neck was prepped and draped in the usual sterile manner. Limitedultrasound of right internal jugular vein demonstrated patency andcompressibility. A ty scale image was documented. After instillation of1% Lidocaine, a small skin incision was made in the right lower neck. Under real time ultrasound guidance, theright internal jugular vein was accessed using a micro-puncture needle.The needle entry was documented. After series of exchanges, a 10 Frenchvascular sheath was placed. Using a 5 Turkmen MPA catheter, the right hepatic vein was catheterized,and a venogram was obtained. The venogram showed a normal right hepaticvein. The pressures were measured as follows: Free hepatic: 15 mmHg Wedged hepatic (portal): 36-38 mmHg Inferior vena cava: 14 mmHg Right atrium: 10 mmHg Hepatic venous pressure gradient (wedged hepatic - free hepatic): 21-23mmHg Portosystemic pressure gradient (wedged hepatic - right atrial): 26-28mmHg A stiffer 0.035 wire was placed in the right hepatic vein. Using a Cooktransjugular biopsy set, 3 core samples were obtained. Samples were givento the pathology service. The post-biopsy venogram was unremarkable. The sheath was removed, and hemostasis was achieved with manualcompression. A sterile dressing was applied. The patient tolerated the procedure well and [facility] condition. There were no immediate complicationsassociated with the procedure. IMPRESSION Impression: 1. Hepatic venogram with pressure measurements. The portal pressure is36-38 mmHg, the hepatic venous pressure gradient is 21-23 mmHg, and theportosystemic pressure gradient is 26-28 mmHg. 2. Successful transjugular liver biopsy under fluoroscopic guidance. Thepathology report is pending at the time of this dictation. 3. Successful ultrasound-guided paracentesis with drainage of 7000 mL ofstraw- colored fluid. Dr. Henderson performed/was present throughout the procedure and providedthe moderate sedation service. Please see the nursing sedationflowsheet. This report was approved by Vy Garner M.D. on 10/04/2016 1:48PM . I, Dr. EFRAÍN HENDERSON M.D. have personally reviewed and interpretedthis examination/study. This report was electronically signed by EFRAÍN HENDERSON M.D. on10/04/2016 5:54 PM . Gonzales Ramon MD IR ORDERABLES * GLUCOSE ACCUCHECK (09/30/2016 11:57 AM CDT) Only the most recent of3 resultswithin the time period is included. Glucose, Fingerstick 86 70-115mg/d L mg/dL [facility] (BEAKER) Comment:Grievance And Appeals Specialist: GUICHO FRANK 09/30/2016 11:5 7 AM CDT Katherine Kilpatrick PA-C LAB - CHEMISTRY ORDERABLES [facility] (BEAKER) * LIPASE BODY FLUID ([facility] ONLY) (07/31/2016 10:41 AM CDT) Lipase Fluid 16 Not Established For Fluids Units/L [facility] Comment:The reference range and other method performance specifications have not been established for this fluid. The test result must be integrated into the clinical context for interpretation. Fluid specimen (specimen) PERITONEAL FLUID / Unknown 07/31/2016 10:41 AM CDT 07/31/2016 11:07 AM CDT Freya Graves Usman [employer] LAB - BODY F LUID ORDERABLES Performing Organization Address [facility] Co de Phone Number [address] [phone] * AMYLASE BODY FLUID ([facility] ONLY) (07/31/2016 10:41 AM CDT) Amylase Fluid 15 Not Established For Fluids Units/L [facility] Comment:The reference range and other method performance specifications have not been established for this fluid. The test result must be integrated into the clinical context for interpretation. Fluid specimen (specimen) PERITONEAL FLUID / Unknown 07/31/2016 10:41 AM CDT 07/31/2016 11:07 AM CDT Freya Mary APRN-[employer] LAB - BODY F LUID ORDERABLES Performing Organization Address [facility] Co de Phone Number [address] [phone] * PROTEIN FLUID (07/31/2016 10:41 AM CDT) Protein Fluid 1.5 Not Established For Fluids g/dL [facility] Comment:The reference range and other method performance specifications have not been established for this fluid. The test result must be integrated into the clinical context for interpretation. Fluid specimen (specimen) PERITONEAL FLUID / Unknown 07/31/2016 10:41 AM CDT 07/31/2016 11:07 AM CDT Freya Mary [employer]G [employer] LAB - BODY F LUID ORDERABLES Performing Organization Address [facility] de Phone Number [address] [phone] * ALBUMIN FLUID (07/31/2016 10:41 AM CDT) Albumin Fluid 0.9 Not Established For Fluids g/dL [facility] Comment:The reference range and other method performance specifications have not been established for this fluid. The test result must be integrated into the clinical context for interpretation. Fluid specimen (specimen) PERITONEAL FLUID / Unknown 07/31/2016 10:41 AM CDT 07/31/2016 11:07 AM CDT Freya Mary APRN-[employer] LAB - BODY F LUID ORDERABLES Performing Organization Address [facility] de Phone Number [address] [phone] * (ABNORMAL) ALBUMIN BLOOD (07/31/2016 10:41 AM CDT) Albumin 2.7(L) 3.4 - 5.0 g/dL [facility] Blood specimen (specimen) BLOOD SPECIMEN / Unknown 07/31/2016 10:41 AM CDT 07/31/2016 10:47 AM CDT Freya Mary [employer] LAB - CHEMIS TRY ORDERABLES Performing Organization Address [facility] Co de Phone Number [address] [phone] * CYTOLOGY NON-TIE LOADER PANEL (STL) (07/31/2016 10:41 AM CDT) Cytology Non-Communications Coordinator Accession No: [id number] Reference: [id number] Specimen: PERITONEAL FLUID Clinical History: Ascites Gross Description: 700 ml yellow fluid Preparation Method: 1pap stain, 1 cytospin pap, 1 Diff-Quik stained slides, 1 cell block SPECIMEN ADEQUACY: ADEQUATE FOR EVALUATION FINAL DIAGNOSIS: SPECIMEN A: PERITONEAL FLUID -NEGATIVE FOR MALIGNANCY MICROSCOPIC DESCRIPTION: Specimen A: Review of 1 Pap stained and 1 Diff-Quick stained smear and 1 Pap stained cytospin slide reveal mesothelial cells and lymphocytes. ?? Cell block shows mesothelial cells and lymphocytes. COMMENT(S): This case has been personally reviewed and interpreted by the attending (teaching) pathologist. Initial Evaluation performed by Mely GARSIA ([facility]). Electronically signed 08/01/2016 Final Diagnosis performed by Hong Edwards MD. Electronically signed 08/01/2016 [facility] ([facility]) Other (qualifier value) 07/31/2016 10:41 AM CDT 07/31/2016 11:09 AM CDT Narrative [facility] ([facility]) - 08/01/2016 4:11 PM CDT Diagnosis->ascites Collection Date->07/31/16 Specimen A->Peritoneal Fluid Freya Mary [employer]G [employer] LAB - PATHOL OGY/CYTOLOGY ORDERABLES Performing Organization Address [facility]/ZIP Co de Phone Number [facility] ([facility]) * CERULOPLASMIN (07/23/2016 11:42 AM CDT) Ceruloplasmin 27 20 - 60 mg/dL [facility] Blood specimen (specimen) BLOOD SPECIMEN / Unknown 07/23/2016 11:42 AM CDT 07/23/2016 12:35 PM CDT Gonzales Ramon MD LAB - CHEMISTRY CORNELIA GAVIN [address] [phone] * (ABNORMAL) GGT (07/23/2016 11:42 AM CDT) GGT 408(H) 9 - 64 Units/L [facility] Blood specimen (specimen) BLOOD SPECIMEN / Unknown 07/23/2016 11:42 AM CDT 07/23/2016 12:35 PM CDT Gonzales Ramon MD LAB - CHEMISTRY CORNELIA GAVIN Performing Organization Address [facility] Co de Phone Number [address] [phone] * (ABNORMAL) HEPATITIS A ANTIBODY (07/23/2016 11:42 AM CDT) Hepatitis A Virus Antibody Total Positive(A ) Negative [facility] ([facility]) Blood specimen (specimen) 07/23/2016 11:42 AM CDT 07/23/2016 12:35 PM CDT Narrative [facility] ([facility]) - 07/24/2016 11:15 AM CDT Performed at: ?? - Lab[address] ??[id number] Runner On: Perez Chavis PhD, Phone: ??[phone] Gonzales Ramon MD LAB - CHEMISTRY CORNELIA GAVIN Performing Organization Address [facility] Co de Phone Number [facility] ([facility]) * (ABNORMAL) AFSHIN BLOOD SCREEN (07/23/2016 11:42 AM CDT) Pathologist [facility] AFSHIN Positive(A ) None Detected [facility] Venous blood specimen (specimen) 07/23/2016 11:42 AM CDT 07/23/2016 12:35 PM CDT Gonzales Ramon MD LAB - CHEMISTRY CORNELIA GAVIN Performing Organization Address [facility] Co de Phone Number [address] [phone] * (ABNORMAL) SMOOTH MUSCLE ANTIBODY (07/23/2016 11:42 AM CDT) F-Actin Antibody IgG 24.9(H) 0.0 - 19.9 Units [facility] Comment: F-Actin Antibody Numeric Result Interpretation: ?<20.0 Units: ??Negative ?20.0 - 30.0 Units: ??Weak Positive ?>30.0 Units: ??Moderate to Strong Positive ? Blood specimen (specimen) BLOOD SPECIMEN / Unknown 07/23/2016 11:42 AM CDT 07/23/2016 12:35 PM CDT Gonzales Ramon MD LAB - SEROLOGY ORDER FAM Performing Organization Address [facility] de Phone Number [address] [phone] * DNA (DS) ANTIBODY RFLEX IFA (12/08/2014 12:06 PM CDT) dsDNA Antibody 2 0 - 29 IU/mL [facility] Comment: dsDNA Antibody Numeric Result Interpretation: ? 0 - 29 IU/mL: ??Negative ?30 - 75 IU/mL: ??Borderline ?>75 IU/mL: ??Positive ? Blood specimen (specimen) BLOOD SPECIMEN / Unknown 12/08/2014 12:06 PM CDT 12/08/2014 1:32 PM CDT Yossi Ware MD LAB - SEROLOGY ORDER FAM Performing Organization Address [facility] de Phone Number [address] [phone] * BETA-2 GLYCOPROTEIN 1 ANTIBODY IGG (12/08/2014 12:06 PM CDT) Beta-2 Glycoprotein I Antibody IgG <20.0 <20.0 U [facility] Blood specimen (specimen) BLOOD SPECIMEN / Unknown 12/08/2014 12:06 PM CDT 12/08/2014 1:32 PM CDT Yossi Ware MD LAB - SEROLOGY ORDER FAM Performing Organization Address [facility] de Phone Number [address] [phone] * BETA-2 GLYCOPROTEIN 1 ANTIBODY IGM (12/08/2014 12:06 PM CDT) Beta-2 Glycoprotein Antibody IgM <20.0 <20.0 [facility] Blood specimen (specimen) BLOOD SPECIMEN / Unknown 12/08/2014 12:06 PM CDT 12/08/2014 1:32 PM CDT Yossi Ware MD LAB - SEROLOGY ORDER FAM [address] [phone] * LUPUS ANTICOAGULANT PANEL (12/08/2014 12:06 PM CDT) Pathologist [facility] APTT 31.6 23.0 - 38.4 Seconds [facility] PT 14.2 12.1 - 14.8 Seconds [facility] [place] Buffer 45.1 Seconds [facility] [place] Phospholipid 42.4 Seconds [facility] [place] Delta 2.7 <9.0 Seconds [facility] Interpretation [place] Negative Negative [facility] Comment: Up to 15-20% of patients with lupus anticoagulant associated with antiphospholipid antibody syndrome (APAS) will have negative [place] results. ??For these patients we recommend additional testing to include the Dilute Abe Viper Venom Time (DRVVT) test. ??Immunoassay measurements of anti-cardiolipin and anti-beta-2 glycoprotein 1 are recommended if the DRVVT, and STACLOT-LA tests are negative and there is clinical suspicion of APAS. INR 1.1 [facility] Blood specimen (specimen) BLOOD SPECIMEN / Unknown 12/08/2014 12:06 PM CDT 12/08/2014 1:32 PM CDT Yossi Ware MD LAB - HEMATOLOGY ORD ERABLES [address] [phone] * CARDIOLIPIN ANTIBODY IGA (12/08/2014 12:06 PM CDT) Only the most recent of2 resultswithin the time period is included. Anticardiolipin Antibody IgA <15.0 <15.0 APL [facility] Blood specimen (specimen) BLOOD SPECIMEN / Unknown 12/08/2014 12:06 PM CDT 12/08/2014 1:32 PM CDT Yossi Ware MD LAB - SEROLOGY ORDER FAM [address] [phone] * CARDIOLIPIN ANTIBODY IGM (12/08/2014 12:06 PM CDT) Only the most recent of2 resultswithin the time period is included. Anticardiolipin Antibody IgM <15.0 <15.0 MPL [facility] Blood specimen (specimen) BLOOD SPECIMEN / Unknown 12/08/2014 12:06 PM CDT 12/08/2014 1:32 PM CDT Yossi Ware MD LAB - SEROLOGY ORDER FAM Performing Organization Address City/[facility] Co de Phone Number [address] [phone] * BETA-2 GLYCOPROTEIN 1 ANTIBODY IGA (12/08/2014 12:06 PM CDT) Beta-2 Glycoprotein I Antibody IgA <20.0 <20.0 SIVAN [facility] Blood specimen (specimen) BLOOD SPECIMEN / Unknown 12/08/2014 12:06 PM CDT 12/08/2014 1:32 PM CDT Yossi Ware MD LAB - SEROLOGY ORDER FAM Performing Organization Address City/[facility] Co de Phone Number [address] [phone] * (ABNORMAL) AFSHIN W/REFLEX IFA PATTERN (12/08/2014 12:06 PM CDT) AFSHIN Positive(A ) None Detected [facility] Blood specimen (specimen) BLOOD SPECIMEN / Unknown 12/08/2014 12:06 PM CDT 12/08/2014 1:29 PM CDT Yossi Ware MD LAB - SEROLOGY ORDER FAM Performing Organization Address [facility] Co de Phone Number [address] [phone] * DNA ANTIBODY DS CRITHIDIA TITER (12/08/2014 12:06 PM CDT) Pathologist [facility] dsDNA Antibody IgG IFA <1:10 <1:10 [facility] ([facility]) Comment: INTERPRETIVE INFORMATION: Double-Stranded DNA (dsDNA) Antibody, IgG by IFA (using Crithidia luciliae) Positivity for anti-double stranded DNA (anti-dsDNA) IgG antibody is a diagnostic criterion of systemic lupus erythematosus (SLE). The presence of the anti-dsDNA IgG antibody is identified by IFA titer (Crithidia luciliae indirect fluorescent test [WAQAS]). WAQAS is highly specific for SLE with a sensitivity of 50-60 percent. Some patients with early or inactive SLE may be positive for anti-dsDNA IgG by AMRIK but negative by WAQAS. If the WAQAS result is negative but the patient has a positive AMRIK and clinical suspicion remains, consider antinuclear antibody (AFSHIN) testing by IFA. Additional information and recommendations for testing may be found at http://[email or web address]/Topics/AutoimmuneDz/ConnectiveTissueDz/i ndex.html. Blood specimen (specimen) BLOOD SPECIMEN / Unknown 12/08/2014 12:06 PM CDT 12/08/2014 1:31 PM CDT Yossi Ware MD LAB - SEROLOGY ORDER FAM Performing Organization Address [facility]/ZIP Co de Phone Number [facility] ([facility]) * TISSUE TRANSGLUTAMINASE AB IGG (12/08/2014 12:06 PM CDT) TTG Antibody IgG 4 0 - 5 U/mL [facility] ([facility]) Comment: ?Negative ?0 - 5 ?Weak Positive ?? 6 - 9 ?Positive ? >9 Blood specimen (specimen) BLOOD SPECIMEN / Unknown 12/08/2014 12:06 PM CDT 12/08/2014 1:29 PM CDT Narrative [facility] [place]) - 12/09/2014 3:22 PM CDT Performed at: ??01 - [facility], [place], [place] ??[id number] Runner On: Perez Chavis PhD, Phone: ??[phone] Yossi Ware MD LAB - CHEMISTRY CORNELIA GAVIN [facility]) * (ABNORMAL) GLIADIN ANTIBODY IGG (12/08/2014 12:06 PM CDT) Deamidated Gliadin Antibody IgG 130(H) 0 - 19 units [facility] ([place]) Comment: ? Negative ? 0 - 19 ? Weak Positive ? 20 - 30 ? Moderate to Strong Positive ?? >30 Blood specimen (specimen) BLOOD SPECIMEN / Unknown 12/08/2014 12:06 PM CDT 12/08/2014 1:32 PM CDT Narrative [facility]) - 12/09/2014 3:22 PM CDT Performed at: ??01 - [facility] [address] ??[id number] Runner On: Perez Chavis PhD, Phone: ??[phone] Yossi Ware MD LAB - SEROLOGY ORDER FAM Performing Organization Address [facility]/ZIP Co de Phone Number [facility] ([place]) * CARDIOLIPIN ANTIBODY IGG (12/08/2014 12:06 PM CDT) Anticardiolipin Antibody IgG <15.0 <15.0 GPL [facility] Blood specimen (specimen) BLOOD SPECIMEN / Unknown 12/08/2014 12:06 PM CDT 12/08/2014 1:32 PM CDT Yossi Ware MD LAB - SEROLOGY ORDER FAM Performing Organization Address [facility] de Phone Number [address] [phone] * VOTING MACHINE REPAIRER ANTIBODY (12/08/2014 12:06 PM CDT) SM/VOTING MACHINE REPAIRER Antibody 3.1 0.0 - 19.9 Units [facility] Comment: TYLOR Antibody Numeric Result Interpretation: ?<20.0 Units: ??Negative ?20.0 - 39.0 Units: ??Weakly Positive ?>39.0 Units: ??Positive ? Blood specimen (specimen) BLOOD SPECIMEN / Unknown 12/08/2014 12:06 PM CDT 12/08/2014 1:29 PM CDT Yossi Ware MD LAB - CHEMISTRY CORNELIA GAVIN Performing Organization Address [facility]/ZIP Co de Phone Number [address] [phone] * NEUTROPHIL CYTOPLASMIC ANTIBODY (12/08/2014 12:06 PM CDT) Cytoplasmic (C-ANCA) <1:20 Neg:<1:20 titer [facility] ([place]) p-ANCA <1:20 Neg:<1:20 titer [facility] ([place]) Comment: The presence of positive fluorescence exhibiting P-ANCA or C-ANCA patterns alone is not specific for the diagnosis of Irais's Granulomatosis (WG) or microscopic polyangiitis. Decisions about treatment should not be based solely on ANCA IFA results. ??The International ANCA Group Consensus recommends follow up testing of positive sera with both OK-3 and MPO-ANCA enzyme immunoassays. As many as 5% serum samples are positive only by EIA. Ref. AM J Clin Pathol 1999;111:507-513. Atypical p-ANCA <1:20 Neg:<1:20 titer [facility] ([place]) Comment: The atypical pANCA pattern has been observed in a significant percentage of patients with ulcerative colitis, primary sclerosing cholangitis and autoimmune hepatitis. Blood specimen (specimen) BLOOD SPECIMEN / Unknown 12/08/2014 12:06 PM CDT 12/08/2014 1:31 PM CDT Narrative [facility] ([place]) - 12/09/2014 3:22 PM CDT Performed at: ??01 - [address] ??[id number] Runner On: Perez Chavis PhD, Phone: ??[phone] Yossi Ware MD LAB - CHEMISTRY CORNELIA GAVIN [facility] Organization Address City/State/ZIP Co de Phone Number [facility]) * (ABNORMAL) COMPLEMENT TOTAL (12/08/2014 12:06 PM CDT) Complement Total CH50 >63(H) 42 - 62 U/mL [facility] ([place]) Blood specimen (specimen) BLOOD SPECIMEN / Unknown 12/08/2014 12:06 PM CDT 12/08/2014 1:31 PM CDT Narrative [facility] ([place]) - 12/09/2014 5:14 PM CDT Performed at: ??01 - [address] ??[id number] Runner On: Peerz Chavis PhD, Phone: ??[phone] Yossi Ware MD LAB - CHEMISTRY CORNELIA GAVIN Performing Organization Address City/[facility]/ZIP Co de Phone Number [facility] ([place]) * SS-A (SJOGREN'S) ANTIBODY (12/08/2014 12:06 PM CDT) Pathologist [facility] SS-A (Ro) Antibody 2.5 0.0 - 19.9 Units [facility] Comment: TYLOR Antibody Numeric Result Interpretation: ?<20.0 Units: ??Negative ?20.0 - 39.0 Units: ??Weakly Positive ?>39.0 Units: ??Positive ? Blood specimen (specimen) BLOOD SPECIMEN / Unknown 12/08/2014 12:06 PM CDT 12/08/2014 1:29 PM CDT Yossi Ware MD LAB - CHEMISTRY CORNELIA GAVIN Performing Organization Address [facility]/ZIP Co de Phone Number [address] [phone] * CYCLIC CITRUL PEPTIDE AB IGG (CCP) (12/08/2014 12:06 PM CDT) Pathologist [facility] CCP Antibody IgG <0.5 <5.0 U/mL [facility] Blood specimen (specimen) BLOOD SPECIMEN / Unknown 12/08/2014 12:06 PM CDT 12/08/2014 1:30 PM CDT Yossi Ware MD LAB - CHEMISTRY CORNELIA GAVIN Performing Organization Address City/[facility]/ZIP Co de Phone Number [address] [phone] * T4 FREE (12/08/2014 12:06 PM CDT) Pathologist [facility] T4 Free 1.0 0.7 - 1.5 ng/dL [facility] Blood specimen (specimen) BLOOD SPECIMEN / Unknown 12/08/2014 12:06 PM CDT 12/08/2014 1:32 PM CDT Yossi Wrae MD LAB - CHEMISTRY CORNELIA GAVIN [facility] Organization Address City/State/ZIP Co de Phone Number [address] [phone] * XR HAND LEFT 3VW OR MORE (12/08/2014 12:00 PM CDT) Anatomical Region Laterality Modality Wrist / Hand Other Impressions 12/08/2014 3:13 PM CDT IMPRESSION: 1. Right hand radiographs demonstrate a cyst in the proximal aspect of the lunate without other evidence of arthritis. 2. Left hand radiographs demonstrate a few subchondral cysts without joint space narrowing. Dictated by Jason Santoro MD (radiology transporter). This report was approved ??by Jason Santoro ?? on 12/08/2014 2:29 PM . I, Dr. SAURAV NAYLOR MD have personally reviewed and interpreted this examination/study. This report was electronically signed by SAURAV NAYLOR MD ??on 12/08/2014 3:13 PM . Narrative 12/08/2014 3:13 PM CDT EXAMINATION: XR HAND LEFT 3+ VW, XR HAND RIGHT 3+ VW HISTORY: Arthralgia, possible diagnosis of lupus COMPARISON: No prior study is available for comparison. FINDINGS: Right hand: The osseous structures are intact and well aligned without acute fracture or dislocation. The joint spaces are preserved. There is a cyst in the proximal aspect of the lunate. Bone density and texture are normal. No soft tissue swelling is present. Left hand: The osseous structures are intact and well aligned without acute fracture or dislocation. There are subchondral cysts in the third and fourth proximal interphalangeal joints as well as the fourth distal interphalangeal joint. Bone density and texture are normal. No soft tissue swelling is present. Procedure Note Saurav Naylor MD - 05/31/2017 EXAMINATION: XR HAND LEFT 3+ VW, XR HAND RIGHT 3+ VW HISTORY: Arthralgia, possible diagnosis of lupus COMPARISON: No prior study is available for comparison. FINDINGS: Right hand: The osseous structures are intact and well aligned without acute fractureor dislocation. The joint spaces are preserved. There is a cyst in theproximal aspect of the lunate. Bone density and texture are normal. Nosoft tissue swelling is present. Left hand: The osseous structures are intact and well aligned without acute fractureor dislocation. There are subchondral cysts in the third and fourthproximal interphalangeal joints as well as the fourth distalinterphalangeal joint. Bone density and texture are normal. No soft tissue swelling is present. IMPRESSION IMPRESSION: 1. Right hand radiographs demonstrate a cyst in the proximal aspect of thelunate without other evidence of arthritis. 2. Left hand radiographs demonstrate a few subchondral cysts without jointspace narrowing. Dictated by Jason Santoro MD (radiology transporter). This report was approved by Jason Santoro on 12/08/2014 2:[address] SAURAV Whitlock MD have personally reviewed and interpreted thisexamination/study. This report was electronically signed by SAURAV NAYLOR MD on 12/08/20143:13 PM . Yossi Ware MD DIAGNOSTIC IMAGING O RDERABLES * XR HAND RIGHT 3VW OR MORE (12/08/2014 12:00 PM CDT) Anatomical Region Laterality Modality Wrist / Hand Other Impressions 12/08/2014 3:13 PM CDT IMPRESSION: 1. Right hand radiographs demonstrate a cyst in the proximal aspect of the lunate without other evidence of arthritis. 2. Left hand radiographs demonstrate a few subchondral cysts without joint space narrowing. Dictated by Jason Santoro MD (radiology transporter). This report was approved ??by Jason Santoro ?? on 12/08/2014 2:[address] SAURAV Whitlock MD have personally reviewed and interpreted this examination/study. This report was electronically signed by SAURAV NAYLOR MD ??on 12/08/2014 3:13 PM . Narrative 12/08/2014 3:13 PM CDT EXAMINATION: XR HAND LEFT 3+ VW, XR HAND RIGHT 3+ VW HISTORY: Arthralgia, possible diagnosis of lupus COMPARISON: No prior study is available for comparison. FINDINGS: Right hand: The osseous structures are intact and well aligned without acute fracture or dislocation. The joint spaces are preserved. There is a cyst in the proximal aspect of the lunate. Bone density and texture are normal. No soft tissue swelling is present. Left hand: The osseous structures are intact and well aligned without acute fracture or dislocation. There are subchondral cysts in the third and fourth proximal interphalangeal joints as well as the fourth distal interphalangeal joint. Bone density and texture are normal. No soft tissue swelling is present. Procedure Note Saurav Naylor MD - 05/31/2017 EXAMINATION: XR HAND LEFT 3+ VW, XR HAND RIGHT 3+ VW HISTORY: Arthralgia, possible diagnosis of lupus COMPARISON: No prior study is available for comparison. FINDINGS: Right hand: The osseous structures are intact and well aligned without acute fractureor dislocation. The joint spaces are preserved. There is a cyst in theproximal aspect of the lunate. Bone density and texture are normal. Nosoft tissue swelling is present. Left hand: The osseous structures are intact and well aligned without acute fractureor dislocation. There are subchondral cysts in the third and fourthproximal interphalangeal joints as well as the fourth distalinterphalangeal joint. Bone density and texture are normal. No soft tissue swelling is present. IMPRESSION IMPRESSION: 1. Right hand radiographs demonstrate a cyst in the proximal aspect of thelunate without other evidence of arthritis. 2. Left hand radiographs demonstrate a few subchondral cysts without jointspace narrowing. Dictated by Jason Santoro MD (radiology transporter). This report was approved by Jason Santoro on 12/08/2014 2:29 PM . I, Dr. SAURAV NAYLOR MD have personally reviewed and interpreted thisexamination/study. This report was electronically signed by SAURAV NAYLOR MD on 12/08/20143:13 PM . Yossi Ware MD DIAGNOSTIC IMAGING O RDERABLES * FUNGUS ASHER - POINT OF CARE (AMB) [facility] (10/28/2011 3:04 PM CDT) ASHER Prep positive [facility] Comment:pseudohyphae and spo res Fluid specimen (specimen) 10/28/2011 3:04 PM CDT Magdiel Baird MD LAB - POINT OF CARE ORDERABLES [facility] Care Teams Supervisor Lump Room Relationship Specialty Start Date End Date Amor Arboleda DO [address] [place] [id number] PCP - General Family Medicine Geriatric Medicine 12/03/22 Nelly Ozuna APRN-[employer] [address] [place] [address] [place] [phone] Nurse Practitioner Nurse Practitioner 06/19/20
--- OUTSIDE RECORDS SUMMARY | 2024-03-27 07:30 | XMS_ITS | Encounter Summary ---
Author Organization [facility] Health Address [address] [place] [address] Care Team Providers Care Polysomnographic Technician Name Role Phone Amor Arboleda DO Primary Care Provider + Nelly Ozuna APRN-JOINT YARNER Unavailable [phone] Amor Arboleda DO Primary Care Provider + Reason for Visit * Reason Onset Date Comments MEDICATION REFILL 09/12/2020 Encounter Details Date Type Department Care Team (Late st Contact Info) Description 09/12/[address] [address] Amor Farley, DO [address] [place] [id number] MEDICATION REFILL Social History Tobacco Use Types Packs/Day Years Used Date Smoking Tobacco: Never Smokeless Tobacco: Never Alcohol Use Standard Drinks/Week Comments No 0 (1 standard drink = 0.6 oz pur e alcohol) PHQ-2 Answer Date Recorded PHQ2 TOTAL SCORE 2 07/10/2020 Sex and Gender Information Value Date Recorded Sex Assigned at Not on file Gender Identity Female 09/25/2017 10:09 AM CDT Sexual Orientation Not on file documented as of this encounter Functional Status Functional Status Response Date of Assess ment Is person deaf or have serious hearing difficult y? No 07/03/2018 Is person blind or have serious difficulty seein g? No 07/03/2018 Does person have serious dif ficulty walking/climbing stairs? No 07/03/2018 Does person have difficulty dressing/bathing? No 07/03/2018 Does person have difficulty doing errands alone? No 07/03/2018 Cognitive Status Response Date of Assessm ent Does person have difficulty concentrating/remembering/making decisions? No 07/03/2018 documented as of this encounter Plan of Treatment Upcoming Encounters Date Type Department Care Team (Latest Contact Info) Description 04/26/2024 7:00 AM INSPECTOR ALUMINUM BOAT Appointment [facility] [address] [place] [address] Dewey Villaseñor MD [address] [place] [address] [address] [place] [address] 04/26/2024 8:00 AM INSPECTOR ALUMINUM BOAT Office Visit [facility] [place] [address] [place] [address], [place] [phone] Dagoberto Walker MD [address] [place] [address] [address] [place] [address] 05/14/2024 9:15 AM CDT Hospital Encounter [facility] ENDOSCOPY [address] [place] [address] Douglas Gomez MD [address] [place] [phone] Surgery General 05/14/2024 9:15 AM CDT - 05/14/2024 10:00 AM CDT Surgery [facility] [address] [place] [address] Douglas Gomez MD [address] [place] [phone] COLONOSCOPY SCREEN w/ extended prep Scheduled Procedures Name Priority Associated Diagnoses Date/Ti me COLONOSCOPY SCREEN Colon cancer screening Iron deficiency anemia, unspecified iron deficiency anemia type 05/14/2024 9:15 AM CDT documented as of this encounter Goals Goal Patient Goal Type Associated Problems [...] your last dose Safety General On track( 10:49 AM INSPECTOR ALUMINUM BOAT) No Arleth Mcghee, ABRIL Note: Expected end date: ongoing Interventions: Your nurse will assess your risk for falls/injury each visit Make sure appropriate safety devices are available and within reach Be aware of medications that could predispose you to falling Wear non-skid/rubber sole footwear Wear glasses/hearing aid Keep personal items within easy reach Use some light at night in your room documented as of this encounter Visit Diagnoses Not on filedocumented in this encounter Additional Health Concerns Infection Onset Date Last Indicated Resolved Time COVID-19 Under Investigation 03/07/2023 03/07/2023 03/07/2023 4:14 PM INSPECTOR ALUMINUM BOAT documented as of this encounter Care Teams Polysomnographic Technician Relationship Specialty Start Date End Date Amor Arboleda DO [address] [place] [id number] PCP - General 11/12/19 10/24/21 Amor Arboleda DO [address] [place] [address] PCP - General Family Medicine Geriatric Medicine 12/03/22 Nelly Ozuna APRN-JOINT YARNER [address] [place] [address] Nurse Practitioner Nurse Practitioner 06/19/20 documented as of this encounter
--- OUTSIDE RECORDS SUMMARY | 2024-03-27 07:30 | XMS_ITS | Encounter Summary ---
Author Organization [employer] Address [address] [place] [address] Care Team Providers Care Oilfield Plant And Field Operator Name Role Phone Unavailable Primary Care Provider Unavailabl e Encounter Details Date Type Department Care Team (Late st Contact Info) Description 03/23/1999 Outpatient Historical [facility] INTERNAL MEDIC[facility] Sonia Ocampo MD [address] [place], [place] [id number] Social History Tobacco Use Types Packs/Day Years Used Date Smoking Tobacco: Never Assessed Comments Unknown Sex and Gender Information Value Date Recorded Sex Assigned at Not on file Legal Sex Female 4:25 AM DUCTFIXING PLUMBER Gender Identity Not on file Sexual Orientation Not on file documented as of this encounter Plan of Treatment Not on file documented as of this encounter Visit Diagnoses Not on filedocumented in this encounter
--- OUTSIDE RECORDS SUMMARY | 2024-03-27 07:30 | XMS_ITS | Clinical Summary ---
Author Organization [facility] Address [address] [facility] [address] [place] [address] Phone Care Team Providers Care Alliance Director Name Role Phone Osvaldo Dawson DO Unavailable [phone] Jemma Guardado MD Unavailable Amor Arboleda DO Primary Care Provider + Allergies No known active allergies Medications potassium chloride SA (KLORCON M) 10 MEQ Tablet Controlled Release Take 10 mEq by mouth daily. 11/23/2022 Active furosemide (LASIX) 80 MG Tablet Take 80 mg by mouth daily. 08/20/2022 Active pantoprazole (PROTONIX) 40 MG Tablet Delayed Response 10/19/2022 Active Rizatriptan Benzoate 10 MG Tablet Take 10 mg by mouth. 06/25/2021 Active spironolactone (ALDACTONE) 100 MG Tablet 09/26/2022 Active albuterol 108 (90 Base) MCG/ACT Aerosol Solution 10/19/2022 Active methocarbamol (ROBAXIN) 500 MG Tablet Take 500 mg by mouth. 07/13/2019 Active Diclofenac Sodium (VOLTAREN) 1 % Gel Apply 2-4 g. 04/25/2020 Active nortriptyline (PAMELOR) 10 MG Capsule Take 10 mg by mouth. 11/22/2021 Active fish oil-omega-3 fatty acids 1000 MG Capsule Take 1,000 mg by mouth daily. Active cyclobenzaprine (FLEXERIL) 10 MG Tablet Take 10 mg by mouth 3 times daily as needed. Active promethazine (PHENERGAN) 25 MG Tablet Take 25 mg by mouth every 6 hours as needed. Active tamsulosin (FLOMAX) 0.4 MG Capsule Take 0.4 mg by mouth daily. Active rifAXIMin (XIFAXAN) 550 MG Tablet Take 550 mg by mouth 2 times daily. Active ondansetron (ZOFRAN-ODT) 4 MG TABLET DISPERSIBLE Take 4 mg by mouth every 8 hours as needed. Active amLODIPine (NORVASC) 5 MG Tablet Take 5 mg by mouth daily. Active ferrous sulfate 325 (65 Fe) MG Tablet Take 1 Tablet by mouth daily. 30 Tablet 1 12/09/2022 Active ascorbic acid (ASCORBIC ACID) 500 MG Tablet Take 1 Tablet by mouth daily. 30 Tablet 12/09/2022 Active Vitamin D, Ergocalciferol, 96673 units Capsule Take 50,000 Units by mouth. 06/26/2023 Active magnesium oxide (MAG-OX) 400 (240 Mg) MG Tablet 12/13/2023 Active pregabalin (LYRICA) 150 MG Capsule Take 150 mg by mouth. 10/24/2023 Active escitalopram (LEXAPRO) 10 MG Tablet Take 10 mg by mouth daily. 10/24/2023 Active levothyroxine (SYNTHROID) 137 MCG Tablet TAKE 1 TABLET(137 MCG) BY MOUTH EVERY MORNING 11/05/2023 Active Active Problems Problem Noted Date Diagnosed Date HTN (hypertension) 12/25/2023 Iron deficiency 10/10/2023 Iron deficiency anemia, unspecified 10/10/2023 Encounters Date Type Department Care Team Description 01/02/2024 12:00 PM CDT Clinical Support [facility] [address] [address] [facility] deficiency anemia, unspecified iron deficiency anemia type (Primary Dx) 01/02/2024 Travel 12/29/2023 Telephone [facility] [address] [address] Earline Frankel, LOG SORTING SUPERVISOR, HYBRID TESTER from Last 3 Months Immunizations Immunization Administration Dates Next Due HIB Vaccine (PRP-T) 06/05/2023 Pneumococcal Vaccine Adult - 23 Valent 1 Family History Medical History Relation Name Comments Cardiomyopathy Father Pacemaker Father Breast Cancer Mother Relation Name Status Comments Father Mother fibromyalgia Social History Tobacco Use Types Packs/Day Years Used Date Smoking Tobacco: Never Smokeless Tobacco: Never Tobacco Cessation:Counseling Given: Not Answered Alcohol Use Standard Drinks/Week Comments Not Currently 0 (1 standard drink = 0.6 oz pur e alcohol) Comments Unknown Sex and Gender Information Value Date Recorded Sex Assigned at Not on file Legal Sex Female 9:04 AM PLANT SPECIALIST Gender Identity Not on file Sexual Orientation Not on file Last Filed Vital Signs Vital Sign Reading Time Taken Comments Blood Pressure 156/90 12/25/2023 11:01 AM CDT Pulse 78 12/25/2023 11:01 AM CDT Temperature 37 ??C (98.6 ??F) 12/25/2023 11: 01 AM CDT Respiratory Rate 18 12/25/2023 11:0 1 AM CDT Oxygen Saturation 96% 12/25/2023 11: 01 AM CDT Inhaled Oxygen Concentration - - Weight 113.4 kg (249 lb 14.4 oz) 2023 11:01 AM CDT Height 167.6 cm (5' 6 ) 12/25/2023 11:0 1 AM CDT Body Mass Index 40.33 12/25/2023 11:01 AM CDT Plan of Treatment Health Maintenance Due Date Last Done Comments TdaP Immunization 1965 Pap Smear 09/26/1984 Cervical Cancer Screening (CCS) 09/26/1993 HPV/Cotest 09/26/1993 Colonoscopy 09/26/2008 Colorectal Cancer Screening 09/26/2008 Cologuard 09/26/2013 Immunochemical Fecal Occult Blood 09/26/2013 Zoster Immunization (1 of 2) 09/26/2013 Hepatitis B Immunization (1 of 3 - Risk 3-dose series) 2023 Respiratory Syncytial Virus (RSV) Immunization (Adult) (1 - Risk 60-74 years 1-dose series) 2023 Influenza Immunization (#1) 2023 SARS-COV-2 Immunization (1 - season) 2023 Mammogram 01/29/2025 01/29/2023, 01/29/2023 Pneumococcal Immunization (5 0+ years) (3 of 3 - PCV20 or PCV21) 09/21/2025 09/21/2020, 03/19/2018 Hepatitis C Virus (HCV) Screening Completed 05/07/2018 Pneumococcal Immunization Combined Discontinued 09/21/2020, 03/19/2018 Meningococcal Immunization (ACWY) Aged Out No longer eligible based on patient's age to complete this topic Rotavirus Immunization Aged Out No lo nger eligible based on patient's age to complete this topic Insurance MEDICARE MEDICAID [place] MEDICARE C [employer] MEDICAID [place] Care Teams Alliance Director Relationship Specialty Start Date End Date Amor Arboleda DO [address] [place] [address] PCP - General Family Medicine 09/12/23 Osvaldo Dawson DO Gastroenterology 04/22/17 Jemma Guardado MD [address] [place] [id number] Consulting Physician Oncology 12/09/22
--- OUTSIDE RECORDS SUMMARY | 2024-03-27 07:30 | XMS_ITS | Encounter Summary ---
Author Organization [facility] Address [address] [place] [address] Care Team Providers Care Tank Operator Name Role Phone Amor Arboleda DO Primary Care Provider + Nelly Ozuna APRN-BALLISTICS TEACHER Unavailable [phone] Amor Arboleda DO Primary Care Provider + Reason for Visit * Reason Onset Date Comments MEDICATION REFILL 09/12/2020 Encounter Details Date Type Department Care Team (Late st Contact Info) Description 09/12/[address] [address] Amor Farley, DO [address] [place] [phone] MEDICATION REFILL Social History Tobacco Use Types [...] (Latest Contact Info) Description 04/26/2024 7:00 AM MANAGER OF MEDICAL Appointment [facility] [address] [place] [address] Dewey Villaseñor MD [address] [place] [address] [address] [place] [address] 04/26/2024 8:00 AM MANAGER OF MEDICAL Office Visit [facility] [place] [address] [place] [address], [place] [id number] Dagoberto Walker MD [address] [place] [address] [address] [place] [address] 05/14/2024 9:15 AM CDT Hospital Encounter [facility] ENDOSCOPY [address] [place] [address] Douglas Gomez MD [address] [place] [phone] Surgery General 05/14/2024 9:15 AM CDT - 05/14/2024 10:[address] [facility] ENDOSCOPY [address] [place] [address] Douglas Gomez MD [address] [place] [phone] COLONOSCOPY SCREEN w/ extended prep Scheduled Procedures [...] dose Safety General On track( 10:49 AM MANAGER OF MEDICAL) No Arleth Mcghee, ABRIL Note: Expected end [...] Under Investigation 03/07/2023 03/07/2023 03/07/2023 4:14 PM MANAGER OF MEDICAL documented as of this encounter Care Teams Tank Operator Relationship Specialty Start Date End Date Amor Arboleda DO [address] [place] [id number] PCP - General 11/12/19 10/24/21 Amor Arboleda DO [address] [place] [address] PCP - General Family Medicine Geriatric Medicine 12/03/22 Nelly Ozuna APRN-BALLISTICS TEACHER [address] [place] [address] Nurse Practitioner Nurse Practitioner 06/19/20 documented as of this encounter
--- OUTSIDE RECORDS SUMMARY | 2024-03-27 07:30 | XMS_ITS | Clinical Summary ---
Author Organization [facility] Address [address] [place]: Epic Prelude ADT [place] [address] Care Team Providers Care Decorative Engraver Name Role Phone Unavailable Primary Care Provider Unavailabl e Social History Tobacco Use Types Packs/Day Years Used Date Smoking Tobacco: Never Assessed Comments Unknown Sex and Gender Information Value Date Recorded Sex Assigned at Not on file Legal Sex Female 4:25 AM CARE INFORMATION ASSOCIATE Gender Identity Not on file Sexual Orientation Not on file Plan of Treatment Health Maintenance Due Date Last Done Comments DTAP/TDAP/TD VACCINES (1 - Tdap) 09/26/1982 CERVICAL CANCER SCREENING 09/26/1993 BREAST CANCER SCREENING 2003 COLORECTAL SCREENING 09/26/2008 Colorectal Cancer Screening 09/26/2008 FIT-DNA Q 3 years 09/26/2008 FIT/FOBT Q 1 year 09/26/2008 Flex Sig/CT Colonography Q 5 years 09/26/2008 ZOSTER VACCINE (1 of 2) 09/26/2013 INFLUENZA VACCINE (#1) 2023 RSV VACCINE (60+ or ) (1 - 1-dose 75+ series) 09/26/2038 HEPATITIS B VACCINES Aged Out No long er eligible based on patient's age to complete this topic PNEUMOCOCCAL VACCINE 0-64 YEARS Aged Out No longer eligible based on patient's age to complete this topic
--- OUTSIDE RECORDS SUMMARY | 2024-03-27 07:30 | XMS_ITS | Clinical Summary ---
Author Organization [facility] Address [address] [place] [address]. [place], [place] [address] [place] [id number] Care Team Providers Care Abrasive Mixer Helper Name Role Phone Jiantaishaurbanoblanco Fran P Primary Care Provider + Allergies No known active allergies Medications ferrous sulfate, 65 mg elemental, 325 (65 FE) MG tablet Take 3 tablets (975 mg total) by mouth. Active hydrOXYzine 10 MG tablet TAKE 1 TABLET BY MOUTH EVERY NIGHT NEEDED FOR ITCHING 05/30/19 22 Active rizatriptan 10 MG tabletIndications: Migraine without status migrainosus, not intractable, unspecified migraine type Take 1 tablet (10 mg total) by mouth as needed for Migraine (max of 2 tablets daily). 30 tablet 5 06/26/19 22 Active spironolactone (ALDACTONE) 100 MG tabletIndications: Primary hypertension TAKE 2 TABLETS BY MOUTH EVERY DAY 90 tablet 1 09/28/19 22 Active diclofenac sodium (VOLTAREN) 1 % gelIndications:Rhe umatoid arthritis, involving unspecified site, unspecified whether rheumatoid factor present ([facility] HHS/HCC) APPLY 2 TO 4 GRAMS ON THE SKIN TWICE DAILY FOR PAIN Strength: 1 % 100 g 2 02/15/20 22 Active triamcinolone (KENALOG) 0.1 % creamIndications:E czema, unspecified type APPLY TOPICALLY TO THE AFFECTED AREA TWICE DAILY 45 g 09/12/19 23 Active furosemide (LASIX) 40 MG tabletIndications: Chronic congestive heart failure, unspecified heart failure type (CMS/[facility] HHS/HCC),Nonalcoho lic steatohepatitis (FOX),Ruby-Linden ss tear Take 2 tablets (80 mg total) by mouth daily. 180 tablet 1 10/16/19 Active rifAXIMin (XIFAXAN) 550 MG Tab Take 1 tablet (550 mg total) by mouth 2 (two) times daily. Active potassium chloride CR (KLOR-CON M) 10 MEQ tabletIndications: Primary hypertension Take 2 tablets (20 mEq total) by mouth daily. 100 tablet 2 11/28/19 23 Active pantoprazole EC (PROTONIX) 40 MG tabletIndications: Gastroesophageal reflux disease, unspecified whether esophagitis present take 1 tablet by mouth daily 100 tablet 05/19/19 24 Active methocarbamol (ROBAXIN) 500 MG tabletIndications: Chronic pain of both knees Take 2 tablets (1,000 mg total) by mouth 3 (three) times daily. 90 tablet 06/18/19 24 Active Nutritional Supplements (ENSURE HIGH PROTEIN) Liquid Take 3 Bottles by mouth. 06/19/19 24 Active ondansetron (ZOFRAN-ODT) 4 MG disintegrating tablet Take 1 tablet (4 mg total) by mouth. 09/15/19 23 Active Vitamin D, Ergocalciferol, 49189 units Cap Take 50,000 Units by mouth once a week. 06/26/19 24 Active pregabalin (LYRICA) 150 MG capsuleIndications :Neuropathy Take 1 capsule (150 mg total) by mouth 2 (two) times daily. 60 capsule 2 10/24/19 24 Active PEG 3350 and electrolytes (GAVILYTE-C) 240 g Recon Soln solution Drink half the prep at 5 pm the evening prior to the procedure. Finish the remaining prep at 4 am the morning of the procedure. 12/29/19 24 Active levothyroxine (SYNTHROID) 137 MCG tabletIndications: Elevated TSH TAKE 1 TABLET(137 MCG) BY MOUTH EVERY MORNING 90 tablet 1 01/27/20 24 Active magnesium oxide (MAG-OX) 400 (240 Mg) MG tabletIndications: Hypomagnesemia TAKE 1 TABLET(400 MG) BY MOUTH DAILY 30 tablet 02/24/20 24 Active escitalopram (LEXAPRO) 10 MG tabletIndications: Current moderate episode of major depressive disorder, unspecified whether recurrent (CMS/HCC HHS/HCC) TAKE 1 TABLET(10 MG) BY MOUTH DAILY 30 tablet 2 02/26/20 24 Active amLODIPine (NORVASC) 5 MG tabletIndications: Primary hypertension TAKE 1 TABLET(5 MG) BY MOUTH DAILY 30 tablet 03/25/19 25 Active amLODIPine (NORVASC) 5 MG tabletIndications: Primary hypertension TAKE 1 TABLET(5 MG) BY MOUTH DAILY 30 tablet 2 12/25/19 24 2024 Discontinued Active Problems Problem Noted Date Diagnosed Date Esophageal varices ([facility]) 04/17/2023 CHF (congestive heart failure) ([facility]) 10/15/2022 Coagulopathy ([facility]) 09/19/2022 Acute blood loss anemia 09/18/2022 Ruby-Vang tear 09/18/2022 Upper GI bleed 09/17/2022 Current moderate episode of major depressive disorder, unspecified whether recurrent ([facility]) 11/07/2021 Osteoarthritis (arthritis due to wear and tear o f joints) 07/24/2021 Acute cystitis 06/25/2021 Anemia 06/25/2021 Adult hypothyroidism 06/25/2021 Anxiety 06/25/2021 Asthma ([facility]) 06/25/2021 Calculus of kidney 06/25/2021 Calculus of ureter 06/25/2021 Cervical strain 06/25/2021 Epigastric abdominal pain 06/25/2021 IBS (irritable bowel syndrome) 06/25/2021 Portal vein thrombosis 06/25/2021 Sepsis ([facility]) 06/25/2021 UTI (urinary tract infection) 06/25/2021 Pre-transplant evaluation for liver transplant 0 10/21/2019 Overview (10/21/2019): Liv Delong 52y : 63 Dx: FOX MELD: 8 (10/13/18) Referring MD: Carmen Cunningham MD: Tristen Hx: Ms. 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 The PAS-D stain is negative for [id number] globules. The iron stain is negative. The [...] Discharge patient to home. Colonoscopy: h/o VENESSA 1991 needs rpt Mammo: needs Pap: needs WW exam or pap if she has a cervix SW: 04/20/18 Clinical Social Work Impression: It is the impression of this group social worker that Liv Delong has several positive factors for Liver transplant candidacy including knowledge of illness, sufficient insurance coverage, stable financial situation for post transplant needs, no concerns regarding substance abuse. ?? Patient must identify adequate support system and appropriate discharge plan prior to listing. SW informed coordinator of patient's methadone use for fibromyalgia. ?? Plan: deli worker to provide supportive services as needed. Patient appears to be a reasonable candidate for transplant from a psychosocial perspective, pending: ?? - Post transplant arrangement forms are needed prior to being listed with confirmation. ? Psychiatric Consult Recommended: No ?? Transplant Concrete Saw Operator: Brittany Michael LMSW RD: 04/20/18 Nutrition concerns: Pt gripped weak for age and gender at 22.[address] Free Nutrition score was 2, high nutrition [...] time. 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 10/04/16 liver biopsy: established cirrhosis without steatosis or ballooning. Some inflammation but no predominance of plasma cells or bile duct injury. Iron deficiency anemia 08/27/2016 Depression 12/08/2014 Fibromyalgia 12/08/2014 Hyperlipidemia 12/08/2014 Type 2 diabetes mellitus ([facility]) 12/08 Resolved Problems Problem Noted Date Diagnosed Date Resolved Date Multiple fractures of ribs of right side 06/18/2023 06/18/2023 Cerebrovascular accident (CV A) ([facility]) 11/27/2022 11/27/2022 Acute respiratory failure wi th hypoxia ([facility]) 09/18/2022 11/27/2022 Lupus 09/21/2020 11/27/2022 Rheumatoid arthritis, involv ing unspecified site, unspecified whether rheumatoid factor present ([facility]) 09/21/2020 11/27/2022 Decompensated hepatic cirrho sis ([facility]) 12/24/2018 09/24/2020 Encounters Date Type Department Care Team Description 01/02/2024 9:20 AM CDT Office Visit [facility] [address] [id number] Fran Hudson, DO Diabetes (6 month follow up. ); Fatigue (The patient states she is still having fatigue and SOB which has been discussed in the past. ) 01/02/2024 Travel from Last 3 Months Immunizations Name Administration Dates Next Due Hib (Omni-Hib) 06/05/2023 Hib Vaccine, Prp-T 03/19/2018 Meningococcal B 03/19/2018 Pneumococcal (Pneumovax 23) 09/21/2020 Pneumococcal (Prevnar 13) 03/19/2018 Family History Medical History Relation Comments Asthma Brother 1 Migraines/Headaches Brother 1 Mental Health Brother 2 Migraines/Headaches Brother 2 Early Father Heart Disease Father Arthritis Mother Breast Cancer Mother Fibromyalgia Mother Stroke Mother Migraines/Headaches Sister 1 Migraines Sister 2 Relation Status Comments Brother 1 Brother 2 Father Mother Alive Sister 1 Sister 2 Social History Tobacco Use Types Packs/Day Years Used Date Smoking Tobacco: Never Passive Smoke Exposure: Never Smokeless Tobacco: Never Tobacco Cessation:Counseling Given: No Comments:NA Alcohol Use Standard Drinks/Week Comments Never 0 (1 standard drink = 0.6 oz pur e alcohol) AUDIT-C Answer Date Recorded Q1: How often do you have a drink containing alc ohol? Never 10/21/2019 Average Number of Drinks Not on file 020 Frequency of Binge Drinking Not on file 10/02 PHQ-2 Answer Date Recorded Patient Health Questionnaire-2 Score 0 06/18/2023 Comments No Sex and Gender Information Value Date Recorded Sex Assigned at Not on file Legal Sex Female 1:38 PM CDT Gender Identity Not on file Sexual Orientation Not on file Last Filed Vital Signs Vital Sign Reading Time Taken Comments Blood Pressure 138/76 01/02/2024 9:29 AM CDT Pulse 84 01/02/2024 9:29 AM CDT Temperature 36.8 ??C (98.3 ??F) 01/02/2024 9:29 AM CD T Respiratory Rate 16 01/02/2024 9:29 AM CDT Oxygen Saturation 97% 01/02/2024 9:29 AM CDT Inhaled Oxygen Concentration - - Weight 112.2 kg (247 lb 4.8 oz) 01/02/2024 9:29 AM CDT Height 167.6 cm (5' 6 ) 01/02/2024 9:29 AM CDT Body Mass Index 39.92 01/02/2024 9:29 AM CDT Plan of Treatment Health Maintenance Due Date Last Done Comments Kidney Health Evaluation 1965 Annual Physical 09/26/1966 Colorectal Cancer Screening Colonoscopy (10 Years) 07/04/2023 Diabetes: Retinopathy Eye Exam 10/27/2023 10/26/2021 Influenza Adult (#1) 2023 DTaP, Tdap and Td Vaccines (1 - Tdap) 06/17/2024 Postponed from 09/26/1982 (Patient Refused) Lipid Panel 06/17/2024 06/18/2023, 09/26/2020 PHQ-2 (Physician Westhoff) 06/17/2024 06/18/2023 Zoster Vaccines (1 of 2) 06/17/2024 Pos tponed from 09/26/2013 (Patient Refused) Hemoglobin A1C 07/01/2024 01/02/2024, 07/0 04/2023, 04/03/2023, Additional history exists RSV Immunization or 60+ Years (1 - Risk 60-74 years 1-dose series) 10/23/2024 Postponed fro m 2023 (Going to Outside Clinic) COVID-19 Vaccine ( - season) 2025 Postponed from 11/02/2023 (Patient Refused) Mammogram Screening 01/29/2025 01/29/2023, 9 Pneumococcal Vaccine: Pediatrics (0 to 5 Years) and At-Risk Patients (6 to 64 Years) (3 of 3 - PPSV23 or PCV20) 09/26/2028 09/21/2020, 03/19/2018 Meningococcal Vaccine Aged Out 03/19/2018 No isabella vanessa eligible based on patient's age to complete this topic Hepatitis C Completed 05/14/2019, 05/07/2018 Meningococcal B Vaccine Aged Out No l onger eligible based on patient's age to complete this topic RSV Immunizations Under 20 Months Aged Out No longer eligible based on patient's age to complete this topic Procedures Procedure Name Priority Date/Time Associated Diagnosis Comments COLLECT.CAPILLARY (FNGR,HEEL,EAR) Routine 01/02/2024 9:21 AM CDT Type 2 diabetes mellitus with diabetic polyneuropathy, without long-term current use of insulin ([facility]) HEMOGLOBIN, GLYCOSYLATED Routine 01/02/2024 Type 2 diabetes mellitus with diabetic polyneuropathy, without long-term current use of insulin ([facility]) LIPID PANEL Routine 06/18/2023 11:57 AM CDT Type 2 diabetes mellitus with diabetic polyneuropathy, without long-term current use of insulin (CMS/HCC HHS/HCC) Current moderate episode of major depressive disorder, unspecified whether recurrent (CMS/HCC HHS/HCC) 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 (CMS/HCC HHS/HCC) MG SCREENING W ANGEL PADMINI DIGI Routine 01/29/2023 11:27 AM SUPERINTENDENT COMMUNICATIONS Breast cancer screening by mammogram DIABETIC RETINOPATHY EXAM (NEGATIVE)(SCAN ORDER) Routine 10/26/2021 HEP C SCANNED ORDERS Routine 05/14/2019 from Last 3 Months or Most Recently Relevant to Health Maintenance Results * HEMOGLOBIN, GLYCOSYLATED (01/02/2024) HGB A1C 5.2 % [facility] 01/02/2024 us Fran Hudson DO LABORATORY Final Re sult [facility] [address] [place] [address], * (ABNORMAL) LIPID PANEL (06/18/2023 11:57 AM CDT) CHOLESTEROL 135 <200 MG/DL 06/18/2023 7:44 PM CDT [facility] TRIGLYCERIDES 34 <150 MG/DL 06/18/2023 7:44 PM CDT [facility] HDL 27(L) >40 MG/DL 06/18/2023 7:44 PM CDT [facility] LDL-C 101(H) <100 MG/DL 06/18/2023 7:44 PM CDT [facility] VLDL CALCULATION 7 5 - 28 MG/DL 06/18/2023 7:44 PM CDT [facility] CHOL/HDL RATIO 5.0(H) 0.0 - 4.0 06/18/2023 7:44 PM CDT [facility] LDL/HDL 3.7(H) 0.41 - 2.13 06/18/2023 7:44 PM CDT [facility] NON HDL CHOLESTEROL 108 <140 MG/DL 06/18/2023 7:44 PM CDT [facility] 06/18/2023 11:5 7 AM CDT Fran Hudson DO LABORATORY Final Re sult -[facility] [place] [address] [place] [address], [place] [phone] * MG SCREENING W ANGEL PADMINI DIGI (01/29/2023 11:27 AM SUPERINTENDENT COMMUNICATIONS) Anatomical Region Laterality Modality Breast Bilateral Mammography 01/31/2023 2:58 PM SUPERINTENDENT COMMUNICATIONS Narrative 01/31/2023 3:01 PM SUPERINTENDENT COMMUNICATIONS EXAMINATION: MG SCREENING W ANGEL PADMINI DIGI ? INDICATIONS: Screening TECHNIQUE: Digital full field CC and MLO screening mammography bilaterally to include 3-D Tomosynthesis technique. This study was read with the assistance of a computer-aided detection system. HISTORY: Family history of breast cancer in mother at age 50. Prior right breast biopsy. No documented personal history of breast cancer or current breast complaint. COMPARISON: 09/23/2013 and, 09/10/2013, 09/22/2012 TISSUE DENSITY: The breast tissue is heterogeneously dense, which may obscure small masses. FINDINGS: Right breast biopsy clip. Few scattered typically benign round and rim calcifications. No suspicious microcalcification or mass. No developing asymmetry or architectural distortion. No axillary adenopathy. IMPRESSION: ??No significant interval change. No mammographic evidence of malignancy. ? RECOMMENDATION: ??Routine ScreeningBilateral OVERALL IMAGING ASSESSMENT: ACR BI-RADS 2 - BENIGN FINDING(S). ?? Ordered By: FRAN HUDSON Interpreted By: Ruperto Mi, 01/31/2023 2:58 PM Fran Hudson DO MAMMO Final Re sult * DIABETIC RETINOPATHY EXAM (NEGATIVE)(SCAN) (10/26/2021) us Documents Scanned SCANNING Final Result [facility] * HEP C SCANNED ORDERS (05/14/2019) us Documents Scanned SCANNING Final Result [facility] from Last 3 Months or Most Recently Relevant to Health Maintenance Insurance Care Teams Abrasive Mixer Helper Relationship Specialty Start Date End Date Fran Hudson DO [address] [place] [address] [id number] PCP - General FAMILY PRACTICE 10/21/19
--- OUTSIDE RECORDS SUMMARY | 2024-03-27 07:30 | XMS_ITS | Data Portability ---
Author Organization Christine MARINO Address [address] [place] [id number] Assessment Encounter Date Assessment Date Assessment LastModified by Organization Details LastModified Time 09/17/2018 09/17/2018 had mammogram an d colonoscopy in last 6 months. has had hysterectomy and cholecystectomy and surgery for AAA..Nonsmoker, nondrinker [email or web address] Not available 09/17/2018 16:35:39 Plan of Treatment Reminders Order Date Submit Date Provider Last Modified By Organization Details Last Modified Time Details Appointments None record ed. Lab None record ed. Referral None record ed. Procedures None record ed. Surgeries None record ed. Imaging None record ed. Medication Orders None record ed. Patient TargetsNo targets recorded. Patient InstructionsNo instructions recorded. Reason for Referral None Reported. Problems Name Problem SNOMED Code Status Onset Date Resolution Date Notes Provider Name and Address Organization Details Recorded Time Hypothyroidism 64908120 Active 2018 CRESC[place]IO [place], [place] - [facility] 16:00:38 Fibromyalgia 243527553 Active 2018 CRES[place]IO [place], [place] - [facility] 16:00:47 Lupus erythematosus 770353492 Active 2018 [place] [facility] 16:01:00 Chronic fatigue syndrome 89928414 Active 2018 CR[place] - [facility] 16:01:15 Restless legs 05883723 Active 2018 CRESCENCIO [place], [place] - [facility] 16:01:27 Congestive heart failure 32128391 Active 2018 CRESCENCIO [place], [place] - [facility] 16:01:39 Neuropathy 032547566 Active 2018 CRESCENCIO [place], [place] - [facility] 9 16:01:52 Rheumatoid arthritis 35059769 Active 2018 CRESCENCIO [place], [place] - [facility] 9 16:02:12 Problem Notes None recorded. Medical Equipment None Reported. Allergies Allergen ID Allergen Name Allergen Category Reaction Reaction Severity Criticality Documentation Date Start Date Code Code System Note Provider Name and Address Organization Details Recorded Time [id number] fentanyl medicatio n Not available Not available Not available 09/17/2018 4337 RxNorm Not Available Not Available Not Available Medications Name Sig Start Date Stop Date Status Note LastModified by Organization Details LastModified Time warfarin sodium 5 mg tabs active Not Available Not Available Not Available cefdinir 300 mg caps 09/17 completed Not Available Not Available Not Available furosemide 80 mg tabs active Not Available Not Available N ot Available warfarin sodium 2 mg tabs active Not Available Not Available Not Available levothyroxi ne sodium 112 mcg tabs 09/17 completed Not Available Not Available Not Available generlac 10 gm/15ml soln 09/17 completed Not Available Not Available Not Available furosemide 20 mg tabs 09/17 completed Not Available Not Available Not Available levothyroxi ne sodium 100 mcg tabs 09/17 completed Not Available Not Available Not Available duloxetine hcl 30 mg cpep 09/17 completed Not Available Not Available Not Available cyclobenzap rine hydrochlori de 10 mg tabs active Not Available Not Available Not Available amlodipine besylate 5 mg tabs active Not Available Not Available Not Available potassium chloride er 10 meq cpcr active Not Available Not Available Not Available furosemide 40 mg tabs 09/17 completed Not Available Not Available Not Available methadone hcl 10 mg tabs 09/17 completed Not Available Not Available Not Available potassium chloride cr 10 meq tbcr 09/17 completed Not Available Not Available Not Available levothyroxi ne sodium 125 mcg tabs active Not Available Not Available Not Available spironolact one 50 mg tabs 09/17 completed Not Available Not Available Not Available methadone hydrochlori de 5 mg tabs 09/17 completed Not Available Not Available Not Available rizatriptan benzoate odt 10 mg tbdp active Not Available Not Available Not Available methadone hcl 5 mg tabs 09/17 completed Not Available Not Available Not Available xifaxan 550 mg tabs active Not Available Not Available Not Available gavilyte-g 236 gm solr active Not Available Not Available Not Available gabapentin 100 mg caps active Not Available Not Available Not Available fluocinonid e 0.05 % crea active Not Available Not Available Not Available promethazin e hydrochlori de 25 mg tabs active Not Available Not Available Not Available oxycodone/a cetaminophe n 7.5-325 mgtabs 09/17 completed Not Available Not Available Not Available ibuprofen 600 mg tabs active Not Available Not Available Not Available spironolact one 100 mg tabs active Not Available Not Available Not Available azithromyci n 250 mg tabs 09/17 completed Not Available Not Available Not Available tramadol hcl 50 mg tabs 09/17 completed Not Available Not Available Not Available duloxetine hcl 60 mg cpep 09/17 completed Not Available Not Available Not Available fluticasone propionate 50 mcg/act susp active Not Available Not Available Not Available tradjenta 5 mg tabs 09/17 completed Not Available Not Available Not Available methocarbam ol 500 mg tablet active Not Available Not Available Not Available levothyroxi ne 137 mcg tablet active Not Available Not Available Not Available hydrocodone 5 mg-acetamin ophen 325 mg tablet TAKE 1 TABLET BY MOUTH EVERY 6 HOURS NEEDED FOR PAIN active Not Available Not Available No t Available amlodipine 2.5 mg tablet active Not Available Not Available Not Available amlodipine 5 mg tablet active Not Available Not Available Not Available carvedilol 3.125 mg tablet active Not Available Not Available Not Available magnesium oxide 400 mg (241.3 mg magnesium) tablet active Not Available Not Available Not Available cephalexin 500 mg capsule TAKE 1 CAPSULE BY MOUTH EVERY 6 HOURS FOR 7 DAYS active Not Available Not Available No t Available pantoprazol e 40 mg tablet,sasha yed release active Not Available Not Available Not Available lidocaine 5 % topical patch APPLY 1 PATCH TOPICALLY DAILY. LEAVE ON MOST PAINFUL AREA FOR UP TO 12 HOURS active Not Available Not Available No t Available amoxicillin 875 mg-potassiu m clavulanate 125 mg tablet TAKE 1 TABLET BY MOUTH TWICE DAILY FOR 5 DAYS active Not Available Not Available No t Available escitalopra m 10 mg tablet active Not Available Not Available Not Available pregabalin 150 mg capsule active Not Available Not Available Not Available FeroSul 325 mg (65 mg iron) tablet TAKE 1 TABLET BY MOUTH DAILY active Not Available Not Available No t Available Vitals Date Recorded Body weight Provider Name an d Address Organization Details Last Updated DateTime 09/17/2018 27534.24 g Theresa Lizama MA [facility] 09/17 15:52:29 Date Recorded Body height Body mass index (BMI) Provider Name and Address Organization Details Last Updated DateTime 09/17/2018 167.64 cm 33 kg/m2 Theresa Lizama MA [facility] 09/17/2018 16:12:47 Date Recorded Oxygen saturation Oxygen saturation in Arterial blood by Pulse oximetry Provider Name and Address Organization Details Last Updated DateTime 09/17/2018 98 % 98 % Theresa Lizama MA [facility] 09/17/2018 16:13:42 Date Recorded Heart rate Provider Name an d Address Organization Details Last Updated DateTime 09/17/2018 78 /min Theresa Lizama MA [facility] 09/17 16:13:58 Date Recorded Body temperature Provider Name a nd Address Organization Details Last Updated DateTime 09/17/2018 98.8 [degF] Theresa Lizama MA [facility] 09/17/2018 16:14:26 Date Recorded Systolic blood pressure Diastolic blood pressure Provider Name and Address Organization Details Last Updated DateTime 09/17/2018 110 mm[Hg] 60 mm[Hg] Theresa Lizama MA [facility] 09/17/2018 16:15:41 Social History Question Answer Notes LastModified by Organizat ion Details LastModified Time Tobacco Smoking Status Never Smoker Theresa Lizama MA [facility] 09/17/2018 16:06:24 What Is Your Level Of Alcohol Consumption? None Information not available 09/17/2018 What Is Your Level Of Caffeine Consumption? Occasional Information not available 09/17/2018 How Much Tobacco Do You Chew? None Information not available 09/17/2018 Which Illicit Or Recreational Drugs Have You Used? None Information not available 09/17/2018 What Was The Date Of Your Most Recent Tobacco Screening? 09/17/2018 Information not available 09/24/2018 Sex: Unknown Functional Status None recorded. Mental Status None recorded. Family History Relationship Description Onset Age of this Age Resolved Age Notes LastModified by Organization Details LastModified Time Brother Asthma [email or web address] Not availab le 09/17/2018 16:03:04 Brother Depressive disorder [email or web address] Not available 08/31 16:04:01 Brother Migraine [email or web address] Not avail able 09/17/2018 16:05:49 Father Cerebrovascu lar accident [email or web address] Not available 0 09/17/2018 16:03:27 Father Heart disease [email or web address] Not available 08/31 16:04:54 Father Myocardial infarction [email or web address] Not available 16:06:07 Mother Cerebrovascu lar accident [email or web address] Not available 0 09/17/2018 16:03:27 Mother Dementia [email or web address] Not availa ble 09/17/2018 16:03:46 Mother Depressive disorder [email or web address] Not available 08/31 16:04:12 Mother Hypertensive disorder [email or web address] Not available 08/31 16:05:10 Mother Malignant tumor of breast [email or web address] Not available 08/31 16:05:28 Mother Migraine vlavenderma Not availa ble 09/17/2018 16:05:49 Paternal Grandfather Heart disease [email or web address] Not available 08/31 16:04:54 Paternal Grandfather Myocardial infarction [email or web address] Not available 16:06:07 Paternal Grandmother Heart disease [email or web address] Not available 08/31 16:04:54 Paternal Grandmother Myocardial infarction [email or web address] Not available 16:06:07 Sister Migraine vlavenderma Not availa ble 09/17/2018 16:05:49 Medical History Condition Response Coronary Artery Disease N Other N High Blood Pressure N Atrial Fibrillation N Kidney or Bladder Problems N Thyroid Problems Y GI Problems Y Depression N COPD N Blood Clots Y Skin Problems N Anemia Y Heart Attack (PR) N Anxiety Disorder Y Diabetes N Muscle, Joint, or Bone Problems Y Seizures/Epilepsy N Acid Reflux (GERD) Y Cancer N Stroke Y Asthma N Allergies Y High Cholesterol N Hepatitis N Liver Disease Y Headaches Y Heart Failure Y Osteoporosis N Gynecological HistoryNo gynecological history recorded. 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 [facility] and is on the transplant list. Has 2 masses in liver Health Concerns Section Related Observation LastModified by Organization Detai ls LastModified Time None Recorded Concern Status LastModified by Organization Details LastModified Time None Recorded Advance Directives Directive None Recorded Payers Encounter Date Sequence Insurance Name Policy Number Policy Damian Covered Member ID Damian Member ID Guarantor Name 09/17/2018 1 MEDICARE-ID (MEDICARE) Liv Delong [id number] Liv Delong Notes Date Note Type Note Provider Name and Address Organization Details Recorded Time 09/17/2018 text/html Patient has had extensive workups in the past year and is 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 She has had multiple hospitalizations for hepatic encephalopathy. She is also on chronic warfarin therapy. Sinai Arreguin MD Attn: Accounting,[address] [facility], [place], [address], [place] - [facility] 09/20/2018 17:34:09 OBGyn Episode No OBEpisode recorded.
--- OUTSIDE RECORDS SUMMARY | 2024-03-27 07:30 | XMS_ITS | Patient Health Record ---
Author Organization [facility] mikey/William Ochoa MD Address [address], [address] [place] [address] Care Team Providers Care Nurses Aide Name Role Phone N/A, PCP Primary Care Provider William Caro Unavailable [phone] Allergies Allergen (clinical drug ingredient) Drug/Non Drug Allergy documented on EMR Reaction Allergy Type Onset Date Status fentanyl Fentanyl Unknown Drug Allergy Active Reason For Referral No Information Medications Medication SIG (Take, Route, Frequency, Duration) Notes Start Date End Date Status Simvastatin 40mg Not -Taking Furosemide Not-Takin g potassium Not-Taking amLODIPine Besylate 5mg Not-Taking Methadone HCl 10 MG Orally Not-Taking Zolpidem Tartrate No t-Taking Cymbalta Active Xanax Not-Taking Lasix Not-Taking ALPRAZolam Active DULoxetine HCl Activ e Maxalt 10mg Not-Taki ng Prednisone 10mg as directed orally 4 tablets qAM for 3 days, 3 tablets qAM for 3 days, 2 tablets qAM for 3 days, 1 tablet qAM for 3 days for 12 days 12/15/2013 Not-Taking Spironolactone Activ e Promethazine HCl Act bryn Cefdinir Active Problems Problem Type SNOMED Code ICD Code Onset Dates Problem Status W/U Status Risk Notes Problem Chronic pain syndrome (279110094) Chronic pain syndrome (338.4) Active confirmed Problem Systemic lupus erythematosus (05978147) Systemic lupus erythematosus (710.0) Active confirmed Problem Rheumatoid arthritis (02859562) Rheumatoid arthritis (714.0) Active confirmed Problem Osteoarthritis (312212621) Multiple Sites OA (715.90) Active confirmed Problem Chronic pain syndrome (761454258) Chronic pain syndrome (G89.4) Active confirmed Problem Osteoarthritis (491481869) Polyosteoarthrit is, unspecified (M15.9) Active confirmed Problem Primary osteoarthritis (649318511) Unilateral primary osteoarthritis, right knee (M17.11) Active confirmed Problem Systemic lupus erythematosus (39981173) Systemic lupus erythematosus, unspecified (M32.9) Active confirmed Problem Fibromyalgia (992917244) Fibromyalgia (M79.7) Active confirmed Plan Of Treatment No Information Insurance Providers Payer Name Payer Address Payer Phone Subscriber Number Group Number Insured Name Patient Relationship to Insured Coverage Start Date Coverage End Date Medicare [address] [address] [place] [address] [id number] Mishra Self - patient is the insured Medical (General) History Medical History History ICD Code high blood pressure Gout thyroid trouble cellulitits Cirhrosis of the Liver Surgical History Surgery Date(Month/Year) section ovarian tumor removal ovarian cyst removal Heart Cathorization
--- OUTSIDE RECORDS SUMMARY | 2024-03-27 07:30 | XMS_ITS | Encounter Summary ---
Author Organization [facility] Address [address] [place] [address]. [place], [place] [id number] [place] [address] Care Team Providers Care Punchboard Stuffer Name Role Phone Amor Arboleda DO Primary Care Provider + Encounter Details Date Type Department Care Team (Late st Contact Info) Description 08/28/2022 MyChart Message Enc [facility] [address] [place] [address] [facility] Provider Air Quality Message Social History Tobacco Use Types Packs/Day Years Used Date Smoking Tobacco: Never Smokeless Tobacco: Never Alcohol Use Standard Drinks/Week Comments Never 0 (1 standard drink = 0.6 oz pur e alcohol) AUDIT-C Answer Date Recorded Q1: How often do you have a drink containing alc ohol? Never 10/21/2019 Average Number of Drinks Not on file 020 Frequency of Binge Drinking Not on file 10/02 PHQ-2 Answer Date Recorded Patient Health Questionnaire-2 Score 1 04/02/2022 Comments No Sex and Gender Information Value Date Recorded Sex Assigned at Not on file Legal Sex Female 1:38 PM CDT Gender Identity Not on file Sexual Orientation Not on file documented as of this encounter Plan of Treatment Not on file documented as of this encounter Visit Diagnoses Not on filedocumented in this encounter Additional Health Concerns Assessment Noted Time PHQ-9 Depression Total Score: 12 021 9:17 AM CDT documented as of this encounter Care Teams Punchboard Stuffer Relationship Specialty Start Date End Date Amor Arboleda DO NPI: [id number] [place] [id number] PCP - General FAMILY PRACTICE 10/21/19 documented as of this encounter
--- OUTSIDE RECORDS SUMMARY | 2024-03-27 07:30 | XMS_ITS | Clinical Summary ---
Author Organization [facility] [employer] Address [address] [place] [address] Care Team Providers Care Candy Waffle Assembler Name Role Phone Nelly Ozuna CREEL SELECTOR-CERTIFIED WELLNESS PROGRAM COORDINATOR Unavailable [phone] Amor Arboleda DO Primary Care Provider + Source Comments [facility],non-owned Affiliates and Associated Physician Practices is amultiple site organization consisting of ambulatory clinics and hospital sitesin [place], [place], [place] and [place]. This disclosure is being madepursuant to the Care Everywhere program and may not contain all information available regarding this patient. Last updated 17.[facility] Allergies No known active allergies Medications * [...] mL 1 06/19/2023 Active Vitamin D, Ergocalciferol, 00019 units CAPSIndications:V itamin D Deficiency Take 1 [...] is here for f/u after hospitalization at [facility] (03/15-03/27/18) for abdominal pain 2/2 hemoperitoneum with [...] cirrhosis. The PAS-D stain is negative for gskbx-2-reczbpnkoxr globules. The iron stain is negative. The [...] Impression: It is the impression of this social science manager that Livsusana Delong has several positive factors for Liver transplant candidacy including knowledge of illness, sufficient insurance coverage, stable financial situation for post transplant needs, no concerns regarding substance abuse. ?? Patient must identify adequate support system and appropriate discharge plan prior to listing. SW informed coordinator of patient's methadone use for fibromyalgia. ?? Plan: turn down worker to provide supportive services as needed. Patient appears to be a reasonable candidate for transplant from a psychosocial perspective, pending: ?? - Post transplant arrangement forms are needed prior to being listed with confirmation. ? Psychiatric Consult Recommended: No ?? Transplant Pantographer: Brittany Michael LMSW RD: 04/20/18 Nutrition concerns: Pt gripped weak for age and gender at 22.8 kg. Pt's [facility] Nutrition score was 2, high nutrition risk [...] Pneumonia 05/21/2023 06/18/2023 Anemia, unspecified type 02/15/2023 Encounters Date Type Department Care Team Description 02/13/2024 9:34 AM METAL DRILLING MACHINE OPERATOR Anesthesia Event [facility] ENDOSCOPY [address] [place] [address] Gonzales Irving DO Dobbs, Kristin L, CREEL SELECTOR-ZOË 02/13/2024 9:15 AM METAL DRILLING MACHINE OPERATOR - 02/13/2024 10:00 AM METAL DRILLING MACHINE OPERATOR Surgery [facility] ENDOSCOPY [address] [place] [address] Tahmina Llamas MD COLONOSCOPY SCREEN w/ Walker 02/13/2024 8:00 AM METAL DRILLING MACHINE OPERATOR - 02/13/2024 11:09 AM METAL DRILLING MACHINE OPERATOR Hospital Encounter [facility] OP [address] [place] [address] Tahmina Llamas MD Surgery General Discharge Disposition: Home or Self Care 02/13/2024 Travel 02/10/2024 Patient Outreach [facility] ENDOSCOPY [address] [place] [address] Dena Berger RN 02/05/2024 Orders Only [facility] ENDOSCOPY [address] [place] [address] Taniya Navarro RN 12/29/2023 Orders Only [facility] ENDOSCOPY [address] [place] [address] Taniya Navarro, ABRIL from Last 3 Months Immunizations Name Administration Dates Next Due HIB-PRP-T 4 DOSE 06/05/2023,03/19/2018 Meningococcal B Recombinant 2 Dose, IM 9 PNEUMOCOCCAL PPSV23 09/21/2020 Pneumococcal Pcv13 Conj 03/19/2018 Family History Medical History Relation Name Comments Cardiomyopathy Father Other Father Cancer - Breast Mother Relation Name Status Comments Father Mother Social History Tobacco Use Types Packs/Day Years [...] Date Recorded PHQ2 TOTAL SCORE 2 07/10/2020 [facility] - Occupational [...] place to sleep or slept in a snf (including now)? No 05/11/2023 Sex and Gender Information Value Date Recorded Sex Assigned at Not on file Gender Identity Female 09/25/2017 10:09 AM CDT Sexual Orientation Not on file Last Filed Vital Signs Vital Sign Reading Time Taken Comments Blood Pressure 145/81 02/13/2024 10:30 AM METAL DRILLING MACHINE OPERATOR Pulse 79 02/13/2024 10:45 AM METAL DRILLING MACHINE OPERATOR Temperature 36.5 ??C (97.7 ??F) 02/13/2024 10:[address] Respiratory Rate 9 02/13/2024 10:30 AM METAL DRILLING MACHINE OPERATOR Oxygen Saturation 98% 02/13/2024 10:45 AM METAL DRILLING MACHINE OPERATOR Inhaled Oxygen Concentration 28% 05/23/2023 1 2:31 PM CDT Weight 108.9 kg (240 lb) 02/13/2024 8:21 AM METAL DRILLING MACHINE OPERATOR Height 167.6 cm (5' 6 ) 02/13/2024 8:21 AM METAL DRILLING MACHINE OPERATOR Body Mass Index 38.74 02/13/2024 8:21 AM METAL DRILLING MACHINE OPERATOR Plan of Treatment Upcoming Encounters Date Type Department Care Team (Latest Contact Info) Description 04/26/2024 7:00 AM METAL DRILLING MACHINE OPERATOR Appointment [facility] US [address] [place] [phone] Dewey Villaseñor MD [address] [place] [address] [address] [place] [phone] 04/26/2024 8:00 AM METAL DRILLING MACHINE OPERATOR Office Visit [facility] - GI [address] [place] [address] Dagoberto Walker MD [address] [place] [address] [address] [place] [address] 05/14/2024 9:15 AM CDT Hospital Encounter [facility] ENDOSCOPY [address] [place] [phone] [place] [address] [place] [phone] Surgery General 05/14/2024 9:15 AM CDT - 05/14/2024 10:00 AM CDT Surgery [facility] ENDOSCOPY [address] [place] [phone] Douglas Gomez MD [address] [place] [phone] COLONOSCOPY SCREEN w/ extended prep Scheduled Procedures Name Priority Associated Diagnoses Date/Ti me COLONOSCOPY SCREEN Colon cancer screening Iron deficiency anemia, unspecified iron deficiency anemia type 05/14/2024 9:15 AM CDT Health Maintenance Due Date Last Done Comments COLOGUARD (AGES 45-75) - COLON CA SCREENING 1965 CT COLONOGRAPHY - COLON CA SCREENING 1965 FIT - COLON CA SCREENING 1965 FLEX SIG - COLON CA SCREENING 1965 DTAP/TDAP/TD VACCINES (1 - Tdap) 09/26/1982 PAP with HPV 09/26/1993 DIABETES-STATIN 2003 ZOSTER VACCINE (1 of 2) 09/26/2013 DIABETES RETINOPATHY SCREENING 02/11/2018 DIABETES-FOOT EXAM WITH MONOFILAMENT 02/11/2018 HEPATITIS B VACCINE (1 of 3 - Risk 3-dose series) 2023 Respiratory Syncytial Virus (RSV) Vaccine Pt: or over 60 yrs (1 - Risk 60-74 years 1-dose series) 2023 COVID-19 VACCINE ( season) 2023 INFLUENZA VACCINE (#1) 2023 DEPRESSION SCREENING 03/03/2024 DIABETES - URINE PROTEIN SCREENING 03/03/2024 09/26/2020 MEDICARE AWV ? CALENDAR YEAR 2024 DIABETES-HGB A1C 07/01/2024 01/02/2024, 04/2023, 04/03/2023, Additional history exists DIABETES-SERUM CREATININE 12/24/20242023, 10/15/2023, 10/15/2023, Additional history exists MAMMOGRAM 01/29/2025 01/29/2023, 01/02, 05/05/2018 PNEUMOCOCCAL VACCINE 50+ (3 of 3 - PCV20 or PCV21) 09/21/2025 09/21/2020, 03/19/2018 COLON MONITORING 02/12/2034 02/13/2024, , 07/03/2018, Additional history exists COLONOSCOPY - COLON CA SCREENING 02/12/2034 02/13/2024, 02/13/2024, 07/03/2018, Additional history exists Colorectal Cancer Screening 02/12/2034 MENINGOCOCCAL (Group B) VACCINE Aged Out 03/19/2018 No longer eligible based on patient's age to complete this topic HEPATITIS C SCREENING Completed 05/07/2018 , 07/23/2016, 12/08/2014 HIV SCREENING Completed 06/04/2023, 08/2018, 01/27/2018 HIB VACCINE Aged Out 06/05/2023, 03/19/2018 No lo nger eligible based on patient's age to complete this topic HPV VACCINE Aged Out No longer eligi ble based on patient's age to complete this topic MENINGOCOCCAL VACCINE Aged Out No isabella vanessa eligible based on patient's age to complete this topic Goals Goal Patient Goal Type Associated Problems [...] Safety General On track( 024 10:49 AM METAL DRILLING MACHINE OPERATOR) No Arleth Mcghee, ABRIL Note: Expected end [...] your room Medical Devices Implanted Type Area Balance Truing Inspector Device Identifier Shelf Expiration Date Model / Serial / Lot Coil Concerto Latticefx 8cm 4mm Dtch Pos Implanted:Qty: 1 on 03/19/2023 by Ferny Jesus MD at [facility] Coil Abdomen [employer] 12/10/2025 NV-4-8-HE LIX / / [id number] Coil Concerto Latticefx 10cm 4mm Dtch Implanted:Qty: 1 on 03/19/2023 by Ferny Jesus MD at [facility] Coil Vein [employer] 10/31/2025 NV-4-10-H ELIX / / [id number] Coil Azur Hdrcl 5cm 4mm .038in Dtch Loop Implanted:Qty: 1 on 04/17/2023 by Ferny Jesus MD at [facility] Coil N/A: Esophagus [employer] Ranjan 09/30/2026 [id number] / / [id number] Coil Azur Hdrcl 5cm 4mm .038in Dtch Loop Implanted:Qty: 1 on 04/17/2023 by Ferny Jesus MD at [facility] Coil N/A: Esophagus [employer] Ranjan 12/31/2026 [id number] / / [id number] Coil Azur Cx Hdrcl 8cm 3mm Dtch Loop Sld Implanted:Qty: 1 on 04/17/2023 by Ferny Jesus MD at [facility] Coil N/A: Esophagus [employer] Ranjan 08/31/2027 [id number] / / [id number] Coil Azur Cx Hdrcl 8cm 3mm Dtch Loop Sld Implanted:Qty: 1 on 04/17/2023 by Ferny Jesus MD at [facility] Coil N/A: Esophagus [employer] Ran[employer] 08/31/2027 [id number] / / [id number] Coil Azur Cx Hdrcl 8cm 3mm Dtch Loop Sld Implanted:Qty: 1 on 04/17/2023 at [facility] Coil N/A: Esophagus [employer] 08/31/2027 [id number] / / [id number] Coil Concerto Latticefx 10cm 4mm Dtch Implanted:Qty: 1 on 04/17/2023 by Ferny Jesus MD at [facility] Coil N/A: Esophagus [employer] 10/31/2025 NV-4-10-H ELIX / / [id number] Coil Concerto Latticefx 10cm 4mm Dtch Implanted:Qty: 1 on 04/17/2023 by Ferny Jesus MD at [facility] Coil N/A: Esophagus [employer] 12/23/2025 NV-4-10-H ELIX / / [id number] Stent Eprsth 7cm 8-10mm Vest Vtr 2cm - [id number] Implanted:Qty: 1 on 12/04/2017 at [facility] N/A: Liver [employer] 02/19/2020 [id number] / [id number] / Description: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 Embol Coil .018in 10-4mm Tapr 14.2cm Implanted:Qty: 1 on 03/19/2018 at [facility] Arterial [employer] Inc 12/19/2021 [id number] / / [id number] Description: Embol Coil .018in 10-4mm Tapr 14.2cm Implanted:Qty: 2 on 03/19/2018 at [facility] Arterial [employer] 12/19/2021 [id number] / / [id number] Description:Dr.Vaheesan Wick Penumbra Coil 400 Mireille 60cm .02in Implanted:Qty: 1 on 03/19/2018 at [facility] Arterial [employer] 05/22/2024 [id number] / / Description: Coil The Penumbra Coil 400 60cm 28mm Implanted:Qty: 1 on 03/19/2018 at [facility] Arterial [employer] 08/30/2018 [id number] / / [id number] Description: Coil The Penumbra Coil 400 57cm 24mm Implanted:Qty: 1 on 03/19/2018 at [facility] Arterial [employer] 01/23/2022 [id number] / / [id number] Description:Dr.Vaheesan Coil Pod 60cm Pk Embl J-Sft Strl Lf Implanted:Qty: 1 on 03/19/2018 at [facility] Arterial [employer] 11/02/2025 [id number] / / [id number] Description: Sys Plug Vasc Detchabl Micro 7.0 X 12mm Implanted:Qty: 1 on 03/19/2018 at [facility] Arterial Med[employer] Inc 06/28/2018 [id number] / / [id number] Coil Pod 60cm Pk Embl J-Sft Strl Lf Implanted:Qty: 1 on 03/19/2018 at [facility] Arterial [employer] 11/02/2025 [id number] / / [id number] Description: Coil Pod 60cm Pk Embl J-Sft Strl Lf Implanted:Qty: 1 on 03/19/2018 at [facility] Arterial [employer] 11/02/2025 [id number] / / [id number] Description: Coil The Penumbra Coil 400 60cm 22mm Implanted:Qty: 1 on 03/19/2018 at [facility] Arterial [employer] 11/30/2018 [id number] / / [id number] Description: Coil Concerto 4cm 12mm Dtch Cmplx Frm Implanted:Qty: 1 on 04/17/2023 at [facility] N/A: Esophagus [employer] Neurological 05/24/2025 PV-4-12-3 D / / [id number] Sphr Embl Ylw Embsph 100-300um Trisacryl Implanted:Qty: 4 on 05/12/2023 by Ferny Jesus MD at [facility] Arterial [employer] 12/23/2024 [id number] / / [id number] Description:implanted in the splenic artery Explanted Type Area Balance Truing Inspector Device Identifier Shelf Expiration Date Model / Serial / Lot Coil Concerto 4cm 12mm Dtch Cmplx Frm Explanted:Qty: 1 on 03/19/2023 at [facility] Coil Abdomen Med[employer] Neurological 05/13/2025 PV-4-12-3D / / [id number] Procedures Procedure Name Priority Date/Time Associated Diagnosis Comments ENDOSCOPY, COLON, SCREENING Routine 02/13/2024 9:29 AM METAL DRILLING MACHINE OPERATOR NM COLOREC CANC JALENN,SD NOT HI RISK 02/13/2024 9:29 AM METAL DRILLING MACHINE OPERATOR Screen for colon cancer Special Needs screening colonoscopy Received: Yesterday Ulices Kerr MD [facility] Schedulers - Endoscopy Pool Nixon Please schedule for screening colonoscopy. 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 Date of : 1965 Classification: Outpatient ?Gender: Female Ethnicity: Not or ? Race: White _ Providers: ?Tahmina Llamas MD, Talya Morrison MD (Fellow) Referring MD: ? Amor Arboleda, DODEWEY MD PhD Procedure: ?Colonoscopy Indications: ?Screening for [...] malignant ?neoplasm of colon CPT copyright 2021 [employer]. All rights reserved. The codes documented in this report are preliminary and upon photography and prints curator review may be revised to meet current compliance requirements. Tahmina Llamas MD 02/13/2024 10:08:28 AM This report has been signed electronically. Note Initiated On: 02/13/2024 9:29 AM Number of Addenda: 0 ? [facility] ? [address] 02/13/2024 9:29 AM METAL DRILLING MACHINE OPERATOR Tahmina Llamas MD GI PROCEDURE ORDERAB LES [facility] * (ABNORMAL) COMPREHENSIVE METABOLIC PANEL (06/19/2023 1:21 PM CDT) BUN 9 7 - 26 mg/dL 06/19/2023 2:44 PM CDT [facility] Creatinine 0.51(L) 0.56 - 0.96 mg/dL 06/19/2023 2:44 PM CDT [facility] Sodium 138 136 - 145 mmol/L 06/19/2023 2:44 PM CDT [facility] Potassium 4.1 3.5 - 4.5 mmol/L 06/19/2023 2:44 PM [facility] Chloride 113(H) 98 - 107 mmol/L 06/19/2023 2:44 PM CDT [facility] CO2 19(L) 22 - 29 mmol/L 06/19/2023 2:44 PM CDT [facility] Glucose 74 70 - 115 mg/dL 06/19/2023 2:44 PM [facility] Calcium 8.5 8.4 - 10.2 mg/dL 06/19/2023 2:44 PM [facility] Protein Total 6.7 6.0 - 8.3 g/dL 06/19/2023 2:44 PM [facility] Albumin 2.3(L) 3.4 - 5.0 g/dL 06/19/2023 2:44 PM [facility] Bilirubin Total 1.2 0.2 - 1.2 mg/dL 06/19/2023 2:44 PM [facility] Alkaline Phosphatase 130 40 - 150 U/L 06/19/2023 2:44 PM [facility] ALT 22 5 - 55 U/L 06/19/2023 2:44 PM [facility] AST 65(H) 5 - 34 U/L 06/19/2023 2:44 PM [facility] Anion Gap 6 6 - 16 06/19/2023 2:44 PM [facility] BUN/Creatinine Ratio 18 7 - 23 06/19/2023 2:44 PM [facility] Osmolality Calculated 283 275 - 295 mOsm/kg 06/19/2023 2:44 PM [facility] Albumin/Globulin Ratio 0.5(L) 1.1 - 2.3 06/19/2023 2:44 PM [facility] eGFR by CKD-EPI >90 >=90 mL/min/1.7 3 m2 06/19/2023 2:44 PM [facility] Blood BLOOD SPECIMEN / Unknown Lab Venipuncture / Unknown 06/19/2023 1:21 PM CDT 06/19/2023 2:12 PM CDT Dewey Villaseñor MD LAB - CHEMISTRY CORNELIA GAVIN [address] [address], [facility] [phone] * HIV-1 HIV-2 ANTIBODY + HIV P24 AG PANEL (06/04/2023 4:59 AM CDT) HIV Antigen/Antibod y 1 & 2 Non-reacti ve Non-react bryn 06/04/2023 6:11 AM CDT [facility] Comment:No Laboratory eviden ce of HIV infection. Blood BLOOD SPECIMEN / Unknown Venipuncture / Unknown 06/04/2023 4:59 AM CDT 06/04/2023 5:03 AM CDT Douglas Gomez MD LAB - CHEMISTRY ORDE ROMAINE Performing Organization Address City/[facility]/ZIP Co de Phone Number [facility] [address] [place] [address], [place] [phone] * HEMOGLOBIN A1C (04/03/2023 2:06 AM METAL DRILLING MACHINE OPERATOR) [facility] Hemoglobin A1c 4.7 <=5.6 % 04/03/2023 10:55 AM [facility] Estimated Average Glucose 88 mg/dL 04/03/2023 10:55 AM [facility] Comment: HbA1c Interpretation: Normal : < 5.7% Pre-diabetes: 5.7-6.4% Diabetes: Equal to or greater than 6.5% Test results diagnostic of diabetes should be repeated for confirmation. Treatment target values recommended by ADA and other clinical organizations should be used to evaluate metabolic control in patients. Reference: [place] [employer], Standards of Care in Diabetes -2020 In patients 70 years and older consider HbA1c target range of 7.0-7.5% (Reference: Grey Resendiz, et al. JAMDA. 2012) The Sebia assay for the measurement of HbA1c is a National Glycohemoglobin Standardization Program (NGSP) certified method. Blood BLOOD SPECIMEN / Unknown Venipuncture / Unknown 04/03/2023 2:06 AM METAL DRILLING MACHINE OPERATOR 04/03/2023 2:19 AM METAL DRILLING MACHINE OPERATOR Tay Alonso MD LAB - CHEMISTR Y ORDERABLES Performing Organization Address City/[facility]/ZIP Co de Phone Number [facility] [address] [place] [address], [place] [phone] * HEPATITIS C ANTIBODY (05/07/2018 8:18 AM METAL DRILLING MACHINE OPERATOR) Pathologist [facility] Hepatitis C Antibody Non-react bryn Non-reac tive 05/07/2018 9:57 AM METAL DRILLING MACHINE OPERATOR [facility] Comment: Hepatitis C Antibody [...] Lab Venipuncture / Unknown 05/07/2018 8:18 AM METAL DRILLING MACHINE OPERATOR 05/07/2018 8:32 AM METAL DRILLING MACHINE OPERATOR Julio Molina MD LAB - CHEMISTRY CORNELIA GAVIN [facility] Organization Address City/State/ZIP Co de Phone Number [facility] [address] [place] [address] from Last 3 Months or Most Recently Relevant to Health Maintenance Advance Directives Documents on File Type Date Recorded Patient Documentation Liaison Expl anation Adv Directive/Living Will/POA 10/03/2022 4:13 [...] 1:37 AM 03/21/2023 4:19 PM Care Teams Candy Waffle Assembler Relationship Specialty Start Date End Date Amor Arboleda DO [address] [place] [address] PCP - General Family Medicine Geriatric Medicine 12/03/22 Nelly Ozuna APRN-CERTIFIED WELLNESS PROGRAM COORDINATOR [address] [place] [address] Nurse Practitioner Nurse Practitioner 06/19/20
--- OUTSIDE RECORDS SUMMARY | 2024-03-27 07:30 | XMS_ITS | Encounter Summary ---
Author Organization [facility] Address [address] [facility] [place] [address] Care Team Providers Care Ethylene Plant Helper Name Role Phone Amor Arboleda DO Primary Care Provider + Nelly Ozuna APRN-ROOF SLATER Unavailable [phone] Amor Arboleda DO Primary Care Provider + Reason for Visit * Reason Onset Date Comments MEDICATION REFILL 06/16/2020 Encounter Details Date Type Department Care Team (Late st Contact Info) Description 06/16/[address] [address] Amor Farley W, DO [address] [place] [address] MEDICATION REFILL Social History Tobacco Use Types Packs/Day Years Used Date Smoking Tobacco: Never Smokeless Tobacco: Never Alcohol Use Standard Drinks/Week Comments No 0 (1 standard drink = 0.6 oz pur e alcohol) Sex and Gender Information Value Date Recorded Sex Assigned at Not on file Gender Identity Female 09/25/2017 10:09 AM CDT Sexual Orientation Not on file COVID-19 Exposure Response Date Recorded In the last month, have you been in contact with someone who was confirmed or suspected to have Coronavirus / COVID-19? No / Unsure 06/19/2020 3:54 PM CDT documented as of this encounter Functional Status [...] (Latest Contact Info) Description 04/26/2024 7:00 AM MEDIA LIBRARIAN Appointment [facility] US [address] [place] [phone] Dewey Villaseñor MD [address] [place] [address] [address] [place] [phone] 04/26/2024 8:00 AM MEDIA LIBRARIAN Office Visit [facility] - GI [address] [place] [address], [place] [phone] Dagoberto Walker MD [address] [place] [address] [address] [place] [address] 05/14/2024 9:15 AM CDT Hospital Encounter [facility] ENDOSCOPY [address] [place] [phone] Douglas Gomez MD [address] [place] [phone] Surgery General 05/14/2024 9:15 AM CDT - 05/14/2024 10:00 AM CDT Surgery [facility] ENDOSCOPY [address] [place] [phone] Douglas Gomez MD [address] [place] [phone] COLONOSCOPY SCREEN w/ extended prep Scheduled Procedures [...] dose Safety General On track( 10:49 AM MEDIA LIBRARIAN) No Arleth Mcghee, ABRIL Note: Expected end [...] Under Investigation 03/07/2023 03/07/2023 03/07/2023 4:14 PM MEDIA LIBRARIAN documented as of this encounter Care Teams Ethylene Plant Helper Relationship Specialty Start Date End Date Amor Arboleda DO [facility] [place] [address] PCP - General 11/12/19 10/24/21 Amor Arboleda DO [address] [place] [address] PCP - General Family Medicine Geriatric Medicine 12/03/22 Nelly Ozuna APRN-ELIZABETH [address] [place] [address] [place] [phone] Nurse Practitioner Nurse Practitioner 06/19/20 documented as of this encounter
[2024-03-27] MEDS: SODIUM CHLORIDE 0.9% IV 1,000 ML 999 ML IV CONT (07:58)
[2024-03-27 09:00] LABS: Influenza A QL RT-PCR Negative (Negative); Influenza B QL RT-PCR Negative (Negative); RSV RNA, RT-PCR Negative (Negative); SARS-CoV-2 RNA PCR Negative (Negative)
[2024-03-27 09:21] LABS: Add Urine Microscopic? YES; Appearance Urine Clear (Clear); Bacteria Urine None Seen /hpf; Bilirubin Urine Negative (Negative); Blood Urine 1+ (Negative); Color Urine Dark Yellow (Yellow); Glucose Urine UA Negative (Negative); Ketones Urine Negative (Negative); Leukocyte Esterase Ur Negative LEU/UL (Negative); Need Manual Microscopic Reviewed; Nitrate Urine Negative (Negative); Protein Urine 2+ mg/dL (Negative); RBC Urine 0-2 /hpf (0-2); Specific Grav Ur 1.028 (1.001-1.035); Squamous Epithelial Cell Urine None Seen /hpf (Few); Urobilinogen Urine 0.2 mg/dL (<2.0); WBC Urine 0-5 /hpf (0-3)
--- NOTE | 2024-03-27 10:28 | ED.GENADULT ---
HPI - General Adult General Chief complaint: Nausea/Vomiting/Diarrhea Stated complaint: n/v since 1800 Time Seen by Provider: 03/27/24 07:03 History of Present Illness HPI narrative: This is a 58-year-old female with history of liver cirrhosis with tips procedure presenting for nausea vomiting and loose stools. Symptoms started last night at 10:00 p.m.. She has had nonbloody nonbilious vomiting. Her stools have been watery without blood or melena. She denies fevers chills chest pain breathing. She does have some crampy abdominal pain. No sick contacts own. Related Data Home Medications ?Medication ?Instructions ?Recorded ?Confirmed ?Last Taken ?Type potassium chloride 10 mEq 10 meq PO DAILY 01/20/19 09/14/22 06/06/21 History tablet,extended release furosemide 80 mg tablet 80 mg PO DAILY 04/06/19 09/14/22 06/06/21 History pantoprazole 40 mg tablet,delayed 40 mg PO QAM 04/06/19 09/14/22 06/05/21 History release rizatriptan 10 mg tablet 10 mg PO DAILY PRN Migraine 04/28/19 09/14/22 Unknown History Headache spironolactone 100 mg tablet 100 mg PO DAILY 04/28/19 09/14/22 06/06/21 History omega 5-tuf-fqo-fish oil 1,000 mg 1 cap PO DAILY 07/15/19 09/14/22 06/06/21 History (120 mg-180 mg) capsule (Fish Oil) albuterol 90 mcg/actuation aerosol 180 mcg inhalation TID PRN dyspnea 08/19/20 09/14/22 Unknown History inhaler amlodipine 5 mg tablet 5 mg PO DAILY 09/14/22 09/14/22 Unknown History nortriptyline 10 mg capsule 10 mg PO DAILY 09/14/22 09/14/22 Unknown History rifaximin 550 mg tablet (Xifaxan) 550 mg PO DAILY 09/14/22 09/14/22 Unknown History Allergies Allergy/AdvReac Type Severity Reaction Status Date / Time fentanyl AdvReac Unknown N/V Verified 05/13/23 15:09 gi cocktail Allergy Intermediate Hives Uncoded 05/13/23 15:09 FOR[facility]LY [facility] Past Medical History Medical History Hypertension Diet-controlled diabetes mellitus Systemic lupus erythematosus Hyperlipemia Obstructive sleep apnea Irritable bowel disease Gastroesophageal reflux disease Cerebrovascular accident (10/2005) Type 2 diabetes mellitus with diabetic polyneuropathy Portal vein thrombosis On chronic anticoagulation with Coumadin Hypothyroidism Essential hypertension Kidney stones Anxiety Depression Gout Degenerative disc disease Arthritis Chronic pain Previously on methadone but this was discontinued in June of 2018. Cirrhosis Status post TIPS. Followed at [facility]. Asthma Heart murmur Normal echocardiogram April 2017. Headaches due to old head injury Fibromyalgia On chronic pain medication Surgical History Surgical History History of hysterectomy In her early to mid 30's due to fibrotic disease. History of transjugular intrahepatic portosystemic shunt (2018) History of section History of carpal tunnel surgery of right wrist History of laparoscopic cholecystectomy (07/2016) Family History Family History Mother Hypertension Breast cancer Cerebrovascular accident Coronary artery disease Father Cerebrovascular accident Coronary artery disease With [place] at 40 years old Social History Social History Social History: Surrogate medical decision maker: Tara Gillespie, sister. Code status: Full code. Smoking status: Never smoker Second hand tobacco smoke exposure: No Alcohol intake: never Substance use: never Substance use type: does not use Lack of Transportation: No Lack of Food: Never True Current Housing: I Have Housing Concerned About Future Housing: No Difficulty Paying Gas/Electric Bills: No Difficulty Paying for Meds: No Currently Unemployed: No Education: Decline to Answer Difficulty w/ Childcare or Family Care: No Living arrangements: alone Occupation/Education: other Additional occupation/education comments: Disability Spiritual care concerns: No Agree to blood products: Yes Exam Narrative: APPEARANCE: No apparent distress. Head: atraumatic. EYES: EOMI, NOSE: Atraumatic NECK: Trachea midline RESPIRATORY: No increased rate of breathing clear to auscultation CARDIOVASCULAR: RRR, no peripheral edema ABDOMINAL: Soft nontender no guarding rebound MUSCULOSKELETAl: No obvious deformities NEURO: Alert. Moving 4/4 extremities SKIN:: Warm, dry. Normal color PSYCHIATRIC: Normal affect Course Course Emergency Course: [place] 1899: Signed out to oncoming physician pending bed at [facility]. Patient is established liver patient and [facility] where she had a TIPS procedure and cannot be transferred to any other hospital system. Vital Signs Vital signs: Vital Signs Temperature 97.7 F 03/27/24 06:25 Pulse Rate 96 03/27/24 06:25 Respiratory Rate 16 03/27/24 06:25 Blood Pressure 197/87 H 03/27/24 06:25 Pulse Oximetry 100 03/27/24 06:25 Oxygen Delivery Room Air 03/27/24 06:25 Temperature 97.7 F 03/27/24 06:25 Pulse Rate 88 03/27/24 17:16 Respiratory Rate 20 03/27/24 17:16 Blood Pressure 172/82 H 03/27/24 11:16 Pulse Oximetry 100 03/27/24 17:16 Oxygen Delivery Room Air 03/27/24 06:25 Medical Decision Making MDM Narrative Medical decision making narrative: -Course: 58-year-old female presenting back nausea vomiting and diarrhea. CT demonstrated her liver cirrhosis w/ tips procedure and the biliary duct dilation in the A4 segment. Patient also has elevations in her bilirubin and liver enzymes. Case was discussed with Dr. Treviño (GI [facility].) He reviewed there imaging and the biliary dilation is new. He recommended transfer to [facility] and has accepted the patient. The patient is currently on a wait list. He recommended close following of the liver function tests and aggressive treatment of any signs of infection. Patient's home medications were restarted. Diet order placed. Repeat lab work was ordered for the morning. Patient was informed of the transferred agreement. She is resting comfortably in bed. Patient signed out to the oncoming physician pending transfer to [facility]. -DDX includes but is not limited to: Gastroenteritis, acute liver failure GI bleed, COVID flu -Co-morbidities complicating care: Liver cirrhosis -Independent interpretation of studies: Labs imaging reviewed -Shared decision making / Disposition: awaiting transport. Vital Signs Vital Signs: Vital Signs Temperature 97.7 F 03/27/24 06:25 Pulse Rate 96 03/27/24 06:25 Respiratory Rate 16 03/27/24 06:25 Blood Pressure 197/87 H 03/27/24 06:25 Pulse Oximetry 100 03/27/24 06:25 Oxygen Delivery Room Air 03/27/24 06:25 Temperature 97.7 F 03/27/24 06:25 Pulse Rate 88 01/25/25 17:16 Respiratory Rate 20 03/27/24 17:16 Blood Pressure 172/82 H 03/27/24 11:16 Pulse Oximetry 100 03/27/24 17:16 Oxygen Delivery Room Air 03/27/24 06:25 Lab Data 03/27/24 06:34 03/27/24 06:34 Labs: Lab Results 03/27/24 03/27/24 03/27/24 Range/Units 06:34 08:18 08:54 WBC 5.9 (4.5-10.0) K/mm3 RBC 5.05 (4.2-5.4) M/mm3 Hgb 16.4 H D (12.0-15.0) g/dL Hct 47.6 H (37.0-47.0) % MCV 94.3 (80-100) fl MCH 32.5 (26-34) pg MCHC 34.5 (32-36) g/dl RDW 18.7 H (11.5-14.5) % Plt Count 207 (150-375) k/mm3 MPV 10.8 H (7.4-10.4) fl Immature Gran % (Auto) 0.3 (0-0.5) % Neut % (Auto) 81.5 H (45.5-73.1) % Lymph % (Auto) 12.1 L (18.3-44.2) % [place] % (Auto) 5.0 (2.6-8.5) % Eos % (Auto) 0.2 (0-4.4) % Baso % (Auto) 0.9 (0.2-1.2) % Lymph # (Auto) 0.71 L (0.9-3.2) K/mm3 [place] # (Auto) 0.3 (0.1-0.6) K/mm3 Eos # (Auto) 0.0 (0-0.3) K/mm3 Baso # (Auto) 0.1 (0.0-0.1) K/mm3 Abs Immat Gran (auto) 0.02 (0.00-0.031) K/mm3 Absolute Neuts (auto) 4.8 (1.3-6.7) K/mm3 Absolute Nucleated RBC 0.000 (0.0-0.012) K/mm3 Nucleated RBC % 0.0 (0.0-0.2) % ESR 15 (0-20) mm/hr Sodium 137 (137-145) mmol/L Potassium 4.4 (3.4-5.0) mmol/L Chloride 107 (98-107) mmol/L Carbon Dioxide 20 L (22-30) mmol/L Anion Gap 10 (4-12) mmol/L BUN 11 (7-17) mg/dL Creatinine 0.47 L (0.7-1.0) mg/dL Estim Creat Clear Calc 135 ml/min Estimated GFR > 60 (59 - ) Glucose 119 H (65-110) mg/dL Calcium 8.5 (8.4-10.2) mg/dL Total Bilirubin 2.1 H (0.2-1.3) mg/dL AST 156 H (14-36) U/L ALT 72 H (6-35) U/L Alkaline Phosphatase 257 H (38-126) U/L C-Reactive Protein 2.6 H (<1.0) mg/dL Total Protein 8.0 (6.3-8.2) g/dL Albumin 3.5 (3.5-5.1) g/dL Lipase 111 (23-300) U/L Urine Color Dark yellow (Yellow) Urine Appearance Clear (Clear) Urine pH 6.0 (5.0-9.0) Ur Specific [place] 1.028 (1.001-1.035) Urine Protein 2+ H (Negative) mg/dL Urine Glucose (UA) Negative (Negative) mg/dL Urine Ketones Negative (Negative) mg/dL Ur Blood (Man) 1+ H (Negative) Urine Nitrate Negative (Negative) Urine Bilirubin Negative (Negative) Urine Urobilinogen 0.2 (<2.0) mg/dL Add Ur Microanalysis Reviewed Leukocyte Esterase Rfl Negative (Negative) LARA/UL Urine RBC 0-2 (0-2) /hpf Urine WBC 0-5 (0-3) /hpf Ur Squamous Epith Cells None seen (Few) /hpf Urine Bacteria None seen /hpf Urine Casts 3-5 Influenza A (RT-PCR) Negative (Negative) Influenza B (RT-PCR) Negative (Negative) RSV (RT-PCR) Negative (Negative) SARS-CoV-2 RNA (RT-PCR) Negative (Negative) Discharge Plan Discharge Clinical Impression: Cirrhosis of liver, Dilation of biliary tract Patient Disposition: Acute Care Hospital Condition: Guarded Prognosis Patient Language: Ukrainian Prescriptions: No Action potassium chloride 10 mEq tablet extended release 10 meq PO DAILY omega 4-ywi-ujz-fish oil [Fish Oil] 1,000 mg (120 mg-180 mg) Capsule 1 cap PO DAILY tamsulosin [Flomax] 0.4 mg capsule 0.4 mg PO DAILY Qty: 14 0RF promethazine 25 mg tablet 25 mg PO TID PRN (Reason: nausea and vomiting) Qty: 10 0RF amlodipine 5 mg tablet 5 mg PO DAILY nortriptyline 10 mg capsule 10 mg PO DAILY Xifaxan 550 mg tablet 550 mg PO DAILY furosemide 80 mg tablet 80 mg PO DAILY pantoprazole 40 mg Tablet,Delayed Release (Dr/Ec) 40 mg PO QAM rizatriptan 10 mg Tablet 10 mg PO DAILY PRN (Reason: Migraine Headache) spironolactone 100 mg Tablet 100 mg PO DAILY albuterol 90 mcg/actuation Aerosol 180 mcg INHALATION TID PRN (Reason: dyspnea) Rx Instructions: take 2 puffs cyclobenzaprine 10 mg tablet 10 mg PO TID PRN (Reason: muscle spasm) Qty: 20 0RF ondansetron 4 mg tablet,disintegrating 4 mg PO Q6-8H PRN (Reason: nausea and vomiting) Qty: 14 0RF hydrocodone-acetaminophen 5-325 mg tablet 1 tablet PO Q6H PRN (Reason: pain) Qty: 15 0RF cephalexin 500 mg capsule 500 mg PO Q6H 7 Days Qty: 28 0RF lidocaine 5 % adhesive patch,medicated 1 patch topical DAILY Qty: 15 0RF Rx Instructions: leave on most painful area for up to 12 hrs levothyroxine 125 mcg tablet See Rx Instructions .ROUTE .COMPLEX Qty: 30 0RF Dose Instruction: TAKE 1 TABLET BY MOUTH EVERY DAY Rx Instructions: TAKE 1 TABLET BY MOUTH EVERY DAY Follow-up/Referrals: Robles,DO Amor [Primary Care Provider] -
[2024-03-27] MEDS: METOCLOPRAMIDE HCL INJ 10 MG/2 ML VIAL IV PUSH (10:44)
[2024-03-27 11:22] LABS: CRP 2.6 mg/dL (<1.0)
[2024-03-27 12:11] LABS: Erythrocyte Sedimentation Rate 15 mm/hr (0-20)
--- NOTE | 2024-03-27 12:54 | PC.NURSE ---
Attempted to call pts sister, Blanco ([phone]) to update her on pts acceptance to [facility]. No answer, no voicemail box set up.
--- NOTE | 2024-03-27 17:13 | PC.NURSE ---
Ordered dinner tray for pt
[2024-03-28] VITALS (7 sets, daily range): BP systolic 147–175; BP diastolic 56–79; PULSE 79–91; RESP 11–20; TEMP 36.2–36.7; O2SAT 93–99; BMI 39.8
[2024-03-28] MEDS: HYDROcodone/acetaminophen (*CRX) 5-325 MG TABLET 1 TAB PO (06:37)
[2024-03-28 06:51] LABS: Basophils Absolute Auto 0.1 K/mm3 (0.0-0.1); Basophils Percent Auto 1.2 % (0.2-1.2); Eosinophils Absolute Auto 0.3 K/mm3 (0-0.3); Eosinophils Percent Auto 4.3 % (0-4.4); Hematocrit 40.8 % (37.0-47.0); Hemoglobin 14.1 g/dL (12.0-15.0); Immature Granulocyte Absolute 0.01 K/mm3 (0.00-0.031); Immature Granulocyte Percent A 0.2 % (0-0.5); Lymphocytes Absolute Auto 1.48 K/mm3 (0.9-3.2); Lymphocytes Percent Auto 25.4 % (18.3-44.2); Mean Corpuscular HGB Conc 34.6 g/dl (32-36); Mean Corpuscular Hemoglobin 33.2 pg (26-34); Mean Platelet Volume 11.3 fl (7.4-10.4); Monocytes Absolute Auto 0.8 K/mm3 (0.1-0.6); Monocytes Percent Auto 13.2 % (2.6-8.5); Neutrophils Absolute Auto 3.3 K/mm3 (1.3-6.7); Neutrophils Percent Auto 55.7 % (45.5-73.1); Platelet Count Result 195 k/mm3 (150-375); Red Blood Count 4.25 M/mm3 (4.2-5.4); Red Cell Distribution Width 19.1 % (11.5-14.5); White Blood Count 5.8 K/mm3 (4.5-10.0)
[2024-03-28 07:08] LABS: Alanine Aminotransferase 58 U/L (6-35); Albumin Level 2.6 g/dL (3.5-5.1); Alkaline Phosphatase 191 U/L (38-126); Ammonia 56 umol/L (9-30); Anion Gap 3 mmol/L (4-12); Aspartate Amino Transferase 126 U/L (14-36); Bilirubin,Total 1.9 mg/dL (0.2-1.3); Blood Urea Nitrogen 14 mg/dL (7-17); Calcium 7.5 mg/dL (8.4-10.2); Carbon Dioxide 24 mmol/L (22-30); Chloride 110 mmol/L (98-107); Estimated CRCL calculation 119 ml/min; Estimated Glomerular Filt Rate > 60; Glucose 93 mg/dL (65-110); Potassium 3.7 mmol/L (3.4-5.0); Sodium 137 mmol/L (137-145)
[2024-03-28] MEDS: LEVOTHYROXINE SODIUM 125 MCG TABLET PO (08:51)
[2024-03-28] MEDS: FUROSEMIDE 80 MG TABLET PO (10:06)
[2024-03-28] MEDS: rifAXIMin 550 MG TABLET PO (10:06)
[2024-03-28] MEDS: amLODIPine BESYLATE 5 MG TABLET PO (10:06)
[2024-03-28] MEDS: PANTOPRAZOLE 40 MG TABLET PO (10:06)
[2024-03-28] MEDS: NORTRIPTYLINE HCL 10 MG CAPSULE PO (10:07)
[2024-03-28] MEDS: SPIRONOLACTONE 50 MG TABLET 100 MG PO (10:21)
--- NOTE | 2024-03-28 16:28 | PC.NURSE ---
Called [facility] at [phone] update given on pts condition. Spoke with
--- NOTE | 2024-03-28 19:29 | ADMGEN ---
This patient, Liv Delong, was admitted to Medical Room 345-01. Patient/family oriented to hospital policies and general routines including ID bracelet, bed and alarms, visiting hours, pain management, procedures, bathroom and other care routines, personal items, smoking policy, room service/diet, and visiting hours. Information on how to activate the Rapid Response Team has been discussed. Patient/Family are encouraged to report perceived risks to care and to ask questions if they do not understand what they are told or what they should do.
--- NOTE | 2024-03-28 23:13 | PM.IMHP ---
H&P: HPI History of Present Illness Date/Time: 03/28/24 23:13 Chief Complaint: Abdominal pain nausea and vomiting a GI bleed Narrative: 4-year-old female a history of liver cirrhosis a tips procedure done at [facility] H presents the hospital with abdominal pain nausea vomiting and GI bleed. She states on 03/26/2024 she had dark tardy stools, bilious vomit and epigastric. She states that she has had to have her tips revised previously at [facility] and she is management GI team there. Patient was being held in the emergency department for about 34 hours S there are plans to transfer to her to evaluate however there has not been bed available, so she is being admitted to the hospital until she can transfer care to her GI team. Patient is denying nausea vomiting or dark tarry stools today. She is able to tolerate p.o.. Review of Systems Review of Systems: 12 systems were reviewed and are negative except for as per HPI. [facility] Past Medical History Medical History Hypertension Diet-controlled diabetes mellitus Systemic lupus erythematosus Hyperlipemia Obstructive sleep apnea Irritable bowel disease Gastroesophageal reflux disease Cerebrovascular accident (10/2005) Type 2 diabetes mellitus with diabetic polyneuropathy Portal vein thrombosis On chronic anticoagulation with Coumadin Hypothyroidism Essential hypertension Kidney stones Anxiety Depression Gout Degenerative disc disease Arthritis Chronic pain Previously on methadone but this was discontinued in June of 2018. Cirrhosis Status post TIPS. Followed at [facility]. Asthma Heart murmur Normal echocardiogram April 2017. Headaches due to old head injury Fibromyalgia On chronic pain medication Surgical History Surgical History History of hysterectomy In her early to mid 30's due to fibrotic disease. History of transjugular intrahepatic portosystemic shunt (2018) History of section History of carpal tunnel surgery of right wrist History of laparoscopic cholecystectomy (07/2016) Family History Family History Mother Hypertension Breast cancer Cerebrovascular accident Coronary artery disease Father Cerebrovascular accident Coronary artery disease With [place] at 40 years old Social History Social History Social History: Surrogate medical decision maker: Tara Gillespie, sister. Code status: Full code. Smoking status: Never smoker Second hand tobacco smoke exposure: No Alcohol intake: never Substance use: never Substance use type: does not use Do You Feel Safe in your Home?: Yes Lack of Transportation: No Lack of Food: Never True Current Housing: I Have Housing Concerned About Future Housing: No Difficulty Paying Gas/Electric Bills: No Difficulty Paying for Meds: No Currently Unemployed: No Education: High School Diploma/GED Difficulty w/ Childcare or Family Care: No Living arrangements: alone Occupation/Education: other Additional occupation/education comments: Disability Spiritual care concerns: No Agree to blood products: Yes Meds Home Medications and Allergies Home Medications ?Medication ?Instructions ?Recorded ?Confirmed ?Type potassium chloride 10 mEq 10 meq PO DAILY 01/20/19 03/28/24 History tablet,extended release furosemide 80 mg tablet 80 mg PO DAILY 04/06/19 03/28/24 History pantoprazole 40 mg tablet,delayed 40 mg PO QAM 04/06/19 03/28/24 History release rizatriptan 10 mg tablet 10 mg PO DAILY PRN Migraine 04/28/19 03/28/24 History Headache spironolactone 100 mg tablet 100 mg PO DAILY 04/28/19 03/28/24 History omega 7-tjl-aex-fish oil 1,000 mg 1 cap PO DAILY 07/15/19 03/28/24 History (120 mg-180 mg) capsule (Fish Oil) levothyroxine 125 mcg tablet See Rx Instructions .Route 05/26/20 03/28/24 Rx .COMPLEX #30 tabs albuterol 90 mcg/actuation aerosol 180 mcg inhalation TID PRN dyspnea 08/19/20 03/28/24 History inhaler cyclobenzaprine 10 mg tablet 10 mg PO TID PRN muscle spasm #20 04/03/21 03/28/24 Rx tabs promethazine 25 mg tablet 25 mg PO TID PRN nausea and 06/05/21 03/28/24 Rx vomiting #10 tabs amlodipine 5 mg tablet 5 mg PO DAILY 09/14/22 03/28/24 History nortriptyline 10 mg capsule 10 mg PO DAILY 09/14/22 03/28/24 History rifaximin 550 mg tablet (Xifaxan) 550 mg PO DAILY 09/14/22 03/28/24 History cholecalciferol (vitamin D3) 125 5,000 unit PO DAILY 03/28/24 03/28/24 History mcg (5,000 unit) capsule hydroxyzine HCl 10 mg tablet 10 mg PO HS 03/28/24 03/28/24 History magnesium oxide 200 mg PO DAILY 03/28/24 03/28/24 History Allergies Allergy/AdvReac Type Severity Reaction Status Date / Time fentanyl AdvReac Unknown N/V Verified 05/13/23 15:09 gi cocktail Allergy Intermediate Hives Uncoded 05/13/23 15:09 Vital Signs Vital Signs - 24 hr 03/28/24 02:15 03/28/24 06:48 03/28/24 08:52 Temperature Pulse Rate 88 91 81 Respiratory Rate 11 L 16 20 Blood Pressure 175/79 H 163/68 H 153/69 H Pulse Oximetry 93 95 99 Oxygen Delivery Fraction of Inspired Oxygen 03/28/24 15:34 03/28/24 17:31 03/28/24 19:36 Temperature 97.9 F 98.1 F Pulse Rate 85 87 Respiratory Rate 16 14 Blood Pressure 160/74 H 147/68 H Pulse Oximetry 97 98 Oxygen Delivery Room Air Fraction of Inspired Oxygen 03/28/24 19:51 03/28/24 22:46 Temperature 97.2 F L Pulse Rate 79 Respiratory Rate 18 Blood Pressure 150/56 H Pulse Oximetry 96 96 Oxygen Delivery Room Air Fraction of Inspired Oxygen 21 Exam Narrative: General: well appearing, appears stated age. HEENT: normocephalic, atraumatic. Mucous membranes moist. EOMI, PERRLA, bilateral sclera anicteric, no conjunctival injection. Neck supple without JVD, lymphadenopathy, or bruit. Respiratory: clear to ascultation bilaterally. No rales/rhonic/wheezes. Cardiovascular: Regular rate and rhythm, normal S1-S2 upon ascultation. No murmurs, rubs, or clicks. PMI is nondisplaced, capillary refill less than 3 second. Abdomen: Soft, round, no pulsatile masses, nondistended and nontender. No rebound, no guarding. No CVA tenderness, no hepatosplenomegaly. Bowel sounds present to all four quadrants. No high pitch or tinkling sounds, resonant to percussion. Extremities: No cyanosis, clubbing, or edema present. Pulses are palpable 2/2. Active ROM to all four extremities. Neuro: Alert and orientated x 4. PERRLA. Cranial nerves 2-12 intact without focal deficit. Skin: Warm, dry, and intact, without rash, erythema, or lesion. Psych: pleasant, cooperative, normal speech, normal affect, no hallucinations, no dysarthia H&P: Results Labs Labs: Short CBC 03/28/24 Range/Units 06:42 WBC 5.8 (4.5-10.0) K/mm3 Hgb 14.1 (12.0-15.0) g/dL Hct 40.8 (37.0-47.0) % Plt Count 195 (150-375) k/mm3 BMP 03/28/24 06:42 Sodium 137 Potassium 3.7 Chloride 110 H Carbon Dioxide 24 BUN 14 Creatinine 0.54 L Glucose 93 Calcium 7.5 L Liver Function 03/28/24 Range/Units 06:42 Total Bilirubin 1.9 H (0.2-1.3) mg/dL AST 126 H (14-36) U/L ALT 58 H (6-35) U/L Alkaline Phosphatase 191 H (38-126) U/L Albumin 2.6 L (3.5-5.1) g/dL Assessment and Plan Assessment and plan (1) Cirrhosis: Code(s): K74.60 - Unspecified cirrhosis of liver Status: Acute Assessment and Plan: Status post tips procedure CT showing Cirrhotic liver with patent TIPS procedure. Increasing severity for local intrahepatic biliary ductal dilation in segment 4A of the liver with transition point along side the TIPS suggesting secondary biliary obstruction. Well transferred to [facility] when bed is available Continue home meds Lasix, rifaximin, spironolactone, Daily CMP (2) Acute upper gastrointestinal bleeding: Code(s): K92.2 - Gastrointestinal hemorrhage, unspecified Status: Acute Assessment and Plan: Patient has not had any signs of bleeding while in hospital Hemoglobin within normal limits Daily labs (3) Essential (primary) hypertension: Code(s): I10 - Essential (primary) hypertension Status: Acute Assessment and Plan: Continue home antihypertensive Quality VTE Prophylaxis VTE prophylaxis: mechanical ordered Hospitalist MIPS Advance Care Plan I have confirmed that the patient's Advanced Care Plan is present, code status is documented, or surrogate decision maker is listed in patient medical record.: Yes Medication Reconciliation I have utilized all available resources to obtain, update and review the patients current medications (includes all prescriptions, OTC, herbals, cannabis, and nutritional supplements).: Yes
[2024-03-29] MEDS: LEVOTHYROXINE SODIUM 125 MCG TABLET PO (05:43)
[2024-03-29 05:46] LABS: Basophils Absolute Auto 0.1 K/mm3 (0.0-0.1); Basophils Percent Auto 1.1 % (0.2-1.2); Eosinophils Absolute Auto 0.4 K/mm3 (0-0.3); Eosinophils Percent Auto 6.7 % (0-4.4); Hematocrit 42.3 % (37.0-47.0); Hemoglobin 14.3 g/dL (12.0-15.0); Immature Granulocyte Absolute 0.01 K/mm3 (0.00-0.031); Immature Granulocyte Percent A 0.2 % (0-0.5); Lymphocytes Absolute Auto 1.36 K/mm3 (0.9-3.2); Lymphocytes Percent Auto 24.6 % (18.3-44.2); Mean Corpuscular HGB Conc 33.8 g/dl (32-36); Mean Corpuscular Hemoglobin 32.5 pg (26-34); Mean Corpuscular Volume 96.1 fl (80-100); Mean Platelet Volume 10.9 fl (7.4-10.4); Monocytes Percent Auto 17.7 % (2.6-8.5); Neutrophils Absolute Auto 2.8 K/mm3 (1.3-6.7); Neutrophils Percent Auto 49.7 % (45.5-73.1); Platelet Count Result 184 k/mm3 (150-375); Red Cell Distribution Width 18.6 % (11.5-14.5); White Blood Count 5.5 K/mm3 (4.5-10.0)
[2024-03-29 05:55] LABS: Alanine Aminotransferase 72 U/L (6-35); Albumin Level 2.7 g/dL (3.5-5.1); Alkaline Phosphatase 201 U/L (38-126); Anion Gap 2 mmol/L (4-12); Aspartate Amino Transferase 136 U/L (14-36); Bilirubin,Total 1.8 mg/dL (0.2-1.3); Blood Urea Nitrogen 13 mg/dL (7-17); Carbon Dioxide 28 mmol/L (22-30); Chloride 107 mmol/L (98-107); Estimated CRCL calculation 113 ml/min; Estimated Glomerular Filt Rate > 60; Glucose 93 mg/dL (65-110); Potassium 3.5 mmol/L (3.4-5.0); Sodium 137 mmol/L (137-145)
[2024-03-29 06:00] VITALS: BP 144/74; PULSE 83; RESP 18; TEMP 36.2; O2SAT 97
[2024-03-29] MEDS: rifAXIMin 550 MG TABLET PO (09:36)
[2024-03-29] MEDS: SPIRONOLACTONE 50 MG TABLET 100 MG PO (09:36)
[2024-03-29] MEDS: PANTOPRAZOLE 40 MG TABLET PO (09:36)
[2024-03-29] MEDS: amLODIPine BESYLATE 5 MG TABLET PO (09:36)
[2024-03-29] MEDS: MAGNESIUM OXIDE 400 MG TABLET PO (09:36)
[2024-03-29] MEDS: FUROSEMIDE 80 MG TABLET PO (09:37)
[2024-03-29 09:40] VITALS: O2SAT 97
--- NOTE | 2024-03-29 13:49 | P.PNIM_ITS ---
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 She is followed by [facility] team at [facility] * Liver enzymes continue to increase, AST 136, ALT 72, alkaline phosphate 201, total bilirubin 1.8, ammonia level yesterday was 56 today it is up to 70. * CT of the abdomen and Pelvis shown Cirrhotic liver with patent TIPS procedure. Increasing severity for local intrahepatic biliary ductal dilation in segment 4A of the liver with transition point along side the TIPS suggesting secondary biliary obstruction. 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 Small sliding- type hernia.Nonobstructing left nephrolithiasis. Small amount of pelvic ascites. * Awaiting bed at [facility] * Continue Lasix, rifaximin, spironolactone * Continue to trend labs * Will start lactulose * Start prednisone 60 mg with plan for a slow taper. * IgG 2281, IgA 601 * GI consulted for additional supports, appreciate recommendations (2) Transaminitis: Code(s): R74.01 - Elevation of levels of liver transaminase levels Status: Acute Assessment and Plan: See above (3) Acute upper gastrointestinal bleeding: Code(s): K92.2 - Gastrointestinal hemorrhage, unspecified Status: Acute Assessment and Plan: * Hemoglobin remained stable * No signs of active bleed (4) Essential (primary) hypertension: Code(s): I10 - Essential (primary) hypertension Status: Acute Assessment and Plan: * Blood pressure ranging 150/56-164/84 * Continue amlodipine Time Spent With Patient Time with patient: Greater than 35 minutes Subjective Date/time seen: 03/29/24 13:49 Interval history: Interval history: This is a 58-year-old female with a significant past medical history of SLE, hyperlipidemia, hypertension, type 2 diabetic, ALAYNA, GERD, CVA, hypothyroidism, anxiety, depression, gout, cirrhosis, asthma, fibromyalgia who presented to the hospital with complaints of abdominal pain, nausea, vomiting, diarrhea on 01/26/25. Workup in the hospital included an abdomen/pelvis CT which shown a cirrhosis of the liver with a tips procedure, increasing severity for local intrahepatic biliary duct dilatation of the liver with transition point along side the tips suggesting secondary biliary obstruction, new heterogeneous pattern of splenic activity with a couple loculated. 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 Initial labs showed a normal white blood count of 5.9, ESR 15, total bili 2.1, AST 156, ALT 72, alkaline phosphate 257, C reactive protein 2.6, lipase was normal at 111. UA was obtained which showed 2+ urine protein, 1+ urine blood, otherwise negative. Respiratory panel was negative for influenza A and B, RSV, COVID. Blood cultures were obtained and are pending. Patient is currently on transfer list to [facility] where her GI team is when a bed becomes available. She has been continued on her Lasix, rifaximin, and spironolactone. Subjective: Patient reports chills, nausea, and abdominal pain today. Labs and imaging reviewed. Review of Systems Review of Systems: 12 systems were reviewed and are negativ e except for as per HPI. All systems reviewed & are unremarkable except as noted in HPI and below Constitutional: Constitutional: Reports as per HPI and Reports no additional constitutional complaints Eyes: Eyes: Reports as per HPI and Reports no additional eye complaints ENT: Reports system reviewed and no additional complaints, except as documented and Reports as per HPI Cardiovascular: Cardiovascular: Reports as per HPI and Reports no additional cardiovascular complaints Respiratory: Respiratory: Reports as per HPI and Reports no additional respiratory complaints Gastrointestinal: Gastrointestinal: Reports as per HPI and Reports no additional gastrointestinal complaints Genitourinary: Genitourinary: Reports no additional female genitourinary complaints and Reports as per HPI Musculoskeletal: Musculoskeletal: Reports no additional musculoskeletal complaints and Reports as per HPI Integumentary/Breasts: Skin/Breast: Reports system reviewed and no additional complaints, except as docu and Reports as per HPI Neurologic: Reports system reviewed and no additional complaints, except as documented and Reports as per HPI Psychiatric: Psychiatric: Reports no additional psychiatric complaints and Reports as per HPI Exam Narrative: General: In no acute distress, well nourished Head: atraumatic, no encephalopathy Eyes: EOMI, PERRLA, sclera clear ENT: moist mucous membranes, nasal passages clear Neck: supple, no JVD, no adenopathy, trachea midline Cardiac: Normal S1 and S2. No murmur, gallops or friction rubs, peripheral pulses intact. Respiratory: Lungs clear to auscultation, no adventitious lung sounds Gastrointestinal: soft, non-distended, non-tender, normoactive bowel sounds. : voiding without difficulty. Extremities: moves all extremities well, no edema, good ROM, strength 5/5 Skin: clean, dry, intact. No wounds or lesions. Neuro: Alert and oriented x4, cranial nerves intact, no neuro deficits. Psych: normal mood, normal affect, interactive Objective Data Vital Signs Vital Signs: Vital Signs - 24 hr 03/28/24 15:34 03/28/24 17:31 03/28/24 19:36 Temperature 97.9 F 98.1 F Pulse Rate 85 87 Respiratory Rate 16 14 Blood Pressure 160/74 H 147/68 H Pulse Oximetry 97 98 Oxygen Delivery Room Air Fraction of Inspired Oxygen 03/28/24 19:51 03/28/24 22:46 03/29/24 06:00 Temperature 97.2 F L 97.2 F L Pulse Rate 79 83 Respiratory Rate 18 18 Blood Pressure 150/56 H 144/74 H Pulse Oximetry 96 96 97 Oxygen Delivery Room Air Fraction of Inspired Oxygen 21 03/29/24 09:40 Temperature Pulse Rate Respiratory Rate Blood Pressure Pulse Oximetry 97 Oxygen Delivery Room Air Fraction of Inspired Oxygen Intake/Output Intake/Output: Intake & Output 03/26/24 03/27/24 03/28/24 03/29/24 23:59 23:59 23:59 23:59 Intake Total 1000 556 Output Total 150 Balance 850 556 Meds/Results Medications: Active Medications Generic Name Dose Route Start Last Admin Trade Name Freq PRN Reason Stop Dose Admin Hydrocodone Bitart/Acetaminophen 1 tab 03/27/24 18:26 03/28/24 06:37 Hydrocodone/Acetaminophen (*Crx) 5-325 Mg Tablet PO 1 tab Q4H PRN Administration PAIN RATED 4-6 Amlodipine Besylate 5 mg 03/28/24 09:00 03/29/24 09:36 Amlodipine Besylate 5 Mg Tablet PO 5 mg DAILY JOSSY Administration Cyclobenzaprine HCl 10 mg 03/27/24 18:26 Cyclobenzaprine Hcl 10 Mg Tablet PO Q8H PRN Muscle Spasm Furosemide 80 mg 03/28/24 09:00 03/29/24 09:37 Furosemide 80 Mg Tablet PO 80 mg QAM JOSSY Administration Hydroxyzine HCl 10 mg 03/29/24 00:00 03/29/24 03:34 Hydroxyzine Hcl 10 Mg Tablet PO Not Given HS JOSSY Levothyroxine Sodium 125 mcg 03/28/24 06:30 03/29/24 05:43 Levothyroxine Sodium 125 Mcg Tablet PO 125 mcg DAILY@0630 JOSSY Administration Magnesium Oxide 400 mg 03/29/24 09:00 03/29/24 09:36 Magnesium Oxide 400 Mg Tablet PO 400 mg DAILY JOSSY Administration Nortriptyline HCl 10 mg 03/29/24 21:00 Nortriptyline Hcl 10 Mg Capsule PO HS JOSSY Pantoprazole Sodium 40 mg 03/28/24 09:00 03/29/24 09:36 Pantoprazole 40 Mg Tablet PO 40 mg QAM JOSSY Administration Rifaximin 550 mg 03/28/24 09:00 03/29/24 09:36 Rifaximin 550 Mg Tablet PO 550 mg DAILY JOSSY Administration Spironolactone 100 mg 03/28/24 09:00 03/29/24 09:36 Spironolactone 50 Mg Tablet PO 100 mg QAM JOSSY Administration Radiology Results: ITS Impressions Abdomen/Pelvis CT 03/27/24 08:39 IMPRESSION: 1. Cirrhotic liver with patent TIPS procedure. Increasing severity for local intrahepatic biliary ductal dilation in segment 4A of the liver with transition point along side the TIPS suggesting secondary biliary obstruction. 2. 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 3. Small sliding-type hernia. 4. Nonobstructing left nephrolithiasis. 5. Small amount of pelvic ascites. Labs Labs: Laboratory Results - last 24 hr 03/29/24 05:40 WBC 5.5 RBC 4.40 Hgb 14.3 Hct 42.3 MCV 96.1 MCH 32.5 MCHC 33.8 RDW 18.6 H Plt Count 184 MPV 10.9 H Immature Gran % (Auto) 0.2 Neut % (Auto) 49.7 Lymph % (Auto) 24.6 [place] % (Auto) 17.7 H Eos % (Auto) 6.7 H Baso % (Auto) 1.1 Lymph # (Auto) 1.36 [place] # (Auto) 1.0 H Eos # (Auto) 0.4 H Baso # (Auto) 0.1 Abs Immat Gran (auto) 0.01 Absolute Neuts (auto) 2.8 Absolute Nucleated RBC 0.000 Nucleated RBC % 0.0 Sodium 137 Potassium 3.5 Chloride 107 Carbon Dioxide 28 Anion Gap 2 L BUN 13 Creatinine 0.57 L Estim Creat Clear Calc 113 Estimated GFR > 60 Glucose 93 Calcium 8.0 L Total Bilirubin 1.8 H AST 136 H ALT 72 H Alkaline Phosphatase 201 H Total Protein 7.0 Albumin 2.7 L Quality VTE Prophylaxis VTE prophylaxis: mechanical ordered
[2024-03-29 14:00] VITALS: BP 164/84; PULSE 92; RESP 18; TEMP 36.3; O2SAT 94
[2024-03-29] MEDS: HYDROcodone/acetaminophen (*CRX) 5-325 MG TABLET 1 TAB PO (14:16)
[2024-03-29] MEDS: LACTULOSE 20 GM/30 ML UDC PO (14:16)
[2024-03-29 14:42] LABS: Ammonia 70 umol/L (9-30)
[2024-03-29 15:22] LABS: Immunoglobulin A 601 mg/dL (70-400); Immunoglobulin G 2281 mg/dL (700-1600); Immunoglobulin M 62 mg/dL (40-230)
[2024-03-29] MEDS: ONDANSETRON INJ 4 MG/2 ML VIAL IV PUSH (19:24)
--- NOTE | 2024-04-04 15:45 | P.TS_ITS ---
Transfer Discharge Sum: Prov Provider Date of admission: 03/28/24 17:23 Primary care physician: Amor Arboleda, DO Admitting clinician: Varsha Luna MD Consults: 03/29/24 Consult to Physician Routine Comment: Spoke to @1445 03/29 [facility] Consulting Provider: Randall Del Cid inbound call center representative/MD group to consult: GI Reason for consultation: Elevated bili and liver enzymes, history of SLE Has provider been notified: Yes DS: Admitting Diagnosis Discharge Date 03/29/24 Transfer Discharge Sum: Med Medications Active and Home Medications: Home Medications potassium chloride 10 mEq tablet,extended release 10 meq PO DAILY 01/20/19 [History Confirmed 03/28/24] furosemide 80 mg tablet 80 mg PO DAILY 04/06/19 [History Confirmed 03/28/24] pantoprazole 40 mg tablet,delayed release 40 mg PO QAM 04/06/19 [History Confirmed 03/28/24] rizatriptan 10 mg tablet 10 mg PO DAILY PRN Migraine Headache 04/28/19 [History Confirmed 03/28/24] spironolactone 100 mg tablet 100 mg PO DAILY 04/28/19 [History Confirmed 03/28/24] omega 4-hgr-hhf-fish oil 1,000 mg (120 mg-180 mg) capsule (Fish Oil) 1 cap PO DAILY 07/15/19 [History Confirmed 03/28/24] levothyroxine 125 mcg tablet See Rx Instructions .Route .COMPLEX #30 tabs 05/26/20 [Rx Confirmed 03/28/24] albuterol 90 mcg/actuation aerosol inhaler 180 mcg inhalation TID PRN dyspnea 08/19/20 [History Confirmed 03/28/24] cyclobenzaprine 10 mg tablet 10 mg PO TID PRN muscle spasm #20 tabs 04/03/21 [Rx Confirmed 03/28/24] promethazine 25 mg tablet 25 mg PO TID PRN nausea and vomiting #10 tabs 06/05/21 [Rx Confirmed 03/28/24] amlodipine 5 mg tablet 5 mg PO DAILY 09/14/22 [History Confirmed 03/28/24] nortriptyline 10 mg capsule 10 mg PO DAILY 09/14/22 [History Confirmed 03/28/24] rifaximin 550 mg tablet (Xifaxan) 550 mg PO DAILY 09/14/22 [History Confirmed 03/28/24] cholecalciferol (vitamin D3) 125 mcg (5,000 unit) capsule 5,000 unit PO DAILY 03/28/24 [History Confirmed 03/28/24] hydroxyzine HCl 10 mg tablet 10 mg PO HS 03/28/24 [History Confirmed 03/28/24] magnesium oxide 200 mg PO DAILY 03/28/24 [History Confirmed 03/28/24] Transfer Discharge Sum: Hosp Hospital Course Hospital course: Liv Delong is a 58 year old female Time Spent with Patient Time attestation: Total time spent providing and/or coordinating transfer services:
== END 2024-03-29 19:25 | disposition short-term general hospital (02) | DRG 432 ==
LOC: ANHED 18:33 → ANH3MED 03-28 18:02
PROVIDERS: Emergency Medicine; Admitting Provider Internal Medicine; Emergency Provider Emergency Medicine; PCP Student in an Organized Health Care Education/Training Program; Visit Provider Nurse Practitioner Acute Care
DX: K74.60 Unspecified cirrhosis of liver (principal); I81 Portal vein thrombosis; K92.2 Gastrointestinal hemorrhage, unspecified; I10 Essential (primary) hypertension; E11.42 Type 2 diabetes mellitus with diabetic polyneuropathy; E78.5 Hyperlipidemia, unspecified; K58.9 Irritable bowel syndrome, unspecified; K21.9 Gastro-esophageal reflux disease without esophagitis; J45.909 Unspecified asthma, uncomplicated; M32.9 Systemic lupus erythematosus, unspecified; M10.9 Gout, unspecified; M19.90 Unspecified osteoarthritis, unspecified site; M79.7 Fibromyalgia; G89.29 Other chronic pain; G47.33 Obstructive sleep apnea (adult) (pediatric); F32.A Depression, unspecified; F41.9 Anxiety disorder, unspecified; Z20.822 Contact with and (suspected) exposure to COVID-19; Z87.442 Personal history of urinary calculi; Z79.01 Long term (current) use of anticoagulants; Z86.73 Personal history of transient ischemic attack (TIA), and cerebral infarction without residual deficits
CPT/HCPCS: 36415; 74177; 80053; 81001; 82140; 82784; 83690; 85025; 85652; 86140; 87040; 87637; 96374; 96376; 99285; A9270; J2405; J2765; J7030; Q9967

== ENCOUNTER 2024-12-31 09:48 | Outpatient (CLI) | payer MEDICARE, MEDICAID, SELFPAY ==
--- NOTE | ~2024-12-31 | MM_ITS ---
EXAMINATION: MM screening [facility] HISTORY: Screening TECHNIQUE: Craniocaudal and mediolateral oblique 3-D tomosynthesis images were obtained and synthetic 2-D images were generated. CAD analysis was submitted and interpreted. COMPARISON: 05/05/2018 BREAST PARENCHYMAL COMPOSITION: Dense: The breasts are heterogeneously dense, which may obscure small masses FINDINGS: There is no evidence of suspicious mass, calcification, or architectural distortion to suggest malignancy in either breast. There has been no suspicious interval change. IMPRESSION: 1. No mammographic evidence of malignancy. 2. Recommend routine screening mammography in one year. BI-RADS Category 1: Negative Reviewed, dictated and finalized at location B.
== END 2024-12-31 09:49 | disposition home or self-care (01) ==
LOC: MICIMG 09:49
PROVIDERS: PCP Student in an Organized Health Care Education/Training Program; Visit Provider Student in an Organized Health Care Education/Training Program
DX: Z12.31 Encounter for screening mammogram for malignant neoplasm of breast (principal)
CPT/HCPCS: 77063; 77067

== ENCOUNTER 2025-01-16 19:10 | Emergency (ER) | payer MEDICARE, MEDICAID, SELFPAY ==
--- NOTE | ~2025-01-16 | XR_ITS ---
EXAMINATION: XR hand LT min 3V, 01/16/2025 19:32 CAD APPLICATION SUPPORT SPECIALIST HISTORY: fall earlier today COMPARISON: No comparisons available. Findings: No acute fracture or malalignment. No significant degenerative changes. Soft tissues unremarkable. Impression: No acute fracture or malalignment. Reviewed, dictated and finalized at location P. APPLICATION SUPPORT SPECIALIST Impression: No acute fracture or malalignment.
--- NOTE | ~2025-01-16 | XR_ITS ---
EXAMINATION: XR wrist LT min 3V, 01/16/2025 19:32 RN OBSERVATION HISTORY: fall earlier today COMPARISON: No comparisons available. Findings: No acute fracture or malalignment. No significant degenerative changes. Soft tissues unremarkable. Impression: No acute fracture or malalignment. Reviewed, dictated and finalized at location P. OBSERVATION Impression: No acute fracture or malalignment.
--- OUTSIDE RECORDS SUMMARY | 2025-01-16 19:16 | XMS_ITS | Encounter Summary ---
Author Organization [facility] Health Address [address] [place] [address] Care Team Providers Care Billing Analyst Name Role Phone Amor Arboleda DO Primary Care Provider + Nelly Ozuna APRN-PORT PATROL OFFICER Unavailable [phone] Amor Arboleda DO Primary Care Provider + Reason for Visit * Reason Onset Date Comments MEDICATION REFILL 09/12/2020 Encounter Details Date Type Department Care Team (Late st Contact Info) Description 09/12/[address] [address] Amor Farley, DO [address] [place] [id number] MEDICATION REFILL Social History Tobacco Use Types Packs/Day Years Used Date Smoking Tobacco: Never Smokeless Tobacco: Never Alcohol Use Standard Drinks/Week Comments No 0 (1 standard drink = 0.6 oz pur e alcohol) PHQ-2 Answer Date Recorded PHQ2 TOTAL SCORE 2 07/10/2020 Comments No Sex and Gender Information Value Date Recorded Sex Assigned at Not on file Legal Sex Female 6:31 AM ASBESTOS COVERER Gender Identity Female 09/25/2017 10:09 AM CDT Sexual Orientation Not on file documented as of this encounter Functional Status * Is person deaf or have serious hearing difficulty? Answer Date of Assessment Author No 07/03/2018 9:35 AM Grace Thomas RN * Is person blind or have serious difficulty seeing? Answer Date of Assessment Author No 07/03/2018 9:35 AM GONZÁLEZT Grace Hsu RN * Does person have serious difficulty walking/climbing stairs? Answer Date of Assessment Author No 07/03/2018 9:35 AM GONZÁLEZT Grace Hsu RN * Does person have difficulty dressing/bathing? Answer Date of Assessment Author No 07/03/2018 9:35 AM Grace Thomas RN * Does person have difficulty doing errands alone? Answer Date of Assessment Author No 07/03/2018 9:35 AM Grace Thomas RN documented as of this encounter Mental Status * Does person have difficulty concentrating/remembering/making decisions? Answer Entry Date Author No 07/03/2018 9:35 AM Grace Thomas RN documented in this encounter Plan of Treatment Upcoming Encounters Date Type Department Care Team (Late st Contact Info) Description 01/26/2025 9:00 AM ASBESTOS COVERER Office Visit [facility] - Rheumatology [address] [place] [address], [facility] [place] [address] Saritha Maybrery MD [address] [place] [address] [place] [address] documented as of this encounter Goals Goal Patient Goal Type Associated Problems Recent Progress Patient-Stated? Author Medication Management General On track( 024 11:16 AM CDT) No Dena Echavarria, RN Note: Expected end date: Ongoing Interventions: Take all medications as prescribed Let your doctor know right away about any changes in your medications Make sure to request a refill of your medication at least one week prior to your last dose Safety General On track( 024 10:49 AM ASBESTOS COVERER) No Arleth Mcghee, RN Note: Expected end date: ongoing Interventions: Your [...] Under Investigation 03/07/2023 03/07/2023 03/07/2023 4:14 PM ASBESTOS COVERER documented as of this encounter Care Teams Billing Analyst Relationship Specialty Start Date End Date Amor Arboleda DO [address] [place] [id number] PCP - General 11/12/19 10/24/21 Amor Arboleda DO [address] [place] [id number] PCP - General Family Medicine Geriatric Medicine 12/03/22 Nelly Ozuna APRN-PORT PATROL OFFICER [id number] [place] [id number] Nurse Practitioner Nurse Practitioner 06/19/20 documented as of this encounter
--- OUTSIDE RECORDS SUMMARY | 2025-01-16 19:16 | XMS_ITS | Clinical Summary ---
Author Organization [facility] [employer] Address [address] [place] [address] Care Team Providers Care Sox Analyst Name Role Phone Nelly Ozuna APRN-VALVE LAPPER Unavailable [phone] Amor Arboleda DO Primary Care Provider + Source Comments [facility],non-owned Affiliates and Associated Physician Practices is amultiple site organization consisting of ambulatory clinics and hospital sitesin [place], [place], [place] and [place]. This disclosure is being madepursuant to the Care Everywhere program and may not contain all information available regarding this patient. Last updated 17.[facility] Allergies No known active allergies Medications * Be aware that medications may not be up to date on this document. Alwaysverify current medications with the patient. rizatriptan (MAXALT) 10 MG tablet Take 1 (one) tablet by mouth daily as needed - may repeat one time for Migraine N Active simethicone (MYLICON) 80 MG chew tablet Take 1 tablet by mouth 3 times daily as needed for Gas Pain 90 tablet 3 9 Active albuterol HFA (PROVENTIL;VENT GERARDO;PROAIR) 108 (90 Base) MCG/ACT inhaler INHALE 2 PUFFS INTO LUNGS Q 4 H PRF DIFFICULTY BREATHING 0 Active escitalopram (Lexapro) 5 MG tabletIndicatio ns:anxiety Take 1 (one) tablet by mouth once daily Reasons: anxiety 2 Active lactulose (Chronulac) 10 GM/15ML solution Take 45 mL by mouth 3 times daily for 60 days 4050 mL 1 3 Active ondansetron, disintegrating, (Zofran ODT) 4 MG tablet Take 1 (one) tablet by mouth as needed 3 Active carvedilol (Coreg) 3.125 MG tablet Take 1 (one) tablet by mouth 2 times daily for 90 days 180 tablet 4 Active rifAXIMin (Xifaxan) 550 MG tablet Take 1 (one) tablet by mouth 2 times daily 180 tablet 1 4 Active levothyroxine (Synthroid) 125 MCG tabletIndicatio ns:Hypothyroidi sm Take 1 (one) tablet by mouth once daily for 30 days Reasons: Underactive Thyroid 30 tablet 4 Active pantoprazole EC (Protonix) 40 MG tablet Take 1 (one) tablet by mouth once daily for 30 days 30 tablet 4 Active furosemide (Lasix) 20 MG tablet Take 2 (two) tablets by mouth once daily 180 tablet 3 4 Active spironolactone (Aldactone) 100 MG tablet Take 1 (one) tablet by mouth once daily 90 tablet 3 4 Active acetaminophen (Tylenol) 500 MG tablet Take 1 (one) tablet by mouth every 6 hours as needed Maximum allowable Acetaminophen amount = 4 Grams (4000 mg) / 24 hours. 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 Finish the remaining prep at 4 am the morning of the procedure. 4000 mL 4 Active polyethylene glycol (Gavilyte-C) 240 g solution Drink half the prep at 5 pm the evening prior to the procedure. Finish the remaining prep at 4 am the morning of the procedure. 4000 mL 4 Active ferrous sulfate 325 (65 FE) MG tablet Take 1 (one) tablet by mouth once daily Active amLODIPine (Norvasc) 5 MG tablet Take 1 (one) tablet by mouth once daily 4 Active polyethylene glycol (Golytely) solution Drink 1/2 of prep at 6pm the night before test. Finish the prep at 4 am the morning of colonoscopy. 4000 mL 5 Active magnesium citrate 1.745 GM/30ML Drink entire bottle 2 nights before colonoscopy. 300 mL 5 Active magnesium citrate solution Drink whole bottle at 5 PM two nights before colonoscopy. 300 mL 5 Active polyethylene glycol (Golytely) solution Drink half of prep solution at 5pm the night before colonoscopy. Finish the prep at 4am the day of test. 4000 mL 5 Active Active Problems Problem Noted Date Diagnosed Date Dilation of biliary tract 03/27/2024 Dysphagia 05/21/2023 Anemia 05/21/2023 Syncope and collapse [...] is here for f/u after hospitalization at [facility] (03/15-03/27/18) for abdominal pain 2/2 hemoperitoneum with associated 2.5 cm splenic laceration. 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 Notably, she did receive Haemophils B, Meningococcal, and Pneumococcal vaccines. Since discharge, the pt says she's had [...] lesion or intrahepatic biliary dilation. CT abd: (05/07/18) 1. Multiple subcapsular hyperenhancing observations most of which do not demonstrate clear washout (LR-3). Questionable washout remains in a stable 6 mm observation in segment 7 near the dome (LR 4). 2. Postprocedural changes from splenic artery embolization proximal to the splenic hilum. 3. Hepatic cirrhosis with sequela of portal hypertension. Patent TIPS. Decreased ascites. PFT: (05/12/18) Echo: 05/07/2018 Cardiac Cath: 04/29/2018 ANGIOGRAPHY: i. Left main: Angiographically normal artery. ii. LAD: Long artery that tapers to termination by wrapping around the apex. There is are 2 diminutive diagonal branches. There is no angiographically significant stenosis. iii. LCx: Dominant artery that gives off a large, branching obtuse marginal (OM) 1 and 2 as well as well as a PL branch. There is no angiographically significant stenosis. iv. RCA: Small non dominant artery without angiographically significant stenosis. DOMINANCE: Left DIAGNOSTIC INTERPRETATIONS: normal coronary arteries RECOMMENDATIONS AFTER DIAGNOSTIC CATHETERIZATION: Aggressive modification of atherosclerotic risk factors. Liver Biopsy: 10/04/2016 FINAL DIAGNOSIS: LIVER, NEEDLE CORE BIOPSY: - CIRRHOSIS WITH FEATURES OF CHRONIC HEPATITIS - SEE COMMENT GROSS DESCRIPTION: Submitted fixed in formalin in one container labeled with the patient's name, Liv Delong and liver, are two cores of soft, yellow tissue measuring 1.0 cm in length and 0.9 cm in length, and both with diameter = 0.1 cm. The specimen is submitted in toto in cassette [...] cirrhosis. The PAS-D stain is negative for [id number] globules. The iron stain is negative. The findings in this biopsy show advanced stage of liver disease, making it difficult to assign a definitive etiology. Concern for NAFLD is noted, though no ongoing [...] patient with a positive AFSHIN and ASMA. The history of systemic autoimmune disease is noted, however, the positive AFSHIN may instead reflect the patient's SLE. EGD: 05/08/2018 Findings: The examined esophagus was normal. A large amount of food (residue) was found in the entire examined stomach. The second portion of the duodenum was normal. Estimated Blood Loss: Estimated blood loss: none. Complications: No immediate complications. Impression: - Normal esophagus. - A large amount of food (residue) in the stomach. - Normal second portion of the duodenum. - No specimens collected. Recommendation: - The patient will be observed post-procedure, until all discharge criteria are met. - Discharge patient to home. Colonoscopy: h/o VENESSA 1991 needs rpt Mammo: needs Pap: needs WW exam or pap if she has a cervix SW: 04/20/18 Clinical Social Work Impression: It is the impression of this social worker masters that Liv Delong has several positive factors for Liver transplant candidacy including knowledge of illness, sufficient insurance coverage, stable financial situation for post transplant needs, no concerns regarding substance abuse. Patient must identify adequate support system and appropriate discharge plan prior to listing. SW informed coordinator of patient's methadone use for fibromyalgia. Plan: plant nursery worker to provide supportive services as needed. Patient appears to be a reasonable candidate for transplant from a psychosocial perspective, pending: - Post transplant arrangement forms are needed prior to being listed with confirmation. Psychiatric Consult Recommended: No Transplant Leasing Property Manager: Brittany Michael LMSW RD: 04/20/18 Nutrition concerns: Pt gripped weak for age and gender at 22.8 kg. Pt's [place] Free Nutrition score was 2, high nutrition [...] and it seems to continue to fall off. Observed moderate muscle wasting at temples and clavicles. Will follow up with pt per Liver Frailty protocol. In pt's nutrition favor: pt reports she consumes 2-3 Ensure/d, aware of protein and consumes HBV protein sources. Aware of and usually follows <2000 mg sodium diet. Recommendations/Interventions: 1. Recommend 1.2-1.5 g/kg IBW for [...] 5. Recommend PT consult for frailty assessment Janeth Sher, RYNE/LD PT eval: 05/07/2018 Carmita Wing, PT Assessment: based on frailty score and 6MWT test with functional impairment of 35.78%, pt benefits from continued home exercise program as instructed to improve overall endurance and activity tolerance. Pt is independent with her home exercise program and expressed good understanding of education provided the following goals were met this one time visit: Goals - MET Independent with home exercise program Pt to express good understanding of instructions provided Plan: Patient was seen for one time visit for evaluation and home exercise program. No further skilled PT needs at this time. Discharge PT.] STILL NEEDS: Strongyloides/toxo DEXA Resolved Problems Problem Noted Date Diagnosed Date Resolved Date Pneumonia 05/21/2023 06/18/2023 Anemia, unspecified type 02/15/2023 Immunizations Immunization Administration Dates Next Due HIB-PRP-T 4 DOSE 06/05/2023,03/19/2018 Meningococcal B Recombinant 2 Dose, IM 9 PNEUMOCOCCAL PPSV23 09/21/2020 Pneumococcal Pcv13 Conj 03/19/2018 Family History Medical History Relation Name Comments Cardiomyopathy Father Other Father Cancer - Breast Mother Relation Name Status Comments Father Mother Social History Tobacco Use Types Packs/Day Years Used Date Smoking Tobacco: Never Smokeless Tobacco: Never Tobacco Cessation:Counseling Given: Yes Alcohol Use Standard Drinks/Week Comments No 0 [...] you have a drink containing alcohol? Never 03/29/2024 Q2: How many drinks containi ng alcohol do you have on a typical day when you are drinking? Patient does not drink Q3: How often do you have si x or more drinks on one occasion? Never 03/29/2024 Overall Financial Resource Strain (CARDIA) Answe r Date Recorded How hard is it for you to pa y for the very basics like food, housing, medical care, and heating? Not hard at all 03/29/2024 PHQ-2 Answer Date Recorded PHQ2 TOTAL SCORE 2 07/10/2020 [facility] - Occupational Stress Questionnaire Answer Date Recorded Do you feel stress - tense, restless, nervous, or anxious, or unable to sleep at night because your mind is troubled all the time - these days? Only a little 03/29/2024 Hunger Vital Sign Answer Date Recorded Within the past 12 months, y ou worried that your food would run out before you got the money to buy more. Never true 03/29/19 25 Within the past 12 months, t he food you bought just didn't last and you didn't have money to get more. Never true 03/29/2024 PRAPARE - Transportation Answer Date Re corded In the past 12 months, has l ack of transportation kept you from medical appointments or from getting medications? No 03/04 In the past 12 months, has l ack of transportation kept you from meetings, work, or from getting things needed for daily living? No 03/29/2024 Housing Stability Vital Sign Answer Carlton e [...] place to sleep or slept in a detention (including now)? No 05/11/2023 Housing Stability Vital Sign Answer Carlton e Recorded In the last 12 months, was t here a time when you were not able to pay the mortgage or rent on time? No 03/29/2024 In the past 12 months, how m any times have you moved where you were living? 1 03/29/2024 At any time in the past 12 m [facility], were you homeless or living in a detention (including now)? No 03/29/2024 Comments No Sex and Gender Information Value Date Recorded Sex Assigned at Not on file Legal Sex Female 6:31 AM BOTTOM STEEP TENDER Gender Identity Female 09/25/2017 10:09 AM CDT Sexual Orientation Not on file Last Filed Vital Signs Vital Sign Reading Time Taken Comments Blood Pressure 127/64 03/31/2024 11:29 AM BOTTOM STEEP TENDER Pulse 83 03/31/2024 11:29 AM BOTTOM STEEP TENDER Temperature 36.6 C (97.8 F) 03/31/2024 11:29 AM BOTTOM STEEP TENDER Respiratory Rate 16 03/31/2024 11:29 AM BOTTOM STEEP TENDER Oxygen Saturation 94% 03/31/2024 11:29 AM BOTTOM STEEP TENDER Inhaled Oxygen Concentration 28% 05/23/2023 1 2:31 PM CDT Weight 110.9 kg (244 lb 7 oz) 03/29/2024 8:31 PM BOTTOM STEEP TENDER Height 167.6 cm (5' 6) 03/29/2024 8:31 PM BOTTOM STEEP TENDER Body Mass Index 39.45 03/29/2024 8:31 PM BOTTOM STEEP TENDER Plan of Treatment Upcoming Encounters Date Type Department Care Team (Late st Contact Info) Description 01/26/2025 9:00 AM BOTTOM STEEP TENDER Office Visit [facility] - Rheumatology [address] [place] [address], [facility] [place] [address] Saritha Mayberry MD [address] [place] [address] [place] [address] Health Maintenance Due Date Last Done Comments COLOGUARD (AGES 45-75) - COLON CA SCREENING 1965 CT COLONOGRAPHY - COLON CA SCREENING 1965 FIT - COLON CA SCREENING 1965 FLEX SIG - COLON CA SCREENING 1965 DTAP/TDAP/TD VACCINES (1 - Tdap) 09/26/1982 PAP with HPV 09/26/1993 Respiratory Syncytial Virus (RSV) Vaccine Pt: or over 60 yrs (1 - Risk 50-74 years 1-dose series) 09/26/2013 ZOSTER VACCINE (1 of 2) 09/26/2013 DIABETES RETINOPATHY SCREENING 02/11/2018 DIABETES-FOOT EXAM WITH MONOFILAMENT 02/11/2018 HEPATITIS B VACCINE (1 of 3 - Risk 3-dose series) 2023 DIABETES-HGB A1C 10/02/2023 04/03/2023, , 04/30/2018, Additional history exists DEPRESSION SCREENING 03/03/2024 DIABETES - URINE PROTEIN SCREENING 03/03/2024 MEDICARE AWV CALENDAR YEAR 2024 COVID-19 VACCINE (1 - season) 2024 INFLUENZA VACCINE (#1) 2024 MAMMOGRAM 01/29/2025 01/29/2023, 01/02, 05/05/2018 DIABETES-SERUM CREATININE 03/31/20252024, 03/29/2024, 06/19/2023, Additional history exists PNEUMOCOCCAL VACCINE 50+ (3 of 3 - PCV20 or PCV21) 09/21/2025 09/21/2020, 03/19/2018 COLON MONITORING 02/12/2034 02/13/2024, , 07/03/2018, Additional history exists COLONOSCOPY - COLON CA SCREENING 02/12/2034 02/13/2024, 02/13/2024, 07/03/2018, Additional history exists Colorectal Cancer Screening 02/12/2034 MENINGOCOCCAL (Group B) VACCINE SHARED DECISION-MAKING Aged Out 03/19/2018 No longer eligible based on patient's age to complete this topic HEPATITIS C SCREENING Completed 05/07/2018 , 07/23/2016, 12/08/2014 HIV SCREENING Completed 06/04/2023, 08/2018, 01/27/2018 HIB VACCINE Aged Out 06/05/2023, 03/19/2018 No lo nger eligible based on patient's age to complete this topic HPV VACCINE Aged Out No longer eligi ble based on patient's age to complete this topic MENINGOCOCCAL GROUPS A/C/Y/W VACCINE Aged Out No longer eligible based on patient's age to complete this topic Goals Goal Patient Goal Type Associated Problems Recent Progress Patient-Stated? Author Medication Management General On track( 11:16 AM CDT) No Dena Echavarria RN Note: Expected end date: Ongoing Interventions: Take all medications as prescribed Let your doctor know right away about any changes in your medications Make sure to request a refill of your medication at least one week prior to your last dose Safety General On track( 10:49 AM BOTTOM STEEP TENDER) No Arleth Mcghee RN Note: Expected end date: ongoing Interventions: Your nurse will assess your risk for falls/injury each visit Make sure appropriate safety devices are available and within reach Be aware of medications that could predispose you to falling Wear non-skid/rubber sole footwear Wear glasses/hearing aid Keep personal items within easy reach Use some light at night in your room Medical Devices Implanted Type Area [employer] Professor Device Identifier Shelf Expiration Date Model / Serial / Lot Coil Concerto Latticefx 8cm 4mm Dtch Pos Implanted:Qty: 1 on 03/19/2023 by Ferny Jesus MD at [facility] Coil Abdomen [employer] 12/10/2025 NV-4-8-HE LIX / / [id number] Coil Concerto Latticefx 10cm 4mm Dtch Implanted:Qty: 1 on 03/19/2023 by Ferny Jesus MD at [facility] Coil Vein [employer] 10/31/2025 NV-4-10-H ELIX / / [id number] Coil Azur Hdrcl 5cm 4mm .038in Dtch Loop Implanted:Qty: 1 on 04/17/2023 by Ferny Jesus MD at [facility] Coil N/A: Esophagus [employer] Ranjan 09/30/2026 [id number] / / [id number] Coil Azur Hdrcl 5cm 4mm .038in Dtch Loop Implanted:Qty: 1 on 04/17/2023 by Ferny Jesus MD at [facility] Coil N/A: Esophagus [employer] Ranjan 12/31/2026 [id number] / / [id number] Coil Azur Cx Hdrcl 8cm 3mm Dtch Loop Sld Implanted:Qty: 1 on 04/17/2023 by Ferny Jesus MD at [facility] Coil N/A: Esophagus [employer] Ranjan 08/31/2027 [id number] / / [id number] Coil Azur Cx Hdrcl 8cm 3mm Dtch Loop Sld Implanted:Qty: 1 on 04/17/2023 by Ferny Jesus MD at [facility] Coil N/A: Esophagus [employer] Ranjan 08/31/2027 [id number] / / [id number] Coil Azur Cx Hdrcl 8cm 3mm Dtch Loop Sld Implanted:Qty: 1 on 04/17/2023 at [facility] Coil N/A: Esophagus [employer] Ranjan 08/31/2027 [id number] / / [id number] Coil Concerto Latticefx 10cm 4mm Dtch Implanted:Qty: 1 on 04/17/2023 by Ferny Jesus MD at [facility] Coil N/A: Esophagus [employer] 10/31/2025 NV-4-10-H ELIX / / [id number] Coil Concerto Latticefx 10cm 4mm Dtch Implanted:Qty: 1 on 04/17/2023 by Ferny Jesus MD at [facility] Coil N/A: Esophagus [employer] 12/23/2025 NV-4-10-H ELIX / / [id number] Stent Eprsth 7cm 8-10mm [place] Vtr 2cm - [id number] Implanted:Qty: 1 on 12/04/2017 at [facility] N/A: Liver [employer] 02/19/2020 [id number] / [id number] / Description: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 Embol Coil .018in 10-4mm Tapr 14.2cm Implanted:Qty: 1 on 03/19/2018 at [facility] Arterial [employer] 12/19/2021 [id number] / / [id number] Description: Embol Coil .018in 10-4mm Tapr 14.2cm Implanted:Qty: 2 on 03/19/2018 at [facility] Arterial [employer] 12/19/2021 [id number] / / [id number] Description: Coil Penumbra Coil 400 Mireille 60cm .02in Implanted:Qty: 1 on 03/19/2018 at [facility] Arterial [employer] 05/22/2024 [id number] / / Description: Coil The Penumbra Coil 400 60cm 28mm Implanted:Qty: 1 on 03/19/2018 at [facility] Arterial [employer] 08/30/2018 [id number] / / [id number] Description: Coil The Penumbra Coil 400 57cm 24mm Implanted:Qty: 1 on 03/19/2018 at [facility] Arterial [employer] 01/23/2022 [id number] / / [id number] Description: Coil Pod 60cm Pk Embl J-Sft Strl Lf Implanted:Qty: 1 on 03/19/2018 at [facility] Arterial [employer] 11/02/2025 [id number] / / [id number] Description: Sys Plug Vasc Detchabl Micro 7.0 X 12mm Implanted:Qty: 1 on 03/19/2018 at [facility] Arterial [employer] 06/28/2018 [id number] / / [id number] Coil Pod 60cm Pk Embl J-Sft Strl Lf Implanted:Qty: 1 on 03/19/2018 at [facility] Arterial [employer] 11/02/2025 [id number] / / [id number] Description: Coil Pod 60cm Pk Embl J-Sft Strl Lf Implanted:Qty: 1 on 03/19/2018 at [facility] Arterial [employer] 11/02/2025 [id number] / / [id number] Description: Coil The Penumbra Coil 400 60cm 22mm Implanted:Qty: 1 on 03/19/2018 at [facility] Arterial [employer] 11/30/2018 [id number] / / [id number] Description: Coil Concerto 4cm 12mm Dtch Cmplx Frm Implanted:Qty: 1 on 04/17/2023 at [facility] N/A: Esophagus [employer] 05/24/2025 PV-4-12-3 D / / [id number] Sphr Embl Ylw Embsph 100-300um Trisacryl Implanted:Qty: 4 on 05/12/2023 by Ferny Jesus MD at [facility] Arterial [facility] [employer] 12/23/2024 [id number] / / [id number] Description:implanted in the splenic artery Explanted Type Area [employer] Professor Device Identifier Shelf Expiration Date Model / Serial / Lot Coil Concerto 4cm 12mm Dtch Cmplx Frm Explanted:Qty: 1 on 03/19/2023 at [facility] Coil Abdomen [employer] 05/13/2025 PV-4-12-3D / / [id number] Procedures Procedure Name Priority Date/Time Associated Diagnosis Comments COMPREHENSIVE METABOLIC PANEL AM Draw 03/31/2024 5:12 AM BOTTOM STEEP TENDER ENDOSCOPY, COLON, SCREENING Routine 02/13/2024 9:29 AM BOTTOM STEEP TENDER HIV-1 HIV-2 ANTIBODY + HIV P24 AG PANEL AM Draw 06/04/2023 4:59 AM CDT HEMOGLOBIN A1C VIANEY 04/03/2023 2:06 AM BOTTOM STEEP TENDER HEPATITIS C ANTIBODY Routine 05/07/2018 8:18 AM BOTTOM STEEP TENDER Pre-transplant evaluation for liver transplant from Last 3 Months or Most Recently Relevant to Health Maintenance Results * (ABNORMAL) COMPREHENSIVE METABOLIC PANEL (03/31/2024 5:12 AM [facility]) BUN 15 7 - 26 mg/dL 03/31/2024 5:53 AM [facility] Creatinine 0.82 0.56 - 0.96 mg/dL 03/31/2024 5:53 AM [facility] Sodium 138 136 - 145 mmol/L 03/31/2024 5:53 AM [facility] Potassium 4.1 3.5 - 4.5 mmol/L 03/31/2024 5:53 AM [facility] Chloride 108(H) 98 - 107 mmol/L 03/31/2024 5:53 AM [facility] CO2 24 22 - 29 mmol/L 03/31/2024 5:53 AM [facility] Glucose 88 70 - 99 mg/dL 03/31/2024 5:53 AM [facility] Calcium 8.6 8.4 - 10.2 mg/dL 03/31/2024 5:53 AM [facility] Protein Total 6.2 6.0 - 8.3 g/dL 03/31/2024 5:53 AM [facility] Albumin 2.3(L) 3.4 - 5.0 g/dL 03/31/2024 5:53 AM [facility] Bilirubin Total 1.6(H) 0.2 - 1.2 mg/dL 03/31/2024 5:53 AM [facility] Alkaline Phosphatase 192(H) 40 - 150 U/L 03/31/2024 5:53 AM [facility] ALT 50 5 - 55 U/L 03/31/2024 5:53 AM [facility] AST 95(H) 5 - 34 U/L 03/31/2024 5:53 AM [facility] Anion Gap 6 6 - 16 03/31/2024 5:53 AM [facility] BUN/Creatinine Ratio 18 7 - 23 03/31/2024 5:53 AM [facility] Osmolality Calculated 286 275 - 295 mOsm/kg 03/31/2024 5:53 AM [facility] Albumin/Globulin Ratio 0.6(L) 1.1 - 2.3 03/31/2024 5:53 AM BOTTOM STEEP TENDER [facility] eGFR by CKD-EPI 82(L) >=90 mL/min/1.7 3 m2 03/31/2024 5:53 AM BOTTOM STEEP TENDER [facility] Blood BLOOD SPECIMEN / Unknown Venipuncture / Unknown 03/31/2024 5:12 AM BOTTOM STEEP TENDER 03/31/2024 5:26 AM BOTTOM STEEP TENDER Bear Jordan MD LAB - CHEMISTRY ORDERABLES Final Result [facility] [address] [place] [address], [facility] [phone] * ENDOSCOPY, COLON, SCREENING (02/13/2024 9:29 AM BOTTOM STEEP TENDER) Report Endoscopy POC Endoscopy Department Report _ Patient Name: Liv Delong Procedure Date: 02/13/2024 9:29 AM Date of : 1965 Classification: Outpatient Gender: Female Ethnicity: Not or Race: White _ Providers: Tahmina Llamas MD, Talya Morrison MD (Fellow) Referring MD: Amor Arboleda DO, WING-KIN SYN, MD PhD Procedure: Colonoscopy Indications: Screening for colorectal malignant neoplasm Medications: Monitored Anesthesia Care Description of Procedure: Pre-Anesthesia Assessment: - Prior to the procedure, a History and Physical was performed, and patient medications and allergies were reviewed. The patient's tolerance of previous anesthesia was also reviewed. The risks and benefits of the procedure and the sedation options and risks were discussed with the patient. All questions were answered, and informed consent was obtained. Prior Anticoagulants: The patient has taken no anticoagulant or antiplatelet agents. ASA Grade Assessment: III - A patient with severe systemic disease. After reviewing the risks and benefits, the patient was deemed in satisfactory condition to undergo the procedure. After I obtained informed consent, the scope was passed under direct vision. Throughout the procedure, the patient's blood pressure, pulse, and oxygen saturations were monitored continuously. The Colonoscope was introduced through the anus and advanced to the cecum, identified by the ileocecal valve. The colonoscopy was performed without difficulty. The patient tolerated the procedure well. The quality of the bowel preparation was poor. The ileocecal valve and the rectum were photographed. Findings: Semi-solid stool was found in the entire colon, precluding visualization. Lavage of the area was performed using a moderate amount, resulting in incomplete clearance with continued poor visualization. No evidence of large obstructive lesions. however, polyps could have been missed due to poor preparation. Estimated Blood Loss: Estimated blood loss: none. Complications: No immediate complications. Impression: - Preparation of the colon was poor. - Stool in the entire examined colon. - No specimens collected. Recommendation: - Discharge patient to home. - Resume previous diet. - Continue present medications. - Repeat colonoscopy at next available appointment (within 3 months) for screening purposes. - Patient has a contact number available for emergencies. The signs and symptoms of potential delayed complications were discussed with the patient. Return to normal activities tomorrow. Written discharge instructions were provided to the patient. Attending Participation: I was present and participated during the entire procedure, including non-gambino portions. Procedure Code(s): --- Professional --- G0121, Colorectal cancer screening; colonoscopy on individual not meeting criteria for high risk Diagnosis Code(s): --- Professional --- Z12.11, Encounter for screening for malignant neoplasm of colon CPT copyright 2021 [employer]. All rights reserved. The codes documented in this report are preliminary and upon machine shop helper review may be revised to meet current compliance requirements. Tahmina Llamas MD 02/13/2024 10:08:28 AM This report has been signed electronically. Note Initiated On: 02/13/2024 9:29 AM Number of Addenda: [address] [address] [facility] 02/13/2024 9:29 AM BOTTOM STEEP TENDER Tahmina Llamas MD GI PROCEDURE ORDERABLES Edited Result - Final [facility] * HIV-1 HIV-2 ANTIBODY + HIV P24 AG PANEL (06/04/2023 4:59 AM CDT) Pathologist [facility] HIV Antigen/Antibod y 1 & 2 Non-reacti ve Non-react bryn 06/04/2023 6:11 AM CDT [facility] Comment:No Laboratory eviden ce of HIV infection. Blood BLOOD SPECIMEN / Unknown Venipuncture / Unknown 06/04/2023 4:59 AM CDT 06/04/2023 5:03 AM CDT us Douglas Gomez MD LAB - CHEMISTRY ORDERABLES Fi nal Result Performing Organization Address [facility]/ZIP Co de Phone Number [address] [address], [facility] [phone] * HEMOGLOBIN A1C (04/03/2023 2:06 AM BOTTOM STEEP TENDER) [facility] Hemoglobin A1c 4.7 <=5.6 % 04/03/2023 10:55 AM [facility] Estimated Average Glucose 88 mg/dL 04/03/2023 10:55 AM [facility] Comment: HbA1c Interpretation: Normal : < 5.7% Pre-diabetes: 5.7-6.4% Diabetes: Equal to or greater than 6.5% Test results diagnostic of diabetes should be repeated for confirmation. Treatment target values recommended by ADA and other clinical organizations should be used to evaluate metabolic control in patients. Reference: [place] [employer], Standards of Care in Diabetes -2020 In patients 70 years and older consider HbA1c target range of 7.0-7.5% (Reference: Grey Resendiz et al. JAMDA. 2012) The Sebia assay for the measurement of HbA1c is a National Glycohemoglobin Standardization Program (NGSP) certified method. Blood BLOOD SPECIMEN / Unknown Venipuncture / Unknown 04/03/2023 2:06 AM BOTTOM STEEP TENDER 04/03/2023 2:19 AM BOTTOM STEEP TENDER Tay Alonso MD LAB - CHEMISTRY ORDERA BLES Final Result Performing Organization Address City[facility]/ZIP Co de Phone Number [facility] [address] [place] [address], [facility] [phone] * HEPATITIS C ANTIBODY (05/07/2018 8:18 AM BOTTOM STEEP TENDER) Hepatitis C Antibody Non-react bryn Non-reac tive 05/07/2018 9:57 AM BOTTOM STEEP TENDER [facility] Comment: Hepatitis C Antibody screen indicates [...] Lab Venipuncture / Unknown 05/07/2018 8:18 AM BOTTOM STEEP TENDER 05/07/2018 8:32 AM BOTTOM STEEP TENDER Julio Molina MD LAB - CHEMISTRY ORDERABLES Fi nal Result Performing Organization Address [facility]/ZIP Co de Phone Number [facility] [address] [place] [address], [facility] [phone] from Last 3 Months or Most Recently Relevant to Health [place] [address] [facility] [place] [address] [place] [address] [place]ICA[place] [facility] MANAGED MEDICARE ADV Advance Directives Documents on File Type Date Recorded Patient Paediatric Surgeon Expl anation Adv Directive/Living Will/POA 10/03/2022 4:13 PM Adv Directive/Living Will/POA 2022 2:23 PM * Full Code (Latest Code Status on File) Date Activated Date Inactivated Comments 03/29/2024 8:29 PM 03/31/2024 3:38 PM * Full Code Date Activated Date Inactivated Comments 05/11/2023 5:48 PM 06/05/2023 7:34 PM * Full Code Date Activated Date Inactivated Comments 05/11/2023 5:48 PM 05/11/2023 5:48 PM * Full Code Date Activated Date Inactivated Comments 04/17/2023 2:27 AM 04/22/2023 8:22 PM * Full Code Date Activated Date Inactivated Comments 04/02/2023 11:09 PM 04/04/2023 4:25 PM Care Teams Sox Analyst Relationship Specialty Start Date End Date Amor Arboleda, [address] [place] [address] PCP - General Family Medicine Geriatric Medicine 12/03/22 Nelly Ozuna APRN-VALVE LAPPER [address] [place] [id number] Nurse Practitioner Nurse Practitioner 06/19/20
--- OUTSIDE RECORDS SUMMARY | 2025-01-16 19:16 | XMS_ITS | Encounter Summary ---
Author Organization [facility] Health Address [address] [place] [address] Care Team Providers Care Postmaster Relief Name Role Phone Amor Arboleda DO Primary Care Provider + Nelly Ozuna APRN-AUTOMOBILE PARKER Unavailable [phone] Amor Arboleda DO Primary Care Provider + Reason for Visit * Reason Onset Date Comments MEDICATION REFILL 09/12/2020 Encounter Details Date Type Department Care Team (Late st Contact Info) Description 09/12/[address] [address] Amor Farley, DO [address] [place] [address] MEDICATION REFILL Social History Tobacco Use Types Packs/Day Years Used Date Smoking Tobacco: Never Smokeless Tobacco: Never Alcohol Use Standard Drinks/Week Comments No 0 (1 standard drink = 0.6 oz pur e alcohol) PHQ-2 Answer Date Recorded PHQ2 TOTAL SCORE 2 07/10/2020 Comments No Sex and Gender Information Value Date Recorded Sex Assigned at Not on file Legal Sex Female 6:31 AM SUPERVISORY EXAMINER Gender Identity Female 09/25/2017 10:09 AM CDT [...] st Contact Info) Description 01/26/2025 9:00 AM SUPERVISORY EXAMINER Office Visit [facility] - Rheumatology [address] [place] [address], [facility] [place] [address] Saritha Mayberry MD [address] [place] [address] [place] [address] documented as of this encounter Goals Goal [...] Safety General On track( 024 10:49 AM SUPERVISORY EXAMINER) No Arleth Mcghee, RN Note: Expected end [...] Under Investigation 03/07/2023 03/07/2023 03/07/2023 4:14 PM SUPERVISORY EXAMINER documented as of this encounter Care Teams Postmaster Relief Relationship Specialty Start Date End Date Amor Arboleda DO [address] [place] [address] PCP - General 11/12/19 10/24/21 Amor Arboleda DO [address] [place] [address] PCP - General Family Medicine Geriatric Medicine 12/03/22 Nelly Ozuna APRN-AUTOMOBILE PARKER [address] [place] [id number] Nurse Practitioner Nurse Practitioner 06/19/20 documented as of this encounter
--- OUTSIDE RECORDS SUMMARY | 2025-01-16 19:16 | XMS_ITS | Clinical Summary ---
Author Organization [facility] Address [address] 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 Gender Identity Not on file Sexual Orientation Not on file Plan of Treatment Health Maintenance Due Date Last Done Comments DTAP/TDAP/TD VACCINES (1 - Tdap) 09/26/1982 HPV/Cotest (21-29) 09/26/1984 CERVICAL CANCER SCREENING 09/26/1993 HPV/Cotest (30-65) 09/26/1993 PAP SMEAR 09/26/1993 BREAST CANCER SCREENING 2003 COLORECTAL SCREENING 09/26/2008 Colorectal Cancer Screening 09/26/2008 FIT-DNA Q 3 years 09/26/2008 FIT/FOBT Q 1 year 09/26/2008 Flex Sig/CT Colonography Q 5 years 09/26/2008 ZOSTER VACCINE (1 of 2) 09/26/2013 INFLUENZA VACCINE (#1) 2024 RSV VACCINE (60+ or ) (1 - 1-dose 75+ series) 09/26/2038
--- OUTSIDE RECORDS SUMMARY | 2025-01-16 19:16 | XMS_ITS | Patient Health Record ---
Author Organization [facility] mikey Address [address] [facility] [place] [address] Care Team Providers Care Aquarist Name Role Phone William Ochoa Unavailable [phone] Allergies Allergen (clinical drug ingredient) Drug/Non Drug Allergy documented on EMR Reaction Allergy Type Onset Date Status fentanyl Fentanyl Unknown Drug Allergy Active Reason For Referral No Information Medications Medication SIG (Take, Route, Frequency, Duration) Notes Start Date End Date Status Zolpidem Tartrate *Pick strength-form from Medispan for eRX* Not-Taking Cymbalta *Pick strength-form from Medispan for eRX* Active Xanax *Pick strength-form from Medispan for eRX* Not-Taking ALPRAZolam *Pick strength-form from Medispan for eRX* Active amLODIPine Besylate 5mg *Pick strength-form from Medispan for eRX* Not-Taking DULoxetine HCl *Pick strength-form from Medispan for eRX* Active Maxalt 10mg *Pick strength-form from Medispan for eRX* Not-Taking predniSONE 10mg as directed orally 4 tablets qAM for 3 days, 3 tablets qAM for 3 days, 2 tablets qAM for 3 days, 1 tablet qAM for 3 days; Duration: 12 days 12/15/2013 Not-Taking Spironolactone *Pick strength-form from Medispan for eRX* Active Lasix *Pick strength-form from Medispan for eRX* Not-Taking Promethazine HCl *Pick strength-form from Medispan for eRX* Active Simvastatin 40mg *Pick strength-form from Medispan for eRX* Not-Taking Furosemide *Pick strength-form from Medispan for eRX* Not-Taking Cefdinir *Pick strength-form from Medispan for eRX* Active Potassium *Pick strength-form from Medispan for eRX* Not-Taking Methadone HCl 10 MG Orally Not-Taking Problems Problem Type SNOMED Code ICD Code Onset Dates Problem Status W/U Status Risk Notes Problem Chronic pain syndrome (311297179) Chronic pain syndrome (338.4) Active confirmed Problem Systemic lupus erythematosus (40458787) Systemic lupus erythematosus (710.0) Active confirmed Problem Rheumatoid arthritis (40702729) Rheumatoid arthritis (714.0) Active confirmed Problem Chronic pain syndrome (202830218) Chronic pain syndrome (G89.4) Active confirmed Problem Osteoarthritis (453526684) Polyosteoarthrit is, unspecified (M15.9) Active confirmed Problem Primary osteoarthritis (289458207) Unilateral primary osteoarthritis, right knee (M17.11) Active confirmed Problem Systemic lupus erythematosus (90416177) Systemic lupus erythematosus, unspecified (M32.9) Active confirmed Problem Fibromyalgia (514974037) Fibromyalgia (M79.7) Active confirmed Problem Osteoarthritis (409699983) Multiple Sites OA (715.90) Active confirmed Plan Of Treatment No Information Medical (General) History Medical History History ICD Code high blood pressure Gout thyroid trouble cellulitits Cirhrosis of the Liver Surgical History Surgery Date(Month/Year) section ovarian tumor removal ovarian cyst removal Heart Cathorization
--- OUTSIDE RECORDS SUMMARY | 2025-01-16 19:17 | XMS_ITS | Encounter Summary ---
Author Organization [facility] Health Address [address] [place] [address] Care Team Providers Care Customer Counter Representative Name Role Phone Amor Arboleda DO Primary Care Provider + Nelly Ozuna APRN-SOLAR ENERGY ENGINEER Unavailable [phone] Amor Arboleda DO Primary Care Provider + Reason for Visit * Reason Onset Date Comments MEDICATION REFILL 06/16/2020 Encounter Details Date Type Department Care Team (Late st Contact Info) Description 06/16/[address] [address] Amor Farley W, DO [address] [place] [address] MEDICATION REFILL Social History Tobacco Use Types Packs/Day Years Used Date Smoking Tobacco: Never Smokeless Tobacco: Never Alcohol Use Standard Drinks/Week Comments No 0 (1 standard drink = 0.6 oz pur e alcohol) Comments No Sex and Gender Information Value Date Recorded Sex Assigned at Not on file Legal Sex Female 6:31 AM MENTAL HEALTH CLINICIAN Gender Identity Female 09/25/2017 10:09 AM CDT [...] Thomas RN * Does person have difficulty dressing/bathing? Answer Date of Assessment Author No 07/03/2018 9:35 AM Grace Thomas RN * Does person have difficulty doing errands alone? Answer Date of Assessment Author No 07/03/2018 9:35 AM GONÁZLEZT Grace Hsu RN documented as of this encounter Mental Status * Does person have difficulty concentrating/remembering/making decisions? Answer Entry Date Author No 07/03/2018 9:35 AM Grace Thomas RN documented in this encounter Plan of Treatment Upcoming Encounters Date Type Department Care Team (Late st Contact Info) Description 01/26/2025 9:00 AM MENTAL HEALTH CLINICIAN Office Visit [facility] - Rheumatology [address] [place] [address], [place] [address] Saritha Mayberry MD [address] [place] [address] [place] [address] documented as of this encounter Goals Goal Patient Goal Type Associated Problems Recent Progress Patient-Stated? Author Medication Management General On track( 024 11:16 AM CDT) No Dena Echavarria RN Note: Expected end date: Ongoing Interventions: Take all medications as prescribed Let your doctor know right away about any changes in your medications Make sure to request a refill of your medication at least one week prior to your last dose Safety General On track( 024 10:49 AM MENTAL HEALTH CLINICIAN) Arleth Arnold, RN Note: Expected end date: ongoing Interventions: [...] Under Investigation 03/07/2023 03/07/2023 03/07/2023 4:14 PM MENTAL HEALTH CLINICIAN documented as of this encounter Care Teams Customer Counter Representative Relationship Specialty Start Date End Date Amor Arboleda DO [address] [place] [address] PCP - General 11/12/19 10/24/21 Amor Arboleda DO [address] [place] [address] PCP - General Family Medicine Geriatric Medicine 12/03/22 Nelly Ozuna APRN-SOLAR ENERGY ENGINEER [address] [place] [address] Nurse Practitioner Nurse Practitioner 06/19/20 documented as of this encounter
--- OUTSIDE RECORDS SUMMARY | 2025-01-16 19:17 | XMS_ITS | Encounter Summary ---
Author Organization [facility] Address [address] [place] [address] Care Team Providers Care Government Teacher Name Role Phone Unavailable Primary Care Provider Unavailabl e Encounter Details Date Type Department Care Team (Late st Contact Info) Description 03/23/1999 Outpatient Historical [facility] INTERNAL MEDIC[facility] Sonia Ocampo MD [address] [place], [place] [id number] Social History Tobacco Use Types Packs/Day Years Used Date Smoking Tobacco: Never Assessed Comments Unknown Sex and Gender Information Value Date Recorded Sex Assigned at Not on file Legal Sex Female 4:25 AM REGIONAL ACCOUNT EXECUTIVE Gender Identity Not on file Sexual Orientation Not on file documented as of this encounter Plan of Treatment Not on file documented as of this encounter Visit Diagnoses Not on filedocumented in this encounter
--- OUTSIDE RECORDS SUMMARY | 2025-01-16 19:17 | XMS_ITS | Clinical Summary ---
Author Organization [facility] Address [address] [facility] [address] [place] [address] Phone Care Team Providers Care Multicraft Operator Name Role Phone Osvaldo Dawson DO Unavailable [phone] Jemma Guardado MD Unavailable Amor Arboleda DO [...] 30 Tablet 12/09/2022 Active Vitamin D, Ergocalciferol, 71003 units Capsule Take 50,000 Units by mouth. [...] deficiency 10/10/2023 Iron deficiency anemia, unspecified 10/10/2023 Immunizations Immunization Administration Dates Next Due HIB [...] on file Legal Sex Female 9:04 AM PEST CONTROLLER Gender Identity Not on file Sexual Orientation Not on file Last Filed Vital Signs Vital Sign Reading Time Taken Comments Blood Pressure 156/90 12/25/2023 11:01 AM CDT Pulse 78 12/25/2023 11:01 AM CDT Temperature 37 C (98.6 F) 12/25/2023 11:01 AM CDT Respiratory Rate 18 12/25/2023 11:0 1 AM CDT Oxygen Saturation 96% 12/25/2023 11: 01 AM CDT Inhaled Oxygen Concentration - - Weight 113.4 kg (249 lb 14.4 oz) 2023 11:01 AM CDT Height 167.6 cm (5' 6) 12/25/2023 11:0 1 AM CDT Body Mass Index 40.33 12/25/2023 11:01 AM CDT Plan of Treatment Health Maintenance Due Date Last Done Comments TdaP Immunization 1963 Pap Smear 09/26/1984 Cervical Cancer Screening (CCS) 09/26/1993 HPV/Cotest 09/26/1993 Medicare Initial AWV [id number] 06/02/2003 Cologuard 09/26/2008 Colonoscopy 09/26/2008 Colorectal Cancer Screening 09/26/2008 Immunochemical Fecal Occult Blood 09/26/2008 Respiratory Syncytial Virus (RSV) Immunization (Adult) (1 - Risk 50-74 years 1-dose series) 09/26/2013 Zoster Immunization (1 of 2) 09/26/2013 Mammogram 01/30/2024 01/29/2023, 01/29/2023 Influenza Immunization (#1) 2024 SARS-COV-2 Immunization (1 - season) 2024 Pneumococcal Immunization (5 0+ years) (3 of 3 - PCV20 or PCV21) 09/21/2025 09/21/2020, 03/19/2018 Hepatitis C Virus (HCV) Screening Completed 05/07/2018 Pneumococcal Immunization Combined Discontinued 09/21/2020, 03/19/2018 Hepatitis B Immunization Aged Out No longer eligible based on patient's age to complete this topic Human Papillomavirus (HPV) Immunization Aged Out No longer eligible based on patient's age to complete this topic Meningococcal Immunization (ACWY) Aged Out No longer eligible based on patient's age to complete this topic Rotavirus Immunization Aged Out No lo nger eligible based on patient's age to complete this topic Insurance MEDICARE [place] MEDICARE C [employer] [place] Care Teams Multicraft Operator Relationship Specialty Start Date End Date Amor Arboleda DO [address] [place] [address] PCP - General Family Medicine 09/12/23 Osvaldo Dawson DO Gastroenterology 04/22/17 Jemma Guardado MD [address] [place] [address] Consulting Physician Oncology 12/09/22
[2025-01-16 19:23] VITALS: BP 216/133; PULSE 75; RESP 18; TEMP 36.2; O2SAT 97
--- NOTE | 2025-01-16 21:26 | ED_ITS ---
HPI - General Adult General Chief complaint: Extremity Injury, Upper Stated complaint: left hand injury Time Seen by Provider: 01/16/25 20:51 History of Present Illness HPI narrative: 59-year-old female presenting after a fall. She reports severe left wrist and hand pain. She denies numbness/tingling. She is unaware of how she fell reporting that she was not dizzy, she did not lose consciousness, and did not hit her head. Left hand neurovascular intact. Related Data Home Medications ?Medication ?Instructions ?Recorded ?Confirmed ?Last Taken ?Type potassium chloride 10 mEq 10 meq PO DAILY 01/20/1906/06/21 History tablet,extended release furosemide 80 mg tablet 80 mg PO DAILY 04/06/1903/0406/06/21 History pantoprazole 40 mg tablet,delayed 40 mg PO QAM 0 03/28/24 06/05/21 History release rizatriptan 10 mg tablet 10 mg PO DAILY PRN Migraine 04/28/19 03/28/24 Unknown History Headache spironolactone 100 mg tablet 100 mg PO DAILY 04/28/19 03/28/24 06/06/21 History omega 9-ycg-oeh-fish oil 1,000 mg 1 cap PO DAILY 07/1403/28/24 06/06/21 History (120 mg-180 mg) capsule (Fish Oil) albuterol 90 mcg/actuation aerosol 180 mcg inhalation TID PRN dyspnea 08/19/20 03/28/24 Unknown History inhaler amlodipine 5 mg tablet 5 mg PO DAILY 09/14/2203/28 Unknown History nortriptyline 10 mg capsule 10 mg PO DAILY 09/14/22 Unknown History rifaximin 550 mg tablet (Xifaxan) 550 mg PO DAILY 08/3103/28/24 Unknown History cholecalciferol (vitamin D3) 125 5,000 unit PO DAILY 0 03/28/24 03/28/24 Unknown H istory mcg (5,000 unit) capsule hydroxyzine HCl 10 mg tablet 10 mg PO HS 03/28/2403/04 Unknown History magnesium oxide 200 mg PO DAILY 03/28/24 Unknown History Allergies Allergy/AdvReac Type Severity Reaction Status Date / Time fentanyl AdvReac Unknown N/V Verified 01/25/25 10:51 gi cocktail Allergy Intermediate Hives Uncoded 01/25/25 10:51 Review of Systems Review of Systems: All systems reviewed & are unremarkable except as noted in HPI and below PMFSH Past Medical History Medical History Hypertension Diet-controlled diabetes mellitus Systemic lupus erythematosus Hyperlipemia Obstructive sleep apnea Irritable bowel disease Gastroesophageal reflux disease Cerebrovascular accident (10/2005) Type 2 diabetes mellitus with diabetic polyneuropathy Portal vein thrombosis On chronic anticoagulation with Coumadin Hypothyroidism Essential hypertension Kidney stones Anxiety Depression Gout Degenerative disc disease Arthritis Chronic pain Previously on methadone but this was discontinued in June of 2018. Cirrhosis Status post TIPS. Followed at [facility]. Asthma Heart murmur Normal echocardiogram April 2017. Headaches due to old head injury Fibromyalgia On chronic pain medication Surgical History Surgical History History of hysterectomy In her early to mid 30's due to fibrotic disease. History of transjugular intrahepatic portosystemic shunt (2018) History of section History of carpal tunnel surgery of right wrist History of laparoscopic cholecystectomy (07/2016) Family History Family History Mother Hypertension Breast cancer Cerebrovascular accident Coronary artery disease Father Cerebrovascular accident Coronary artery disease With DC at 40 years old Social History Social History Social History: Surrogate medical decision maker: Tara Gillespie, sister. Code status: Full code. Smoking status: Never smoker Second hand tobacco smoke exposure: No Alcohol intake: never Substance use: never Substance use type: does not use Lack of Transportation: No Lack of Food: Never True Current Housing: I Have Housing Concerned About Future Housing: No Difficulty Paying Gas/Electric Bills: No Difficulty Paying for Meds: No Currently Unemployed: No Education: High School Diploma/GED Difficulty w/ Childcare or Family Care: No Living arrangements: alone Occupation/Education: other Additional occupation/education comments: Disability Spiritual care concerns: No Agree to blood products: Yes Exam Narrative: GENERAL: Uncomfortable-appearing, well-nourished, and in mild acute distress. HEAD: Normocephalic, atraumatic. EYES: PERRLA and EOMI. ENT: Nares clear, no rhinorrhea or epistaxis. Mucous membranes moist. Oropharynx without tonsillar hypertrophy exudate or other lesions. Bilateral TMs pearly yt non-bulging NECK: Supple. No adenopathy or masses. No carotid bruits or JVD CHEST: Clear to auscultation. No respiratory distress. No wheezes rales or rhonchi HEART: Regular rate and rhythm. No murmur heard. Normal peripheral pulses. ABDOMEN: Soft, nontender, nondistended, normal active bowel sounds. EXTREMITIES: Left hand/wrist ROM and strength limited due to pain. Neurovascular intact. Good cap refill. Mild lateral ecchymosis and edema noted. SKIN: Warm, dry, no rash. NEURO: No focal deficits. Alert and oriented x3. PSYCH: Normal mood and affect Course Vital Signs Vital signs: Vital Signs Temperature 97.1 F L 01/16/25 19:23 Pulse Rate 75 01/16/25 19:23 Respiratory Rate 18 01/16/25 19:23 Blood Pressure 216/133 H 01/16/25 19:23 Pulse Oximetry 97 01/16/25 19:23 Oxygen Delivery Room Air 01/16/25 19:23 Temperature 97.1 F L 01/16/25 19:23 Pulse Rate 75 01/16/25 19:23 Respiratory Rate 18 01/16/25 19:23 Blood Pressure 216/133 H 01/16/25 19:23 Pulse Oximetry 97 01/16/25 19:23 Oxygen Delivery Room Air 01/16/25 19:23 Medical Decision Making [facility] Narrative Medical decision making narrative: 59-year-old female presenting after a fall. She reports severe left wrist and hand pain. She denies numbness/tingling. She is unaware of how she fell reporting that she was not dizzy, she did not lose consciousness, and did not hit her head. Left hand neurovascular intact. Upon my initial assessment patient appears uncomfortable. Exam caused patient severe distress due to pain. Neurovascular intact. Strength and range of motion limited by pain. No tenderness at the anatomical snuffbox. Left wrist and hand x-ray demonstrated no acute fractures or malalignment. Gave patient [place] and reassessed. Pain improved. Patient put in volar splint. Splint was placed by the emergency department operating room technician under my supervision. The patient was neurovascularly intact both pre-and post-procedure. Other ER provider Dr. Mcallister also saw and assessed the patient. Spoke with on-call ortho provider about having the patient follow up with him outpatient. Treatment plan discussed with patient. The patient is appropriate for further outpatient treatment and follow-up. Given reasons to return. Medical Records Medical records reviewed: Yes I reviewed the external patient's medical records. Vital Signs Vital Signs: Vital Signs Temperature 97.1 F L 01/16/25 19:23 Pulse Rate 75 01/16/25 19:23 Respiratory Rate 18 01/16/25 19:23 Blood Pressure 216/133 H 01/16/25 19:23 Pulse Oximetry 97 01/16/25 19:23 Oxygen Delivery Room Air 01/16/25 19:23 Temperature 97.1 F L 01/16/25 19:23 Pulse Rate 75 01/16/25 19:23 Respiratory Rate 18 01/16/25 19:23 Blood Pressure 216/133 H 01/16/25 19:23 Pulse Oximetry 97 01/16/25 19:23 Oxygen Delivery Room Air 01/16/25 19:23 Imaging Data Attestation: I personally reviewed and interpreted this imaging study as follows: Radiologist's impression: ITS Impressions Hand X-Ray 01/16/25 19:46 Impression: No acute fracture or malalignment. Wrist X-Ray 01/16/25 19:47 Impression: No acute fracture or malalignment. Discharge Plan Discharge Clinical Impression: Left wrist sprain Qualifiers: Encounter type: initial encounter Wrist sprain location: unspecified location Qualified Code(s): S63.502A - Unspecified sprain of left wrist, initial encounter Patient Disposition: Home Condition: Stable Instructions: Wrist Sprain (ED) Additional Instructions: Return to the ER if you experience fever, redness and swelling of your extremity, coldness or blue/pale fingers, numbness or any other symptoms that are concerning to you. Limit activity with affected wrist, elevate, and ice as needed for comfort. Tylenol and NSAIDs (Naproxen, Ibuprofen, Aleve) and pain medicine as needed for pain. Follow up with Dr. Gordillo with orthopedics for further care. Follow-up with PCP for any other general concerns. Patient Language: Malay Prescriptions: New hydrocodone-acetaminophen 5-325 mg tablet 1 tablet PO Q6H PRN (Reason: pain) Qty: 10 0RF No Action potassium chloride 10 mEq tablet extended release 10 meq PO DAILY omega 2-cfl-xzk-fish oil [Fish Oil] 1,000 mg (120 mg-180 mg) Capsule 1 cap PO DAILY promethazine 25 mg tablet 25 mg PO TID PRN (Reason: nausea and vomiting) Qty: 10 0RF amlodipine 5 mg tablet 5 mg PO DAILY nortriptyline 10 mg capsule 10 mg PO DAILY Patient Comments: HS Xifaxan 550 mg tablet 550 mg PO DAILY naproxen [Naprosyn] 500 mg tablet 500 mg PO BID PRN (Reason: pain) Qty: 20 0RF lidocaine 5 % adhesive patch,medicated 1 patch topical DAILY Qty: 15 0RF Rx Instructions: leave on most painful area for up to 12 hrs oxycodone 5 mg tablet 5 mg PO Q8H PRN (Reason: pain) Qty: 10 0RF furosemide 80 mg tablet 80 mg PO DAILY pantoprazole 40 mg Tablet,Delayed Release (Dr/Ec) 40 mg PO QAM rizatriptan 10 mg Tablet 10 mg PO DAILY PRN (Reason: Migraine Headache) spironolactone 100 mg Tablet 100 mg PO DAILY albuterol 90 mcg/actuation Aerosol 180 mcg INHALATION TID PRN (Reason: dyspnea) Rx Instructions: take 2 puffs cyclobenzaprine 10 mg tablet 10 mg PO TID PRN (Reason: muscle spasm) Qty: 20 0RF cholecalciferol (vitamin D3) 125 mcg (5,000 unit) capsule 5,000 unit PO DAILY magnesium oxide 200 mg magnesium tablet 200 mg PO DAILY Patient Comments: takes 2 to make 400mg hydroxyzine HCl 10 mg tablet 10 mg PO HS levothyroxine 125 mcg tablet See Rx Instructions .ROUTE .COMPLEX Qty: 30 0RF Dose Instruction: TAKE 1 TABLET BY MOUTH EVERY DAY Rx Instructions: TAKE 1 TABLET BY MOUTH EVERY DAY Follow-up/Referrals: Robles,DO Amor [Primary Care Provider] Jesus Gordillo MD [Physician, Orthopedics] Stand Alone Forms: Work/School Release IP
[2025-01-16] MEDS: HYDROcodone/acetaminophen (*CRX) 5-325 MG TABLET 1 TAB PO (22:31)
--- NOTE | 2025-02-17 13:05 | PC.NURSE ---
LATE ENTRY This note is being entered to document information to the patient's record. The following information was omitted on [01/16/25], by [Pearl aTpia RN). Short arm splint applied to left hand/wrist.
== END 2025-01-16 23:39 | disposition home or self-care (01) ==
PROVIDERS: PCP Student in an Organized Health Care Education/Training Program
DX: S63.502A Unspecified sprain of left wrist, initial encounter (principal); W18.30XA Fall on same level, unspecified, initial encounter; I10 Essential (primary) hypertension; E11.9 Type 2 diabetes mellitus without complications; E78.5 Hyperlipidemia, unspecified; K21.9 Gastro-esophageal reflux disease without esophagitis; M32.9 Systemic lupus erythematosus, unspecified; Z79.01 Long term (current) use of anticoagulants; E03.9 Hypothyroidism, unspecified; Z86.718 Personal history of other venous thrombosis and embolism; K74.60 Unspecified cirrhosis of liver; J45.909 Unspecified asthma, uncomplicated
CPT/HCPCS: 29125; 73110; 73130; 99284; A9270

== ENCOUNTER 2025-01-23 04:23 | Emergency (ER) | payer MEDICARE, MEDICAID, SELFPAY ==
--- NOTE | ~2025-01-23 | XR_ITS ---
Examination: XR shoulder RT min 2V Clinical History: fall 1wk ago, pain Comparison: None Technique: 2 views right shoulder Findings/impression: 1. No fracture or dislocation right shoulder given 2 view series. 2. Mild AC joint degenerative changes. Reviewed, dictated and finalized at location R. T TEAM CLERK
[2025-01-23 04:24] VITALS: BP 164/76; PULSE 73; RESP 20; TEMP 36.8; O2SAT 98
--- NOTE | 2025-01-23 05:58 | ED.FALL ---
HPI - Fall General Chief Complaint: Fall Stated Complaint: fall Time Seen by Provider: 01/23/25 05:42 History of Present Illness HPI Narrative: 59-year-old female presenting after a fall last week. Patient states she fell onto her right upper extremity last week after she tripped in a parking lot. She went to a hospital and had x-rays and was given some pain medications for several days. She states she has been taking her Tylenol and ibuprofen at home and finished her [place] previously and not having any relief of her pain presently is she is having worsening pain in her right shoulder area. She endorses pain in her right lateral shoulder and the shoulder blade itself. The area that she landed on when she fell. Denies any new traumatic injuries or other symptoms. Patient is asking for pain relief. Was otherwise in her normal state of health. No bruising, difficulty breathing, loss of consciousness, blood thinner use, paresthesias or weakness in the limb. Related Data Home Medications ?Medication ?Instructions ?Recorded ?Confirmed ?Last Taken ?Type potassium chloride 10 mEq 10 meq PO DAILY 01/20/19 03/28/24 06/06/21 History tablet,extended release furosemide 80 mg tablet 80 mg PO DAILY 04/06/19 03/28/24 06/06/21 History pantoprazole 40 mg tablet,delayed 40 mg PO QAM 04/06/19 03/28/24 06/05/21 History release rizatriptan 10 mg tablet 10 mg PO DAILY PRN Migraine 04/28/19 03/28/24 Unknown History Headache spironolactone 100 mg tablet 100 mg PO DAILY 04/28/19 03/28/24 06/06/21 History omega 4-cbe-lck-fish oil 1,000 mg 1 cap PO DAILY 07/15/19 03/28/24 06/06/21 History (120 mg-180 mg) capsule (Fish Oil) albuterol 90 mcg/actuation aerosol 180 mcg inhalation TID PRN dyspnea 08/19/20 03/28/24 Unknown History inhaler amlodipine 5 mg tablet 5 mg PO DAILY 09/14/22 03/28/24 Unknown History nortriptyline 10 mg capsule 10 mg PO DAILY 09/14/22 03/28/24 Unknown History rifaximin 550 mg tablet (Xifaxan) 550 mg PO DAILY 09/14/22 03/28/24 Unknown History cholecalciferol (vitamin D3) 125 5,000 unit PO DAILY 03/28/24 03/28/24 Unknown History mcg (5,000 unit) capsule hydroxyzine HCl 10 mg tablet 10 mg PO HS 03/28/24 03/28/24 Unknown History magnesium oxide 200 mg PO DAILY 03/28/24 03/28/24 Unknown History Allergies Allergy/AdvReac Type Severity Reaction Status Date / Time fentanyl AdvReac Unknown N/V Verified 01/23/25 04:29 gi cocktail Allergy Intermediate Hives Uncoded 05/13/23 15:09 Review of Systems Review of Systems: As reviewed above in HPI All systems reviewed & are unremarkable except as noted in HPI and below PMFSH Past Medical History Medical History Hypertension Diet-controlled diabetes mellitus Systemic lupus erythematosus Hyperlipemia Obstructive sleep apnea Irritable bowel disease Gastroesophageal reflux disease Cerebrovascular accident (10/2005) Type 2 diabetes mellitus with diabetic polyneuropathy Portal vein thrombosis On chronic anticoagulation with Coumadin Hypothyroidism Essential hypertension Kidney stones Anxiety Depression Gout Degenerative disc disease Arthritis Chronic pain Previously on methadone but this was discontinued in June of 2018. Cirrhosis Status post TIPS. Followed at [facility]. Asthma Heart murmur Normal echocardiogram April 2017. Headaches due to old head injury Fibromyalgia On chronic pain medication Surgical History Surgical History History of hysterectomy In her early to mid 30's due to fibrotic disease. History of transjugular intrahepatic portosystemic shunt (2018) History of section History of carpal tunnel surgery of right wrist History of laparoscopic cholecystectomy (07/2016) Family History Family History Mother Hypertension Breast cancer Cerebrovascular accident Coronary artery disease Father Cerebrovascular accident Coronary artery disease With ME at 40 years old Social History Social History Social History: Surrogate medical decision maker: Tara Gillespie, sister. Code status: Full code. Smoking status: Never smoker Second hand tobacco smoke exposure: No Alcohol intake: never Substance use: never Substance use type: does not use Do You Feel Safe in your Home?: Yes Lack of Transportation: No Lack of Food: Never True Current Housing: I Have Housing Concerned About Future Housing: No Difficulty Paying Gas/Electric Bills: No Difficulty Paying for Meds: No Currently Unemployed: No Education: High School Diploma/GED Difficulty w/ Childcare or Family Care: No Living arrangements: alone Occupation/Education: other Additional occupation/education comments: Disability Spiritual care concerns: No Agree to blood products: Yes Exam Narrative: GENERAL: [Well-appearing, well-nourished, and in no acute distress.] HEAD: [Normocephalic, atraumatic.] EYES: [PERRLA and EOMI.] ENT: Nares clear, no rhinorrhea or epistaxis. Mucous membranes moist. NECK: Supple. CHEST: [Clear to auscultation. No respiratory distress.] HEART: [Regular rate and rhythm]. No murmur heard. [Normal peripheral pulses.] ABDOMEN: [Soft, nondistended], [nontender], [No rigidity or guarding] EXTREMITIES: Focal tenderness to palpation over the posterior lateral aspect of the right shoulder near the deltoid and posterior AC joint. Able to abduct and flex the extremity but after 90? has significant pain. Positive Neer's testing. No step-offs deformities. No bruising externally. No elbow injury or restricted range of motion of the elbow or hand. Full program arranger strength. 2+ pulses and warm extremity. No midline thoracic spinal tenderness or any deformities. SKIN: Warm, dry, no rash. NEURO: [No focal deficits]. Alert and oriented [x3.] PSYCH: [Normal mood and affect.] Course Vital Signs Vital signs: Vital Signs Temperature 36.8 C 01/23/25 04:24 Pulse Rate 73 01/23/25 04:24 Respiratory Rate 20 01/23/25 04:24 Blood Pressure 164/76 H 01/23/25 04:24 Pulse Oximetry 98 01/23/25 04:24 Oxygen Delivery Room Air 01/23/25 04:24 Temperature 36.8 C 01/23/25 04:24 Pulse Rate 80 01/23/25 06:32 Respiratory Rate 18 01/23/25 06:32 Blood Pressure 125/82 01/23/25 06:32 Pulse Oximetry 98 01/23/25 06:32 Oxygen Delivery Room Air 01/23/25 04:24 MDM - Fall MDM Narrative Medical decision making narrative: 59-year-old female presenting after a fall last week. Patient states she fell onto her right upper extremity last week after she tripped in a parking lot. She went to a hospital and had x-rays and was given some pain medications for several days. She states she has been taking her Tylenol and ibuprofen at home and finished her [place] previously and not having any relief of her pain presently is she is having worsening pain in her right shoulder area. She endorses pain in her right lateral shoulder and the shoulder blade itself. The area that she landed on when she fell. Denies any new traumatic injuries or other symptoms. Patient is asking for pain relief. Was otherwise in her normal state of health. No bruising, difficulty breathing, loss of consciousness, blood thinner use, paresthesias or weakness in the limb. Focal tenderness to palpation over the posterior lateral aspect of the right shoulder near the deltoid and posterior AC joint. Able to abduct and flex the extremity but after 90? has significant pain. Positive Neer's testing. No step-offs deformities. No bruising externally. No elbow injury or restricted range of motion of the elbow or hand. Full program arranger strength. 2+ pulses and warm extremity. No midline thoracic spinal tenderness or any deformities. Patient is hemodynamically stable and neurovascularly intact. X-rays obtained to rule out fracture but most likely impingement or bursitis or musculoskeletal strain/contusion. X-rays were negative aside from arthritis. She was given Dilaudid for pain control and placed into a sling for comfort and given orthopedics for follow-up. Pain control medications sent to her pharmacy. Medical Records Attestation: I reviewed the patient's medical records. Imaging Data Attestation: I personally reviewed and interpreted this imaging study as follows: My impression: Arthritic changes otherwise no fracture. Discharge Plan Discharge Clinical Impression: AC (acromioclavicular) arthritis, Right shoulder pain Patient Disposition: Home Condition: Stable Instructions: Antibiotic Form, Shoulder Bursitis (ED), Shoulder Pain (ED), Rotator Cuff Injury Exercises (DC) Additional Instructions: X-rays show arthritis at the AC joint but no fracture. We will send you some pain control medications. Return with any emergent concerns. Follow-up with orthopedics. Patient Language: Portuguese Prescriptions: New naproxen [Naprosyn] 500 mg tablet 500 mg PO BID PRN (Reason: pain) Qty: 20 0RF lidocaine 5 % adhesive patch,medicated 1 patch topical DAILY Qty: 15 0RF Rx Instructions: leave on most painful area for up to 12 hrs oxycodone 5 mg tablet 5 mg PO Q8H PRN (Reason: pain) Qty: 10 0RF No Action potassium chloride 10 mEq tablet extended release 10 meq PO DAILY omega 3-naw-spi-fish oil [Fish Oil] 1,000 mg (120 mg-180 mg) Capsule 1 cap PO DAILY promethazine 25 mg tablet 25 mg PO TID PRN (Reason: nausea and vomiting) Qty: 10 0RF amlodipine 5 mg tablet 5 mg PO DAILY nortriptyline 10 mg capsule 10 mg PO DAILY Patient Comments: HS Xifaxan 550 mg tablet 550 mg PO DAILY furosemide 80 mg tablet 80 mg PO DAILY pantoprazole 40 mg Tablet,Delayed Release (Dr/Ec) 40 mg PO QAM rizatriptan 10 mg Tablet 10 mg PO DAILY PRN (Reason: Migraine Headache) spironolactone 100 mg Tablet 100 mg PO DAILY albuterol 90 mcg/actuation Aerosol 180 mcg INHALATION TID PRN (Reason: dyspnea) Rx Instructions: take 2 puffs cyclobenzaprine 10 mg tablet 10 mg PO TID PRN (Reason: muscle spasm) Qty: 20 0RF cholecalciferol (vitamin D3) 125 mcg (5,000 unit) capsule 5,000 unit PO DAILY magnesium oxide 200 mg magnesium tablet 200 mg PO DAILY Patient Comments: takes 2 to make 400mg hydroxyzine HCl 10 mg tablet 10 mg PO HS hydrocodone-acetaminophen 5-325 mg tablet 1 tablet PO Q6H PRN (Reason: pain) Qty: 10 0RF levothyroxine 125 mcg tablet See Rx Instructions .ROUTE .COMPLEX Qty: 30 0RF Dose Instruction: TAKE 1 TABLET BY MOUTH EVERY DAY Rx Instructions: TAKE 1 TABLET BY MOUTH EVERY DAY Follow-up/Referrals: Vincent Bahena MD [Physician, Orthopedics] - 1 Week Referral Note: AC arthritis Robles,DO Amor [Primary Care Provider] Time of Disposition: 06:07
[2025-01-23] MEDS: HYDROmorphone HCL INJ (*CRX) 1 MG/ML SYR IM (06:13)
[2025-01-23 06:32] VITALS: BP 125/82; PULSE 80; RESP 18; O2SAT 98
== END 2025-01-23 06:37 | disposition home or self-care (01) ==
LOC: ANHED 06:19
PROVIDERS: Emergency Provider Student in an Organized Health Care Education/Training Program; PCP Student in an Organized Health Care Education/Training Program
DX: M19.011 Primary osteoarthritis, right shoulder (principal); E11.9 Type 2 diabetes mellitus without complications; I10 Essential (primary) hypertension; E03.9 Hypothyroidism, unspecified; Z79.899 Other long term (current) drug therapy; Z86.73 Personal history of transient ischemic attack (TIA), and cerebral infarction without residual deficits; W19.XXXA Unspecified fall, initial encounter
CPT/HCPCS: 73030; 96372; 99283; A4565; J1171